=== PATIENT | male | born 1940 | race Caucasian/White ===

== ENCOUNTER → 2020-11-27 09:33 | Outpatient (CLI) | payer MEDICARE, SELFPAY ==
[2020-11-27] MEDS: COVID-19 VACC #1, MRNA(MOD) 100 MCG/0.5 ML VIAL IM (09:43)
== END ==
PROVIDERS: Referring Provider Internal Medicine; Visit Provider Internal Medicine
DX: Z23 Encounter for immunization (principal)
CPT/HCPCS: 0011A; 91301

== ENCOUNTER 2020-12-01 12:07 | Inpatient (IN) | payer OTHER, SELFPAY ==
[2020-12-01] VITALS (13 sets, daily range): BP systolic 108–158; BP diastolic 53–87; PULSE 53–70; RESP 14–21; TEMP 36.3–37.3; O2SAT 96–100; BMI 25.2
--- NOTE | 2020-12-01 | DI.ECHO.S_ITS ---
[place] +---------+ [facility] +---------+ : : [address] : : : [address] : : : : [id number] : : : : Phone: [phone]+ Echocardiogram Report + + :Name: RIKA TREVIÑO Study Date: 12/02/2020 Height: 71 in : :[facility] ReadingLocation: Weight: 181 lb : : Gender: Male BSA: 2.0 m2 : :: 1940 Age: 79 yrs BP: 107/50 mmHg: :Reason For Study: Murmur : :Ordering Physician: : :RABIA DUNN Performed By: Gregor Reeves : :Referring: RABIA DUNN : + + Interpretation Summary The left ventricle is grossly normal size. The ejection fraction is estimated to be 55-60%. The right ventricle is grossly normal size. The right ventricular systolic function is normal. The aortic valve is trileaflet. There is mildly reduced leaflet mobility. The aortic valve mean gradient is 13 mmHg. The peak aortic velocity is 2.59 m/sec. The calculated aortic valve area is 1.5 cm2. There is mild aortic stenosis by limited views. There is mild to moderate tricuspid regurgitation. The right ventricular systolic pressure is estimated to be at least 38 mmHg based on an estimated right atrial pressure of 3 mm Hg. Procedure: A two-dimensional transthoracic echocardiogram with color flow and Doppler was performed. The study quality was technically difficult. There is no prior echocardiogram noted for this patient. The patient was in sinus bradycardia with heart rates between 49-55 bpm during the exam. Left Ventricle: The left ventricle is not well visualized. Left ventricular wall thickness is borderline increased. The left ventricle is grossly normal size. There is no thrombus. The ejection fraction is estimated to be 55-60%. Septal motion is consistent with conduction abnormality. MV E/A: 1.9 Med Peak E' Emerson: 6.6 cm/sec E/E' med: 13.2. Right Ventricle: The right ventricle is grossly normal size. The right ventricle is not well visualized. The right ventricular systolic function is normal. Atria: The left atrium is not well visualized. Right atrium not well visualized. There is no Doppler evidence for an interatrial shunt. The interatrial septum bows toward right atrium consistent with elevated left atrial pressure. Mitral Valve: The mitral valve leaflets appear mildly thickened, but open well. There is mild mitral annular calcification. The mitral valve leaflets are mildly calcified. There is trace mitral regurgitation. Aortic Valve: The aortic valve is not well visualized. The aortic valve is mildly calcified. There is mildly reduced leaflet mobility. The aortic valve is trileaflet. There is mild aortic stenosis by limited views. The aortic valve mean gradient is 13 mmHg. The peak aortic velocity is 2.59 m/sec. The calculated aortic valve area is 1.5 cm2. No aortic regurgitation is present. Tricuspid Valve: The tricuspid valve is not well visualized, but is grossly normal. There is mild to moderate tricuspid regurgitation. The right ventricular systolic pressure is estimated to be at least 38 mmHg based on an estimated right atrial pressure of 3 mm Hg. Pulmonic Valve: The pulmonic valve is not well visualized. There is no pulmonic valvular regurgitation. Great Vessels: The aortic root is normal size. The dimensions of the ascending aorta are normal. The IVC is of normal diameter and collapses greater than 50% with a sniff. This suggests a low right atrial pressure of 3 mm Hg. Pericardium/ Pleura There is no pericardial effusion. There is no pleural effusion. MMode/2D Measurements & Calculations LVIDd: 5.7 cm LVOT diam: 2.3 cm LVIDs: 3.8 cm Ao root diam: 3.1 cm FS: 34.2 % asc Aorta Diam: 3.2 cm IVSd: 1.1 cm LVPWd: 0.98 cm LV laura. diameter/BSA (cm/m^2): 2.8 LV sys. diameter/BSA (cm/m^2): 1.9 RA area: 24.8 cm2 TAPSE: 1.8 cm IVC diam: 2.0 cm Doppler Measurements & Calculations Ao V2 max: 259.1 cm/sec LVOT Max Emerson: 82.1 cm/sec Ao V2 mean: 166.2 cm/sec LV V1 max P.7 mmHg Ao max P.9 mmHg LV V1 VTI: 21.7 cm Ao mean P.8 mmHg TURNER(I,D): 1.5 cm2 Ao V2 VTI: 60.7 cm TURNER(V,D): 1.3 cm2 sev ratio: 0.36 TURNER indexed to BSA (cm^2/m^2): 0.72 MV E max emerson: 87.6 cm/sec TR max emerson: 295.8 cm/sec MV A max emerson: 45.5 cm/sec TR max P.0 mmHg MV E/A: 1.9 PA pr(Accel): 48.2 mmHg Med Peak E' Emerson: 6.6 cm/sec E/E' med: 13.2 Lat Peak E' Emerson: 12.1 cm/sec E/E' lat: 7.2 E/e' average: 10.2 MV dec time: 0.19 sec SV(LVOT): 88.5 ml Reading Physician:11:04 AM
--- NOTE | 2020-12-01 12:13 | DI.RAD.S_ITS ---
PROCEDURE: XR CHEST 1V INDICATIONS: Possible stroke TECHNIQUE: One view of the chest was acquired. COMPARISON: None. FINDINGS: Surgical changes and devices: None. Lungs and pleura: Lungs are clear. No pleural effusions or pneumothorax. Mediastinum: Mediastinal contours appear normal. Heart size is normal. Bones and chest wall: No suspicious bony lesions. Overlying soft tissues appear unremarkable. IMPRESSION: No acute cardiopulmonary process. Dictated by: Luis Thomson M.D. on 12/01/2020 at 12:33 Approved by: Luis Thomson M.D. on 12/01/2020 at 12:33
--- NOTE | 2020-12-01 12:16 | DI.CT.S_ITS ---
PROCEDURE: CT STROKE INDICATIONS: slurred speech and generalized weakness 0300 TECHNIQUE: Noncontrast 4.5 mm thick angled axial sections acquired from the foramen magnum to the vertex, with coronal reformats. For radiation dose reduction, the following was used: automated exposure control, adjustment of mA and/or kV according to patient size. COMPARISON: None. FINDINGS: Image quality: Excellent. CSF spaces: Basal cisterns are patent. No extra-axial fluid collections. Ventricles are normal in size and shape. Brain: No midline shift. No intracranial masses or hemorrhage. Medley-white matter interface is normal. Skull and face: Calvarium and visualized facial bones are intact, without suspicious lesions. Sinuses: Mild bilateral maxillary sinus disease, right greater than left. IMPRESSION: No acute intracranial process. Findings (including all critical results, if any) and recommendations were personally telephoned and discussed with Dr. Dominguez on 12-01-20 12:38 This study fulfills neurological imaging criteria for inclusion or exclusion of acute stroke therapies based on available published neurological imaging guidelines. Dictated by: Flakito Trejo M.D. on 12/01/2020 at 12:37 Approved by: Flakito Trejo M.D. on 12/01/2020 at 12:39
[2020-12-01 12:21] LABS: Add Manual Diff / Slide Review NO; Basophils Absolute Auto 0 /uL (0-100); Basophils Percent Auto 0.4 % (0-2); Eosinophils Absolute Auto 0 /uL (0-450); Eosinophils Percent Auto 0.1 % (2-4); Lymphocytes Absolute Auto 800 /uL (1100-4500); Lymphocytes Percent Auto 11.2 % (25-40); Mean Corpuscular HGB Conc 32.1 % (30-36); Mean Corpuscular Hemoglobin 27.4 PG (26-34); Mean Corpuscular Volume 85.4 fL (80-100); Monocytes Absolute Auto 600 /uL (0-900); Monocytes Percent Auto 8.3 % (3-14); Neutrophils Absolute Auto 5800 /uL (1500-7000); Platelet Count 241 X10^3/uL (150-400); Red Blood Cell Count 1.78 X10^6/uL (4.5-5.9); Red Cell Distribution Width 18.6 % (11.6-14.8); White Blood Cell Count 7.3 X10^3/uL (4.5-11.0)
[2020-12-01 12:26] LABS: Hematocrit 15.2 % (41-53); Hemoglobin 4.9 g/dL (13.5-17.5)
[2020-12-01 12:33] LABS: Prothrombin Time 34.7 SECONDS (10.1-12.7)
[2020-12-01 12:35] LABS: PTT Partial Thromboplastin Tim 38 SECONDS (26.4-36.2)
[2020-12-01 12:37] LABS: Alanine Aminotransferase 24 IU/L (<50); Albumin 3.2 g/dL (3.5-5.0); Albumin Globulin Ratio 1.1 (1.0-2.8); Alkaline Phosphatase 73 U/L (38-126); Aspartate Aminotransferase 29 IU/L (17-59); BUN Creatinine Ratio 39.2 (6-22); Bilirubin Total 0.4 mg/dL (0.2-1.3); Blood Urea Nitrogen 40 mg/dL (9-20); Calcium 8.4 mg/dL (8.4-10.2); Carbon Dioxide 23 mmol/L (22-32); Chloride 109 mmol/L (98-107); Creatine Kinase 100 U/L (55-170); Estimated Glomerular Filt Rate > 60.0 mL/min (>60); Globulin 2.9 g/dL (1.7-4.1); Glucose 125 mg/dL (80-110); HEMOLYSIS 24 (0-50); Potassium 3.2 mmol/L (3.4-5.1); Sodium 141 mmol/L (137-145); Total Protein 6.1 g/dL (6.3-8.2)
--- NOTE | 2020-12-01 12:46 | ED.NEUROSD ---
HPI - Neuro Symptoms/Deficit General Chief Complaint: Neuro Symptoms/Deficit Stated Complaint: weakness Time Seen by Provider: 12/01/20 12:10 Source: EMS Mode of arrival: EMS Limitations: altered mental status History of Present Illness HPI Narrative: 79-year-old male former smoker on some type of on identified blood thinner presents by EMS for altered mental status and generalized weakness with confusion since about 3:00 a.m. this morning. He denies any traumas or falls. He denies any change in medications. He denies any nausea, vomiting or diarrhea. He denies chest pain or shortness of breath. He has had no change in stools and denies any black and tarry stools. He denies any history of GI bleed. He was not Onset (ago): hour(s) On Anticoagulants: Yes Related Data Allergies Allergy/AdvReac Type Severity Reaction Status Date / Time No Known Drug Allergies Allergy Verified 12/01/20 12:12 Review of Systems Hematologic/Lymphatic On Anticoagulants: Yes Exam Narrative Exam Narrative: GENERAL: [79] year old patient appears stated age. Thin, slightly confused, apparently at baseline per family HEAD: Atraumatic. Normocephalic. EYES: Pale conjunctiva Pupils equal round and reactive. Extraocular motions intact. No scleral icterus. No injection or drainage. ENT: Nose without bleeding, purulent drainage. Throat without erythema, tonsillar hypertrophy or exudate. Airway patent. NECK: Trachea midline. Non tender CARDIOVASCULAR: Regular rate and rhythm without murmurs, gallops, or rubs. RESPIRATORY: Clear to auscultation. Breath sounds equal bilaterally. No wheezes, rales, or rhonchi. GASTROINTESTINAL: Abdomen soft, non-tender, nondistended. RECTAL: Melena on exam, no bright red blood, heme-positive. Performed with nursing music executive at bedside and patient permission EXTREMITIES: No edema or joint tenderness. BACK: Nontender without deformity or crepitance. No flank tenderness. NEURO: AOx3. SKIN: No rash or erythema of visible areas Initial Vital Signs Initial Vital Signs: Vital Signs Temperature 97.4 F L 12/01/20 12:08 Pulse Rate 70 12/01/20 12:08 Respiratory Rate 16 12/01/20 12:08 Blood Pressure 158/87 H 12/01/20 12:08 Pulse Oximetry 98 12/01/20 12:08 Course Orders Ordered: ED Orders 12/01/20 12:13 XR chest 1V Stat Urine Drug Screen, Rapid Stat EKG-12 Lead Stat 12/01/20 12:16 CT Stroke Stat 12/01/20 12:17 Complete Blood Count AUTO DIFF Stat Comprehensive Metabolic Panel Stat Haptoglobin Stat Iron Profile (w/ % Saturation) Stat Lactate Dehydrogenase Stat Partial Thromboplastin Time Stat Prothrombin Time INR Stat Reticulocyte Count, Percent Stat Troponin & CK Cardiac Panel Stat 12/01/20 12:20 Packed Cells Stat Type and Screen Stat 12/01/20 12:40 COVID19 - ADMIT (WRIST HEMMER swab/PCR) Stat 12/01/20 12:53 Consult to General Surgery Stat 12/01/20 13:43 Education, smoking cessation ONGOING 12/02/20 Basic Metabolic Panel Routine Complete Blood Count AUTO DIFF Routine Prothrombin Time INR Routine Acetaminophen (Acetaminophen 325 Mg Tablet) 650 mg PO Q6HR PRN PRN Reason: Fever/Mild Pain (1-3) Naloxone HCl (Naloxone 0.4 Mg/Ml Vial) 0.2 mg IV Q2MIN PRN PRN Reason: Opiate Reversal Pantoprazole Sodium (Pantoprazole 40 Mg Vial) 40 mg IV BID FE Discontinued Medications Phytonadione 5 mg/ Dextrose 50.5 mls @ 101 mls/hr IV NOW ONE Stop: 12/01/20 13:46 Last Admin: 12/01/20 14:40 Dose: 101 mls/hr Documented by: LAUREN Pantoprazole Sodium (Pantoprazole 40 Mg Vial) 40 mg IV NOW ONE Stop: 12/01/20 14:46 Last Admin: 12/01/20 14:45 Dose: Not Given Documented by: LAUREN Consultations Consultation #1: I spoke with on-call General surgery (Soham) given his presentation of upper GI bleed, requiring transfusions, while on anticoagulation. She is happy to be involved in consultation Consultation #2: hospitalist happy to accept Vital Signs Vital signs: Vital Signs - 8 hr 12/01/20 12:08 Temperature 97.4 F L Pulse Rate 70 Respiratory Rate 16 Blood Pressure 158/87 H Pulse Oximetry 98 MDM - Neuro Symptoms/Deficit Lab Data Result diagrams: 12/01/20 12:17 12/01/20 12:17 Labs: Lab Results 12/01/20 12/01/20 12/01/20 Range/Units 12:17 12:17 12:17 WBC 7.3 (4.5-11.0) X10^3/uL RBC 1.78 L (4.5-5.9) X10^6/uL Hgb 4.9 L* (13.5-17.5) g/dL Hct 15.2 L* (41-53) % MCV 85.4 (80-100) fL MCH 27.4 (26-34) PG MCHC 32.1 (30-36) % RDW 18.6 H (11.6-14.8) % Plt Count 241 (150-400) X10^3/uL Neut % (Auto) 80.0 H (50-75) % Lymph % (Auto) 11.2 L (25-40) % Barnwell % (Auto) 8.3 (3-14) % Eos % (Auto) 0.1 L (2-4) % Baso % (Auto) 0.4 (0-2) % Neut # (Auto) 5800 (3065-6195) /uL Lymph # (Auto) 800 L (3525-8699) /uL Barnwell # (Auto) 600 (0-900) /uL Eos # (Auto) 0 (0-450) /uL Baso # (Auto) 0 (0-100) /uL Percent Retic (0.87-2.60) % PT 34.7 H (10.1-12.7) SECONDS INR 3.0 H (0.9-1.3) APTT 38 H (26.4-36.2) SECONDS Sodium 141 (137-145) mmol/L Potassium 3.2 L (3.4-5.1) mmol/L Chloride 109 H (98-107) mmol/L Carbon Dioxide 23 (22-32) mmol/L BUN 40 H (9-20) mg/dL Creatinine 1.02 (0.66-1.25) mg/dL Estimated GFR > 60.0 (>60) mL/min BUN/Creatinine Ratio 39.2 H (6-22) Glucose 125 H (80-110) mg/dL Calcium 8.4 (8.4-10.2) mg/dL Iron (49-181) ug/dL TIBC (261-462) ug/dL % Saturation (20-50) % Transferrin (206-381) mg/dL Total Bilirubin 0.4 (0.2-1.3) mg/dL AST 29 (17-59) IU/L ALT 24 (<50) IU/L Alkaline Phosphatase 73 (38-126) U/L Lactate Dehydrogenase (313-618) U/L Total Creatine Kinase 100 (55-170) U/L CK-MB (CK-2) TNP CK-MB (CK-2) Rel Index TNP Troponin I < 0.012 (0.01-0.034) ng/mL Total Protein 6.1 L (6.3-8.2) g/dL Albumin 3.2 L (3.5-5.0) g/dL Globulin 2.9 (1.7-4.1) g/dL Albumin/Globulin Ratio 1.1 (1.0-2.8) SARS-CoV-2 (PCR) (Negative) Blood Type Antibody Screen Crossmatch 12/01/20 12/01/20 12/01/20 Range/Units 12:17 12:17 12:17 WBC (4.5-11.0) X10^3/uL RBC (4.5-5.9) X10^6/uL Hgb (13.5-17.5) g/dL Hct (41-53) % MCV (80-100) fL MCH (26-34) PG MCHC (30-36) % RDW (11.6-14.8) % Plt Count (150-400) X10^3/uL Neut % (Auto) (50-75) % Lymph % (Auto) (25-40) % Barnwell % (Auto) (3-14) % Eos % (Auto) (2-4) % Baso % (Auto) (0-2) % Neut # (Auto) (6884-4700) /uL Lymph # (Auto) (8113-5701) /uL Barnwell # (Auto) (0-900) /uL Eos # (Auto) (0-450) /uL Baso # (Auto) (0-100) /uL Percent Retic 5.9 H (0.87-2.60) % PT (10.1-12.7) SECONDS INR (0.9-1.3) APTT (26.4-36.2) SECONDS Sodium (137-145) mmol/L Potassium (3.4-5.1) mmol/L Chloride (98-107) mmol/L Carbon Dioxide (22-32) mmol/L BUN (9-20) mg/dL Creatinine (0.66-1.25) mg/dL Estimated GFR (>60) mL/min BUN/Creatinine Ratio (6-22) Glucose (80-110) mg/dL Calcium (8.4-10.2) mg/dL Iron 14 L (49-181) ug/dL TIBC 326 (261-462) ug/dL % Saturation 4 L (20-50) % Transferrin 263 (206-381) mg/dL Total Bilirubin (0.2-1.3) mg/dL AST (17-59) IU/L ALT (<50) IU/L Alkaline Phosphatase (38-126) U/L Lactate Dehydrogenase 559 (313-618) U/L Total Creatine Kinase (55-170) U/L CK-MB (CK-2) CK-MB (CK-2) Rel Index Troponin I (0.01-0.034) ng/mL Total Protein (6.3-8.2) g/dL Albumin (3.5-5.0) g/dL Globulin (1.7-4.1) g/dL Albumin/Globulin Ratio (1.0-2.8) SARS-CoV-2 (PCR) (Negative) Blood Type Antibody Screen Crossmatch 12/01/20 12/01/20 Range/Units 12:20 12:40 WBC (4.5-11.0) X10^3/uL RBC (4.5-5.9) X10^6/uL Hgb (13.5-17.5) g/dL Hct (41-53) % MCV (80-100) fL MCH (26-34) PG MCHC (30-36) % RDW (11.6-14.8) % Plt Count (150-400) X10^3/uL Neut % (Auto) (50-75) % Lymph % (Auto) (25-40) % Barnwell % (Auto) (3-14) % Eos % (Auto) (2-4) % Baso % (Auto) (0-2) % Neut # (Auto) (4146-6483) /uL Lymph # (Auto) (0386-9438) /uL Barnwell # (Auto) (0-900) /uL Eos # (Auto) (0-450) /uL Baso # (Auto) (0-100) /uL Percent Retic (0.87-2.60) % PT (10.1-12.7) SECONDS INR (0.9-1.3) APTT (26.4-36.2) SECONDS Sodium (137-145) mmol/L Potassium (3.4-5.1) mmol/L Chloride (98-107) mmol/L Carbon Dioxide (22-32) mmol/L BUN (9-20) mg/dL Creatinine (0.66-1.25) mg/dL Estimated GFR (>60) mL/min BUN/Creatinine Ratio (6-22) Glucose (80-110) mg/dL Calcium (8.4-10.2) mg/dL Iron (49-181) ug/dL TIBC (261-462) ug/dL % Saturation (20-50) % Transferrin (206-381) mg/dL Total Bilirubin (0.2-1.3) mg/dL AST (17-59) IU/L ALT (<50) IU/L Alkaline Phosphatase (38-126) U/L Lactate Dehydrogenase (313-618) U/L Total Creatine Kinase (55-170) U/L CK-MB (CK-2) CK-MB (CK-2) Rel Index Troponin I (0.01-0.034) ng/mL Total Protein (6.3-8.2) g/dL Albumin (3.5-5.0) g/dL Globulin (1.7-4.1) g/dL Albumin/Globulin Ratio (1.0-2.8) SARS-CoV-2 (PCR) Negative (Negative) Blood Type B Positive Antibody Screen Negative Crossmatch See Detail Point of Care Testing Stool Occult Blood Positive MDM Narrative Medical decision making narrative: Patient is a very poor historian and was unable to contribute much more. It sounds like he was in his normal state of health up until last night when he started feeling confused and weak. Though he describes any obvious source of bleeding his rectal exam is consistent with melena, H&H is lower and will require transfusion as well as hospitalization for evaluation and stabilization of his condition Discharge Plan Departure Patient Disposition: Admitted As Inpatient Clinical Impression: Acute upper gastrointestinal bleeding, Anticoagulation adequate Admit Date/Time: 12/01/20 14:17 Admit Provider: Raymond Babcock
[2020-12-01 12:49] LABS: Troponin I < 0.012 ng/mL (0.01-0.034)
[2020-12-01 14:04] LABS: COVID19 - ADMIT (NP swab/PCR) Negative (Negative)
[2020-12-01 14:16] LABS: Reticulocyte Count, Percent 5.9 % (0.87-2.60)
--- NOTE | 2020-12-01 14:23 | PC.NURSE ---
attempted to contact son and , both numbers given to staff no longer in service.
[2020-12-01 14:26] LABS: Lactate Dehydrogenase 559 U/L (313-618)
[2020-12-01 14:27] LABS: HEMOLYSIS < 15 (0-50); Iron 14 ug/dL (49-181)
[2020-12-01 14:37] LABS: Percent Iron Saturation 4 % (20-50); Total Iron Binding Capacity 326 ug/dL (261-462); Transferrin 263 mg/dL (206-381)
[2020-12-01] MEDS: PHYTONADIONE (VIT K1) 5 MG in DEXTROSE 5 % IN WATER 50 ML 101 ML IV (14:40)
--- NOTE | 2020-12-01 15:32 | PC.NURSE ---
Admit Note Pt arrived to room 226 from ER at 1420, transferred to bed via slider board. Very drowsy, readily awakens to voice and is able to answer questions but is a poor historian concerning his home meds and past medical history. Permission given to obtain history from ([employer]). Pt with old dried dark stool to buttocks, small amount dark tarry stool noted. Oriented to room and call/tv/bed controls. Call light within reach. Bed alarm on for safety. No belongings with pt other than one pair of boxers. 1st unit of PRBCs currently infusing.
--- NOTE | 2020-12-01 19:43 | P.HP_ITS ---
History of Present Illness History of Present Illness Date Patient Seen: 12/01/20 Time Patient Seen: 14:43 Chief complaint: weakness Narrative: Mr. Pro is a 79M who comes in with altered mental status. History is difficult to obtain from patient and . He is on a blood thinner, neither is sure which one. He says it is for a cardiac condition. And it appears he is atrial fibrillation here, with an elevated INR of 3.0, but they can not confirm he has afib or is on coumadin. Patient presented with weakness and confusion that started this morning. He denies any falls, nausea, vomting, diarrhea, pain. No shortness of breath. He had no black or tarry stools. No vomiting blood. He did not have weakness, dizziness. He does not remember when last colonoscopy was. In the ER he was noted to have normal vital signs. Labs notable for hemoglobin of 4.9, INR 3.0, potassium 3.2, creatinine 1.02, BUN 40. He was noted to have melenotic appearing, guaiac positive stools. He was ordered for trasnfusion of blood. He was ordered for IV vitamin K, and IV protonix. Surgery was consulted for EGD. He was admitted for further treatment. Patient History Family & Social History Safety & Behavioral: Feels Safe in Current Yes Environment Been Physically Hurt or No Threatened By a Person Meds Home Medications and Allergies Allergies Allergy/AdvReac Type Severity Reaction Status Date / Time No Known Drug Allergies Allergy Verified 12/01/20 12:12 Review of Systems Review of Systems Narrative: 14 systems reviewed and negative aside from what is noted in HPI Exam Vital Signs (past 8 hours): - 12/01/20 12:08 12/01/20 14:20 12/01/20 14:52 Temperature 97.4 F L 98.2 F 98.2 F Pulse Rate 70 62 62 Respiratory Rate 16 17 17 Blood Pressure 158/87 H 118/56 L 118/56 L Pulse Oximetry 98 97 12/01/20 15:15 12/01/20 16:00 12/01/20 17:00 Temperature 98.1 F 98.4 F Pulse Rate 60 55 L Respiratory Rate 14 16 Blood Pressure 119/56 L 108/54 L Pulse Oximetry 98 98 12/01/20 18:38 12/01/20 18:43 12/01/20 19:12 Temperature 98.8 F 98.8 F 98.8 F Pulse Rate 56 L 56 L 59 L Respiratory Rate 17 17 19 Blood Pressure 114/53 L 114/53 L 114/53 L Pulse Oximetry 96 Oxygen Delivery Method Room Air Oxygen Flow Rate 2 Narrative Exam Narrative: GEN: chronically ill appearing, thin, confused HEENT: PERRL, moist mucous membranes, pale conjunctiva NECK: trachea midline, no JVD CV: RRR with 3/6 systolic ejection murmur PULM: clear bilaterally ABD: soft, nontender, nondistended, with no organomegaly EXT: warm and well perfused with no edema SKIN: no rashes noted NEURO: confused, moving all extremities PSYCH: pleasant, cooperative Objective Labs Result Diagrams: 12/01/20 12:17 12/01/20 12:17 Labs: Laboratory Results - last 24 hr 12/01/20 12/01/20 12/01/20 12:17 12:17 12:17 WBC 7.3 RBC 1.78 L Hgb 4.9 L* Hct 15.2 L* MCV 85.4 MCH 27.4 MCHC 32.1 RDW 18.6 H Plt Count 241 Neut % (Auto) 80.0 H Lymph % (Auto) 11.2 L [place] % (Auto) 8.3 Eos % (Auto) 0.1 L Baso % (Auto) 0.4 Neut # (Auto) 5800 Lymph # (Auto) 800 L [place] # (Auto) 600 Eos # (Auto) 0 Baso # (Auto) 0 Percent Retic PT 34.7 H INR 3.0 H APTT 38 H Sodium 141 Potassium 3.2 L Chloride 109 H Carbon Dioxide 23 BUN 40 H Creatinine 1.02 Estimated GFR > 60.0 BUN/Creatinine Ratio 39.2 H Glucose 125 H Calcium 8.4 Iron TIBC % Saturation Transferrin Total Bilirubin 0.4 AST 29 ALT 24 Alkaline Phosphatase 73 Lactate Dehydrogenase Total Creatine Kinase 100 CK-MB (CK-2) TNP CK-MB (CK-2) Rel Index TNP Troponin I < 0.012 Total Protein 6.1 L Albumin 3.2 L Globulin 2.9 Albumin/Globulin Ratio 1.1 SARS-CoV-2 (PCR) Blood Type Antibody Screen Crossmatch 12/01/20 12/01/20 12/01/20 12:17 12:17 12:17 WBC RBC Hgb Hct MCV MCH MCHC RDW Plt Count Neut % (Auto) Lymph % (Auto) [place] % (Auto) Eos % (Auto) Baso % (Auto) Neut # (Auto) Lymph # (Auto) [place] # (Auto) Eos # (Auto) Baso # (Auto) Percent Retic 5.9 H PT INR APTT Sodium Potassium Chloride Carbon Dioxide BUN Creatinine Estimated GFR BUN/Creatinine Ratio Glucose Calcium Iron 14 L TIBC 326 % Saturation 4 L Transferrin 263 Total Bilirubin AST ALT Alkaline Phosphatase Lactate Dehydrogenase 559 Total Creatine Kinase CK-MB (CK-2) CK-MB (CK-2) Rel Index Troponin I Total Protein Albumin Globulin Albumin/Globulin Ratio SARS-CoV-2 (PCR) Blood Type Antibody Screen Crossmatch 12/01/20 12/01/20 12:20 12:40 WBC RBC Hgb Hct MCV MCH MCHC RDW Plt Count Neut % (Auto) Lymph % (Auto) [place]imer % (Auto) Eos % (Auto) Baso % (Auto) Neut # (Auto) Lymph # (Auto) [place] # (Auto) Eos # (Auto) Baso # (Auto) Percent Retic PT INR APTT Sodium Potassium Chloride Carbon Dioxide BUN Creatinine Estimated GFR BUN/Creatinine Ratio Glucose Calcium Iron TIBC % Saturation Transferrin Total Bilirubin AST ALT Alkaline Phosphatase Lactate Dehydrogenase Total Creatine Kinase CK-MB (CK-2) CK-MB (CK-2) Rel Index Troponin I Total Protein Albumin Globulin Albumin/Globulin Ratio SARS-CoV-2 (PCR) Negative Blood Type B Positive Antibody Screen Negative Crossmatch See Detail Assessment & Plan Assessment & Plan narrative: Mr. Pro is a 79M with unknown medical history on a blood thinner, uncertain which, who presents with confusion found to have hemo globin of 4.9. 1. Anemia from GI bleeding, acute -patient currently hemodynamically stable with no tachycardia and normal blood pressure -has melenotic appearing stool, additionall elevated BUN consistent with possible upper GI bleed -will be NPO for possible EGD tomorrow -ordered for IV protonix -ordered for 2U PRBC, then recheck CBC after -check for other etiologies of anemia, check iron panel, b12/folate, retic count, haptoglobin -given vitamin k for elevated INR 2. Elevated INR -patient appears to possibly have atrial fibrillation based on telemetry -possibly on coumadin with elevated INR -will need to confirm medications 3. Systolic ejection murmur -ordered for ECHO to eval possible aortic stenosis Patient was unable to provide full medication list, and unable to provide full medical history. Will see if transfusion helps with patient's confusion CODE: DNR IVF: none Diet: NPO after midnight DVT ppx: SCDs due to bleeding
[2020-12-01 21:30] LABS: Folate 7.3 ng/mL (2.76-20.0); Vitamin B12 303 pg/mL (239-931)
--- NOTE | 2020-12-01 21:35 | PC.NURSE ---
Evening Shift Note This RN unable to contact patients to complete admission assessment. [phone] called, new number obtained by day shift nurse from . No answer, voicemail left with call back number at [phone]. At 2129 number [phone] on patient's admission paged called, no answer and this RN called and left message. This RN noted patient's cell phone in room. Patient more alert and able to unlock phone after several minutes. This RN with consent to search phone for 's number verified that [phone] number correct, patient states never answers phone. This RN also unable to obtain patients DPOA numbers per day shift nurse and names noted on admission. This RN attempted to verify medication with patient and patient unable to recall medications. Asked patient what pharmacy dispenses [facility]. Will pass on to mini shifter nurse and attempt to call patient's if time allows by change of shift.
[2020-12-01] MEDS: PANTOPRAZOLE 40 MG VIAL IV (22:26)
[2020-12-01 23:37] LABS: Mean Corpuscular HGB Conc 33.9 % (30-36); Mean Corpuscular Hemoglobin 29.2 PG (26-34); Platelet Count 170 X10^3/uL (150-400); Red Blood Cell Count 2.07 X10^6/uL (4.5-5.9); Red Cell Distribution Width 16.5 % (11.6-14.8); White Blood Cell Count 6.8 X10^3/uL (4.5-11.0)
[2020-12-01 23:41] LABS: Hematocrit 17.8 % (41-53)
[2020-12-02] VITALS (14 sets, daily range): BP systolic 99–145; BP diastolic 50–68; PULSE 45–54; RESP 11–18; TEMP 36.4–37.5; O2SAT 92–100
[2020-12-02] MEDS: FERROUS SULFATE 325 MG TABLET PO ×2 (00:19→17:16)
[2020-12-02 00:20] LABS: Alanine Aminotransferase 19 IU/L (<50); Albumin 2.3 g/dL (3.5-5.0); Alkaline Phosphatase 56 U/L (38-126); Aspartate Aminotransferase 25 IU/L (17-59); BUN Creatinine Ratio 39.8 (6-22); Bilirubin Total 1.4 mg/dL (0.2-1.3); Blood Urea Nitrogen 37 mg/dL (9-20); Calcium 7.8 mg/dL (8.4-10.2); Carbon Dioxide 28 mmol/L (22-32); Chloride 112 mmol/L (98-107); Estimated Glomerular Filt Rate > 60.0 mL/min (>60); Glucose 83 mg/dL (80-110); Potassium 3.2 mmol/L (3.4-5.1); Sodium 143 mmol/L (137-145); Total Protein 4.3 g/dL (6.3-8.2)
[2020-12-02 00:21] LABS: Albumin Globulin Ratio 1.2 (1.0-2.8); HEMOLYSIS < 15 (0-50)
[2020-12-02] MEDS: SODIUM CHLORIDE 0.9% FLUSH 10 ML IV ×2 (00:48→08:13)
--- NOTE | 2020-12-02 02:23 | PC.NURSE ---
Addendum entered by Stacie Ayers R.N. 12/02/20 05:46: Reviewed labs and vital signs with Luca MELARA, received orders to DC IVF and to give 4th unit of PRBC. Addendum entered by Stacie Ayers R.N. 12/02/20 03:34: 3rd unit of blood transfused and noted BP to have dropped to 99/55 with HR of 45. KELTON Segovia, informed and new orders received. BIBLICAL LANGUAGES PROFESSOR states she did not want transfusion reaction initiated. Verbal order to hold on giving 4th unit at this time. Original Note: patient arouses easily and is able to answer questions; knew his name, birthdate, age and that he is in [place]. Breath sounds CTA with sat of 100% currently on oxygen at 2L/min. HRR w/murmur but bradycardic with rate in 40-50 range. 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 Denies nausea. BT present and abdomen is soft. Has been incontinent of urine. Staff assisting patient to reposition q2h although he does participate in mobility. Has 1+ bilateral LE edema from mid thigh down. Denies pain. Wearing bilateral calf SCD's. Fall risk score is high and bed alarm is activated. h&h rechecked after transfusion complete at end of evening shift and critical lab reported to BIBLICAL LANGUAGES PROFESSOR so new orders received for additional transfusion of 2 units. Currently has 3rd unit infusing.
[2020-12-02] MEDS: LACTATED RINGERS 1,000 ML 84 ML IV (03:39)
[2020-12-02] MEDS: POTASSIUM CHLORIDE 40 MEQ in SODIUM CHLORIDE 0.9% 500 ML 130 ML IV (03:51)
[2020-12-02 04:22] LABS: Basophils Absolute Auto 0 /uL (0-100); Basophils Percent Auto 0.5 % (0-2); Eosinophils Absolute Auto 0 /uL (0-450); Eosinophils Percent Auto 0.4 % (2-4); Lymphocytes Absolute Auto 900 /uL (1100-4500); Lymphocytes Percent Auto 12.6 % (25-40); Mean Corpuscular HGB Conc 33.4 % (30-36); Mean Corpuscular Hemoglobin 28.5 PG (26-34); Mean Corpuscular Volume 85.5 fL (80-100); Monocytes Absolute Auto 800 /uL (0-900); Monocytes Percent Auto 11.5 % (3-14); Neutrophils Absolute Auto 5200 /uL (1500-7000); Platelet Count 154 X10^3/uL (150-400); Red Blood Cell Count 2.27 X10^6/uL (4.5-5.9); Red Cell Distribution Width 16.1 % (11.6-14.8)
[2020-12-02 04:24] LABS: BUN Creatinine Ratio 38.8 (6-22); Blood Urea Nitrogen 33 mg/dL (9-20); Calcium 7.5 mg/dL (8.4-10.2); Carbon Dioxide 27 mmol/L (22-32); Chloride 112 mmol/L (98-107); Estimated Glomerular Filt Rate > 60.0 mL/min (>60); Glucose 93 mg/dL (80-110); HEMOLYSIS < 15 (0-50); Sodium 142 mmol/L (137-145)
[2020-12-02 04:26] LABS: Hemoglobin 6.5 g/dL (13.5-17.5)
[2020-12-02 04:27] LABS: Add Manual Diff / Slide Review SLIDE REVIEW; Hematocrit 19.4 % (41-53)
[2020-12-02 04:32] LABS: INR 1.7 (0.9-1.3); Prothrombin Time 19.2 SECONDS (10.1-12.7)
[2020-12-02 04:37] LABS: Potassium 2.7 mmol/L (3.4-5.1)
[2020-12-02 05:14] LABS: Haptoglobin 159 mg/dL (34-355)
[2020-12-02 07:17] LABS: HEMOLYSIS < 15 (0-50); Iron 172 ug/dL (49-181)
[2020-12-02 07:28] LABS: Percent Iron Saturation 67 % (20-50); Total Iron Binding Capacity 256 ug/dL (261-462); Transferrin 180 mg/dL (206-381)
[2020-12-02 07:33] LABS: Anisocytosis 1+; Poikilocytosis 1+; Polychromasia 1+
[2020-12-02] MEDS: PANTOPRAZOLE 40 MG VIAL IV ×2 (08:13→21:07)
[2020-12-02] MEDS: POTASSIUM CHLORIDE 20 MEQ TAB 40 MEQ PO ×3 (11:02→21:33)
[2020-12-02] MEDS: POTASSIUM CHLORIDE 40 MEQ in SODIUM CHLORIDE 0.9% 500 ML 130 MEQ IV (11:02)
--- NOTE | 2020-12-02 11:17 | P.CONS_ITS ---
History of Present Illness Consult details Date Patient Seen: 12/02/20 Time Patient Seen: 11:17 Chief complaint: weakness Reason for consult: profound anemia Requesting provider: Yo Dominguez Narrative: 79-year-old male, presenting to the emergency department with weakness and confusion. Noted at that time to have profound anemia, and an INR of 3.0. Both patient and are poor historians. They know that he is on a blood thinner but cannot remember which, and that is for cardiac issues possibly atrial fibrillation observed during this hospital stay. Patient admitted to ICU for observation, transfusion, and correction of metabolic abnormalities. Vitamin K has brought his INR to 1.7. We can assume but not confirm that the blood thinner is in fact warfarin. However Plavix and Xeralto have been identified in his meds. . Meds Home Medications and Allergies Home Medications Medication Instructions Recorded Confirmed Type amiodarone 200 mg PO BID 12/02/20 12/02/20 History atorvastatin 40 mg PO DAILY 12/02/20 12/02/20 History clopidogrel 75 mg PO DAILY 12/02/20 12/02/20 History ferrous sulfate 325 mg PO Q OTHER DAY 12/02/20 12/02/20 History magnesium oxide 400 mg PO DAILY 12/02/20 12/02/20 History metoprolol succinate 50 mg PO BID 12/02/20 12/02/20 History omeprazole 40 mg PO DAILY 12/02/20 12/02/20 History rivaroxaban [Xarelto] 20 mg PO DAILY 12/02/20 12/02/20 History sacubitril-valsartan [Entresto] 0.5 tab PO BID 12/02/20 12/02/20 History Allergies Allergy/AdvReac Type Severity Reaction Status Date / Time No Known Drug Allergies Allergy Verified 12/01/20 12:12 Review of Systems Review of Systems ROS: Yes unobtainable due to mental status Exam Vital Signs (past 8 hours): - 12/02/20 03:23 12/02/20 04:19 12/02/20 05:25 Temperature 99 F 98.3 F Pulse Rate 45 L 52 L 54 L Respiratory Rate 15 17 17 Blood Pressure 99/55 L 120/56 L 129/61 Pulse Oximetry 98 12/02/20 05:40 12/02/20 05:48 12/02/20 08:00 Temperature 98.4 F 98.5 F Pulse Rate 49 L 53 L Respiratory Rate 16 18 Blood Pressure 107/50 L 136/63 Pulse Oximetry 97 97 Oxygen Delivery Method Room Air Oxygen Flow Rate 0 Const General: cooperative and comfortable Nutritional Appearance: average body habitus Orientation: alert, oriented to person and oriented to place [facility] Head: normal to inspection, normocephalic and atraumatic Ears: hearing grossly normal bilaterally Nose: external nose normal Face and sinus: normal facial exam Eyes General: appearance normal, both eyes and all related structures Sclera: sclerae normal Neck Neck: trachea midline Chest Chest: normal inspection of the chest Resp Effort & Inspection: normal respiratory effort and able to speak in complete sentences Cardio Rate: tachycardic Rhythm: abnormal rhythm GI Inspection: normal to inspection Palpation: soft Skin General: no rashes or lesions noted Trauma: no lacerations or abrasions Wounds: no wounds Neuro General: patient alert and patient awake Speech: speech normal Extrem General: normal to inspection and full ROM Psych Judgment: fair Objective Labs Result Diagrams: 12/02/20 04:05 12/02/20 04:05 Labs: Laboratory Results - last 24 hr 12/01/20 12/01/20 12/01/20 12:17 12:17 12:17 WBC 7.3 RBC 1.78 L Hgb 4.9 L* Hct 15.2 L* MCV 85.4 MCH 27.4 MCHC 32.1 RDW 18.6 H Plt Count 241 Neut % (Auto) 80.0 H Lymph % (Auto) 11.2 L Mathews % (Auto) 8.3 Eos % (Auto) 0.1 L Baso % (Auto) 0.4 Neut # (Auto) 5800 Lymph # (Auto) 800 L Mathews # (Auto) 600 Eos # (Auto) 0 Baso # (Auto) 0 RBC Morphology Polychromasia Poikilocytosis Anisocytosis Percent Retic Haptoglobin PT 34.7 H INR 3.0 H APTT 38 H Sodium 141 Potassium 3.2 L Chloride 109 H Carbon Dioxide 23 BUN 40 H Creatinine 1.02 Estimated GFR > 60.0 BUN/Creatinine Ratio 39.2 H Glucose 125 H Calcium 8.4 Iron TIBC % Saturation Transferrin Total Bilirubin 0.4 AST 29 ALT 24 Alkaline Phosphatase 73 Lactate Dehydrogenase Total Creatine Kinase 100 CK-MB (CK-2) TNP CK-MB (CK-2) Rel Index TNP Troponin I < 0.012 Total Protein 6.1 L Albumin 3.2 L Globulin 2.9 Albumin/Globulin Ratio 1.1 Vitamin B12 Folate Nasal Screen MRSA (PCR) SARS-CoV-2 (PCR) Blood Type Antibody Screen Crossmatch 12/01/20 12/01/20 12/01/20 12:17 12:17 12:17 WBC RBC Hgb Hct MCV MCH MCHC RDW Plt Count Neut % (Auto) Lymph % (Auto) Mathews % (Auto) Eos % (Auto) Baso % (Auto) Neut # (Auto) Lymph # (Auto) Mathews # (Auto) Eos # (Auto) Baso # (Auto) RBC Morphology Polychromasia Poikilocytosis Anisocytosis Percent Retic Haptoglobin 159 PT INR APTT Sodium Potassium Chloride Carbon Dioxide BUN Creatinine Estimated GFR BUN/Creatinine Ratio Glucose Calcium Iron 14 L TIBC 326 % Saturation 4 L Transferrin 263 Total Bilirubin AST ALT Alkaline Phosphatase Lactate Dehydrogenase 559 Total Creatine Kinase CK-MB (CK-2) CK-MB (CK-2) Rel Index Troponin I Total Protein Albumin Globulin Albumin/Globulin Ratio Vitamin B12 Folate Nasal Screen MRSA (PCR) SARS-CoV-2 (PCR) Blood Type Antibody Screen Crossmatch 12/01/20 12/01/20 12/01/20 12:17 12:17 12:20 WBC RBC Hgb Hct MCV MCH MCHC RDW Plt Count Neut % (Auto) Lymph % (Auto) Mathews % (Auto) Eos % (Auto) Baso % (Auto) Neut # (Auto) Lymph # (Auto) Mathews # (Auto) Eos # (Auto) Baso # (Auto) RBC Morphology Polychromasia Poikilocytosis Anisocytosis Percent Retic 5.9 H Haptoglobin PT INR APTT Sodium Potassium Chloride Carbon Dioxide BUN Creatinine Estimated GFR BUN/Creatinine Ratio Glucose Calcium Iron TIBC % Saturation Transferrin Total Bilirubin AST ALT Alkaline Phosphatase Lactate Dehydrogenase Total Creatine Kinase CK-MB (CK-2) CK-MB (CK-2) Rel Index Troponin I Total Protein Albumin Globulin Albumin/Globulin Ratio Vitamin B12 303 Folate 7.3 Nasal Screen MRSA (PCR) SARS-CoV-2 (PCR) Blood Type B Positive Antibody Screen Negative Crossmatch See Detail 12/01/20 12/01/20 12/01/20 12:40 15:25 23:30 WBC 6.8 RBC 2.07 L Hgb 6.0 L* Hct 17.8 L* MCV 86.0 MCH 29.2 MCHC 33.9 RDW 16.5 H Plt Count 170 Neut % (Auto) Lymph % (Auto) Mathews % (Auto) Eos % (Auto) Baso % (Auto) Neut # (Auto) Lymph # (Auto) Mathews # (Auto) Eos # (Auto) Baso # (Auto) RBC Morphology Polychromasia Poikilocytosis Anisocytosis Percent Retic Haptoglobin PT INR APTT Sodium Potassium Chloride Carbon Dioxide BUN Creatinine Estimated GFR BUN/Creatinine Ratio Glucose Calcium Iron TIBC % Saturation Transferrin Total Bilirubin AST ALT Alkaline Phosphatase Lactate Dehydrogenase Total Creatine Kinase CK-MB (CK-2) CK-MB (CK-2) Rel Index Troponin I Total Protein Albumin Globulin Albumin/Globulin Ratio Vitamin B12 Folate Nasal Screen MRSA (PCR) Negative for mrsa SARS-CoV-2 (PCR) Negative Blood Type Antibody Screen Crossmatch 12/01/20 12/02/20 12/02/20 23:30 04:05 04:05 WBC 7.0 RBC 2.27 L Hgb 6.5 L* Hct 19.4 L* MCV 85.5 MCH 28.5 MCHC 33.4 RDW 16.1 H Plt Count 154 Neut % (Auto) 75.0 Lymph % (Auto) 12.6 L Mathews % (Auto) 11.5 Eos % (Auto) 0.4 L Baso % (Auto) 0.5 Neut # (Auto) 5200 Lymph # (Auto) 900 L Mathews # (Auto) 800 Eos # (Auto) 0 Baso # (Auto) 0 RBC Morphology See below Polychromasia 1+ H Poikilocytosis 1+ H Anisocytosis 1+ H Percent Retic Haptoglobin PT 19.2 H D INR 1.7 H APTT Sodium 143 Potassium 3.2 L Chloride 112 H Carbon Dioxide 28 BUN 37 H Creatinine 0.93 Estimated GFR > 60.0 BUN/Creatinine Ratio 39.8 H Glucose 83 Calcium 7.8 L Iron TIBC % Saturation Transferrin Total Bilirubin 1.4 H AST 25 ALT 19 Alkaline Phosphatase 56 Lactate Dehydrogenase Total Creatine Kinase CK-MB (CK-2) CK-MB (CK-2) Rel Index Troponin I Total Protein 4.3 L Albumin 2.3 L Globulin 2.0 Albumin/Globulin Ratio 1.2 Vitamin B12 Folate Nasal Screen MRSA (PCR) SARS-CoV-2 (PCR) Blood Type Antibody Screen Crossmatch 12/02/20 12/02/20 04:05 04:05 WBC RBC Hgb Hct MCV MCH MCHC RDW Plt Count Neut % (Auto) Lymph % (Auto) Mathews % (Auto) Eos % (Auto) Baso % (Auto) Neut # (Auto) Lymph # (Auto) Mathews # (Auto) Eos # (Auto) Baso # (Auto) RBC Morphology Polychromasia Poikilocytosis Anisocytosis Percent Retic Haptoglobin PT INR APTT Sodium 142 Potassium 2.7 L* Chloride 112 H Carbon Dioxide 27 BUN 33 H Creatinine 0.85 Estimated GFR > 60.0 BUN/Creatinine Ratio 38.8 H Glucose 93 Calcium 7.5 L Iron 172 D TIBC 256 L % Saturation 67 H D Transferrin 180 L Total Bilirubin AST ALT Alkaline Phosphatase Lactate Dehydrogenase Total Creatine Kinase CK-MB (CK-2) CK-MB (CK-2) Rel Index Troponin I Total Protein Albumin Globulin Albumin/Globulin Ratio Vitamin B12 Folate Nasal Screen MRSA (PCR) SARS-CoV-2 (PCR) Blood Type Antibody Screen Crossmatch Assessment & Plan Assessment & Plan narrative: When patient is able to tolerate bowel prep, colonoscopy and EGD with anesthesia is recommended. Is tentatively scheduled for 3pm tomorrow. COVID-19 COVID-19 status: Negative Time Spent With Patient Time with patient: 25 - 35 minutes
[2020-12-02 13:48] LABS: Add Manual Diff / Slide Review NO; Basophils Absolute Auto 0 /uL (0-100); Basophils Percent Auto 0.5 % (0-2); Eosinophils Absolute Auto 0 /uL (0-450); Eosinophils Percent Auto 0.6 % (2-4); Hematocrit 24.6 % (41-53); Hemoglobin 8.2 g/dL (13.5-17.5); Lymphocytes Absolute Auto 800 /uL (1100-4500); Lymphocytes Percent Auto 11.2 % (25-40); Mean Corpuscular HGB Conc 33.4 % (30-36); Mean Corpuscular Hemoglobin 28.6 PG (26-34); Mean Corpuscular Volume 85.5 fL (80-100); Monocytes Absolute Auto 700 /uL (0-900); Monocytes Percent Auto 10.1 % (3-14); Neutrophils Absolute Auto 5700 /uL (1500-7000); Neutrophils Percent Auto 77.6 % (50-75); Platelet Count 160 X10^3/uL (150-400); Red Blood Cell Count 2.88 X10^6/uL (4.5-5.9); Red Cell Distribution Width 16.1 % (11.6-14.8); White Blood Cell Count 7.4 X10^3/uL (4.5-11.0)
[2020-12-02 14:03] LABS: BUN Creatinine Ratio 31.5 (6-22); Blood Urea Nitrogen 28 mg/dL (9-20); Calcium 7.8 mg/dL (8.4-10.2); Carbon Dioxide 26 mmol/L (22-32); Chloride 114 mmol/L (98-107); Estimated Glomerular Filt Rate > 60.0 mL/min (>60); Glucose 96 mg/dL (80-110); HEMOLYSIS < 15 (0-50); Potassium 3.3 mmol/L (3.4-5.1); Sodium 143 mmol/L (137-145)
--- NOTE | 2020-12-02 16:51 | CM.DANOTE ---
Discharge Planning/Care Management CM Discharge Assessment Start: 12/02/20 16:50 Freq: Status: Active Protocol: Document 12/02/20 16:50 ITV (Rec: 12/02/20 16:51 ITV [id number]) Discharge Planning Assessment Advance Directives? No History Provided By Patient,Medical Record Prior Living Arrangements House Household Members spouse Independent with ADL's Yes Is patient alert and oriented? Yes DME Already Rented / Owned FWW / Walker Review Status In Process
--- NOTE | 2020-12-02 17:12 | CM.DANOTE ---
Discharge Planning/Care Management DCP: assessment: case received and discussed in Team Round. Dr. Babcock stated pt has admitted with a GI bleed and [facility] Dr. Rousseau was taking him to surgery for endoscopy and colonoscopy tomorrow. Met now with pt and introduced self and role.] Pt states that he feels much better and is thinking more clearly than when he admitted. He confirms she lives at home with is Breanna. He uses a FWW at baseline and has used [facility] in the recent past. He confirms his PCP as Shivani Morales/Ravindra Fay. Payer: [employer]. Admission status: INPT DCP team will follow as POC unfolds. Pt may well benefit from HH services again CM Discharge Assessment Start: 12/02/20 16:50 Freq: Status: Active Protocol: Document 12/02/20 16:50 ITV (Rec: 12/02/20 16:51 ITV [id number]) Discharge Planning Assessment Advance Directives? No History Provided By Patient,Medical Record Prior Living Arrangements House Household Members spouse Independent with ADL's Yes Is patient alert and oriented? Yes DME Already Rented / Owned FWW / Walker Review Status In Process
[2020-12-02] MEDS: PEG3350/SOD SULF,BICARB,CL/KCL 4,000 ML SOLUTION 4000 ML PO (17:16)
--- NOTE | 2020-12-02 18:19 | PM.PN.1 ---
Subjective Subjective Date Patient Seen: 12/02/20 Time Patient Seen: 08:19 Interval history: Today he feels much improved, he is much less confused after the transfusion. He did get 2U PRBC then had hypotension and hemoglobin still less than 7. So ordered 2U PRBC more. No evidence of overt bleeding. Exam Vital Signs (past 8 hours): - 12/02/20 12:00 12/02/20 15:00 12/02/20 16:00 Temperature 98.6 F 99.5 F Pulse Rate 47 L 53 L Respiratory Rate 18 14 Blood Pressure 145/68 H 120/57 L Pulse Oximetry 97 98 100 Oxygen Delivery Method Room Air Oxygen Flow Rate 0 Narrative Exam Narrative: GEN: chronically ill appearing, thin, confused HEENT: PERRL, moist mucous membranes, pale conjunctiva NECK: trachea midline, no JVD CV: RRR with 3/6 systolic ejection murmur PULM: clear bilaterally ABD: soft, nontender, nondistended, with no organomegaly EXT: warm and well perfused with no edema SKIN: no rashes noted NEURO: confused, moving all extremities PSYCH: pleasant, cooperative Objective Labs Result Diagrams: 12/02/20 13:40 12/02/20 13:40 Labs: Laboratory Results - last 24 hr 12/01/20 12/01/20 12/01/20 12:17 12:17 12:20 WBC RBC Hgb Hct MCV MCH MCHC RDW Plt Count Neut % (Auto) Lymph % (Auto) [place] % (Auto) Eos % (Auto) Baso % (Auto) Neut # (Auto) Lymph # (Auto) [place] # (Auto) Eos # (Auto) Baso # (Auto) RBC Morphology Polychromasia Poikilocytosis Anisocytosis Haptoglobin 159 PT INR Sodium Potassium Chloride Carbon Dioxide BUN Creatinine Estimated GFR BUN/Creatinine Ratio Glucose Calcium Iron TIBC % Saturation Transferrin Total Bilirubin AST ALT Alkaline Phosphatase Total Protein Albumin Globulin Albumin/Globulin Ratio Vitamin B12 303 Folate 7.3 Nasal Screen MRSA (PCR) Blood Type B Positive Antibody Screen Negative Crossmatch See Detail 12/01/20 12/01/20 12/01/20 15:25 23:30 23:30 WBC 6.8 RBC 2.07 L Hgb 6.0 L* Hct 17.8 L* MCV 86.0 MCH 29.2 MCHC 33.9 RDW 16.5 H Plt Count 170 Neut % (Auto) Lymph % (Auto) [place] % (Auto) Eos % (Auto) Baso % (Auto) Neut # (Auto) Lymph # (Auto) [place] # (Auto) Eos # (Auto) Baso # (Auto) RBC Morphology Polychromasia Poikilocytosis Anisocytosis Haptoglobin PT INR Sodium 143 Potassium 3.2 L Chloride 112 H Carbon Dioxide 28 BUN 37 H Creatinine 0.93 Estimated GFR > 60.0 BUN/Creatinine Ratio 39.8 H Glucose 83 Calcium 7.8 L Iron TIBC % Saturation Transferrin Total Bilirubin 1.4 H AST 25 ALT 19 Alkaline Phosphatase 56 Total Protein 4.3 L Albumin 2.3 L Globulin 2.0 Albumin/Globulin Ratio 1.2 Vitamin B12 Folate Nasal Screen MRSA (PCR) Negative for mrsa Blood Type Antibody Screen Crossmatch 12/02/20 12/02/20 12/02/20 04:05 04:05 04:05 WBC 7.0 RBC 2.27 L Hgb 6.5 L* Hct 19.4 L* MCV 85.5 MCH 28.5 MCHC 33.4 RDW 16.1 H Plt Count 154 Neut % (Auto) 75.0 Lymph % (Auto) 12.6 L Montgomery % (Auto) 11.5 Eos % (Auto) 0.4 L Baso % (Auto) 0.5 Neut # (Auto) 5200 Lymph # (Auto) 900 L Montgomery # (Auto) 800 Eos # (Auto) 0 Baso # (Auto) 0 RBC Morphology See below Polychromasia 1+ H Poikilocytosis 1+ H Anisocytosis 1+ H Haptoglobin PT 19.2 H D INR 1.7 H Sodium 142 Potassium 2.7 L* Chloride 112 H Carbon Dioxide 27 BUN 33 H Creatinine 0.85 Estimated GFR > 60.0 BUN/Creatinine Ratio 38.8 H Glucose 93 Calcium 7.5 L Iron TIBC % Saturation Transferrin Total Bilirubin AST ALT Alkaline Phosphatase Total Protein Albumin Globulin Albumin/Globulin Ratio Vitamin B12 Folate Nasal Screen MRSA (PCR) Blood Type Antibody Screen Crossmatch 12/02/20 12/02/20 12/02/20 04:05 13:40 13:40 WBC 7.4 RBC 2.88 L Hgb 8.2 L Hct 24.6 L MCV 85.5 MCH 28.6 MCHC 33.4 RDW 16.1 H Plt Count 160 Neut % (Auto) 77.6 H Lymph % (Auto) 11.2 L Montgomery % (Auto) 10.1 Eos % (Auto) 0.6 L Baso % (Auto) 0.5 Neut # (Auto) 5700 Lymph # (Auto) 800 L Montgomery # (Auto) 700 Eos # (Auto) 0 Baso # (Auto) 0 RBC Morphology Polychromasia Poikilocytosis Anisocytosis Haptoglobin PT INR Sodium 143 Potassium 3.3 L Chloride 114 H Carbon Dioxide 26 BUN 28 H Creatinine 0.89 Estimated GFR > 60.0 BUN/Creatinine Ratio 31.5 H Glucose 96 Calcium 7.8 L Iron 172 D TIBC 256 L % Saturation 67 H D Transferrin 180 L Total Bilirubin AST ALT Alkaline Phosphatase Total Protein Albumin Globulin Albumin/Globulin Ratio Vitamin B12 Folate Nasal Screen MRSA (PCR) Blood Type Antibody Screen Crossmatch [facility] Medical History Atrial fibrillation Atrial flutter Barretts esophagus CHF (congestive heart failure) Chronic cough Degenerative arthritis GERD (gastroesophageal reflux disease) History of cardioversion Iron deficiency anemia Spinal stenosis of lumbar region with neurogenic claudication Surgical History History of coronary angioplasty with insertion of stent Hx of cholecystectomy Hx of tonsillectomy Social History household members: spouse Smoking Status: Never smoker alcohol intake: never Assessment & Plan Assessment & Plan narrative: Mr. Pro is a 79M with unknown medical history on a blood thinner, uncertain which, who presents with confusion found to have hemoglobin of 4.9. 1. Anemia from GI bleeding, acute -patient currently hemodynamically stable with no tachycardia and normal blood pressure -has melenotic appearing stool, additionall elevated BUN consistent with possible upper GI bleed -will be NPO for possible EGD/colonoscopy tomorrow, will get prepped with go lytely -ordered for IV protonix -ordered for 2U PRBC, then recheck CBC after -check for other etiologies of anemia, check iron panel, b12/folate, retic count, haptoglobin -given vitamin k for elevated INR, improved from 3->1.7 2. Elevated INR -patient appears to possibly have atrial fibrillation based on telemetry -possibly on coumadin with elevated INR -will need to confirm medications 3. Systolic ejection murmur -ordered for ECHO to eval possible aortic stenosis 4. Atrial fibrillation, paroxysmal -holding xarelto for now -patient rate controlled currently -plan to restart amiodarone tomorrow 5. CAD -on atorvastatin and plavix -holding plavix given bleed -plan to restart if stable after scope 6. CHF with EF unknown -patient on entresto -ECHO ordered -not in acute CHF currently -try to keep volume euvolemic as has gotten significant blood products patient able to provide full med list now CODE: DNR, spouse Breanna is proxy DIET: NPO after midnight DVT ppx: SCDs
[2020-12-02] MEDS: SENNOSIDES 8.6 MG TABLET 17.2 MG PO (21:07)
--- NOTE | 2020-12-02 23:27 | PC.NURSE ---
Patient was started on go lightly prep for his colonoscopy tomorrow at 17:30 by the RN. I set up the bed side commode and walker next to the side of the bed and removed his SCD's in anticipation of him getting up quickly when the urge came on. I kept checking in on him and refilling his cup after he finished one, but he still did not have the urge to sit on the commode. At around 22:30 I decided to get him up out of bed and walk around the room a bit to get things moving and then have him sit on the commode for awhile. This did not work and I put him back to bed after a brief and complete bed change. I let the RN know of his lack of output up to that point.
[2020-12-03] VITALS (19 sets, daily range): BP systolic 118–161; BP diastolic 59–74; PULSE 54–63; RESP 12–20; TEMP 36.3–37.2; O2SAT 93–99; BMI 25.7
--- NOTE | 2020-12-03 01:11 | PC.NURSE ---
@0241 encouraged pt to have BM on BSC, pt unable to have BM, brief was soiled with urine only. Pt at time denied having urge to have BM. Encouraged pt to continue drinking GoLitely, cup filled at beginning of noc shift.
[2020-12-03 05:56] LABS: Add Manual Diff / Slide Review NO; Basophils Absolute Auto 0 /uL (0-100); Basophils Percent Auto 0.4 % (0-2); Eosinophils Absolute Auto 100 /uL (0-450); Eosinophils Percent Auto 1.7 % (2-4); Hematocrit 21.1 % (41-53); Hemoglobin 7.3 g/dL (13.5-17.5); Lymphocytes Absolute Auto 1000 /uL (1100-4500); Lymphocytes Percent Auto 16.9 % (25-40); Mean Corpuscular HGB Conc 34.7 % (30-36); Mean Corpuscular Hemoglobin 29.6 PG (26-34); Mean Corpuscular Volume 85.3 fL (80-100); Monocytes Absolute Auto 600 /uL (0-900); Monocytes Percent Auto 9.7 % (3-14); Neutrophils Absolute Auto 4100 /uL (1500-7000); Neutrophils Percent Auto 71.3 % (50-75); Platelet Count 153 X10^3/uL (150-400); Red Blood Cell Count 2.47 X10^6/uL (4.5-5.9); Red Cell Distribution Width 16.3 % (11.6-14.8); White Blood Cell Count 5.7 X10^3/uL (4.5-11.0)
[2020-12-03 05:57] LABS: HEMOLYSIS < 15 (0-50); Iron 11 ug/dL (49-181)
[2020-12-03 06:03] LABS: Alanine Aminotransferase 20 IU/L (<50); Albumin 2.2 g/dL (3.5-5.0); Alkaline Phosphatase 68 U/L (38-126); Aspartate Aminotransferase 32 IU/L (17-59); BUN Creatinine Ratio 30.3 (6-22); Bilirubin Total 0.5 mg/dL (0.2-1.3); Blood Urea Nitrogen 23 mg/dL (9-20); Calcium 7.3 mg/dL (8.4-10.2); Carbon Dioxide 27 mmol/L (22-32); Chloride 113 mmol/L (98-107); Estimated Glomerular Filt Rate > 60.0 mL/min (>60); Globulin 2.2 g/dL (1.7-4.1); Glucose 90 mg/dL (80-110); HEMOLYSIS < 15 (0-50); Magnesium 1.7 mg/dL (1.6-2.3); Potassium 2.8 mmol/L (3.4-5.1); Sodium 143 mmol/L (137-145); Total Protein 4.4 g/dL (6.3-8.2)
[2020-12-03 06:07] LABS: Percent Iron Saturation 4 % (20-50); Total Iron Binding Capacity 246 ug/dL (261-462); Transferrin 183 mg/dL (206-381)
--- NOTE | 2020-12-03 06:48 | PC.NURSE ---
[employer] Developer Note-Patient drank approximately 3/4 jug of Golytly by the begging of shift, then few sips afterward, NPO after MN, no BM until am, then had 1200ml loose dark tarry stool on BSC, denies pain, cramping, nausea, or lightheadedness. H/H 7.3/21.1, K+ 2.8 reported to SPEED [employer]NER.
[2020-12-03] MEDS: FERROUS SULFATE 325 MG TABLET PO ×3 (07:04→17:16)
[2020-12-03] MEDS: POTASSIUM CHLORIDE 20 MEQ/15 ML UDC 40 MEQ PO (07:04)
[2020-12-03] MEDS: POTASSIUM CHLORIDE 40 MEQ in SODIUM CHLORIDE 0.9% 500 ML 130 ML IV (07:08)
[2020-12-03] MEDS: PANTOPRAZOLE 40 MG VIAL IV ×2 (10:34→21:05)
[2020-12-03] MEDS: FUROSEMIDE 40 MG/4 ML VIAL IV (13:02)
[2020-12-03 13:52] LABS: Hematocrit 26.4 % (41-53)
[2020-12-03] MEDS: LACTATED RINGERS 1,000 ML 42 ML IV (15:30)
--- NOTE | 2020-12-03 15:48 | PM.PREOP ---
Pre-operative Note COVID-19 COVID-19 status: Negative Interval Note History & Physical reviewed/Exam performed by Physician: Yes Changes to H&P: No ASA Class (for procedural sedation): III
--- NOTE | 2020-12-03 15:54 | PC.NURSE ---
Unit of blood transfused without problems. See [facility] record. No sxs of transfusion reaction.
--- NOTE | 2020-12-03 16:18 | PM.OP.1 ---
Operative Date/Time/Diagnoses Date of procedure: 12/03/20 Time of procedure: 16:15 Pre-op diagnosis: iron diff anemia Post-op diagnosis: same Procedure & Clinicians Procedure: EGD Same procedure as scheduled: Yes Indications: profound anemia Surgeon: Sophie Rousseau Anesthesia Type: General Operative Notes Findings: gastric erosions of stomach. Moderate hiatal hernia Closure Type: not applicable Specimen(s): none sent Estimated Blood Loss (mL): 0 Blood products transfused: none Procedure in detail: Preop diagnosis: Iron-deficiency anemia Postop diagnosis: Same Operative procedure: EGD with general anesthetic and LMA Surgeon: Leighann Rousseau MD Anesthesiologists: Israel Tapia MD Findings: Moderate size hiatal hernia. Gastric erosions in the distal stomach. Duodenum within normal limits. No active bleeding. Procedure: Patient is placed in a lateral position. Scope was inserted into the esophagus advanced into the proximal stomach which represented a moderate size hiatal hernia. I then entered into the intra-abdominal stomach identified the pylorus and intubated into the duodenum. Insufflation and extractions scope including retroflex at the above findings. No active bleeding identified. Impression: Gastric erosions, no ulcers. No masses. Moderate size hiatal hernia Plan: Colonoscopy aborted due to inadequate bowel prep. Will reprep bowel and reschedule for tomorrow. Continue on PPI for gastric erosion. Continue to hold anticoagulation with regards to Plavix and Xarelto. Complications: none Post-operative Condition: stable Disposition: PACU Plan for aftercare: repre colon and colonoscopy with anesthesia tomorrow.
--- NOTE | 2020-12-03 16:57 | P.PN_ITS ---
Subjective Subjective Date Patient Seen: 12/03/20 Time Patient Seen: 07:57 Interval history: Today he feels unchanged from previously. Overnight he did have large amount of melena in stool. He did not feel dizzy, his pressure remained stable. He was ordered for transfusion. Exam Vital Signs (past 8 hours): - 12/03/20 09:09 12/03/20 09:24 12/03/20 09:30 Temperature 98.4 F 98.5 F 98.4 F Pulse Rate 56 L 55 L 61 Respiratory Rate 15 16 16 Blood Pressure 139/67 137/69 137/69 Pulse Oximetry 97 12/03/20 12:00 12/03/20 12:30 12/03/20 12:40 Temperature 97.9 F 97.8 F 97.8 F Pulse Rate 57 L 63 54 L Respiratory Rate 16 17 14 Blood Pressure 147/68 H 155/70 H 139/66 Pulse Oximetry 99 99 12/03/20 14:50 12/03/20 16:39 12/03/20 16:44 Temperature 97.8 F 98.9 F Pulse Rate 57 L 54 L 56 L Respiratory Rate 20 12 14 Blood Pressure 153/68 H 125/59 L 125/60 Pulse Oximetry 97 93 94 12/03/20 16:49 Temperature Pulse Rate 58 L Respiratory Rate 12 Blood Pressure 118/63 Pulse Oximetry 95 Oxygen Delivery Method Room Air Oxygen Flow Rate 0 Narrative Exam Narrative: GEN: chronically ill appearing, thin, confused HEENT: PERRL, moist mucous membranes, pale conjunctiva NECK: trachea midline, no JVD CV: RRR with 3/6 systolic ejection murmur PULM: clear bilaterally ABD: soft, nontender, nondistended, with no organomegaly EXT: warm and well perfused with no edema SKIN: no rashes noted NEURO: confused, moving all extremities PSYCH: pleasant, cooperative Objective Labs Result Diagrams: 12/03/20 13:45 12/03/20 05:30 Labs: Laboratory Results - last 24 hr 12/01/20 12/03/20 12/03/20 12:20 05:30 05:30 WBC 5.7 RBC 2.47 L Hgb 7.3 L Hct 21.1 L MCV 85.3 MCH 29.6 MCHC 34.7 RDW 16.3 H Plt Count 153 Neut % (Auto) 71.3 Lymph % (Auto) 16.9 L Real % (Auto) 9.7 Eos % (Auto) 1.7 L Baso % (Auto) 0.4 Neut # (Auto) 4100 Lymph # (Auto) 1000 L Real # (Auto) 600 Eos # (Auto) 100 Baso # (Auto) 0 Sodium Potassium Chloride Carbon Dioxide BUN Creatinine Estimated GFR BUN/Creatinine Ratio Glucose Calcium Magnesium Iron 11 L TIBC 246 L % Saturation 4 L Transferrin 183 L Total Bilirubin AST ALT Alkaline Phosphatase Total Protein Albumin Globulin Albumin/Globulin Ratio Blood Type B Positive Antibody Screen Negative Crossmatch See Detail 12/03/20 12/03/20 05:30 13:45 WBC RBC Hgb 9.0 L Hct 26.4 L MCV MCH MCHC RDW Plt Count Neut % (Auto) Lymph % (Auto) Real % (Auto) Eos % (Auto) Baso % (Auto) Neut # (Auto) Lymph # (Auto) Real # (Auto) Eos # (Auto) Baso # (Auto) Sodium 143 Potassium 2.8 L Chloride 113 H Carbon Dioxide 27 BUN 23 H Creatinine 0.76 Estimated GFR > 60.0 BUN/Creatinine Ratio 30.3 H Glucose 90 Calcium 7.3 L Magnesium 1.7 Iron TIBC % Saturation Transferrin Total Bilirubin 0.5 AST 32 ALT 20 Alkaline Phosphatase 68 Total Protein 4.4 L Albumin 2.2 L Globulin 2.2 Albumin/Globulin Ratio 1.0 Blood Type Antibody Screen Crossmatch [facility] Medical History Atrial fibrillation Atrial flutter Barretts esophagus CHF (congestive heart failure) Chronic cough Degenerative arthritis GERD (gastroesophageal reflux disease) History of cardioversion Iron deficiency anemia Spinal stenosis of lumbar region with neurogenic claudication Surgical History History of coronary angioplasty with insertion of stent Hx of cholecystectomy Hx of tonsillectomy Social History household members: spouse Smoking Status: Never smoker alcohol intake: never Assessment & Plan Assessment & Plan narrative: Mr. Pro is a 79M with unknown medical history on a blood thinner, uncertain which, who presents with confusion found to have hemoglobin of 4.9. 1. Anemia from GI bleeding, acute -patient currently hemodynamically stable with no tachycardia and normal blood pressure -has melenotic appearing stool, additionally elevated BUN consistent with possible upper GI bleed -will be NPO for possible EGD/colonoscopy today, prepped with go carlostecarlos -ordered for IV protonix BID -hemoglobin initially improved to 8.2, with additional bleeding dropped to 7.3, improved to 9.0 after transfusion -check for other etiologies of anemia, check iron panel, b12/folate, retic count, haptoglobin -given vitamin k for elevated INR, improved from 3->1.7 2. Elevated INR -patient appears to possibly have atrial fibrillation based on telemetry -was not on coumadin but was on rivaroxaban -INR improved after vitamin K 3. Systolic ejection murmur -ordered for ECHO to eval possible aortic stenosis 4. Atrial fibrillation, paroxysmal -holding xarelto for now -patient rate controlled currently -plan to restart amiodarone tomorrow 5. CAD -on atorvastatin and plavix -holding plavix given bleed -plan to restart if stable after scope 6. CHF with EF of 55-60% with preserved ejection fraction -patient on entresto -ECHO ordered showing mild aortic stenosis -not in acute CHF currently -try to keep volume euvolemic as has gotten significant blood products -ordered for a dose of lasix given significant blood transfusion patient able to provide full med list now CODE: DNR, spouse Breanna is proxy DIET: NPO after midnight DVT ppx: SCDs
[2020-12-03] MEDS: PEG3350/SOD SULF,BICARB,CL/KCL 4,000 ML SOLUTION 2000 ML PO (17:16)
--- NOTE | 2020-12-03 17:36 | PC.NURSE ---
Addendum entered by Lori López R.N. 12/03/20 19:43: Patient resting in bed, has mild confusion but has been calm and cooperative. No active bleeding noted at this time. Patient trying to drink golytly Original Note: Patient up from EGD/PACU at 1720. Patient Alert, calm and cooperative. Another dose of golytly ordered and started.
[2020-12-03 20:59] LABS: Hematocrit 28.1 % (41-53); Hemoglobin 9.4 g/dL (13.5-17.5); Mean Corpuscular HGB Conc 33.5 % (30-36); Mean Corpuscular Hemoglobin 28.7 PG (26-34); Mean Corpuscular Volume 85.8 fL (80-100); Platelet Count 174 X10^3/uL (150-400); Red Blood Cell Count 3.28 X10^6/uL (4.5-5.9); Red Cell Distribution Width 16.2 % (11.6-14.8); White Blood Cell Count 6.6 X10^3/uL (4.5-11.0)
[2020-12-03] MEDS: SODIUM CHLORIDE 0.9% FLUSH 10 ML IV (21:05)
[2020-12-03 21:12] LABS: BUN Creatinine Ratio 19.5 (6-22); Blood Urea Nitrogen 17 mg/dL (9-20); Calcium 7.9 mg/dL (8.4-10.2); Carbon Dioxide 31 mmol/L (22-32); Chloride 108 mmol/L (98-107); Estimated Glomerular Filt Rate > 60.0 mL/min (>60); Glucose 80 mg/dL (80-110); HEMOLYSIS < 15 (0-50); Sodium 145 mmol/L (137-145)
[2020-12-04] VITALS (10 sets, daily range): BP systolic 122–151; BP diastolic 60–72; PULSE 54–83; RESP 14–20; TEMP 36.3–36.9; O2SAT 93–100
[2020-12-04 05:47] LABS: Add Manual Diff / Slide Review NO; Basophils Absolute Auto 0 /uL (0-100); Basophils Percent Auto 0.8 % (0-2); Eosinophils Absolute Auto 200 /uL (0-450); Eosinophils Percent Auto 3.6 % (2-4); Hematocrit 27.7 % (41-53); Hemoglobin 9.3 g/dL (13.5-17.5); Lymphocytes Absolute Auto 800 /uL (1100-4500); Lymphocytes Percent Auto 13.5 % (25-40); Mean Corpuscular HGB Conc 33.6 % (30-36); Mean Corpuscular Hemoglobin 29.2 PG (26-34); Mean Corpuscular Volume 86.8 fL (80-100); Monocytes Absolute Auto 600 /uL (0-900); Monocytes Percent Auto 10.5 % (3-14); Neutrophils Absolute Auto 4000 /uL (1500-7000); Neutrophils Percent Auto 71.6 % (50-75); Platelet Count 172 X10^3/uL (150-400); Red Blood Cell Count 3.19 X10^6/uL (4.5-5.9); Red Cell Distribution Width 15.9 % (11.6-14.8); White Blood Cell Count 5.6 X10^3/uL (4.5-11.0)
[2020-12-04 05:51] LABS: HEMOLYSIS < 15 (0-50); Iron 21 ug/dL (49-181)
[2020-12-04 05:54] LABS: Alanine Aminotransferase 24 IU/L (<50); Albumin 2.6 g/dL (3.5-5.0); Alkaline Phosphatase 89 U/L (38-126); Aspartate Aminotransferase 39 IU/L (17-59); BUN Creatinine Ratio 19.8 (6-22); Blood Urea Nitrogen 16 mg/dL (9-20); Calcium 7.7 mg/dL (8.4-10.2); Carbon Dioxide 32 mmol/L (22-32); Chloride 106 mmol/L (98-107); Estimated Glomerular Filt Rate > 60.0 mL/min (>60); Globulin 2.5 g/dL (1.7-4.1); Glucose 80 mg/dL (80-110); HEMOLYSIS < 15 (0-50); Magnesium 1.6 mg/dL (1.6-2.3); Sodium 144 mmol/L (137-145); Total Protein 5.1 g/dL (6.3-8.2)
[2020-12-04 06:01] LABS: Percent Iron Saturation 8 % (20-50); Total Iron Binding Capacity 268 ug/dL (261-462); Transferrin 204 mg/dL (206-381)
[2020-12-04 06:05] LABS: Potassium 2.4 mmol/L (3.4-5.1)
--- NOTE | 2020-12-04 06:10 | PC.NURSE ---
0600- K+ reported to be 2.4 this am. Patient rhythm has not been adversley affected. ALEKSANDR Segovia notified. Will monitor.
[2020-12-04] MEDS: POTASSIUM CHLORIDE IN WATER 10 MEQ/100 ML PIGGYBACK 100 MEQ IV ×4 (07:24→10:52)
[2020-12-04] MEDS: MAGNESIUM SULFATE 4 GM/100 ML PIGGYBACK IV (07:24)
[2020-12-04] MEDS: SODIUM CHLORIDE 0.9% FLUSH 10 ML IV ×2 (08:03→20:07)
[2020-12-04] MEDS: PANTOPRAZOLE 40 MG VIAL IV ×2 (08:03→20:07)
[2020-12-04] MEDS: POTASSIUM CHLORIDE 20 MEQ/15 ML UDC 40 MEQ PO ×3 (08:03→19:19)
--- NOTE | 2020-12-04 11:58 | CM.DPC ---
Addendum entered by Meenakshi Patterson R.N. 12/04/20 15:21: Sara at [facility] called back and confirmed that she received the referral. Addendum entered by Meenakshi Patterson R.N. 12/04/20 12:30: Went ahead and sent over face sheet, and H&P to [facility]. Updated Sara in admissions, and stated, they are familiar with patient, they had just discharged him in October. She indicated, they should not need a new auth for the [employer]. Let her know that case management will update her if patient is discharged today, and will get a face to face signed. Confirmed that electronic fax went through. Original Note: DCP Cont: Patient's , Breanna, had called [employer] phone and left a message. Nat, [employer], indicated that the message indicated that she would like patient to have [facility], for he had it before. At this time, is unclear as to what services that he would need. Would focus on nursing due to his GI bleed. In the message she also wanted to know about [facility] benefits. Can also order [employer] as an additional discipline to discuss with patient and . Attempted to reach . Her phone is listed as [phone], but voice mail is full. Can attempt to reach out again later. Patient is having a procedure today. According to team rounds, he could potentially be medically ready for discharge. Will start working on face to face. P: DCP to continue to follow. Will work on face to face for [facility]. Meenakshi Patterson RN/Economics Teacher
--- NOTE | 2020-12-04 12:28 | PM.PN.1 ---
Exam Vital Signs (past 8 hours): - 12/04/20 05:00 12/04/20 07:15 12/04/20 07:30 Temperature 97.3 F L Pulse Rate 55 L Respiratory Rate 18 Blood Pressure 122/61 Pulse Oximetry 93 100 98 12/04/20 09:00 Temperature 97.9 F Pulse Rate 60 Respiratory Rate 20 Blood Pressure 151/70 H Pulse Oximetry 99 Oxygen Delivery Method Room Air Oxygen Flow Rate 0 Objective Labs Result Diagrams: 12/04/20 05:20 12/04/20 05:20 Labs: Laboratory Results - last 24 hr 12/01/20 12/03/20 12/03/20 12:20 13:45 20:48 WBC 6.6 RBC 3.28 L Hgb 9.0 L 9.4 L Hct 26.4 L 28.1 L MCV 85.8 MCH 28.7 MCHC 33.5 RDW 16.2 H Plt Count 174 Neut % (Auto) Lymph % (Auto) [place] % (Auto) Eos % (Auto) Baso % (Auto) Neut # (Auto) Lymph # (Auto) [place] # (Auto) Eos # (Auto) Baso # (Auto) Sodium Potassium Chloride Carbon Dioxide BUN Creatinine Estimated GFR BUN/Creatinine Ratio Glucose Calcium Magnesium Iron TIBC % Saturation Transferrin Total Bilirubin AST ALT Alkaline Phosphatase Total Protein Albumin Globulin Albumin/Globulin Ratio Blood Type B Positive Antibody Screen Negative Crossmatch See Detail 12/03/20 12/04/20 12/04/20 20:48 05:20 05:20 WBC 5.6 RBC 3.19 L Hgb 9.3 L Hct 27.7 L MCV 86.8 MCH 29.2 MCHC 33.6 RDW 15.9 H Plt Count 172 Neut % (Auto) 71.6 Lymph % (Auto) 13.5 L [place] % (Auto) 10.5 Eos % (Auto) 3.6 Baso % (Auto) 0.8 Neut # (Auto) 4000 Lymph # (Auto) 800 L [place] # (Auto) 600 Eos # (Auto) 200 Baso # (Auto) 0 Sodium 145 144 Potassium 3.0 L 2.4 L* Chloride 108 H 106 Carbon Dioxide 31 32 BUN 17 16 Creatinine 0.87 0.81 Estimated GFR > 60.0 > 60.0 BUN/Creatinine Ratio 19.5 19.8 Glucose 80 80 Calcium 7.9 L 7.7 L Magnesium 1.6 Iron TIBC % Saturation Transferrin Total Bilirubin 1.0 AST 39 ALT 24 Alkaline Phosphatase 89 Total Protein 5.1 L Albumin 2.6 L Globulin 2.5 Albumin/Globulin Ratio 1.0 Blood Type Antibody Screen Crossmatch 12/04/20 05:20 WBC RBC Hgb Hct MCV MCH MCHC RDW Plt Count Neut % (Auto) Lymph % (Auto) [place]ardo % (Auto) Eos % (Auto) Baso % (Auto) Neut # (Auto) Lymph # (Auto) [place] # (Auto) Eos # (Auto) Baso # (Auto) Sodium Potassium Chloride Carbon Dioxide BUN Creatinine Estimated GFR BUN/Creatinine Ratio Glucose Calcium Magnesium Iron 21 L TIBC 268 % Saturation 8 L Transferrin 204 L Total Bilirubin AST ALT Alkaline Phosphatase Total Protein Albumin Globulin Albumin/Globulin Ratio Blood Type Antibody Screen Crossmatch [facility] Medical History Atrial fibrillation Atrial flutter Barretts esophagus CHF (congestive heart failure) Chronic cough Degenerative arthritis GERD (gastroesophageal reflux disease) History of cardioversion Iron deficiency anemia Spinal stenosis of lumbar region with neurogenic claudication Surgical History History of coronary angioplasty with insertion of stent Hx of cholecystectomy Hx of tonsillectomy Social History household members: spouse Smoking Status: Never smoker alcohol intake: never Assessment & Plan Assessment & Plan narrative: bowel content still not clear. Electrolytes to severe for anesthesia. continue clear liquid. No further bowel prep and re evaluate in am.
[2020-12-04 12:29] LABS: HEMOLYSIS < 15 (0-50); Potassium 3.3 mmol/L (3.4-5.1)
[2020-12-04] MEDS: FERROUS SULFATE 325 MG TABLET PO ×2 (13:24→16:46)
--- NOTE | 2020-12-04 14:00 | PC.NURSE ---
Day Shift Note Pt alert and oriented x3. On 2L NC on AM assessment with SpO2 100%. Weaned to RA and SpO2 has remained in the 98-99% range. SB/SR with 1st deg. AVB and BBB on tele, no ectopy noted at this time. Received 40 meq IV KCL and 40 meq PO KCl, K on lab recheck was 3.3 - reported to MD and order received for additional 40 meq KCl PO. Pt's stools are loose and watery but still black/dark brown. This was reported to Dr. Rousseau via [employer] and decision made to postpone colonscopy until tomorrow. Pt on clear liquids and to be NPO at midnight. Call light within reach, using appropriately to make needs known. Bed alarm is on.
--- NOTE | 2020-12-04 16:53 | P.PN_ITS ---
Subjective Subjective Date Patient Seen: 12/04/20 Time Patient Seen: 07:53 Interval history: This morning he feels well. He has had multiple bowel movements overnight. This morning his potassium is low at 2.4, so colonoscopy is cancelled. He is getting potassium repletion. Exam Vital Signs (past 8 hours): - 12/04/20 09:00 12/04/20 12:00 12/04/20 15:00 Temperature 97.9 F 98.1 F Pulse Rate 60 55 L Respiratory Rate 20 19 Blood Pressure 151/70 H 150/72 H Pulse Oximetry 99 99 97 12/04/20 16:00 Temperature 98.5 F Pulse Rate 54 L Respiratory Rate 20 Blood Pressure 129/60 Pulse Oximetry 97 Oxygen Delivery Method Room Air Oxygen Flow Rate 0 Narrative Exam Narrative: EN: chronically ill appearing, thin, confused HEENT: PERRL, moist mucous membranes, pale conjunctiva NECK: trachea midline, no JVD CV: RRR with 3/6 systolic ejection murmur PULM: clear bilaterally ABD: soft, nontender, nondistended, with no organomegaly EXT: warm and well perfused with no edema SKIN: no rashes noted NEURO: confused, moving all extremities PSYCH: pleasant, cooperative Objective Labs Result Diagrams: 12/04/20 05:20 12/04/20 12:10 Labs: Laboratory Results - last 24 hr 12/03/20 12/03/20 12/04/20 20:48 20:48 05:20 WBC 6.6 5.6 RBC 3.28 L 3.19 L Hgb 9.4 L 9.3 L Hct 28.1 L 27.7 L MCV 85.8 86.8 MCH 28.7 29.2 MCHC 33.5 33.6 RDW 16.2 H 15.9 H Plt Count 174 172 Neut % (Auto) 71.6 Lymph % (Auto) 13.5 L [place]row % (Auto) 10.5 Eos % (Auto) 3.6 Baso % (Auto) 0.8 Neut # (Auto) 4000 Lymph # (Auto) 800 L [place] # (Auto) 600 Eos # (Auto) 200 Baso # (Auto) 0 Sodium 145 Potassium 3.0 L Chloride 108 H Carbon Dioxide 31 BUN 17 Creatinine 0.87 Estimated GFR > 60.0 BUN/Creatinine Ratio 19.5 Glucose 80 Calcium 7.9 L Magnesium Iron TIBC % Saturation Transferrin Total Bilirubin AST ALT Alkaline Phosphatase Total Protein Albumin Globulin Albumin/Globulin Ratio 12/04/20 12/04/20 12/04/20 05:20 05:20 12:10 WBC RBC Hgb Hct MCV MCH MCHC RDW Plt Count Neut % (Auto) Lymph % (Auto) [place] % (Auto) Eos % (Auto) Baso % (Auto) Neut # (Auto) Lymph # (Auto) [place] # (Auto) Eos # (Auto) Baso # (Auto) Sodium 144 Potassium 2.4 L* 3.3 L Chloride 106 Carbon Dioxide 32 BUN 16 Creatinine 0.81 Estimated GFR > 60.0 BUN/Creatinine Ratio 19.8 Glucose 80 Calcium 7.7 L Magnesium 1.6 Iron 21 L TIBC 268 % Saturation 8 L Transferrin 204 L Total Bilirubin 1.0 AST 39 ALT 24 Alkaline Phosphatase 89 Total Protein 5.1 L Albumin 2.6 L Globulin 2.5 Albumin/Globulin Ratio 1.0 PFSH Medical History Atrial fibrillation Atrial flutter Barretts esophagus CHF (congestive heart failure) Chronic cough Degenerative arthritis GERD (gastroesophageal reflux disease) History of cardioversion Iron deficiency anemia Spinal stenosis of lumbar region with neurogenic claudication Surgical History History of coronary angioplasty with insertion of stent Hx of cholecystectomy Hx of tonsillectomy Social History household members: spouse Smoking Status: Never smoker alcohol intake: never Assessment & Plan Assessment & Plan narrative: Mr. Pro is a 79M with unknown medical history on a blood thinner, rivaroxaban and plavix, who presents with confusion found to yun ve hemoglobin of 4.9. 1. Anemia from GI bleeding, acute -patient currently hemodynamically stable with no tachycardia and normal blood pressure -has melenotic appearing stool, additionally elevated BUN consistent with possible upper GI bleed -will be NPO for possible colonoscopy tomorrow, prepped with go carlostecarlos, could not go 12/04 due to hypokalemia -ordered for IV protonix BID -hemoglobin initially improved to 8.2, with additional bleeding dropped to 7.3, improved to 9.0 after transfusion -has had 5U total PRBC -iron panel shows low iron, will need to be on medication on DC -given vitamin k for elevated INR, improved from 3->1.7 2. Elevated INR -patient appears to possibly have atrial fibrillation based on telemetry -was not on coumadin but was on rivaroxaban -INR improved after vitamin K 3. Systolic ejection murmur -ordered for ECHO which showed mild aortic stenosis with TURNER 1.5 4. Atrial fibrillation, paroxysmal -holding xarelto for now -patient rate controlled currently -plan to restart amiodarone tomorrow -if patient stable on 12/05 and no further bleeding plan to restart anti coagulation then 5. CAD -on atorvastatin and plavix -holding plavix given bleed -plan to restart if stable after scope 6. CHF with EF of 55-60% with preserved ejection fraction -patient on entresto -ECHO ordered showing mild aortic stenosis -not in acute CHF currently -try to keep volume euvolemic as has gotten significant blood products -ordered for a dose of lasix given significant blood transfusion patient able to provide full med list now CODE: DNR, spouse Breanna is proxy DIET: NPO after midnight DVT ppx: SCDs
[2020-12-04 19:06] LABS: UR Morphine/Opiate cutoff 300 Negative (Negative); Ur Creatinine Normal (Normal); Ur Specific Gravity Normal (Normal); Urine Amphetamines Negative (Negative); Urine Barbiturates Negative (Negative); Urine Benzodiazepines Negative (Negative); Urine Cocaine Negative (Negative); Urine MDMA Negative (Negative); Urine Methadone Negative (Negative); Urine Methamphetamines Negative (Negative); Urine Oxycodone Negative (Negative); Urine Phencyclidine Negative (Negative); Urine Tetrahydrocannabinol Negative (Negative); Urine Tricyclic Antidepressant Negative (Negative); Urine pH Normal (Normal)
[2020-12-04] MEDS: SENNOSIDES 8.6 MG TABLET 17.2 MG PO (20:07)
[2020-12-04 21:28] LABS: Add Manual Diff / Slide Review NO; Basophils Absolute Auto 100 /uL (0-100); Basophils Percent Auto 1.1 % (0-2); Eosinophils Absolute Auto 200 /uL (0-450); Eosinophils Percent Auto 3.2 % (2-4); Hematocrit 26.6 % (41-53); Hemoglobin 8.8 g/dL (13.5-17.5); Lymphocytes Absolute Auto 800 /uL (1100-4500); Mean Corpuscular HGB Conc 33.2 % (30-36); Mean Corpuscular Hemoglobin 28.8 PG (26-34); Mean Corpuscular Volume 86.7 fL (80-100); Monocytes Absolute Auto 600 /uL (0-900); Monocytes Percent Auto 10.6 % (3-14); Neutrophils Absolute Auto 3900 /uL (1500-7000); Neutrophils Percent Auto 70.1 % (50-75); Platelet Count 167 X10^3/uL (150-400); Red Blood Cell Count 3.07 X10^6/uL (4.5-5.9); Red Cell Distribution Width 15.9 % (11.6-14.8); White Blood Cell Count 5.6 X10^3/uL (4.5-11.0)
[2020-12-04 21:44] LABS: Alanine Aminotransferase 23 IU/L (<50); Albumin 2.6 g/dL (3.5-5.0); Albumin Globulin Ratio 1.1 (1.0-2.8); Alkaline Phosphatase 83 U/L (38-126); Aspartate Aminotransferase 34 IU/L (17-59); BUN Creatinine Ratio 20.5 (6-22); Bilirubin Total 0.7 mg/dL (0.2-1.3); Blood Urea Nitrogen 16 mg/dL (9-20); Calcium 7.6 mg/dL (8.4-10.2); Carbon Dioxide 30 mmol/L (22-32); Chloride 106 mmol/L (98-107); Estimated Glomerular Filt Rate > 60.0 mL/min (>60); Globulin 2.3 g/dL (1.7-4.1); Glucose 92 mg/dL (80-110); HEMOLYSIS 17 (0-50); Magnesium 2.2 mg/dL (1.6-2.3); Sodium 138 mmol/L (137-145); Total Protein 4.9 g/dL (6.3-8.2)
[2020-12-05] VITALS (10 sets, daily range): BP systolic 107–157; BP diastolic 55–80; PULSE 47–60; RESP 14–22; TEMP 36.6–36.8; O2SAT 91–99; BMI 23.8
[2020-12-05 05:58] LABS: Add Manual Diff / Slide Review NO; Basophils Absolute Auto 0 /uL (0-100); Basophils Percent Auto 0.5 % (0-2); Eosinophils Absolute Auto 300 /uL (0-450); Eosinophils Percent Auto 6.3 % (2-4); Hematocrit 26.9 % (41-53); Hemoglobin 8.8 g/dL (13.5-17.5); Lymphocytes Absolute Auto 900 /uL (1100-4500); Lymphocytes Percent Auto 17.3 % (25-40); Mean Corpuscular HGB Conc 32.9 % (30-36); Mean Corpuscular Hemoglobin 28.6 PG (26-34); Mean Corpuscular Volume 87.1 fL (80-100); Monocytes Absolute Auto 600 /uL (0-900); Monocytes Percent Auto 11.6 % (3-14); Neutrophils Absolute Auto 3400 /uL (1500-7000); Neutrophils Percent Auto 64.3 % (50-75); Platelet Count 165 X10^3/uL (150-400); Red Blood Cell Count 3.09 X10^6/uL (4.5-5.9); Red Cell Distribution Width 16.2 % (11.6-14.8); White Blood Cell Count 5.2 X10^3/uL (4.5-11.0)
[2020-12-05 06:15] LABS: Alanine Aminotransferase 22 IU/L (<50); Albumin 2.5 g/dL (3.5-5.0); Alkaline Phosphatase 92 U/L (38-126); Aspartate Aminotransferase 31 IU/L (17-59); Bilirubin Total 0.9 mg/dL (0.2-1.3); Blood Urea Nitrogen 13 mg/dL (9-20); Carbon Dioxide 31 mmol/L (22-32); Chloride 105 mmol/L (98-107); Estimated Glomerular Filt Rate > 60.0 mL/min (>60); Globulin 2.4 g/dL (1.7-4.1); Glucose 89 mg/dL (80-110); HEMOLYSIS < 15 (0-50); Potassium 3.2 mmol/L (3.4-5.1); Sodium 137 mmol/L (137-145); Total Protein 4.9 g/dL (6.3-8.2)
[2020-12-05] MEDS: POTASSIUM CHLORIDE IN WATER 10 MEQ/100 ML PIGGYBACK 100 MEQ IV ×4 (06:38→11:03)
--- NOTE | 2020-12-05 10:00 | P.DS_ITS ---
History of Present Illness History of Present Illness Chief complaint: weakness Narrative: Mr. Pro is a 79M who comes in with altered mental status. History is difficult to obtain from patient and . He is on a blood thinner, neither is sure which one. He says it is for a cardiac condition. And it appears he is atrial fibrillation here, with an elevated INR of 3.0, but they can not confirm he has afib or is on coumadin. Patient presented with weakness and confusion that started this morning. He denies any falls, nausea, vomting, diarrhea, pain. No shortness of breath. He had no black or tarry stools. No vomiting blood. He did not have weakness, dizziness. He does not remember when last colonoscopy was. In the ER he was noted to have normal vital signs. Labs notable for hemoglobin of 4.9, INR 3.0, potassium 3.2, creatinine 1.02, BUN 40. He was noted to have melenotic appearing, guaiac positive stools. He was ordered for trasnfusion of blood. He was ordered for IV vitamin K, and IV protonix. Surgery was consulted for EGD. He was admitted for further treatment. Discharge Providers Provider Date of admission: 12/01/20 14:17 Discharge Date: 12/05/20 Consults: 12/01/20 12:53 Consult to General Surgery Stat Comment: Consulting Provider: Sophie Rousseau Reason for consultation: Upper GI Bleed Has provider been notified: Yes 12/05/20 14:12 Consult to Home Health Routine Comment: Reason For Exam: Home Health Upon DC Discharge provider: Raymond Babcock MD Summary Hospital Course Discharge Diagnosis: 1. Anemia from GI bleeding 2. Elevated INR 3. Mild aortic stenosis 4. Atrial fibrillation, paroxysmal 5. CAD 6. CHF with preserved EF of 55-60% 7. Hypokalemia Hospital Course: Mr. Pro was admitted with acute anemia from likely upper GI bleeding. He was noted to have episodes in the hospital with significant blood in his stool. He in total required 5 units PRBC to improve his hemoglobin from 4.9 to 8.8 on discharge. He had iron deficiency noted and was recommended to increase his iron dose. He underwent EGD which showed no active bleed, but did show gastric erosions. He was recommended to stay on his PPI. Initially his afib and plavix were held but all this medications were restarted upon DC. Of note he was found to have a systolic ejection murmur on exam, and his ECHO shows mild aortic stenosis with TURNER of 1.5. He was attempted to have colonoscopy multiple times; however, his prep did not completely clear him out, and as his bleeding had stopped, it was decided he could discharge and follow up with Dr. Rousseau in a month for repeat colonoscopy. He did have severe hypokalemia in response to using golytely as bowel prep. Exam Vital Signs (past 8 hours): Oxygen Delivery Method Room Air Oxygen Flow Rate 0 Narrative Exam Narrative: GEN: chronically ill appearing, thin, confused HEENT: PERRL, moist mucous membranes, pale conjunctiva NECK: trachea midline, no JVD CV: RRR with 3/6 systolic ejection murmur PULM: clear bilaterally ABD: soft, nontender, nondistended, with no organomegaly EXT: warm and well perfused with no edema SKIN: no rashes noted NEURO: confused, moving all extremities PSYCH: pleasant, cooperative Objective Labs Result Diagrams: 12/05/20 05:20 12/05/20 05:20 Labs: Laboratory Results - last 24 hr 12/01/20 12/05/20 12/05/20 12:20 05:20 05:20 WBC 5.2 RBC 3.09 L Hgb 8.8 L Hct 26.9 L MCV 87.1 MCH 28.6 MCHC 32.9 RDW 16.2 H Plt Count 165 Neut % (Auto) 64.3 Lymph % (Auto) 17.3 L Ritchie % (Auto) 11.6 Eos % (Auto) 6.3 H Baso % (Auto) 0.5 Neut # (Auto) 3400 Lymph # (Auto) 900 L Ritchie # (Auto) 600 Eos # (Auto) 300 Baso # (Auto) 0 Sodium 137 Potassium 3.2 L Chloride 105 Carbon Dioxide 31 BUN 13 Creatinine 0.81 Estimated GFR > 60.0 BUN/Creatinine Ratio 16.0 Glucose 89 Calcium 8.0 L Magnesium 2.0 Total Bilirubin 0.9 AST 31 ALT 22 Alkaline Phosphatase 92 Total Protein 4.9 L Albumin 2.5 L Globulin 2.4 Albumin/Globulin Ratio 1.0 Crossmatch See Detail [facility] Medical History Atrial fibrillation Atrial flutter Barretts esophagus CHF (congestive heart failure) Chronic cough Degenerative arthritis GERD (gastroesophageal reflux disease) History of cardioversion Iron deficiency anemia Spinal stenosis of lumbar region with neurogenic claudication Surgical History History of coronary angioplasty with insertion of stent Hx of cholecystectomy Hx of tonsillectomy Social History household members: spouse Smoking Status: Never smoker alcohol intake: never Discharge Plan Discharge Plan Patient Disposition: Home Provider Discharge Comment: Mr. Pro was admitted with low blood counts. He was found to have gastrointestinal bleeding. He needed a total of 5 units of blood transfusion. He initially came in with hemoglobin in the 4s, improved to 8.8 on day of discharge. He still has slight anemia, but his iron counts are low. He should take his iron pill twice a day to help his iron level, which helps increase blood counts. He can restart his eliquis and plavix. He should be on protonix daily because he had irritation of the stomach on his endoscopy, and this medicine helps reduce acid so he can heal. His colonoscopy showed no significant problems. He should follow up with his PCP and Dr. Rousseau in a month for a repeat scope. Discharge orders & Medications Prescriptions: New pantoprazole [Protonix] 40 mg tablet,delayed release (DR/EC) 40 mg PO DAILY Qty: 30 RF: 0 Continued atorvastatin 40 mg Tablet 40 mg PO DAILY RF: 0 amiodarone 200 mg Tablet 200 mg PO BID RF: 0 metoprolol succinate 50 mg Tablet Extended Release 24 Hr 50 mg PO BID RF: 0 clopidogrel 75 mg Tablet 75 mg PO DAILY RF: 0 omeprazole 20 mg Capsule,Delayed Release(Dr/Ec) 40 mg PO DAILY RF: 0 Xarelto 20 mg Tablet 20 mg PO DAILY RF: 0 Entresto 49-51 mg Tablet 0.5 tab PO BID RF: 0 magnesium oxide 400 mg magnesium Tablet 400 mg PO DAILY RF: 0 Changed ferrous sulfate 325 mg (65 mg iron) Tablet 325 mg PO BID Qty: 0 RF: 0 Diet/Activity/Treatments Diet: Diet as Tolerated Visit Report/Discharge Packet Instructions: DI for Blood Transfusion, DI for Colonoscopy, DI for Gastrointestinal Bleeding, EGD Discharge Instructions Quality MIPS - DC The patient has current or prior documentation of left ventricular ejection fraction (LVEF) less than 40%, or moderate or severely depressed left v entricular systolic function.: No
[2020-12-05] MEDS: SODIUM CHLORIDE 0.9% FLUSH 10 ML IV (10:12)
[2020-12-05] MEDS: PANTOPRAZOLE 40 MG VIAL IV (10:12)
--- NOTE | 2020-12-05 11:27 | CM.DPC ---
DCP: case received, EMR for last few days reviewed. Discussed in Team Rounds. Pt is NPO and colonoscopy planned for today after being postponed for last 2 days. P: at this time, plan remains home with spouse and [facility]. DCP team will be following.
--- NOTE | 2020-12-05 11:53 | PC.NURSE ---
pt left at this time for planned colonoscopy- npo status maintained and just prior to [employer] arrival pt had incont episode of both bowel and bladder- which evidenced greenish stool-
[2020-12-05] MEDS: LACTATED RINGERS 1,000 ML 42 ML IV (12:30)
--- NOTE | 2020-12-05 13:13 | PM.PREOP ---
Pre-operative Note COVID-19 COVID-19 status: Negative Interval Note History & Physical reviewed/Exam performed by Physician: Yes Changes to H&P: No ASA Class (for procedural sedation): III
--- NOTE | 2020-12-05 14:17 | CM.DPNOTE ---
Faxed Face to Face, brody albarran faxed order to [facility] on 12/05/20. Fax confirmation received. Minerva Maher CM Asst.
--- NOTE | 2020-12-05 14:22 | CM.DPNOTE ---
DCP Note Patient expected to DC this afternoon if colonoscopy shows no significant findings. Faxed HH order to [facility], JAMIR Palma will fax completed and signed F2F. Still need DC Summary faxed when available. Sara valverde aware of patient's expected DC Plan: DC home w/spouse to assist and [facility] to provide RN/PT/OT/SCHEDULER CONVEYOR JW
--- NOTE | 2020-12-05 15:11 | PC.NURSE ---
pt returned from pacu with no evidence of active bleeding and thus far vitals are stable- discharge pending
--- NOTE | 2020-12-05 16:00 | PC.NURSE ---
Discharge instructions given to patient, new medications explained, current meds discussed including risk of bleeding. Pt acknowledges receipt and understanding. Snack provided prior to pt leaving.
== END 2020-12-05 16:53 | disposition home health service (06) | DRG 378 ==
LOC: ED 14:07 → AC 14:25 → ICU 14:40 → AC 12-10 11:28 → ICU 12-10 11:28
PROVIDERS: Nurse Practitioner Family; Surgery; Admitting Provider Internal Medicine; Emergency Provider Emergency Medicine; Referring Provider Emergency Medicine; Visit Provider Internal Medicine
PROC: 0DJ08ZZ Inspection of Upper Intestinal Tract, Via Natural or Artificial Opening Endoscopic (ICD-10-PCS; CPT 43235; principal; 2020-12-03 16:00)
PROC: 0DJD8ZZ Inspection of Lower Intestinal Tract, Via Natural or Artificial Opening Endoscopic (ICD-10-PCS; CPT 45378; 2020-12-03 16:00)
PROC: 0DJD8ZZ Inspection of Lower Intestinal Tract, Via Natural or Artificial Opening Endoscopic (ICD-10-PCS; CPT 45378; principal; 2020-12-05 12:15)
DX: K25.4 Chronic or unspecified gastric ulcer with hemorrhage (principal); D62 Acute posthemorrhagic anemia; I50.30 Unspecified diastolic (congestive) heart failure; R41.0 Disorientation, unspecified; I48.0 Paroxysmal atrial fibrillation; Z79.01 Long term (current) use of anticoagulants; E87.6 Hypokalemia; Z20.822 Contact with and (suspected) exposure to COVID-19; Z66 Do not resuscitate; I95.9 Hypotension, unspecified; R01.1 Cardiac murmur, unspecified; R79.1 Abnormal coagulation profile
CPT/HCPCS: 36415; 36430; 43235; 70450; 71045; 80048; 80053; 80305; 82272; 82550; 82607; 82746; 83010; 83540; 83550; 83615; 83735; 84132; 84484; 85014; 85018; 85025; 85027; 85045; 85610; 85730; 86850; 86900; 86901; 87635; 87797; 93005; 93010; 93306; 99221; 99283; 99284; C9803; P9016; C9113; J1940; J2250; J2704; J3010; J3430; J3475; J3480

== ENCOUNTER → 2021-01-02 09:10 | Outpatient (CLI) | payer MEDICARE, SELFPAY ==
[2020-12-01 21:56] VITALS: BMI 25.2
[2021-01-02] MEDS: COVID-19 VACC #2, MRNA(MOD) 100 MCG/0.5 ML VIAL IM (09:15)
== END ==
PROVIDERS: PCP Family Medicine; Visit Provider Internal Medicine
DX: Z23 Encounter for immunization (principal)
CPT/HCPCS: 0012A; 91301

== ENCOUNTER 2021-01-06 15:28 | Emergency (ER) | payer OTHER, SELFPAY ==
[2020-12-01 21:56] VITALS: BMI 25.2
[2021-01-06 15:46] VITALS: BP 115/58; PULSE 54; RESP 16; TEMP 37.1; O2SAT 99; BMI 23.0
[2021-01-06 16:20] LABS: Add Manual Diff / Slide Review NO; Basophils Absolute Auto 100 /uL (0-100); Basophils Percent Auto 0.8 % (0-2); Eosinophils Absolute Auto 600 /uL (0-450); Eosinophils Percent Auto 7.6 % (2-4); Hematocrit 36.1 % (41-53); Hemoglobin 11.5 g/dL (13.5-17.5); Lymphocytes Absolute Auto 1200 /uL (1100-4500); Mean Corpuscular HGB Conc 31.9 % (30-36); Mean Corpuscular Hemoglobin 26.9 PG (26-34); Mean Corpuscular Volume 84.2 fL (80-100); Monocytes Absolute Auto 800 /uL (0-900); Monocytes Percent Auto 10.5 % (3-14); Neutrophils Absolute Auto 4900 /uL (1500-7000); Neutrophils Percent Auto 65.1 % (50-75); Platelet Count 199 X10^3/uL (150-400); Red Blood Cell Count 4.29 X10^6/uL (4.5-5.9); Red Cell Distribution Width 16.2 % (11.6-14.8); White Blood Cell Count 7.4 X10^3/uL (4.5-11.0)
[2021-01-06 16:31] LABS: Alanine Aminotransferase 33 IU/L (<50); Albumin 3.3 g/dL (3.5-5.0); Albumin Globulin Ratio 1.1 (1.0-2.8); Alkaline Phosphatase 112 U/L (38-126); Aspartate Aminotransferase 34 IU/L (17-59); BUN Creatinine Ratio 23.3 (6-22); Bilirubin Total 0.5 mg/dL (0.2-1.3); Blood Urea Nitrogen 27 mg/dL (9-20); Calcium 8.6 mg/dL (8.4-10.2); Carbon Dioxide 26 mmol/L (22-32); Chloride 106 mmol/L (98-107); Estimated Glomerular Filt Rate > 60.0 mL/min (>60); Globulin 3.1 g/dL (1.7-4.1); Glucose 76 mg/dL (80-110); HEMOLYSIS < 15 (0-50); Sodium 137 mmol/L (137-145); Total Protein 6.4 g/dL (6.3-8.2)
[2021-01-06 17:07] VITALS: PULSE 48; RESP 15; O2SAT 99
[2021-01-06 17:10] VITALS: BP 127/64; PULSE 47; RESP 18; O2SAT 99
[2021-01-06 17:30] VITALS: BP 132/62; PULSE 46; RESP 19; O2SAT 96
[2021-01-06 18:00] VITALS: BP 147/65; PULSE 47; RESP 17; O2SAT 99
[2021-01-06 18:30] VITALS: BP 143/67; PULSE 46; RESP 17; O2SAT 99
--- NOTE | 2021-01-06 18:32 | ED_ITS ---
HPI - GI Bleed General Chief complaint: GI Bleed Stated complaint: sent by MD for GI bleed Time Seen by Provider: 01/06/21 18:10 Source: patient Mode of arrival: Ambulatory Limitations: no limitations History of Present Illness HPI Narrative: The patient presents for concern for GI bleed. He was admitted at this facility last month, received transfusion of multiple units of PRBCs. He is on Xarelto for AFib. He is in a home health situation. Apparently his blood pressure was 81 systolic at home earlier today, caregivers were concerned about a recurrent GI bleed. The patient says he has no abdominal discomfort. He has not noticed melena or bright red blood. His appetite is normal. He feels fatigued, but notes he just had the 2nd COVID-19 immunization. He denies recent illness. He is normotensive upon arrival, has no chest pain or dyspnea. He does not feel ill. Related Data Home Medications Medication Instructions Recorded Confirmed Entresto 0.5 tab PO BID 12/02/20 12/02/20 Xarelto 20 mg PO DAILY 12/02/20 12/02/20 amiodarone 200 mg PO BID 12/02/20 12/02/20 atorvastatin 40 mg PO DAILY 12/02/20 12/02/20 clopidogrel 75 mg PO DAILY 12/02/20 12/02/20 magnesium oxide 400 mg PO DAILY 12/02/20 12/02/20 metoprolol succinate 50 mg PO BID 12/02/20 12/02/20 omeprazole 40 mg PO DAILY 12/02/20 12/02/20 Previous Rx's Medication Instructions Recorded ferrous sulfate 325 mg PO BID #0 tab 12/05/20 pantoprazole [Protonix] 40 mg PO DAILY #30 tab 12/05/20 Allergies Allergy/AdvReac Type Severity Reaction Status Date / Time No Known Drug Allergies Allergy Verified 12/01/20 12:12 Review of Systems Constitutional Constitutional: Denies body ache(s), Denies chills, Reports fatigue and Denies fever(s) Eyes Eyes: Denies change in vision ENT Ears, Nose, Mouth, and Throat: Denies dizziness and Denies sore throat Cardiovascular Cardiovascular: Denies chest pain, Denies syncope, Denies rapid heart rate, Denies pedal edema, Denies lightheadedness and Denies dyspnea Respiratory Respiratory: Denies cough, Denies dyspnea and Denies wheezing Gastrointestinal Gastrointestinal: Denies abdominal pain, Denies melena, Denies hematochezia, Denies change in bowel habits, Denies diarrhea, Denies nausea and Denies vomiting Genitourinary Comments: No urinary complaints. Musculoskeletal Musculoskeletal: Denies back pain and Denies myalgias Integumentary/Breasts Skin/Breast: Denies pruritus, Denies erythema, Denies rash and Denies wounds Neurologic Neurologic: Denies dizziness and Denies syncope Psychiatric Psychiatric: Denies anxiety Endocrine Endocrine: Reports fatigue Allergic/Immunologic Allergic/Immunologic: Denies wheezing Patient History Medical History Atrial fibrillation Atrial flutter Barretts esophagus CHF (congestive heart failure) Chronic cough Degenerative arthritis GERD (gastroesophageal reflux disease) GI bleed History of cardioversion Iron deficiency anemia Spinal stenosis of lumbar region with neurogenic claudication Surgical History History of coronary angioplasty with insertion of stent Hx of cholecystectomy Hx of tonsillectomy Social History household members: spouse Smoking Status: Never smoker alcohol intake: never Smoking Status: Never smoker Substance Use Type: does not use Exam Initial Vital Signs Initial Vital Signs: Vital Signs Temperature 98.7 F 01/06/21 15:46 Pulse Rate 54 L 01/06/21 15:46 Respiratory Rate 16 01/06/21 15:46 Blood Pressure 115/58 L 01/06/21 15:46 Pulse Oximetry 99 01/06/21 15:46 Const General: cooperative, comfortable, well developed, well groomed and No anxious HENMT Mouth: oral mucosae normal Eyes Conjunctivae: conjunctivae normal Sclera: sclerae normal Neck Other: No JVD Resp Auscultation: clear to auscultation bilaterally Cardio Other: Irregular, regular rhythm. No murmur. GI Palpation: soft and No tender Auscultation: normal bowel sounds Other: The patient has 4+ BPH, no palpable prostate masses. Normal rectal tone. Stool was guaiac negative. Back/Spine/Pelvis Back: normal to inspection and No back tenderness Skin General: no rashes or lesions noted, No jaundice and No petechiae Extrem General: No edema Course Course Course Narrative: The patient is normotensive since arrival. He has no palpitations, chest pain or dyspnea. He has no GI complaints. His H/H is stable, he is guaiac negative. Orders Ordered: ED Orders 01/06/21 15:52 EKG-12 Lead Stat 01/06/21 16:05 Complete Blood Count AUTO DIFF Stat Comprehensive Metabolic Panel Stat Vital Signs Vital signs: Vital Signs - 8 hr 01/06/21 15:46 01/06/21 17:07 01/06/21 17:10 Temperature 98.7 F Pulse Rate 54 L 48 L 47 L Respiratory Rate 16 15 18 Blood Pressure 115/58 L 127/64 Pulse Oximetry 99 99 99 01/06/21 17:30 01/06/21 18:00 01/06/21 18:30 Temperature Pulse Rate 46 L 47 L 46 L Respiratory Rate 19 17 17 Blood Pressure 132/62 147/65 H 143/67 H Pulse Oximetry 96 99 99 MDM - GI Bleed Lab Data Result diagrams: 01/06/21 16:05 01/06/21 16:05 Labs: Lab Results 01/06/21 01/06/21 Range/Units 16:05 16:05 WBC 7.4 (4.5-11.0) X10^3/uL RBC 4.29 L (4.5-5.9) X10^6/uL Hgb 11.5 L (13.5-17.5) g/dL Hct 36.1 L (41-53) % MCV 84.2 (80-100) fL MCH 26.9 (26-34) PG MCHC 31.9 (30-36) % RDW 16.2 H (11.6-14.8) % Plt Count 199 (150-400) X10^3/uL Neut % (Auto) 65.1 (50-75) % Lymph % (Auto) 16.0 L (25-40) % [place] % (Auto) 10.5 (3-14) % Eos % (Auto) 7.6 H (2-4) % Baso % (Auto) 0.8 (0-2) % Neut # (Auto) 4900 (8872-9040) /uL Lymph # (Auto) 1200 (8790-1903) /uL [place] # (Auto) 800 (0-900) /uL Eos # (Auto) 600 H (0-450) /uL Baso # (Auto) 100 (0-100) /uL Sodium 137 (137-145) mmol/L Potassium 4.0 (3.4-5.1) mmol/L Chloride 106 (98-107) mmol/L Carbon Dioxide 26 (22-32) mmol/L BUN 27 H (9-20) mg/dL Creatinine 1.16 (0.66-1.25) mg/dL Estimated GFR > 60.0 (>60) mL/min BUN/Creatinine Ratio 23.3 H (6-22) Glucose 76 L (80-110) mg/dL Calcium 8.6 (8.4-10.2) mg/dL Total Bilirubin 0.5 (0.2-1.3) mg/dL AST 34 (17-59) IU/L ALT 33 (<50) IU/L Alkaline Phosphatase 112 (38-126) U/L Total Protein 6.4 (6.3-8.2) g/dL Albumin 3.3 L (3.5-5.0) g/dL Globulin 3.1 (1.7-4.1) g/dL Albumin/Globulin Ratio 1.1 (1.0-2.8) ECG Data Attestation: I personally reviewed and interpreted this ECG as follows: (Junctional rhythm rate 48 beats per minute. Normal intervals. No ectopy. No acute ST T wave changes.) Discharge Plan Departure Patient Disposition: Home Clinical Impression: Fatigue Qualifiers: Fatigue type: unspecified Qualified Code(s): R53.83 - Other fatigue Instructions: Gastrointestinal Bleeding Activity Restrictions/Additional Instructions: You have no evidence of current GI bleed. Your blood counts are stable. Continue current medications. Plan to follow-up with your doctor in the next week or so to recheck your current clinical concerns. Prescriptions: No Action atorvastatin 40 mg Tablet 40 mg PO DAILY RF: 0 amiodarone 200 mg Tablet 200 mg PO BID RF: 0 metoprolol succinate 50 mg Tablet Extended Release 24 Hr 50 mg PO BID RF: 0 clopidogrel 75 mg Tablet 75 mg PO DAILY RF: 0 omeprazole 20 mg Capsule,Delayed Release(Dr/Ec) 40 mg PO DAILY RF: 0 Xarelto 20 mg Tablet 20 mg PO DAILY RF: 0 Entresto 49-51 mg Tablet 0.5 tab PO BID RF: 0 magnesium oxide 400 mg magnesium Tablet 400 mg PO DAILY RF: 0 ferrous sulfate 325 mg (65 mg iron) Tablet 325 mg PO BID Qty: 0 RF: 0 pantoprazole [Protonix] 40 mg tablet,delayed release (DR/EC) 40 mg PO DAILY Qty: 30 RF: 0 Referrals: Honey Campbell MD [Primary Care Provider] -
== END 2021-01-06 18:54 | disposition home or self-care (01) ==
PROVIDERS: Emergency Medicine; Emergency Provider Emergency Medicine; PCP Family Medicine
DX: R53.83 Other fatigue (principal); K92.2 Gastrointestinal hemorrhage, unspecified
CPT/HCPCS: 36415; 80053; 85025; 93005; 93010; 99283; 99284

== ENCOUNTER 2021-01-27 15:25 | Emergency (ER) | payer OTHER, SELFPAY ==
[2020-12-01 21:56] VITALS: BMI 25.2
[2021-01-27 15:52] VITALS: BP 160/87; PULSE 60; RESP 22; TEMP 36.9; O2SAT 96
--- NOTE | 2021-01-27 15:55 | DI.RAD.S_ITS ---
PROCEDURE: XR CHEST 1V INDICATIONS: chest pain TECHNIQUE: One view of the chest was acquired. COMPARISON: [facility], CR, XR CHEST 1V, 12/01/2020, 12:18. FINDINGS: Surgical changes and devices: None. Lungs and pleura: Lungs are clear. No pleural effusions or pneumothorax. Mediastinum: Mediastinal contours appear normal. Heart size is normal. Bones and chest wall: No suspicious bony lesions. Overlying soft tissues appear unremarkable. IMPRESSION: No acute pulmonary process. Dictated by: Berenice Lawrence M.D. on 01/27/2021 at 16:29 Approved by: Berenice Lawrence M.D. on 01/27/2021 at 16:29
[2021-01-27 16:24] LABS: Add Manual Diff / Slide Review NO; Basophils Absolute Auto 100 /uL (0-100); Basophils Percent Auto 0.9 % (0-2); Eosinophils Absolute Auto 200 /uL (0-450); Eosinophils Percent Auto 2.3 % (2-4); Hematocrit 43.6 % (41-53); Lymphocytes Absolute Auto 900 /uL (1100-4500); Lymphocytes Percent Auto 12.7 % (25-40); Mean Corpuscular HGB Conc 32.2 % (30-36); Mean Corpuscular Hemoglobin 26.7 PG (26-34); Mean Corpuscular Volume 82.8 fL (80-100); Monocytes Absolute Auto 600 /uL (0-900); Monocytes Percent Auto 8.4 % (3-14); Neutrophils Absolute Auto 5400 /uL (1500-7000); Neutrophils Percent Auto 75.7 % (50-75); Platelet Count 321 X10^3/uL (150-400); Red Blood Cell Count 5.26 X10^6/uL (4.5-5.9); Red Cell Distribution Width 15.9 % (11.6-14.8); White Blood Cell Count 7.2 X10^3/uL (4.5-11.0)
[2021-01-27 16:29] LABS: Alanine Aminotransferase 189 IU/L (<50); Albumin 3.8 g/dL (3.5-5.0); Alkaline Phosphatase 160 U/L (38-126); Aspartate Aminotransferase 134 IU/L (17-59); Bilirubin Total 0.8 mg/dL (0.2-1.3); Blood Urea Nitrogen 26 mg/dL (9-20); Calcium 9.2 mg/dL (8.4-10.2); Carbon Dioxide 29 mmol/L (22-32); Chloride 104 mmol/L (98-107); Creatine Kinase 76 U/L (55-170); Estimated Glomerular Filt Rate > 60.0 mL/min (>60); Globulin 3.7 g/dL (1.7-4.1); Glucose 107 mg/dL (80-110); HEMOLYSIS 48 (0-50); Lipase 27 U/L (23-300); Magnesium 1.9 mg/dL (1.6-2.3); Potassium 4.3 mmol/L (3.4-5.1); Sodium 140 mmol/L (137-145); Total Protein 7.5 g/dL (6.3-8.2)
[2021-01-27 16:40] LABS: NT-proBNP (BNP-Adult 18+) 1330 pg/mL (<450); Troponin I < 0.012 ng/mL (0.01-0.034)
[2021-01-27 22:39] VITALS: PULSE 52
[2021-01-27 22:41] VITALS: BP 120/68; PULSE 52; RESP 23; O2SAT 96
[2021-01-27 23:00] VITALS: BP 131/70; PULSE 51; RESP 35; O2SAT 92
[2021-01-27 23:01] LABS: Creatine Kinase 69 U/L (55-170)
--- NOTE | 2021-01-27 23:04 | ED_ITS ---
HPI - General Adult General Chief complaint: Shortness of Breath/Dyspnea Stated complaint: wheezing, thinks pneumonia Time Seen by Provider: 01/27/21 22:30 Source: patient and family Mode of arrival: Ambulatory History of Present Illness HPI narrative: Patient is a 80-year-old male who was brought in for evaluation by private vehicle of wheezing and coughing. He states the symptoms been going on for the past couple days. He has no prior underlying lung issues. States he is being treated for heart failure. He does not wear oxygen at home. His home health nurse stated that she thought that she was wheezing and he has been fatigued for the past couple days so there was concern about pneumonia. He is coughing up some sputum. Denies any chest pain. He denies any shortness of breath. Related Data Home Medications Medication Instructions Recorded Confirmed amiodarone 200 mg tablet 200 mg PO BID 12/02/20 12/02/20 atorvastatin 40 mg tablet 40 mg PO DAILY 12/02/20 12/02/20 clopidogrel 75 mg tablet 75 mg PO DAILY 12/02/20 12/02/20 magnesium oxide 400 mg PO DAILY 12/02/20 12/02/20 metoprolol succinate 50 mg 50 mg PO BID 12/02/20 12/02/20 tablet,extended release 24 hr omeprazole 20 mg capsule,delayed 40 mg PO DAILY 12/02/20 12/02/20 release rivaroxaban 20 mg tablet (Xarelto) 20 mg PO DAILY 12/02/20 12/02/20 sacubitril 49 mg-valsartan 51 mg 0.5 tab PO BID 12/02/20 12/02/20 tablet (Entresto) Previous Rx's Medication Instructions Recorded ferrous sulfate 325 mg (65 mg 325 mg PO BID #0 tab 12/05/20 iron) tablet pantoprazole 40 mg tablet,delayed 40 mg PO DAILY #30 tab 12/05/20 release (Protonix) prednisone 20 mg tablet 40 mg PO DAILY 2 Days #4 tab 01/28/21 Allergies Allergy/AdvReac Type Severity Reaction Status Date / Time No Known Drug Allergies Allergy Verified 12/01/20 12:12 Review of Systems Constitutional Constitutional: Denies fever(s) Eyes Eyes: Reports system reviewed and no additional complaints, except as documented ENT Ears, Nose, Mouth, and Throat: Reports system reviewed and no additional complaints, except as documented Cardiovascular Cardiovascular: Denies chest pain and Denies dyspnea Respiratory Respiratory: Reports cough, Denies dyspnea and Reports wheezing Gastrointestinal Gastrointestinal: Reports system reviewed and no additional complaints, except as documented Genitourinary Genitourinary: Reports system reviewed and no additional complaints, except as documented Integumentary/Breasts Skin/Breast: Reports system reviewed and no additional complaints, except as documented Neurologic Neurologic: Reports system reviewed and no additional complaints, except as documented Psychiatric Psychiatric: Reports system reviewed and no additional complaints, except as documented Endocrine Endocrine: Reports system reviewed and no additional complaints, except as documented Hematologic/Lymphatic On Anticoagulants: Yes Allergic/Immunologic Allergic/Immunologic: Reports wheezing Patient History Medical History Atrial fibrillation Atrial flutter Barretts esophagus CHF (congestive heart failure) Chronic cough Degenerative arthritis GERD (gastroesophageal reflux disease) GI bleed History of cardioversion Iron deficiency anemia Spinal stenosis of lumbar region with neurogenic claudication Surgical History History of coronary angioplasty with insertion of stent Hx of cholecystectomy Hx of tonsillectomy Social History household members: spouse Smoking Status: Never smoker alcohol intake: never Smoking Status: Never smoker Substance Use Type: does not use Exam Initial Vital Signs Initial Vital Signs: Vital Signs Temperature 98.5 F 01/27/21 15:52 Pulse Rate 60 01/27/21 15:52 Respiratory Rate 22 01/27/21 15:52 Blood Pressure 160/87 H 01/27/21 15:52 Pulse Oximetry 96 01/27/21 15:52 [facility] Head: normal to inspection Eyes General: appearance normal, both eyes and all related structures Chest Chest: normal inspection of the chest Resp Effort & Inspection: not labored and tachypneic Auscultation: wheezes Cardio Rate: regular rate GI Inspection: normal to inspection Skin General: no rashes or lesions noted Neuro General: patient alert, patient awake and patient oriented x3 Extrem General: normal to inspection Psych Appearance: grossly normal and well kempt Course Orders Ordered: ED Orders 01/27/21 22:45 Troponin & CK Cardiac Panel Stat 01/27/21 23:15 COVID19 -Nasal swab/Pre-Proc Stat Discontinued Medications Albuterol (Albuterol 2.5 Mg/3 Ml Neb (Adult)) 2.5 mg INH NOW ONE Stop: 01/27/21 23:04 Last Admin: 01/27/21 23:45 Dose: 2.5 mg Documented by: SULEMA Albuterol (Albuterol Hfa Mdi 60 Puff/8 Gm Inhaler) 2 puff INH NOW ONE Stop: 01/28/21 00:09 Last Admin: 01/28/21 00:24 Dose: 2 puff Documented by: SULEMA Prednisone (Prednisone 20 Mg Tablet) 40 mg PO NOW ONE Stop: 01/28/21 00:10 Last Admin: 01/28/21 00:20 Dose: 40 mg Documented by: MARY Vital Signs Vital signs: Vital Signs - 8 hr 01/27/21 22:39 01/27/21 22:41 01/27/21 23:00 Pulse Rate 52 L 52 L 51 L Respiratory Rate 23 35 H Blood Pressure 120/68 131/70 Pulse Oximetry 96 92 01/27/21 23:30 01/27/21 23:45 01/28/21 00:00 Pulse Rate 49 L 47 L 48 L Respiratory Rate 22 15 21 Blood Pressure 117/66 121/69 Pulse Oximetry 93 93 96 01/28/21 00:24 01/28/21 00:30 01/28/21 01:00 Pulse Rate 50 L 52 L 51 L Respiratory Rate 15 Blood Pressure 167/83 H Pulse Oximetry 93 94 93 01/28/21 01:01 01/28/21 01:30 01/28/21 02:00 Pulse Rate 50 L 57 L 49 L Respiratory Rate 22 Blood Pressure 150/76 H Pulse Oximetry 93 88 L 79 L Medical Decision Making Medical Records Medical records reviewed: Yes I reviewed the patient's medical records. Lab Data Lab results reviewed: Yes I reviewed the patient's lab results. Result diagrams: 01/27/21 16:05 01/27/21 16:05 Labs: Lab Results 01/27/21 01/27/21 01/27/21 Range/Units 16:05 16:05 22:45 WBC 7.2 (4.5-11.0) X10^3/uL RBC 5.26 (4.5-5.9) X10^6/uL Hgb 14.0 (13.5-17.5) g/dL Hct 43.6 (41-53) % MCV 82.8 (80-100) fL MCH 26.7 (26-34) PG MCHC 32.2 (30-36) % RDW 15.9 H (11.6-14.8) % Plt Count 321 (150-400) X10^3/uL Neut % (Auto) 75.7 H (50-75) % Lymph % (Auto) 12.7 L (25-40) % [place] % (Auto) 8.4 (3-14) % Eos % (Auto) 2.3 (2-4) % Baso % (Auto) 0.9 (0-2) % Neut # (Auto) 5400 (4353-9753) /uL Lymph # (Auto) 900 L (4077-6501) /uL [place] # (Auto) 600 (0-900) /uL Eos # (Auto) 200 (0-450) /uL Baso # (Auto) 100 (0-100) /uL Sodium 140 (137-145) mmol/L Potassium 4.3 (3.4-5.1) mmol/L Chloride 104 (98-107) mmol/L Carbon Dioxide 29 (22-32) mmol/L BUN 26 H (9-20) mg/dL Creatinine 1.04 (0.66-1.25) mg/dL Estimated GFR > 60.0 (>60) mL/min BUN/Creatinine Ratio 25.0 H (6-22) Glucose 107 (80-110) mg/dL Calcium 9.2 (8.4-10.2) mg/dL Magnesium 1.9 (1.6-2.3) mg/dL Total Bilirubin 0.8 (0.2-1.3) mg/dL AST 134 H (17-59) IU/L ALT 189 H (<50) IU/L Alkaline Phosphatase 160 H (38-126) U/L Total Creatine Kinase 76 69 (55-170) U/L CK-MB (CK-2) TNP TNP CK-MB (CK-2) Rel Index TNP TNP Troponin I < 0.012 < 0.012 (0.01-0.034) ng/mL NT-Pro-B Natriuret Pep 1330 H (<450) pg/mL Total Protein 7.5 (6.3-8.2) g/dL Albumin 3.8 (3.5-5.0) g/dL Globulin 3.7 (1.7-4.1) g/dL Albumin/Globulin Ratio 1.0 (1.0-2.8) Lipase 27 (23-300) U/L SARS-CoV-2 (PCR) (Negative) 01/27/21 Range/Units 23:15 WBC (4.5-11.0) X10^3/uL RBC (4.5-5.9) X10^6/uL Hgb (13.5-17.5) g/dL Hct (41-53) % MCV (80-100) fL MCH (26-34) PG MCHC (30-36) % RDW (11.6-14.8) % Plt Count (150-400) X10^3/uL Neut % (Auto) (50-75) % Lymph % (Auto) (25-40) % [place] % (Auto) (3-14) % Eos % (Auto) (2-4) % Baso % (Auto) (0-2) % Neut # (Auto) (7499-2545) /uL Lymph # (Auto) (1009-0233) /uL [place] # (Auto) (0-900) /uL Eos # (Auto) (0-450) /uL Baso # (Auto) (0-100) /uL Sodium (137-145) mmol/L Potassium (3.4-5.1) mmol/L Chloride (98-107) mmol/L Carbon Dioxide (22-32) mmol/L BUN (9-20) mg/dL Creatinine (0.66-1.25) mg/dL Estimated GFR (>60) mL/min BUN/Creatinine Ratio (6-22) Glucose (80-110) mg/dL Calcium (8.4-10.2) mg/dL Magnesium (1.6-2.3) mg/dL Total Bilirubin (0.2-1.3) mg/dL AST (17-59) IU/L ALT (<50) IU/L Alkaline Phosphatase (38-126) U/L Total Creatine Kinase (55-170) U/L CK-MB (CK-2) CK-MB (CK-2) Rel Index Troponin I (0.01-0.034) ng/mL NT-Pro-B Natriuret Pep (<450) pg/mL Total Protein (6.3-8.2) g/dL Albumin (3.5-5.0) g/dL Globulin (1.7-4.1) g/dL Albumin/Globulin Ratio (1.0-2.8) Lipase (23-300) U/L SARS-CoV-2 (PCR) Negative (Negative) Imaging Data Chest x-ray: Radiologist's Impression: [address] [id number] ReportSigned Patient: Federico Pro JMR#: [id number]: 2Acct:[id number]/Sex: 80 / MDate of Service: 01/27/21Loc: EDAccession Number: [id number] Procedure: XR chest 1V Ordering Provider: Katina Ocasio D.O. PROCEDURE: XR CHEST 1V INDICATIONS: chest pain TECHNIQUE: One view of the chest was acquired. COMPARISON: Located Within [facility], , XR CHEST 1V, 12/01/2020, 12:18. FINDINGS: Surgical changes and devices: None. Lungs and pleura: Lungs are clear. No pleural effusions or pneumothorax. Mediastinum: Mediastinal contours appear normal. Heart size is normal. Bones and chest wall: No suspicious bony lesions. Overlying soft tissues appear unremarkable. IMPRESSION: No acute pulmonary process. Dictated by: Berenice Lawrence M.D. on 01/27/2021 at 16:29 Approved by: Berenice Lawrence M.D. on 01/27/2021 at 16:29 ECG Data Attestation: I personally reviewed and interpreted this ECG as follows: Interpretation: Sinus bradycardia Ventricular rate of 52 Normal axis Normal QRS Normal QTC No ST T wave changes MDM Narrative Medical decision making narrative: Patient's chest x-ray shows no signs of pneumonia. He is not clinically in heart failure. He does have bilateral wheezing. He did receive a nebulizer which potentially helped his symptoms a small amount. He is afebrile. No indication for antibiotics. He was given a dose of steroids. Also send him home with an albuterol inhaler. EKG shows sinus rhythm. He was given strict return precautions and follow-up instructions. He expressed understanding agreement. Discharge Plan Departure Patient Disposition: Home Clinical Impression: Wheezing Instructions: Cough Activity Restrictions/Additional Instructions: Recommend that you start using the albuterol inhaler every 4 hours while your awake for the next 3 days. After that you can use it as needed. Start taking the prednisone as directed. Contact your primary provider for follow-up. Return to the emergency department for any new or worsening symptoms Prescriptions: New prednisone 20 mg tablet 40 mg PO DAILY 2 Days Qty: 4 RF: 0 No Action atorvastatin 40 mg Tablet 40 mg PO DAILY RF: 0 amiodarone 200 mg Tablet 200 mg PO BID RF: 0 metoprolol succinate 50 mg Tablet Extended Release 24 Hr 50 mg PO BID RF: 0 clopidogrel 75 mg Tablet 75 mg PO DAILY RF: 0 omeprazole 20 mg Capsule,Delayed Release(Dr/Ec) 40 mg PO DAILY RF: 0 Xarelto 20 mg Tablet 20 mg PO DAILY RF: 0 Entresto 49-51 mg Tablet 0.5 tab PO BID RF: 0 magnesium oxide 400 mg magnesium Tablet 400 mg PO DAILY RF: 0 ferrous sulfate 325 mg (65 mg iron) Tablet 325 mg PO BID Qty: 0 RF: 0 pantoprazole [Protonix] 40 mg tablet,delayed release (DR/EC) 40 mg PO DAILY Qty: 30 RF: 0 Referrals: Honey Campbell MD [Primary Care Provider] -
[2021-01-27 23:14] LABS: Troponin I < 0.012 ng/mL (0.01-0.034)
[2021-01-27 23:30] VITALS: BP 117/66; PULSE 49; RESP 22; O2SAT 93
[2021-01-27 23:35] LABS: COVID19 -Nasal RAPID Negative (Negative)
[2021-01-27 23:45] VITALS: PULSE 47; RESP 15; O2SAT 93
[2021-01-27] MEDS: ALBUTEROL 2.5 MG/3 ML NEB (ADULT) INH (23:45)
[2021-01-28] VITALS (14 sets, daily range): BP systolic 121–167; BP diastolic 60–83; PULSE 47–57; RESP 15–22; O2SAT 90–96
[2021-01-28] MEDS: predniSONE 20 MG TABLET 40 MG PO (00:20)
[2021-01-28] MEDS: ALBUTEROL HFA MDI 60 PUFF/8 GM INHALER INH (00:24)
--- NOTE | 2021-01-28 02:39 | PC.NURSE ---
His pulse ox was not on fhis finger correctly and when repositioned his 02 saturation on ra was in the 90's.
--- NOTE | 2021-01-28 03:34 | PC.NURSE ---
His o2 sat dropped to 89 and he was placed on 2liters nasal cannula,he was asleep when sat dropped.
== END 2021-01-28 06:25 | disposition home or self-care (01) ==
PROVIDERS: Emergency Medicine; Emergency Provider Emergency Medicine; PCP Family Medicine
DX: R06.2 Wheezing (principal); R07.9 Chest pain, unspecified; R05 Cough; Z20.822 Contact with and (suspected) exposure to COVID-19
CPT/HCPCS: 36415; 71045; 80053; 82550; 82553; 83690; 83735; 83880; 84484; 85025; 87635; 93005; 94640; 99284; 99285; C9803; A9270; J7613

== ENCOUNTER 2021-10-11 01:04 | Inpatient (IN) | payer OTHER, SELFPAY ==
[2020-12-01 21:56] VITALS: BMI 25.2
[2021-10-11] VITALS (46 sets, daily range): BP systolic 101–162; BP diastolic 53–94; PULSE 50–65; RESP 16–36; TEMP 29–37.2; O2SAT 91–100; BMI 29.2
--- NOTE | 2021-10-11 01:07 | DI.RAD.S_ITS ---
PROCEDURE: XR CHEST 1V INDICATIONS: sob low 02 TECHNIQUE: One view of the chest was acquired. COMPARISON: [facility], CR, XR CHEST 1V, 01/27/2021, 16:13. [facility], CR, XR CHEST 1V, 12/01/2020, 12:18. FINDINGS: Surgical changes and devices: None. Lungs and pleura: Lungs are abnormal, in this patient with prior plain film imaging indicating presence of COPD and pulmonary hyperexpansion. Inspiratory volume is reduced. There is a patchy bilateral alveolar airspace disease pattern superimposed.. No pleural effusions or pneumothorax. Mediastinum: Mediastinal contours appear normal. Heart size is normal. Bones and chest wall: No suspicious bony lesions. Overlying soft tissues appear unremarkable. IMPRESSION: COPD, now with reduced inspiratory volume and a generalized patchy alveolar infiltration pattern suspicious for representing atypical/viral pneumonia. Dictated by: Filipe Lozano M.D. on 10/11/2021 at 1:38 Approved by: Filipe Lozano M.D. on 10/11/2021 at 1:39
--- NOTE | 2021-10-11 01:22 | ED_ITS ---
HPI - SOB/Dyspnea General Chief Complaint: Shortness of Breath/Dyspnea Stated Complaint: SOB Time Seen by Provider: 10/11/21 01:08 History of Present Illness HPI Narrative: The patient is a 80-year-old male with history of congestive heart failure, with preserved systolic function, atrial fibrillation on Xarelto previous GI bleeding presenting today with shortness of breath. He overall is a very poor historian. Apparently EMS was called for cough and shortness of breath. They arrived in got an O2 of 60%. He was immediately put on CPAP with a were able to get an O2 of 80%. Patient actually appears in no respiratory distress he is not cyanotic he is awake and alert. Confirmed hypoxia in the emergency department requiring 100% on BiPAP with an O2 of 98-100%. He is overall a poor historian and difficult to get history while on BiPAP. It sounds as though he had no trouble sleeping. He has peripheral swelling or orthopnea. He is immediately placed on BiPAP. He appears to be tolerating it well. He denies fever chills. Related Data Home Medications Medication Instructions Recorded Confirmed amiodarone 200 mg tablet 200 mg PO BID 12/02/20 10/11/21 atorvastatin 40 mg tablet 40 mg PO DAILY 12/02/20 10/11/21 metoprolol succinate 50 mg 50 mg PO BID 12/02/20 10/11/21 tablet,extended release 24 hr rivaroxaban 20 mg tablet (Xarelto) 20 mg PO DAILY 12/02/20 10/11/21 Allergies Allergy/AdvReac Type Severity Reaction Status Date / Time No Known Drug Allergies Allergy Verified 12/01/20 12:12 Review of Systems Review of Systems Narrative: GENERAL: Denies chills, fatigue, malaise, fever, sweats, travel HEENT: Denies sinus pain, ear pain, sore throat, difficulty swallowing, neck pain RESPIRATORY: see HPI CARDIOVASCULAR: Denies chest pain, palpitations, orthopnea, edema GASTROINTESTINAL: Denies nausea, vomiting, abdominal pain, diarrhea, constipation, melena. : Denies dysuria, frequency, incontinence, hematuria, urinary retention, flank pain. MUSCULOSKELETAL: Denies weakness, joint pain, or bony pain SKIN: No rash, no erythema, no pruritus NEUROLOGIC: Denies weakness, dizziness, headache, numbness, change in speech, confusion PSYCHIATRIC: No concerning psychosocial issues. 12 point review of systems is negative except for those stated above and HPI Patient History Medical History Atrial fibrillation Atrial flutter Barretts esophagus CHF (congestive heart failure) Chronic cough Degenerative arthritis GERD (gastroesophageal reflux disease) GI bleed History of cardioversion Iron deficiency anemia Spinal stenosis of lumbar region with neurogenic claudication Surgical History History of coronary angioplasty with insertion of stent Hx of cholecystectomy Hx of tonsillectomy Social History household members: spouse Smoking Status: Never smoker alcohol intake: never Smoking Status: Never smoker Substance Use Type: does not use Exam Initial Vital Signs Initial Vital Signs: Vital Signs Pulse Rate 65 10/11/21 01:11 Pulse Oximetry 94 10/11/21 01:11 GENERAL: Awake alert 80-year-old male on CPAP no tachypnea or respiratory distress HEENT: Head atraumatic,EOMI, pupils reactive, face symmetric, moist mucous membranes CARDIOVASCULAR: Regular rate and rhythm without murmurs, rubs or gallops. RESPIRATORY: Slightly decreased breath sounds bilaterally no rales or rhonchi no tachypnea no cyanosis ABDOMEN: Soft, nontender. Normoactive bowel sounds all 4 quadrants. No guarding or rebound. EXTREMITIES: Normal range of motion, no clubbing or edema. Neurovascularly intact NEUROLOGICAL: Alert and oriented x2 SKIN: Warm, dry, no laceration, no petechiae, no rashes or lesions. Course Orders Ordered: ED Orders 10/11/21 21:57 Respiratory Panel (Film Array) Stat 10/12/21 05:00 Basic Metabolic Panel Routine Complete Blood Count AUTO DIFF Routine Acetaminophen (Acetaminophen 325 Mg Tablet) 650 mg PO Q6HR PRN PRN Reason: pain Albuterol/Ipratropium (Albuterol/Ipratropium 3 Ml Ampul) 3 ml INH [id number] FE Last Admin: 10/12/21 00:30 Dose: Not Given Documented by: [email or web address] Admin: 10/11/21 19:08 Dose: Not Given Documented by: Admin: 10/11/21 15:16 Dose: 3 ml Documented by: Admin: 10/11/21 11:00 Dose: 3 ml Documented by: EMILY Furosemide (Furosemide 40 Mg/4 Ml Vial) 40 mg IV DAILY [facility] Last Admin: 10/11/21 17:11 Dose: 40 mg Documented by: MAXWELL Ceftriaxone Sodium 1,000 mg/ (Sodium Chloride) 100 mls @ 200 mls/hr IV Q24H [facility] Last Admin: 10/11/21 13:53 Dose: 200 mls/hr Documented by: MAXWELL Azithromycin 500 mg/ Dextrose 250 mls @ 250 mls/hr IV Q24H [facility] Last Infusion: 10/11/21 13:57 Dose: 0 mls/hr Documented by: Admin: 10/11/21 12:17 Dose: 250 mls/hr Documented by: MAXWELL Naloxone HCl (Naloxone 0.4 Mg/Ml Vial) 0.2 mg IV Q2MIN PRN PRN Reason: Opiate Reversal Ondansetron HCl (Ondansetron 4 Mg/2 Ml Inj) 4 mg IV Q8HR PRN PRN Reason: Nausea And Vomiting Discontinued Medications Furosemide (Furosemide 40 Mg/4 Ml Vial) 40 mg IV NOW ONE Stop: 10/11/21 01:40 Last Admin: 10/11/21 01:45 Dose: 40 mg Documented by: RAGHAVENDRA Nitroglycerin (Nitroglycerin 0.4 Mg Sl Tab) 0.4 mg SL NOW ONE Stop: 10/11/21 01:40 Last Admin: 10/11/21 01:45 Dose: 0.4 mg Documented by: RAGHAVENDRA Prednisone (Prednisone 20 Mg Tablet) 40 mg PO DAILY [facility] Last Admin: 10/11/21 10:31 Dose: 40 mg Documented by: DAPHNE Vital Signs Vital signs: Vital Signs - 8 hr 10/11/21 01:11 10/11/21 01:12 10/11/21 01:17 Temperature 98.4 F Pulse Rate 65 65 64 Respiratory Rate 18 Blood Pressure 150/92 H 150/92 H Pulse Oximetry 94 92 96 10/11/21 01:30 10/11/21 02:00 10/11/21 02:10 Temperature Pulse Rate 57 L 60 65 Respiratory Rate 21 25 H Blood Pressure 162/86 H 130/76 157/94 H Pulse Oximetry 99 100 94 10/11/21 02:20 10/11/21 02:30 10/11/21 02:40 Temperature Pulse Rate 59 L 58 L 58 L Respiratory Rate 18 16 19 Blood Pressure 117/73 111/71 126/75 Pulse Oximetry 93 98 95 10/11/21 02:50 10/11/21 03:00 10/11/21 03:15 Temperature Pulse Rate 59 L 53 L 53 L Respiratory Rate 17 17 18 Blood Pressure 119/75 120/76 Pulse Oximetry 98 99 10/11/21 03:30 10/11/21 04:00 10/11/21 04:12 Temperature Pulse Rate 58 L 58 L 57 L Respiratory Rate 20 19 24 Blood Pressure 120/79 115/71 Pulse Oximetry 93 93 96 10/11/21 04:20 10/11/21 04:30 10/11/21 04:40 Temperature Pulse Rate 56 L 61 55 L Respiratory Rate 33 H 24 26 H Blood Pressure 122/73 141/77 H Pulse Oximetry 95 95 97 10/11/21 05:10 Temperature Pulse Rate Respiratory Rate Blood Pressure 112/78 Pulse Oximetry MDM - SOB/Dyspnea Lab Data Result diagrams: 10/11/21 01:18 10/11/21 01:18 Labs: Lab Results 10/11/21 10/11/21 10/11/21 Range/Units 01:06 01:18 01:18 WBC 13.4 H (4.5-11.0) X10^3/uL RBC 5.06 (4.5-5.9) X10^6/uL Hgb 12.4 L (13.5-17.5) g/dL Hct 39.8 L (41-53) % MCV 78.6 L (80-100) fL MCH 24.5 L (26-34) PG MCHC 31.2 (30-36) % RDW 19.3 H (11.6-14.8) % Plt Count 415 H (150-400) X10^3/uL Neut % (Auto) Not Reportable Lymph % (Auto) Not Reportable Grand % (Auto) Not Reportable Eos % (Auto) Not Reportable Baso % (Auto) Not Reportable Lymph # (Auto) Not Reportable Grand # (Auto) Not Reportable Baso # (Auto) Not Reportable Total Counted 100 Seg Neutrophils % 54.0 (38-70) % Band Neutrophils % 3.0 (3-7) % Lymphocytes % (Manual) 14.0 L (25-45) % Monocytes % (Manual) 7.0 (2-11) % Eosinophils % (Manual) 20.0 H (2-4) % Basophils % (Manual) 2.0 H (0-1) % Neutrophils # (Manual) 7638 H (9887-6585) /uL RBC Morphology See below Poikilocytosis 1+ H Anisocytosis 1+ H PT 31.7 H (10.1-12.7) SECONDS INR 2.7 H (0.9-1.3) APTT 41 H (26.4-36.2) SECONDS ABG pH (7.35-7.45) ABG pCO2 (35-45) mmHg ABG pO2 (80-100) mmHg ABG HCO3 (22-26) mmol/L ABG Total CO2 (21-31) mmol/L ABG O2 Saturation (95-100) % ABG Base Excess (-2-2) mmol/L FiO2 Sodium (137-145) mmol/L Potassium (3.4-5.1) mmol/L Chloride (98-107) mmol/L Carbon Dioxide (22-32) mmol/L BUN (9-20) mg/dL Creatinine (0.66-1.25) mg/dL Estimated GFR (>60) mL/min BUN/Creatinine Ratio (6-22) Glucose (80-110) mg/dL Lactate (0.7-2.1) mmol/L Calcium (8.4-10.2) mg/dL Magnesium (1.6-2.3) mg/dL Total Bilirubin (0.2-1.3) mg/dL AST (17-59) IU/L ALT (<50) IU/L Alkaline Phosphatase (38-126) U/L Total Creatine Kinase (55-170) U/L CK-MB (CK-2) CK-MB (CK-2) Rel Index Troponin I (0.01-0.034) ng/mL NT-Pro-B Natriuret Pep (<450) pg/mL Total Protein (6.3-8.2) g/dL Albumin (3.5-5.0) g/dL Globulin (1.7-4.1) g/dL Albumin/Globulin Ratio (1.0-2.8) SARS-CoV-2 (PCR) Negative (Negative) 0310/11/21 10/11/21 Range/Units 01:18 01:18 01:53 WBC (4.5-11.0) X10^3/uL RBC (4.5-5.9) X10^6/uL Hgb (13.5-17.5) g/dL Hct (41-53) % MCV (80-100) fL MCH (26-34) PG MCHC (30-36) % RDW (11.6-14.8) % Plt Count (150-400) X10^3/uL Neut % (Auto) Lymph % (Auto) Grand % (Auto) Eos % (Auto) Baso % (Auto) Lymph # (Auto) Grand # (Auto) Baso # (Auto) Total Counted Seg Neutrophils % (38-70) % Band Neutrophils % (3-7) % Lymphocytes % (Manual) (25-45) % Monocytes % (Manual) (2-11) % Eosinophils % (Manual) (2-4) % Basophils % (Manual) (0-1) % Neutrophils # (Manual) (2492-5238) /uL RBC Morphology Poikilocytosis Anisocytosis PT (10.1-12.7) SECONDS INR (0.9-1.3) APTT (26.4-36.2) SECONDS ABG pH 7.48 H (7.35-7.45) ABG pCO2 39.5 (35-45) mmHg ABG pO2 81 (80-100) mmHg ABG HCO3 30 H (22-26) mmol/L ABG Total CO2 31 (21-31) mmol/L ABG O2 Saturation 97 (95-100) % ABG Base Excess 6.0 H (-2-2) mmol/L FiO2 100 Sodium 141 (137-145) mmol/L Potassium 3.2 L (3.4-5.1) mmol/L Chloride 105 (98-107) mmol/L Carbon Dioxide 31 (22-32) mmol/L BUN 24 H (9-20) mg/dL Creatinine 1.56 H (0.66-1.25) mg/dL Estimated GFR 43.1 L (>60) mL/min BUN/Creatinine Ratio 15.4 (6-22) Glucose 103 (80-110) mg/dL Lactate 3.0 H (0.7-2.1) mmol/L Calcium 10.6 H (8.4-10.2) mg/dL Magnesium 1.6 (1.6-2.3) mg/dL Total Bilirubin 0.7 (0.2-1.3) mg/dL AST 34 (17-59) IU/L ALT 17 (<50) IU/L Alkaline Phosphatase 113 (38-126) U/L Total Creatine Kinase 90 (55-170) U/L CK-MB (CK-2) TNP CK-MB (CK-2) Rel Index TNP Troponin I < 0.012 (0.01-0.034) ng/mL NT-Pro-B Natriuret Pep 1410 H (<450) pg/mL Total Protein 8.1 (6.3-8.2) g/dL Albumin 3.1 L (3.5-5.0) g/dL Globulin 5.0 H (1.7-4.1) g/dL Albumin/Globulin Ratio 0.6 L (1.0-2.8) SARS-CoV-2 (PCR) (Negative) 10/11/21 10/11/21 Range/Units 03:29 06:15 WBC (4.5-11.0) X10^3/uL RBC (4.5-5.9) X10^6/uL Hgb (13.5-17.5) g/dL Hct (41-53) % MCV (80-100) fL MCH (26-34) PG MCHC (30-36) % RDW (11.6-14.8) % Plt Count (150-400) X10^3/uL Neut % (Auto) Lymph % (Auto) Grand % (Auto) Eos % (Auto) Baso % (Auto) Lymph # (Auto) Grand # (Auto) Baso # (Auto) Total Counted Seg Neutrophils % (38-70) % Band Neutrophils % (3-7) % Lymphocytes % (Manual) (25-45) % Monocytes % (Manual) (2-11) % Eosinophils % (Manual) (2-4) % Basophils % (Manual) (0-1) % Neutrophils # (Manual) (5212-6313) /uL RBC Morphology Poikilocytosis Anisocytosis PT (10.1-12.7) SECONDS INR (0.9-1.3) APTT (26.4-36.2) SECONDS ABG pH (7.35-7.45) ABG pCO2 (35-45) mmHg ABG pO2 (80-100) mmHg ABG HCO3 (22-26) mmol/L ABG Total CO2 (21-31) mmol/L ABG O2 Saturation (95-100) % ABG Base Excess (-2-2) mmol/L FiO2 Sodium (137-145) mmol/L Potassium (3.4-5.1) mmol/L Chloride (98-107) mmol/L Carbon Dioxide (22-32) mmol/L BUN (9-20) mg/dL Creatinine (0.66-1.25) mg/dL Estimated GFR (>60) mL/min BUN/Creatinine Ratio (6-22) Glucose (80-110) mg/dL Lactate 2.0 (0.7-2.1) mmol/L Calcium (8.4-10.2) mg/dL Magnesium (1.6-2.3) mg/dL Total Bilirubin (0.2-1.3) mg/dL AST (17-59) IU/L ALT (<50) IU/L Alkaline Phosphatase (38-126) U/L Total Creatine Kinase (55-170) U/L CK-MB (CK-2) CK-MB (CK-2) Rel Index Troponin I < 0.012 (0.01-0.034) ng/mL NT-Pro-B Natriuret Pep (<450) pg/mL Total Protein (6.3-8.2) g/dL Albumin (3.5-5.0) g/dL Globulin (1.7-4.1) g/dL Albumin/Globulin Ratio (1.0-2.8) SARS-CoV-2 (PCR) (Negative) Imaging Data Chest x-ray: Radiologist's Impression: PROCEDURE:? XR CHEST 1V ? INDICATIONS:? sob low 02 ? TECHNIQUE:? One view of the chest was acquired.? ? COMPARISON:? [facility], , XR CHEST 1V, 01/27/2021, 16:13.? [facility], , XR CHEST 1V, 12/01/2020, 12:18. ? FINDINGS:? ? Surgical changes and devices:? None.? ? Lungs and pleura:? Lungs are abnormal, in this patient with prior plain film imaging indicating presence of COPD and pulmonary hyperexpansion.? Inspiratory volume is reduced. ?There is a patchy bilateral alveolar airspace disease pattern superimposed..? No pleural effusions or pneumothorax.? ? Mediastinum:? Mediastinal contours appear normal.? Heart size is normal.? ? Bones and chest wall:? No suspicious bony lesions.? Overlying soft tissues appear unremarkable.? ? IMPRESSION:? COPD, now with reduced inspiratory volume and a generalized patchy alveolar infiltration pattern suspicious for representing atypical/viral pneumonia. ? ? Dictated by: Filipe Lozano M.D. on 10/11/2021 at 1:38 ? ? Approved by: Filipe Lozano M.D. on 10/11/2021 at 1:3 CT scan - chest: Radiologist's Impression: Preliminary report and no pulmonary embolism. Ascending thoracic aorta diameter 4 cm. Cardiomegaly. Calcified coronary artery disease. Small pericardial effusion. Mild mediastinal lymphadenopathy. Reticular fibrosis predominantly along with bases. Ground-glass opacities suggesting superimposed alveolitis. Small bilateral pleural effusion. ECG Data Interpretation: Normal sinus rhythm, rate [address] changes similar to previous EKG in January 2020 MDM Narrative Medical decision making narrative: The patient is hypoxic with a good waveform confirmed by ABG. However the patient does not appear in any acute respiratory distress. BNP minimally elevated at 1400. X-ray is read as COPD without prior history of COPD. He is not anemic. He is on Xarelto it would be odd for him to have a PE nonetheless a CT angio was done which was negative for PE. COVID is negative. He has diuresed with nitro and Lasix in the emergency department. BiPAP has been quickly is titrated down from 100% down to 40%. He has never been in significant respiratory distress. [id number] Dr. Gomez at [facility] is requests that we see if there are discharge is here at this hospital especially patient is being titrated off his BiPAP. [id number], Ruth Trejo accepts patient Discharge Plan Departure Patient Disposition: Admitted As Inpatient Clinical Impression: CHF (congestive heart failure) Admit Date/Time: 10/11/21 09:42 Admit Provider: Paula Trejo
[2021-10-11 01:25] LABS: COVID19 -Nasal RAPID Negative (Negative)
[2021-10-11 01:28] LABS: Add Manual Diff / Slide Review YES; Hematocrit 39.8 % (41-53); Hemoglobin 12.4 g/dL (13.5-17.5); Mean Corpuscular HGB Conc 31.2 % (30-36); Mean Corpuscular Hemoglobin 24.5 PG (26-34); Mean Corpuscular Volume 78.6 fL (80-100); Platelet Count 415 X10^3/uL (150-400); Red Blood Cell Count 5.06 X10^6/uL (4.5-5.9); Red Cell Distribution Width 19.3 % (11.6-14.8); White Blood Cell Count 13.4 X10^3/uL (4.5-11.0)
[2021-10-11 01:34] LABS: INR 2.7 (0.9-1.3); Prothrombin Time 31.7 SECONDS (10.1-12.7)
[2021-10-11 01:37] LABS: PTT Partial Thromboplastin Tim 41 SECONDS (26.4-36.2)
[2021-10-11 01:43] LABS: Alanine Aminotransferase 17 IU/L (<50); Albumin 3.1 g/dL (3.5-5.0); Albumin Globulin Ratio 0.6 (1.0-2.8); Alkaline Phosphatase 113 U/L (38-126); Aspartate Aminotransferase 34 IU/L (17-59); BUN Creatinine Ratio 15.4 (6-22); Bilirubin Total 0.7 mg/dL (0.2-1.3); Blood Urea Nitrogen 24 mg/dL (9-20); Calcium 10.6 mg/dL (8.4-10.2); Carbon Dioxide 31 mmol/L (22-32); Chloride 105 mmol/L (98-107); Creatine Kinase 90 U/L (55-170); Estimated Glomerular Filt Rate 43.1 mL/min (>60); Glucose 103 mg/dL (80-110); HEMOLYSIS < 15 (0-50); Magnesium 1.6 mg/dL (1.6-2.3); Potassium 3.2 mmol/L (3.4-5.1); Sodium 141 mmol/L (137-145); Total Protein 8.1 g/dL (6.3-8.2)
[2021-10-11] MEDS: FUROSEMIDE 40 MG/4 ML VIAL IV ×2 (01:45→17:11)
[2021-10-11] MEDS: NITROGLYCERIN 0.4 MG SL TAB SL (01:45)
[2021-10-11 01:53] LABS: NT-proBNP (BNP-Adult 18+) 1410 pg/mL (<450); Troponin I < 0.012 ng/mL (0.01-0.034)
[2021-10-11 02:00] LABS: Neutrophils Absolute Manual 7638 /uL (3000-5900); Total Cells Counted 100
[2021-10-11 02:01] LABS: Anisocytosis 1+; Poikilocytosis 1+
[2021-10-11 02:24] LABS: PCO2 ABG 39.5 mmHg (35-45); PO2 ABG 81 mmHg (80-100); pH ABG 7.48 (7.35-7.45)
[2021-10-11 02:25] LABS: Fractionated Inspired Oxygen 100; HCO3 ABG 30 mmol/L (22-26); Oxygen Saturation ABG 97 % (95-100); TCO2 ABG 31 mmol/L (21-31)
--- NOTE | 2021-10-11 02:47 | DI.CT.S_ITS ---
PROCEDURE: CT ANGIO CHEST PE PROTOCOL INDICATIONS: severe hypoxia TECHNIQUE: After the administration of intravenous contrast, 2 mm thick sections acquired from the pulmonary apices to the posterior costophrenic angles. 3-dimensional maximum intensity projection (MIP) coronal and sagittal reformats were then acquired through the thorax. For radiation dose reduction, the following was used: automated exposure control, adjustment of mA and/or kV according to patient size. COMPARISON: [facility], CR, XR CHEST 1V, 10/11/2021, 1:05. [facility], CR, XR CHEST 1V, 01/27/2021, 16:13. FINDINGS: Image quality: Excellent. Pulmonary arteries: Pulmonary arteries are normal in size, and demonstrate no intraluminal filling defects to suggest central pulmonary embolism. Lungs and pleura: Bilateral dependent poorly defined ground-glass infiltrates are seen, primarily involving the lower lobes. Areas of subpleural fibrosis can be seen. Trace bilateral pleural effusions are seen. No pneumothorax. The central airways are patent. Mediastinum: Heart size is at the upper limits of normal, with a trace pericardial effusion. Moderate to prominent coronary artery calcification can be seen. No mediastinal or hilar adenopathy. Thoracic aorta is normal in caliber and enhancement. The ascending thoracic aorta measures near the upper limits of normal at 3.8 cm transversely, as seen on coronal images. Esophagus is normal in caliber, without hiatal hernia. Bones and chest wall: No suspicious bony lesions. Mild ductus excavatum deformity can be seen. Age-appropriate bony degenerative changes are seen. Ribs and thoracic spine appear intact throughout. Thyroid gland demonstrates no significant abnormality. No axillary or supraclavicular adenopathy. Abdomen: Cholecystectomy clips are seen. Visualized upper abdominal solid organs appear normal in the early arterial phase of enhancement. IMPRESSION: Negative for pulmonary embolism. Bilateral dependent ground-glass of infiltrates are seen. In this patient, infection is suspected. There are trace bilateral pleural effusions. Incidental note is made of: Moderate to prominent coronary artery calcification Heart size at the upper limits of normal Ascending thoracic aorta measures at the upper limits of normal Trace pericardial effusion. Pectus excavatum deformity Cholecystectomy Note: No significant discrepancy from the preliminary report. Dictated by: Andrea Miranda M.D. on 10/11/2021 at 7:15 Approved by: Andrea Miranda M.D. on 10/11/2021 at 7:21
[2021-10-11 03:18] LABS: Reflexed Lactate in 2 Hours Y
[2021-10-11 06:48] LABS: Troponin I < 0.012 ng/mL (0.01-0.034)
[2021-10-11] MEDS: predniSONE 20 MG TABLET 40 MG PO (10:31)
[2021-10-11] MEDS: ALBUTEROL/IPRATROPIUM 3 ML AMPUL INH ×2 (11:00→15:16)
[2021-10-11] MEDS: AZITHROMYCIN 500 MG in DEXTROSE 5% IN WATER 250 ML IV (12:17)
[2021-10-11] MEDS: cefTRIAXone 1,000 MG in SODIUM CHLORIDE 0.9% 100 ML 200 ML IV (13:53)
--- NOTE | 2021-10-11 18:22 | P.HP_ITS ---
History of Present Illness History of Present Illness Date Patient Seen: 10/11/21 Time Patient Seen: 11:00 Chief complaint: SOB Narrative: Mr. Pro is a 80M with PMH CHFpEF, Afib, previous GI bleed who presents with shortness of breath. He notes primarily feeling short of breath with standing up and other exertion. This has been occurring for 2 weeks. He has no chest pain. No fevers/chills. Minimal coughing. He denies leg swelling or weight gain. He is not able to provide much more detailed history. EMS presented to his house and on arrival sats documented in 60s. He was placed on CPAP, and then to BIPAP once in the ED. In the ED workup was done, vitals notable for him being afebrile, heart rate in 60s, slightly elevated blood pressure. He was able to weaned off bipap quickly and placed on nasal cannula. Labs notable for WBC 13.4, hgb 12.4, plts 415, BUN 24, creatinine 1.56. INR 2.7. Lactate 3.0, improved to 2.0 with treatment. BNP 1400. Chest xray with reduced volume and patchy infiltrate. CT shows cardiomegaly, small pericardial effusion, reticular fibrosis along bases, and ground glass opacities with small pleural effusion. He was ordered for lasix and nitro and felt significantly improved. He was admitted for further treatment. Family history: sister with breast cancer Patient History Medical History Atrial fibrillation Atrial flutter Barretts esophagus CHF (congestive heart failure) Chronic cough Degenerative arthritis GERD (gastroesophageal reflux disease) GI bleed History of cardioversion Iron deficiency anemia Spinal stenosis of lumbar region with neurogenic claudication Surgical History History of coronary angioplasty with insertion of stent Hx of cholecystectomy Hx of tonsillectomy Family & Social History Social History: household members spouse Safety & Behavioral: Feels Safe in Current Yes Environment Tobacco & Substance use: Smoking Status Never smoker alcohol intake never Substance Use Type does not use Meds Home Medications and Allergies Home Medications Medication Instructions Recorded Confirmed Type amiodarone 200 mg tablet 200 mg PO BID 12/02/20 10/11/21 History atorvastatin 40 mg tablet 40 mg PO DAILY 12/02/20 10/11/21 History metoprolol succinate 50 mg 50 mg PO BID 12/02/20 10/11/21 History tablet,extended release 24 hr rivaroxaban 20 mg tablet (Xarelto) 20 mg PO DAILY 12/02/20 10/11/21 History Allergies Allergy/AdvReac Type Severity Reaction Status Date / Time No Known Drug Allergies Allergy Verified 12/01/20 12:12 Review of Systems Review of Systems Narrative: 14 systems reviewed and negative aside from what is noted in HPI Exam Vital Signs (past 8 hours): - 10/11/21 10:56 10/11/21 13:29 10/11/21 14:00 Temperature 98.1 F Pulse Rate 50 L 59 L Respiratory Rate 18 18 Blood Pressure 101/53 L Pulse Oximetry 97 94 96 10/11/21 15:21 Temperature Pulse Rate 54 L Respiratory Rate 18 Blood Pressure Pulse Oximetry 97 Fraction of Inspired Oxygen 40 Oxygen Delivery Method Nasal Cannula Oxygen Flow Rate 2 Narrative Exam Narrative: GEN: no acute distress HEENT: moist mucous membranes, PERRL NECK: trachea midline, no JVD CV: regular rate and rhythm, no murmurs PULM: crackles bilaterally, greater at right lung base, no wheezes ABD: soft, nontender, nondistended, no organomegaly, normal bowel sounds EXT: warm and well perfused with no edema NEURO: awake, alert, oriented, no focal deficits Objective Labs Result Diagrams: 10/11/21 01:18 10/11/21 01:18 Labs: Laboratory Results - last 24 hr 10/11/21 10/11/21 10/11/21 01:06 01:18 01:18 WBC 13.4 H RBC 5.06 Hgb 12.4 L Hct 39.8 L MCV 78.6 L MCH 24.5 L MCHC 31.2 RDW 19.3 H Plt Count 415 H Neut % (Auto) Not Reportable Lymph % (Auto) Not Reportable Harper % (Auto) Not Reportable Eos % (Auto) Not Reportable Baso % (Auto) Not Reportable Lymph # (Auto) Not Reportable Harper # (Auto) Not Reportable Baso # (Auto) Not Reportable Total Counted 100 Seg Neutrophils % 54.0 Band Neutrophils % 3.0 Lymphocytes % (Manual) 14.0 L Monocytes % (Manual) 7.0 Eosinophils % (Manual) 20.0 H Basophils % (Manual) 2.0 H Neutrophils # (Manual) 7638 H RBC Morphology See below Poikilocytosis 1+ H Anisocytosis 1+ H PT 31.7 H INR 2.7 H APTT 41 H ABG pH ABG pCO2 ABG pO2 ABG HCO3 ABG Total CO2 ABG O2 Saturation ABG Base Excess FiO2 Sodium Potassium Chloride Carbon Dioxide BUN Creatinine Estimated GFR BUN/Creatinine Ratio Glucose Lactate Calcium Magnesium Total Bilirubin AST ALT Alkaline Phosphatase Total Creatine Kinase CK-MB (CK-2) CK-MB (CK-2) Rel Index Troponin I NT-Pro-B Natriuret Pep Total Protein Albumin Globulin Albumin/Globulin Ratio SARS-CoV-2 (PCR) Negative 10/11/21 10/11/21 10/11/21 01:18 01:18 01:53 WBC RBC Hgb Hct MCV MCH MCHC RDW Plt Count Neut % (Auto) Lymph % (Auto) Harper % (Auto) Eos % (Auto) Baso % (Auto) Lymph # (Auto) Harper # (Auto) Baso # (Auto) Total Counted Seg Neutrophils % Band Neutrophils % Lymphocytes % (Manual) Monocytes % (Manual) Eosinophils % (Manual) Basophils % (Manual) Neutrophils # (Manual) RBC Morphology Poikilocytosis Anisocytosis PT INR APTT ABG pH 7.48 H ABG pCO2 39.5 ABG pO2 81 ABG HCO3 30 H ABG Total CO2 31 ABG O2 Saturation 97 ABG Base Excess 6.0 H FiO2 100 Sodium 141 Potassium 3.2 L Chloride 105 Carbon Dioxide 31 BUN 24 H Creatinine 1.56 H Estimated GFR 43.1 L BUN/Creatinine Ratio 15.4 Glucose 103 Lactate 3.0 H Calcium 10.6 H Magnesium 1.6 Total Bilirubin 0.7 AST 34 ALT 17 Alkaline Phosphatase 113 Total Creatine Kinase 90 CK-MB (CK-2) TNP CK-MB (CK-2) Rel Index TNP Troponin I < 0.012 NT-Pro-B Natriuret Pep 1410 H Total Protein 8.1 Albumin 3.1 L Globulin 5.0 H Albumin/Globulin Ratio 0.6 L SARS-CoV-2 (PCR) 10/11/21 10/11/21 03:29 06:15 WBC RBC Hgb Hct MCV MCH MCHC RDW Plt Count Neut % (Auto) Lymph % (Auto) Harper % (Auto) Eos % (Auto) Baso % (Auto) Lymph # (Auto) Harper # (Auto) Baso # (Auto) Total Counted Seg Neutrophils % Band Neutrophils % Lymphocytes % (Manual) Monocytes % (Manual) Eosinophils % (Manual) Basophils % (Manual) Neutrophils # (Manual) RBC Morphology Poikilocytosis Anisocytosis PT INR APTT ABG pH ABG pCO2 ABG pO2 ABG HCO3 ABG Total CO2 ABG O2 Saturation ABG Base Excess FiO2 Sodium Potassium Chloride Carbon Dioxide BUN Creatinine Estimated GFR BUN/Creatinine Ratio Glucose Lactate 2.0 Calcium Magnesium Total Bilirubin AST ALT Alkaline Phosphatase Total Creatine Kinase CK-MB (CK-2) CK-MB (CK-2) Rel Index Troponin I < 0.012 NT-Pro-B Natriuret Pep Total Protein Albumin Globulin Albumin/Globulin Ratio SARS-CoV-2 (PCR) Assessment & Plan Assessment & Plan narrative: Mr. Pro is a 80M with PMH CHF, atrial fibrillation, hx GI bleed, aortic stenosis, CAD who presents with shortness of breath and acute hypoxemic respiratory failure. 1. Acute hypoxemic respiratory failure with pneumonia and acute CHF exacerbation -has history of CHF, with elevated BNP and pleural effusions are consistent with acute CHF exacerbation -continue diuresis with lasix -ECHO ordered -additionally has leukocytosis, ground glass opacities, and possible fibrosis -etiology is broad but concern for pneumonia, order respiratory panel and sputum cultures -started on IV ceftriaxone and azithromycin -blood cultures pending -will empirically start on prednisone as well 2. Eosinophilia -absolute count of 2600 -continue to trend -unclear if this is related to etiology of presentation -hold steroids for now -high rest CT pulmonary for further eval -may need further infectious workup for causes of eosinophilia 3. ARANZA -continue to trend daily -did diurese well today -avoid nephrotoxins, but did get CTA in ED 4. Aortic stenosis -keep euvolemic as able 5. Atrial fibrillation, paroxysmal -hold amiodarone and metoprolol for now -will restart at lower doses -continue xarelto 6. CAD -continue home medications, with atorvastatin CODE: DNR Proxy: Spouse, Breanna I have utilized all available resources to reconcile the patient's home medications. Time Spent With Patient Critical Care time: I spent a total of [] minutes of critical care time on this patient's care today; this time is exclusive of procedural time. Quality MIPS - Admit I confirm the patient?s Advance Care Plan is present, Code status is documented, Surrogate decision maker is in patient?s record [If Yes, STOP here]: Yes
--- NOTE | 2021-10-11 18:49 | DI.ECHO.S_ITS ---
[facility]---------[facility] +---------+ : : [address] : : : : [id number] : : : : Phone: [phone]---------+ Echocardiogram Report + + :Name: RIKA TREVIÑO Study Date: 10/12/2021 Height: 61 in : :[facility] ReadingLocation: Weight: 154 lb : : Gender: Male BSA: 1.7 m2 : :: 1940 Age: 80 yrs BP: 130/70 mmHg: :Reason For Study: CONGESTIVE HEART FAILURE : :Ordering Physician: SHAUN, : :RABIA Performed By: Maribeth Khoury : :Referring: RABIA DUNN : + + Interpretation Summary Technically difficult study due to pectus excavatum. Mild concentric left ventricular hypertrophy with ejection fraction 55-60%. The right atrium is severely dilated. The aortic valve is mildly calcified. There is mild mitral regurgitation. There is mild to moderate tricuspid regurgitation. The right ventricular systolic pressure is estimated to be at least 35 mmHg based on an estimated right atrial pressure of 3 mm Hg. Comparison is made with the echocardiogram of 12/02/2020, there has been no significant change. Procedure: A two-dimensional transthoracic echocardiogram with color flow and Doppler was performed. The study quality was technically difficult. Comparison is made with the echocardiogram of 12/02/2020. The patient was in sinus rhythm with heart rates between 59-70 bpm during the exam. Left Ventricle: The left ventricle is normal in size. There is mild concentric left ventricular hypertrophy. The ejection fraction is estimated to be 55-60%. There are no focal wall motion abnormalities. Right Ventricle: The right ventricle grossly appears normal in size with probable normal systolic function. Atria: The left atrium is not well visualized. The right atrium is severely dilated. The interatrial septum bows toward right atrium consistent with elevated left atrial pressure. There is no Doppler evidence for an interatrial shunt. Mitral Valve: The mitral valve is normal in structure and function. The mitral valve leaflets are slightly calcified. There is mild mitral regurgitation. Aortic Valve: The aortic valve is mildly calcified. The aortic valve is trileaflet. History of mild aortic stenosis in 2020, unable to obtain similar aortic gradients on today's study. No aortic regurgitation is present. Tricuspid Valve: The tricuspid valve is not well visualized, but is grossly normal. There is mild to moderate tricuspid regurgitation. The right ventricular systolic pressure is estimated to be at least 35 mmHg based on an estimated right atrial pressure of 3 mm Hg. Pulmonic Valve: The pulmonic valve is not well seen, but is grossly normal. There is trace pulmonic regurgitation. Great Vessels: The aortic root is mildly dilated. The ascending aorta is at the upper limits of normal in size. The IVC is of normal diameter and collapses greater than 50% with a sniff. This suggests a low right atrial pressure of 3 mm Hg. Pericardium/ Pleura There is no pericardial effusion. There is no pleural effusion. MMode/2D Measurements & Calculations LVIDd: 4.5 cm LVOT diam: 2.0 cm LVIDs: 3.0 cm Ao root diam: 3.3 cm FS: 34.2 % asc Aorta Diam: 3.7 cm IVSd: 1.2 cm Ao Arch Diam (Prox Trans): 2.6 cm LVPWd: 0.93 cm LV laura. diameter/BSA (cm/m^2): 2.7 LV sys. diameter/BSA (cm/m^2): 1.8 LA A4 area: 23.1 cm2 RA long axis: 6.5 cm LA length (vol): 7.0 cm RA area: 28.1 cm2 RA vol: 104.2 ml RA : 61.7 ml/m2 IVC diam: 1.2 cm RVD1 (basal): 3.9 cm TAPSE: 2.0 cm Doppler Measurements & Calculations Ao V2 max: 159.5 cm/sec LVOT Max Emerson: 53.9 cm/sec Ao V2 mean: 113.8 cm/sec LV V1 max P.2 mmHg Ao max P.2 mmHg LV V1 VTI: 10.4 cm Ao mean P.7 mmHg TURNER(I,D): 1.2 cm2 Ao V2 VTI: 27.7 cm TURNER(V,D): 1.1 cm2 sev ratio: 0.37 TURNER indexed to BSA (cm^2/m^2): 0.71 MV E max emerson: 48.4 cm/sec TR max emerson: 284.5 cm/sec MV A max emerson: 56.3 cm/sec TR max P.4 mmHg MV E/A: 0.86 PA V2 max: 124.5 cm/sec Med Peak E' Emerson: 4.3 cm/sec PA V2 mean: 77.0 cm/sec E/E' med: 11.3 PA mean P.8 mmHg Lat Peak E' Emerson: 6.7 cm/sec MONTRELL pr(Accel): 39.6 mmHg E/E' lat: 7.2 E/e' average: 9.2 MV dec time: 0.27 sec SV(LVOT): 33.3 ml Electronically signed by: Malu Sequeira on Reading Physician:10/12/2021 01:45 PM
--- NOTE | 2021-10-11 18:52 | DI.CT.S_ITS ---
PROCEDURE: CT CHEST HIGH RESOLUTION INDICATIONS: sob, eosinophilia TECHNIQUE: Noncontrast 1.0 and 5.0 mm thick contiguous axial sections from the pulmonary apex to the posterior costophrenic angles, with 7 mm thick coronal and sagittal MIP reformats. 1 mm thick dynamic expiratory images acquired through the upper, mid, and lower lungs. 1.0 mm thick axial sections acquired from the vu to the posterior costophrenic angles in the prone end-inspiration position. For radiation dose reduction, the following was used: automated exposure control, adjustment of mA and/or kV according to patient size. COMPARISON: Merged With [facility], CR, XR CHEST 1V, 10/11/2021, 1:05. Merged With [facility], CT, CT ANGIO CHEST PE PROTOCOL, 10/11/2021, 3:05. FINDINGS: Image quality: Diagnostic. Lungs: There is subpleural reticulation, traction bronchiectasis, and probable honeycombing bilaterally with a basilar predominance. Findings compatible with a UIP pattern of chronic interstitial lung disease. In addition, there are confluent peribronchial ground-glass opacities also demonstrated bilaterally with a basilar predominance. Dynamic images demonstrate no evidence of air trapping. Pleura: There are small bilateral pleural effusions. No pneumothorax. Mediastinum: Heart size is mildly enlarged. No pericardial effusion. There is ectasia of the ascending thoracic aorta which measures up to 3.8 cm. The pulmonary arteries are enlarged, with the main pulmonary artery measuring up to 3.1 cm suggestive of pulmonary arterial hypertension. There are mildly enlarged mediastinal lymph nodes including a precarinal node measuring up to 1.2 cm in short axis. A patient admitting representative AP window node measures up to 1.0 cm in short axis. Esophagus is normal in caliber. There is a small hiatal hernia. Bones and chest wall: No suspicious bony lesions. No vertebral body compression fractures. Thyroid is heterogeneous in appearance with suggestion of indistinct nodules. Abdomen: Visualized upper abdominal solid organs and bowel loops appear normal. IMPRESSION: 1. 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 The presence of bilateral ground-glass opacities also with a basilar predominance as well as small pleural effusions likely represents a superimposed acute inflammatory or infectious process. The differential includes an NSIP pattern chronic interstitial lung disease but this is considered less likely. Recommend short-term follow-up CT to demonstrate resolution of the ground-glass components following appropriate therapy. 2. Mildly enlarged pulmonary arteries suggestive of pulmonary arterial hypertension. Dictated by: Wong Peres M.D. on 10/11/2021 at 20:19 Approved by: Wong Peres M.D. on 10/11/2021 at 20:27
[2021-10-11 22:49] LABS: Adenovirus Not Detected (Not Detect); B. parapertussis Not Detected (Not Detecte); Bordetella pertussis Not Detected (Not Detecte); Chlamydophila pneumoniae Not Detected (Not Detect); Coronavirus 229E Not Detected (Not Detect); Coronavirus HKU1 Not Detected (Not Detect); Coronavirus NL 63 Not Detected (Not Detect); Coronavirus OC43 Not Detected (Not Detect); Human Metapneumovirus Not Detected (Not Detect); Human Rhinovirus/Enterovirus Not Detected (Not Detect); Influenza A Not Detected (Not Detect); Influenza B Not Detected (Not Detect); Mycoplasma pneumoniae Not Detected (Not Detect); Parainfluenza Virus 1 Not Detected (Not Detect); Parainfluenza Virus 2 Not Detected (Not Detect); Parainfluenza Virus 3 Not Detected (Not Detect); Parainfluenza Virus 4 Not Detected (Not Detect); Respiratory Syncytial Virus Not Detected (Not Detect); SARS- CoV-2 Not Detected (Not Detecte)
[2021-10-12] VITALS (14 sets, daily range): BP systolic 110–150; BP diastolic 56–79; PULSE 53–85; RESP 17–21; TEMP 36.1–36.9; O2SAT 92–99
[2021-10-12 05:41] LABS: Add Manual Diff / Slide Review NO; Basophils Absolute Auto 0 /uL (0-100); Basophils Percent Auto 0.1 % (0-2); Eosinophils Absolute Auto 0 /uL (0-450); Eosinophils Percent Auto 0.1 % (2-4); Hematocrit 32.7 % (41-53); Hemoglobin 10.6 g/dL (13.5-17.5); Lymphocytes Absolute Auto 1000 /uL (1100-4500); Lymphocytes Percent Auto 9.5 % (25-40); Mean Corpuscular HGB Conc 32.3 % (30-36); Mean Corpuscular Hemoglobin 24.9 PG (26-34); Mean Corpuscular Volume 77.1 fL (80-100); Monocytes Absolute Auto 700 /uL (0-900); Monocytes Percent Auto 6.5 % (3-14); Neutrophils Absolute Auto 8800 /uL (1500-7000); Neutrophils Percent Auto 83.8 % (50-75); Platelet Count 287 X10^3/uL (150-400); Red Blood Cell Count 4.24 X10^6/uL (4.5-5.9); Red Cell Distribution Width 19.1 % (11.6-14.8); White Blood Cell Count 10.5 X10^3/uL (4.5-11.0)
[2021-10-12 05:56] LABS: BUN Creatinine Ratio 22.3 (6-22); Blood Urea Nitrogen 31 mg/dL (9-20); Calcium 10.4 mg/dL (8.4-10.2); Carbon Dioxide 34 mmol/L (22-32); Chloride 101 mmol/L (98-107); Estimated Glomerular Filt Rate 49.3 mL/min (>60); Glucose 120 mg/dL (80-110); HEMOLYSIS < 15 (0-50); Potassium 3.4 mmol/L (3.4-5.1); Sodium 137 mmol/L (137-145)
[2021-10-12] MEDS: predniSONE 20 MG TABLET 40 MG PO (08:29)
[2021-10-12] MEDS: FUROSEMIDE 40 MG/4 ML VIAL IV (08:30)
--- NOTE | 2021-10-12 08:52 | CM.DANOTE ---
DCP: Case received, EMR reviewed and met with patient. Introduced self and role. Was able to obtain information regarding patient's baseline activity status prior to hospitalization. DCP assessment completed with information currently available. Patient is a 80 year old male who admitted yesterday morning to the care of the hospitalist team. PCP: Dr. Campbell. Payer: confirmed: [employer]age. Patient came to the hospital via private vehicle secondary to having some increased shortness of breath. Patient has history of GI Bleed, as well as atrial fib and atrial flutter. Patient was diagnosed with acute hypoxemic respiratory failure with pneumonia and acute CHF exacerbation. Patient is supposed to have an echo today. Met with patient in his room. He is currently on oxygen, does not use at home. He resides in [facility] with his spouse, Breanna. He is independent, but does have a cane and walker for home use. P: DCP to continue to follow for any needs. Meenakshi Patterson RN/Retail Salesworker Discharge Planning/Care Management Advanced directive, confirm from FAMILY Start: 10/11/21 10:14 Freq: Q24H Status: Active Protocol: Document 10/11/21 10:14 EM (Rec: 10/11/21 10:14 EM [id number]) Advance Directive, confirm on record Time 10:14 Person contacted Breanna Copy received No CM Discharge Assessment Start: 10/12/21 08:42 Freq: Status: Active Protocol: Document 10/12/21 08:42 (Rec: 10/12/21 08:52 [id number]) Discharge Planning Assessment Assigned Tongue Presser Meenakshi Patterson RN/Retail Salesworker Advance Directives? Yes Advance Directives on File No History Provided By Patient,Medical Record Household Members spouse Type of transporation used prior to Drives own vehicle admit Independent with ADL's Yes Is patient alert and oriented? Yes Caregiver for Another No DME Already Rented / Owned FWW / Walker,Cane Barriers to Discharge No Discharge Plan Home Transportation Arrangement Spouse? Referrals Initiated None needed Whiteboard Updated in Patient Room with Yes name and ext. # of Tongue Presser Review Status In Process Next Review Type Continued Stay Review
[2021-10-12] MEDS: POTASSIUM CHLORIDE 20 MEQ TAB 40 MEQ PO (10:32)
--- NOTE | 2021-10-12 12:10 | P.PN_ITS ---
Subjective Subjective Date Patient Seen: 10/12/21 Time Patient Seen: 08:00 Interval history: Today he feels improved. He has not got out of bed, but at rest feels no shortness of breath. When turning off his oxygen he quickly desats to the 80s. Exam Vital Signs (past 8 hours): - 10/12/21 06:55 10/12/21 07:00 10/12/21 08:21 Temperature 97.0 F L Pulse Rate 57 L 56 L Respiratory Rate 19 18 Blood Pressure 122/56 L Pulse Oximetry 93 92 94 10/12/21 11:00 Temperature 97.4 F L Pulse Rate 53 L Respiratory Rate 21 Blood Pressure 127/68 Pulse Oximetry 92 Fraction of Inspired Oxygen 40 Oxygen Delivery Method Nasal Cannula Oxygen Flow Rate 2 Narrative Exam Narrative: GEN: no acute distress HEENT: moist mucous membranes, PERRL NECK: trachea midline, no JVD CV: regular rate and rhythm, no murmurs PULM: crackles bilaterally, greater at right lung base, no wheezes ABD: soft, nontender, nondistended, no organomegaly, normal bowel sounds EXT: warm and well perfused with no edema NEURO: awake, alert, oriented, no focal deficits Objective Labs Result Diagrams: 10/12/21 04:52 10/12/21 04:52 Labs: Laboratory Results - last 24 hr 10/11/21 10/12/21 10/12/21 21:57 04:52 04:52 WBC 10.5 RBC 4.24 L Hgb 10.6 L Hct 32.7 L MCV 77.1 L MCH 24.9 L MCHC 32.3 RDW 19.1 H Plt Count 287 Neut % (Auto) 83.8 H Lymph % (Auto) 9.5 L Harlan % (Auto) 6.5 Eos % (Auto) 0.1 L Baso % (Auto) 0.1 Neut # (Auto) 8800 H Lymph # (Auto) 1000 L Harlan # (Auto) 700 Eos # (Auto) 0 Baso # (Auto) 0 Sodium 137 Potassium 3.4 Chloride 101 Carbon Dioxide 34 H BUN 31 H Creatinine 1.39 H Estimated GFR 49.3 L BUN/Creatinine Ratio 22.3 H Glucose 120 H Calcium 10.4 H Chlamy pneumoniae PCR Not detected Adenovirus (PCR) Not detected B. pertussis DNA (PCR) Not detected B.parapertussis DNA PCR Not detected Coronavirus OC43 (PCR) Not detected Coronavirus HKU1 (PCR) Not detected Coronavirus 229E (PCR) Not detected SARS-CoV-2 (PCR) Not detected Coronavirus NL63 (PCR) Not detected Human Metapneumovir PCR Not detected Influenza Type A (PCR) Not detected Influenza Type B (PCR) Not detected M. pneumoniae (PCR) Not detected Parainfluenza 1 (PCR) Not detected Parainfluenza 2 (PCR) Not detected Parainfluenza 3 (PCR) Not detected Parainfluenza 4 (PCR) Not detected RSV (PCR) Not detected Entero/Rhino (PCR) Not detected PFSH Medical History Atrial fibrillation Atrial flutter Barretts esophagus CHF (congestive heart failure) Chronic cough Degenerative arthritis GERD (gastroesophageal reflux disease) GI bleed History of cardioversion Iron deficiency anemia Spinal stenosis of lumbar region with neurogenic claudication Surgical History History of coronary angioplasty with insertion of stent Hx of cholecystectomy Hx of tonsillectomy Social History household members: spouse Smoking Status: Never smoker alcohol intake: never Assessment & Plan Assessment & Plan narrative: Mr. Pro is a 80M with PMH CHF, atrial fibrillation, hx GI bleed, aortic stenosis, CAD who presents with shortness of breath and acute hypoxemic respiratory failure. 1. Acute hypoxemic respiratory failure with pneumonia and acute CHF exacerbation -has history of CHF, with elevated BNP and pleural effusions are consistent with acute CHF exacerbation -continue diuresis with lasix -ECHO ordered -additionally has leukocytosis, ground glass opacities, and possible fibrosis -ordered respiratory panel and sputum culture -started on IV ceftriaxone and azithromycin -blood cultures pending 2. Possible UIP -follow up high res CT scan shows concern for possible UIP with possible infectious etiology as well -have some concern for possible pulmonary toxicity from amiodarone, will stop this medication for now and start prednisone -may need weight loss consultant as outpatient 3. Eosinophilia, resolved -absolute count of 2600 -continue to trend, fo;llow up completely resolved -unclear if this is related to etiology of presentation -hold steroids for now -high rest CT pulmonary for further eval -may need further infectious workup for causes of eosinophilia 4. ARANZA -on admission creatinine 1.56, improved to 1.39 -continue to trend daily -did diurese well today, continue lasix -avoid nephrotoxins, but did get CTA in ED 5. Aortic stenosis -keep euvolemic as able 6. Atrial fibrillation, paroxysmal -hold amiodarone and metoprolol for now, patient still bradycardic -will restart at lower doses -continue xarelto 6. CAD -continue home medications, with atorvastatin CODE: DNR Proxy: Spouse, Breanna I have utilized all available resources to reconcile the patient's home medications. Time Spent With Patient Critical Care time: I spent a total of [] minutes of critical care time on this patient's care today; this time is exclusive of procedural time.
[2021-10-12] MEDS: AZITHROMYCIN 500 MG in DEXTROSE 5% IN WATER 250 ML IV (12:21)
[2021-10-12] MEDS: cefTRIAXone 1,000 MG in SODIUM CHLORIDE 0.9% 100 ML 200 ML IV (15:29)
[2021-10-13] VITALS (15 sets, daily range): BP systolic 100–146; BP diastolic 60–79; PULSE 58–78; RESP 16–21; TEMP 36.4–36.9; O2SAT 92–98
[2021-10-13 05:22] LABS: Hematocrit 33.4 % (41-53); Hemoglobin 10.7 g/dL (13.5-17.5); Mean Corpuscular HGB Conc 32.1 % (30-36); Mean Corpuscular Hemoglobin 24.8 PG (26-34); Mean Corpuscular Volume 77.4 fL (80-100); Platelet Count 297 X10^3/uL (150-400); Red Blood Cell Count 4.32 X10^6/uL (4.5-5.9); Red Cell Distribution Width 19.4 % (11.6-14.8); White Blood Cell Count 12.7 X10^3/uL (4.5-11.0)
[2021-10-13 05:31] LABS: BUN Creatinine Ratio 27.1 (6-22); Blood Urea Nitrogen 39 mg/dL (9-20); Carbon Dioxide 33 mmol/L (22-32); Chloride 101 mmol/L (98-107); Estimated Glomerular Filt Rate 47.3 mL/min (>60); Glucose 102 mg/dL (80-110); HEMOLYSIS < 15 (0-50); Sodium 137 mmol/L (137-145)
[2021-10-13 05:59] LABS: Neutrophils Absolute Manual 8001 /uL (3000-5900); Total Cells Counted 100
[2021-10-13 06:01] LABS: Anisocytosis 1+
[2021-10-13] MEDS: ATORVASTATIN 20 MG TABLET 40 MG PO (09:09)
[2021-10-13] MEDS: AZITHROMYCIN 500 MG in DEXTROSE 5% IN WATER 250 ML IV (09:09)
[2021-10-13] MEDS: FUROSEMIDE 40 MG/4 ML VIAL IV (09:09)
[2021-10-13] MEDS: RIVAROXABAN 10 MG TABLET 20 MG PO (09:09)
[2021-10-13] MEDS: predniSONE 20 MG TABLET 40 MG PO (09:09)
[2021-10-13] MEDS: cefTRIAXone 1,000 MG in SODIUM CHLORIDE 0.9% 100 ML 200 ML IV (11:14)
--- NOTE | 2021-10-13 12:26 | CM.DPC ---
DCP Cont: Met with patient in his room. He has oxygen in place currently. He 'hopes to get home soon. He continues to need oxygen. He asked if there was a bible available, since watching television is so stressful. Nurse was able to get a bible from patrol conductor. Asked him about his coming to see him, stated, he has been talking to her on the phone. Discussed patient briefly during team rounds, asked if P.T. would be appropriate, and he indicated, he has to see patient first. P: DCP to continue to follow for any needs. Meenakshi Patterson, LAXMI/R[employer]
--- NOTE | 2021-10-13 17:50 | PM.PN.1 ---
Subjective Subjective Date Patient Seen: 10/13/21 Time Patient Seen: 17:51 Interval history: Today he feels improved. He has not got out of bed, but at rest feels no shortness of breath. When turning off his oxygen he quickly desats to the 80s with minimal exertion today. Exam Vital Signs (past 8 hours): - 10/13/21 10:00 10/13/21 10:51 10/13/21 10:52 Temperature 97.9 F Pulse Rate 67 Respiratory Rate 21 Blood Pressure 100/60 Pulse Oximetry 95 97 95 10/13/21 11:06 10/13/21 13:53 10/13/21 15:00 Temperature 98.0 F Pulse Rate 67 78 Respiratory Rate 18 21 Blood Pressure 120/60 Pulse Oximetry 95 94 Fraction of Inspired Oxygen 40 Oxygen Delivery Method Nasal Cannula Oxygen Flow Rate 1 Narrative Exam Narrative: GEN: no acute distress HEENT: moist mucous membranes, PERRL NECK: trachea midline, no JVD CV: regular rate and rhythm, no murmurs PULM: crackles bilaterally, greater at right lung base, no wheezes ABD: soft, nontender, nondistended, no organomegaly, normal bowel sounds EXT: warm and well perfused with no edema NEURO: awake, alert, oriented, no focal deficits Objective Labs Result Diagrams: 10/13/21 04:54 10/13/21 04:54 Labs: Laboratory Results - last 24 hr 10/13/21 10/13/21 04:54 04:54 WBC 12.7 H RBC 4.32 L Hgb 10.7 L Hct 33.4 L MCV 77.4 L MCH 24.8 L MCHC 32.1 RDW 19.4 H Plt Count 297 Total Counted 100 Seg Neutrophils % 58.0 Band Neutrophils % 5.0 Lymphocytes % (Manual) 15.0 L Monocytes % (Manual) 9.0 Eosinophils % (Manual) 13.0 H Neutrophils # (Manual) 8001 H RBC Morphology See below Anisocytosis 1+ H Sodium 137 Potassium 4.0 Chloride 101 Carbon Dioxide 33 H BUN 39 H Creatinine 1.44 H Estimated GFR 47.3 L BUN/Creatinine Ratio 27.1 H Glucose 102 Calcium 10.0 PFSH Medical History Atrial fibrillation Atrial flutter Barretts esophagus CHF (congestive heart failure) Chronic cough Degenerative arthritis GERD (gastroesophageal reflux disease) GI bleed History of cardioversion Iron deficiency anemia Spinal stenosis of lumbar region with neurogenic claudication Surgical History History of coronary angioplasty with insertion of stent Hx of cholecystectomy Hx of tonsillectomy Social History household members: spouse Smoking Status: Never smoker alcohol intake: never Assessment & Plan Assessment & Plan narrative: Mr. Pro is a 80M with PMH CHF, atrial fibrillation, hx GI bleed, aortic stenosis, CAD who presents with shortness of breath and acute hypoxemic respiratory failure. 1. Acute hypoxemic respiratory failure with pneumonia and acute CHF exacerbation -has history of CHF, with elevated BNP and pleural effusions are consistent with acute CHF exacerbation -continue diuresis with lasix -ECHO with normal EF but appeared volume overloaded. -additionally has leukocytosis, ground glass opacities, and possible fibrosis -ordered respiratory panel and sputum culture, negative -started on IV ceftriaxone and azithromycin -blood cultures without growth - may need to discharge home with O2 if no significant improvement. 2. 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 Eosinophilia, resolved -absolute count of 2600 -unclear if this is related to etiology of presentation 4. ARANZA -on admission creatinine 1.56, improved to 1.39 but stable today. -continue to trend daily -did diurese well, continue lasix -avoid nephrotoxins, but did get CTA in ED 5. Aortic stenosis -keep euvolemic as able 6. Atrial fibrillation, paroxysmal -hold amiodarone and metoprolol for now, patient still bradycardic -will restart at lower doses if needed. -continue xarelto 6. CAD -continue home medications, with atorvastatin CODE: DNR Proxy: Spouse, Breanna I have utilized all available resources to reconcile the patient's home medications. Time Spent With Patient Critical Care time: I spent a total of [] minutes of critical care time on this patient's care today; this time is exclusive of procedural time.
[2021-10-13] MEDS: SODIUM CHLORIDE 0.9% FLUSH 10 ML IV (22:06)
[2021-10-14] VITALS (14 sets, daily range): BP systolic 90–140; BP diastolic 52–74; PULSE 50–101; RESP 16–22; TEMP 36.1–36.8; O2SAT 91–98
[2021-10-14 05:27] LABS: Add Manual Diff / Slide Review NO; Basophils Absolute Auto 0 /uL (0-100); Basophils Percent Auto 0.1 % (0-2); Eosinophils Absolute Auto 0 /uL (0-450); Hematocrit 33.4 % (41-53); Hemoglobin 10.9 g/dL (13.5-17.5); Lymphocytes Absolute Auto 1100 /uL (1100-4500); Lymphocytes Percent Auto 10.4 % (25-40); Mean Corpuscular HGB Conc 32.5 % (30-36); Mean Corpuscular Hemoglobin 24.9 PG (26-34); Mean Corpuscular Volume 76.7 fL (80-100); Monocytes Absolute Auto 700 /uL (0-900); Monocytes Percent Auto 6.5 % (3-14); Neutrophils Absolute Auto 8400 /uL (1500-7000); Platelet Count 292 X10^3/uL (150-400); Red Blood Cell Count 4.36 X10^6/uL (4.5-5.9); White Blood Cell Count 10.1 X10^3/uL (4.5-11.0)
[2021-10-14 05:44] LABS: BUN Creatinine Ratio 33.1 (6-22); Blood Urea Nitrogen 46 mg/dL (9-20); Calcium 9.7 mg/dL (8.4-10.2); Carbon Dioxide 35 mmol/L (22-32); Chloride 101 mmol/L (98-107); Estimated Glomerular Filt Rate 49.3 mL/min (>60); Glucose 103 mg/dL (80-110); HEMOLYSIS < 15 (0-50); Magnesium 1.9 mg/dL (1.6-2.3); Sodium 136 mmol/L (137-145)
[2021-10-14] MEDS: FUROSEMIDE 40 MG/4 ML VIAL IV (09:12)
[2021-10-14] MEDS: predniSONE 20 MG TABLET 40 MG PO (09:12)
[2021-10-14] MEDS: ATORVASTATIN 20 MG TABLET 40 MG PO (09:12)
[2021-10-14] MEDS: RIVAROXABAN 10 MG TABLET 20 MG PO (09:12)
[2021-10-14] MEDS: SODIUM CHLORIDE 0.9% FLUSH 10 ML IV ×2 (09:13→21:26)
[2021-10-14] MEDS: AZITHROMYCIN 500 MG in DEXTROSE 5% IN WATER 250 ML IV (10:15)
--- NOTE | 2021-10-14 11:15 | PT.IIE ---
Current Diagnoses Acute respiratory failure with hypoxia (10/11/21) Medical History (Last Reviewed 10/11/21 @ 18:22 by Raymond Babcock MD) Atrial fibrillation Atrial flutter Barretts esophagus CHF (congestive heart failure) Chronic cough Degenerative arthritis GERD (gastroesophageal reflux disease) GI bleed History of cardioversion Iron deficiency anemia Spinal stenosis of lumbar region with neurogenic claudication Physical Therapy Inpatient Evaluation/Re-Eval M1 PT/OT-IP Prior Functional Status Start: 10/14/21 13:10 Freq: NEEDED Status: Active Protocol: Document 10/14/21 11:15 AB (Rec: 10/14/21 13:20 AB [id number]) Medical Review Prior Functional Status Medical History Reviewed Yes Communication able to make needs known Mobility and Gait pt stated that he is modified independent witha ll mobiltiies and ambulation using 4WW Social History Household Members spouse Living Arrangements House Number of Floors (Floors) One Floor Number of Stairs To Enter/Railing? pt has a sunken living room with 3 steps R rail ascending Home Environment Standard Height Toilet,Tub/ Shower Home Equipment Four Wheel Walker,Tub Transfer Bench,Hand Held Shower,Grab Bars Near Toilet,Grab Bars In Shower Additional Social History Comment pt has an adjustable bed M2 PT-IP Current Condition Start: 10/14/21 13:10 Freq: NEEDED Status: Active Protocol: Document 10/14/21 11:15 AB (Rec: 10/14/21 13:20 AB [email or web address]) Physical Therapy Current Condition Current Condition Evaluation Date 10/14/21 Treatment Diagnosis CHF; difficulty in walking Onset Date 10/11/21 M3 PT-IP Subjective Start: 10/14/21 13:10 Freq: NEEDED Status: Active Protocol: Document 10/14/21 11:15 AB (Rec: 10/14/21 13:20 AB [email or web address]) Subjective Physical Therapy Visit Type Type Initial Evaluation Visit Start Time 11:15 Visit Stop Time 11:45 Total Visit Minutes 30 Number of MANAGER DELIVERY Visits 0 Physical Therapy Visit Comments Patient Comments agreeable to do PT Therapy Pain Assessment Pain Present Pain Present Denied Pain M4 PT-IP Mobility and Gait Start: 10/14/21 13:10 Freq: NEEDED Status: Active Protocol: Document 10/14/21 11:15 AB (Rec: 10/14/21 13:20 AB [email or web address]) PT-Transfer Assessment Sit to and From Stand Sit to and from Stand Minimal Assistance,1 Person Assistance,Use of Upper Extremities Equipment Transfer Assistive Device Gait Belt,Front Wheeled Walker Orthotic/Prosthetic Devices or Brace: No Comments Mobility Comments pt sitting on chair and requested to use the urinal. completed sit to stand min A and required min A for standing balance using FWW for support while pt use the urinal. pt sat back down. O2 sat at rest: 92% but decreased to 81% after standing. increased to ~ 90% after 5 min and cued with deep breathing. pt agreed to ambulate. completed sit to stand min A and ambulated ~ 2 ft using FWW initially min A but mod A towards end of ambulation. max A for controlled descend to chair. o2 sat 78%. cued for deep breathing. O2 sat increased to 83% but continues to stay at ~ 84-85% even after >5 min of resting seated on chair. positioned pt on chair. call light and table placed within reach. nurse is aware of O2 sat. pt currently is on 4L/ min O2. Gait Assessment Gait Gait Assistance Required: Minimum Assistance,Moderate Assistance Distance (Feet) 2 Able to Maintain Weight Bearing Status Yes During Gait Assistive Devices Assistive Device Gait Belt,Front Wheeled Walker Orthotic/Prosthetic Devices or Brace: No Gait Deviations General Gait Pattern Decreased Stride Length, Decreased Feet Clearance, Flexed Trunk Factors Limiting Gait Function Factors Limiting Gait Function Decreased Activity Tolerance, Decreased Strength,Difficulty Following Directions,Limited Range of Motion,Pain,Poor Balance,Poor Safety Awareness, Respiratory Distress PT-Balance Assessment Sitting Balance and Reactions Static Sitting Balance Ability Good Dynamic Sitting Balance Ability Good Standing Balance and Reactions Static Standing Balance Ability Fair Dynamic Standing Balance Ability Fair Device Used FWW M5 PT-IP Objective Assessments Start: 10/14/21 13:10 Freq: NEEDED Status: Active Protocol: Document 10/14/21 11:15 AB (Rec: 10/14/21 13:20 AB [email or web address]) Orientation Orientation/Cognition Level of Alertness Alert Orientation Name,Place,Situation Language Function Ability No Deficits Noted Safety Awareness Decreased Safety Awareness Memory Description Short Term Impaired Gross Range of Motion Lower Extremity ROM Assessment Within Functional Limits Strength Lower Extremity Strength Hip 4-/5 Knee 4-/5 Coordination Assessment Gross Coordination Gross Coordination WNL Sensation Assessment Sensation Gross Sensation WNL Muscle Tone Muscle Tone WNL Yes M6 PT-IP Treatment Start: 10/14/21 13:10 Freq: NEEDED Status: Active Protocol: Document 10/14/21 11:15 AB (Rec: 10/14/21 13:20 AB [email or web address]) Physical Therapy Treatment Education Education Provided Safety M7 PT-IP Assessment and Plan Start: 10/14/21 13:10 Freq: NEEDED Status: Active Protocol: Document 10/14/21 11:15 AB (Rec: 10/14/21 13:20 AB [email or web address]) PT Summary Assessment and Plan Potential Rehabilitation Potential Fair Status of Condition at Evaluation Evolving Summary Impairments Pain,ROM,Strength,Balance, Coordination,Sensation,Tone, Cognition,Bed Mobility, Transfers,Gait,Activity Tolerance Assessment Summary pt requiring min A to mod A with mobiltiy using FWW but has decrease activity tolerance with decrease in O2 sat to 78% with ambulation at 4L/min O2. will continue to assess progress but at this time, pt may require SNF rehab to improve overall activity tolerance and strength to improve mobility independence. Goals Bed Mobility Goal Standby Assistance Transfer Goal Standby Assistance,Front Wheeled Walker Gait Goal Standby Assistance,Front Wheel Walker Gait Distance 200 Other Goals up/down 3 steps R rail ascending SBA Days to Meet Goals 10 Frequency of Treatment Frequency Of Treatment Once a Day Treatment Plan Physical Therapy Treatment Plan Bed Mobility Training,Transfer Training,Gait Training, Therapeutic Exercise,Balance Retraining,Post Op Education, Discharge Planning,Hot or Cold Pack,Neuromuscular Re-ed, Coordination Retraining,Manual Therapy Precautions Other Precautions O2 sat Recommendations To Nursing Amount of Assist Needed 1 Person Assist Discharge Recommendations PT Discharge Recommendations SNF Rehab Transportation Needs at Discharge Wheelchair/Cabulance
[2021-10-14] MEDS: cefTRIAXone 1,000 MG in SODIUM CHLORIDE 0.9% 100 ML 200 ML IV (11:29)
--- NOTE | 2021-10-14 16:47 | PM.PN.1 ---
Subjective Subjective Date Patient Seen: 10/14/21 Time Patient Seen: 16:47 Interval history: Today he feels improved and perky. Started with PT today. When turning off his oxygen he quickly desats to the 80s with minimal exertion still. Exam Vital Signs (past 8 hours): - 10/14/21 10:00 10/14/21 11:32 10/14/21 13:30 Pulse Rate 101 H Respiratory Rate 20 Blood Pressure 93/52 L Pulse Oximetry 92 91 10/14/21 14:00 Pulse Rate Respiratory Rate Blood Pressure Pulse Oximetry 94 Fraction of Inspired Oxygen 40 Oxygen Delivery Method Nasal Cannula Oxygen Flow Rate 2 Narrative Exam Narrative: GEN: no acute distress HEENT: moist mucous membranes, PERRL NECK: trachea midline, no JVD CV: regular rate and rhythm, no murmurs PULM: crackles bilaterally, greater at right lung base, no wheezes ABD: soft, nontender, nondistended, no organomegaly, normal bowel sounds EXT: warm and well perfused with no edema NEURO: awake, alert, oriented, no focal deficits Objective Labs Result Diagrams: 10/14/21 04:38 10/14/21 04:38 Labs: Laboratory Results - last 24 hr 10/14/21 10/14/21 04:38 04:38 WBC 10.1 RBC 4.36 L Hgb 10.9 L Hct 33.4 L MCV 76.7 L MCH 24.9 L MCHC 32.5 RDW 19.0 H Plt Count 292 Neut % (Auto) 83.0 H Lymph % (Auto) 10.4 L [place] % (Auto) 6.5 Eos % (Auto) 0.0 L Baso % (Auto) 0.1 Neut # (Auto) 8400 H Lymph # (Auto) 1100 [place] # (Auto) 700 Eos # (Auto) 0 Baso # (Auto) 0 Sodium 136 L Potassium 4.0 Chloride 101 Carbon Dioxide 35 H BUN 46 H Creatinine 1.39 H Estimated GFR 49.3 L BUN/Creatinine Ratio 33.1 H Glucose 103 Calcium 9.7 Magnesium 1.9 PFSH Medical History Atrial fibrillation Atrial flutter Barretts esophagus CHF (congestive heart failure) Chronic cough Degenerative arthritis GERD (gastroesophageal reflux disease) GI bleed History of cardioversion Iron deficiency anemia Spinal stenosis of lumbar region with neurogenic claudication Surgical History History of coronary angioplasty with insertion of stent Hx of cholecystectomy Hx of tonsillectomy Social History household members: spouse Smoking Status: Never smoker alcohol intake: never Assessment & Plan Assessment & Plan narrative: Mr. Pro is a 80M with PMH CHF, atrial fibrillation, hx GI bleed, aortic stenosis, CAD who presents with shortness of breath and acute hypoxemic respiratory failure. 1. Acute hypoxemic respiratory failure with pneumonia and acute CHF exacerbation -has history of CHF, with elevated BNP and pleural effusions are consistent with acute CHF exacerbation. However he has not had much improvement with continued diuresis. -continue diuresis with lasix -ECHO with normal EF but appeared volume overloaded. -additionally has leukocytosis, ground glass opacities, and possible fibrosis. started on prednisone but will increase from 40 to 60 mg for either amiodarone toxicity or possible flare of IPF/UIP. -ordered respiratory panel and sputum culture, negative -started on IV ceftriaxone and azithromycin, continue treatment x5 days. -blood cultures without growth -may need to discharge home with O2 if no significant improvement with antibiotics or increased steroids. 2. 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 -may need medical malpractice paralegal as outpatient 3. Eosinophilia, resolved -absolute count of 2600 -unclear if this is related to etiology of presentation 4. ARANZA -on admission creatinine 1.56, improved to 1.39 but stable today. -continue to trend daily -did diurese well, continue lasix -avoid nephrotoxins, but did get CTA in ED 5. Aortic stenosis -keep euvolemic as able 6. Atrial fibrillation, paroxysmal -hold amiodarone and metoprolol for now. now slightly tachycardic but soft BP. -will restart at lower doses if needed. -continue xarelto 6. CAD -continue home medications, with atorvastatin CODE: DNR Proxy: Spouse, Breanna I have utilized all available resources to reconcile the patient's home medications. Time Spent With Patient Critical Care time: I spent a total of [] minutes of critical care time on this patient's care today; this time is exclusive of procedural time.
[2021-10-15] VITALS (14 sets, daily range): BP systolic 92–153; BP diastolic 55–75; PULSE 50–74; RESP 18–20; TEMP 35.9–36.7; O2SAT 93–98
[2021-10-15 06:17] LABS: Add Manual Diff / Slide Review NO; Basophils Absolute Auto 0 /uL (0-100); Basophils Percent Auto 0.2 % (0-2); Eosinophils Absolute Auto 0 /uL (0-450); Eosinophils Percent Auto 0.1 % (2-4); Hematocrit 32.4 % (41-53); Hemoglobin 10.5 g/dL (13.5-17.5); Lymphocytes Absolute Auto 1100 /uL (1100-4500); Lymphocytes Percent Auto 12.5 % (25-40); Mean Corpuscular HGB Conc 32.4 % (30-36); Mean Corpuscular Hemoglobin 24.8 PG (26-34); Mean Corpuscular Volume 76.8 fL (80-100); Monocytes Absolute Auto 900 /uL (0-900); Monocytes Percent Auto 9.8 % (3-14); Neutrophils Absolute Auto 7100 /uL (1500-7000); Neutrophils Percent Auto 77.4 % (50-75); Platelet Count 267 X10^3/uL (150-400); Red Blood Cell Count 4.22 X10^6/uL (4.5-5.9); Red Cell Distribution Width 19.2 % (11.6-14.8); White Blood Cell Count 9.2 X10^3/uL (4.5-11.0)
[2021-10-15 06:32] LABS: BUN Creatinine Ratio 36.6 (6-22); Blood Urea Nitrogen 49 mg/dL (9-20); Calcium 9.4 mg/dL (8.4-10.2); Carbon Dioxide 33 mmol/L (22-32); Chloride 100 mmol/L (98-107); Estimated Glomerular Filt Rate 51.4 mL/min (>60); Glucose 102 mg/dL (80-110); HEMOLYSIS < 15 (0-50); Magnesium 1.9 mg/dL (1.6-2.3); Potassium 4.2 mmol/L (3.4-5.1); Sodium 136 mmol/L (137-145)
[2021-10-15] MEDS: RIVAROXABAN 10 MG TABLET 20 MG PO (09:23)
[2021-10-15] MEDS: predniSONE 20 MG TABLET 60 MG PO (09:24)
[2021-10-15] MEDS: ATORVASTATIN 20 MG TABLET 40 MG PO (09:24)
[2021-10-15] MEDS: FUROSEMIDE 40 MG/4 ML VIAL IV (09:24)
[2021-10-15] MEDS: AZITHROMYCIN 500 MG in DEXTROSE 5% IN WATER 250 ML IV (09:24)
[2021-10-15] MEDS: SODIUM CHLORIDE 0.9% FLUSH 10 ML IV ×2 (09:29→20:11)
[2021-10-15] MEDS: cefTRIAXone 1,000 MG in SODIUM CHLORIDE 0.9% 100 ML 200 ML IV (11:20)
--- NOTE | 2021-10-15 12:17 | CM.DPC ---
Discharge Plan Continued: Conversation with patient today regarding PT rec to SNF. Patient prefers to discharge home stating he can Scoot around in a wheelchair and that they are adapting the home to be more accessible to him using a wc. Patient reported his main concern is O2 use at home. Patient declining SNF at this time. Patient requests [facility] set up as he has used them before. Patient reported he felt like his arm strength and leg strength were fairly close to baseline. TRANSMISSION SUPERVISOR spoke with Salima at [facility]. Clinicals faxed for her review. She reported they have room to open up with him and can accept his insurance. Patient will need wheelchair. Patient will need RT to set up home O2. Bryon COLE
--- NOTE | 2021-10-15 13:35 | P.PN_ITS ---
Subjective Subjective Date Patient Seen: 10/15/21 Time Patient Seen: 13:36 Interval history: Today he feels well. Still short of breath with minimal exertion. Recommended for SNF but patient would like to go home. Recently changed to Dr. Pineda as his PCP. Exam Vital Signs (past 8 hours): - 10/15/21 06:00 10/15/21 08:10 10/15/21 09:52 Temperature 97.4 F L Pulse Rate 57 L Respiratory Rate 20 Blood Pressure 124/63 Pulse Oximetry 98 96 93 10/15/21 10:00 10/15/21 12:05 Temperature 97.4 F L Pulse Rate 57 L Respiratory Rate 18 Blood Pressure 92/57 L Pulse Oximetry 95 95 Fraction of Inspired Oxygen 40 Oxygen Delivery Method Nasal Cannula Oxygen Flow Rate 1 Narrative Exam Narrative: GEN: no acute distress HEENT: moist mucous membranes, PERRL NECK: trachea midline, no JVD CV: regular rate and rhythm, no murmurs PULM: crackles bilaterally, greater at right lung base, no wheezes ABD: soft, nontender, nondistended, no organomegaly, normal bowel sounds EXT: warm and well perfused with no edema NEURO: awake, alert, oriented, no focal deficits Objective Labs Result Diagrams: 10/15/21 05:54 10/15/21 05:54 Labs: Laboratory Results - last 24 hr 10/15/21 10/15/21 05:54 05:54 WBC 9.2 RBC 4.22 L Hgb 10.5 L Hct 32.4 L MCV 76.8 L MCH 24.8 L MCHC 32.4 RDW 19.2 H Plt Count 267 Neut % (Auto) 77.4 H Lymph % (Auto) 12.5 L [place] % (Auto) 9.8 Eos % (Auto) 0.1 L Baso % (Auto) 0.2 Neut # (Auto) 7100 H Lymph # (Auto) 1100 [place] # (Auto) 900 Eos # (Auto) 0 Baso # (Auto) 0 Sodium 136 L Potassium 4.2 Chloride 100 Carbon Dioxide 33 H BUN 49 H Creatinine 1.34 H Estimated GFR 51.4 L BUN/Creatinine Ratio 36.6 H Glucose 102 Calcium 9.4 Magnesium 1.9 PFSH Medical History Atrial fibrillation Atrial flutter Barretts esophagus CHF (congestive heart failure) Chronic cough Degenerative arthritis GERD (gastroesophageal reflux disease) GI bleed History of cardioversion Iron deficiency anemia Spinal stenosis of lumbar region with neurogenic claudication Surgical History History of coronary angioplasty with insertion of stent Hx of cholecystectomy Hx of tonsillectomy Social History household members: spouse Smoking Status: Never smoker alcohol intake: never Assessment & Plan Assessment & Plan narrative: Mr. Pro is a 80M with PMH CHF, atrial fibrillation, hx GI bleed, aortic stenosis, CAD who presents with shortness of breath and acute hypoxemic respiratory failure. 1. Acute hypoxemic respiratory failure with pneumonia and acute diastolic CHF exacerbation -has history of CHF, with elevated BNP and pleural effusions are consistent with acute CHF exacerbation. However he has not had much improvement with continued diuresis. -will change to oral lasix tomorrow. -ECHO with normal EF but appeared volume overloaded. -additionally has leukocytosis, ground glass opacities, and possible fibrosis. started on prednisone but increased from 40 to 60 mg for either amiodarone toxicity or possible flare of IPF/UIP. -ordered respiratory panel and sputum culture, negative -started on IV ceftriaxone and azithromycin, continued treatment x5 days. -blood cultures without growth -will work to discharge home tomorrow with home oxygen. 2. 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 -may need vp revenue cycle as outpatient 3. Eosinophilia, resolved -absolute count of 2600 -unclear if this is related to etiology of presentation, may fit with amiodarone induced etiology. 4. ARANZA -on admission creatinine 1.56, improved to 1.34. -continue to trend daily -did diurese well, continue lasix -avoid nephrotoxins, but did get CTA in ED 5. Aortic stenosis -keep euvolemic as able 6. Atrial fibrillation, paroxysmal -hold amiodarone and metoprolol for now. rate currently controlled and BP is soft. -will restart at lower doses if needed. -continue xarelto 6. CAD -continue home medications, with atorvastatin CODE: DNR Proxy: Spouse, Breanna I have utilized all available resources to reconcile the patient's home me dications. Time Spent With Patient Critical Care time: I spent a total of [] minutes of critical care time on this patient's care today; this time is exclusive of procedural time.
--- NOTE | 2021-10-15 14:35 | PT.IPTN ---
Current Diagnoses Acute respiratory failure with hypoxia (10/11/21) Physical Therapy Treatment Note M2 PT-IP Current Condition Start: 10/14/21 13:10 Freq: NEEDED Status: Active Protocol: Document 10/14/21 11:15 AB (Rec: 10/14/21 13:20 AB [email or web address]) Physical Therapy Current Condition Current Condition Evaluation Date 10/14/21 Treatment Diagnosis CHF; difficulty in walking Onset Date 10/11/21 M3 PT-IP Subjective Start: 10/14/21 13:10 Freq: NEEDED Status: Active Protocol: Document 10/15/21 14:35 AB (Rec: 10/15/21 16:34 AB [id number]) Subjective Physical Therapy Visit Type Type Treatment Note Visit Start Time 14:35 Visit Stop Time 15:10 Total Visit Minutes 35 Number of PRINCIPAL BIOSTATISTICIAN Visits 0 Physical Therapy Visit Comments Patient Comments pt agreeable to do PT Therapy Pain Assessment Pain Present Pain Present Denied Pain M4 PT-IP Mobility and Gait Start: 10/14/21 13:10 Freq: NEEDED Status: Active Protocol: Document 10/15/21 14:35 AB (Rec: 10/15/21 16:34 AB [email or web address]) PT-Transfer Assessment Sit to and From Stand Sit to and from Stand Minimal Assistance,Moderate Assistance,1 Person Assistance ,Use of Upper Extremities Equipment Transfer Assistive Device Gait Belt,Front Wheeled Walker Transfers Transfer Destination Chair Transfer Technique ambulation Transfer Ability Level of Assist Moderate Assistance,Maximum Assistance,1 Person Assistance Comments Mobility Comments pt sitting on chair and agreed to do PT. O2 sat with 2L/min O2 at 96%. pt completed sit to stand from chair min A and ambulated ~ 12 ft using FWW and has to sit down initially min A but mod A towards end of ambulation with pt increase trunk flexion and B knee flexion. O2 sat decreased to 83%. cued for deep breathing. O2 sat increased to ~ 88-89% in ~ 2-3 min and then ~ 3 more minutes to get to 93%. pt ambulated back towards the chair max A and max cues with increase trunk flexion and knee flexion. pt with very unsteady gait. O2 sat decreased to 84-85% but increased to 93% in ~ 2min and cues for deep breathing. pt agreed to do LE exercises in seated position and completed LAQs, seated marching, ankle DF/PF. positioned pt on chair . call light and table placed within reach. informed nurse regarding O2 sat. Gait Assessment Gait Gait Assistance Required: Moderate Assistance,Maximum Assistance Distance (Feet) 12 Able to Maintain Weight Bearing Status Yes During Gait Assistive Devices Assistive Device Gait Belt,Front Wheeled Walker Orthotic/Prosthetic Devices or Brace: No Gait Deviations General Gait Pattern Decreased Stride Length, Decreased Feet Clearance, Flexed Trunk,Step-to Gait Factors Limiting Gait Function Factors Limiting Gait Function Decreased Activity Tolerance, Decreased Strength,Poor Balance,Poor Safety Awareness, Respiratory Distress M5 PT-IP Objective Assessments Start: 10/14/21 13:10 Freq: NEEDED Status: Active Protocol: Document 10/14/21 11:15 AB (Rec: 10/14/21 13:20 AB [id number]) Orientation Orientation/Cognition Level of Alertness Alert Orientation Name,Place,Situation Language Function Ability No Deficits Noted Safety Awareness Decreased Safety Awareness Memory Description Short Term Impaired Gross Range of Motion Lower Extremity ROM Assessment Within Functional Limits Strength Lower Extremity Strength Hip 4-/5 Knee 4-/5 Coordination Assessment Gross Coordination Gross Coordination WNL Sensation Assessment Sensation Gross Sensation WNL Muscle Tone Muscle Tone WNL Yes M6 PT-IP Treatment Start: 10/14/21 13:10 Freq: NEEDED Status: Active Protocol: Document 10/15/21 14:35 AB (Rec: 10/15/21 16:34 AB [email or web address]) Physical Therapy Treatment Exercises Exercises Ankle Pumps Education Education Provided Safety Other Treatments Other Treatment Performed completed LaQs, seated marching and ankle DF/PF M7 PT-IP Assessment and Plan Start: 10/14/21 13:10 Freq: NEEDED Status: Active Protocol: Document 10/15/21 14:35 AB (Rec: 10/15/21 16:34 AB [email or web address]) PT Summary Assessment and Plan Potential Rehabilitation Potential Fair Summary Impairments Pain,ROM,Strength,Balance, Coordination,Sensation,Tone, Cognition,Bed Mobility, Transfers,Gait,Activity Tolerance Assessment Summary pt continues to have decrease activity tolerance affecting mobility level requiring mod to max A towards end of ambulation. pt stated that he plans to get a w/c for home use and will have HHPT. asked pt if spouse will be able to come for training but stated that spouse does not drive and cannot come for training. will continue to assess progress. Goals Bed Mobility Goal Standby Assistance Transfer Goal Standby Assistance,Front Wheeled Walker Gait Goal Standby Assistance,Front Wheel Walker Gait Distance 200 Other Goals up/down 3 steps R rail ascending SBA Days to Meet Goals 10 Frequency of Treatment Frequency Of Treatment Once a Day Treatment Plan Physical Therapy Treatment Plan Bed Mobility Training,Transfer Training,Gait Training, Therapeutic Exercise,Balance Retraining,Post Op Education, Discharge Planning,Hot or Cold Pack,Neuromuscular Re-ed, Coordination Retraining,Manual Therapy Precautions Other Precautions O2 sat Recommendations To Nursing Amount of Assist Needed 1 Person Assist Discharge Recommendations PT Discharge Recommendations SNF Rehab Transportation Needs at Discharge Wheelchair/Cabulance
[2021-10-16] VITALS (14 sets, daily range): BP systolic 106–140; BP diastolic 59–76; PULSE 61–76; RESP 16–20; TEMP 36.4–36.9; O2SAT 94–99
[2021-10-16 05:57] LABS: Add Manual Diff / Slide Review NO; Basophils Absolute Auto 0 /uL (0-100); Basophils Percent Auto 0.1 % (0-2); Eosinophils Absolute Auto 0 /uL (0-450); Hematocrit 32.2 % (41-53); Hemoglobin 10.2 g/dL (13.5-17.5); Lymphocytes Absolute Auto 1100 /uL (1100-4500); Lymphocytes Percent Auto 9.9 % (25-40); Mean Corpuscular HGB Conc 31.7 % (30-36); Mean Corpuscular Hemoglobin 24.5 PG (26-34); Mean Corpuscular Volume 77.4 fL (80-100); Monocytes Absolute Auto 800 /uL (0-900); Monocytes Percent Auto 7.4 % (3-14); Neutrophils Absolute Auto 9300 /uL (1500-7000); Neutrophils Percent Auto 82.6 % (50-75); Platelet Count 291 X10^3/uL (150-400); Red Blood Cell Count 4.16 X10^6/uL (4.5-5.9); Red Cell Distribution Width 19.3 % (11.6-14.8); White Blood Cell Count 11.2 X10^3/uL (4.5-11.0)
[2021-10-16 06:04] LABS: BUN Creatinine Ratio 40.2 (6-22); Blood Urea Nitrogen 51 mg/dL (9-20); Calcium 9.1 mg/dL (8.4-10.2); Carbon Dioxide 32 mmol/L (22-32); Chloride 102 mmol/L (98-107); Estimated Glomerular Filt Rate 54.7 mL/min (>60); Glucose 100 mg/dL (80-110); HEMOLYSIS < 15 (0-50); Potassium 4.5 mmol/L (3.4-5.1); Sodium 134 mmol/L (137-145)
[2021-10-16] MEDS: ATORVASTATIN 20 MG TABLET 40 MG PO (09:03)
[2021-10-16] MEDS: predniSONE 20 MG TABLET 60 MG PO (09:04)
[2021-10-16] MEDS: RIVAROXABAN 10 MG TABLET 20 MG PO (09:04)
[2021-10-16] MEDS: SODIUM CHLORIDE 0.9% FLUSH 10 ML IV ×2 (09:04→21:28)
[2021-10-16] MEDS: FUROSEMIDE 20 MG TABLET PO (09:04)
--- NOTE | 2021-10-16 12:38 | PC.NURSE ---
Addendum entered by Mary Blanchard R.N. 10/16/21 17:55: Pt sitting in chair. Continues to desat w/any activity. Condition remains essentially unchanged, Call light w/in reach, chair alarm on for pt safety. Continue w/plan of care. Original Note: Pt alert/awake. SpO2 95 on 1-2L O2. However w/ any activity desats to 88-90% Lungs clear, but shallow at bases Denies discomfort. SL in RFA intact/patent. Call light w/in reach, bed alarm on for pt safety.
--- NOTE | 2021-10-16 12:39 | PT-IP ANOTE ---
checked on pt for PT this morning and counseling case manager also about to see pt. leilani talked to pt regarding d/c home. pt does not want to go to SNF. initially stated that his should be coming in anytime and working on getting here by a private vehicle ( does not drive). nurse came in and stated that pt informed that spouse is coming by taxi. pt stated they are working on a private vehicle. counseling case manager asked pt regarding the w/c (as pt's previous conversations that he will be getting a w/c) and pt stated that it is in the works. pt has 2 steps to enter the house and currently is not safe to do stair climbing and counseling case manager stated that he will need at least 2 or more strong people to assist him to get into the house. Pt stated that there might be neighbors that can assist. PT informed pt that pt might be discharging today and since pt refuses to go to SNF, he needs a w/c and assistance on hand right now and has to be certain that these are met for him to safely go home. informed pt and caregiver training also needs to be conducted. asked pt when spouse is coming and stated that spouse is waiting for meals on wheels and is coming in the hospital this afternoon. counseling case manager called pt's spouse and informed PT that they don't have a w/c at this time and might not have additional assistance to get pt into the house since they just moved in to the place and does not know much about their neighbors yet. counseling case manager stated that if pt is going home via BLS, spouse then is not coming in to the hospital. talked to pt regarding doing caregiver training and SNF rehab. pt stated that he can manage at home. informed pt that caregiver training needs to take place to make sure that his will be able to safely assist pt. pt understood. PT tx session hold off for the afternoon for when spouse comes in for training.
--- NOTE | 2021-10-16 13:30 | CM.DPC ---
Addendum entered by Ness Sheridan ALYSSA 10/16/21 14:41: ADD: Per EDGE PLUGGER, completed CG training with spouse bedside this afternoon around 1445 and pt now agreeable to SNF rehab. SW called [facility] and they are still contracted with pt's Mauraa and willing to review but since pt has both COVID vax but no booster would have to quarantine for 5 days and may not have quarantine bed until Mon or Tu but wiling to review. SW called [facility] and they are contracted with pt's CHRISTINE Lorenzoa and have openings. VJ Palma kindly emailed referral to both [facility] and [facility]. Printed copy of pt's vax record. [facility] still needed. Updated MD. BF Original Note: DCP Discharge Cancelled Per MD, pt may be medically stable to d/c today and pt still refusing SNF recommendation and to have RT assess for home oxygen. [facility] referral previously made and they confirm they can accept pt's insurance and F2F completed and will need to fax d/c summary and HH orders at discharge. Per PT/OT, recommending SNF and w/c at d/c and SW met bedside with pt and PT and discussed current discharge orders and pt still adamantly refusing SNF. PT discussed need for w/c in the home at d/c and need for at least 2-3 people to help get pt in w/c up the two stairs into the house at discharge due to his current oxygen de-sat with mobility and have not attempted stairs due to this. Pt states his two sons are currently in [place] and [place] and his Dtr is in [place] and they recently moved to [facility] and have limited support system in [facility] [place] [facility] and therefore spouse is reaching out to the people she knows in [place]. SW called spouse while bedside with pt and she confirms she does not drive and is trying to secure w/c as well as assist with spouse at d/c but these are not yet set up. CRUZ discussed with pt that cabulance would be private pay but pt would need his own w/c already at home and ability to transfer into chair himself and cabulance cannot help pt get into his home, only drop him off at his address. SW discussed BLS transport and pt was agreeable with SW getting quote. CC Minerva kindly called [facility] and $[phone] if they go through insurance to see if any coverage or $876 if pt pays upfront. SW provided this information to pt and he is considering paying up front if spouse cannot secure assist at d/c with local friends. RT completed home O2 assess and pt's oxygen needs went up to at least 6LO2 and therefore pt not medically stable to d/c at this time and MD cancelled discharge. Pt will continue to seek local assist through his [employer] members and spouse with securing a w/c and also getting assist with a ride home and help into his house at d/c. Pt continues to refuse SNF at this time and aware he may have to pay for BLS transport to safely get into his home. Spouse continuing to make calls and PT hopeful to do CG training with spouse if she can get a ride into the hospital by tomorrow. Plan: SW to follow closely for ongoing discussion with pt regarding local assist with w/c and ride vs BLS private pay transport at d/c and ongoing home oxygen needs. ALYSSA Valdes
--- NOTE | 2021-10-16 14:25 | PT.IPTN ---
Current Diagnoses Acute respiratory failure with hypoxia (10/11/21) Physical Therapy Treatment Note M2 PT-IP Current Condition Start: 10/14/21 13:10 Freq: NEEDED Status: Active Protocol: Document 10/14/21 11:15 AB (Rec: 10/14/21 13:20 AB [id number]) Physical Therapy Current Condition Current Condition Evaluation Date 10/14/21 Treatment Diagnosis CHF; difficulty in walking Onset Date 10/11/21 M3 PT-IP Subjective Start: 10/14/21 13:10 Freq: NEEDED Status: Active Protocol: Document 10/16/21 14:07 KS (Rec: 10/16/21 15:07 KS [id number]) Subjective Physical Therapy Visit Type Type Treatment Note Visit Start Time 14:07 Visit Stop Time 14:25 Total Visit Minutes 18 Notes Pts spouse present for caregiver training Physical Therapy Visit Comments Patient Comments pt agreeable to do PT M4 PT-IP Mobility and Gait Start: 10/14/21 13:10 Freq: NEEDED Status: Active Protocol: Document 10/16/21 14:07 KS (Rec: 10/16/21 15:07 KS [id number]) PT-Bed Mobility Assessment Supine to Sit Supine to Sit Contact Guard Assistance,1 Person Assistance,Head of Bed Elevated Scooting Scooting to Edge of Bed Contact Guard Assistance PT-Transfer Assessment Sit to and From Stand Sit to and from Stand Minimal Assistance,1 Person Assistance,Use of Upper Extremities Equipment Transfer Assistive Device Gait Belt,Front Wheeled Walker Transfers Transfer Destination Chair Transfer Technique ambulation Transfer Ability Level of Assist Moderate Assistance,1 Person Assistance,Use of Upper Extremities Comments Mobility Comments Pt in bed upon arrival w/ spouse in room. Spouse offers it is difficult to help pt at home due to her back problems and they do not have all necessary equipment. Pt on 1L O2 97% upon arrival desat to 91% while pt sitting on EOB. O2 increased to 4L for sit<> stand and transfer to chair. Demonstrated how to properly assist pt w/ sit<>stand to pts . Pt sit<>stand Min A w/ FWW and performed stand step pivot to chair Mod A for FWW management and cues for upright posture. Pt has increased flexed posture the longer he is standing. Pt desat to 87% during transfer on 4L but increased to high 90s after 1 min sitting. Gradually decreased pts O2 back to 1L and pt left in room on 1L at 97-98%. Informed pt and spouse he is unsafe to ambulate at this time due to O2 and weakness and will need w/c w/ 3PA to get into house while in w/c and will need assist w/ transfers in and out of bed and to chair and BSC ( which pt currently does not have).Informed pts spouse to acquire all necessary DME. Recommended SNF to improve activity tolerance and functional mobility independence and pt and spouse are agreeable. Pts spouse encouraging of rehab placement . Gait Assessment Comments Gait Comments Stand step pivot from bed to chair w/ FWW mod A on 4L, O2 desat to 87% but recovered ~1 min after sitting. M5 PT-IP Objective Assessments Start: 10/14/21 13:10 Freq: NEEDED Status: Active Protocol: Document 10/14/21 11:15 AB (Rec: 10/14/21 13:20 AB [id number]) Orientation Orientation/Cognition Level of Alertness Alert Orientation Name,Place,Situation Language Function Ability No Deficits Noted Safety Awareness Decreased Safety Awareness Memory Description Short Term Impaired Gross Range of Motion Lower Extremity ROM Assessment Within Functional Limits Strength Lower Extremity Strength Hip 4-/5 Knee 4-/5 Coordination Assessment Gross Coordination Gross Coordination WNL Sensation Assessment Sensation Gross Sensation WNL Muscle Tone Muscle Tone WNL Yes M6 PT-IP Treatment Start: 10/14/21 13:10 Freq: NEEDED Status: Active Protocol: Document 10/16/21 14:07 KS (Rec: 10/16/21 15:07 KS [id number]) Physical Therapy Treatment Education Education Provided Safety Other Treatments Other Treatment Performed Initiated caregiver training and pts spouse aware she can not safely provide assist. Pt and spouse agreeable to SNF. M7 PT-IP Assessment and Plan Start: 10/14/21 13:10 Freq: NEEDED Status: Active Protocol: Document 10/16/21 14:07 KS (Rec: 10/16/21 15:07 KS [id number]) PT Summary Assessment and Plan Potential Rehabilitation Potential Fair Summary Impairments Pain,ROM,Strength,Balance, Coordination,Sensation,Tone, Cognition,Bed Mobility, Transfers,Gait,Activity Tolerance Assessment Summary Pt continues to be limited by decreased activity tolerance and oxygen desaturation. CGA for bed mobility, Min A for sit<>Stand, and Mod A for stand step pivot from bed to chair and still desat to 87% on 4LO2. Pt recovered quickly and tolerating 1L O2 at rest. Initiated caregiver training w / pts spouse who will not be able to assist pt safely and does not have all necessary equipment although has acquired w/c. Made clear to pt he is not safe to return home and not safe to ambulate, but if he chooses to go home he will need BLS transport or 3 strong people to assist him into the house using w/c as he is not able to ambulate or ascend stairs at this time. Pt and ultimately agreeable to SNF which he will require to improve tolerance and functional mobility independence. Goals Bed Mobility Goal Standby Assistance Transfer Goal Standby Assistance,Front Wheeled Walker Gait Goal Standby Assistance,Front Wheel Walker Gait Distance 200 Other Goals up/down 3 steps R rail ascending SBA Days to Meet Goals 10 Frequency of Treatment Frequency Of Treatment Once a Day Treatment Plan Physical Therapy Treatment Plan Bed Mobility Training,Transfer Training,Gait Training, Therapeutic Exercise,Balance Retraining,Post Op Education, Discharge Planning,Hot or Cold Pack,Neuromuscular Re-ed, Coordination Retraining,Manual Therapy Precautions Other Precautions O2 sat Recommendations To Nursing Amount of Assist Needed 1 Person Assist Discharge Recommendations PT Discharge Recommendations SNF Rehab Transportation Needs at Discharge Wheelchair/Cabulance
--- NOTE | 2021-10-16 14:46 | CM.DPNOTE ---
Emailed snf referral per Ness to [facility] and [facility]. Minerva Maher CM Assist.
--- NOTE | 2021-10-16 15:40 | P.PN_ITS ---
Subjective Subjective Date Patient Seen: 10/16/21 Time Patient Seen: 15:41 Interval history: Today he feels well. Still short of breath with minimal exertion, required more than 6 L with activity today, not safe for discharge yet. At rest he is on room air. Recently changed to Dr. Pineda as his PCP. He was agreeable to SNF upon discharge today. Exam Vital Signs (past 8 hours): - 10/16/21 07:50 10/16/21 08:00 10/16/21 10:00 Temperature 97.9 F Pulse Rate 61 Respiratory Rate 18 Blood Pressure 133/72 Pulse Oximetry 97 96 96 10/16/21 11:00 10/16/21 14:00 10/16/21 15:00 Temperature Pulse Rate Respiratory Rate 18 Blood Pressure Pulse Oximetry 95 96 94 Fraction of Inspired Oxygen 40 Oxygen Delivery Method Nasal Cannula Oxygen Flow Rate 1 Narrative Exam Narrative: GEN: no acute distress HEENT: moist mucous membranes, PERRL NECK: trachea midline, no JVD CV: regular rate and rhythm, no murmurs PULM: crackles bilaterally, greater at right lung base, no wheezes ABD: soft, nontender, nondistended, no organomegaly, normal bowel sounds EXT: warm and well perfused with no edema NEURO: awake, alert, oriented, no focal deficits Objective Labs Result Diagrams: 10/16/21 05:23 10/16/21 05:23 Labs: Laboratory Results - last 24 hr 10/16/21 10/16/21 05:23 05:23 WBC 11.2 H RBC 4.16 L Hgb 10.2 L Hct 32.2 L MCV 77.4 L MCH 24.5 L MCHC 31.7 RDW 19.3 H Plt Count 291 Neut % (Auto) 82.6 H Lymph % (Auto) 9.9 L [place] % (Auto) 7.4 Eos % (Auto) 0.0 L Baso % (Auto) 0.1 Neut # (Auto) 9300 H Lymph # (Auto) 1100 [place] # (Auto) 800 Eos # (Auto) 0 Baso # (Auto) 0 Sodium 134 L Potassium 4.5 Chloride 102 Carbon Dioxide 32 BUN 51 H Creatinine 1.27 H Estimated GFR 54.7 L BUN/Creatinine Ratio 40.2 H Glucose 100 Calcium 9.1 Magnesium 2.0 PFSH Medical History Atrial fibrillation Atrial flutter Barretts esophagus CHF (congestive heart failure) Chronic cough Degenerative arthritis GERD (gastroesophageal reflux disease) GI bleed History of cardioversion Iron deficiency anemia Spinal stenosis of lumbar region with neurogenic claudication Surgical History History of coronary angioplasty with insertion of stent Hx of cholecystectomy Hx of tonsillectomy Social History household members: spouse Smoking Status: Never smoker alcohol intake: never Assessment & Plan Assessment & Plan narrative: Mr. Pro is a 80M with PMH CHF, atrial fibrillation, hx GI bleed, aortic stenosis, CAD who presents with shortness of breath and acute hypoxemic respiratory failure. 1. Acute hypoxemic respiratory failure with pneumonia and acute diastolic CHF exacerbation -has history of CHF, with elevated BNP and pleural effusions are consistent with acute CHF exacerbation. However he has not had much improvement with continued diuresis. -Initially diuresed with IV lasix, now on orals. -ECHO with normal EF but appeared volume overloaded. -additionally has leukocytosis, ground glass opacities, and possible fibrosis. started on prednisone but increased from 40 to 60 mg on 10/14 for either amiodarone toxicity or possible flare of IPF/UIP. -ordered respiratory panel and sputum culture which were negative -started on IV ceftriaxone and azithromycin, continued treatment x5 days. Now stopped. -blood cultures without growth -plan for SNF on discharge. 2. 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 -may need industrial safety and health specialist as outpatient 3. Eosinophilia, resolved -absolute count of 2600 -unclear if this is related to etiology of presentation, may fit with amiodarone induced etiology. 4. ARANZA -on admission creatinine 1.56, improved to 1.27. -continue to trend daily -did diurese well, continue lasix as noted above. -avoid nephrotoxins, but did get CTA in ED 5. Aortic stenosis -keep euvolemic as able 6. Atrial fibrillation, paroxysmal -hold amiodarone and metoprolol for now. rate currently controlled and BP is soft. -will restart at lower doses if needed. -continue xarelto 6. CAD -continue home medications, with atorvastatin CODE: had prolonged POLST form discussion, patient would like initial attempts at resuscitation if he can make a nearly full recovery. But would not like to be on prolonged life support. Wishes were update and patient changed to full code based on this discussion. We discussed that this goal may change if his chronic hypoxia continues, and it would be less likely that he would make a nearly full recovery after CPR or a critical illness and that he could revisit this decision in the future. Proxy: Spouse, Breanna I have utilized all available resources to reconcile the patient's home medications. Patient's PCP is Dr. Pineda, which was discovered yesterday. will check to see if [facility] would like to manage him going forward or not. Time Spent With Patient Critical Care time: I spent a total of [] minutes of critical care time on this patient's care today; this time is exclusive of procedural time.
[2021-10-16] MEDS: ALBUTEROL/IPRATROPIUM 3 ML AMPUL INH (20:48)
[2021-10-17] VITALS (16 sets, daily range): BP systolic 109–153; BP diastolic 60–74; PULSE 54–67; RESP 16–20; TEMP 36.1–36.8; O2SAT 95–100
[2021-10-17] MEDS: RIVAROXABAN 10 MG TABLET 15 MG PO (08:11)
[2021-10-17] MEDS: predniSONE 20 MG TABLET 60 MG PO (08:11)
[2021-10-17] MEDS: FUROSEMIDE 20 MG TABLET PO (08:12)
[2021-10-17] MEDS: ATORVASTATIN 20 MG TABLET 40 MG PO (08:12)
[2021-10-17] MEDS: SODIUM CHLORIDE 0.9% FLUSH 10 ML IV ×2 (08:13→21:23)
--- NOTE | 2021-10-17 11:10 | DIET.CONS ---
Dietary Consultation Note Admission Date: 10/11/2021 09:42 Assessment: 80y M screened by RD for LOS day 6. Pt admitted c SOB found to have pneumonia and CHF exacerbation not responding well to diuresis. Despite SOB pt consuming 100% meal trays without difficulty. Ht: 154.94 cm Wt: 70.2 kg BMI: 29.2 UBW: Last BM: 10/15/21 (10/15/21 19:30) MNA: Erick Score: 20 Diet: 10/14/21 Breakfast General (Regular) Diet Diet Modifications: Nutrition Percent Meal Consumed 100% 10/17/21 08:44 Percent Meal Consumed 100% 10/16/21 18:00 Percent Meal Consumed 100% 10/15/21 18:04 Percent Meal Consumed 100% 10/15/21 13:36 Labs: RBC 4.16 X10^6/uL (4.5-5.9) L 10/16/21 05:23 Hgb 10.2 g/dL (13.5-17.5) L 10/16/21 05:23 Hct 32.2 % (41-53) L 10/16/21 05:23 Creatinine 1.27 mg/dL (0.66-1.25) H 10/16/21 05:23 Lactate 2.0 mmol/L (0.7-2.1) 10/11/21 03:29 NT-Pro-B Natriuret Pep 1410 pg/mL (<450) H 10/11/21 01:18 Nutrition Diagnosis: none identified at this time. Electronically Signed by: Dori Cabello 10/17/21 11:10 Clinical Dietitian [address] [id number]
--- NOTE | 2021-10-17 12:00 | CM.DPC ---
DCP Cont: Have discharge orders on patient, but [employer] auth is pending. Spoke to patient and verified, he does want to go to rehab. Monserrat at [facility] [place] had left a message on the care management phone she can accept, but not until Tuesday due to staffing, and pending [employer] auth. Let patient know that [facility] accepted. [facility] is not accepting patient this weekend as well. Updated hospitalist that patient most likely can't go until Tuesday. Monserrat called back and received [employer] auth, and will call back with a time of black pickler on Tuesday. There are no other facilities that can accept this weekend. P: DCP to continue to follow. Monserrat at [facility] already has vaccination info, he has not received booster. Will need to complete PASSR, and patient most likely will need updated COVID swab. Meenakshi Patterson RN/Auriculotherapist
--- NOTE | 2021-10-17 13:51 | PM.PN.1 ---
Subjective Subjective Date Patient Seen: 10/17/21 Time Patient Seen: 08:00 Interval history: Today he has no complaints. He gets short of breath with activity, but at rest he is quite comfortable. Exam Vital Signs (past 8 hours): - 10/17/21 07:00 10/17/21 08:23 10/17/21 09:27 Temperature 98.0 F Pulse Rate 57 L Respiratory Rate 16 Blood Pressure 135/74 Pulse Oximetry 96 98 97 10/17/21 10:00 10/17/21 11:49 10/17/21 12:47 Temperature 98.3 F Pulse Rate 67 Respiratory Rate 16 Blood Pressure 109/60 Pulse Oximetry 95 99 100 Fraction of Inspired Oxygen 40 Oxygen Delivery Method Room Air Oxygen Flow Rate 2 Narrative Exam Narrative: GEN: no acute distress PULM: crackles bilaterally, greater at right lung base, no wheezes ABD: soft, nontender, nondistended, no organomegaly, normal bowel sounds EXT: warm and well perfused with no edema NEURO: awake, alert, oriented, no focal deficits Objective Labs Result Diagrams: 10/16/21 05:23 10/16/21 05:23 [facility] Medical History Atrial fibrillation Atrial flutter Barretts esophagus CHF (congestive heart failure) Chronic cough Degenerative arthritis GERD (gastroesophageal reflux disease) GI bleed History of cardioversion Iron deficiency anemia Spinal stenosis of lumbar region with neurogenic claudication Surgical History History of coronary angioplasty with insertion of stent Hx of cholecystectomy Hx of tonsillectomy Social History household members: spouse Smoking Status: Never smoker alcohol intake: never Assessment & Plan Assessment & Plan narrative: Mr. Pro is a 80M with PMH CHF, atrial fibrillation, hx GI bleed, aortic stenosis, CAD who presents with shortness of breath and acute hypoxemic respiratory failure. 1. Acute hypoxemic respiratory failure with pneumonia and acute diastolic CHF exacerbation -has history of CHF, with elevated BNP and pleural effusions are consistent with acute CHF exacerbation. However he has not had much improvement with continued diuresis. -Initially diuresed with IV lasix, now on orals. -ECHO with normal EF but appeared volume overloaded. -additionally has leukocytosis, ground glass opacities, and possible fibrosis. started on prednisone but increased from 40 to 60 mg on 10/14 for either amiodarone toxicity or possible flare of IPF/UIP. -ordered respiratory panel and sputum culture which were negative -started on IV ceftriaxone and azithromycin, continued treatment x5 days. Now stopped. -blood cultures without growth -plan for SNF on discharge. 2. 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 -may need pulp mill supervisor as outpatient 3. Eosinophilia, resolved -absolute count of 2600 -unclear if this is related to etiology of presentation, may fit with amiodarone induced etiology. 4. ARANZA -on admission creatinine 1.56, improved to 1.27. -continue to trend daily -did diurese well, continue lasix as noted above. -avoid nephrotoxins, but did get CTA in ED 5. Aortic stenosis -keep euvolemic as able 6. Atrial fibrillation, paroxysmal -hold amiodarone and metoprolol for now. rate currently controlled and BP is soft. -will restart at lower doses if needed. -continue xarelto 6. CAD -continue home medications, with atorvastatin Dispo: patient is medically stable for discharge, pending snf placement Time Spent With Patient Critical Care time: I spent a total of [] minutes of critical care time on this patient's care today; this time is exclusive of procedural time.
--- NOTE | 2021-10-17 14:08 | PT.IPTN ---
Current Diagnoses Acute respiratory failure with hypoxia (10/11/21) Physical Therapy Treatment Note M2 PT-IP Current Condition Start: 10/14/21 13:10 Freq: NEEDED Status: Active Protocol: Document 10/14/21 11:15 AB (Rec: 10/14/21 13:20 AB [id number]) Physical Therapy Current Condition Current Condition Evaluation Date 10/14/21 Treatment Diagnosis CHF; difficulty in walking Onset Date 10/11/21 M3 PT-IP Subjective Start: 10/14/21 13:10 Freq: NEEDED Status: Active Protocol: Document 10/17/21 13:52 KS (Rec: 10/17/21 15:12 KS [id number]) Subjective Physical Therapy Visit Type Type Treatment Note Visit Start Time 13:52 Visit Stop Time 14:08 Total Visit Minutes 16 Physical Therapy Visit Comments Patient Comments pt agreeable to do PT M4 PT-IP Mobility and Gait Start: 10/14/21 13:10 Freq: NEEDED Status: Active Protocol: Document 10/17/21 13:52 KS (Rec: 10/17/21 15:12 KS [id number]) PT-Bed Mobility Assessment Supine to Sit Supine to Sit Contact Guard Assistance,1 Person Assistance,Head of Bed Elevated Scooting Scooting to Edge of Bed Contact Guard Assistance PT-Transfer Assessment Sit to and From Stand Sit to and from Stand Minimal Assistance,1 Person Assistance,Use of Upper Extremities Equipment Transfer Assistive Device Gait Belt,Front Wheeled Walker Transfers Transfer Destination Bed Transfer Ability Level of Assist Moderate Assistance,1 Person Assistance,Use of Upper Extremities Comments Mobility Comments Pt in bed and not agreeable to transfer to chair. CGA for sup<>sit and scooting EOB w/ HOB elevated on 2LO2 and O2 > 95%. Pt sit<>Stand Min A and performed [address] w/ difficulty elevating feet from floor. Pts O2 dropped to 86% and instructed pt to sit. O2 increased to 3L and raised to 93% after 4 min seated rest break. Pt sit<>Stand again Min A and performed additonal marching in place but required Mod A and cues fr upright posture. Pts O2 again dropped to mid 80s on 3L and pt requested to lay back down. Pt took ~4 min to recover to mid 90s, O2 decreased to 2L and pt able to maintain 95-97% on 2L. Pt left in bed w/ alarm on and all needs in reach. Gait Assessment Comments Gait Comments Marching in place only - Mod A M5 PT-IP Objective Assessments Start: 10/14/21 13:10 Freq: NEEDED Status: Active Protocol: Document 10/14/21 11:15 AB (Rec: 10/14/21 13:20 AB [email or web address]) Orientation Orientation/Cognition Level of Alertness Alert Orientation Name,Place,Situation Language Function Ability No Deficits Noted Safety Awareness Decreased Safety Awareness Memory Description Short Term Impaired Gross Range of Motion Lower Extremity ROM Assessment Within Functional Limits Strength Lower Extremity Strength Hip 4-/5 Knee 4-/5 Coordination Assessment Gross Coordination Gross Coordination WNL Sensation Assessment Sensation Gross Sensation WNL Muscle Tone Muscle Tone WNL Yes M6 PT-IP Treatment Start: 10/14/21 13:10 Freq: NEEDED Status: Active Protocol: Document 10/17/21 13:52 KS (Rec: 10/17/21 15:12 KS [id number]) Physical Therapy Treatment Education Education Provided Safety M7 PT-IP Assessment and Plan Start: 10/14/21 13:10 Freq: NEEDED Status: Active Protocol: Document 10/17/21 13:52 KS (Rec: 10/17/21 15:12 KS [id number]) PT Summary Assessment and Plan Potential Rehabilitation Potential Fair Summary Impairments Pain,ROM,Strength,Balance, Coordination,Sensation,Tone, Cognition,Bed Mobility, Transfers,Gait,Activity Tolerance Progress Towards Goals Slow Progress due to Medical Issues,Slow Progress due to Activity Tolerance,Slow Progress - Other Assessment Summary Pt remains limited by low tolerance for activity and oxygen desaturation w/ exertion. CGA for bed mobility , Min A for sit<>stand, and Mod A for marching in place. Pt needing 3L for mobility today and still desat to mid 80s requring 3-4 min to recover. Only able to tolerate 15-[address] before becoming too fatigued to participate in further therapy. Pt will require SNF to improve activity tolerance and functional mobility independence. Goals Bed Mobility Goal Standby Assistance Transfer Goal Standby Assistance,Front Wheeled Walker Gait Goal Standby Assistance,Front Wheel Walker Gait Distance 200 Other Goals up/down 3 steps R rail ascending SBA Days to Meet Goals 10 Frequency of Treatment Frequency Of Treatment Once a Day Treatment Plan Physical Therapy Treatment Plan Bed Mobility Training,Transfer Training,Gait Training, Therapeutic Exercise,Balance Retraining,Post Op Education, Discharge Planning,Hot or Cold Pack,Neuromuscular Re-ed, Coordination Retraining,Manual Therapy Precautions Other Precautions O2 sat Recommendations To Nursing Amount of Assist Needed 1 Person Assist Discharge Recommendations PT Discharge Recommendations SNF Rehab Transportation Needs at Discharge Wheelchair/Cabulance
--- NOTE | 2021-10-17 14:52 | PC.NURSE ---
Pt condition relatively unchanged, Continues to desat w/activity. Lungs clear/shallow SpO2 bedrest 97% 2L SL RFA intact/patent. Planning D/C to [facility] tuesday10/19/21 per farm planner. Call light w/in reach, bed alarm on for pt safety. Continue w/plan of care.
[2021-10-18] VITALS (8 sets, daily range): BP systolic 115–145; BP diastolic 65–74; PULSE 49–67; RESP 16–20; TEMP 36.1–36.7; O2SAT 97–100
--- NOTE | 2021-10-18 08:59 | CM.DPC ---
Addendum entered by Meenakshi Patterson R.N. 10/18/21 14:36: Spoke to Monserrat at [facility] and confirmed bean picker time of 1300 tomorrow. Went ahead and faxed over negative COVID results, and PASSR. Original Note: DCP Cont: Patient is to be picked up tomorrow at 1300, Monserrat from [facility] had left a message. She obtained his [employer] auth yesterday, but due to staffing, unable to take until Tuesday. Updated patient, he is aware and appreciative, placed COVID swab orders. so this will be completed before discharge. P: DCP to continue to follow. [facility] will be able to accept tomorrow with bean picker time of 1300. Meenakshi Patterson RN/Smokehouse Worker
[2021-10-18] MEDS: RIVAROXABAN 10 MG TABLET 15 MG PO (09:18)
[2021-10-18] MEDS: FUROSEMIDE 20 MG TABLET PO (09:19)
[2021-10-18] MEDS: ATORVASTATIN 20 MG TABLET 40 MG PO (09:19)
[2021-10-18] MEDS: predniSONE 20 MG TABLET 60 MG PO (09:19)
[2021-10-18] MEDS: SODIUM CHLORIDE 0.9% FLUSH 10 ML IV ×2 (09:20→20:48)
--- NOTE | 2021-10-18 09:26 | PC.NURSE ---
Pt aox3 in bed doing upper body pull ups using neto lift bars. no resp distress on 2l o2nc sats 99% will monitor.
[2021-10-18 12:36] LABS: COVID19 -Nasal RAPID Negative (Negative)
--- NOTE | 2021-10-18 13:34 | P.PN_ITS ---
Subjective Subjective Date Patient Seen: 10/18/21 Time Patient Seen: 08:00 Interval history: He is not short of breath at rest. He has not been out of b ed yet today. Exam Vital Signs (past 8 hours): - 10/18/21 05:42 10/18/21 07:15 10/18/21 09:00 Temperature 98.1 F 97.0 F L Pulse Rate 49 L 55 L Respiratory Rate 16 20 Blood Pressure 135/70 145/74 H Pulse Oximetry 100 100 98 10/18/21 09:29 10/18/21 11:30 Temperature 98.0 F Pulse Rate 59 L Respiratory Rate 18 Blood Pressure 136/65 Pulse Oximetry 97 98 Fraction of Inspired Oxygen 40 Oxygen Delivery Method Nasal Cannula Oxygen Flow Rate 0 Narrative Exam Narrative: GEN: no acute distress PULM: crackles bilaterally, greater at right lung base, no wheezes ABD: soft, nontender, nondistended, no organomegaly, normal bowel sounds EXT: warm and well perfused with no edema NEURO: awake, alert, oriented, no focal deficits Objective Labs Result Diagrams: 10/16/21 05:23 10/16/21 05:23 Labs: Laboratory Results - last 24 hr 10/18/21 12:05 SARS-CoV-2 (PCR) Negative [facility] Medical History Atrial fibrillation Atrial flutter Barretts esophagus CHF (congestive heart failure) Chronic cough Degenerative arthritis GERD (gastroesophageal reflux disease) GI bleed History of cardioversion Iron deficiency anemia Spinal stenosis of lumbar region with neurogenic claudication Surgical History History of coronary angioplasty with insertion of stent Hx of cholecystectomy Hx of tonsillectomy Social History household members: spouse Smoking Status: Never smoker alcohol intake: never Assessment & Plan Assessment & Plan narrative: Mr. Pro is a 80M with PMH CHF, atrial fibrillation, hx GI bleed, aortic stenosis, CAD who presents with shortness of breath and acute hypoxemic res piratory failure. 1. Acute hypoxemic respiratory failure with pneumonia and acute diastolic CHF exacerbation -has history of CHF, with elevated BNP and pleural effusions are consistent with acute CHF exacerbation. However he has not had much improvement with continued diuresis. -Initially diuresed with IV lasix, now on orals. -ECHO with normal EF but appeared volume overloaded. -additionally has leukocytosis, ground glass opacities, and possible fibrosis. started on prednisone but increased from 40 to 60 mg on 10/14 for either amiodarone toxicity or possible flare of IPF/UIP. -ordered respiratory panel and sputum culture which were negative -started on IV ceftriaxone and azithromycin, continued treatment x5 days. Now stopped. -blood cultures without growth -plan for SNF on discharge. 2. 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 -may need straightening press operator helper as outpatient 3. Eosinophilia, resolved -absolute count of 2600 -unclear if this is related to etiology of presentation, may fit with amiodarone induced etiology. 4. ARANZA, improved -on admission creatinine 1.56, improved now -continue to trend daily -did diurese well, continue lasix as noted above. -avoid nephrotoxins, but did get CTA in ED 5. Aortic stenosis -keep euvolemic as able 6. Atrial fibrillation, paroxysmal -hold amiodarone and metoprolol for now. rate currently controlled and BP is soft. -will restart at lower doses if needed. -continue xarelto 6. CAD -continue home medications, with atorvastatin Dispo: patient is medically stable for discharge, pending snf placement Time Spent With Patient Critical Care time: I spent a total of [] minutes of critical care time on this patient's care today; this time is exclusive of procedural time.
--- NOTE | 2021-10-18 14:45 | PT.IPTN ---
Current Diagnoses Acute respiratory failure with hypoxia (10/11/21) Physical Therapy Treatment Note M2 PT-IP Current Condition Start: 10/14/21 13:10 Freq: NEEDED Status: Active Protocol: Document 10/14/21 11:15 AB (Rec: 10/14/21 13:20 AB [email or web address]) Physical Therapy Current Condition Current Condition Evaluation Date 10/14/21 Treatment Diagnosis CHF; difficulty in walking Onset Date 10/11/21 M3 PT-IP Subjective Start: 10/14/21 13:10 Freq: NEEDED Status: Active Protocol: Document 10/18/21 14:45 AW (Rec: 10/18/21 15:00 AW [id number]) Subjective Physical Therapy Visit Type Type Treatment Note Visit Start Time 14:25 Visit Stop Time 14:42 Total Visit Minutes 17 Physical Therapy Visit Comments Patient Comments pt agreeable to do PT M4 PT-IP Mobility and Gait Start: 10/14/21 13:10 Freq: NEEDED Status: Active Protocol: Document 10/18/21 14:45 AW (Rec: 10/18/21 15:00 AW [id number]) PT-Bed Mobility Assessment Supine to Sit Supine to Sit Standby Assistance,Head of Bed Elevated Scooting Scooting to Edge of Bed Standby Assistance PT-Transfer Assessment Sit to and From Stand Sit to and from Stand Minimal Assistance,1 Person Assistance,Use of Upper Extremities Equipment Transfer Assistive Device Gait Belt,Front Wheeled Walker Comments Mobility Comments Pt was in bed as PT arrived. SpO2 on 2 L/min via NC was 98- 99%. SBA for bed mobility with HOB elevated. Pt needed min A to stand EOB and he leaned excessively on the bed in standing. Pt was able to use FWW to step away from the bed and performed standing marches x 30 seconds to fatigue. SpO2 was 86%. Titrated O2 up to 3L and SpO2 recovered to 92% in 3 minutes. Pt refused transfer to the chair, stating preference to remain in bed and use the mechanical lift as a trapeze for UB strengthening. Pt stood again to attempt standing march but required increased assist due to reported fatigue. Pt sat and SpO2 was down to 87% again . SpO2 recovered to mid-90's in 4 minutes and pt was assisted back to supine. Left pt with call light and tray table in reach, bed alarm on. O2 returned to 2 L/min flow rate and pt was stable min/ high 90's before PT departed. M5 PT-IP Objective Assessments Start: 10/14/21 13:10 Freq: NEEDED Status: Active Protocol: Document 10/14/21 11:15 AB (Rec: 10/14/21 13:20 AB [email or web address]) Orientation Orientation/Cognition Level of Alertness Alert Orientation Name,Place,Situation Language Function Ability No Deficits Noted Safety Awareness Decreased Safety Awareness Memory Description Short Term Impaired Gross Range of Motion Lower Extremity ROM Assessment Within Functional Limits Strength Lower Extremity Strength Hip 4-/5 Knee 4-/5 Coordination Assessment Gross Coordination Gross Coordination WNL Sensation Assessment Sensation Gross Sensation WNL Muscle Tone Muscle Tone WNL Yes M6 PT-IP Treatment Start: 10/14/21 13:10 Freq: NEEDED Status: Active Protocol: Document 10/18/21 14:45 AW (Rec: 10/18/21 15:00 AW [id number]) Physical Therapy Treatment Education Education Provided Safety Other Treatments Other Treatment Performed Seated shoulder flexion, abduction, focus on breathing mechanics. M7 PT-IP Assessment and Plan Start: 10/14/21 13:10 Freq: NEEDED Status: Active Protocol: Document 10/18/21 14:45 AW (Rec: 10/18/21 15:00 AW [id number]) PT Summary Assessment and Plan Summary Impairments Pain,ROM,Strength,Balance, Coordination,Sensation,Tone, Cognition,Bed Mobility, Transfers,Gait,Activity Tolerance Progress Towards Goals Slow Progress due to Medical Issues,Slow Progress due to Activity Tolerance,Slow Progress - Other Assessment Summary Pt fatigues quickly and has need for increased oxygen support with standing activities. He can not tolerate much activity and has reduced functional capacity. Pt will require SNF rehab. Goals Bed Mobility Goal Standby Assistance Transfer Goal Standby Assistance,Front Wheeled Walker Gait Goal Standby Assistance,Front Wheel Walker Gait Distance 200 Other Goals up/down 3 steps R rail ascending SBA Days to Meet Goals 10 Frequency of Treatment Frequency Of Treatment Once a Day Treatment Plan Physical Therapy Treatment Plan Bed Mobility Training,Transfer Training,Gait Training, Therapeutic Exercise,Balance Retraining,Post Op Education, Discharge Planning,Hot or Cold Pack,Neuromuscular Re-ed, Coordination Retraining,Manual Therapy Precautions Other Precautions O2 sat Recommendations To Nursing Amount of Assist Needed 1 Person Assist Discharge Recommendations PT Discharge Recommendations SNF Rehab Transportation Needs at Discharge Wheelchair/Cabulance
[2021-10-19 01:08] VITALS: BP 139/77; PULSE 56; RESP 18; TEMP 36.6; O2SAT 98
[2021-10-19 04:37] VITALS: BP 138/75; PULSE 59; RESP 16; TEMP 36.4; O2SAT 98
[2021-10-19 04:44] VITALS: O2SAT 98
--- NOTE | 2021-10-19 06:54 | PC.NURSE ---
Pt on 2L NC, sating in the upper 90's, Lung sounds diminished throughout. Pt does need oxygen increased with any activity due to desating.
--- NOTE | 2021-10-19 08:19 | P.DS_ITS ---
History of Present Illness History of Present Illness Date Patient Seen: 10/19/21 Time Patient Seen: 08:31 Chief complaint: SOB Narrative: Per Dr. Babcock, Mr. Pro is a 80M with PMH CHFpEF, Afib, previous GI bleed who presents with shortness of breath. He notes primarily feeling short of breath with standing up and other exertion. This has been occurring for 2 weeks. He has no chest pain. No fevers/chills. Minimal coughing. He denies leg swelling or weight gain. He is not able to provide much more detailed history. EMS presented to his house and on arrival sats documented in 60s. He was placed on CPAP, and then to BIPAP once in the ED. In the ED workup was done, vitals notable for him being afebrile, heart rate in 60s, slightly elevated blood pressure. He was able to weaned off bipap quickly and placed on nasal cannula. Labs notable for WBC 13.4, hgb 12.4, plts 415, BUN 24, creatinine 1.56. INR 2.7. Lactate 3.0, improved to 2.0 with treatment. BNP 1400. Chest xray with reduced volume and patchy infiltrate. CT shows ca rdiomegaly, small pericardial effusion, reticular fibrosis along bases, and ground glass opacities with small pleural effusion. He was ordered for lasix and nitro and felt significantly improved. He was admitted for further treatment. Family history: sister with breast cancer Discharge Providers Provider Date of admission: 10/11/21 09:42 Discharge Date: 10/19/21 Primary care physician: Honey Campbell MD Consults: 10/11/21 01:09 Consult to Respiratory Therapy Evaluate & Treat Comment: Physician Instructions: Evaluate and treat 10/14/21 08:52 Consult to Physical Therapy Evaluate & Treat Comment: Physician Instructions: Evaluate and Treat Discharge provider: Reynold Ramsay DO Summary Hospital Course Discharge Diagnosis: Please see hospital course by problem list noted below: Hospital Course: Mr. Pro is a 80M with PMH CHF, atrial fibrillation, hx GI bleed, aortic stenosis, CAD who presented with shortness of breath and acute hypoxemic r espiratory failure. 1. Acute hypoxemic respiratory failure with bacterial pneumonia and acute diast olic CHF exacerbation -has history of CHF, with elevated BNP and pleural effusions are consistent with acute CHF exacerbation. However he has not had much continued improvement with continued diuresis and remains primarily hypoxic with exertion. -Initially diuresed with IV lasix, now on oral diuretics. -ECHO with normal EF but appeared volume overloaded. -additionally had leukocytosis, ground glass opacities, and possible fibrosis. started on prednisone but increased from 40 to 60 mg on 10/14 for either amiodarone toxicity or possible flare of IPF/UIP with mild improvement. Would continue prednisone as outpatient and follow up with pulmonology and cardiology is highly recommended. Also completed antibiotic course for possible CAP. -ordered respiratory panel and sputum culture which were negative -blood cultures without growth -Patient much diminished from his baseline after PT/OT evaluations, transferring to SNF for further rehabilitation. 2. 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 -recommend pulmonology as noted above as an outpatient. -treat with 60 mg of prednisone for at least two weeks, further taper or continued dosing depending on symptoms and at the discretion of PCP or specialist as recommended above. 3. Eosinophilia, resolved -absolute count of 2600 -unclear if this is related to etiology of presentation, may fit with amiodarone induced etiology. 4. ARANZA, improved -on admission creatinine 1.56, improved now -did diurese well, continue lasix as noted above. -avoid nephrotoxins, but did get CTA in ED 5. Aortic stenosis -suspect symptoms are more related to the above rather than his . Echo did show normal EF as noted above. 6. Atrial fibrillation, paroxysmal -hold amiodarone and metoprolol for now. rate currently controlled and BP is soft. -will restart at lower doses if needed. -continue xarelto 6. CAD -continue home medications, with atorvastatin Dispo: Transfer to SNF. Time Spent with Patient Time spent: Greater than 30 minutes Exam Vital Signs (past 8 hours): - 10/19/21 01:08 10/19/21 04:37 10/19/21 04:44 Temperature 97.9 F 97.5 F L Pulse Rate 56 L 59 L Respiratory Rate 18 16 Blood Pressure 139/77 138/75 Pulse Oximetry 98 98 98 Fraction of Inspired Oxygen 40 Oxygen Delivery Method Nasal Cannula Oxygen Flow Rate 2 Narrative Exam Narrative: GEN: no acute distress HEENT: moist mucous membranes, PERRL NECK: trachea midline, no JVD CV: regular rate and rhythm, no murmurs PULM: crackles bilaterally, greater at right lung base, no wheezes ABD: soft, nontender, nondistended, no organomegaly, normal bowel sounds EXT: warm and well perfused with no edema NEURO: awake, alert, oriented, no focal deficits Objective Labs Result Diagrams: 10/16/21 05:23 10/16/21 05:23 Labs: Laboratory Results - last 24 hr 10/18/21 12:05 SARS-CoV-2 (PCR) Negative [facility] Medical History Atrial fibrillation Atrial flutter Barretts esophagus CHF (congestive heart failure) Chronic cough Degenerative arthritis GERD (gastroesophageal reflux disease) GI bleed History of cardioversion Iron deficiency anemia Spinal stenosis of lumbar region with neurogenic claudication Surgical History History of coronary angioplasty with insertion of stent Hx of cholecystectomy Hx of tonsillectomy Social History household members: spouse Smoking Status: Never smoker alcohol intake: never Discharge Plan Discharge Plan Patient Disposition: SNF Discharge orders & Medications Prescriptions: New acetaminophen 325 mg Tablet 650 mg PO Q6HR PRN (Reason: pain) 30 Days Qty: 30 0RF prednisone 20 mg Tablet 60 mg PO DAILY 14 Days Qty: 42 0RF furosemide 20 mg Tablet 20 mg PO DAILY 30 Days Qty: 30 0RF Continued atorvastatin 40 mg Tablet 40 mg PO DAILY 0RF Xarelto 20 mg Tablet 20 mg PO DAILY 0RF Discontinued amiodarone 200 mg Tablet 200 mg PO BID 0RF metoprolol succinate 50 mg Tablet Extended Release 24 Hr 50 mg PO BID 0RF Follow up/Referrals: Honey Campbell MD [Primary Care Provider] - Diet/Activity/Treatments Diet: Diet as Tolerated and Low-sodium Liquid consistency: Normal/Thin Food texture: Regular Activity: As tolerated Oxygen: Goal O2 while on oxygen >89%. Primarily needed with activity. [facility] Reason for rehabilitation: Recovery r/t decondition Rehab type: Physical therapy and Occupational therapy Discharge Data Primary Care Provider: Honey Campbell
[2021-10-19 08:46] VITALS: BP 146/79; PULSE 56; RESP 17; TEMP 35.9; O2SAT 98
[2021-10-19] MEDS: ATORVASTATIN 20 MG TABLET 40 MG PO (08:53)
[2021-10-19] MEDS: FUROSEMIDE 20 MG TABLET PO (08:54)
[2021-10-19] MEDS: RIVAROXABAN 10 MG TABLET 15 MG PO (08:54)
[2021-10-19] MEDS: predniSONE 20 MG TABLET 60 MG PO (08:54)
[2021-10-19] MEDS: SODIUM CHLORIDE 0.9% FLUSH 10 ML IV (08:56)
--- NOTE | 2021-10-19 09:12 | CM.DPC ---
DCP Cont: Patient is going to [facility] today, citrus picker time of 1300. Dr. Ramsay completed orders, faxed them DC Summary, PASSR, and COVID results. Facility already has vaccination information. Updated white board at main nurses station, updated nurse, Maria. P: Patient is to go to [facility] today with citrus picker at 1300. Meenakshi Patterson RN/Felix Patterson
[2021-10-19 10:18] VITALS: O2SAT 98
== END 2021-10-19 13:19 | DRG 291 ==
LOC: ED 07:00 → AC 09:44
PROVIDERS: Internal Medicine; Admitting Provider Nurse Practitioner Family; Emergency Provider Emergency Medicine; PCP Family Medicine; Referring Provider Emergency Medicine; Visit Provider Nurse Practitioner Family
DX: I50.33 Acute on chronic diastolic (congestive) heart failure (principal); J96.01 Acute respiratory failure with hypoxia; J15.9 Unspecified bacterial pneumonia; N17.9 Acute kidney failure, unspecified; D72.10 Eosinophilia, unspecified; I48.0 Paroxysmal atrial fibrillation; J84.112 Idiopathic pulmonary fibrosis; T46.2X5A Adverse effect of other antidysrhythmic drugs, initial encounter; I35.0 Nonrheumatic aortic (valve) stenosis; I25.10 Atherosclerotic heart disease of native coronary artery without angina pectoris; Z95.5 Presence of coronary angioplasty implant and graft; Z66 Do not resuscitate; Z79.01 Long term (current) use of anticoagulants; Z20.822 Contact with and (suspected) exposure to COVID-19
CPT/HCPCS: 36415; 36600; 71045; 71250; 71275; 80048; 80053; 82550; 82805; 83605; 83735; 83880; 84484; 85007; 85025; 85610; 85730; 87040; 87633; 87635; 93005; 93306; 94618; 94640; 94660; 94760; 96374; 97116; 97162; 97530; 99285; C9803; J0696; J1940; Q9967

== ENCOUNTER 2021-12-28 14:25 | Inpatient (IN) | payer OTHER, SELFPAY ==
[2021-10-11 05:10] VITALS: PULSE 52; RESP 16; O2SAT 98
[2021-10-11 09:56] VITALS: BMI 29.2
[2021-12-28] VITALS (16 sets, daily range): BP systolic 124–162; BP diastolic 64–74; PULSE 56–76; RESP 13–31; TEMP 36.3–37; O2SAT 92–98; BMI 22.3; BMI 22.4
--- NOTE | 2021-12-28 14:25 | DI.RAD.S_ITS ---
PROCEDURE: XR CHEST 2V INDICATIONS: shortness of breath TECHNIQUE: 2 views of the chest were acquired. COMPARISON: [facility], CT, CT CHEST HIGH RESOLUTION, 10/11/2021, 19:02. [facility], CR, XR CHEST 2 VIEWS, 09/01/2020, 16:53. [facility], CR, XR CHEST 1 VIEW, 09/01/2020, 11:13. [facility], CT, CT ANGIO CHEST PE PROTOCOL, 10/11/2021, 3:05. [facility], CR, XR CHEST 1V, 12/01/2020, 12:18. [facility], CR, XR CHEST 1V, 10/11/2021, 1:05. [facility], CR, XR CHEST 1V, 01/27/2021, 16:13. FINDINGS: Surgical changes and devices: None. Lungs and pleura: Small right pleural effusion and possible trace left pleural effusion. Bibasilar infiltrates and consolidations may be present. There is chronic diffuse interstitial prominence. No pleural effusions or pneumothorax. Mediastinum: Mediastinal contours are normal. Heart size is normal. Bones and chest wall: No suspicious bony abnormalities. Soft tissues appear unremarkable. IMPRESSION: 1. Bibasilar infiltrates and consolidations with small right pleural effusion and possible trace left pleural effusion suspicious for pneumonia. 2. Chronic interstitial prominence consistent with superimposed chronic interstitial lung disease. Dictated by: Olvin Rodriguez M.D. on 12/28/2021 at 16:06 Approved by: Olvin Rodrgiuez M.D. on 12/28/2021 at 16:10
[2021-12-28 14:52] LABS: Hematocrit 25.3 % (41-53); Hemoglobin 8.3 g/dL (13.5-17.5); Mean Corpuscular HGB Conc 32.6 % (30-36); Mean Corpuscular Hemoglobin 26.2 PG (26-34); Mean Corpuscular Volume 80.2 fL (80-100); Platelet Count 69 X10^3/uL (150-400); Red Blood Cell Count 3.16 X10^6/uL (4.5-5.9); Red Cell Distribution Width 20.9 % (11.6-14.8); White Blood Cell Count 11.1 X10^3/uL (4.5-11.0)
[2021-12-28 14:54] LABS: Add Manual Diff / Slide Review YES
[2021-12-28 15:00] LABS: Lactate (Lactic Acid) 2.9 mmol/L (0.7-2.1)
[2021-12-28 15:01] LABS: Alanine Aminotransferase 15 IU/L (<50); Albumin 2.6 g/dL (3.5-5.0); Albumin Globulin Ratio 0.7 (1.0-2.8); Alkaline Phosphatase 153 U/L (38-126); Aspartate Aminotransferase 23 IU/L (17-59); BUN Creatinine Ratio 17.8 (6-22); Bilirubin Total 1.2 mg/dL (0.2-1.3); Blood Urea Nitrogen 21 mg/dL (9-20); Calcium 7.8 mg/dL (8.4-10.2); Carbon Dioxide 28 mmol/L (22-32); Chloride 105 mmol/L (98-107); Estimated Glomerular Filt Rate > 60 mL/min (>60); Globulin 3.8 g/dL (1.7-4.1); Glucose 98 mg/dL (80-110); HEMOLYSIS < 15 (0-50); Sodium 138 mmol/L (137-145); Total Protein 6.4 g/dL (6.3-8.2)
[2021-12-28 15:03] LABS: Potassium 2.5 mmol/L (3.4-5.1)
[2021-12-28 15:12] LABS: Neutrophils Absolute Manual 7104 /uL (3000-5900); Total Cells Counted 100
[2021-12-28 15:13] LABS: Anisocytosis 1+; Schistocytes 2+
[2021-12-28 15:45] LABS: Hematocrit 25.4 % (41-53); Hemoglobin 8.3 g/dL (13.5-17.5)
--- NOTE | 2021-12-28 15:55 | ED_ITS ---
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 Patient states that he has had shortness of breath with exertion. He states when he is resting whether sitting or lying flat he does not have any issues but when he walks he notes that his breathing is heavy. He denies chest pain or pressure. No syncope or lightheadedness. No diaphoresis. No nausea or vomiting. He denies any issues with bowel movements, no black or bloody stools. No issues with urination or swelling. Patient states he has had similar symptoms in the past but it was from lung problems. He states he was admitted in September or October for a lung issue or infection for 8 days. He is anticoagulated on Eliquis, metoprolol, atorvastatin and a vitamin supplement he states these are all his medications. He states he had a prior cardioversion he has had prior cardiac stents, and cholecystectomy. No known drug allergies. No tobacco, alcohol or illicit. His primary care is Dr. Floyd through the [place] as well as locally with Dr. Pineda. Related Data Home Medications Medication Instructions Recorded Confirmed atorvastatin 40 mg tablet 40 mg PO DAILY 12/02/20 10/11/21 rivaroxaban 20 mg tablet (Xarelto) 20 mg PO DAILY 12/02/20 10/11/21 Allergies Allergy/AdvReac Type Severity Reaction Status Date / Time No Known Drug Allergies Allergy Verified 12/28/21 14:54 Review of Systems Review of Systems ROS Unobtainable: All systems reviewed & are unremarkable except as noted in HPI and below Patient History Medical History Atrial fibrillation Atrial flutter Barretts esophagus CHF (congestive heart failure) Chronic cough Degenerative arthritis GERD (gastroesophageal reflux disease) GI bleed History of cardioversion Iron deficiency anemia Spinal stenosis of lumbar region with neurogenic claudication Surgical History History of coronary angioplasty with insertion of stent Hx of cholecystectomy Hx of tonsillectomy Social History household members: spouse Smoking Status: Never smoker alcohol intake: never Smoking Status: Never smoker Substance Use Type: does not use Exam Narrative Exam Narrative: GENERAL: Alert and oriented x three, male in mild distress. HEENT: Head normocephalic, atraumatic, EOMI, pupils reactive, face symmetric, moist mucous membranes NECK: Supple, full range of motion CARDIOVASCULAR: Regular rate and rhythm without murmurs, rubs or gallops. No JVD. No swelling bilateral lower extremities. RESPIRATORY: Breath sounds equal bilaterally, no wheezes rales or rhonchi. ABDOMEN: Soft, nontender. Normoactive bowel sounds all 4 quadrants. No guarding or rebound, rigidity, no mass : No CVA tenderness EXTREMITIES: Normal range of motion, no clubbing or edema. Neurovascularly intact NEUROLOGICAL: Cranial nerves II through XII grossly intact. Moving all extremities SKIN: Warm, dry, no petechiae, no rashes or lesions. Initial Vital Signs Initial Vital Signs: Vital Signs Temperature 98.6 F 12/28/21 14:22 Pulse Rate 67 12/28/21 14:22 Respiratory Rate 18 12/28/21 14:22 Blood Pressure 152/73 H 12/28/21 14:22 Pulse Oximetry 95 12/28/21 14:22 Course Orders Ordered: ED Orders 12/28/21 14:25 XR chest 2V Stat EKG-12 Lead Stat Measure peak expiratory flow ONCE RT Consult Eval and Treat Now 12/28/21 14:35 Complete Blood Count AUTO DIFF Stat Comprehensive Metabolic Panel Stat Lactate (Lactic Acid) Stat 12/28/21 14:45 PTT [Partial Thromboplastin Time] Stat Prothrombin Time INR Stat Type and Screen Stat 12/28/21 15:25 BMP [Basic Metabolic Panel] Stat BNP [NT-proBNP (BNP-Adult 18+)] Stat Hemoglobin and Hematocrit Stat Troponin & CK Cardiac Panel Stat 12/28/21 16:25 COVID19 -Nasal RAPID/Pre-Proc Stat POTASSIUM CHLORIDE IN WATER (Potassium Cl 10 Meq/100 Ml Deja) 10 meq in 100 mls @ 100 mls/hr IV Q1H FE Stop: 12/28/21 22:29 Last Admin: 12/28/21 17:05 Dose: 100 mls/hr Documented by: ALICE Consultations Consultation #1: Dr. Hunt, accepts discussed findings in MDM with Dr. Hunt. Vital Signs Vital signs: Vital Signs - 8 hr 12/28/21 14:22 12/28/21 14:53 12/28/21 15:00 Temperature 98.6 F Pulse Rate 67 60 59 L Respiratory Rate 18 15 21 Blood Pressure 152/73 H 154/70 H Pulse Oximetry 95 95 95 12/28/21 15:30 12/28/21 16:00 12/28/21 16:30 Temperature Pulse Rate 59 L 56 L 57 L Respiratory Rate 27 H 31 H 18 Blood Pressure Pulse Oximetry 98 96 98 12/28/21 17:00 Temperature Pulse Rate 60 Respiratory Rate 16 Blood Pressure Pulse Oximetry MDM - SOB/Dyspnea Lab Data Result diagrams: 12/28/21 15:25 12/28/21 15:25 Labs: Lab Results 12/28/21 12/28/21 12/28/21 Range/Units 14:35 14:35 14:35 WBC 11.1 H (4.5-11.0) X10^3/uL RBC 3.16 L (4.5-5.9) X10^6/uL Hgb 8.3 L (13.5-17.5) g/dL Hct 25.3 L (41-53) % MCV 80.2 (80-100) fL MCH 26.2 (26-34) PG MCHC 32.6 (30-36) % RDW 20.9 H (11.6-14.8) % Plt Count 69 L (150-400) X10^3/uL Neut % (Auto) Not Reportable Lymph % (Auto) Not Reportable [place] % (Auto) Not Reportable Eos % (Auto) Not Reportable Baso % (Auto) Not Reportable Lymph # (Auto) Not Reportable [place] # (Auto) Not Reportable Baso # (Auto) Not Reportable Total Counted 100 Seg Neutrophils % 62.0 (38-70) % Band Neutrophils % 2.0 L (3-7) % Lymphocytes % (Manual) 15.0 L (25-45) % Monocytes % (Manual) 3.0 (2-11) % Eosinophils % (Manual) 17.0 H (2-4) % Metamyelocytes % 1.0 H (-0) % Neutrophils # (Manual) 7104 H (9089-6645) /uL RBC Morphology See below Anisocytosis 1+ H Schistocytes 2+ H PT (10.1-12.7) SECONDS INR (0.9-1.3) APTT (26.4-36.2) SECONDS Sodium 138 (137-145) mmol/L Potassium 2.5 L* (3.4-5.1) mmol/L Chloride 105 (98-107) mmol/L Carbon Dioxide 28 (22-32) mmol/L BUN 21 H (9-20) mg/dL Creatinine 1.18 (0.66-1.25) mg/dL Estimated GFR > 60 (>60) mL/min BUN/Creatinine Ratio 17.8 (6-22) Glucose 98 (80-110) mg/dL Lactate 2.9 H (0.7-2.1) mmol/L Calcium 7.8 L (8.4-10.2) mg/dL Total Bilirubin 1.2 (0.2-1.3) mg/dL AST 23 (17-59) IU/L ALT 15 (<50) IU/L Alkaline Phosphatase 153 H (38-126) U/L Total Creatine Kinase (55-170) U/L CK-MB (CK-2) CK-MB (CK-2) Rel Index Troponin I (0.01-0.034) ng/mL NT-Pro-B Natriuret Pep (<450) pg/mL Total Protein 6.4 (6.3-8.2) g/dL Albumin 2.6 L (3.5-5.0) g/dL Globulin 3.8 (1.7-4.1) g/dL Albumin/Globulin Ratio 0.7 L (1.0-2.8) SARS-CoV-2 (PCR) (Negative) Blood Type Antibody Screen 12/28/21 12/28/21 12/28/21 Range/Units 14:45 14:45 15:25 WBC (4.5-11.0) X10^3/uL RBC (4.5-5.9) X10^6/uL Hgb 8.3 L (13.5-17.5) g/dL Hct 25.4 L (41-53) % MCV (80-100) fL MCH (26-34) PG MCHC (30-36) % RDW (11.6-14.8) % Plt Count (150-400) X10^3/uL Neut % (Auto) Lymph % (Auto) [place] % (Auto) Eos % (Auto) Baso % (Auto) Lymph # (Auto) [place] # (Auto) Baso # (Auto) Total Counted Seg Neutrophils % (38-70) % Band Neutrophils % (3-7) % Lymphocytes % (Manual) (25-45) % Monocytes % (Manual) (2-11) % Eosinophils % (Manual) (2-4) % Metamyelocytes % (-0) % Neutrophils # (Manual) (0739-5104) /uL RBC Morphology Anisocytosis Schistocytes PT 26.9 H (10.1-12.7) SECONDS INR 2.4 H (0.9-1.3) APTT 34 D (26.4-36.2) SECONDS Sodium (137-145) mmol/L Potassium (3.4-5.1) mmol/L Chloride (98-107) mmol/L Carbon Dioxide (22-32) mmol/L BUN (9-20) mg/dL Creatinine (0.66-1.25) mg/dL Estimated GFR (>60) mL/min BUN/Creatinine Ratio (6-22) Glucose (80-110) mg/dL Lactate (0.7-2.1) mmol/L Calcium (8.4-10.2) mg/dL Total Bilirubin (0.2-1.3) mg/dL AST (17-59) IU/L ALT (<50) IU/L Alkaline Phosphatase (38-126) U/L Total Creatine Kinase (55-170) U/L CK-MB (CK-2) CK-MB (CK-2) Rel Index Troponin I (0.01-0.034) ng/mL NT-Pro-B Natriuret Pep (<450) pg/mL Total Protein (6.3-8.2) g/dL Albumin (3.5-5.0) g/dL Globulin (1.7-4.1) g/dL Albumin/Globulin Ratio (1.0-2.8) SARS-CoV-2 (PCR) (Negative) Blood Type B Positive Antibody Screen Negative 0612/28/21 12/28/21 Range/Units 15:25 15:25 16:25 WBC (4.5-11.0) X10^3/uL RBC (4.5-5.9) X10^6/uL Hgb (13.5-17.5) g/dL Hct (41-53) % MCV (80-100) fL MCH (26-34) PG MCHC (30-36) % RDW (11.6-14.8) % Plt Count (150-400) X10^3/uL Neut % (Auto) Lymph % (Auto) [place] % (Auto) Eos % (Auto) Baso % (Auto) Lymph # (Auto) [place] # (Auto) Baso # (Auto) Total Counted Seg Neutrophils % (38-70) % Band Neutrophils % (3-7) % Lymphocytes % (Manual) (25-45) % Monocytes % (Manual) (2-11) % Eosinophils % (Manual) (2-4) % Metamyelocytes % (-0) % Neutrophils # (Manual) (8866-3359) /uL RBC Morphology Anisocytosis Schistocytes PT (10.1-12.7) SECONDS INR (0.9-1.3) APTT (26.4-36.2) SECONDS Sodium 139 (137-145) mmol/L Potassium 2.6 L* (3.4-5.1) mmol/L Chloride 106 (98-107) mmol/L Carbon Dioxide 28 (22-32) mmol/L BUN 22 H (9-20) mg/dL Creatinine 1.23 (0.66-1.25) mg/dL Estimated GFR 59 L (>60) mL/min BUN/Creatinine Ratio 17.9 (6-22) Glucose 87 (80-110) mg/dL Lactate (0.7-2.1) mmol/L Calcium 7.8 L (8.4-10.2) mg/dL Total Bilirubin (0.2-1.3) mg/dL AST (17-59) IU/L ALT (<50) IU/L Alkaline Phosphatase (38-126) U/L Total Creatine Kinase 35 L (55-170) U/L CK-MB (CK-2) TNP CK-MB (CK-2) Rel Index TNP Troponin I 0.014 (0.01-0.034) ng/mL NT-Pro-B Natriuret Pep 1300 H (<450) pg/mL Total Protein (6.3-8.2) g/dL Albumin (3.5-5.0) g/dL Globulin (1.7-4.1) g/dL Albumin/Globulin Ratio (1.0-2.8) SARS-CoV-2 (PCR) Negative (Negative) Blood Type Antibody Screen 12/28/21 Range/Units 17:21 WBC (4.5-11.0) X10^3/uL RBC (4.5-5.9) X10^6/uL Hgb (13.5-17.5) g/dL Hct (41-53) % MCV (80-100) fL MCH (26-34) PG MCHC (30-36) % RDW (11.6-14.8) % Plt Count (150-400) X10^3/uL Neut % (Auto) Lymph % (Auto) [place] % (Auto) Eos % (Auto) Baso % (Auto) Lymph # (Auto) [place] # (Auto) Baso # (Auto) Total Counted Seg Neutrophils % (38-70) % Band Neutrophils % (3-7) % Lymphocytes % (Manual) (25-45) % Monocytes % (Manual) (2-11) % Eosinophils % (Manual) (2-4) % Metamyelocytes % (-0) % Neutrophils # (Manual) (8513-9695) /uL RBC Morphology Anisocytosis Schistocytes PT (10.1-12.7) SECONDS INR (0.9-1.3) APTT (26.4-36.2) SECONDS Sodium (137-145) mmol/L Potassium (3.4-5.1) mmol/L Chloride (98-107) mmol/L Carbon Dioxide (22-32) mmol/L BUN (9-20) mg/dL Creatinine (0.66-1.25) mg/dL Estimated GFR (>60) mL/min BUN/Creatinine Ratio (6-22) Glucose (80-110) mg/dL Lactate 1.3 (0.7-2.1) mmol/L Calcium (8.4-10.2) mg/dL Total Bilirubin (0.2-1.3) mg/dL AST (17-59) IU/L ALT (<50) IU/L Alkaline Phosphatase (38-126) U/L Total Creatine Kinase (55-170) U/L CK-MB (CK-2) CK-MB (CK-2) Rel Index Troponin I (0.01-0.034) ng/mL NT-Pro-B Natriuret Pep (<450) pg/mL Total Protein (6.3-8.2) g/dL Albumin (3.5-5.0) g/dL Globulin (1.7-4.1) g/dL Albumin/Globulin Ratio (1.0-2.8) SARS-CoV-2 (PCR) (Negative) Blood Type Antibody Screen Imaging Data Chest x-ray: Radiologist's Impression: Federico Pro??81??M??1940 ? Allergy/Adv: No Known Drug Allergies Close Chest X-Ray (Signed) Imer Rodriguez - 12/28/[address] (Signed) Wong Peres - 10/11/21 Echocardiogram Ultrasound (Signed) Malu Pagan - 10/11/21 Telemetry Strips 10/11/21 Chest CTA (Signed) Andrea Miranda - 10/11/21 Chest X-Ray (Signed) Filipe Lozano - 10/11/21 Chest X-Ray (Signed) Berenice Lawrence - 01/27/21 Telemetry Strips 12/01/[address] (Signed) Flakito Trejo - 12/01/20 Chest X-Ray (Signed) Luis Thomson - 12/01/20 Echocardiogram Ultrasound (Signed) Baljinder Blakely - 12/01/20 Launch?[address] [address] XRay Report Signed Patient: Federico Pro MR#: [id number] : 1940 Acct:[id number] Age/Sex: 81 / M Date of Service: 12/28/21 Loc: Accession Number: [id number] ?? Procedure: XR chest 2V Ordering Provider: Katina Ocasio D.O. PROCEDURE:? XR CHEST 2V ? INDICATIONS:? shortness of breath ? TECHNIQUE:? 2 views of the chest were acquired.? ? COMPARISON:? [facility], CT, CT CHEST HIGH RESOLUTION, 10/11/2021, 19:02.? [facility], CR, XR CHEST 2 VIEWS, 09/01/2020, 16:53.? [facility], CR, XR CHEST 1 VIEW, 09/01/2020, 11:13.? [facility], CT, CT ANGIO CHEST PE PROTOCOL, 10/11/2021, 3:05.? [facility], CR, XR CHEST 1V, 12/01/2020, 12:18.? [facility], CR, XR CHEST 1V, 10/11/2021, 1:05.? [facility], CR, XR CHEST 1V, 01/27/2021, 16:13. ? FINDINGS:? ? Surgical changes and devices:? None.? ? Lungs and pleura:? Small right pleural effusion and possible trace left pleural effusion. ?Bibasilar infiltrates and consolidations may be present.? There is chronic diffuse interstitial prominence.? No pleural effusions or pneumothorax.? ? Mediastinum:? Mediastinal contours are normal.? Heart size is normal.? ? Bones and chest wall:? No suspicious bony abnormalities.? Soft tissues appear unremarkable.? ? IMPRESSION:? ? 1. Bibasilar infiltrates and consolidations with small right pleural effusion and possible trace left pleural effusion suspicious for pneumonia. 2. Chronic interstitial prominence consistent with superimposed chronic interstitial lung disease.? ? ? Dictated by: Olvin Rodriguez M.D. on 12/28/2021 at 16:06 ? ? Approved by: Olvin Rodriguez M.D. on 12/28/2021 at 16:10?? ECG Data Attestation: I personally reviewed and interpreted this ECG as follows: Prior ECG tracings: available for review Interpretation: Sinus rhythm, EKG read as junctional but he does appear to have P waves with his QRS is although sometimes low amplitude, rate of 64 QRS of 92 and QTC of 437. Nonspecific change. Patient has prior from 10/11/2021 nonspecific change. MDM Narrative Medical decision making narrative: Patient comes with dyspnea.? Is anemia dropped 2 points from his past, possible GI bleeding he is on Eliquis.? Patient has negative troponin, BNP is elevated, chest x-ray shows changes possible pneumonia but patient was recently hospitalized and he has not had any fevers or infectious type symptoms, no cough making my suspicion for acute pneumonia less and had not started antibiotics.? Has hypokalemia he is not reportedly on any medications that should drop his potassium, he states he has been eating and drinking, denies vomiting or diarrhea.? Potassium was replaced here in the department.? BNP is slightly el evated but held Lasix secondary to low potassium.? Troponin is negative.? Patient has not been hypoxic or tachycardic.? COVID swab is negative. Discharge Plan Departure Patient Disposition: Admitted as Observation Clinical Impression: Anemia, Hypokalemia
[2021-12-28 16:02] LABS: Creatine Kinase 35 U/L (55-170)
[2021-12-28 16:03] LABS: BUN Creatinine Ratio 17.9 (6-22); Blood Urea Nitrogen 22 mg/dL (9-20); Calcium 7.8 mg/dL (8.4-10.2); Carbon Dioxide 28 mmol/L (22-32); Chloride 106 mmol/L (98-107); Estimated Glomerular Filt Rate 59 mL/min (>60); Glucose 87 mg/dL (80-110); HEMOLYSIS < 15 (0-50); Sodium 139 mmol/L (137-145)
[2021-12-28 16:15] LABS: NT-proBNP (BNP-Adult 18+) 1300 pg/mL (<450); Troponin I 0.014 ng/mL (0.01-0.034)
[2021-12-28 16:19] LABS: Potassium 2.6 mmol/L (3.4-5.1)
[2021-12-28 16:31] LABS: INR 2.4 (0.9-1.3); Prothrombin Time 26.9 SECONDS (10.1-12.7)
[2021-12-28 16:34] LABS: PTT Partial Thromboplastin Tim 34 SECONDS (26.4-36.2)
[2021-12-28 16:45] LABS: Reflexed Lactate in 2 Hours Y
[2021-12-28 16:49] LABS: COVID19 -Nasal RAPID Negative (Negative)
[2021-12-28] MEDS: POTASSIUM CHLORIDE IN WATER 10 MEQ/100 ML PIGGYBACK 100 MEQ IV ×5 (17:05→23:50)
[2021-12-28 17:39] LABS: Lactate 2HR (Lactic Acid Rflx) 1.3 mmol/L (0.7-2.1)
--- NOTE | 2021-12-28 20:16 | DI.CT.S_ITS ---
PROCEDURE: CT CHEST HIGH RESOLUTION INDICATIONS: abn chest xray history of uie TECHNIQUE: Noncontrast 1.0 and 5.0 mm thick contiguous axial sections from the pulmonary apex to the posterior costophrenic angles, with 7 mm thick coronal and sagittal MIP reformats. 1 mm thick dynamic expiratory images acquired through the upper, mid, and lower lungs. Patient was unable to tolerate prone imaging. For radiation dose reduction, the following was used: automated exposure control, adjustment of mA and/or kV according to patient size. COMPARISON: [facility], CT, CT ANGIO CHEST PE PROTOCOL, 10/11/2021, 3:05. [facility], CT, CT CHEST HIGH RESOLUTION, 10/11/2021, 19:02. FINDINGS: Image quality: There is mild motion artifact. Lungs: Bilateral subpleural reticulation and mild traction bronchiectasis are demonstrated with a basilar predominance. Evaluation for honeycombing is limited due to consolidation in the lung bases. There are bilateral peripheral areas of irregular consolidation with a basilar predominance. There are also mild associated indistinct peripheral ground-glass opacities with a basilar predominance. The trachea and central airways are patent. There is a small amount of dependent mucus within the trachea. Dynamic images demonstrate no definite evidence of air trapping. Pleura: There are small bilateral pleural effusions which appear increased compared to the prior study. No pneumothorax. Mediastinum: Heart size is normal. There is a minimal pericardial effusion. Thoracic aorta and central pulmonary arteries are normal in size. There are mildly enlarged mediastinal lymph nodes including a precarinal node measuring up to 1.3 cm in short axis. The esophagus is mildly distended with intraluminal fluid and air-fluid levels throughout. There is a small hiatal hernia. Bones and chest wall: No suspicious bony lesions. No vertebral body compression fractures. Visualized thyroid demonstrates small indistinct nodules bilaterally. Abdomen: Visualized upper abdomen demonstrates surgical absence of the gallbladder. IMPRESSION: 1. 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 2. Persistent peripheral ground-glass opacities with a basilar predominance may represent a superimposed acute infectious or inflammatory process versus an NSIP pattern. 3. Peripheral irregular regions of consolidation bilaterally with a basilar predominance appear increased compared to the prior study. The findings are also suggestive of a superimposed acute infectious or inflammatory component possibly secondary to aspiration given the presence of esophageal fluid distension. 4. Fluid and gas distention of the esophagus which appears patulous. The findings are nonspecific and may reflect sequelae of reflux or possibly scleroderma. Recommend correlation clinically. Dictated by: Wong Peres M.D. on 12/28/2021 at 22:55 Approved by: Wong Peres M.D. on 12/28/2021 at 23:04
--- NOTE | 2021-12-28 20:22 | P.HP_ITS ---
History of Present Illness History of Present Illness Date Patient Seen: 12/28/21 Time Patient Seen: 20:22 Chief complaint: SOB Narrative: Patient is a 81-year-old male patient of Dr. Pineda with history of congestive heart failure atrial fibrillation and history of prior GI bleeds with mild aortic stenosis and moderate tricuspid stenosis with left atrial enlargement who presents with shortness of breath. Basically is been in his usual state health after a significant admission in September for multiple issues and discharge to retirement. He has been home now for a while and over the last 6 days has been come increasingly short of breath related with dyspnea with exertion only. It is very mild. He has no chest pain or shortness of breath. He is fine when he sitting or lying but otherwise feels somewhat short of breath. His no diaphoresis no nausea no vomiting is had no change in his bowel movements no blood in his stool that he knows of. He has had no urination or swelling problems. Otherwise he when he was admitted in September he was found to have an infection in his lungs and possibly fibrosis but it has not been followed up as far as we now. They thought maybe this was related to his atrial fibrillation treatment. He has had no other significant changes. Denies drugs alcohol or other problems Patient History Medical History Atrial fibrillation Atrial flutter Barretts esophagus CHF (congestive heart failure) Chronic cough Degenerative arthritis GERD (gastroesophageal reflux disease) GI bleed History of cardioversion Iron deficiency anemia Spinal stenosis of lumbar region with neurogenic claudication Surgical History History of coronary angioplasty with insertion of stent Hx of cholecystectomy Hx of tonsillectomy Family & Social History Social History: household members spouse Prior Living Arrangements House Safety & Behavioral: Been Physically Hurt or No Threatened By a Person Tobacco & Substance use: Smoking Status Never smoker alcohol intake never Substance Use Type does not use Meds Home Medications and Allergies Home Medications Medication Instructions Recorded Confirmed Type atorvastatin 40 mg tablet 40 mg PO DAILY 12/02/20 12/28/21 History apixaban 5 mg tablet (Eliquis) 5 mg PO BID 12/28/21 12/28/21 History metoprolol succinate 25 mg 12.5 mg PO BID 12/28/21 12/28/21 History tablet,extended release 24 hr Allergies Allergy/AdvReac Type Severity Reaction Status Date / Time No Known Drug Allergies Allergy Verified 12/28/21 14:54 Review of Systems Review of Systems Narrative: See above all negative except what is mentioned Exam Vital Signs (past 8 hours): - 12/28/21 14:22 12/28/21 14:53 12/28/21 15:00 Temperature 98.6 F Pulse Rate 67 60 59 L Respiratory Rate 18 15 21 Blood Pressure 152/73 H 154/70 H Pulse Oximetry 95 95 95 12/28/21 15:30 12/28/21 16:00 12/28/21 16:30 Temperature Pulse Rate 59 L 56 L 57 L Respiratory Rate 27 H 31 H 18 Blood Pressure Pulse Oximetry 98 96 98 12/28/21 17:00 12/28/21 17:18 12/28/21 17:30 Temperature Pulse Rate 60 60 63 Respiratory Rate 16 20 21 Blood Pressure 148/72 H 159/65 H Pulse Oximetry 96 96 12/28/21 18:00 12/28/21 18:30 12/28/21 19:00 Temperature Pulse Rate 59 L 60 65 Respiratory Rate 17 13 14 Blood Pressure 156/64 H 162/74 H 154/72 H Pulse Oximetry 96 95 96 Oxygen Delivery Method Room Air Narrative Exam Narrative: Alert elderly male sitting in bed no acute distress bulbar conjunctiva mildly pale mucous membranes moist neck supple without adenopathy lungs are clear heart regular rate and rhythm abdomen is soft positive bowel sounds nontender extremities without cyanosis clubbing edema neurologic exam is unremarkable. Objective Labs Result Diagrams: 12/28/21 15:25 12/28/21 15:25 Labs: Laboratory Results - last 24 hr 12/28/21 12/28/21 12/28/21 14:35 14:35 14:35 WBC 11.1 H RBC 3.16 L Hgb 8.3 L Hct 25.3 L MCV 80.2 MCH 26.2 MCHC 32.6 RDW 20.9 H Plt Count 69 L Neut % (Auto) Not Reportable Lymph % (Auto) Not Reportable [facility] % (Auto) Not Reportable Eos % (Auto) Not Reportable Baso % (Auto) Not Reportable Lymph # (Auto) Not Reportable [facility] [facility] # (Auto) Not Reportable Baso # (Auto) Not Reportable Total Counted 100 Seg Neutrophils % 62.0 Band Neutrophils % 2.0 L Lymphocytes % (Manual) 15.0 L Monocytes % (Manual) 3.0 Eosinophils % (Manual) 17.0 H Metamyelocytes % 1.0 H Neutrophils # (Manual) 7104 H RBC Morphology See below Anisocytosis 1+ H Schistocytes 2+ H PT INR APTT Sodium 138 Potassium 2.5 L* Chloride 105 Carbon Dioxide 28 BUN 21 H Creatinine 1.18 Estimated GFR > 60 BUN/Creatinine Ratio 17.8 Glucose 98 Lactate 2.9 H Calcium 7.8 L Total Bilirubin 1.2 AST 23 ALT 15 Alkaline Phosphatase 153 H Total Creatine Kinase CK-MB (CK-2) CK-MB (CK-2) Rel Index Troponin I NT-Pro-B Natriuret Pep Total Protein 6.4 Albumin 2.6 L Globulin 3.8 Albumin/Globulin Ratio 0.7 L SARS-CoV-2 (PCR) Blood Type Antibody Screen 12/28/21 12/28/21 12/28/21 14:45 14:45 15:25 WBC RBC Hgb 8.3 L Hct 25.4 L MCV MCH MCHC RDW Plt Count Neut % (Auto) Lymph % (Auto) [place] % (Auto) Eos % (Auto) Baso % (Auto) Lymph # (Auto) [facility] [facility] # (Auto) Baso # (Auto) Total Counted Seg Neutrophils % Band Neutrophils % Lymphocytes % (Manual) Monocytes % (Manual) Eosinophils % (Manual) Metamyelocytes % Neutrophils # (Manual) RBC Morphology Anisocytosis Schistocytes PT 26.9 H INR 2.4 H APTT 34 D Sodium Potassium Chloride Carbon Dioxide BUN Creatinine Estimated GFR BUN/Creatinine Ratio Glucose Lactate Calcium Total Bilirubin AST ALT Alkaline Phosphatase Total Creatine Kinase CK-MB (CK-2) CK-MB (CK-2) Rel Index Troponin I NT-Pro-B Natriuret Pep Total Protein Albumin Globulin Albumin/Globulin Ratio SARS-CoV-2 (PCR) Blood Type B Positive Antibody Screen Negative 12/28/21 12/28/21 12/28/21 15:25 15:25 16:25 WBC RBC Hgb Hct MCV MCH MCHC RDW Plt Count Neut % (Auto) Lymph % (Auto) [facility] [facility] % (Auto) Eos % (Auto) Baso % (Auto) Lymph # (Auto) [facility] [facility] # (Auto) Baso # (Auto) Total Counted Seg Neutrophils % Band Neutrophils % Lymphocytes % (Manual) Monocytes % (Manual) Eosinophils % (Manual) Metamyelocytes % Neutrophils # (Manual) RBC Morphology Anisocytosis Schistocytes PT INR APTT Sodium 139 Potassium 2.6 L* Chloride 106 Carbon Dioxide 28 BUN 22 H Creatinine 1.23 Estimated GFR 59 L BUN/Creatinine Ratio 17.9 Glucose 87 Lactate Calcium 7.8 L Total Bilirubin AST ALT Alkaline Phosphatase Total Creatine Kinase 35 L CK-MB (CK-2) TNP CK-MB (CK-2) Rel Index TNP Troponin I 0.014 NT-Pro-B Natriuret Pep 1300 H Total Protein Albumin Globulin Albumin/Globulin Ratio SARS-CoV-2 (PCR) Negative Blood Type Antibody Screen 12/28/21 17:21 WBC RBC Hgb Hct MCV MCH MCHC RDW Plt Count Neut % (Auto) Lymph % (Auto) [facility] % (Auto) Eos % (Auto) Baso % (Auto) Lymph # (Auto) [facility] # (Auto) Baso # (Auto) Total Counted Seg Neutrophils % Band Neutrophils % Lymphocytes % (Manual) Monocytes % (Manual) Eosinophils % (Manual) Metamyelocytes % Neutrophils # (Manual) RBC Morphology Anisocytosis Schistocytes PT INR APTT Sodium Potassium Chloride Carbon Dioxide BUN Creatinine Estimated GFR BUN/Creatinine Ratio Glucose Lactate 1.3 Calcium Total Bilirubin AST ALT Alkaline Phosphatase Total Creatine Kinase CK-MB (CK-2) CK-MB (CK-2) Rel Index Troponin I NT-Pro-B Natriuret Pep Total Protein Albumin Globulin Albumin/Globulin Ratio SARS-CoV-2 (PCR) Blood Type Antibody Screen Assessment & Plan Assessment & Plan narrative: Hypokalemia. Patient has had a history of this in the past but had been on diuretics. He is currently not taking those. He has had no other significant change no diarrhea no did bowel problems no vomiting. And is unclear what this is secondary to but currently getting IV replacement will recheck it in a.m. and follow. He will need to be followed closely as outpatient depending on how he responds. Anemia. Patient had a history of GI bleed which workup showed some gastritis. He was supposed to be on a PPI but he certainly not on that now. He did not have the completion of his colonoscopy secondary to other issues. At this point will discontinue his anticoagulation. Will check GI evaluation for guaiac. Will place on pantoprazole. Will check again tomorrow. Depending on what the finding is. May need to consider workup before he leaves the hospital. But will see how things go. Will obtain iron studies B12 folate. Abnormal CT scan in the past with abnormal chest x-ray today. Certainly does not appear to be a infected. Recommendation for follow-up CT scan was made at last admission and it does not appears if he has had 1 at this point will obtain CT scan tomorrow to evaluate for possible infection could this be related to his hypokalemia I guess it is possible but will see. At this point no antibiotics and will follow. Re-evaluate tomorrow. History of acute kidney impact normal now. Will follow. Atrial fibrillation. Will hold his Eliquis for now. So we figure out what is going on with his bleeding but otherwise continue his metoprolol. Hyperlipidemia continue atorvastatin. Greater than 40 minute spent with patient emergency room nurse and orders and dictations Time Spent With Patient Critical Care time: I spent a total of [] minutes of critical care time on this patient's care today; this time is exclusive of procedural time. Quality VTE Deep Vein Thrombosis/Pulmonary Embolism Present on Admission: No
[2021-12-28] MEDS: PANTOPRAZOLE DR 20 MG TABLET PO (21:23)
[2021-12-28] MEDS: METOPROLOL ER 25 MG TABLET 12.5 MG PO (22:06)
[2021-12-29] VITALS (16 sets, daily range): BP systolic 122–181; BP diastolic 65–81; PULSE 60–70; RESP 16–18; TEMP 36.6–37.7; O2SAT 94–97
[2021-12-29] MEDS: POTASSIUM CHLORIDE IN WATER 10 MEQ/100 ML PIGGYBACK 100 MEQ IV ×5 (00:56→13:31)
[2021-12-29 05:52] LABS: Hematocrit 22.7 % (41-53); Hemoglobin 7.5 g/dL (13.5-17.5); Mean Corpuscular HGB Conc 33.1 % (30-36); Mean Corpuscular Hemoglobin 26.2 PG (26-34); Mean Corpuscular Volume 79.2 fL (80-100); Platelet Count 53 X10^3/uL (150-400); Red Blood Cell Count 2.87 X10^6/uL (4.5-5.9); White Blood Cell Count 12.4 X10^3/uL (4.5-11.0)
[2021-12-29 05:53] LABS: HEMOLYSIS < 15 (0-50); Iron 61 ug/dL (49-181)
[2021-12-29 05:54] LABS: BUN Creatinine Ratio 17.3 (6-22); Blood Urea Nitrogen 19 mg/dL (9-20); Calcium 7.7 mg/dL (8.4-10.2); Carbon Dioxide 29 mmol/L (22-32); Chloride 105 mmol/L (98-107); Estimated Glomerular Filt Rate > 60 mL/min (>60); Glucose 92 mg/dL (80-110); HEMOLYSIS < 15 (0-50); Potassium 3.2 mmol/L (3.4-5.1); Sodium 135 mmol/L (137-145)
[2021-12-29 05:57] LABS: Add Manual Diff / Slide Review YES
[2021-12-29 06:01] LABS: Transferrin 118 mg/dL (206-381)
[2021-12-29 06:05] LABS: Percent Iron Saturation 36 % (20-50); Total Iron Binding Capacity 168 ug/dL (261-462)
[2021-12-29 06:59] LABS: Neutrophils Absolute Manual 6944 /uL (3000-5900); Total Cells Counted 100
[2021-12-29 07:01] LABS: Anisocytosis 3+; Schistocytes 2+
[2021-12-29 07:04] LABS: Folate 8.1 ng/mL (2.76-20.0); Platelet Estimate Decreased on smear; Poikilocytosis 2+; Vitamin B12 820 pg/mL (239-931)
[2021-12-29] MEDS: METOPROLOL ER 25 MG TABLET 12.5 MG PO ×2 (08:03→21:35)
[2021-12-29] MEDS: ATORVASTATIN 20 MG TABLET 40 MG PO (08:04)
--- NOTE | 2021-12-29 08:24 | PM.PN.1 ---
Subjective Subjective Date Patient Seen: 12/29/21 Time Patient Seen: 08:24 Interval history: Patient seen in follow-up of multiple issues. Patient has had an uneventful night. No chest pain no shortness of breaths. Did require slight O2 this morning. But no other changes. No cough fevers chills or other change. He has not had a bowel movement yet. Exam Vital Signs (past 8 hours): - 12/29/21 08:03 Blood Pressure 148/76 H Oxygen Delivery Method Room Air Narrative Exam Narrative: Alert smiling male in no acute distress Mucous membranes moist neck supple without adenopathy lungs are clear heart regular rate and rhythm abdomen is soft positive bowel sounds nontender rectal exam shows guaiac negative stool with light brown. No other changes. Extremities normal. Objective Labs Result Diagrams: 12/29/21 05:08 12/29/21 05:08 Labs: Laboratory Results - last 24 hr 12/28/21 12/28/21 12/28/21 14:35 14:35 14:35 WBC 11.1 H RBC 3.16 L Hgb 8.3 L Hct 25.3 L MCV 80.2 MCH 26.2 MCHC 32.6 RDW 20.9 H Plt Count 69 L Neut % (Auto) Not Reportable Lymph % (Auto) Not Reportable [place] % (Auto) Not Reportable Eos % (Auto) Not Reportable Baso % (Auto) Not Reportable Lymph # (Auto) Not Reportable [place] # (Auto) Not Reportable Baso # (Auto) Not Reportable Total Counted 100 Seg Neutrophils % 62.0 Band Neutrophils % 2.0 L Lymphocytes % (Manual) 15.0 L Monocytes % (Manual) 3.0 Eosinophils % (Manual) 17.0 H Metamyelocytes % 1.0 H Neutrophils # (Manual) 7104 H Platelet Estimate RBC Morphology See below Poikilocytosis Anisocytosis 1+ H Schistocytes 2+ H PT INR APTT Sodium 138 Potassium 2.5 L* Chloride 105 Carbon Dioxide 28 BUN 21 H Creatinine 1.18 Estimated GFR > 60 BUN/Creatinine Ratio 17.8 Glucose 98 Lactate 2.9 H Calcium 7.8 L Iron TIBC % Saturation Transferrin Total Bilirubin 1.2 AST 23 ALT 15 Alkaline Phosphatase 153 H Total Creatine Kinase CK-MB (CK-2) CK-MB (CK-2) Rel Index Troponin I NT-Pro-B Natriuret Pep Total Protein 6.4 Albumin 2.6 L Globulin 3.8 Albumin/Globulin Ratio 0.7 L Vitamin B12 Folate SARS-CoV-2 (PCR) Blood Type Antibody Screen Crossmatch 12/28/21 12/28/21 12/28/21 14:45 14:45 15:25 WBC RBC Hgb 8.3 L Hct 25.4 L MCV MCH MCHC RDW Plt Count Neut % (Auto) Lymph % (Auto) [place] % (Auto) Eos % (Auto) Baso % (Auto) Lymph # (Auto) [place] # (Auto) Baso # (Auto) Total Counted Seg Neutrophils % Band Neutrophils % Lymphocytes % (Manual) Monocytes % (Manual) Eosinophils % (Manual) Metamyelocytes % Neutrophils # (Manual) Platelet Estimate RBC Morphology Poikilocytosis Anisocytosis Schistocytes PT 26.9 H INR 2.4 H APTT 34 D Sodium Potassium Chloride Carbon Dioxide BUN Creatinine Estimated GFR BUN/Creatinine Ratio Glucose Lactate Calcium Iron TIBC % Saturation Transferrin Total Bilirubin AST ALT Alkaline Phosphatase Total Creatine Kinase CK-MB (CK-2) CK-MB (CK-2) Rel Index Troponin I NT-Pro-B Natriuret Pep Total Protein Albumin Globulin Albumin/Globulin Ratio Vitamin B12 Folate SARS-CoV-2 (PCR) Blood Type B Positive Antibody Screen Negative Crossmatch See Detail 12/28/21 12/28/21 12/28/21 15:25 15:25 16:25 WBC RBC Hgb Hct MCV MCH MCHC RDW Plt Count Neut % (Auto) Lymph % (Auto) [place] % (Auto) Eos % (Auto) Baso % (Auto) Lymph # (Auto) [place] # (Auto) Baso # (Auto) Total Counted Seg Neutrophils % Band Neutrophils % Lymphocytes % (Manual) Monocytes % (Manual) Eosinophils % (Manual) Metamyelocytes % Neutrophils # (Manual) Platelet Estimate RBC Morphology Poikilocytosis Anisocytosis Schistocytes PT INR APTT Sodium 139 Potassium 2.6 L* Chloride 106 Carbon Dioxide 28 BUN 22 H Creatinine 1.23 Estimated GFR 59 L BUN/Creatinine Ratio 17.9 Glucose 87 Lactate Calcium 7.8 L Iron TIBC % Saturation Transferrin Total Bilirubin AST ALT Alkaline Phosphatase Total Creatine Kinase 35 L CK-MB (CK-2) TNP CK-MB (CK-2) Rel Index TNP Troponin I 0.014 NT-Pro-B Natriuret Pep 1300 H Total Protein Albumin Globulin Albumin/Globulin Ratio Vitamin B12 Folate SARS-CoV-2 (PCR) Negative Blood Type Antibody Screen Crossmatch 12/28/21 12/29/21 12/29/21 17:21 05:08 05:08 WBC 12.4 H RBC 2.87 L Hgb 7.5 L Hct 22.7 L MCV 79.2 L MCH 26.2 MCHC 33.1 RDW 22.0 H Plt Count 53 L Neut % (Auto) Not Reportable Lymph % (Auto) Not Reportable [place] % (Auto) Not Reportable Eos % (Auto) Not Reportable Baso % (Auto) Not Reportable Lymph # (Auto) Not Reportable [place] # (Auto) Not Reportable Baso # (Auto) Not Reportable Total Counted 100 Seg Neutrophils % 53.0 Band Neutrophils % 3.0 Lymphocytes % (Manual) 15.0 L Monocytes % (Manual) 5.0 Eosinophils % (Manual) 24.0 H Metamyelocytes % Neutrophils # (Manual) 6944 H Platelet Estimate Decreased on smear RBC Morphology See below Poikilocytosis 2+ H Anisocytosis 3+ H D Schistocytes 2+ H PT INR APTT Sodium 135 L Potassium 3.2 L Chloride 105 Carbon Dioxide 29 BUN 19 Creatinine 1.10 Estimated GFR > 60 BUN/Creatinine Ratio 17.3 Glucose 92 Lactate 1.3 Calcium 7.7 L Iron TIBC % Saturation Transferrin Total Bilirubin AST ALT Alkaline Phosphatase Total Creatine Kinase CK-MB (CK-2) CK-MB (CK-2) Rel Index Troponin I NT-Pro-B Natriuret Pep Total Protein Albumin Globulin Albumin/Globulin Ratio Vitamin B12 820 Folate 8.1 SARS-CoV-2 (PCR) Blood Type Antibody Screen Crossmatch 12/29/21 05:08 WBC RBC Hgb Hct MCV MCH MCHC RDW Plt Count Neut % (Auto) Lymph % (Auto) [place] % (Auto) Eos % (Auto) Baso % (Auto) Lymph # (Auto) [place] # (Auto) Baso # (Auto) Total Counted Seg Neutrophils % Band Neutrophils % Lymphocytes % (Manual) Monocytes % (Manual) Eosinophils % (Manual) Metamyelocytes % Neutrophils # (Manual) Platelet Estimate RBC Morphology Poikilocytosis Anisocytosis Schistocytes PT INR APTT Sodium Potassium Chloride Carbon Dioxide BUN Creatinine Estimated GFR BUN/Creatinine Ratio Glucose Lactate Calcium Iron 61 D TIBC 168 L % Saturation 36 D Transferrin 118 L Total Bilirubin AST ALT Alkaline Phosphatase Total Creatine Kinase CK-MB (CK-2) CK-MB (CK-2) Rel Index Troponin I NT-Pro-B Natriuret Pep Total Protein Albumin Globulin Albumin/Globulin Ratio Vitamin B12 Folate SARS-CoV-2 (PCR) Blood Type Antibody Screen Crossmatch [facility] Medical History Atrial fibrillation Atrial flutter Barretts esophagus CHF (congestive heart failure) Chronic cough Degenerative arthritis GERD (gastroesophageal reflux disease) GI bleed History of cardioversion Iron deficiency anemia Spinal stenosis of lumbar region with neurogenic claudication Surgical History History of coronary angioplasty with insertion of stent Hx of cholecystectomy Hx of tonsillectomy Social History household members: spouse Smoking Status: Never smoker alcohol intake: never Assessment & Plan Assessment & Plan narrative: Hypokalemia. Still low. Etiology is somewhat unclear at this time. Will give 4 more K riders recheck this afternoon. Re-evaluate at that time. Hopefully can to oral after that. May need to go home on medicine Anemia. Patient with guaiac-negative for me this morning. But significantly lower. Were not giving him fluid. Etiology somewhat unclear at this time. Will see what next guaiac shows. Will hold off on consulting for colonoscopy. His upper evaluation previously was only for no active disease. He is on PPI. Due to the fact that he dropped 2 more points will replace with 2 units. Recheck this afternoon and then the morning. Discussed with patient. He understands. Abnormal CT scan. Continues to look likes fibrosis. There is a number of findings some of which point to infection but he does not act definitively infected. Does have a slight white count but no fever no other respiratory counts. Will need to follow. Certainly some changes would treat which would probably be more of an atypical issue. Patient will need outpatient pulmonology without question. No other changes. Acute kidney from injury in the past. Appears to be stable. Will follow. Atrial fibrillation. Patient is off of his Eliquis. Due to his bleeding. Will not have any other changes. Says overall doing well on metoprolol. Hyperlipidemia. Continue atorvastatin. Code status DNR. GI prophylaxis. On PPI. DVT prophylaxis. SCDs. Patient with active possible bleeding and will not cover with either his Eliquis or Lovenox. Greater than 30 minute spent with patient and reviewing chart evaluation dictation orders Time Spent With Patient Critical Care time: I spent a total of [] minutes of critical care time on this patient's care today; this time is exclusive of procedural time. Quality VTE Deep Vein Thrombosis/Pulmonary Embolism Present on Admission: No
--- NOTE | 2021-12-29 11:00 | CM.DANOTE ---
Patient is an 81 yo male who was admitted on 12/28/21 for SOB. Pt has [facility] for insurance and his PCP is Dr. Willy Pineda. EMR was reviewed. Per , pt with hx of CHF, AFIB and GI Bleeds and admitted for hypokalemia and anemia and likely to have blood transfusion. SW met bedside with pt and explained role. He is currently on oxygen, does not use at home. He resides in [facility] with his spouse, Breanna. He is independent, but does have a cane and walker for home use. Pt states his two sons are currently in [place] and [place] and his Dtr is in [place] and they recently moved to [facility] and have limited support system in [facility] and therefore spouse is reaching out to the people she knows in [place]. Spouse does not drive and pt typically drives and therefore may need taxi or friend transport at d/c. Pt was recently admitted in September 2021 this year and discharged to [facility] for rehab and pt feels his stay at [facility] went well and was very helpful. Pt then discharged home a couple weeks ago with romeo Ramirez referral and pt states he made great progress and [facility] recently discharged him for services. Pt denies any other supportive services currently in place and is hopeful to d/c home at discharge as he feels better than when I was admitted in September. Pt may benefit from PT orders for eval when more medically appropriate after transfusion but pt may be mobile enough with nursing staff at that time. Plan: SW to follow closely for progress towards confirming safe d/c plan of home with spouse (via taxi or friend POV) and possible need for PT eval to determine any further discharge planning needs. ALYSSA Valdes Discharge Planning/Care Management CM Discharge Assessment Start: 12/29/21 10:57 Freq: Status: Active Protocol: Document 12/29/21 10:58 BF (Rec: 12/29/21 11:00 BF [id number]) Discharge Planning Assessment Assigned Belt Lacer ALYSSA Arzola DPOA/Assigned Designee Name spouse Breanna Contact Information [phone] Advance Directives? Yes: Polst Advance Directives on File No History Provided By Patient,Medical Record Has Patient been admitted in last 30 No days? Comment last admit in September 2021 this year and went to [facility] Prior Living Arrangements House Household Members spouse Type of transporation used prior to Drives own vehicle admit Independent with ADL's Yes Is patient alert and oriented? Yes Needs Assistance With Home Chores / Shopping Caregiver for Another No Comment Recently open with [facility] but not currently open Comment Pending PT/OT eval Barriers to Discharge No Discharge Plan Home Transportation Arrangement Spouse does not drive, may need cab or friend Additional Comment Pending PT/OT recommendations Whiteboard Updated in Patient Room with Yes name and ext. # of Belt Lacer Review Status In Process Please Provide Date Initial DC 12/29/21 Assessment Was Performed Next Review Type Continued Stay Review
[2021-12-29 20:17] LABS: Hematocrit 31.8 % (41-53); Hemoglobin 10.5 g/dL (13.5-17.5); Mean Corpuscular Hemoglobin 26.9 PG (26-34); Mean Corpuscular Volume 81.4 fL (80-100); Platelet Count 38 X10^3/uL (150-400); Red Blood Cell Count 3.91 X10^6/uL (4.5-5.9); Red Cell Distribution Width 20.4 % (11.6-14.8); White Blood Cell Count 14.2 X10^3/uL (4.5-11.0)
[2021-12-29 20:19] LABS: Add Manual Diff / Slide Review YES
[2021-12-29 21:10] LABS: Anisocytosis 3+; Neutrophils Absolute Manual 5964 /uL (3000-5900); Total Cells Counted 100
[2021-12-29 21:11] LABS: Poikilocytosis 1+; Polychromasia 1+; Schistocytes 1+; Spherocytes 2+
[2021-12-30] VITALS (16 sets, daily range): BP systolic 133–179; BP diastolic 74–97; PULSE 68–78; RESP 16–18; TEMP 36.8–37.9; O2SAT 92–96
[2021-12-30 05:07] LABS: Basophils Absolute Auto 200 /uL (0-100); Basophils Percent Auto 1.4 % (0-2); Eosinophils Absolute Auto 4100 /uL (0-450); Hematocrit 30.6 % (41-53); Hemoglobin 10.5 g/dL (13.5-17.5); Lymphocytes Absolute Auto 1400 /uL (1100-4500); Lymphocytes Percent Auto 10.2 % (25-40); Mean Corpuscular HGB Conc 34.3 % (30-36); Mean Corpuscular Hemoglobin 27.3 PG (26-34); Mean Corpuscular Volume 79.5 fL (80-100); Monocytes Absolute Auto 1100 /uL (0-900); Neutrophils Absolute Auto 6900 /uL (1500-7000); Neutrophils Percent Auto 50.4 % (50-75); Red Blood Cell Count 3.85 X10^6/uL (4.5-5.9); White Blood Cell Count 13.8 X10^3/uL (4.5-11.0)
[2021-12-30 05:24] LABS: Alanine Aminotransferase 15 IU/L (<50); Albumin 2.3 g/dL (3.5-5.0); Albumin Globulin Ratio 0.6 (1.0-2.8); Alkaline Phosphatase 136 U/L (38-126); Aspartate Aminotransferase 32 IU/L (17-59); BUN Creatinine Ratio 20.2 (6-22); Bilirubin Total 2.1 mg/dL (0.2-1.3); Blood Urea Nitrogen 20 mg/dL (9-20); Calcium 7.4 mg/dL (8.4-10.2); Carbon Dioxide 28 mmol/L (22-32); Chloride 106 mmol/L (98-107); Estimated Glomerular Filt Rate > 60 mL/min (>60); Globulin 3.6 g/dL (1.7-4.1); Glucose 104 mg/dL (80-110); HEMOLYSIS < 15 (0-50); Potassium 3.3 mmol/L (3.4-5.1); Sodium 135 mmol/L (137-145); Total Protein 5.9 g/dL (6.3-8.2)
[2021-12-30 05:58] LABS: Add Manual Diff / Slide Review SLIDE REVIEW; Platelet Count 32 X10^3/uL (150-400)
[2021-12-30 07:50] LABS: Anisocytosis 2+; Poikilocytosis 2+
[2021-12-30] MEDS: METOPROLOL ER 25 MG TABLET 12.5 MG PO ×2 (08:16→19:50)
[2021-12-30] MEDS: ATORVASTATIN 20 MG TABLET 40 MG PO (08:16)
[2021-12-30] MEDS: POTASSIUM CHLORIDE 20 MEQ TAB 40 MEQ PO ×2 (11:17→18:28)
[2021-12-30] MEDS: polyethylene glycoL 3350 17 GM POWD.PACK PO (14:00)
[2021-12-30] MEDS: MAGNESIUM HYDROXIDE 30 ML UDC PO (14:00)
--- NOTE | 2021-12-30 15:19 | CM.DPC ---
DCP Cont: Per Dr. Pineda, pt needing HH. DCP sent referral to [facility] as pt has been under their services in the past. Per MD, pt could discharge home tonight depending on labs. DCP to continue to follow. P: Once medically cleared by MD, pt to discharge home via friend POV. Jennifer James RN/DONNAP
[2021-12-30 15:52] LABS: Hematocrit 31.1 % (41-53); Hemoglobin 10.4 g/dL (13.5-17.5); Mean Corpuscular HGB Conc 33.6 % (30-36); Mean Corpuscular Volume 80.3 fL (80-100); Platelet Count 65 X10^3/uL (150-400); Red Blood Cell Count 3.87 X10^6/uL (4.5-5.9); Red Cell Distribution Width 20.9 % (11.6-14.8); White Blood Cell Count 14.7 X10^3/uL (4.5-11.0)
--- NOTE | 2021-12-30 17:28 | PM.PN.1 ---
Subjective Subjective Date Patient Seen: 12/30/21 Time Patient Seen: 09:00 Interval history: Did Ok overnight hemoglobin remains stable however platelets did drop to 30s so transfusion was ordered still no obvious source of bleeding feeling hungry this morning Exam Vital Signs (past 8 hours): - 12/30/21 09:30 12/30/21 10:00 12/30/21 11:08 Temperature 98.2 F 98.8 F Pulse Rate 74 69 Respiratory Rate 17 18 Blood Pressure 138/74 133/77 Pulse Oximetry 94 93 12/30/21 11:37 12/30/21 14:02 12/30/21 15:25 Temperature 98.4 F 99.0 F Pulse Rate 68 70 Respiratory Rate 18 18 Blood Pressure 154/81 H 155/77 H Pulse Oximetry 93 96 Oxygen Delivery Method Room Air Oxygen Flow Rate 0 Const Other: slender elder devouring breakfast with gusto Eyes General: appearance normal, both eyes and all related structures Neck Neck: normal visual inspection and full ROM Resp Effort & Inspection: normal respiratory effort and able to speak in complete sentences Auscultation: clear to auscultation bilaterally Cardio Other: regular rate S1/S2 GI Other: soft nontender nondistended Skin General: no rashes or lesions noted Neuro General: patient alert, patient awake, patient oriented x3 and CN's II-XI intact bilaterally Extrem General: normal to inspection and no pedal edema Psych Appearance: grossly normal and well kempt Mental Status: mental status grossly normal Objective Labs Result Diagrams: 12/30/21 15:43 12/30/21 04:35 Labs: Laboratory Results - last 24 hr 12/28/21 12/29/21 12/30/21 14:45 19:46 04:35 WBC 14.2 H 13.8 H RBC 3.91 L 3.85 L Hgb 10.5 L 10.5 L Hct 31.8 L 30.6 L MCV 81.4 79.5 L MCH 26.9 27.3 MCHC 33.0 34.3 RDW 20.4 H 20.0 H Plt Count 38 L 32 L* Neut % (Auto) Not Reportable 50.4 Lymph % (Auto) Not Reportable 10.2 L [place] % (Auto) Not Reportable 8.0 Eos % (Auto) Not Reportable 30.0 H Baso % (Auto) Not Reportable 1.4 Neut # (Auto) 6900 Lymph # (Auto) Not Reportable 1400 [place] # (Auto) Not Reportable 1100 H Eos # (Auto) 4100 H Baso # (Auto) Not Reportable 200 H Total Counted 100 Seg Neutrophils % 40.0 Band Neutrophils % 2.0 L Lymphocytes % (Manual) 9.0 L Atypical Lymphs % 2.0 H Monocytes % (Manual) 4.0 Eosinophils % (Manual) 39.0 H Metamyelocytes % 1.0 H Myelocytes % 3.0 H Neutrophils # (Manual) 5964 H RBC Morphology See below Not Reportable Polychromasia 1+ H Poikilocytosis 1+ H 2+ H Anisocytosis 3+ H 2+ H Spherocytes 2+ H Schistocytes 1+ H Sodium Potassium Chloride Carbon Dioxide BUN Creatinine Estimated GFR BUN/Creatinine Ratio Glucose Calcium Total Bilirubin AST ALT Alkaline Phosphatase Total Protein Albumin Globulin Albumin/Globulin Ratio Blood Type B Positive Antibody Screen Negative Crossmatch See Detail 12/30/21 12/30/21 04:35 15:43 WBC 14.7 H RBC 3.87 L Hgb 10.4 L Hct 31.1 L MCV 80.3 MCH 27.0 MCHC 33.6 RDW 20.9 H Plt Count 65 L Neut % (Auto) Lymph % (Auto) [place] % (Auto) Eos % (Auto) Baso % (Auto) Neut # (Auto) Lymph # (Auto) [place] # (Auto) Eos # (Auto) Baso # (Auto) Total Counted Seg Neutrophils % Band Neutrophils % Lymphocytes % (Manual) Atypical Lymphs % Monocytes % (Manual) Eosinophils % (Manual) Metamyelocytes % Myelocytes % Neutrophils # (Manual) RBC Morphology Polychromasia Poikilocytosis Anisocytosis Spherocytes Schistocytes Sodium 135 L Potassium 3.3 L Chloride 106 Carbon Dioxide 28 BUN 20 Creatinine 0.99 Estimated GFR > 60 BUN/Creatinine Ratio 20.2 Glucose 104 Calcium 7.4 L Total Bilirubin 2.1 H AST 32 ALT 15 Alkaline Phosphatase 136 H Total Protein 5.9 L Albumin 2.3 L Globulin 3.6 Albumin/Globulin Ratio 0.6 L Blood Type Antibody Screen Crossmatch [facility] Medical History Atrial fibrillation Atrial flutter Barretts esophagus CHF (congestive heart failure) Chronic cough Degenerative arthritis GERD (gastroesophageal reflux disease) GI bleed History of cardioversion Iron deficiency anemia Spinal stenosis of lumbar region with neurogenic claudication Surgical History History of coronary angioplasty with insertion of stent Hx of cholecystectomy Hx of tonsillectomy Social History household members: spouse Smoking Status: Never smoker alcohol intake: never Assessment & Plan Assessment & Plan narrative: #thrombocytopenia down to 30s this morning, now s/p xfusion of platelets, seems ok monitor adn recheck in am #Hypokalemia Improving s/p multiple K riders doing better switch to orals and monitor #Anemia.? Patient guaiac-negative reports no further BMs, Hgb stable s/p xfusions. holding all anticoagulants no sign of bleeding, monitor #Abnormal CT scan suggestive of pulmonary fibrosis There is a number of findings some of which point to infection but he does not act definitively infected.? Does have a slight white count but no fever no other respiratory counts.? Will need to follow.? Certainly some changes would treat which would probably be more of an atypical issue.? Patient will need outpatient pulmonology without question.? No other changes.? #Acute kidney injury improved monitor #Atrial fibrillation Patient is off of his Eliquis.? Due to his bleeding.? Will not have any other changes.? Says overall doing well on metoprolol for rate control feels ok.? #Hyperlipidemia Continue home atorvastatin.? Dispo: pending PT radha byrdyves, likely home if hgb and platelets stable Code status DNR.? GI prophylaxis.? On PPI.? DVT prophylaxis.? SCDs.?hold all anticoagulation given possible bleed Time Spent With Patient Critical Care time: I spent a total of [] minutes of critical care time on this patient's care today; this time is exclusive of procedural time. Quality VTE Deep Vein Thrombosis/Pulmonary Embolism Present on Admission: No
[2021-12-30] MEDS: BISACODYL 10 MG SUPP PR (18:28)
[2021-12-30] MEDS: SODIUM CHLORIDE 0.9% FLUSH 10 ML IV (20:43)
[2021-12-31] VITALS (10 sets, daily range): BP systolic 103–130; BP diastolic 63–77; PULSE 69–78; RESP 16–18; TEMP 36.7–37.2; O2SAT 92–94
[2021-12-31 05:42] LABS: Mean Corpuscular HGB Conc 33.4 % (30-36); Mean Corpuscular Hemoglobin 26.8 PG (26-34); Platelet Count 43 X10^3/uL (150-400); Red Blood Cell Count 4.12 X10^6/uL (4.5-5.9); Red Cell Distribution Width 20.8 % (11.6-14.8); White Blood Cell Count 14.6 X10^3/uL (4.5-11.0)
[2021-12-31 06:01] LABS: Alanine Aminotransferase 17 IU/L (<50); Albumin 2.4 g/dL (3.5-5.0); Albumin Globulin Ratio 0.6 (1.0-2.8); Alkaline Phosphatase 163 U/L (38-126); Aspartate Aminotransferase 35 IU/L (17-59); BUN Creatinine Ratio 19.8 (6-22); Bilirubin Total 2.1 mg/dL (0.2-1.3); Blood Urea Nitrogen 19 mg/dL (9-20); Calcium 7.9 mg/dL (8.4-10.2); Carbon Dioxide 29 mmol/L (22-32); Chloride 105 mmol/L (98-107); Estimated Glomerular Filt Rate > 60 mL/min (>60); Glucose 91 mg/dL (80-110); HEMOLYSIS < 15 (0-50); Potassium 4.6 mmol/L (3.4-5.1); Sodium 136 mmol/L (137-145); Total Protein 6.4 g/dL (6.3-8.2)
[2021-12-31] MEDS: PANTOPRAZOLE DR 40 MG TABLET PO ×2 (07:03→21:38)
[2021-12-31 07:25] LABS: Add Manual Diff / Slide Review YES
[2021-12-31 08:12] LABS: Neutrophils Absolute Manual 8614 /uL (3000-5900); Total Cells Counted 100
[2021-12-31 08:14] LABS: Anisocytosis 2+; Schistocytes 2+
[2021-12-31] MEDS: ATORVASTATIN 20 MG TABLET 40 MG PO (09:00)
[2021-12-31] MEDS: METOPROLOL ER 25 MG TABLET 12.5 MG PO ×2 (09:00→21:38)
[2021-12-31] MEDS: SODIUM CHLORIDE 0.9% FLUSH 10 ML IV ×2 (09:02→21:39)
[2021-12-31] MEDS: FUROSEMIDE 40 MG/4 ML VIAL 20 MG IV (09:45)
[2021-12-31] MEDS: cefTRIAXone 1,000 MG in SODIUM CHLORIDE 0.9% 100 ML 200 MG IV (09:46)
--- NOTE | 2021-12-31 11:25 | PT.IIE ---
Current Diagnoses Hypokalemia (12/28/21) Surgical History (Last Reviewed 12/28/21 @ 20:27 by Federico Hunt MD) History of coronary angioplasty with insertion of stent Hx of cholecystectomy Hx of tonsillectomy Medical History (Last Reviewed 12/28/21 @ 20:27 by Federico Hunt MD) Atrial fibrillation Atrial flutter Barretts esophagus CHF (congestive heart failure) Chronic cough Degenerative arthritis GERD (gastroesophageal reflux disease) GI bleed History of cardioversion Iron deficiency anemia Spinal stenosis of lumbar region with neurogenic claudication Physical Therapy Inpatient Evaluation/Re-Eval M1 PT/OT-IP Prior Functional Status Start: 12/31/21 13:34 Freq: NEEDED Status: Active Protocol: Document 12/31/21 11:25 AB (Rec: 12/31/21 13:44 AB [id number]) Medical Review Prior Functional Status Medical History Reviewed Yes Communication able to make needs known Mobility and Gait pt staetd that he is modified independent with all mobilities and ambulation using 4WW Social History Household Members spouse Living Arrangements House Number of Floors (Floors) One Floor Number of Stairs To Enter/Railing? has 3 steps with L rail descending down to living room Home Environment High Toilet Home Equipment Four Wheel Walker,Tub Transfer Bench,Hand Held Shower,Grab Bars Near Toilet,Grab Bars In Shower Additional Social History Comment has an adjustable bed M2 PT-IP Current Condition Start: 12/31/21 13:34 Freq: NEEDED Status: Active Protocol: Document 12/31/21 11:25 AB (Rec: 12/31/21 13:44 AB [id number]) Physical Therapy Current Condition Current Condition Evaluation Date 12/31/21 Treatment Diagnosis anemia; difficulty in walking Onset Date 12/28/21 M3 PT-IP Subjective Start: 12/31/21 13:34 Freq: NEEDED Status: Active Protocol: Document 12/31/21 11:25 AB (Rec: 12/31/21 13:44 AB [email or web address]) Subjective Physical Therapy Visit Type Type Initial Evaluation Visit Start Time 11:25 Visit Stop Time 12:00 Total Visit Minutes 35 Number of PERSONAL COMPANION Visits 0 Physical Therapy Visit Comments Patient Comments agreeable to do PT; requested to use the toilet Therapy Pain Assessment Pain Present Pain Present Denied Pain M4 PT-IP Mobility and Gait Start: 12/31/21 13:34 Freq: NEEDED Status: Active Protocol: Document 12/31/21 11:25 AB (Rec: 12/31/21 13:44 AB [id number]) PT-Bed Mobility Assessment Supine to Sit Supine to Sit Minimal Assistance PT-Transfer Assessment Sit to and From Stand Sit to and from Stand Maximum Assistance,1 Person Assistance,Use of Upper Extremities Equipment Transfer Assistive Device Gait Belt,Front Wheeled Walker Orthotic/Prosthetic Devices or Brace: No Transfers Transfer Destination Toilet Transfer Technique ambulated Transfer Ability Level of Assist Maximum Assistance,1 Person Assistance,Use of Upper Extremities Comments Mobility Comments completed supine to sit min A and cues. requested to use the toilet. completed sit to stand max A and cues and ambulated to the toilet max A using FWW. presents with unsteady gait with increase stooped posture. pt assisted with brief management. max A for controlled descent to the toilet. NAC informed that pt needs assistance for hygiene care. pt completed sit <> stand x 4 for hygiene care max A for standing balance using FWW for support. pt with decrease activity tolerance needing seated rest breaks in between tasks. completed step transfer from the toilet to the chair using FWW max A and max cues. positioned pt on the chair. call light and table placed within reach. Gait Assessment Gait Gait Assistance Required: Maximum Assistance Distance (Feet) 12 Able to Maintain Weight Bearing Status Yes During Gait Assistive Devices Assistive Device Gait Belt,Front Wheeled Walker Orthotic/Prosthetic Devices or Brace: No Gait Deviations General Gait Pattern Decreased Stride Length, Decreased Feet Clearance, Flexed Trunk,Step-to Gait Factors Limiting Gait Function Factors Limiting Gait Function Decreased Activity Tolerance, Decreased Strength,Difficulty Following Directions,Poor Balance,Poor Safety Awareness PT-Balance Assessment Sitting Balance and Reactions Static Sitting Balance Ability Good Dynamic Sitting Balance Ability Fair Standing Balance and Reactions Static Standing Balance Ability Poor Dynamic Standing Balance Ability Poor Device Used FWW M5 PT-IP Objective Assessments Start: 12/31/21 13:34 Freq: NEEDED Status: Active Protocol: Document 12/31/21 11:25 AB (Rec: 12/31/21 13:44 AB [id number]) Orientation Orientation/Cognition Level of Alertness Alert Orientation Name,Place,Situation Language Function Ability No Deficits Noted Safety Awareness Decreased Safety Awareness Memory Description No Deficits Noted Gross Range of Motion Lower Extremity ROM Assessment Within Functional Limits Strength Lower Extremity Strength Assessment Bilaterally Impaired Hip 4-/5 Knee 3+/5 Muscle Tone Muscle Tone WNL Yes M6 PT-IP Treatment Start: 12/31/21 13:34 Freq: NEEDED Status: Active Protocol: Document 12/31/21 11:25 AB (Rec: 12/31/21 13:44 AB [id number]) Physical Therapy Treatment Education Education Provided Safety M7 PT-IP Assessment and Plan Start: 12/31/21 13:34 Freq: NEEDED Status: Active Protocol: Document 12/31/21 11:25 AB (Rec: 12/31/21 13:44 AB [id number]) PT Summary Assessment and Plan Potential Rehabilitation Potential Fair Status of Condition at Evaluation Evolving Summary Impairments Pain,ROM,Strength,Balance, Coordination,Sensation,Tone, Cognition,Bed Mobility, Transfers,Gait,Activity Tolerance Assessment Summary pt requiring max A with mobility using FWW and unable to tolerate much activity requiring frequent seated breaks in between tasks. pt will require SNF rehab at this time. will continue to assess progress and when appropriate, conduct caregiver training and stair cllimbing training. Goals Bed Mobility Goal Independent Transfer Goal Standby Assistance,Front Wheeled Walker,Four Wheeled Walker Gait Goal Standby Assistance,Front Wheel Walker Gait Distance 100 Other Goals improve ambulation using 4WW ~ 200 ft SBA up/down 3 steps R rail ascending SBA Days to Meet Goals 10 Frequency of Treatment Frequency Of Treatment Once a Day Treatment Plan Physical Therapy Treatment Plan Bed Mobility Training,Transfer Training,Gait Training, Therapeutic Exercise,Balance Retraining,Discharge Planning, Hot or Cold Pack,Neuromuscular Re-ed,Coordination Retraining Recommendations To Nursing Amount of Assist Needed 1 Person Assist Discharge Recommendations PT Discharge Recommendations Home with 14/02 Assist Available,Home Health,SNF Rehab,Home vs SNF Equipment Needed for Home Before FWW if not safe with 4WW Discharge Transportation Needs at Discharge Private Vehicle,Wheelchair/ Cabulance
--- NOTE | 2021-12-31 14:52 | OT.IP.EVAL ---
Current Diagnoses Hypokalemia (12/28/21) Past Medical History (Last Reviewed 12/28/21 @ 20:27 by Federico Hunt MD) Atrial fibrillation Atrial flutter Barretts esophagus CHF (congestive heart failure) Chronic cough Degenerative arthritis GERD (gastroesophageal reflux disease) GI bleed History of cardioversion Iron deficiency anemia Spinal stenosis of lumbar region with neurogenic claudication Surgical History (Last Reviewed 12/28/21 @ 20:27 by Federico Hunt MD) History of coronary angioplasty with insertion of stent Hx of cholecystectomy Hx of tonsillectomy Occupational Therapy Inpatient Evaluation/Re-Eval M1 PT/OT-IP Prior Functional Status Start: 12/31/21 13:34 Freq: NEEDED Status: Active Protocol: Document 12/31/21 14:56 [facility] (Rec: 12/31/21 15:13 [facility] [id number]) Medical Review Prior Functional Status Medical History Reviewed Yes Communication able to make needs known Mobility and Gait pt stated that he is modified independent with all mobilities and ambulation using 4WW Activities of Daily Living and IADL's Pt states use of LB dressing equipment to assist to get dressed at home but able to do on his own. Social History Household Members spouse Living Arrangements House Number of Floors (Floors) One Floor Number of Stairs To Enter/Railing? has 3 steps with L rail descending down to living room Home Environment High Toilet Home Equipment Four Wheel Walker,Tub Transfer Bench,Hand Held Shower,Grab Bars Near Toilet,Grab Bars In Shower Additional Social History Comment has an adjustable bed M2 OT-IP Current Condition Start: 12/31/21 14:56 Freq: Status: Active Protocol: Document 12/31/21 14:56 [facility] (Rec: 12/31/21 15:13 [facility] [id number]) Occupational Therapy Current Condition Current Condition Evaluation Date 12/31/21 Treatment Diagnosis Hypokalemia, Anemia, decreased mobility M3 OT- IP Subjective and Pain Start: 12/31/21 14:56 Freq: Status: Active Protocol: Document 12/31/21 14:56 [facility] (Rec: 12/31/21 15:13 [facility] [id number]) OT- Subjective Occupational Therapy Visit Type Type Initial Evaluation Visit Start Time 14:27 Visit Stop Time 14:52 Total Visit Minutes 25 Occupational Therapy Visit Comments Patient Comments Pt needing encouragement and then agreed to get up out of bed. Patient/Caregiver Goals To go home. OT Pain Assessment Pain When Pain Assessed At Rest Pain Present Pain Present Denied Pain M4 OT- IP ADL's Start: 12/31/21 14:56 Freq: Status: Active Protocol: Document 12/31/21 14:56 [facility] (Rec: 12/31/21 15:13 [facility] [id number]) OT THI-Yndi-Ueschig Comments OT Self-Feeding Comments NOt at meal time. OT ADL-Grooming General Evaluation Grooming Ability Standby Assistance Areas Needing Assistance Retrieving/Set-up of Grooming Items Comments OT Grooming Comments Able to do while seated at the edge of the bed after set-up. OT ADL-Oral Care General Eval Oral Care Ability Independent Comments Oral Care Comments Able to do while seated at the edge of the bed. Trying to have pt stand at the sink with FWW and too tired to stand. OT ADL-Dressing General Eval Lower Body Dressing Ability Maximum Assistance Areas Needing Assistance Socks Comments OT Dressing Comments Pt states uses LB dressing equipment at home to assist. OT ADL-Toileting General Evaluation Toileting Ability Minimal Assistance Areas Needing Assistance Empty Catheter or Colostomy Comments OT Toileting Comments Assist to help get urinal in place while pt standing . CGA to stand with FWW. OT ADL-Bathing Comments OT Bathing Comments Pt too tired to complete at this time. M5 OT- IP IADL's Start: 12/31/21 14:56 Freq: Status: Active Protocol: Document 12/31/21 14:56 [facility] (Rec: 12/31/21 15:13 [facility] [id number]) OT-Instrumental Activities of Daily Living Home Safety Awareness Home Safety Comments Due to decreased activity tolerance, balance, and overall strength, pt would need assist for all needs at this time as pt tires quickly. Medication Management Medication Management Comments Pt states does his own medications and bills. Meal Preparation Meal Preparation Caregiver Provides Assist Dsp Engineer Dsp Engineer Caregiver Provides Assist M6 OT- IP Functional Cognition Start: 12/31/21 14:56 Freq: Status: Active Protocol: Document 12/31/21 14:56 [facility] (Rec: 12/31/21 15:13 [facility] [id number]) Cognitive Factors Limiting Selfcare Function Cognitive Ability Level of Alertness Alert Patient Orientation Name,Place,Situation Attention Span Ability Capable of Focused Attention, Capable of Sustained Attention Ability to Follow Commands Able to Follow One Step Commands Cognitive Comments Cognitive Assessment Comments Pt able to follow commands for ADl and mobility needs however a little hard of hearing. Continues to assess for cognitive needs. OT- Vision and Hearing OT- Vision Assessment Visual Acuity Glasses All The Time Vision Assessment Comments Pt a little hard of hearing. M7 OT- IP Mobility and Balance Start: 12/31/21 14:56 Freq: Status: Active Protocol: Document 12/31/21 14:56 [facility] (Rec: 12/31/21 15:13 [facility] [id number]) OT- Bed Mobility Assessment Supine to Sit Supine to Sit Assist Minimal Assistance Sit to Supine Sit to Supine Assist Standby Assistance OT-Transfer Assessment Sit to and From Stand Sit to and from Stand Contact Guard Assistance Transfers Transfer Ability Contact Guard Assistance, Minimal Assistance Technique Transfer Destination Bed Transfer Technique Stand Step Pivot Devices Transfer Assistive Devices Gait Belt,Front Wheeled Walker Comments Mobility Comments Pt use of lots of momentum to try to get into long sitting in order to get out of bed, however pt was in the flat position versus pt states usually gets out with the HOB up as he has an adjustable bed at home. Pt CGA to stand from the bed to FWW and able to walk to the sink with CGA and then tiring quickly and needing MARYANN with FWW to get back to bed. O2 on RA from 91% to 94%. Pt's trunk very flexed when up on his feet and needing cues to try to stand upright. OT- Balance Assessment Sitting Balance and Reactions Static Sitting Balance Ability Good Standing Balance and Reactions Static Standing Balance Ability Fair M8 OT- IP Objective Assessments Start: 12/31/21 14:56 Freq: Status: Active Protocol: Document 12/31/21 14:56 [facility] (Rec: 12/31/21 15:13 [facility] [id number]) OT Gross Range of Motion Upper Extremity Range of Motion ROM Impairments grossly WFL OT Strength Comments Strength Comments WFL for web application tester OT- Coordination Assessment Comments Coordination Comments Pt needing assist to help open package for toothbrush and brush. OT-Muscle Tone Assessment Muscle Tone WNL Yes M9 OT- IP Assessment and Plan Start: 12/31/21 14:56 Freq: Status: Active Protocol: Document 12/31/21 14:56 [facility] (Rec: 12/31/21 15:13 [facility] [id number]) OT Summary Assessment and Plan Potential Rehabilitation Potential Good Analytic Complexity at Evaluation Moderate Summary OT Impairments Balance,Functional Mobility, Grooming,Dressing,Toileting, Bathing,Toilet Transfers, Shower Transfers,Activity Tolerance Progress Towards Goals Slow Progress due to Medical Issues,Slow Progress due to Activity Tolerance Assessment Summary Pt MOd complexity and main barriers are steps, decreased activity tolerance, and now needing one person assist for mobility and ADl needs. Pt just able to get to the sink with the FWW before having to sit down as he tires quickly. Pending medical progress and assist at home. Pt may benefit from a short rehab stay versus 24/7 assist and home health. Pt prefers to go home . Goals Grooming Goal Independent Dressing Goal Independent Toileting Goal Independent Bathing Goal Independent Toilet Transfer Goal Independent Shower Transfer Goal Independent Patient/Caregiver Education Goal Demonstrate Energy Conservation and Pacing Days to Meet Goals 10 Frequency of Treatment Frequency Of Treatment Once a Day Treatment Plan OT Treatment Plan ADL Training,Functional Mobility,Patient/Family Education,Discharge Planning Other Treatment Recommendations and Next shower Treatment Focus Discharge Recommendations OT Discharge Recommendations Home with 24/7 Assist Available,Home Health,SNF Rehab,Home vs SNF Transportation Needs at Discharge Private Vehicle,Wheelchair/ Cabulance
--- NOTE | 2021-12-31 21:00 | P.PN_ITS ---
Subjective Subjective Date Patient Seen: 12/31/21 Time Patient Seen: 08:50 Interval history: Doing ok overnight did have bowel movement yesterday feeling ok after platelet transfusion breathing is worse than usual he notes and he feels weak with getting around maricruz l work with PT Exam Vital Signs (past 8 hours): - 12/31/21 17:47 12/31/21 19:38 Temperature 98.5 F Pulse Rate 78 Respiratory Rate 17 Blood Pressure 125/76 Pulse Oximetry 94 92 Oxygen Delivery Method Room Air Oxygen Flow Rate 0 Oxygen Delivery Method Room Air Oxygen Flow Rate 0 Const General: frail appearing HENMT Head: normal to inspection and normocephalic Eyes General: appearance normal, both eyes and all related structures Neck Neck: normal visual inspection and full ROM Resp Other: moving air well breathing fast with bilateral basilar crackles on auscultation Cardio Rate: regular rate Rhythm: abnormal rhythm Heart Sounds: S1 normal and S2 normal GI Other: soft nontender nondistended normal bowel sounds Skin General: no rashes or lesions noted Neuro General: patient alert, patient awake, patient oriented x3, moves all extremities and CN's II-XI intact bilaterally Extrem General: full ROM and no pedal edema Psych Appearance: grossly normal and well kempt Mental Status: mental status grossly normal Speech and Movement: speech and movement normal Objective Labs Result Diagrams: 12/31/21 04:50 12/31/21 04:50 Labs: Laboratory Results - last 24 hr 12/31/21 12/31/21 04:50 04:50 WBC 14.6 H RBC 4.12 L Hgb 11.0 L Hct 33.0 L MCV 80.0 MCH 26.8 MCHC 33.4 RDW 20.8 H Plt Count 43 L Neut % (Auto) Not Reportable Lymph % (Auto) Not Reportable Barren % (Auto) Not Reportable Eos % (Auto) Not Reportable Baso % (Auto) Not Reportable Lymph # (Auto) Not Reportable Barren # (Auto) Not Reportable Baso # (Auto) Not Reportable Total Counted 100 Seg Neutrophils % 56.0 Band Neutrophils % 3.0 Lymphocytes % (Manual) 7.0 L Monocytes % (Manual) 4.0 Eosinophils % (Manual) 29.0 H Metamyelocytes % 1.0 H Neutrophils # (Manual) 8614 H RBC Morphology See below Anisocytosis 2+ H Schistocytes 2+ H Sodium 136 L Potassium 4.6 D Chloride 105 Carbon Dioxide 29 BUN 19 Creatinine 0.96 Estimated GFR > 60 BUN/Creatinine Ratio 19.8 Glucose 91 Calcium 7.9 L Total Bilirubin 2.1 H AST 35 ALT 17 Alkaline Phosphatase 163 H Total Protein 6.4 Albumin 2.4 L Globulin 4.0 Albumin/Globulin Ratio 0.6 L PFSH Medical History Atrial fibrillation Atrial flutter Barretts esophagus CHF (congestive heart failure) Chronic cough Degenerative arthritis GERD (gastroesophageal reflux disease) GI bleed History of cardioversion Iron deficiency anemia Spinal stenosis of lumbar region with neurogenic claudication Surgical History History of coronary angioplasty with insertion of stent Hx of cholecystectomy Hx of tonsillectomy Social History household members: spouse Smoking Status: Never smoker alcohol intake: never Assessment & Plan Assessment & Plan narrative: #thrombocytopenia #acute anemia improved and holding steady after transfusions continue to monitor PT/OT eval and tx today see how his strength is he is fall risk #Hypokalemia s/p repletion continue oral supplements and monitor #Abnormal CT scan suggestive of pulmonary fibrosis possible fluid overload There is a number of findings some of which point to infection but he does not act definitively infected I am concerned at the leukocytosis; some clinical overload evident from crackles; will treat empirically with some lasix and rocephin for now agree patient will need outpatient pulmonology without question.? #Atrial fibrillation ?Patient is off of his Eliquis.? Due to his bleeding.? Will not have any other changes.? Says overall doing well on metoprolol for rate control feels ok.? #Hyperlipidemia Continue home atorvastatin.? Dispo: likely home with franci PT recs Code status DNR.? GI prophylaxis.? On PPI.? DVT prophylaxis.? SCDs.?hold all anticoagulation given possible bleed Time Spent With Patient Critical Care time: I spent a total of [] minutes of critical care time on this patient's care today; this time is exclusive of procedural time. Quality VTE Deep Vein Thrombosis/Pulmonary Embolism Present on Admission: No
[2022-01-01] VITALS (8 sets, daily range): BP systolic 101–136; BP diastolic 51–76; PULSE 62–81; RESP 16–18; TEMP 36.9–37.2; O2SAT 91–98
[2022-01-01] MEDS: PANTOPRAZOLE DR 40 MG TABLET PO ×2 (06:25→20:26)
--- NOTE | 2022-01-01 09:35 | PT.IPTN ---
Current Diagnoses Hypokalemia (12/28/21) Physical Therapy Treatment Note M2 PT-IP Current Condition Start: 12/31/21 13:34 Freq: NEEDED Status: Active Protocol: Document 12/31/21 11:25 [facility] (Rec: 12/31/21 13:44 [facility] [id number]) Physical Therapy Current Condition Current Condition Evaluation Date 12/31/21 Treatment Diagnosis anemia; difficulty in walking Onset Date 12/28/21 M3 PT-IP Subjective Start: 12/31/21 13:34 Freq: NEEDED Status: Active Protocol: Document 01/01/22 09:20 [place] (Rec: 01/01/22 11:10 [place] [id number]) Subjective Physical Therapy Visit Type Type Treatment Note Visit Start Time 09:20 Visit Stop Time 09:35 Total Visit Minutes 15 Notes partial co-treat w/ OT Number of SIDE SHOW ENTERTAINER Visits 1 M4 PT-IP Mobility and Gait Start: 12/31/21 13:34 Freq: NEEDED Status: Active Protocol: Document 01/01/22 09:20 [place] (Rec: 01/01/22 11:10 [place] [id number]) PT-Bed Mobility Assessment Sit to Supine Sit to Supine Moderate Assistance,1 Person Assistance,2 Person Assistance PT-Transfer Assessment Sit to and From Stand Sit to and from Stand Moderate Assistance,2 Person Assistance,Use of Upper Extremities Equipment Transfer Assistive Device Gait Belt,Front Wheeled Walker Orthotic/Prosthetic Devices or Brace: No Transfers Transfer Destination Bed,Chair Transfer Technique ambulated Transfer Ability Level of Assist Moderate Assistance,2 Person Assistance,Use of Upper Extremities Comments Mobility Comments Pt on BSC in shower w/ OT upon arrival and needing assistanc back to bed. Pt reported feeling weak and BP low. Pt Mod A x2 for sit<>stand w/ FWW . He then ambulaed ~10 ft to chair w/ FWW and Mod A x2 w/ extremely flexed posture and was unable to ambulate remaining 3 ft to bed. After sitting, pts BP was 71/44. After ~3 min rest, pt sit<> stand Mod A x2 and performed stand step pivot from chair to bed w/ FWW and max cues. Mod A for sit<>sup for LE elevation into bed. BP supine 84/53. Pt left in bed w/ OT in room and ICE CREAM TRUCK DRIVER aware pt needing to use bed berumen to complete bowel movement. Gait Assessment Gait Gait Assistance Required: Moderate Assistance,2 Person Assist Distance (Feet) 10 Assistive Devices Assistive Device Gait Belt,Front Wheeled Walker Orthotic/Prosthetic Devices or Brace: No Gait Deviations General Gait Pattern Decreased Stride Length, Decreased Feet Clearance, Flexed Trunk,Step-to Gait Factors Limiting Gait Function Factors Limiting Gait Function Decreased Activity Tolerance, Decreased Strength,Difficulty Following Directions,Poor Balance,Poor Safety Awareness Comments Gait Comments Very flexed posture, unable to stand upright. Decreased stride and foot clearance due to weakness. Cues for FWW use. PT-Balance Assessment Sitting Balance and Reactions Static Sitting Balance Ability Good Dynamic Sitting Balance Ability Fair Standing Balance and Reactions Static Standing Balance Ability Poor Dynamic Standing Balance Ability Poor Device Used FWW M5 PT-IP Objective Assessments Start: 12/31/21 13:34 Freq: NEEDED Status: Active Protocol: Document 12/31/21 11:25 [facility] (Rec: 12/31/21 13:44 [facility] [id number]) Orientation Orientation/Cognition Level of Alertness Alert Orientation Name,Place,Situation Language Function Ability No Deficits Noted Safety Awareness Decreased Safety Awareness Memory Description No Deficits Noted Gross Range of Motion Lower Extremity ROM Assessment Within Functional Limits Strength Lower Extremity Strength Assessment Bilaterally Impaired Hip 4-/5 Knee 3+/5 Muscle Tone Muscle Tone WNL Yes M6 PT-IP Treatment Start: 12/31/21 13:34 Freq: NEEDED Status: Active Protocol: Document 01/01/22 09:20 [place] (Rec: 01/01/22 11:10 [place] [id number]) Physical Therapy Treatment Education Education Provided Safety Other Treatments Other Treatment Performed Discussed need for SNF. M7 PT-IP Assessment and Plan Start: 12/31/21 13:34 Freq: NEEDED Status: Active Protocol: Document 01/01/22 09:20 [facility] (Rec: 01/01/22 11:10 [facility] [id number]) PT Summary Assessment and Plan Potential Rehabilitation Potential Fair Status of Condition at Evaluation Evolving Summary Impairments Pain,ROM,Strength,Balance, Coordination,Sensation,Tone, Cognition,Bed Mobility, Transfers,Gait,Activity Tolerance Assessment Summary Pt remains limited by weakness and today very low BP (71/44) . He required Mod A x2 for sit <>stand and could only tolerate ~8-10 ft ambulation w / FWW. He is high fall risk due to weakness, poor balance, and low activity tolerance and is unsafe to return home at this time. Will continue to progress, however at this time he will require SNF to improve strength and functional mobility. Goals Bed Mobility Goal Independent Transfer Goal Standby Assistance,Front Wheeled Walker,Four Wheeled Walker Gait Goal Standby Assistance,Front Wheel Walker Gait Distance 100 Other Goals improve ambulation using 4WW ~ 200 ft SBA up/down 3 steps R rail ascending SBA Days to Meet Goals 10 Frequency of Treatment Frequency Of Treatment Once a Day Treatment Plan Physical Therapy Treatment Plan Bed Mobility Training,Transfer Training,Gait Training, Therapeutic Exercise,Balance Retraining,Discharge Planning, Hot or Cold Pack,Neuromuscular Re-ed,Coordination Retraining Recommendations To Nursing Amount of Assist Needed 1 Person Assist Discharge Recommendations PT Discharge Recommendations Home with 14/02 Assist Available,Home Health,SNF Rehab Transportation Needs at Discharge Private Vehicle,Wheelchair/ Cabulance
--- NOTE | 2022-01-01 09:38 | PM.PN.1 ---
Subjective Subjective Date Patient Seen: 01/01/22 Time Patient Seen: 09:00 Interval history: CC: weakness/SOB Feeling better this morning breathing improved s/p lasix and rocephin however still doesn't feel like he's back to usual with his breathing BP running quite low will reduce metoprolol dose to 6.25 bid today rate is controlled stable off all anticoagulation Exam Vital Signs (past 8 hours): - 01/01/22 04:13 01/01/22 08:45 Temperature 99.0 F 98.4 F Pulse Rate 78 81 Respiratory Rate 16 18 Blood Pressure 136/75 106/58 L Pulse Oximetry 92 91 Oxygen Flow Rate 0 0 Oxygen Delivery Method Room Air Oxygen Flow Rate 0 Const General: cooperative, comfortable, well developed and frail appearing HENMT Head: normal to inspection, normocephalic and atraumatic Eyes General: appearance normal, both eyes and all related structures Resp Other: moving air well speaking full sentences on room air still minimal bibasilar crackles improved from yesterday Cardio Other: regular rate S1/S2 GI Other: soft nontender nondistended Skin General: no rashes or lesions noted Neuro General: patient alert, patient awake, patient oriented x3, moves all extremities and CN's II-XI intact bilaterally Extrem General: normal to inspection, full ROM and no pedal edema Psych Appearance: grossly normal Mental Status: mental status grossly normal Objective Labs Result Diagrams: 01/01/22 09:50 01/01/22 09:50 [facility] Medical History Atrial fibrillation Atrial flutter Barretts esophagus CHF (congestive heart failure) Chronic cough Degenerative arthritis GERD (gastroesophageal reflux disease) GI bleed History of cardioversion Iron deficiency anemia Spinal stenosis of lumbar region with neurogenic claudication Surgical History History of coronary angioplasty with insertion of stent Hx of cholecystectomy Hx of tonsillectomy Social History household members: spouse Smoking Status: Never smoker alcohol intake: never Assessment & Plan Assessment & Plan narrative: #thrombocytopenia #acute anemia improved and holding steady after transfusions and holding anticoagulation still fall risk weak working wtih PT/OT will plan rehab discharge to get strength back #Hypokalemia s/p repletion continue oral supplements and monitor #Abnormal CT scan suggestive of pulmonary fibrosis - possible fluid overload #leukocytosis There is a number of findings some of which point to infection but he does not act definitively infected I am concerned at the leukocytosis; some clinical overload evident from crackles improved with adose of lasix yesterday; continuing rocephin for 3 doses 1 g IV empiric treatment will complete tomorrow morning agree patient will need outpatient pulmonology without question.? #Atrial fibrillation ?Patient is off of his Eliquis due to putative bleeding.?? Metoprolol dose reduced to 6.25 d/t soft BPs, rate controlled #Hyperlipidemia Continue home atorvastatin.? Dispo:dc to [facility] tomorrow planned and set up with CM Code status DNR.? GI prophylaxis.? On PPI.? DVT prophylaxis.? SCDs.?hold all anticoagulation given possible bleed Time Spent With Patient Critical Care time: I spent a total of [] minutes of critical care time on this patient's care today; this time is exclusive of procedural time. Quality VTE Deep Vein Thrombosis/Pulmonary Embolism Present on Admission: No
--- NOTE | 2022-01-01 09:48 | OT.IP.TRT ---
Current Diagnoses Hypokalemia (12/28/21) Occupational Therapy Treatment Note M2 OT-IP Current Condition Start: 12/31/21 14:56 Freq: Status: Active Protocol: Document 12/31/21 14:56 [facility] (Rec: 12/31/21 15:13 [facility] [id number]) Occupational Therapy Current Condition Current Condition Evaluation Date 12/31/21 Treatment Diagnosis Hypokalemia, Anemia, decreased mobility M3 OT- IP Subjective and Pain Start: 12/31/21 14:56 Freq: Status: Active Protocol: Document 01/01/22 09:56 [facility] (Rec: 01/01/22 10:06 [facility] [id number]) OT- Subjective Occupational Therapy Visit Type Type Treatment Note Visit Start Time 08:55 Visit Stop Time 09:48 Total Visit Minutes 53 Occupational Therapy Visit Comments Patient Comments Pt agreed to try to shower today. Patient/Caregiver Goals TO go home but realizes may have to go to skilled rehab. Doctor in the room when pt having low BP 83/50, 89/50 initially and states okay to proceed as long as pt not symptomatic OT Pain Assessment Pain When Pain Assessed At Rest Pain Present Pain Present Denied Pain M4 OT- IP ADL's Start: 12/31/21 14:56 Freq: Status: Active Protocol: Document 01/01/22 09:56 [facility] (Rec: 01/01/22 10:06 [facility] [id number]) OT DBO-Wxpo-Fwhlzip Comments OT Self-Feeding Comments NOt at meal time. OT ADL-Grooming Comments OT Grooming Comments Not performed. OT ADL-Oral Care Comments Oral Care Comments Not performed. OT ADL-Toileting General Evaluation Toileting Ability Total Assistance Areas Needing Assistance Manage Clothing,Perform Perineal Hygiene Comments OT Toileting Comments Pt needing to be cleaned up as not able to use the BSC due to low BP. OT ADL-Bathing Comments OT Bathing Comments Sponge bath more appropriate due to low BP. M5 OT- IP IADL's Start: 12/31/21 14:56 Freq: Status: Active Protocol: Document 12/31/21 14:56 [facility] (Rec: 12/31/21 15:13 [facility] [id number]) OT-Instrumental Activities of Daily Living Home Safety Awareness Home Safety Comments Due to decreased activity tolerance, balance, and overall strength, pt would need assist for all needs at this time as pt tires quickly. Medication Management Medication Management Comments Pt states does his own medications and bills. Meal Preparation Meal Preparation Caregiver Provides Assist Web Press Operator Web Press Operator Caregiver Provides Assist M6 OT- IP Functional Cognition Start: 12/31/21 14:56 Freq: Status: Active Protocol: Document 01/01/22 09:56 [facility] (Rec: 01/01/22 10:06 [facility] [id number]) Cognitive Factors Limiting Selfcare Function Cognitive Comments Cognitive Assessment Comments Pt able to joke around more and appears in better spirits earlier in the session. M7 OT- IP Mobility and Balance Start: 12/31/21 14:56 Freq: Status: Active Protocol: Document 01/01/22 09:56 [facility] (Rec: 01/01/22 10:06 [facility] [id number]) OT- Bed Mobility Assessment Supine to Sit Supine to Sit Assist Standby Assistance,Head of Bed Elevated OT-Transfer Assessment Sit to and From Stand Sit to and from Stand Contact Guard Assistance, Moderate Assistance,2 Person Assistance Transfers Transfer Ability Contact Guard Assistance, Minimal Assistance,Moderate Assistance,2 Person Assistance Technique Transfer Destination Bed,Chair,Shower Stall Transfer Technique Stand Step Pivot Devices Transfer Assistive Devices Gait Belt,Front Wheeled Walker Comments Mobility Comments Pt able to get out of bed easier with HOB up today CGA to stand and not able to straighten his back and legs all the way while standing to FWW. Initially cga-MARYANN with FWW and as BP dropped needing MODA X2 to walk back to the bed. BP with HOB up 83/50, 89/50, sitting on the edge of th edge of the bed 95/62, standing 97 /61, after getting to the shower 79/51 and states feeling very weak and again while sitting on the BSC in the shower 71/44. BP while in bed 95/59. OT- Balance Assessment Sitting Balance and Reactions Static Sitting Balance Ability Good Standing Balance and Reactions Static Standing Balance Ability Poor M8 OT- IP Objective Assessments Start: 12/31/21 14:56 Freq: Status: Active Protocol: Document 12/31/21 14:56 [facility] (Rec: 12/31/21 15:13 [facility] [id number]) OT Gross Range of Motion Upper Extremity Range of Motion ROM Impairments grossly WFL OT Strength Comments Strength Comments WFL for ecommerce marketing specialist OT- Coordination Assessment Comments Coordination Comments Pt needing assist to help open package for toothbrush and brush. OT-Muscle Tone Assessment Muscle Tone WNL Yes M9 OT- IP Assessment and Plan Start: 12/31/21 14:56 Freq: Status: Active Protocol: Document 01/01/22 09:56 [facility] (Rec: 01/01/22 10:06 [facility] [id number]) OT Summary Assessment and Plan Potential Rehabilitation Potential Good Analytic Complexity at Evaluation Moderate Summary OT Impairments Balance,Functional Mobility, Grooming,Dressing,Toileting, Bathing,Toilet Transfers, Shower Transfers,Activity Tolerance Progress Towards Goals Slow Progress due to Medical Issues,Slow Progress due to Activity Tolerance Assessment Summary Pt wanting to try to shower today but BP dropped to 71/44 after walking to the bathroom with CGA. Pt not feeling well and feeling weak and was decided to get pt back to the bed. MARKET SPECIALIST came to assist and pt was needing MODA X2 with FWW to get back to the bed. Nursing came in to take over to assist to clean pt up. Goals Grooming Goal Independent Dressing Goal Independent Toileting Goal Independent Bathing Goal Independent Toilet Transfer Goal Independent Shower Transfer Goal Independent Patient/Caregiver Education Goal Demonstrate Energy Conservation and Pacing Days to Meet Goals 20 Frequency of Treatment Frequency Of Treatment Once a Day Treatment Plan OT Treatment Plan ADL Training,Functional Mobility,Patient/Family Education,Discharge Planning Discharge Recommendations OT Discharge Recommendations SNF Rehab Transportation Needs at Discharge Private Vehicle
[2022-01-01] MEDS: SODIUM CHLORIDE 0.9% FLUSH 10 ML IV ×2 (10:36→20:27)
[2022-01-01] MEDS: ATORVASTATIN 20 MG TABLET 40 MG PO (10:36)
[2022-01-01] MEDS: cefTRIAXone 1,000 MG in SODIUM CHLORIDE 0.9% 100 ML 200 MG IV (10:36)
[2022-01-01 11:30] LABS: Alanine Aminotransferase 16 IU/L (<50); Albumin 2.5 g/dL (3.5-5.0); Albumin Globulin Ratio 0.6 (1.0-2.8); Alkaline Phosphatase 162 U/L (38-126); Aspartate Aminotransferase 27 IU/L (17-59); BUN Creatinine Ratio 18.9 (6-22); Bilirubin Total 1.6 mg/dL (0.2-1.3); Blood Urea Nitrogen 25 mg/dL (9-20); Calcium 8.1 mg/dL (8.4-10.2); Carbon Dioxide 27 mmol/L (22-32); Chloride 103 mmol/L (98-107); Estimated Glomerular Filt Rate 55 mL/min (>60); Globulin 4.2 g/dL (1.7-4.1); Glucose 128 mg/dL (80-110); HEMOLYSIS < 15 (0-50); Hematocrit 32.6 % (41-53); Hemoglobin 10.6 g/dL (13.5-17.5); Mean Corpuscular HGB Conc 32.5 % (30-36); Mean Corpuscular Hemoglobin 26.8 PG (26-34); Mean Corpuscular Volume 82.4 fL (80-100); Platelet Count 41 X10^3/uL (150-400); Potassium 3.9 mmol/L (3.4-5.1); Red Blood Cell Count 3.95 X10^6/uL (4.5-5.9); Sodium 132 mmol/L (137-145); Total Protein 6.7 g/dL (6.3-8.2); White Blood Cell Count 13.8 X10^3/uL (4.5-11.0)
[2022-01-01 11:32] LABS: Add Manual Diff / Slide Review YES
--- NOTE | 2022-01-01 11:33 | PC.NURSE ---
Addendum entered by Kisha France R.N. 01/01/22 14:12: Patient is resting and denies pain. He tolerated his iv antibiotic well. Eating some at meals. Addendum entered by Kisha France R.N. 01/01/22 11:51: Blood pressure now 90s/50s and patient is asymptomatic. Original Note: Patient up to the bathroom with occupational therapy, his systolic blood pressure was in the 80s and aware. It then went down into the 70s and called. He changed patients metoprolol to 6.25mg bid, and ordered lasix which we will give later if his blood pressure has improved. He had a small bowel movement and was unable to get in the shower from his blood pressure. Patient is lying supine now and iv antibiotic has finished. He denies any pain and is comfortable.
[2022-01-01 11:53] LABS: Neutrophils Absolute Manual 7452 /uL (3000-5900); Total Cells Counted 100
[2022-01-01 11:54] LABS: Schistocytes 2+
[2022-01-01 11:55] LABS: Anisocytosis 2+
[2022-01-01 11:57] LABS: RBC Morphology See
--- NOTE | 2022-01-01 13:53 | CM.DPC ---
Addendum entered by Jennifer James R.N. 01/01/22 15:06: DCP spoke with Monserrat at [facility] and she confirmed that she can accept this pt. MV to start ins. auth. Monserrat states earliest she could accept pending ins. auth would be tuesday. P: Once medically stable, pt to discharge to [facility] SNF. Jennifer James RN/YASMIN Addendum entered by Jennifer James R.N. 01/01/22 14:32: DCP sent referral to [facility] this afternoon for potential placement. Pt states he was there in October and did not know if he had exhausted insurance coverage there or not. DCP called Monserrat at and she will look into pt case. Jennifer James RN/DONNAP Original Note: DCP Cont: DCP spoke with Dr. Pineda this morning regarding patient status. Per PT and OT, pt evaluations were recommending home with HH vs SNF placement. DCP went to speak with pt in bedroom and OT and PT were in there and BP's were 70s/40's. Pt sitting in the chair and weak. DCP spoke with pt about SNF and pt nodded his head that he was in agreement with the plan. DCP sent referral to [facility] this morning for SNF placement. DCP awaiting response. P: Once medically stable, plan is to discharge to SNF. Jennifer James RN/DONNAP
[2022-01-01] MEDS: METOPROLOL ER 25 MG TABLET 6.25 MG PO (20:27)
[2022-01-02] VITALS (14 sets, daily range): BP systolic 103–129; BP diastolic 57–66; PULSE 71–87; RESP 16–18; TEMP 36.5–37.3; O2SAT 90–97
[2022-01-02] MEDS: PANTOPRAZOLE DR 40 MG TABLET PO ×2 (06:14→20:28)
--- NOTE | 2022-01-02 07:28 | PM.DS.1 ---
History of Present Illness History of Present Illness Date Patient Seen: 01/02/22 Time Patient Seen: 07:28 Chief complaint: SOB Narrative: Patient is a 81-year-old male patient of Dr. Pineda with history of congestive heart failure atrial fibrillation and history of prior GI bleeds with mild aortic stenosis and moderate tricuspid stenosis with left atrial enlargement who presents with shortness of breath.? Basically is been in his usual state health after a significant admission in September for multiple issues and discharge to [facility].? He has been home now for a while and over the last 6 days has been come increasingly short of breath related with dyspnea with exertion only.? It is very mild.? He has no chest pain or shortness of breath.? He is fine when he sitting or lying but otherwise feels somewhat short of breath.? His no diaphoresis no nausea no vomiting is had no change in his bowel movements no blood in his stool that he knows of.? He has had no urination or swelling problems.? Otherwise he when he was admitted in September he was found to have an infection in his lungs and possibly fibrosis but it has not been followed up as far as we now.? They thought maybe this was related to his atrial fibrillation treatment.? He has had no other significant changes.? Denies drugs alcohol or other problems Discharge Providers Provider Date of admission: 12/28/21 19:01 Discharge Date: 01/02/22 Primary care physician: Willy Pineda MD Consults: 12/30/21 14:45 Consult to Home Health Routine Comment: Reason For Exam: Evaluate and Treat- RN, PT,OT,Bath Aide 12/30/21 16:02 Consult to Occupational Therapy Evaluate & Treat Comment: Physician Instructions: Evaluate and treat Consult to Physical Therapy Evaluate & Treat Comment: Physician Instructions: Evaluate and Treat Discharge provider: Yamilka Mcneil MD Summary Hospital Course Discharge Diagnosis: 1. 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 Hemoglobin upon discharge was 8.8. EGD showed gastric ulcers. Was unable to complete colonoscopy secondary to extreme hypokalemia from prep. Was discharged on Protonix and repeat colonoscopy was scheduled but never completed. At time of GI bleed, patient was on dual anti-platelet therapy including Plavix and Xarelto secondary to angioplasty to LAD in August of 2020. Patient also had iron deficiency anemia at that time and was started on ferrous sulfate. Due to macroscopic hematuria, cardiology discontinued plavix after 10 months of therapy on 06/25/21. During this inpatient hospitalization, patient has had a symptomatic, normocytic/normochromic anemia, iron studies, Vitamin B12 and folate consistent with anemia of chronic disease but peripheral smear is abnormal and points to something more such as cancer due to presence of myelocytes, metamyelocytes, atypical lymphocytes on peripheral smear. Eosinophils were also elevated at 39%, absolute count 4100. Patient does have eosinophilic esophagitis. Has had profound weakness and shortness of breath, no energy to even walk. Back itchy but no rash. Hemoglobin/hematocrit upon admission was 8.3/25.3. On the following day, H/H was 7.5/22.7, treated with PRBC x2 units. Status post transfusion, H/H was 10.5/31.8. Today it is 10.6/32.6. Guaiac notably negative during stay. Colonoscopy was not pursued secondary to age and hypokalemia upon admission. Hypokalemia likely due to torsemide. Patient was taken off of anticoagulation upon admission and started on Protonix. Tagged red blood cell scan ordered but not completed. 2. Thrombocyteopenia New problem. Platelets on 05/28/2020 were 267; on 09/26/2019, 191. Platelets on admission were 53, then fell to 32, due to concern for active bleeding and sympomatic anemia, he was repleted with 2 units with follow-up values of 65, 53, 41, and 32 again this morning. He is currently being transfused 2 units of platelets. He has no petechiae or purpura. He is afebrile. He does have anemia as stated above and leukocytosis that is climbing despite antibiotic therapy. Peripheral smear prior to PRBC transfusion revealed 1+ poikilocytosis, 2+ anisocytosis, and 2+ schistocytosis. Pathology review is pending, stat consult has been requested. Concern for DIC as platelets have continued to fall despite replacement; INR/PT (1.2/13.8), fibrinogen (435), and d-dimer (605) are elevated. 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 Also on the differential but unlikely due to normal kidney function is hemolytic uremic syndrome. TTP could also cause thrombocytopenia but the patient does not have any petechiae or purpura. 3. Eosinophila Occurred during last admission 3 months ago, now present again, absolute count 4100. Concern for malignancy. 4. Hypokalemia, likely secondary to home torsemide without potassium supplementation Low potassium of 2.5 was repleted and normalized to 4.1. Potassium 20 meq PO daily prescribed at discharge. 5. Abnormal CT scan consistent with chronic interstitial lung disease and superimposed aspiration pneumonia Chest x-ray on admission showed bibasilar infiltrates, consolidation, and small bilateral pleural effusions concerning for pneumonia. Follow-up CT scan showed an UIP pattern consistent with chronic, interstitial lung disease as well as a basilar predominance consolidation, increased from prior study suggestive of a possible aspiration pneumonia given the presence of esophageal fluid distension and a patulous appearing esophagus. Patient was not treated with antibiotics initially since he was afebrile. However, he did have a white count throughout his stay as noted above and on hospital day 4, Rocephin was started. He had his 3rd dose today. 6. Leukocytosis with eosinophila, differential diagnosis includes infection such as aspiration pneumonia vs. leukemia Eosinophilia occured during last admission 3 months ago, now present again, absolute count 4100. Concern for malignancy. 7. Persistent atrial fibrillation, rate controlled, chronic Echo was not updated during this hospital stay. He did have a recent echo on 10/11/2021 that showed improvement of his ejection fraction to 55-60%. Right atrium noted again to be severely dilated. Although BNP was not run during this hospital stay, he was given Lasix when antibiotics were initiated on hospital day 4. He normally takes torsemide at home. Home metoprolol dose was decreased during stay to 6.25 mg p.o. b.i.d. due to hypotension (101-113/51-59). Xarelto was discontinued secondary to concern over bleeding, please see #1. 8. Heart Failure with preserved ejection fraction. Please see #7. 9. Acute kidney injury, new Admission creatinine 1.0, creatinine 1 day prior to discharge 1.32, today, 1.33. Increase started after initiation of Lasix. 10. Hyperlipidemia, chronic Treated with home atorvastatin throughout. 11. Weakness, profound, secondary to chronic and acute conditions PT/OT were consulted, recommended continued therapy in SNF when medically stable. Hospital Course: As above. Consulted with Dr. Ngo, hematology/oncology at [facility], he agreed with need for bone marrow biopsy and higher level of care. Dr. Wilkins, [facility] Hospitalist, also, consulted, . Patient will be transported via BLS ambulance. Time Inpt Critical Care Tx > 24 months 30-74 min = 47288 each additional 30 min = 19915 Greater than 175 minutes on day of service, from 18:30 to 21:30, was spent akia-[id number] with greater than 50% of the time directed towards stabilizing patient during critical care transport. This included reevaluating the status of the patient, giving orders and direction to the team attending the patient for additional lab studies to evaluate for DIC and possible malignancy and talking with the transport team including the party plan sales consultant/oncologist and hospitalist. I was unable to leave and left my time unencumbered to care for the patient. Status at Discharge Cognitive/behavioral status at discharge: at baseline, oriented Functional status at discharge: uses cane/walker Overall status at discharge: patient is progressing back to baseline Exam Vital Signs (past 8 hours): - 01/02/22 04:00 Temperature 99.1 F Pulse Rate 77 Respiratory Rate 16 Blood Pressure 105/59 L Pulse Oximetry 97 Oxygen Flow Rate 0 Oxygen Delivery Method Room Air Oxygen Flow Rate 0 Narrative Exam Narrative: GENERAL: Alert and oriented, appearing stated age, frail HEENT: Head normocephalic/atraumatic. Extraocular movements intact. LUNGS: Diminished inspiratory effort, bibasilar crackles. No wheezing. CV: Normal S1 and S2 with regular rate and rhythm, no audible murmurs, rubs or gallops. ABDOMEN: Soft, non-tender, non-distended, no organomegaly. Positive bowel sounds. EXTREMITIES: No clubbing, cyanosis, or edema. NEURO: Cranial nerves II through XII grossly intact, no focal deficits. PSYCH: Alert and oriented x 3. SKIN: No concerning lesions. Objective Labs Result Diagrams: 01/02/22 08:44 01/02/22 08:44 Labs: Laboratory Results - last 24 hr 01/01/22 01/01/22 09:50 09:50 WBC 13.8 H RBC 3.95 L Hgb 10.6 L Hct 32.6 L MCV 82.4 MCH 26.8 MCHC 32.5 RDW 21.0 H Plt Count 41 L Neut % (Auto) Not Reportable Lymph % (Auto) Not Reportable Dickinson % (Auto) Not Reportable Eos % (Auto) Not Reportable Baso % (Auto) Not Reportable Lymph # (Auto) Not Reportable Dickinson # (Auto) Not Reportable Baso # (Auto) Not Reportable Total Counted 100 Seg Neutrophils % 53.0 Band Neutrophils % 1.0 L Lymphocytes % (Manual) 17.0 L Monocytes % (Manual) 3.0 Eosinophils % (Manual) 26.0 H Neutrophils # (Manual) 7452 H RBC Morphology See Anisocytosis 2+ H Schistocytes 2+ H Sodium 132 L Potassium 3.9 Chloride 103 Carbon Dioxide 27 BUN 25 H Creatinine 1.32 H Estimated GFR 55 L BUN/Creatinine Ratio 18.9 Glucose 128 H Calcium 8.1 L Total Bilirubin 1.6 H AST 27 ALT 16 Alkaline Phosphatase 162 H Total Protein 6.7 Albumin 2.5 L Globulin 4.2 H Albumin/Globulin Ratio 0.6 L PFSH Medical History Atrial fibrillation Atrial flutter Barretts esophagus CHF (congestive heart failure) Chronic cough Degenerative arthritis GERD (gastroesophageal reflux disease) GI bleed History of cardioversion Iron deficiency anemia Spinal stenosis of lumbar region with neurogenic claudication Surgical History History of coronary angioplasty with insertion of stent Hx of cholecystectomy Hx of tonsillectomy Social History household members: spouse Smoking Status: Never smoker alcohol intake: never Discharge Plan Discharge Plan Patient Disposition: [facility] Other facility: [facility] Under care of provider: Dr. Lima Wilkins Provider Discharge Comment: Consulting Heme/Onc, Dr. Ngo Discharge Health Status Precautions: [place] Diet/Activity/Treatments Diet: Diet as Tolerated Activity: 4 WW with 1 person assist Discharge Data Primary Care Provider: Willy Pineda VTE Deep Vein Thrombosis/Pulmonary Embolism Present on Admission: No
--- NOTE | 2022-01-02 07:39 | PC.NURSE ---
Addendum entered by Kisha France R.N. 01/02/22 18:56: Patient has tolerated both of his platelet units. Second one just about done infusing. Patient is resting and eating a snack. Addendum entered by Kisha France R.N. 01/02/22 10:24: Patients platelet levels 32,000. Notified and she has ordered 2u of Platelets. These will be infused later as they come from the [facility]. Patient is stable but tired. Sat up in chair for breakfast, ate well. Original Note: Assess- Patient is alert and oriented x3, he is weak. We are planning on getting him up for breakfast after he gets cleaned up. Patient is incontinent of bowel and bladder. He denies pain. BS cta, and patient is on RA. Heart rate regular and no edema noted to lower bilateral extremities.
[2022-01-02] MEDS: ATORVASTATIN 20 MG TABLET 40 MG PO (07:58)
[2022-01-02] MEDS: cefTRIAXone 1,000 MG in SODIUM CHLORIDE 0.9% 100 ML 200 MG IV (07:58)
[2022-01-02] MEDS: METOPROLOL ER 25 MG TABLET 6.25 MG PO ×2 (08:00→20:24)
[2022-01-02 08:56] LABS: Hematocrit 31.7 % (41-53); Hemoglobin 10.4 g/dL (13.5-17.5); Mean Corpuscular Hemoglobin 27.1 PG (26-34); Mean Corpuscular Volume 82.2 fL (80-100); Red Blood Cell Count 3.85 X10^6/uL (4.5-5.9); Red Cell Distribution Width 20.8 % (11.6-14.8); White Blood Cell Count 15.7 X10^3/uL (4.5-11.0)
[2022-01-02 08:58] LABS: Add Manual Diff / Slide Review YES; Platelet Count 32 X10^3/uL (150-400)
[2022-01-02 09:02] LABS: BUN Creatinine Ratio 21.1 (6-22); Blood Urea Nitrogen 28 mg/dL (9-20); Carbon Dioxide 26 mmol/L (22-32); Chloride 104 mmol/L (98-107); Estimated Glomerular Filt Rate 54 mL/min (>60); Glucose 105 mg/dL (80-110); HEMOLYSIS < 15 (0-50); Potassium 4.1 mmol/L (3.4-5.1); Sodium 134 mmol/L (137-145)
[2022-01-02 09:14] LABS: Anisocytosis 2+; Neutrophils Absolute Manual 6908 /uL (3000-5900); Poikilocytosis 1+; Total Cells Counted 100
--- NOTE | 2022-01-02 09:42 | OT.IP.TRT ---
Current Diagnoses Hypokalemia (12/28/21) Occupational Therapy Treatment Note M2 OT-IP Current Condition Start: 12/31/21 14:56 Freq: Status: Active Protocol: Document 12/31/21 14:56 [facility] (Rec: 12/31/21 15:13 [facility] [id number]) Occupational Therapy Current Condition Current Condition Evaluation Date 12/31/21 Treatment Diagnosis Hypokalemia, Anemia, decreased mobility M3 OT- IP Subjective and Pain Start: 12/31/21 14:56 Freq: Status: Active Protocol: Document 01/02/22 10:42 [facility] (Rec: 01/02/22 10:54 [facility] [id number]) OT- Subjective Occupational Therapy Visit Type Type Treatment Note Visit Start Time 09:26 Visit Stop Time 09:42 Total Visit Minutes 16 Occupational Therapy Visit Comments Patient Comments Pt in the recliner and too tired to attempt to shower at this time. Noted site where pt got blood draw, gauge under bandage saturated and notified nursing. Patient/Caregiver Goals To get stronger. OT Pain Assessment Pain When Pain Assessed At Rest Pain Present Pain Present Denied Pain M6 OT- IP Functional Cognition Start: 12/31/21 14:56 Freq: Status: Active Protocol: Document 01/02/22 10:42 [facility] (Rec: 01/02/22 10:54 [facility] [id number]) Cognitive Factors Limiting Selfcare Function Cognitive Comments Cognitive Assessment Comments Pt more tired today , however pleasant and cooperative. M7 OT- IP Mobility and Balance Start: 12/31/21 14:56 Freq: Status: Active Protocol: Document 01/02/22 10:42 [facility] (Rec: 01/02/22 10:54 [facility] [id number]) OT- Bed Mobility Assessment Sit to Supine Sit to Supine Assist Standby Assistance OT-Transfer Assessment Sit to and From Stand Sit to and from Stand Contact Guard Assistance Transfers Transfer Ability Minimal Assistance Technique Transfer Destination Bed,Chair Transfer Technique Stand Step Pivot Devices Transfer Assistive Devices Gait Belt,Front Wheeled Walker Comments Mobility Comments CGA to stand and reminders to use th armrest fo the recliner to help stand up and then MARYANN with FWW to the bed. BP 105/56. OT- Balance Assessment Sitting Balance and Reactions Static Sitting Balance Ability Good Standing Balance and Reactions Static Standing Balance Ability Fair M9 OT- IP Assessment and Plan Start: 12/31/21 14:56 Freq: Status: Active Protocol: Document 01/02/22 10:42 [facility] (Rec: 01/02/22 10:54 [facility] [id number]) OT Summary Assessment and Plan Potential Rehabilitation Potential Good Analytic Complexity at Evaluation Moderate Summary OT Impairments Balance,Functional Mobility, Grooming,Dressing,Toileting, Bathing,Toilet Transfers, Shower Transfers,Activity Tolerance Progress Towards Goals Slow Progress due to Medical Issues,Slow Progress due to Activity Tolerance Assessment Summary Pt looking to go to skilled rehab when medically ready. Pt more tired today. Goals Grooming Goal Independent Dressing Goal Independent Toileting Goal Independent Bathing Goal Independent Toilet Transfer Goal Independent Shower Transfer Goal Independent Patient/Caregiver Education Goal Demonstrate Energy Conservation and Pacing Days to Meet Goals 20 Frequency of Treatment Frequency Of Treatment Once a Day Treatment Plan OT Treatment Plan ADL Training,Functional Mobility,Patient/Family Education,Discharge Planning Discharge Recommendations OT Discharge Recommendations SNF Rehab Transportation Needs at Discharge Private Vehicle
[2022-01-02 09:43] LABS: Ferritin 382 ng/mL (18-464)
--- NOTE | 2022-01-02 10:18 | CM.DPC ---
Addendum entered by Meenakshi Patterson R.N. 01/02/22 13:27: Spoke to Dr. Mcneil about patient. She indicated and confirmed, patient is not medically ready, and concerned about dropping platelets. She indicated, she feels that patient may need higher level hospital, but will see how he does after getting platelets. She confirmed, patient will not be ready to go this weekend, and again, will depend upon how he does after getting platelets, and wants to ensure that he will be stable if skilled is the plan, versus higher level transfer. 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 Monserrat left a recent message and indicated, she did receive the referral, but the bed that the patient was supposed to have, the patient did not yet DC, and he has to be in semi isolation due to his vaccination status. In the message she indicated that she may not be able to take patient until Tuesday. Called [facility] to see if they have beds, in case patient is ready for DC tomorrow, and they have no staffing for weekend admits. Called Monserrat back at [facility] to ask her if there is any possibility of accepting patient tomorrow, and to clarify the vaccination status of patient. Did speak to Monserrat, she called back and stated that if patient was able to get his booster here at the hospital, they would have had a room for him today. She indicated that on Sundays, they do not have current transportation, they are working on getting a contract with [employer]. Monserrat also indicated, they would want to wait at least 24 hours after patient receives platelets to ensure that he is stable. P: DCP to continue to follow. At this time, plan is [facility], but may not be able to accept until Tuesday. Will complete PASSR. They have received [employer] auth, and patient is to be getting platelets today. Meenakshi Patterson RN/Animal Cytologist
--- NOTE | 2022-01-02 10:53 | PT.IPTN ---
Current Diagnoses Hypokalemia (12/28/21) Physical Therapy Treatment Note M2 PT-IP Current Condition Start: 12/31/21 13:34 Freq: NEEDED Status: Active Protocol: Document 12/31/21 11:25 [facility] (Rec: 12/31/21 13:44 [facility] [id number]) Physical Therapy Current Condition Current Condition Evaluation Date 12/31/21 Treatment Diagnosis anemia; difficulty in walking Onset Date 12/28/21 M3 PT-IP Subjective Start: 12/31/21 13:34 Freq: NEEDED Status: Active Protocol: Document 01/02/22 10:45 [facility] (Rec: 01/02/22 11:06 [facility] [id number]) Subjective Physical Therapy Visit Type Type Treatment Note Visit Start Time 10:45 Visit Stop Time 10:53 Total Visit Minutes 8 Number of COMBAT ENGINEER Visits 2 Physical Therapy Visit Comments Patient Comments Pt agreeable to exercises in bed M4 PT-IP Mobility and Gait Start: 12/31/21 13:34 Freq: NEEDED Status: Active Protocol: Document 01/02/22 10:45 [facility] (Rec: 01/02/22 11:06 [facility] [id number]) PT-Transfer Assessment Comments Mobility Comments Pt in bed and reporting high level of fatigue today but agreeable to exercises in bed. PT able to tolerate 1x10 bilateral ankle pumps, quad sets, glute sets, heel slides, and SLR. Pt agreeable to complete exercises as tolerate throughout the day to promote blood flow and strengthening. Pt left in bed w/ all needs in reach. Gait Assessment Comments Gait Comments Pt too fatigued and platelets low this AM, did not ambulate. M5 PT-IP Objective Assessments Start: 12/31/21 13:34 Freq: NEEDED Status: Active Protocol: Document 12/31/21 11:25 [facility] (Rec: 12/31/21 13:44 [facility] [id number]) Orientation Orientation/Cognition Level of Alertness Alert Orientation Name,Place,Situation Language Function Ability No Deficits Noted Safety Awareness Decreased Safety Awareness Memory Description No Deficits Noted Gross Range of Motion Lower Extremity ROM Assessment Within Functional Limits Strength Lower Extremity Strength Assessment Bilaterally Impaired Hip 4-/5 Knee 3+/5 Muscle Tone Muscle Tone WNL Yes M6 PT-IP Treatment Start: 12/31/21 13:34 Freq: NEEDED Status: Active Protocol: Document 01/02/22 10:45 [facility] (Rec: 01/02/22 11:06 [facility] [id number]) Physical Therapy Treatment Exercises Exercises Ankle Pumps,Gluteal Sets,Quad Sets,Heel Slides,Straight Leg Raises Education Education Provided Safety Other Treatments Other Treatment Performed Discussed need for SNF. Pt agreeable. M7 PT-IP Assessment and Plan Start: 12/31/21 13:34 Freq: NEEDED Status: Active Protocol: Document 01/02/22 10:45 [facility] (Rec: 01/02/22 11:06 [facility] [id number]) PT Summary Assessment and Plan Potential Rehabilitation Potential Fair Status of Condition at Evaluation Evolving Summary Impairments Pain,ROM,Strength,Balance, Coordination,Sensation,Tone, Cognition,Bed Mobility, Transfers,Gait,Activity Tolerance Assessment Summary Pt limited by low tolerance for activity, weakness, and fatigue but able to complete LE exercises while in bed to prevent muscle wasting and promote blood flow. He will require SNF to improve strength and functional mobility independence. Goals Bed Mobility Goal Independent Transfer Goal Standby Assistance,Front Wheeled Walker,Four Wheeled Walker Gait Goal Standby Assistance,Front Wheel Walker Gait Distance 100 Other Goals improve ambulation using 4WW ~ 200 ft SBA up/down 3 steps R rail ascending SBA Days to Meet Goals 10 Frequency of Treatment Frequency Of Treatment Once a Day Treatment Plan Physical Therapy Treatment Plan Bed Mobility Training,Transfer Training,Gait Training, Therapeutic Exercise,Balance Retraining,Discharge Planning, Hot or Cold Pack,Neuromuscular Re-ed,Coordination Retraining Recommendations To Nursing Amount of Assist Needed 1 Person Assist Discharge Recommendations PT Discharge Recommendations SNF Rehab Transportation Needs at Discharge Private Vehicle,Wheelchair/ Cabulance
[2022-01-02 19:10] LABS: INR 1.2 (0.9-1.3); Prothrombin Time 13.8 SECONDS (10.1-12.7)
[2022-01-02 19:13] LABS: PTT Partial Thromboplastin Tim 32 SECONDS (26.4-36.2)
[2022-01-02 19:21] LABS: Fibrinogen 435 mg/dL (211-428)
[2022-01-02 19:30] LABS: D Dimer 605 ng/mL (<230)
[2022-01-02] MEDS: SODIUM CHLORIDE 0.9% FLUSH 10 ML IV (20:29)
--- NOTE | 2022-01-02 22:24 | P.PN_ITS ---
Subjective Subjective Date Patient Seen: 01/02/22 Time Patient Seen: 11:30 Interval history: Patient is feeling weak this morning, no energy to even walk. Slight shortness of breath. Denies pain. Back is itching but no rash. Appetite is poor but he is eating with no nausea or vomiting. Denies any bleeding. Nursing reports uneventful night. Exam Vital Signs (past 8 hours): - 01/02/22 14:25 01/02/22 15:06 01/02/22 15:21 Temperature 98.4 F 98.4 F 98.7 F Pulse Rate 73 73 71 Respiratory Rate 18 18 18 Blood Pressure 103/59 L 103/59 L 108/57 L Pulse Oximetry 94 Oxygen Delivery Method Oxygen Flow Rate 0 01/02/22 17:16 01/02/22 17:50 01/02/22 15:35 Temperature 98.6 F 98.6 F 98.7 F Pulse Rate 72 72 71 Respiratory Rate 18 18 18 Blood Pressure 128/64 128/64 108/57 L Pulse Oximetry 96 Oxygen Delivery Method Oxygen Flow Rate 0 01/02/22 18:05 01/02/22 19:51 01/02/22 18:07 Temperature 97.7 F 99.1 F 99.1 F Pulse Rate 77 75 75 Respiratory Rate 18 18 18 Blood Pressure 113/59 L 129/66 129/66 Pulse Oximetry 93 Oxygen Delivery Method Oxygen Flow Rate 01/02/22 20:24 01/02/22 19:00 Temperature Pulse Rate 75 Respiratory Rate Blood Pressure 126/66 Pulse Oximetry 93 Oxygen Delivery Method Room Air Oxygen Flow Rate Oxygen Delivery Method Room Air Oxygen Flow Rate 0 Narrative Exam Narrative: GENERAL: Alert and oriented, appearing stated age, frail HEENT: Head normocephalic/atraumatic. Extraocular movements intact. LUNGS: Diminished inspiratory effort, bibasilar crackles. No wheezing. CV: Normal S1 and S2 with regular rate and rhythm, no audible murmurs, rubs or gallops. ABDOMEN: Soft, non-tender, non-distended, no organomegaly. Positive bowel sounds. EXTREMITIES: No clubbing, cyanosis, or edema. NEURO: Cranial nerves II through XII grossly intact, no focal deficits. PSYCH: Alert and oriented x 3. SKIN: No concerning lesions. Objective Labs Result Diagrams: 01/02/22 08:44 01/02/22 08:44 Labs: Laboratory Results - last 24 hr 01/02/22 01/02/22 01/02/22 08:44 08:44 08:44 WBC 15.7 H RBC 3.85 L Hgb 10.4 L Hct 31.7 L MCV 82.2 MCH 27.1 MCHC 33.0 RDW 20.8 H Plt Count 32 L* Neut % (Auto) Not Reportable Lymph % (Auto) Not Reportable [place] % (Auto) Not Reportable Eos % (Auto) Not Reportable Baso % (Auto) Not Reportable Lymph # (Auto) Not Reportable [place] # (Auto) Not Reportable Baso # (Auto) Not Reportable Total Counted 100 Seg Neutrophils % 43.0 Band Neutrophils % 1.0 L Lymphocytes % (Manual) 11.0 L Atypical Lymphs % 2.0 H Monocytes % (Manual) 4.0 Eosinophils % (Manual) 39.0 H Neutrophils # (Manual) 6908 H RBC Morphology Not Reportable Poikilocytosis 1+ H Anisocytosis 2+ H PT INR APTT Fibrinogen D-Dimer Sodium 134 L Potassium 4.1 Chloride 104 Carbon Dioxide 26 BUN 28 H Creatinine 1.33 H Estimated GFR 54 L BUN/Creatinine Ratio 21.1 Glucose 105 Calcium 8.0 L Ferritin 382 Blood Type 01/02/22 01/02/22 01/02/22 13:16 18:50 18:50 WBC RBC Hgb Hct MCV MCH MCHC RDW Plt Count Neut % (Auto) Lymph % (Auto) [place] % (Auto) Eos % (Auto) Baso % (Auto) Lymph # (Auto) [place] # (Auto) Baso # (Auto) Total Counted Seg Neutrophils % Band Neutrophils % Lymphocytes % (Manual) Atypical Lymphs % Monocytes % (Manual) Eosinophils % (Manual) Neutrophils # (Manual) RBC Morphology Poikilocytosis Anisocytosis PT 13.8 H D INR 1.2 APTT 32 Fibrinogen 435 H D-Dimer 605 H Sodium Potassium Chloride Carbon Dioxide BUN Creatinine Estimated GFR BUN/Creatinine Ratio Glucose Calcium Ferritin Blood Type B Positive ON LICENSE OF [facility] Medical History Atrial fibrillation Atrial flutter Barretts esophagus CHF (congestive heart failure) Chronic cough Degenerative arthritis GERD (gastroesophageal reflux disease) GI bleed History of cardioversion Iron deficiency anemia Spinal stenosis of lumbar region with neurogenic claudication Surgical History History of coronary angioplasty with insertion of stent Hx of cholecystectomy Hx of tonsillectomy Social History household members: spouse Smoking Status: Never smoker alcohol intake: never Assessment & Plan Assessment & Plan narrative: 1. 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 Hemoglobin upon discharge was 8.8. EGD showed gastric ulcers. Was unable to complete colonoscopy secondary to extreme hypokalemia from prep. Was discharged on Protonix and repeat colonoscopy was scheduled but never completed. At time of GI bleed, patient was on dual anti- platelet therapy including Plavix and Xarelto secondary to angioplasty to LAD in August of 2020. Patient also had iron deficiency anemia at that time and was started on ferrous sulfate. Due to macroscopic hematuria, cardiology discontinued plavix after 10 months of therapy on 06/25/21. During this inpatient hospitalization, patient has had a symptomatic, n ormocytic/normochromic anemia, iron studies, Vitamin B12 and folate consistent with anemia of chronic disease but peripheral smear is abnormal and points to something more such as cancer due to presence of myelocytes, metamyelocytes, atypical lymphocytes on peripheral smear. Eosinophils were also elevated at 39%, absolute count 4100. Patient does have eosinophilic esophagitis. Has had profound weakness and shortness of breath, no energy to even walk. Back itchy but no rash. Hemoglobin/hematocrit upon admission was 8.3/25.3. On the following day, H/H was 7.5/22.7, treated with PRBC x2 units. Status post transfusion, H/H was 10.5/31.8. Today it is 10.6/32.6. Guaiac notably negative during stay. Colonoscopy was not pursued secondary to age and hypokalemia upon admission. Hypokalemia likely due to torsemide. Patient was taken off of anticoagulation upon admission and started on Protonix. Plan: Attempting to transfer patient for higher level of care and bone marrow biopsy. Tagged red blood cell scan, time permitting. Trending labs. 2. Thrombocyteopenia, acute New problem. Platelets on 05/28/2020 were 267; on 09/26/2019, 191. Platelets on admission were 53, then fell to 32, due to concern for active bleeding and sympomatic anemia, he was repleted with 2 units with follow-up values of 65, 53, 41, and 32 again this morning. He is currently being transfused 2 units of platelets. He has no petechiae or purpura. He is afebrile. He does have anemia as stated above and leukocytosis that is climbing despite antibiotic therapy. Peripheral smear prior to PRBC transfusion revealed 1+ poikilocytosis, 2+ anisocytosis, and 2+ schistocytosis. Pathology review is pending, stat consult has been requested. Concern for DIC as platelets have continued to fall despite replacement; INR/PT (1.2/13.8), fibrinogen (435), and d-dimer (605) are elevated. 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 Also on the differential but unlikely due to normal kidney function is hemolytic uremic syndrome. TTP could also cause thrombocytopenia but the patient does not have any petechiae or purpura. Plan: Continue platelet transfusion, will trend labs. Attempting to transfer for higher level of care and bone marrow biopsy. 3. Eosinophila Occurred during last admission 3 months ago, now present again, absolute count 4100. Concern for malignancy. Plan: As above. 4. Hypokalemia, likely secondary to home torsemide without potassium supplementation Low potassium of 2.5 was repleted and normalized to 4.1. Plan: Trending labs. 5. Abnormal CT scan consistent with chronic interstitial lung disease and superimposed aspiration pneumonia Chest x-ray on admission showed bibasilar infiltrates, consolidation, and small bilateral pleural effusions concerning for pneumonia. Follow-up CT scan showed an UIP pattern consistent with chronic, interstitial lung disease as well as a basilar predominance consolidation, increased from prior study suggestive of a possible aspiration pneumonia given the presence of esophageal fluid distension and a patulous appearing esophagus. Patient was not treated with antibiotics initially since he was afebrile. However, he did have a white count throughout his stay as noted above and on hospital day 4, Rocephin was started. He had his 3rd dose today. Plan: Continue rocephin. 6. Leukocytosis with eosinophila, differential diagnosis includes infection such as aspiration pneumonia vs. leukemia Eosinophilia occured during last admission 3 months ago, now present again, absolute count 4100. Concern for malignancy. Plan: Trending labs, please see above. 7. Persistent atrial fibrillation, rate controlled, chronic Echo was not updated during this hospital stay. He did have a recent echo on 10/11/2021 that showed improvement of his ejection fraction to 55-60%. Right atrium noted again to be severely dilated. Although BNP was not run during this hospital stay, he was given Lasix when antibiotics were initiated on hospital day 4. He normally takes torsemide at home. Home metoprolol dose was decreased during stay to 6.25 mg p.o. b.i.d. due to hypotension (101-113/51-59). Xarelto was discontinued secondary to concern over bleeding. Plan: Continue metoprolol, watching blood pressure and heart rate closely. 8. Heart Failure with preserved ejection fraction. Plan: Please see #7. 9. Acute kidney injury, new Admission creatinine 1.0, creatinine 1 day prior to discharge 1.32, today, 1.33. Increase started after initiation of Lasix. Plan: Will trend labs. 10. Hyperlipidemia, chronic Plan: Continue home atorvastatin. 11. Weakness, profound, secondary to chronic and acute conditions Plan: Continue PT/OT. Dispo: Attempting to transfer to regional facilty. Code status: DNR.? GI prophylaxis.? PPI.? DVT prophylaxis.? SCDs.? Covid: negative Time Spent With Patient Critical Care time: Greater than 180 minutes total time from 18:30 to 21:44 was spent on day of service, evaluating the patient on the floor, including examining the patient, discussing clinical course with clinical and nursing staff, reviewing clinical course in the computer, preparing documentation and writing orders for continued management of care, discussing status with family as appropriate, reviewing plans for the next 24 hours with both patient/family and nursing staff as appropriate and trying to transfer patient. Quality VTE Deep Vein Thrombosis/Pulmonary Embolism Present on Admission: No
[2022-01-03] VITALS (9 sets, daily range): BP systolic 115–138; BP diastolic 60–73; PULSE 69–76; RESP 14–16; TEMP 36.2–37.7; O2SAT 92–93
[2022-01-03 05:41] LABS: Hematocrit 26.8 % (41-53); Mean Corpuscular HGB Conc 33.7 % (30-36); Mean Corpuscular Hemoglobin 27.9 PG (26-34); Mean Corpuscular Volume 82.8 fL (80-100); Platelet Count 88 X10^3/uL (150-400); Red Blood Cell Count 3.23 X10^6/uL (4.5-5.9); Red Cell Distribution Width 21.2 % (11.6-14.8); White Blood Cell Count 13.1 X10^3/uL (4.5-11.0)
[2022-01-03 05:43] LABS: Add Manual Diff / Slide Review YES; Fibrinogen 423 mg/dL (211-428); INR 1.2 (0.9-1.3); Prothrombin Time 13.4 SECONDS (10.1-12.7)
[2022-01-03 05:46] LABS: D Dimer 723 ng/mL (<230); Lactate Dehydrogenase 781 U/L (313-618); PTT Partial Thromboplastin Tim 30 SECONDS (26.4-36.2)
[2022-01-03 05:48] LABS: Alanine Aminotransferase 18 IU/L (<50); Albumin 2.4 g/dL (3.5-5.0); Albumin Globulin Ratio 0.6 (1.0-2.8); Alkaline Phosphatase 166 U/L (38-126); Aspartate Aminotransferase 28 IU/L (17-59); BUN Creatinine Ratio 22.3 (6-22); Bilirubin Total 0.8 mg/dL (0.2-1.3); Blood Urea Nitrogen 29 mg/dL (9-20); Calcium 7.9 mg/dL (8.4-10.2); Carbon Dioxide 28 mmol/L (22-32); Chloride 106 mmol/L (98-107); Estimated Glomerular Filt Rate 56 mL/min (>60); Glucose 98 mg/dL (80-110); HEMOLYSIS < 15 (0-50); Potassium 3.9 mmol/L (3.4-5.1); Sodium 134 mmol/L (137-145); Total Protein 6.4 g/dL (6.3-8.2)
[2022-01-03] MEDS: PANTOPRAZOLE DR 40 MG TABLET PO ×2 (06:27→20:14)
[2022-01-03 06:40] LABS: Neutrophils Absolute Manual 6157 /uL (3000-5900); Total Cells Counted 100
[2022-01-03 06:51] LABS: Anisocytosis 2+
[2022-01-03 06:52] LABS: Schistocytes 2+
[2022-01-03] MEDS: ATORVASTATIN 20 MG TABLET 40 MG PO (08:56)
[2022-01-03] MEDS: METOPROLOL ER 25 MG TABLET 6.25 MG PO ×2 (08:56→20:14)
[2022-01-03] MEDS: SODIUM CHLORIDE 0.9% FLUSH 10 ML IV ×2 (08:57→20:15)
--- NOTE | 2022-01-03 11:26 | P.PN_ITS ---
Subjective Subjective Date Patient Seen: 01/03/22 Time Patient Seen: 11:26 Interval history: Patient is feeling okay this morning, still very weak, no energy to do anything. Denies any pain. Appetite is okay, no n/v. Woudl like to take a shower, but no enegy to stand for that long. Denies any bleeding. Platelets transfused yesterday uneventfully. Exam Vital Signs (past 8 hours): - 01/03/22 04:00 01/03/22 08:41 01/03/22 08:56 Temperature 99 F 97.2 F L Pulse Rate 76 69 69 Respiratory Rate 14 16 Blood Pressure 115/60 122/69 122/69 Pulse Oximetry 93 92 Oxygen Delivery Method Oxygen Flow Rate 0 0 01/03/22 10:52 Temperature Pulse Rate Respiratory Rate Blood Pressure Pulse Oximetry 92 Oxygen Delivery Method Room Air Oxygen Flow Rate 0 Oxygen Delivery Method Room Air Oxygen Flow Rate 0 Narrative Exam Narrative: GENERAL: Alert and oriented, appearing stated age, weak and fraril. HEENT: Head normocephalic/atraumatic. Extraocular movements intact. LUNGS: Clear to ausculation bilaterally, no wheezes, rhonchi or rales. CV: Irregularly irregular with 3/5 systolic murmur. ABDOMEN: Soft, non-tender, non-distended, no organomegaly. Positive bowel sounds. EXTREMITIES: No clubbing, cyanosis, or edema. NEURO: Cranial nerves II through XII grossly intact, no focal deficits. PSYCH: Alert and oriented x 3. SKIN: New purple contusions at IV sites, no petechiae Objective Labs Result Diagrams: 01/03/22 05:25 01/03/22 05:25 Labs: Laboratory Results - last 24 hr 01/02/22 01/02/22 01/02/22 13:16 18:50 18:50 WBC RBC Hgb Hct MCV MCH MCHC RDW Plt Count Neut % (Auto) Lymph % (Auto) Whitman % (Auto) Eos % (Auto) Baso % (Auto) Lymph # (Auto) Whitman # (Auto) Baso # (Auto) Total Counted Seg Neutrophils % Band Neutrophils % Lymphocytes % (Manual) Atypical Lymphs % Monocytes % (Manual) Eosinophils % (Manual) Neutrophils # (Manual) RBC Morphology Anisocytosis Schistocytes PT 13.8 H D INR 1.2 APTT 32 Fibrinogen 435 H D-Dimer 605 H Sodium Potassium Chloride Carbon Dioxide BUN Creatinine Estimated GFR BUN/Creatinine Ratio Glucose Calcium Total Bilirubin AST ALT Alkaline Phosphatase Lactate Dehydrogenase Total Protein Albumin Globulin Albumin/Globulin Ratio Blood Type B Positive 01/03/22 01/03/22 01/03/22 05:25 05:25 05:25 WBC 13.1 H RBC 3.23 L Hgb 9.0 L Hct 26.8 L MCV 82.8 MCH 27.9 MCHC 33.7 RDW 21.2 H Plt Count 88 L Neut % (Auto) Not Reportable Lymph % (Auto) Not Reportable Whitman % (Auto) Not Reportable Eos % (Auto) Not Reportable Baso % (Auto) Not Reportable Lymph # (Auto) Not Reportable Whitman # (Auto) Not Reportable Baso # (Auto) Not Reportable Total Counted 100 Seg Neutrophils % 46.0 Band Neutrophils % 1.0 L Lymphocytes % (Manual) 11.0 L Atypical Lymphs % 1.0 H Monocytes % (Manual) 6.0 Eosinophils % (Manual) 35.0 H Neutrophils # (Manual) 6157 H RBC Morphology See below Anisocytosis 2+ H Schistocytes 2+ H PT 13.4 H INR 1.2 APTT 30 Fibrinogen 423 D-Dimer 723 H Sodium Potassium Chloride Carbon Dioxide BUN Creatinine Estimated GFR BUN/Creatinine Ratio Glucose Calcium Total Bilirubin AST ALT Alkaline Phosphatase Lactate Dehydrogenase 781 H Total Protein Albumin Globulin Albumin/Globulin Ratio Blood Type 01/03/22 05:25 WBC RBC Hgb Hct MCV MCH MCHC RDW Plt Count Neut % (Auto) Lymph % (Auto) Whitman % (Auto) Eos % (Auto) Baso % (Auto) Lymph # (Auto) Whitman # (Auto) Baso # (Auto) Total Counted Seg Neutrophils % Band Neutrophils % Lymphocytes % (Manual) Atypical Lymphs % Monocytes % (Manual) Eosinophils % (Manual) Neutrophils # (Manual) RBC Morphology Anisocytosis Schistocytes PT INR APTT Fibrinogen D-Dimer Sodium 134 L Potassium 3.9 Chloride 106 Carbon Dioxide 28 BUN 29 H Creatinine 1.30 H Estimated GFR 56 L BUN/Creatinine Ratio 22.3 H Glucose 98 Calcium 7.9 L Total Bilirubin 0.8 AST 28 ALT 18 Alkaline Phosphatase 166 H Lactate Dehydrogenase Total Protein 6.4 Albumin 2.4 L Globulin 4.0 Albumin/Globulin Ratio 0.6 L Blood Type [facility] Medical History Atrial fibrillation Atrial flutter Barretts esophagus CHF (congestive heart failure) Chronic cough Degenerative arthritis GERD (gastroesophageal reflux disease) GI bleed History of cardioversion Iron deficiency anemia Spinal stenosis of lumbar region with neurogenic claudication Surgical History History of coronary angioplasty with insertion of stent Hx of cholecystectomy Hx of tonsillectomy Social History household members: spouse Smoking Status: Never smoker alcohol intake: never Assessment & Plan Assessment & Plan narrative: 1.? 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 Hemoglobin upon discharge was 8.8.? EGD showed gastric ulcers.? Was unable to complete colonoscopy secondary to extreme hypokalemia from prep.? Was discharged on Protonix and repeat colonoscopy was scheduled but never completed.? At time of GI bleed, patient was on dual anti- platelet therapy including Plavix and Xarelto secondary to angioplasty to LAD in August of 2020.? Patient also had iron deficiency anemia at that time and was started on ferrous sulfate.? Due to macroscopic hematuria, cardiology disconti nued plavix after 10 months of therapy on 06/25/21. During this inpatient hospitalization, patient has had a symptomatic, normocytic/normochromic anemia, iron studies, Vitamin B12 and folate consistent with anemia of chronic disease but peripheral smear is abnormal and points to something more such as cancer due to presence of myelocytes, metamyelocytes, atypical lymphocytes on peripheral smear.? Eosinophils were also elevated at 39%, absolute count 4100.? Patient does have eosinophilic esophagitis.? Has had profound weakness and shortness of breath, no energy to even walk.? Back itchy but no rash.? Hemoglobin/hematocrit upon admission was 8.3/25.3.? On the following day, H/H was 7.5/22.7, treated with PRBC x2 units.? Status post transfusion, H/H was 10.5/31.8.? Yesterday H/H was 10.6/32.6, today it is 9.0/26.8.? Guaiac notably negative during stay.? Colonoscopy was not pursued secondary to age and hypokalemia upon admission.? Hypokalemia likely due to torsemide.? Patient was taken off of anticoagulation upon admission and started on Protonix.? Plan:? Unable to transfer patient yesterday, hematology/oncology will be back on the floor tomorrow and are able to do a bone marrow biopsy at the bedside. Dr. Aguilar is aware of this patient but will need to be formally consulted in the [facility]. Tagged red blood cell scan pending. Trending labs. 2.? Thrombocyteopenia, acute New problem.? Platelets on 05/28/2020 were 267; on 09/26/2019, 191.? Platelets on admission were 53, then fell to 32, due to concern for active bleeding and sympomatic anemia, he was repleted with 2 units with follow-up values of 65, 53, 41, and 32 again yesterday.? He was transfused another 2 units of platelets, labs this morning showed 88.? He has no petechiae or purpura.? He is afebrile.? He does have anemia as stated above and leukocytosis that is climbing despite antibiotic therapy.? Peripheral smear prior to PRBC transfusion revealed 1+ poikilocytosis, 2+ anisocytosis, and 2+ schistocytosis.? Pathology review is pending, stat consult has been requested.? Concern for DIC as platelets have continued to fall despite replacement; INR/PT (1.2/13.8), fibrinogen (435-->423), and d-dimer (605 --> 723) are elevated.? 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 Also on the differential but unlikely due to normal kidney function is hemolytic uremic syndrome.? TTP could also cause thrombocytopenia but the patient does not have any petechiae or purpura.? Plan:? Hematology/oncology consult and bone marrow biopsy tomorrow. 3.? Eosinophila Occurred during last admission 3 months ago, now present again, absolute count 4100.? Concern for malignancy. Plan:? As above. 4. Hypokalemia, likely secondary to home torsemide without potassium supplementation Low potassium of 2.5 was repleted and normalized to 3.9.? Plan:? Trending labs. 5. Abnormal CT scan consistent with chronic interstitial lung disease and superimposed aspiration pneumonia Chest x-ray on admission showed bibasilar infiltrates, consolidation, and small bilateral pleural effusions concerning for pneumonia.? Follow-up CT scan showed an UIP pattern consistent with chronic, interstitial lung disease as well as a basilar predominance consolidation, increased from prior study suggestive of a possible aspiration pneumonia given the presence of esophageal fluid distension and a patulous appearing esophagus.? Patient was not treated with antibiotics initially since he was afebrile.? However, he did have a white count throughout his stay as noted above and on hospital day 4, Rocephin was started.? He had his 3rd dose today. Plan:? Continue rocephin. 6.? Leukocytosis with eosinophila, differential diagnosis includes infection such as aspiration pneumonia vs. leukemia Eosinophilia occured during last admission 3 months ago, now present again, absolute count 4100.? Concern for malignancy. Plan:? Trending labs, please see above. 7.? Persistent atrial fibrillation, rate controlled, chronic Echo was not updated during this hospital stay.? He did have a recent echo on 10/11/2021 that showed improvement of his ejection fraction to 55-60%.? Right atrium noted again to be severely dilated.? Although BNP was not run during this hospital stay, he was given Lasix when antibiotics were initiated on hospital day 4.? He normally takes torsemide at home.? Home metoprolol dose was decreased during stay to 6.25 mg p.o. b.i.d. due to hypotension (101-113/51-59).? Xarelto was discontinued secondary to concern over bleeding. Plan:? Continue metoprolol, watching blood pressure and heart rate closely. 8.? Heart Failure with preserved ejection fraction. Plan:? Please see #7. 9.? Acute kidney injury, new Admission creatinine 1.0, creatinine yesterday 1.33, today, 1.30.? Increase started after initiation of Lasix. Plan:? Will trend labs. 10. Hyperlipidemia, chronic Plan:? Continue home atorvastatin. 11. Weakness, profound, secondary to chronic and acute conditions Plan:? Continue PT/OT. Dispo: Abandoning transfer to regional facility as no beds were available. Will wait for heme/onc to return tomorrow and proceed with bone marrow biopsy here with ongoing care here if appropriate and depending on results. Code status:? DNR.? GI prophylaxis.? PPI.? DVT prophylaxis.? SCDs.? Covid:? negative Time Spent With Patient Critical Care time: Greater than 35 minutes total time was spent on day of service, evaluating the patient on the floor, including examining the patient, discussing clinical course with clinical and nursing staff, reviewing clinical course in the computer, preparing documentation and writing orders for continued management of care, discussing status with family as appropriate, reviewing plans for the next 24 hours with both patient/family and nursing staff as appropriate. Quality VTE Deep Vein Thrombosis/Pulmonary Embolism Present on Admission: No
[2022-01-03] MEDS: SODIUM CHLORIDE 0.9% 250 ML 21 ML IV (12:27)
[2022-01-03] MEDS: cefTRIAXone 1,000 MG in SODIUM CHLORIDE 0.9% 100 ML 200 MG IV (12:32)
--- NOTE | 2022-01-03 12:33 | CM.DPC ---
DCP Hospital transfer vs Onc assist here Per MD, pt seems slightly stable today with platelets provided but strongly recommends bone biopsy for diagnostic purposes to better determine POC and Goals of Care as pt likely may have underlying leukemia/cancer dx. Pt has been having critical platelet counts. MD and lime supervisor discussed possible option of having Oncologist perform bone biopsy here at [facility] vs transfer to higher level of care hospital but currently lack of bed availability at [facility]. lime supervisor and Dr. Mcneil (information systems security specialist MD) working to determine options. Per MD, pt's biopsy would then help determine POC and treatment options vs Goals of Care discussion and potential for more Palliative/Comfort approach pending dx. [facility] has accepted pt for SNF rehab and obtained [employer] MCR auth and has an opening tomorrow but likely will not be stable for d/c yet tomorrow. Plan: SW to follow closely for determination of bone biopsy here vs hospital transfer for higher level of care. SW to keep [facility] [place] updated and pending timeline of d/c may need updated [employer] auth if pt's plan remains SNF. ALYSSA Valdes
--- NOTE | 2022-01-03 13:51 | PT-IP ANOTE ---
Pt's platelets improved from 32 to 88 today. PT contacted pt late AM for treatment but pt refused all mobility. I don't plan to get up at all today. Educated pt on reasons for PT and risks of immobility. Pt agreed for PT to check again PM. At second attempt, pt continued to refuse, citing fatigue. Pt agreed to continue doing exercises in bed.
[2022-01-04 05:00] VITALS: BP 126/69; PULSE 68; RESP 16; TEMP 37.3; O2SAT 91
[2022-01-04] MEDS: PANTOPRAZOLE DR 40 MG TABLET PO ×2 (06:19→21:08)
[2022-01-04 06:27] LABS: Haptoglobin 41 mg/dL (34-355)
[2022-01-04 07:18] LABS: Hematocrit 29.7 % (41-53); Hemoglobin 9.9 g/dL (13.5-17.5); Mean Corpuscular HGB Conc 33.2 % (30-36); Mean Corpuscular Hemoglobin 27.5 PG (26-34); Mean Corpuscular Volume 82.7 fL (80-100); Platelet Count 72 X10^3/uL (150-400); Red Blood Cell Count 3.59 X10^6/uL (4.5-5.9); Red Cell Distribution Width 20.8 % (11.6-14.8); White Blood Cell Count 14.6 X10^3/uL (4.5-11.0)
[2022-01-04 07:20] LABS: Add Manual Diff / Slide Review YES
[2022-01-04 07:23] LABS: INR 1.3 (0.9-1.3); Prothrombin Time 14.3 SECONDS (10.1-12.7)
[2022-01-04 07:24] LABS: PTT Partial Thromboplastin Tim 31 SECONDS (26.4-36.2)
[2022-01-04 07:25] LABS: Fibrinogen 423 mg/dL (211-428)
[2022-01-04 07:32] LABS: Alanine Aminotransferase 19 IU/L (<50); Albumin 2.2 g/dL (3.5-5.0); Albumin Globulin Ratio 0.5 (1.0-2.8); Alkaline Phosphatase 178 U/L (38-126); Aspartate Aminotransferase 29 IU/L (17-59); BUN Creatinine Ratio 23.9 (6-22); Bilirubin Total 1.3 mg/dL (0.2-1.3); Blood Urea Nitrogen 27 mg/dL (9-20); Calcium 8.3 mg/dL (8.4-10.2); Carbon Dioxide 27 mmol/L (22-32); Chloride 105 mmol/L (98-107); Estimated Glomerular Filt Rate > 60 mL/min (>60); Globulin 4.1 g/dL (1.7-4.1); Glucose 80 mg/dL (80-110); HEMOLYSIS < 15 (0-50); Potassium 3.8 mmol/L (3.4-5.1); Sodium 134 mmol/L (137-145); Total Protein 6.3 g/dL (6.3-8.2)
[2022-01-04 07:34] LABS: D Dimer 1485 ng/mL (<230)
[2022-01-04 07:49] LABS: Anisocytosis 1+; Neutrophils Absolute Manual 5402 /uL (3000-5900); Poikilocytosis 1+; Total Cells Counted 100
[2022-01-04 08:00] VITALS: BP 130/68; PULSE 73; RESP 16; TEMP 37.1; O2SAT 91
[2022-01-04] MEDS: SODIUM CHLORIDE 0.9% FLUSH 10 ML IV ×2 (09:24→21:08)
[2022-01-04] MEDS: ATORVASTATIN 20 MG TABLET 40 MG PO (09:24)
[2022-01-04] MEDS: METOPROLOL ER 25 MG TABLET 6.25 MG PO ×2 (09:24→21:08)
--- NOTE | 2022-01-04 10:00 | PC.NURSE ---
Addendum entered by Kisha France R.N. 01/04/22 15:13: Patient had his bone marrow biopsy around 1230. performed the procedure. He tolerated well. He has a pressure dressing to [facility] area, and initally layed supine on a towel for about 15 minutes. He is now up in the chair after working with physical therapy. He denies any discomfort. Addendum entered by Kisha France R.N. 01/04/22 11:22: Patient will have a bone marrow biopsy at lunch time today. Addendum entered by Kisha France R.N. 01/04/22 10:58: Patient guiaced negative for blood in his stool. Called [facility] and told them order for red tagged blood cell scan has been cancelled at this time. Original Note: Patient is alert and oriented, he denies pain. Patient will get up for lunch, He has been incontinent of urine and bowel. into see patient and is going to talk to Oncology about doing a bone marrow biopsy. We will also guiac patient and if he is positive for blood then he will have a red blood tagged scan. Getting a bed bath now.
--- NOTE | 2022-01-04 10:25 | P.PN_ITS ---
Subjective Subjective Date Patient Seen: 01/04/22 Time Patient Seen: 08:30 Interval history: CC: weakness appetite good no pain today appetite intact however still feels too weak to get out of bed. given schistocytosis and three cell lines affected we are consulting oncology Dr. Pillo Aguilar has kindly agreed to try for a bone marrow biopsy on the floor today discussed tagged RBC study with radiology in absence of apparent active bleed they recommend holding off (guiac negative today as it has been) Exam Vital Signs (past 8 hours): - 01/04/22 05:00 01/04/22 08:00 01/04/22 09:53 Temperature 99.2 F 98.8 F Pulse Rate 68 73 Respiratory Rate 16 16 Blood Pressure 126/69 130/68 Pulse Oximetry 91 91 Oxygen Delivery Method Room Air Oxygen Flow Rate 0 0 Oxygen Delivery Method Room Air Oxygen Flow Rate 0 Narrative Exam Narrative: laying in bed after eating breakfast Const General: cooperative, comfortable, well developed and frail appearing Resp Effort & Inspection: normal respiratory effort and able to speak in complete sentences Auscultation: clear to auscultation bilaterally Cardio Rate: regular rate (irregular rhythm moderate systolic murmur good perfusion good capillary ref) GI Palpation: soft and No tender Auscultation: normal bowel sounds Skin General: no rashes or lesions noted Neuro General: patient alert, patient awake, patient oriented x3, moves all extremities and CN's II-XI intact bilaterally Extrem General: full ROM and no pedal edema Psych Appearance: grossly normal Mental Status: mental status grossly normal Speech and Movement: speech and movement normal Objective Labs Result Diagrams: 01/04/22 06:00 01/04/22 06:00 Labs: Laboratory Results - last 24 hr 01/03/22 01/04/22 01/04/22 05:25 06:00 06:00 WBC 14.6 H RBC 3.59 L Hgb 9.9 L Hct 29.7 L MCV 82.7 MCH 27.5 MCHC 33.2 RDW 20.8 H Plt Count 72 L Neut % (Auto) Not Reportable Lymph % (Auto) Not Reportable Mcdonough % (Auto) Not Reportable Eos % (Auto) Not Reportable Baso % (Auto) Not Reportable Lymph # (Auto) Not Reportable Mcdonough # (Auto) Not Reportable Baso # (Auto) Not Reportable Total Counted 100 Seg Neutrophils % 35.0 L Band Neutrophils % 2.0 L Lymphocytes % (Manual) 11.0 L Monocytes % (Manual) 7.0 Eosinophils % (Manual) 45.0 H Neutrophils # (Manual) 5402 RBC Morphology Not Reportable Poikilocytosis 1+ H Anisocytosis 1+ H Haptoglobin 41 PT 14.3 H INR 1.3 APTT 31 Fibrinogen 423 D-Dimer 1485 H Sodium Potassium Chloride Carbon Dioxide BUN Creatinine Estimated GFR BUN/Creatinine Ratio Glucose Calcium Total Bilirubin AST ALT Alkaline Phosphatase Total Protein Albumin Globulin Albumin/Globulin Ratio 01/04/22 06:00 WBC RBC Hgb Hct MCV MCH MCHC RDW Plt Count Neut % (Auto) Lymph % (Auto) Mcdonough % (Auto) Eos % (Auto) Baso % (Auto) Lymph # (Auto) Mcdonough # (Auto) Baso # (Auto) Total Counted Seg Neutrophils % Band Neutrophils % Lymphocytes % (Manual) Monocytes % (Manual) Eosinophils % (Manual) Neutrophils # (Manual) RBC Morphology Poikilocytosis Anisocytosis Haptoglobin PT INR APTT Fibrinogen D-Dimer Sodium 134 L Potassium 3.8 Chloride 105 Carbon Dioxide 27 BUN 27 H Creatinine 1.13 Estimated GFR > 60 BUN/Creatinine Ratio 23.9 H Glucose 80 Calcium 8.3 L Total Bilirubin 1.3 AST 29 ALT 19 Alkaline Phosphatase 178 H Total Protein 6.3 Albumin 2.2 L Globulin 4.1 Albumin/Globulin Ratio 0.5 L PFSH Medical History Atrial fibrillation Atrial flutter Barretts esophagus CHF (congestive heart failure) Chronic cough Degenerative arthritis GERD (gastroesophageal reflux disease) GI bleed History of cardioversion Iron deficiency anemia Spinal stenosis of lumbar region with neurogenic claudication Surgical History History of coronary angioplasty with insertion of stent Hx of cholecystectomy Hx of tonsillectomy Social History household members: spouse Smoking Status: Never smoker alcohol intake: never Assessment & Plan Assessment & Plan narrative: #normocytic anemia, acute, s/p multiple transfusion over last year #thrombocytopenia, acute, s/p multiple transfusion this admission #eosinophilic leukocytosis, persistent s/p iv abx, hx of eosinophilic esophagitis #schistocytosis, 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 Aguilar in his clinic and he will arrange to perform bone marrow biopsy today on the floor to guide further planning. Guiac still negative today as it has been this whole admission; continuing to hold anticoagulation. Still extremely weak. Spoke with over phone today explained situation. His vital signs are generally stable but BP is tenuous, will continue reduced dose of metoprolol #hypokalemia stable s/p repletion holding home loop diuretic continue to monitor #chronic interstitial lung disease and superimposed aspiration pneumonia per imaging. s/p 3 doses of iv rocephin without dramatic improvement in white count or fatigue. satting well on RA today, will need pulm f/u as outpatient. #Persistent atrial fibrillation, rate controlled, chronic Rate controlled on reduced dose of metoprolol 6.25 bid, BP holding ok. Anticoagulation held due to concern for possible active bleed on admission, extended coagulation studies pending, PT elevated, will reevaluate based on findings #Heart Failure with preserved ejection fraction. September 2021 echo showed EF 55-60% with dilated R atrium. Some pulmonary crackles treated clinically with some iv lasix seem to have improved, no pedal edema. I do not think this is cause of his weakness. #Acute kidney injury, new Cr bumped 1.0 to 1.3 with lasix dose, back down to 1.1 with repletion, will hold loop diuretics for now and encourage oral hydration #Hyperlipidemia, chronic continue home statin #Weakness, profound, secondary to chronic and acute conditions continue to work with PT/OT as able Dispo: pending heme-onc workup, very appreciative of Dr. Aguilar's kind attention to this patient today. Code status:? DNR MDM: Tory [phone] GI prophylaxis.? PPI.? DVT prophylaxis.? SCDs.? Covid:? negative Time Spent With Patient Critical Care time: I spent a total of [] minutes of critical care time on this patient's care today; this time is exclusive of procedural time. Quality VTE Deep Vein Thrombosis/Pulmonary Embolism Present on Admission: No
--- NOTE | 2022-01-04 11:59 | PT-IP ANOTE ---
Visited pt at 0930 today. He refused PT, citing fatigue. He agreed to get up for lunch and PT could return at that time. At noon, RN reported pt was to have a bedside bone biopsy soon and should remain in bed. Will plan to follow up later today.
--- NOTE | 2022-01-04 12:00 | OT.IPNOTE ---
Pt preparing for bone biopsy. No Ot services provided at this time. Will continue to follow.
--- NOTE | 2022-01-04 13:27 | ONC.CONS ---
History of Present Illness - Data of Consult Patient: new to practice Consult date: 01/04/22 Requesting Physician: Willy Pineda MD Primary Care Provider: Willy Pineda MD - Consult Narrative Reason for consult: Eosinophilia, thrombocytopenia and anemia of unknown etiology Narrative: Federico Pro is a 81 year old male with medical history most notable for CHF, AFib on Xarelto, iron deficiency anemia, and aortic stenosis who was admitted on 12/28/2021 due to shortness of breath particularly on exertion. 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 . On admission on 12/28/2021, COVID swab was negative. His labs showed WBC 11.1, HGB 8.3, HCT 25.3, MCV 80.2, PLT 69, and eosinophil 17%. On reviewing his labs in the [facility], the patient developed progressive and mild leukocytosis from 09/2021 ranging from 11.2 to current 14.6. Available data showed he had chronic anemia all the time with mild microcytosis. RDW has been getting wider progressively. And he also had progressive eosinophilia ranging from 13% to 45%. But he did not have thrombocytopenia until current admission. His platelet counts dropped to bereket of of 32K. Schistocytes were present 2+ most of the time. The patient was given platelet transfusion with good post-transfusion increase of platelet counts. However, platelet counts dropped again to 32K on 01/02/2022 and required more platelets transfusion. Today, His platelet counts wer 72K. He also received pRBC transfusion after admission. In addition, he had mildly elevated total bilirubinemia, and high LDH (781). His haptoglobin was at lower end of normal (41). He also was found to have acute rise of serum creatinine from 0.96 of on 12/31/2021 to 1.32 on 01/01/2022 . During the next 2-3 days, it stayed at 1.30-1.32, and today it decreased to 1.13. CT scan on admission was suspicious for chronic interstitial lung disease. The patient has been treated with iv ceftriaxone. CC: Federico Hunt MD Patient reports pain?: No Home Medications and Allergies Home Medications Medication Instructions Recorded Confirmed Type atorvastatin 40 mg tablet 40 mg PO DAILY 12/02/20 12/28/21 History apixaban 5 mg tablet (Eliquis) 5 mg PO BID 12/28/21 12/28/21 History metoprolol succinate 25 mg 12.5 mg PO BID 12/28/21 12/28/21 History tablet,extended release 24 hr amoxicillin 875 mg-potassium 1 tab PO BID #4 tabs 01/02/22 Rx clavulanate 125 mg tablet pantoprazole 40 mg tablet,delayed 40 mg PO 0700,2100 #180 tabs 01/02/22 Rx release potassium chloride 20 mEq oral 20 meq PO DAILY #30 ea 01/02/22 Rx packet torsemide 20 mg tablet 20 mg PO DAILY #30 tabs 01/02/22 Rx Allergies Allergy/AdvReac Type Severity Reaction Status Date / Time No Known Drug Allergies Allergy Verified 12/28/21 14:54 Medical History - Medical, Surgical, Family History Medical History: Medical History (Last Reviewed 12/31/21 @ 21:07 by Willy Pineda MD) Atrial fibrillation Atrial flutter Barretts esophagus CHF (congestive heart failure) Chronic cough Degenerative arthritis GERD (gastroesophageal reflux disease) GI bleed History of cardioversion Iron deficiency anemia Spinal stenosis of lumbar region with neurogenic claudication Surgical History: Surgical History (Last Reviewed 12/31/21 @ 21:07 by Willy Pineda MD) History of coronary angioplasty with insertion of stent Hx of cholecystectomy Hx of tonsillectomy - Social History Smoking Status: Never smoker Exam Vital signs: Vital Signs Temp Pulse Resp BP Pulse Ox O2 Del Method O2 Flow Rate 01/04/22 09:53 Room Air 01/04/22 08:00 98.8 F 73 16 130/68 91 0 01/04/22 05:00 99.2 F 68 16 126/69 91 0 01/03/22 19:40 92 Room Air 01/03/22 20:50 70 138/73 01/03/22 19:00 92 Room Air 0 01/03/22 20:14 74 134/66 01/03/22 19:45 99.9 F H 74 16 134/66 92 0 Intake and Output 01/03/22 01/04/22 01/04/22 23:59 07:59 15:59 Intake Total 150 / 350 150 / 390 240 / 390 Output Total 700 / 1150 300 / 600 300 / 600 Balance -550 / -800 -150 / -210 -60 / -210 Intake: Oral 150 / 250 150 / 390 240 / 390 Output: Urine 700 / 1150 300 / 300 Urine Amount (Catheter) 300 / 300 Other: Percent Meal Consumed 100% # Incontinent Voids 1 Weight 72 kg - Constitutional positive mild distress, positive thin, positive chronically ill appearing, positive cooperative - Routine HEENT Exam Head: Present: normocephalic, atraumatic Eye: Present: EOMI, PERRL. Absent: conjunctival icterus - Routine Neck Exam Present: supple. Absent: lymphadenopathy, thyromegaly - Routine Chest/Breast/Axilla Exam Axillae: Absent: lymphadenopathy - Routine Respiratory Exam Present: decreased breath sounds, diminished air movement. Absent: wheezes, crackles - Routine Cardiovascular Exam Present: murmur (systolic), irregularly irregular - Routine Abdominal Exam Present: soft. Absent: organomegaly - Routine Extremities Exam Absent: edema - Routine Skin Exam Present: ecchymosis. Absent: petechiae, jaundice, normal turgor - Routine Neurological Exam Present: alert, oriented X3, CN II-XII intact, normal speech - Routine Psychiatric Exam Present: normal thought process Results - Labs Laboratory Last Values WBC 14.6 X10^3/uL (4.5-11.0) H 01/04/22 06:00 RBC 3.59 X10^6/uL (4.5-5.9) L 01/04/22 06:00 Hgb 9.9 g/dL (13.5-17.5) L 01/04/22 06:00 Hct 29.7 % (41-53) L 01/04/22 06:00 MCV 82.7 fL (80-100) 01/04/22 06:00 MCH 27.5 PG (26-34) 01/04/22 06:00 MCHC 33.2 % (30-36) 01/04/22 06:00 RDW 20.8 % (11.6-14.8) H 01/04/22 06:00 Plt Count 72 X10^3/uL (150-400) L 01/04/22 06:00 Neut % (Auto) Not Reportable 01/04/22 06:00 Lymph % (Auto) Not Reportable 01/04/22 06:00 [place] % (Auto) Not Reportable 01/04/22 06:00 Eos % (Auto) Not Reportable 01/04/22 06:00 Baso % (Auto) Not Reportable 01/04/22 06:00 Neut # (Auto) 6900 /uL (7672-1293) 12/30/21 04:35 Lymph # (Auto) Not Reportable 01/04/22 06:00 [place] # (Auto) Not Reportable 01/04/22 06:00 Eos # (Auto) 4100 /uL (0-450) H 12/30/21 04:35 Baso # (Auto) Not Reportable 01/04/22 06:00 Total Counted 100 01/04/22 06:00 Seg Neutrophils % 35.0 % (38-70) L 01/04/22 06:00 Band Neutrophils % 2.0 % (3-7) L 01/04/22 06:00 Lymphocytes % (Manual) 11.0 % (25-45) L 01/04/22 06:00 Atypical Lymphs % 1.0 % (-0) H 01/03/22 05:25 Monocytes % (Manual) 7.0 % (2-11) 01/04/22 06:00 Eosinophils % (Manual) 45.0 % (2-4) H 01/04/22 06:00 Metamyelocytes % 1.0 % (-0) H 12/31/21 04:50 Myelocytes % 3.0 % (-0) H 12/29/21 19:46 Neutrophils # (Manual) 5402 /uL (1739-7968) 01/04/22 06:00 Platelet Estimate Decreased on smear 12/29/21 05:08 RBC Morphology Not Reportable 01/04/22 06:00 Polychromasia 1+ H 12/29/21 19:46 Poikilocytosis 1+ H 01/04/22 06:00 Anisocytosis 1+ H 01/04/22 06:00 Spherocytes 2+ H 12/29/21 19:46 Schistocytes 2+ H 01/03/22 05:25 Haptoglobin 41 mg/dL (34-355) 01/03/22 05:25 PT 14.3 SECONDS (10.1-12.7) H 01/04/22 06:00 INR 1.3 (0.9-1.3) 01/04/22 06:00 APTT 31 SECONDS (26.4-36.2) 01/04/22 06:00 Fibrinogen 423 mg/dL (211-428) 01/04/22 06:00 D-Dimer 1485 ng/mL (<230) H 01/04/22 06:00 Sodium 134 mmol/L (137-145) L 01/04/22 06:00 Potassium 3.8 mmol/L (3.4-5.1) 01/04/22 06:00 Chloride 105 mmol/L (98-107) 01/04/22 06:00 Carbon Dioxide 27 mmol/L (22-32) 01/04/22 06:00 BUN 27 mg/dL (9-20) H 01/04/22 06:00 Creatinine 1.13 mg/dL (0.66-1.25) 01/04/22 06:00 Estimated GFR > 60 mL/min (>60) 01/04/22 06:00 BUN/Creatinine Ratio 23.9 (6-22) H 01/04/22 06:00 Glucose 80 mg/dL (80-110) 01/04/22 06:00 Lactate 1.3 mmol/L (0.7-2.1) 12/28/21 17:21 Calcium 8.3 mg/dL (8.4-10.2) L 01/04/22 06:00 Iron 61 ug/dL (49-181) D 12/29/21 05:08 TIBC 168 ug/dL (261-462) L 12/29/21 05:08 % Saturation 36 % (20-50) D 12/29/21 05:08 Transferrin 118 mg/dL (206-381) L 12/29/21 05:08 Ferritin 382 ng/mL (18-464) 01/02/22 08:44 Total Bilirubin 1.3 mg/dL (0.2-1.3) 01/04/22 06:00 AST 29 IU/L (17-59) 01/04/22 06:00 ALT 19 IU/L (<50) 01/04/22 06:00 Alkaline Phosphatase 178 U/L (38-126) H 01/04/22 06:00 Lactate Dehydrogenase 781 U/L (313-618) H 01/03/22 05:25 Total Creatine Kinase 35 U/L (55-170) L 12/28/21 15:25 CK-MB (CK-2) TNP 12/28/21 15:25 CK-MB (CK-2) Rel Index TNP 12/28/21 15:25 Troponin I 0.014 ng/mL (0.01-0.034) 12/28/21 15:25 NT-Pro-B Natriuret Pep 1300 pg/mL (<450) H 12/28/21 15:25 Total Protein 6.3 g/dL (6.3-8.2) 01/04/22 06:00 Albumin 2.2 g/dL (3.5-5.0) L 01/04/22 06:00 Globulin 4.1 g/dL (1.7-4.1) 01/04/22 06:00 Albumin/Globulin Ratio 0.5 (1.0-2.8) L 01/04/22 06:00 Vitamin B12 820 pg/mL (239-931) 12/29/21 05:08 Folate 8.1 ng/mL (2.76-20.0) 12/29/21 05:08 SARS-CoV-2 (PCR) Negative (Negative) 12/28/21 16:25 Blood Type B Positive 01/02/22 13:16 Antibody Screen Negative 12/28/21 14:45 Crossmatch See Detail 12/28/21 14:45 - Imaging Additional studies: Procedures Assistance with Respiratory Ventilation, Less than 24 Consecutive Hours, Continuous Positive Airway Pressure (10/11/21) Inspection of Upper Intestinal Tract, Via Natural or Artificial Opening Endoscopic (12/01/20) Transfusion of Nonautologous Red Blood Cells into Peripheral Vein, Percutaneous Approach (12/01/20) Assessment and Plan (1) Eosinophilia Federico is a 81-year-old gentleman who was admitted to the hospital because of shortness of breath on exertion. I was consulted on the findings of significant eosinophilia, thrombocytopenia and anemia. His eosinophilia was first noted in September 2021 and has been slowly increasing. It could be earlier than noted. Now AEC was about 6.57 K (14.6x45%). His anemia history is much longer likely due to chronic disease, GI bleeding etc. But thrombocytopenia was noted only during current admission with bereket of 32K. His past medical history is significant for congestive heart failure, atrial fibrillation on Xarelto, iron deficiency anemia, GI bleeding and aortic stenosis and suspicious chronic interstitial lung disease. 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 Potential differential diagnosis includes possibly aortic stenosis, TTP, infection, etc.. I would recommend that we send off blood sample for [id number] activity test. Meanwhile I would recommend monitoring CBC daily. If there shows worsening thrombocytopenia and anemia, I recommend high-dose steroids. Please try not to give platelet transfusion unless bleeding. If possible, consider transferring the patient to higher level of care regarding plasma exchange. As for the exact etiology of eosinophilia, in my opinion, it most likely is secondary to other factors, for example, medication (antibiotics), infection (pneumonia), allergies etc. However, underlying bone marrow disorder needs to be excluded. I will proceed with bone marrow aspiration and biopsy (see separate procedure note). Plan: Please check serum [id number] activity Follow-up on hematopathology peripheral blood smear review I will proceed with bone marrow aspiration and biopsy today No platelet transfusion unless active bleeding Continue anticoagulation with lovenox or Xarelto (2) Thrombocytopenia See above eosinophilia. (3) Anemia See above eosinophilia
--- NOTE | 2022-01-04 13:27 | ONC.PROCEDUR ---
Date of procedure: 01/04/22 Diagnosis: Anemia, thrombocytopenia and eosinophilia of unknown etiology Onc Bone Marrow: bone marrow biopsy and aspiration Procedure: Patient was instructed to lie on the left side. Right posterior iliac crest was identified, sterilized, and draped per standard protocol. Local anesthesia was obtained with injection of 2% lidocaine. Bone marrow aspiration needle was inserted without difficulty. I initially aspirated forcefully about 0.5 cc of bone marrow sample and handed out for slide preparation. Then I aspirated 20 cc of bone marrow for sample preparation. Then I removed the aspiration needle, and inserted the [employer] core needle biopsy. I obtained successfully a 3 cm long core sample. Patient tolerated the procedure well. No immediate complications. Patient was instructed to lie on his back for about 10-15 minutes.
[2022-01-04] MEDS: cefTRIAXone 1,000 MG in SODIUM CHLORIDE 0.9% 100 ML 200 MG IV (14:01)
--- NOTE | 2022-01-04 14:57 | PT.IPTN ---
Current Diagnoses Anemia, unspecified (12/28/21) Hypokalemia (12/28/21) Physical Therapy Treatment Note M2 PT-IP Current Condition Start: 12/31/21 13:34 Freq: NEEDED Status: Active Protocol: Document 12/31/21 11:25 AB (Rec: 12/31/21 13:44 AB [id number]) Physical Therapy Current Condition Current Condition Evaluation Date 12/31/21 Treatment Diagnosis anemia; difficulty in walking Onset Date 12/28/21 M3 PT-IP Subjective Start: 12/31/21 13:34 Freq: NEEDED Status: Active Protocol: Document 01/04/22 14:57 AW (Rec: 01/04/22 17:06 AW [id number]) Subjective Physical Therapy Visit Type Type Treatment Note Visit Start Time 14:42 Visit Stop Time 14:57 Total Visit Minutes 15 Notes Pt underwent bedside bone marrow biopsy earlier this afternoon. Number of MATHEMATICAL ENGINEERING TECHNICIAN Visits 0 Physical Therapy Visit Comments Patient Comments Pt would like to get up to the chair. Therapy Pain Assessment Pain When Pain Assessed During Mobility Pain Present Pain Present Denied Pain M4 PT-IP Mobility and Gait Start: 12/31/21 13:34 Freq: NEEDED Status: Active Protocol: Document 01/04/22 14:57 AW (Rec: 01/04/22 17:06 AW [id number]) PT-Bed Mobility Assessment Supine to Sit Supine to Sit Minimal Assistance,1 Person Assistance PT-Transfer Assessment Sit to and From Stand Sit to and from Stand Moderate Assistance,1 Person Assistance,Use of Upper Extremities Equipment Transfer Assistive Device Gait Belt,Front Wheeled Walker Orthotic/Prosthetic Devices or Brace: No Transfers Transfer Destination Chair Transfer Technique ambulated with FWW Transfer Ability Level of Assist Moderate Assistance,1 Person Assistance,Use of Upper Extremities Comments Mobility Comments Pt was lying in bed as PT arrived. BP 128/75 HR 80. Pt sat up on the left side of the bed min A, needing some support to right his trunk. He stood at EOB mod A and used FWW to walk 5 feet to the chair before sitting down mod A x 1. Gait Assessment Gait Gait Assistance Required: Moderate Assistance,1 Person Assist Distance (Feet) 5 Assistive Devices Assistive Device Gait Belt,Front Wheeled Walker Orthotic/Prosthetic Devices or Brace: No Gait Deviations General Gait Pattern Decreased Stride Length, Decreased Feet Clearance, Flexed Trunk,Step-to Gait Factors Limiting Gait Function Factors Limiting Gait Function Decreased Activity Tolerance, Decreased Strength,Difficulty Following Directions,Poor Balance,Poor Safety Awareness Comments Gait Comments During transfer, pt was excessively flexed at the trunk and both knees but was able to support himself with mod A and FWW. PT-Balance Assessment Sitting Balance and Reactions Static Sitting Balance Ability Good Dynamic Sitting Balance Ability Fair Standing Balance and Reactions Static Standing Balance Ability Fair Dynamic Standing Balance Ability Poor Device Used FWW M5 PT-IP Objective Assessments Start: 12/31/21 13:34 Freq: NEEDED Status: Active Protocol: Document 12/31/21 11:25 AB (Rec: 12/31/21 13:44 AB [id number]) Orientation Orientation/Cognition Level of Alertness Alert Orientation Name,Place,Situation Language Function Ability No Deficits Noted Safety Awareness Decreased Safety Awareness Memory Description No Deficits Noted Gross Range of Motion Lower Extremity ROM Assessment Within Functional Limits Strength Lower Extremity Strength Assessment Bilaterally Impaired Hip 4-/5 Knee 3+/5 Muscle Tone Muscle Tone WNL Yes M6 PT-IP Treatment Start: 12/31/21 13:34 Freq: NEEDED Status: Active Protocol: Document 01/04/22 14:57 AW (Rec: 01/04/22 17:06 AW [id number]) Physical Therapy Treatment Exercises Exercises Quad Sets,Heel Slides Education Education Provided Safety Other Treatments Other Treatment Performed Exercises done pre-mobility. M7 PT-IP Assessment and Plan Start: 12/31/21 13:34 Freq: NEEDED Status: Active Protocol: Document 01/04/22 14:57 AW (Rec: 01/04/22 17:06 AW [id number]) PT Summary Assessment and Plan Potential Rehabilitation Potential Fair Status of Condition at Evaluation Evolving Summary Impairments Pain,ROM,Strength,Balance, Coordination,Sensation,Tone, Cognition,Bed Mobility, Transfers,Gait,Activity Tolerance Progress Towards Goals Slow Progress due to Medical Issues,Slow Progress due to Activity Tolerance Assessment Summary Pt was willing to mobilize today after bedside bone marrow biopsy. Activity tolerance remains limited but pt was able to transfer with FWW and one-person assist ( improved from previous 2- person assist transfers). Pt will require SNF rehab to improve strength and functional mobility independence. Goals Bed Mobility Goal Independent Transfer Goal Standby Assistance,Front Wheeled Walker,Four Wheeled Walker Gait Goal Standby Assistance,Front Wheel Walker Gait Distance 100 Other Goals improve ambulation using 4WW ~ 200 ft SBA up/down 3 steps R rail ascending SBA Days to Meet Goals 10 Frequency of Treatment Frequency Of Treatment Once a Day Treatment Plan Physical Therapy Treatment Plan Bed Mobility Training,Transfer Training,Gait Training, Therapeutic Exercise,Balance Retraining,Discharge Planning, Hot or Cold Pack,Neuromuscular Re-ed,Coordination Retraining Recommendations To Nursing Amount of Assist Needed 1 Person Assist Discharge Recommendations PT Discharge Recommendations SNF Rehab Transportation Needs at Discharge Private Vehicle,Wheelchair/ Cabulance
[2022-01-04 16:00] VITALS: BP 119/75; PULSE 80; RESP 16; TEMP 36.3; O2SAT 93
[2022-01-04 19:00] VITALS: O2SAT 92
[2022-01-04 19:35] VITALS: O2SAT 92
[2022-01-04 19:47] VITALS: BP 124/66; PULSE 84; RESP 18; TEMP 37.1; O2SAT 92
[2022-01-05] VITALS (8 sets, daily range): BP systolic 137–172; BP diastolic 66–95; PULSE 75–90; RESP 16–18; TEMP 36.2–37.3; O2SAT 91–94
[2022-01-05 06:05] LABS: Alanine Aminotransferase 21 IU/L (<50); Albumin 2.5 g/dL (3.5-5.0); Albumin Globulin Ratio 0.6 (1.0-2.8); Alkaline Phosphatase 187 U/L (38-126); Aspartate Aminotransferase 34 IU/L (17-59); BUN Creatinine Ratio 23.1 (6-22); Bilirubin Total 1.4 mg/dL (0.2-1.3); Blood Urea Nitrogen 28 mg/dL (9-20); Calcium 8.3 mg/dL (8.4-10.2); Carbon Dioxide 29 mmol/L (22-32); Chloride 104 mmol/L (98-107); Estimated Glomerular Filt Rate > 60 mL/min (>60); Globulin 4.4 g/dL (1.7-4.1); Glucose 92 mg/dL (80-110); HEMOLYSIS < 15 (0-50); Sodium 134 mmol/L (137-145); Total Protein 6.9 g/dL (6.3-8.2)
[2022-01-05] MEDS: PANTOPRAZOLE DR 40 MG TABLET PO ×2 (06:21→21:48)
[2022-01-05 06:34] LABS: Basophils Absolute Auto 100 /uL (0-100); Eosinophils Absolute Auto 5300 /uL (0-450); Eosinophils Percent Auto 35.4 % (2-4); Hematocrit 29.4 % (41-53); Hemoglobin 9.8 g/dL (13.5-17.5); Lymphocytes Absolute Auto 1500 /uL (1100-4500); Lymphocytes Percent Auto 9.8 % (25-40); Mean Corpuscular HGB Conc 33.3 % (30-36); Mean Corpuscular Hemoglobin 27.7 PG (26-34); Mean Corpuscular Volume 83.2 fL (80-100); Monocytes Absolute Auto 1200 /uL (0-900); Monocytes Percent Auto 7.8 % (3-14); Neutrophils Absolute Auto 6900 /uL (1500-7000); Platelet Count 48 X10^3/uL (150-400); Red Blood Cell Count 3.53 X10^6/uL (4.5-5.9); Red Cell Distribution Width 21.6 % (11.6-14.8)
--- NOTE | 2022-01-05 07:03 | P.PN_ITS ---
Subjective Subjective Date Patient Seen: 01/05/22 Time Patient Seen: 07:03 Interval history: Patient is about the same this morning. Status post bone marrow biopsy yesterday, denies pain this morning. Eating breakfast without any nausea or vomiting. Still no energy to move out of the bed. Denies any active bleeding. Exam Vital Signs (past 8 hours): - 01/05/22 05:09 01/05/22 03:40 Temperature 98.2 F Pulse Rate 80 80 Respiratory Rate 16 Blood Pressure 137/66 137/66 Pulse Oximetry 92 Oxygen Delivery Method Room Air Oxygen Flow Rate 0 Narrative Exam Narrative: GENERAL:? Alert and oriented, appearing stated age, weak and fraril. HEENT:? Head normocephalic/atraumatic.? Extraocular movements intact. LUNGS:? Clear to ausculation bilaterally, no wheezes, rhonchi or rales. CV:? Irregularly irregular with 3/5 systolic murmur. ABDOMEN:? Soft, non-tender, non-distended, no organomegaly.? Positive bowel sounds. EXTREMITIES:? No clubbing, cyanosis, or edema. NEURO:? Cranial nerves II through XII grossly intact, no focal deficits. PSYCH:? Alert and oriented x 3. SKIN:? New purple contusions at IV sites, no petechiae Objective Labs Result Diagrams: 01/05/22 05:29 01/05/22 05:29 Labs: Laboratory Results - last 24 hr 01/04/22 01/04/22 01/04/22 06:00 06:00 06:00 WBC 14.6 H RBC 3.59 L Hgb 9.9 L Hct 29.7 L MCV 82.7 MCH 27.5 MCHC 33.2 RDW 20.8 H Plt Count 72 L Neut % (Auto) Not Reportable Lymph % (Auto) Not Reportable [place] % (Auto) Not Reportable Eos % (Auto) Not Reportable Baso % (Auto) Not Reportable Neut # (Auto) Lymph # (Auto) Not Reportable [place] # (Auto) Not Reportable Eos # (Auto) Baso # (Auto) Not Reportable Total Counted 100 Seg Neutrophils % 35.0 L Band Neutrophils % 2.0 L Lymphocytes % (Manual) 11.0 L Monocytes % (Manual) 7.0 Eosinophils % (Manual) 45.0 H Neutrophils # (Manual) 5402 RBC Morphology Not Reportable Poikilocytosis 1+ H Anisocytosis 1+ H PT 14.3 H INR 1.3 APTT 31 Fibrinogen 423 D-Dimer 1485 H Sodium 134 L Potassium 3.8 Chloride 105 Carbon Dioxide 27 BUN 27 H Creatinine 1.13 Estimated GFR > 60 BUN/Creatinine Ratio 23.9 H Glucose 80 Calcium 8.3 L Total Bilirubin 1.3 AST 29 ALT 19 Alkaline Phosphatase 178 H Total Protein 6.3 Albumin 2.2 L Globulin 4.1 Albumin/Globulin Ratio 0.5 L 01/05/22 01/05/22 05:29 05:29 WBC 15.0 H RBC 3.53 L Hgb 9.8 L Hct 29.4 L MCV 83.2 MCH 27.7 MCHC 33.3 RDW 21.6 H Plt Count 48 L Neut % (Auto) 46.0 L Lymph % (Auto) 9.8 L [place] % (Auto) 7.8 Eos % (Auto) 35.4 H Baso % (Auto) 1.0 Neut # (Auto) 6900 Lymph # (Auto) 1500 [place] # (Auto) 1200 H Eos # (Auto) 5300 H Baso # (Auto) 100 Total Counted Seg Neutrophils % Band Neutrophils % Lymphocytes % (Manual) Monocytes % (Manual) Eosinophils % (Manual) Neutrophils # (Manual) RBC Morphology Poikilocytosis Anisocytosis PT INR APTT Fibrinogen D-Dimer Sodium 134 L Potassium 4.0 Chloride 104 Carbon Dioxide 29 BUN 28 H Creatinine 1.21 Estimated GFR > 60 BUN/Creatinine Ratio 23.1 H Glucose 92 Calcium 8.3 L Total Bilirubin 1.4 H AST 34 ALT 21 Alkaline Phosphatase 187 H Total Protein 6.9 Albumin 2.5 L Globulin 4.4 H Albumin/Globulin Ratio 0.6 L [facility] Medical History Atrial fibrillation Atrial flutter Barretts esophagus CHF (congestive heart failure) Chronic cough Degenerative arthritis GERD (gastroesophageal reflux disease) GI bleed History of cardioversion Iron deficiency anemia Spinal stenosis of lumbar region with neurogenic claudication Surgical History History of coronary angioplasty with insertion of stent Hx of cholecystectomy Hx of tonsillectomy Social History household members: spouse Smoking Status: Never smoker alcohol intake: never Assessment & Plan Assessment & Plan narrative: 1.? 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 Hemoglobin upon discharge was 8.8.? EGD showed gastric ulcers.? Was unable to complete colonoscopy secondary to extreme hypokalemia from prep.? Was discharged on Protonix and repeat colonoscopy was scheduled but never completed.? At time of GI bleed, patient was on dual anti- platelet therapy including Plavix and Xarelto secondary to angioplasty to LAD in August of 2020.? Patient also had iron deficiency anemia at that time and was started on ferrous sulfate.? Due to macroscopic hematuria, cardiology discontinued plavix after 10 months of therapy on 06/25/21. During this inpatient hospitalization, patient has had a symptomatic, normocytic/normochromic anemia, iron studies, Vitamin B12 and folate consistent with anemia of chronic disease but peripheral smear is abnormal and points to something more such as cancer due to presence of myelocytes, metamyelocytes, atypical lymphocytes on peripheral smear.? Eosinophils were also elevated at 39%, absolute count 4100.? Patient does have eosinophilic esophagitis.? Has had profound weakness and shortness of breath, no energy to even walk.? Back itchy but no rash.? Hemoglobin/hematocrit upon admission was 8.3/25.3.? On the following day, H/H was 7.5/22.7, treated with PRBC x2 units.? Status post transfusion, H/H was 10.5/31.8.? Today it is 9.8/29.4.? Guaiac notably negative x2 during stay.? Colonoscopy was not pursued secondary to age and hypokalemia upon admission.? Hypokalemia likely due to torsemide.? Patient was taken off of anticoagulation upon admission and started on Protonix.? Bone marrow biopsy completed yesterday by Dr. Aguilar. Plan:? Brandyn continue to work on transfer today while awaiting bone marrow biopsy results. H/H stable for now. Will continue to trend labs. 2.? Thrombocyteopenia, acute New problem.? Platelets on 05/28/2020 were 267; on 09/26/2019, 191.? Platelets on admission were 53, then fell to 32, due to concern for active bleeding and sympomatic anemia, he was repleted with 2 units with follow-up values of 65, 53, 41, and 32 again on 01/02/22.? He was transfused another 2 units of platelets, labs the following morning showed 88, he is 48 today.? He has no petechiae or purpura.? He is afebrile.? He does have anemia as stated above and leukocytosis that is climbing despite antibiotic therapy.? Peripheral smear prior to PRBC transfusion revealed 1+ poikilocytosis, 2+ anisocytosis, and 2+ schistocytosis.? Pathology review is pending, stat consult requested 3 days ago, still have not received official read.? Concern for DIC as platelets have continued to fall despite replacement; INR/PT (1.2/13.8), fibrinogen (435-->423 --> 423), and d-dimer (605 --> 723 --> 1485) are elevated or high normal.? 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 Also on the differential but unlikely due to normal kidney function is hem olytic uremic syndrome.? TTP could also cause thrombocytopenia but the patient does not have any petechiae or purpura.? Plan:? Dr. Aguilar consulting, awaiting bone marrow biopsy results. Watching H/H c losely, will hold off on platelet transfusion unless actively bleeding. Will continue to attempt transfer. 3.? Eosinophila Occurred during last admission 3 months ago, now present again, absolute count 4100.? Concern for malignancy. Plan:? As above. 4. Hypokalemia, likely secondary to home torsemide without potassium supplementation Low potassium of 2.5 was repleted, now normalized and stable.? Plan:? Off torsemide, trending labs. 5. Abnormal CT scan consistent with chronic interstitial lung disease and superimposed aspiration pneumonia Chest x-ray on admission showed bibasilar infiltrates, consolidation, and small bilateral pleural effusions concerning for pneumonia.? Follow-up CT scan showed an UIP pattern consistent with chronic, interstitial lung disease as well as a basilar predominance consolidation, increased from prior study suggestive of a possible aspiration pneumonia given the presence of esophageal fluid distension and a patulous appearing esophagus.? Patient did receive amiodorone for his atri al fibrillation 3 months ago, possibly contributing to the interstitial findings. Patient was not treated with antibiotics during this hospital stay initially since he was afebrile.? However, he has had a white count throughout his stay as noted above and on hospital day 4, Rocephin was started, now on day 5 of antibiotics. Plan:? Continue rocephin. 6.? Leukocytosis with eosinophila, differential diagnosis includes infection such as aspiration pneumonia vs. leukemia -Eosinophilia occured during last admission 3 months ago, now present again, absolute count 4100.? Concern for malignancy. Plan:? Trending labs, please see above. 7.? Persistent atrial fibrillation, rate controlled, chronic Echo was not updated during this hospital stay.? He did have a recent echo on 10/11/2021 that showed improvement of his ejection fraction to 55-60%.? Right atrium noted again to be severely dilated.? Although BNP was not run during this hospital stay, he was given Lasix when antibiotics were initiated on hospital day 4.? He normally takes torsemide at home.? Home metoprolol dose was decreased during stay to 6.25 mg p.o. b.i.d. due to hypotension (101-113/51-59).? Xarelto was discontinued secondary to concern over bleeding. Plan:? Continue metoprolol, watching blood pressure and heart rate closely. Dr. Aguilar advises restarting lovenox or xarelto as H/H have been stable, will restart xarelto today. 8.? Heart Failure with preserved ejection fraction. Plan:? Please see #7. 9.? Acute kidney injury, new, resolved Plan: Will trend labs. 10. Hyperlipidemia, chronic Plan:? Continue home atorvastatin. 11. Weakness, profound, secondary to chronic and acute conditions Plan:? Continue PT/OT. Dispo: Will again work on transfer to regional facility. Code status:? DNR.? GI prophylaxis.? PPI.? DVT prophylaxis.? SCDs, xarelto Covid:? negative Time Spent With Patient Critical Care time: Greater than 35 minutes total time was spent on day of service, evaluating the patient on the floor, including examining the patient, discussing clinical course with clinical and nursing staff, reviewing clinical course in the computer, preparing documentation and writing orders for continued management of care, discussing status with family as appropriate, reviewing plans for the next 24 hours with both patient/family and nursing staff as appropriate. Quality VTE Deep Vein Thrombosis/Pulmonary Embolism Present on Admission: No
[2022-01-05 07:13] LABS: Add Manual Diff / Slide Review NO; Platelet Estimate Decreased on smear
[2022-01-05 07:14] LABS: Anisocytosis 1+
--- NOTE | 2022-01-05 08:03 | PC.NURSE ---
Addendum entered by Kisha France R.N. 01/05/22 12:11: states that patient may go to surgery on , she has been given 2 oxycodone and a bed bath. Patient is resting comfortably now. Addendum entered by Kisha France R.N. 01/05/22 09:44: ordered for patient to start on xarelto, phoned her and she states to call Oncology and see what suggests, per his notes he suggests that patient start back up on xarelto. He is not in the office today, called [facility] for oncology and she read his notes. Will start patient back on his medication. Addendum entered by Kisha France R.N. 01/05/22 09:33: New iv started to R.forearm, 18g. IV to l.forarm and l.ac d/cd. Patient tolerated well. Original Note: Patients platelet count at 48. He is alert and oriented x3. Dressing r.right hip bone is cdi and patient states that he is not having any pain from having a bone marrow biopsy yesterday. would like the patient to be transferred to another hospital when a bed is available. He has some bruises to his torso and arms that are healing. Federico wants to get up for lunch, and is a one person assist to the chair with his walker. He is eating his breakfast with hob up.
[2022-01-05] MEDS: METOPROLOL ER 25 MG TABLET 6.25 MG PO ×2 (09:25→21:48)
[2022-01-05] MEDS: ATORVASTATIN 20 MG TABLET 40 MG PO (09:25)
[2022-01-05] MEDS: SODIUM CHLORIDE 0.9% FLUSH 10 ML IV ×2 (09:26→21:48)
[2022-01-05] MEDS: RIVAROXABAN 10 MG TABLET 20 MG PO (09:57)
--- NOTE | 2022-01-05 10:37 | PT.IPTN ---
Current Diagnoses Anemia, unspecified (12/28/21) Hypokalemia (12/28/21) Physical Therapy Treatment Note M2 PT-IP Current Condition Start: 12/31/21 13:34 Freq: NEEDED Status: Active Protocol: Document 12/31/21 11:25 AB (Rec: 12/31/21 13:44 AB [id number]) Physical Therapy Current Condition Current Condition Evaluation Date 12/31/21 Treatment Diagnosis anemia; difficulty in walking Onset Date 12/28/21 M3 PT-IP Subjective Start: 12/31/21 13:34 Freq: NEEDED Status: Active Protocol: Document 01/05/22 10:21 KS (Rec: 01/05/22 12:20 KS [id number]) Subjective Physical Therapy Visit Type Type Treatment Note Visit Start Time 10:21 Visit Stop Time 10:37 Total Visit Minutes 16 Number of INSTRUCTIONAL TECHNOLOGY INSTRUCTOR Visits 1 Physical Therapy Visit Comments Patient Comments Pt agreeable to exercises in bed only. M4 PT-IP Mobility and Gait Start: 12/31/21 13:34 Freq: NEEDED Status: Active Protocol: Document 01/05/22 10:21 KS (Rec: 01/05/22 12:20 KS [id number]) PT-Transfer Assessment Comments Mobility Comments Pt in bed and in room upon arrival. Pt refused out of bed mobility, but agreed to exercises in bed. Pt completed 2x10 bilateral ankle pumps, quad sets, glute sets, heel slides, and SLR and reported fatigue. Pt left in bed w/ all needs in reach. M5 PT-IP Objective Assessments Start: 12/31/21 13:34 Freq: NEEDED Status: Active Protocol: Document 12/31/21 11:25 AB (Rec: 12/31/21 13:44 AB [id number]) Orientation Orientation/Cognition Level of Alertness Alert Orientation Name,Place,Situation Language Function Ability No Deficits Noted Safety Awareness Decreased Safety Awareness Memory Description No Deficits Noted Gross Range of Motion Lower Extremity ROM Assessment Within Functional Limits Strength Lower Extremity Strength Assessment Bilaterally Impaired Hip 4-/5 Knee 3+/5 Muscle Tone Muscle Tone WNL Yes M6 PT-IP Treatment Start: 12/31/21 13:34 Freq: NEEDED Status: Active Protocol: Document 01/05/22 10:21 KS (Rec: 01/05/22 12:20 KS [id number]) Physical Therapy Treatment Exercises Exercises Ankle Pumps,Gluteal Sets,Quad Sets,Heel Slides,Straight Leg Raises Education Education Provided Safety M7 PT-IP Assessment and Plan Start: 12/31/21 13:34 Freq: NEEDED Status: Active Protocol: Document 01/05/22 10:21 KS (Rec: 01/05/22 12:20 KS [id number]) PT Summary Assessment and Plan Potential Rehabilitation Potential Fair Status of Condition at Evaluation Evolving Summary Impairments Pain,ROM,Strength,Balance, Coordination,Sensation,Tone, Cognition,Bed Mobility, Transfers,Gait,Activity Tolerance Progress Towards Goals Slow Progress due to Medical Issues,Slow Progress due to Activity Tolerance Assessment Summary Pt limited by weakness and low activity tolerance. Able to tolerate leg exercises in bed to promote blood flow and strengthening but refused further mobility. Pt will require SNF to improve strength and functional mobility independence. Goals Bed Mobility Goal Independent Transfer Goal Standby Assistance,Front Wheeled Walker,Four Wheeled Walker Gait Goal Standby Assistance,Front Wheel Walker Gait Distance 100 Other Goals improve ambulation using 4WW ~ 200 ft SBA up/down 3 steps R rail ascending SBA Days to Meet Goals 10 Frequency of Treatment Frequency Of Treatment Once a Day Treatment Plan Physical Therapy Treatment Plan Bed Mobility Training,Transfer Training,Gait Training, Therapeutic Exercise,Balance Retraining,Discharge Planning, Hot or Cold Pack,Neuromuscular Re-ed,Coordination Retraining Recommendations To Nursing Amount of Assist Needed 1 Person Assist Discharge Recommendations PT Discharge Recommendations SNF Rehab Transportation Needs at Discharge Private Vehicle,Wheelchair/ Cabulance
[2022-01-05] MEDS: cefTRIAXone 1,000 MG in SODIUM CHLORIDE 0.9% 100 ML 200 MG IV (11:41)
--- NOTE | 2022-01-05 12:22 | OT.IPNOTE ---
Attempted to see pt for OT services. Pt states he is just too fatigued to participate in therapy at this time. Will hold and continue to follow.
--- NOTE | 2022-01-05 13:27 | CM.DPC ---
DCP Cont: Per MD, pt is needing higher level of care and is awaiting bed placement at another hospital facility. Pt had a bone biopsy done yesterday by Dr. Aguilar. Results still pending. Currently no needs from DCP but will continue to follow. P: Pt awaiting placement at another hospital facility once beds are available. Jennifer James RN/DCP
[2022-01-05 21:48] LABS: Factor VIII Activity, Clotting 84 % (56-140)
[2022-01-06] VITALS (8 sets, daily range): BP systolic 110–164; BP diastolic 71–86; PULSE 77–94; RESP 17–18; TEMP 36.3–37; O2SAT 92–94
[2022-01-06 06:16] LABS: Alanine Aminotransferase 19 IU/L (<50); Albumin 2.4 g/dL (3.5-5.0); Albumin Globulin Ratio 0.6 (1.0-2.8); Alkaline Phosphatase 174 U/L (38-126); Aspartate Aminotransferase 32 IU/L (17-59); BUN Creatinine Ratio 21.8 (6-22); Bilirubin Total 1.3 mg/dL (0.2-1.3); Blood Urea Nitrogen 26 mg/dL (9-20); Calcium 8.3 mg/dL (8.4-10.2); Carbon Dioxide 27 mmol/L (22-32); Chloride 105 mmol/L (98-107); Estimated Glomerular Filt Rate > 60 mL/min (>60); Globulin 4.2 g/dL (1.7-4.1); Glucose 93 mg/dL (80-110); HEMOLYSIS < 15 (0-50); Potassium 3.8 mmol/L (3.4-5.1); Sodium 134 mmol/L (137-145); Total Protein 6.6 g/dL (6.3-8.2)
[2022-01-06 06:17] LABS: Add Manual Diff / Slide Review YES; Hematocrit 27.9 % (41-53); Hemoglobin 9.3 g/dL (13.5-17.5); Mean Corpuscular HGB Conc 33.4 % (30-36); Mean Corpuscular Hemoglobin 27.7 PG (26-34); Mean Corpuscular Volume 82.9 fL (80-100); Red Blood Cell Count 3.36 X10^6/uL (4.5-5.9); Red Cell Distribution Width 21.7 % (11.6-14.8)
[2022-01-06 06:32] LABS: INR 2.3 (0.9-1.3); Prothrombin Time 25.9 SECONDS (10.1-12.7)
[2022-01-06 06:33] LABS: Fibrinogen 417 mg/dL (211-428)
[2022-01-06 06:35] LABS: PTT Partial Thromboplastin Tim 37 SECONDS (26.4-36.2)
[2022-01-06 06:42] LABS: D Dimer 1985 ng/mL (<230)
[2022-01-06] MEDS: PANTOPRAZOLE DR 40 MG TABLET PO ×2 (06:53→20:46)
[2022-01-06 07:35] LABS: Neutrophils Absolute Manual 6860 /uL (3000-5900); Total Cells Counted 100
[2022-01-06 07:38] LABS: Anisocytosis 2+
[2022-01-06 07:39] LABS: Schistocytes 2+
[2022-01-06 07:40] LABS: Polychromasia 1+
[2022-01-06 07:43] LABS: Platelet Count 34 X10^3/uL (150-400)
[2022-01-06] MEDS: ATORVASTATIN 20 MG TABLET 40 MG PO (08:47)
[2022-01-06] MEDS: METOPROLOL ER 25 MG TABLET 6.25 MG PO ×2 (08:48→20:45)
[2022-01-06] MEDS: SODIUM CHLORIDE 0.9% FLUSH 10 ML IV ×2 (08:48→20:47)
[2022-01-06] MEDS: RIVAROXABAN 10 MG TABLET 20 MG PO (09:06)
--- NOTE | 2022-01-06 10:01 | PC.NURSE ---
Day shift: Incontinent of bowel and bladder this AM. Skin area at coccyx and buttox w/ no signs of skin breakdown.
--- NOTE | 2022-01-06 10:09 | PM.PN.1 ---
Subjective Subjective Date Patient Seen: 01/06/22 Time Patient Seen: 08:50 Interval history: CC: weakness Reports feeling ok this morning no pain just weak feels like he can't get out of bed. middling appetite. Appreciate Dr. Aguilar's input; continue anticoagulation, hold platelet xfusions unless actively bleeding Exam Vital Signs (past 8 hours): - 01/06/22 06:26 01/06/22 08:35 01/06/22 09:26 Temperature 97.3 F L 98.2 F Pulse Rate 77 91 H 94 H Respiratory Rate 18 17 Blood Pressure 131/78 110/71 Pulse Oximetry 92 94 Oxygen Delivery Method Oxygen Flow Rate 0 0 01/06/22 08:30 Temperature Pulse Rate Respiratory Rate Blood Pressure Pulse Oximetry 94 Oxygen Delivery Method Room Air Oxygen Flow Rate Oxygen Delivery Method Room Air Oxygen Flow Rate 0 Narrative Exam Narrative: laying comfortably in bed Const General: cooperative, comfortable, well groomed and frail appearing Resp Other: moving air well some bibasilar crackles noted Cardio Other: regular rate s1/s2 GI Other: soft nontender normal bowel sounds Skin Other: ecchymosis at IV site no petechiae Neuro General: patient alert, patient awake, patient oriented x3, moves all extremities and CN's II-XI intact bilaterally Extrem General: full ROM and no pedal edema Psych Appearance: grossly normal and well kempt Mental Status: mental status grossly normal Speech and Movement: speech and movement normal Objective Labs Result Diagrams: 01/06/22 05:46 01/06/22 05:46 Labs: Laboratory Results - last 24 hr 01/02/22 01/06/22 01/06/22 18:50 05:46 05:46 WBC RBC Hgb Hct MCV MCH MCHC RDW Plt Count Neut % (Auto) Lymph % (Auto) Moore % (Auto) Eos % (Auto) Baso % (Auto) Lymph # (Auto) Moore # (Auto) Baso # (Auto) Total Counted Seg Neutrophils % Band Neutrophils % Lymphocytes % (Manual) Monocytes % (Manual) Eosinophils % (Manual) Neutrophils # (Manual) RBC Morphology Polychromasia Anisocytosis Schistocytes PT INR APTT Fibrinogen 417 D-Dimer Factor VIII Activity 84 Sodium 134 L Potassium 3.8 Chloride 105 Carbon Dioxide 27 BUN 26 H Creatinine 1.19 Estimated GFR > 60 BUN/Creatinine Ratio 21.8 Glucose 93 Calcium 8.3 L Total Bilirubin 1.3 AST 32 ALT 19 Alkaline Phosphatase 174 H Total Protein 6.6 Albumin 2.4 L Globulin 4.2 H Albumin/Globulin Ratio 0.6 L 01/06/22 01/06/22 05:46 05:46 WBC 14.0 H RBC 3.36 L Hgb 9.3 L Hct 27.9 L MCV 82.9 MCH 27.7 MCHC 33.4 RDW 21.7 H Plt Count 34 L* Neut % (Auto) Not Reportable Lymph % (Auto) Not Reportable Moore % (Auto) Not Reportable Eos % (Auto) Not Reportable Baso % (Auto) Not Reportable Lymph # (Auto) Not Reportable Moore # (Auto) Not Reportable Baso # (Auto) Not Reportable Total Counted 100 Seg Neutrophils % 48.0 Band Neutrophils % 1.0 L Lymphocytes % (Manual) 8.0 L Monocytes % (Manual) 9.0 Eosinophils % (Manual) 34.0 H Neutrophils # (Manual) 6860 H RBC Morphology See below Polychromasia 1+ H Anisocytosis 2+ H Schistocytes 2+ H PT 25.9 H D INR 2.3 H APTT 37 H D Fibrinogen D-Dimer 1985 H Factor VIII Activity Sodium Potassium Chloride Carbon Dioxide BUN Creatinine Estimated GFR BUN/Creatinine Ratio Glucose Calcium Total Bilirubin AST ALT Alkaline Phosphatase Total Protein Albumin Globulin Albumin/Globulin Ratio [facility] Medical History Atrial fibrillation Atrial flutter Barretts esophagus CHF (congestive heart failure) Chronic cough Degenerative arthritis GERD (gastroesophageal reflux disease) GI bleed History of cardioversion Iron deficiency anemia Spinal stenosis of lumbar region with neurogenic claudication Surgical History History of coronary angioplasty with insertion of stent Hx of cholecystectomy Hx of tonsillectomy Social History household members: spouse Smoking Status: Never smoker alcohol intake: never Assessment & Plan Assessment & Plan narrative: #Anemia, normocytic/normochromic, 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 Hemoglobin upon discharge was 8.8. EGD showed gastric ulcers. Was unable to complete colonoscopy secondary to extreme hypokalemia from prep. Was discharged on Protonix and repeat colonoscopy was scheduled but never completed. At time of GI bleed, patient was on dual anti-platelet therapy including Plavix and Xarelto secondary to angioplasty to LAD in August of 2020. Patient also had iron deficiency anemia at that time and was started on ferrous sulfate. Due to macroscopic hematuria, cardiology discontinued plavix after 10 months of therapy on 06/25/21. During this inpatient hospitalization, patient has had a symptomatic, normocytic/normochromic anemia, iron studies, Vitamin B12 and folate consistent with anemia of chronic disease but peripheral smear is abnormal and points to something more such as cancer due to presence of myelocytes, metamyelocytes, atypical lymphocytes on peripheral smear. Eosinophils were also elevated at 39%, absolute count 4100. Patient does have eosinophilic esophagitis. Has had profound weakness and shortness of breath, no energy to even walk. Back itchy but no rash. Hemoglobin/hematocrit upon admission was 8.3/25.3. On the following day, H/H was 7.5/22.7, treated with PRBC x2 units. Status post transfusion, H/H was 10.5/31.8. Today it is 9.8/29.4. Guaiac notably negative x2 during stay. Colonoscopy was not pursued secondary to age and hypokalemia upon admission. Hypokalemia likely due to torsemide. Patient was taken off of anticoagulation upon admission and started on Protonix. Bone marrow biopsy completed yesterday by Dr. Aguilar. Pending biopsy results. H/H stable for now. Will continue to trend labs. #Thrombocytopenia, acute New problem. Platelets on 05/28/2020 were 267; on 09/26/2019, 191. Platelets on admission were 53, then fell to 32, due to concern for active bleeding and sympomatic anemia, he was repleted with 2 units with follow-up values of 65, 53, 41, and 32 again on 01/02/22. He was transfused another 2 units of platelets, labs the following morning showed 88, then 48 and back in the 30s today. He has no petechiae or purpura. He is afebrile. He does have anemia as stated above and leukocytosis that is climbing despite antibiotic therapy. Peripheral smear prior to PRBC transfusion revealed 1+ poikilocytosis, 2+ anisocytosis, and 2+ schistocytosis. Concern for DIC as platelets have continued to fall despite replacement; INR/PT (1.2/13.8), fibrinogen (435-->423 --> 423), and d-dimer (605 --> 723 --> 1485) are elevated or high normal. 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 Also on the differential but unlikely due to normal kidney function is hemolytic uremic syndrome. TTP could also cause thrombocytopenia but the patient does not have any petechiae or purpura. Dr. Aguilar consulting, awaiting bone marrow biopsy results. Watching H/H closely, will hold off on platelet transfusion unless actively bleeding. #Eosinophila Occurred during last admission 3 months ago, now present again, absolute count 4100. Concern for malignancy. See above. #Leukocytosis with eosinophila, differential diagnosis includes infection such as aspiration pneumonia vs. leukemia Eosinophilia occured during last admission 3 months ago, now present again, absolute count 4100. Concern for malignancy. Trending labs, please see above. #Hypokalemia, likely secondary to loop diuretics Low potassium of 2.5 was repleted, now normalized and stable. Trend and replete as needed #Abnormal chest CT scan consistent with chronic interstitial lung disease and superimposed aspiration pneumonia Chest x-ray on admission showed bibasilar infiltrates, consolidation, and small bilateral pleural effusions concerning for pneumonia. Follow-up CT scan showed an UIP pattern consistent with chronic, interstitial lung disease as well as a basilar predominance consolidation, increased from prior study suggestive of a possible aspiration pneumonia given the presence of esophageal fluid distension and a patulous appearing esophagus. Patient did receive amiodorone for his atrial fibrillation 3 months ago, possibly contributing to the interstitial findings. Patient was not treated with antibiotics during this hospital stay initially since he was afebrile. However, he has had a white count throughout his stay as noted above and on hospital day 4, Rocephin was started, now on day 5 of antibiotics, will complete course. #Persistent atrial fibrillation, rate controlled, chronic Recent echo on 10/11/2021 showed improvement of his ejection fraction to 55-60%. Right atrium noted again to be severely dilated. Although BNP was not run during this hospital stay, he was given Lasix when antibiotics were initiated on hospital day 4. He normally takes torsemide at home. Home metoprolol dose was decreased during stay to 6.25 mg p.o. b.i.d. due to hypotension (101-113/51-59). Xarelto was discontinued secondary to concern over bleeding and reinitiated yesterday at Dr. Aguilar's clearance. Continue metoprolol at reduced dose, watching blood pressure and heart rate closely. Continue xarelto can d/c SCDs #Heart Failure with preserved ejection fraction. as above #Acute kidney injury, new resolved, trend labs. #Hyperlipidemia, chronic Continue home atorvastatin. #Weakness, profound, secondary to chronic and acute conditions Continue PT/OT. Dispo: pending biopsy results, trending labs, may readdress transfer vs dc to care facility for outpt f/u as he is still too weak to get up. Code status: DNR. GI prophylaxis: PPI. DVT prophylaxis: xarelto Covid: negative Time Spent With Patient Critical Care time: I spent a total of [] minutes of critical care time on this patient's care today; this time is exclusive of procedural time. Quality VTE Deep Vein Thrombosis/Pulmonary Embolism Present on Admission: No
--- NOTE | 2022-01-06 10:28 | CM.DPNOTE ---
Emailed updated clinicals to Birgit Elam. Minerva Maher CM Assist.
--- NOTE | 2022-01-06 10:46 | PT.IPTN ---
Current Diagnoses Anemia, unspecified (12/28/21) Hypokalemia (12/28/21) Physical Therapy Treatment Note M2 PT-IP Current Condition Start: 12/31/21 13:34 Freq: NEEDED Status: Active Protocol: Document 12/31/21 11:25 AB (Rec: 12/31/21 13:44 AB [id number]) Physical Therapy Current Condition Current Condition Evaluation Date 12/31/21 Treatment Diagnosis anemia; difficulty in walking Onset Date 12/28/21 M3 PT-IP Subjective Start: 12/31/21 13:34 Freq: NEEDED Status: Active Protocol: Document 01/06/22 10:34 KS (Rec: 01/06/22 11:14 KS [id number]) Subjective Physical Therapy Visit Type Type Treatment Note Visit Start Time 10:34 Visit Stop Time 10:46 Total Visit Minutes 12 Number of DIRECTOR BIOLOGICS Visits 2 Physical Therapy Visit Comments Patient Comments Per RN, pt okay to do exercises in bed. Low platelets. M4 PT-IP Mobility and Gait Start: 12/31/21 13:34 Freq: NEEDED Status: Active Protocol: Document 01/06/22 10:34 KS (Rec: 01/06/22 11:14 KS [id number]) PT-Transfer Assessment Comments Mobility Comments Pt continues to report high level of fatigue and weakness, but agreeable to exercises in bed. Pt presents w/ decreased ability to extend knees, L>R and unable to reach full extension today. Placed rolled towels under pts ankles to faciliate passive hamstring stretch/knee extension following exercises. Pt performed 2x10 bilateral ankle pumps, quad sets, SLR, and glute sets. Left in bed w/ all needs in reach. M5 PT-IP Objective Assessments Start: 12/31/21 13:34 Freq: NEEDED Status: Active Protocol: Document 12/31/21 11:25 AB (Rec: 12/31/21 13:44 AB [id number]) Orientation Orientation/Cognition Level of Alertness Alert Orientation Name,Place,Situation Language Function Ability No Deficits Noted Safety Awareness Decreased Safety Awareness Memory Description No Deficits Noted Gross Range of Motion Lower Extremity ROM Assessment Within Functional Limits Strength Lower Extremity Strength Assessment Bilaterally Impaired Hip 4-/5 Knee 3+/5 Muscle Tone Muscle Tone WNL Yes M6 PT-IP Treatment Start: 12/31/21 13:34 Freq: NEEDED Status: Active Protocol: Document 01/06/22 10:34 KS (Rec: 01/06/22 11:14 KS [id number]) Physical Therapy Treatment Exercises Exercises Ankle Pumps,Gluteal Sets,Quad Sets,Straight Leg Raises Education Education Provided Safety Other Treatments Other Treatment Performed Rolled towels placed under ankles for passive hamstring stretch to faciliate knee extension. M7 PT-IP Assessment and Plan Start: 12/31/21 13:34 Freq: NEEDED Status: Active Protocol: Document 01/06/22 10:34 KS (Rec: 01/06/22 11:14 KS [id number]) PT Summary Assessment and Plan Potential Rehabilitation Potential Fair Status of Condition at Evaluation Evolving Summary Impairments Pain,ROM,Strength,Balance, Coordination,Sensation,Tone, Cognition,Bed Mobility, Transfers,Gait,Activity Tolerance Progress Towards Goals Slow Progress due to Medical Issues,Slow Progress due to Activity Tolerance Assessment Summary Pt able to complete exercises in bed today. Unable to perform full knee extension, hamstring tightness L>R. Encouraged pt to perform additional quad sets throughout the day and placed rilled towels under ankles for passive hamstring stretch. At this time, pt too weak to return home and will require SNF to improve strength and functional mobility. Goals Bed Mobility Goal Independent Transfer Goal Standby Assistance,Front Wheeled Walker,Four Wheeled Walker Gait Goal Standby Assistance,Front Wheel Walker Gait Distance 100 Other Goals improve ambulation using 4WW ~ 200 ft SBA up/down 3 steps R rail ascending SBA Days to Meet Goals 10 Frequency of Treatment Frequency Of Treatment Once a Day Treatment Plan Physical Therapy Treatment Plan Bed Mobility Training,Transfer Training,Gait Training, Therapeutic Exercise,Balance Retraining,Discharge Planning, Hot or Cold Pack,Neuromuscular Re-ed,Coordination Retraining Recommendations To Nursing Amount of Assist Needed 1 Person Assist Discharge Recommendations PT Discharge Recommendations SNF Rehab Transportation Needs at Discharge Private Vehicle,Wheelchair/ Cabulance
[2022-01-06] MEDS: cefTRIAXone 1,000 MG in SODIUM CHLORIDE 0.9% 100 ML 150 MG IV (11:11)
--- NOTE | 2022-01-06 13:08 | CM.DPC ---
DCP Cont. Per Dr. Miriam MD wants to wait until bone marrow biopsy results come back before any transfer happens. Dr. Pineda wants us to continue working on SNF placement. DCP called Monserrat @ [facility] and requested to have auth re-done. Monserrat will contact [facility] to inform us if pt is able to come back to [facility]. DCP to continue to follow. Jennifer James RN/YASMIN
--- NOTE | 2022-01-06 13:23 | DIET.CONS2 ---
Dietary Inpatient Consultation Note Admission Date: 12/28/2021 19:01 Pt with excellent POs 75 to 100% while waiting for transfer to higher level care. Diet: 12/29/21 Dinner General (Regular) Diet Diet Modifications: Nutrition Percent Meal Consumed 90% 01/06/22 08:45 Percent Meal Consumed 75% 01/05/22 08:49 Percent Meal Consumed 100% 01/04/22 18:00 Percent Meal Consumed 75% 01/04/22 14:18 Electronically Signed by: Dori Cabello 01/06/22 13:23 Clinical Dietitian [address] [id number]
--- NOTE | 2022-01-06 13:57 | OT.IPNOTE ---
Attempted to see x2. Pt eating lunch but agreeable to ADLs in bed later. Assisted pt for repositioning in bed. Returned later and pt sleeping soundly. Pt with platlet count of 34L on this day. No out of bed activity and obvious fatigue. Will hold and allow pt to rest.
--- NOTE | 2022-01-06 22:26 | PC.NURSE ---
Patient is alert and oriented; soft spoken. Breath sounds with crackles auscultated in bilateral mid and lower lobes; RA sat 94%. HRR but BP elevated at 164/72 although has been trending high. Denies nausea. BT present and abdomen is soft; reports he was incontinent of stool on previous shift. Is voiding per urinal; has frequency but denies dysuria. Is weak but demonstrated ability to reposition himself in bed; instructed to call for assistance prn. Gait not assessed as too weak to get out of bed. Denied pain. SCD's no longer ordered. Fall risk score is high and bed alarm is activated.
[2022-01-07] VITALS (11 sets, daily range): BP systolic 96–131; BP diastolic 58–77; PULSE 81–85; RESP 16–17; TEMP 36.6–37.1; O2SAT 91–95
[2022-01-07] MEDS: PANTOPRAZOLE DR 40 MG TABLET PO ×2 (06:26→21:46)
[2022-01-07 06:51] LABS: Alanine Aminotransferase 19 IU/L (<50); Albumin 2.4 g/dL (3.5-5.0); Albumin Globulin Ratio 0.5 (1.0-2.8); Alkaline Phosphatase 181 U/L (38-126); Aspartate Aminotransferase 34 IU/L (17-59); BUN Creatinine Ratio 21.8 (6-22); Bilirubin Total 1.6 mg/dL (0.2-1.3); Blood Urea Nitrogen 26 mg/dL (9-20); Calcium 8.4 mg/dL (8.4-10.2); Carbon Dioxide 28 mmol/L (22-32); Chloride 106 mmol/L (98-107); Estimated Glomerular Filt Rate > 60 mL/min (>60); Globulin 4.4 g/dL (1.7-4.1); Glucose 90 mg/dL (80-110); HEMOLYSIS < 15 (0-50); Potassium 3.9 mmol/L (3.4-5.1); Sodium 134 mmol/L (137-145); Total Protein 6.8 g/dL (6.3-8.2)
[2022-01-07] MEDS: METOPROLOL ER 25 MG TABLET 6.25 MG PO ×2 (09:02→21:47)
[2022-01-07] MEDS: RIVAROXABAN 10 MG TABLET 20 MG PO (09:02)
--- NOTE | 2022-01-07 09:02 | P.PN_ITS ---
Subjective Subjective Date Patient Seen: 01/07/22 Time Patient Seen: 09:02 Interval history: CC: weakness Not much to report still too weak to get out of bed I note some new purpuric lesions on extremities c/w drop in platelets will start steroids Exam Vital Signs (past 8 hours): - 01/07/22 04:00 01/07/22 07:50 Temperature 98.3 F 97.9 F Pulse Rate 85 83 Respiratory Rate 17 16 Blood Pressure 116/74 131/77 Pulse Oximetry 94 94 Oxygen Flow Rate 0 0 Oxygen Delivery Method Room Air Oxygen Flow Rate 0 Narrative Exam Narrative: laying in bed resting comfortably Const General: cooperative, comfortable and frail appearing Resp Other: regular rate GI Other: soft nontender nondistended normal bowel sounds Skin General: ecchymosis (R thigh L posterior bicep) Neuro General: patient alert, patient awake, patient oriented x3, moves all extremities, CN's II-XI intact bilaterally and deep tendon reflexes 2+ bilaterally Extrem General: full ROM and no pedal edema Psych Appearance: grossly normal and well kempt Mental Status: mental status grossly normal Objective Labs Result Diagrams: 01/07/22 09:20 01/07/22 06:17 Labs: Laboratory Results - last 24 hr 01/01/22 01/07/22 09:50 06:17 Smear Path Review Sodium 134 L Potassium 3.9 Chloride 106 Carbon Dioxide 28 BUN 26 H Creatinine 1.19 Estimated GFR > 60 BUN/Creatinine Ratio 21.8 Glucose 90 Calcium 8.4 Total Bilirubin 1.6 H AST 34 ALT 19 Alkaline Phosphatase 181 H Total Protein 6.8 Albumin 2.4 L Globulin 4.4 H Albumin/Globulin Ratio 0.5 L [facility] Medical History Atrial fibrillation Atrial flutter Barretts esophagus CHF (congestive heart failure) Chronic cough Degenerative arthritis GERD (gastroesophageal reflux disease) GI bleed History of cardioversion Iron deficiency anemia Spinal stenosis of lumbar region with neurogenic claudication Surgical History History of coronary angioplasty with insertion of stent Hx of cholecystectomy Hx of tonsillectomy Social History household members: spouse Smoking Status: Never smoker alcohol intake: never Assessment & Plan Assessment & Plan narrative: #Anemia, normocytic/normochromic, 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 Hemoglobin upon discharge was 8.8.? EGD showed gastric ulcers.? Was unable to complete colonoscopy secondary to extreme hypokalemia from prep.? Was discharged on Protonix and repeat colonoscopy was scheduled but never completed.? At time of GI bleed, patient was on dual anti- platelet therapy including Plavix and Xarelto secondary to angioplasty to LAD in August of 2020.? Patient also had iron deficiency anemia at that time and was started on ferrous sulfate.? Due to macroscopic hematuria, cardiology discontinued plavix after 10 months of therapy on 06/25/21. During this inpatient hospitalization, patient has had a symptomatic, normocytic/normochromic anemia, iron studies, Vitamin B12 and folate consistent with anemia of chronic disease but peripheral smear is abnormal and points to something more such as cancer due to presence of myelocytes, metamyelocytes, at ypical lymphocytes on peripheral smear.? Eosinophils were also elevated at 39%, absolute count 4100.? Patient does have hx of eosinophilic esophagitis.? Has had profound weakness and shortness of breath, no energy to even walk.? Hemoglobin/hematocrit upon admission was 8.3/25.3.? On the following day, H/H was 7.5/22.7, treated with PRBC x2 units.? Status post transfusion, H/H has been stable around 10.? Guaiac notably negative multiple times during stay.? Colonoscopy was not pursued secondary to age and hypokalemia upon admission.? Hypokalemia likely due to torsemide.? Patient was taken off of anticoagulation upon admission and started on Protonix.? Bone marrow biopsy completed yesterday by Dr. Aguilar. Pending biopsy results. H/H stable continue to trend labs. #Thrombocytopenia, acute New problem.? Platelets on 05/28/2020 were 267; on 09/26/2019, 191.? Platelets on admission were 53, then fell to 32, due to concern for active bleeding and sympomatic anemia, he was repleted with 2 units with follow-up values of 65, 53, 41, and 32 again on 01/02/22.? He was transfused another 2 units of platelets, labs the following morning showed 88, then 48? and back in the 30s today.? He has no petechiae or purpura.? He is afebrile.? He does have anemia as stated above and leukocytosis that is climbing despite antibiotic therapy.? Peripheral smear prior to PRBC transfusion revealed 1+ poikilocytosis, 2+ anisocytosis, and 2+ schistocytosis. Concern for DIC as platelets have continued to fall despite replacement; INR/PT (1.2/13.8), fibrinogen (435-->423 --> 423), and d-dimer (605 --> 723 --> 1485) are elevated or high normal.? 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 Dr. Aguilar consulting, awaiting bone marrow biopsy results.? Watching H/H closely, will hold off on platelet transfusion unless actively bleeding.? Continued platelet drop with some purpura raises suspicion for TTP starting prednisone 1mg/kg sending [id number] per Dr. Aguilar's curbside today. #Eosinophila Occurred during last admission 3 months ago, now present again, absolute count 4100.? Concern for malignancy vs lung issue. See above. ?#Leukocytosis with eosinophila, differential diagnosis includes infection such as aspiration pneumonia vs. leukemia Eosinophilia occured during last admission 3 months ago, now present again, absolute count 4100.? Trending labs, please see above. #Hypokalemia, likely secondary to loop diuretics Low potassium of 2.5 was repleted, now normalized and stable. Trend and replete as needed #Abnormal chest CT scan consistent with chronic interstitial lung disease and superimposed aspiration pneumonia Chest x-ray on admission showed bibasilar infiltrates, consolidation, and small bilateral pleural effusions concerning for pneumonia.? Follow-up CT scan showed an UIP pattern consistent with chronic, interstitial lung disease as well as a basilar predominance consolidation, increased from prior study suggestive of a possible aspiration pneumonia given the presence of esophageal fluid distension and a patulous appearing esophagus.? Patient did receive amiodorone for his atrial fibrillation 3 months ago, possibly contributing to the interstitial findings.? Patient was not treated with antibiotics during this hospital stay initially since he was afebrile.? However, he has had a white count throughout his stay as noted above and received 5 days of rocephin IV. No abx at present. #Persistent atrial fibrillation, rate controlled, chronic Recent echo on 10/11/2021 showed improvement of his ejection fraction to 55- 60%.? Right atrium noted again to be severely dilated.? Although BNP was not run during this hospital stay, he was given Lasix when antibiotics were initiated on hospital day 4.? He normally takes torsemide at home.? Home metoprolol dose was decreased during stay to 6.25 mg p.o. b.i.d. due to hypotension (101-113/51-59).? Xarelto was discontinued secondary to concern over bleeding and reinitiated at Dr. Aguilar's clearance. Continue metoprolol at reduced dose, watching blood pressure and heart rate closely.? Continue xarelto can d/c SCDs #Heart Failure with preserved ejection fraction. as above #Acute kidney injury, new resolved, trend labs. #Hyperlipidemia, chronic Continue home atorvastatin. #Weakness, profound, secondary to chronic and acute conditions Continue PT/OT try so see about mobilizing to chair at least today. Dispo: pending biopsy results, trending labs, may readdress transfer as he may require total plasma exchange at this rate. Code status:? DNR. GI prophylaxis:? PPI. DVT prophylaxis:? xarelto Covid:? negative Time Spent With Patient Critical Care time: I spent a total of [] minutes of critical care time on this patient's care today; this time is exclusive of procedural time. Quality VTE Deep Vein Thrombosis/Pulmonary Embolism Present on Admission: No
[2022-01-07] MEDS: ATORVASTATIN 20 MG TABLET 40 MG PO (09:03)
[2022-01-07 09:48] LABS: Hematocrit 26.7 % (41-53); Mean Corpuscular HGB Conc 33.7 % (30-36); Mean Corpuscular Hemoglobin 28.1 PG (26-34); Mean Corpuscular Volume 83.3 fL (80-100); Red Blood Cell Count 3.21 X10^6/uL (4.5-5.9); Red Cell Distribution Width 21.3 % (11.6-14.8); White Blood Cell Count 14.2 X10^3/uL (4.5-11.0)
[2022-01-07 10:14] LABS: Add Manual Diff / Slide Review YES; Platelet Count 22 X10^3/uL (150-400)
[2022-01-07 10:21] LABS: Neutrophils Absolute Manual 7526 /uL (3000-5900); Total Cells Counted 100
[2022-01-07 10:31] LABS: Anisocytosis 2+; Schistocytes 2+
[2022-01-07 10:32] LABS: Polychromasia 1+
[2022-01-07] MEDS: cefTRIAXone 1,000 MG in SODIUM CHLORIDE 0.9% 100 ML 200 MG IV (10:47)
--- NOTE | 2022-01-07 10:52 | PT.IPTN ---
Current Diagnoses Anemia, unspecified (12/28/21) Hypokalemia (12/28/21) Physical Therapy Treatment Note M2 PT-IP Current Condition Start: 12/31/21 13:34 Freq: NEEDED Status: Active Protocol: Document 12/31/21 11:25 AB (Rec: 12/31/21 13:44 AB [id number]) Physical Therapy Current Condition Current Condition Evaluation Date 12/31/21 Treatment Diagnosis anemia; difficulty in walking Onset Date 12/28/21 M3 PT-IP Subjective Start: 12/31/21 13:34 Freq: NEEDED Status: Active Protocol: Document 01/07/22 10:35 KS (Rec: 01/07/22 12:22 KS [id number]) Subjective Physical Therapy Visit Type Type Treatment Note Visit Start Time 10:35 Visit Stop Time 10:52 Total Visit Minutes 17 Notes BP 96/52 sitting, 80/50 following transfer, and 115/68 reclined in chair. Number of DRY CLEANING TEACHER Visits 3 Physical Therapy Visit Comments Patient Comments Pt wanting to get into chair. M4 PT-IP Mobility and Gait Start: 12/31/21 13:34 Freq: NEEDED Status: Active Protocol: Document 01/07/22 10:35 KS (Rec: 01/07/22 12:22 KS [id number]) PT-Bed Mobility Assessment Supine to Sit Supine to Sit Minimal Assistance,1 Person Assistance,Head of Bed Elevated,Bedrails Scooting Scooting to Edge of Bed Minimal Assistance PT-Transfer Assessment Sit to and From Stand Sit to and from Stand Moderate Assistance,1 Person Assistance,Use of Upper Extremities Equipment Transfer Assistive Device Gait Belt,Front Wheeled Walker Orthotic/Prosthetic Devices or Brace: No Transfers Transfer Destination Chair Transfer Technique Stand Step Pivot Transfer Ability Level of Assist Moderate Assistance,1 Person Assistance,2 Person Assistance ,Use of Upper Extremities Comments Mobility Comments Pt in bed upon arrival and agreeable to transfer to chair today. Min A w/ HOB inclined for sup<>Sit and scooting EOB. METAL MOULDER'S ASSISTANT arrived for assistance if needed. Pt Mod A for sit<> stand w/ FWW and Mod A x1-2 w/ max cues for stand step pivot from chair to bed w/ FWW. Pt w/ high level of fatigue following transfer and unable to complete further PT. Pt left in chair w/ all needs in reach. BP 96/52 sitting, 80/50 following transfer, and 115/ 68 reclined in chair. Gait Assessment Gait Gait Assistance Required: Moderate Assistance,1 Person Assist,2 Person Assist Distance (Feet) 3 Assistive Devices Assistive Device Gait Belt,Front Wheeled Walker Orthotic/Prosthetic Devices or Brace: No Gait Deviations General Gait Pattern Decreased Stride Length, Decreased Feet Clearance, Flexed Trunk,Step-to Gait Factors Limiting Gait Function Factors Limiting Gait Function Decreased Activity Tolerance, Decreased Strength,Difficulty Following Directions,Poor Balance,Poor Safety Awareness Comments Gait Comments Pt increased trunk flexion and bilateral knee flexion, L>R. Mod A x1-2, max cues. PT-Balance Assessment Sitting Balance and Reactions Static Sitting Balance Ability Good Dynamic Sitting Balance Ability Fair Standing Balance and Reactions Static Standing Balance Ability Fair Dynamic Standing Balance Ability Poor Device Used FWW M5 PT-IP Objective Assessments Start: 12/31/21 13:34 Freq: NEEDED Status: Active Protocol: Document 12/31/21 11:25 AB (Rec: 12/31/21 13:44 AB [id number]) Orientation Orientation/Cognition Level of Alertness Alert Orientation Name,Place,Situation Language Function Ability No Deficits Noted Safety Awareness Decreased Safety Awareness Memory Description No Deficits Noted Gross Range of Motion Lower Extremity ROM Assessment Within Functional Limits Strength Lower Extremity Strength Assessment Bilaterally Impaired Hip 4-/5 Knee 3+/5 Muscle Tone Muscle Tone WNL Yes M6 PT-IP Treatment Start: 12/31/21 13:34 Freq: NEEDED Status: Active Protocol: Document 01/07/22 10:35 KS (Rec: 01/07/22 12:22 KS [id number]) Physical Therapy Treatment Education Education Provided Safety M7 PT-IP Assessment and Plan Start: 12/31/21 13:34 Freq: NEEDED Status: Active Protocol: Document 01/07/22 10:35 KS (Rec: 01/07/22 12:22 KS [id number]) PT Summary Assessment and Plan Potential Rehabilitation Potential Fair Status of Condition at Evaluation Evolving Summary Impairments Pain,ROM,Strength,Balance, Coordination,Sensation,Tone, Cognition,Bed Mobility, Transfers,Gait,Activity Tolerance Progress Towards Goals Slow Progress due to Medical Issues,Slow Progress due to Activity Tolerance Assessment Summary Pt able to complete transfer todat from bed to chair w/ Mod A x1-2 w/ FWW. Pt very limited by weakness and high level of fatigue and has low BP w/ positional changes. BP 96/52 sitting, 80/50 following transfer, and 115/68 reclined in chair. At this time, pt too weak to return home and will require SNF to improve strength and functional mobility. Goals Bed Mobility Goal Independent Transfer Goal Standby Assistance,Front Wheeled Walker,Four Wheeled Walker Gait Goal Standby Assistance,Front Wheel Walker Gait Distance 100 Other Goals improve ambulation using 4WW ~ 200 ft SBA up/down 3 steps R rail ascending SBA Days to Meet Goals 10 Frequency of Treatment Frequency Of Treatment Once a Day Treatment Plan Physical Therapy Treatment Plan Bed Mobility Training,Transfer Training,Gait Training, Therapeutic Exercise,Balance Retraining,Discharge Planning, Hot or Cold Pack,Neuromuscular Re-ed,Coordination Retraining Recommendations To Nursing Amount of Assist Needed 1 Person Assist Discharge Recommendations PT Discharge Recommendations SNF Rehab Transportation Needs at Discharge Private Vehicle,Wheelchair/ Cabulance
--- NOTE | 2022-01-07 12:38 | OT.IPNOTE ---
Attempted to see pt for OT services. Pt just got to chair with P.T. and states too fatigued to do anything else. Will hold and continue to follow.
[2022-01-07 14:31] LABS: Factor VIII Antigen 139 % (.)
--- NOTE | 2022-01-07 15:54 | CM.DPC ---
DCP Cont: Monserrat at [facility] called back and stated, she can accept patient, but will need another P.T. note for Mauraa to auth. She is concerned about getting an auth on patient if he is limited on his P.T. ability. P.T. did work with patient, and sent over to [facility]. Dr. Pineda stopped by and let this community case manager know that he may consider transferring this patient out after all, platelets are now down to 22. He stated that the bone marrow results take a few weeks, per Dr. Aguilar in oncology. At this time, will keep referral at [facility], and will see if any beds become available as well. P: DCP to continue to follow. Plan is either [facility], or transfer out. Dr. Pineda indicated that patient most likely will not be medically ready for DC tomorrow, should he not be transferred to higher level hospital. Meenakshi Patterson RN/Garland Machine Operator
[2022-01-07 19:45] LABS: Lactate Dehydrogenase 1206 U/L (313-618)
[2022-01-07] MEDS: SODIUM CHLORIDE 0.9% FLUSH 10 ML IV (21:49)
[2022-01-08] VITALS (10 sets, daily range): BP systolic 98–135; BP diastolic 57–74; PULSE 72–91; RESP 12–17; TEMP 36.1–37.2; O2SAT 91–93
[2022-01-08 05:50] LABS: Hematocrit 26.1 % (41-53); Hemoglobin 8.7 g/dL (13.5-17.5); Mean Corpuscular HGB Conc 33.4 % (30-36); Mean Corpuscular Hemoglobin 27.9 PG (26-34); Mean Corpuscular Volume 83.4 fL (80-100); Red Blood Cell Count 3.13 X10^6/uL (4.5-5.9); Red Cell Distribution Width 21.2 % (11.6-14.8); White Blood Cell Count 14.1 X10^3/uL (4.5-11.0)
[2022-01-08 05:59] LABS: Add Manual Diff / Slide Review YES; Platelet Count 22 X10^3/uL (150-400)
[2022-01-08 06:37] LABS: Carbon Dioxide 26 mmol/L (22-32); Chloride 105 mmol/L (98-107); Potassium 3.9 mmol/L (3.4-5.1); Sodium 134 mmol/L (137-145)
[2022-01-08 06:38] LABS: Alanine Aminotransferase 19 IU/L (<50); Alkaline Phosphatase 171 U/L (38-126); Aspartate Aminotransferase 31 IU/L (17-59); BUN Creatinine Ratio 23.2 (6-22); Bilirubin Total 1.5 mg/dL (0.2-1.3); Blood Urea Nitrogen 32 mg/dL (9-20); Calcium 8.5 mg/dL (8.4-10.2); Estimated Glomerular Filt Rate 52 mL/min (>60); Glucose 89 mg/dL (80-110)
[2022-01-08 06:39] LABS: Albumin 2.4 g/dL (3.5-5.0); Albumin Globulin Ratio 0.5 (1.0-2.8); Globulin 4.6 g/dL (1.7-4.1); HEMOLYSIS < 15 (0-50)
[2022-01-08] MEDS: PANTOPRAZOLE DR 40 MG TABLET PO ×2 (06:52→21:55)
[2022-01-08 07:14] LABS: Neutrophils Absolute Manual 7473 /uL (3000-5900); Total Cells Counted 100
[2022-01-08 07:15] LABS: Anisocytosis 3+
[2022-01-08 07:16] LABS: Poikilocytosis 1+; Polychromasia 2+
[2022-01-08] MEDS: METOPROLOL ER 25 MG TABLET 6.25 MG PO ×2 (08:32→21:55)
[2022-01-08] MEDS: RIVAROXABAN 10 MG TABLET 20 MG PO (08:33)
[2022-01-08] MEDS: ATORVASTATIN 20 MG TABLET 40 MG PO (08:33)
[2022-01-08] MEDS: SODIUM CHLORIDE 0.9% FLUSH 10 ML IV ×2 (08:35→22:02)
--- NOTE | 2022-01-08 08:59 | CM.DPC ---
Addendum entered by Meenakshi Patterson R.N. 01/08/22 12:40: Dr. Pineda indicated that [facility] has declined patient. He indicated, patent has declined, platelets are the same at 22, but decrease in renal function. He is working on an alternate facility for patient. Had left a message with Monserrat at [facility] about patient being transferred. Original Note: DCP Cont: Spoke to Dr. Pineda. He stated, he has found a hospital that can accept patient, [facility], and he is working on transfer. Will update Monserrat at [facility]. P: DCP to continue to follow. Plan is for patient to be transferred, he has accepting physician, but need a bed. Meenakshi Patterson RN/Agricultural Adviser
--- NOTE | 2022-01-08 10:01 | P.DS_ITS ---
History of Present Illness History of Present Illness Date Patient Seen: 01/08/22 Time Patient Seen: 10:01 Chief complaint: SOB Narrative: Pt presented to ED with acute shortness of breath and dyspnea found to be hypokalemic and anemic admitted for repletion and further management. He has hx of gastric bleeds, PPI-responsive eosinophilic esophagitis, Mattehws's esophagus, lumbar spinal stenosis, and afib controlled with metoprolol and eliquis. at baseline he ambulates with cane and lives independently with . Today he feels ok but still profoundly weak. appetite is middling. moving bowels and urinating ok. able to sit in chair yesterday but that's about it. We discussed implications of negative bone marrow biopsy and positive [id number]. Glad to hear not bone cancer. No new purpura. Discharge Providers Provider Date of admission: 12/28/21 19:01 Discharge Date: 01/12/22 Primary care physician: Willy Pineda MD Consults: 12/30/21 14:45 Consult to Home Health Routine Comment: Reason For Exam: Evaluate and Treat- RN, PT,OT,Bath Aide 12/30/21 16:02 Consult to Occupational Therapy Evaluate & Treat Comment: Physician Instructions: Evaluate and treat Consult to Physical Therapy Evaluate & Treat Comment: Physician Instructions: Evaluate and Treat 01/04/22 10:22 Consult to Oncology Routine Comment: Consulting Provider: Pillo Aguilar Reason for consultation: suspected DIC, schistocytosis with anemia and thrombocytopenia leukocytosis Has provider been notified: Yes Discharge provider: Willy Pineda MD Summary Hospital Course Discharge Diagnosis: acute thrombocytopenia 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 However, subsequently pt was found to be acutely anemic with severe thrombocytopenia as well as eosinophilic leukocytosis and schistocytes on blood smear. He received transfusions of PRBCs and platelets and anticoagulation was held but no source of bleeding was apparent. After transfusion, both Hgb and platelets improved but continued to slowly decline subsequently. His metoprolol dose was reduced due to some hypotension but BP remained stable through the rest of the admission. The leukocytosis remained persistent despite treatment with IV abx. Given three affected cell lines, we consulted our local receiving room clerk-oncologist Dr. Aguilar who performed bone marrow biopsy and advised restarting anticoagulation and treating the thrombocytopenia with high dose steroids which we did. Concern for TTP with elevated LDH low haptoglobin and some decline in kidney function led to exploration of transfer to higher level of care in case factor or total plasma exchange became necessary, neither of which are available at our facility. This concern was only elevated by persistently low platelets in the 20s despite high dose steroids, as well as a generally normal bone marrow biopsy and grossly positive [id number] test. Today his Hgb was back down to 7.1 so 1 more units of PRBCs was transfused. He remains too weak to get out of bed and PT has refused to evaluate him given his thrombocytopenia. Status at Discharge Cognitive/behavioral status at discharge: oriented and at baseline, oriented Functional status at discharge: wheelchair bound Overall status at discharge: patient is not back to baseline Exam Vital Signs (past 8 hours): - 01/08/22 05:45 01/08/22 07:30 01/08/22 08:10 Temperature 98.9 F 98.7 F Pulse Rate 91 H 81 Respiratory Rate 12 14 Blood Pressure 110/65 98/57 L Pulse Oximetry 91 92 Oxygen Delivery Method Nasal Cannula Oxygen Flow Rate 0 2 01/08/22 08:10 01/08/22 08:32 01/08/22 09:54 Temperature Pulse Rate 91 H 85 Respiratory Rate Blood Pressure Pulse Oximetry 92 Oxygen Delivery Method Nasal Cannula Oxygen Flow Rate 2 Oxygen Delivery Method Nasal Cannula Oxygen Flow Rate 2 Narrative Exam Narrative: alert sitting in bed talking to on phone Const General: cooperative, comfortable, frail appearing and ill appearing [facility] Head: normal to inspection and normocephalic Eyes General: appearance normal, both eyes and all related structures Resp Auscultation: clear to auscultation bilaterally Cardio Other: regular rate irregular rhythm GI Other: soft nontender nondistended normal bowel sounds Neuro General: patient alert, patient awake, patient oriented x3, moves all extremiti es, CN's II-XI intact bilaterally and deep tendon reflexes 2+ bilaterally Extrem General: full ROM Other: ecchymoses at phlebotomy sites in LUE stable, no new bruising, no petechiae noted Psych Appearance: grossly normal Mental Status: mental status grossly normal Objective Labs Result Diagrams: 01/12/22 06:20 01/12/22 06:20 Labs: Laboratory Results - last 24 hr 01/02/22 01/02/22 01/07/22 18:50 18:50 09:20 WBC 14.2 H RBC 3.21 L Hgb 9.0 L Hct 26.7 L MCV 83.3 MCH 28.1 MCHC 33.7 RDW 21.3 H Plt Count 22 L* Neut % (Auto) Not Reportable Lymph % (Auto) Not Reportable [place] % (Auto) Not Reportable Eos % (Auto) Not Reportable Baso % (Auto) Not Reportable Lymph # (Auto) Not Reportable [place] # (Auto) Not Reportable Baso # (Auto) Not Reportable Total Counted 100 Seg Neutrophils % 48.0 Band Neutrophils % 5.0 Lymphocytes % (Manual) 6.0 L Monocytes % (Manual) 4.0 Eosinophils % (Manual) 34.0 H Basophils % (Manual) Metamyelocytes % 1.0 H Myelocytes % 2.0 H Neutrophils # (Manual) 7526 H RBC Morphology See below Polychromasia 1+ H Poikilocytosis Anisocytosis 2+ H Schistocytes 2+ H Factor V Leiden Interp Comment Factor VIII Antigen 139 Sodium Potassium Chloride Carbon Dioxide BUN Creatinine Estimated GFR BUN/Creatinine Ratio Glucose Calcium Total Bilirubin AST ALT Alkaline Phosphatase Lactate Dehydrogenase Total Protein Albumin Globulin Albumin/Globulin Ratio 01/07/22 01/08/22 01/08/22 19:24 05:10 05:10 WBC 14.1 H RBC 3.13 L Hgb 8.7 L Hct 26.1 L MCV 83.4 MCH 27.9 MCHC 33.4 RDW 21.2 H Plt Count 22 L* Neut % (Auto) Not Reportable Lymph % (Auto) Not Reportable Troup % (Auto) Not Reportable Eos % (Auto) Not Reportable Baso % (Auto) Not Reportable Lymph # (Auto) Not Reportable Troup # (Auto) Not Reportable Baso # (Auto) Not Reportable Total Counted 100 Seg Neutrophils % 52.0 Band Neutrophils % 1.0 L Lymphocytes % (Manual) 11.0 L Monocytes % (Manual) 1.0 L Eosinophils % (Manual) 32.0 H Basophils % (Manual) 2.0 H Metamyelocytes % 1.0 H Myelocytes % Neutrophils # (Manual) 7473 H RBC Morphology See below Polychromasia 2+ H Poikilocytosis 1+ H Anisocytosis 3+ H Schistocytes Factor V Leiden Interp Factor VIII Antigen Sodium 134 L Potassium 3.9 Chloride 105 Carbon Dioxide 26 BUN 32 H Creatinine 1.38 H Estimated GFR 52 L BUN/Creatinine Ratio 23.2 H Glucose 89 Calcium 8.5 Total Bilirubin 1.5 H AST 31 ALT 19 Alkaline Phosphatase 171 H Lactate Dehydrogenase 1206 H D Total Protein 7.0 Albumin 2.4 L Globulin 4.6 H Albumin/Globulin Ratio 0.5 L PFSH Medical History Atrial fibrillation Atrial flutter Barretts esophagus CHF (congestive heart failure) Chronic cough Degenerative arthritis GERD (gastroesophageal reflux disease) GI bleed History of cardioversion Iron deficiency anemia Spinal stenosis of lumbar region with neurogenic claudication Surgical History History of coronary angioplasty with insertion of stent Hx of cholecystectomy Hx of tonsillectomy Social History household members: spouse Smoking Status: Never smoker alcohol intake: never Discharge Assessment & Plan Assessment and Plan Assessment: #Anemia, normocytic/normochromic, 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 Hemoglobin upon discharge was 8.8.? EGD showed gastric ulcers.? Was unable to complete colonoscopy secondary to extreme hypokalemia from prep.? Was discharged on Protonix and repeat colonoscopy was scheduled but never completed.? At time of GI bleed, patient was on dual anti-platelet therapy including Plavix and Xarelto secondary to angioplasty to LAD in August of 2020.? Patient also had iron deficiency anemia at that time and was started on ferrous sulfate.? Due to macroscopic hematuria, cardiology discontinued plavix after 10 months of therapy on 06/25/21 he has continued on eliquis alone since then. During THIS INPATIENT HOSPITALIZATION, patient has had a symptomatic, normocy tic/normochromic anemia, iron studies, Vitamin B12 and folate consistent with anemia of chronic disease but peripheral smear is abnormal and points to something more such as cancer due to presence of myelocytes, metamyelocytes, atypical lymphocytes on peripheral smear.? Eosinophils were also elevated at 39%, absolute count 4100.? Patient does have hx of eosinophilic esophagitis.? Has had profound weakness and shortness of breath, no energy to even walk.? Hemoglobin/hematocrit upon admission was 8.3/25.3.? On the following day, H/H was 7.5/22.7, treated with PRBC x2 units.? Status post transfusion, H/H was initially stable around 10.? Guaiac notably negative multiple times during stay.? Colonoscopy was not pursued secondary to age and hypokalemia upon admission which resolved. Patient was taken off of anticoagulation upon admission due to concern for possible active bleed and started on Protonix.? Bone marrow biopsy completed 01/03/[address] Aguilar with eventually mostly normal findings showing adequate hematopoeisis. Anticoagulation resumed on that date however a slow decline in Hgb eventuated culminating in a bereket of 7.1 Hgb today which we will replete with 1U prior to transfer. #Thrombocytopenia, acute #TTP New problem.? Platelets on 05/28/2020 were 267; on 09/26/2019, 191.? Platelets on admission December 28 were 53, then fell to 32, due to concern for active bleeding and symptomatic anemia, he was repleted with 2 units with follow-up values of 65, 53, 41, and 32 again on 01/02/22.? He was transfused another 2 units of platelets, labs the following morning showed 88, then 48?then back to the 20s, when high dose steroids (prednisone 1mg/kg) was started - and in the 20s they remain until today. He has no petechiae but there are some concerning ecchymoses.? He is afebrile.? He does have anemia as stated above and leukocytosis unresponsive to antibiotic therapy.? Peripheral smear prior to PRBC transfusion revealed 1+ poikilocytosis, 2+ anisocytosis, and 2+ schistocytosis. The schistocytosis has been persistent throughout the admission. Clinical suspicion for DIC or TTP has mounted as platelets have continued to fall despite replacement; INR/PT, fibrinogen, and He is neurologically intact however his kidney function is showing signs of issues. Bone marrow biopsy result is reassuring with all three cell lines in full production, however [id number] activity is quite low with high antibody levels strongly suggesting TTP.? He has been on high dose steroids for almost a week no with zero platelet improvement, suspect he may require total plasma exchange which is not available here. #Leukocytosis with eosinophila, differential diagnosis includes infection such as aspiration pneumonia vs. leukemia Eosinophilia occured during last admission 3 months ago, now present again s/p 5 days of IV rocephin without any change, discontinued Trending labs, please see above. New neutrophilic predominance noted but does not appear to be infected suspect response to TTP. #Hypokalemia Low potassium of 2.5 was repleted, now normalized and stable. Trend and replete monitor avoid loop diuretics #Abnormal chest CT scan consistent with chronic interstitial lung disease and superimposed aspiration pneumonia Chest x-ray on admission showed bibasilar infiltrates, consolidation, and small bilateral pleural effusions concerning for pneumonia.? Follow-up CT scan showed an UIP pattern consistent with chronic, interstitial lung disease as well as a basilar predominance consolidation, increased from prior study suggestive of a possible aspiration pneumonia given the presence of esophageal fluid distension and a patulous appearing esophagus.? Patient did receive amiodorone for his atrial fibrillation 3 months ago, possibly contributing to the interstitial findings.? Patient was not treated with antibiotics during this hospital stay initially since he was afebrile.? However, he has had a white count throughout his stay as noted above and received 5 days of rocephin IV. No abx at present, O2 stable on RA. monitor. #Persistent atrial fibrillation, rate controlled, chronic Recent echo on 10/11/2021 showed improvement of his ejection fraction to 55- 60%.? Right atrium noted again to be severely dilated.? Home metoprolol dose was decreased during stay to 6.25 mg p.o. b.i.d. due to hypotension (101-113/51-59).? Xarelto was discontinued secondary to initial concern over active bleeding and reinitiated when there did not appear to be any. Continue metoprolol at reduced dose, watching blood pressure and heart rate closely.? Continue xarelto can d/c SCDs #Heart Failure with improved ejection fraction. as above #Acute kidney injury, new Cr has fluctuated throughout stay with some transient increases I suspect are connected to ongoing TTP process trend and f/u xferring to higher level of care #Hyperlipidemia, chronic #hx of CAD s/p stent Continue home atorvastatin. #Weakness, profound, secondary to chronic and acute conditions able to mobilize to sit in chair with max assist continue to work on leg strengthening Dispo:Transfer to [facility] accepting physician Dr. Juanito Vale Code status:? DNR MDM: Tory [phone] Son Lewis [phone] GI prophylaxis:? PPI. DVT prophylaxis:? xarelto Covid:? negative time spent on this discharge: 45 min Discharge Plan Discharge Plan Patient Disposition: [facility] Other facility: [facility] Under care of provider: juanito vale Provider Discharge Comment: Consulting Heme/Onc, Dr. Aguilar Discharge Health Status Precautions: [place] Diet/Activity/Treatments Diet: Diet as Tolerated Activity: 4 WW with 1 person assist Discharge Data Primary Care Provider: Willy Pineda VTE Deep Vein Thrombosis/Pulmonary Embolism Present on Admission: No
--- NOTE | 2022-01-08 12:39 | PT-IP ANOTE ---
Pt preferring to rest today due to increased fatigue and pending transfer. Encourage pt to perform exercises in bed that are written on his white board if feeling up to it.
--- NOTE | 2022-01-08 13:23 | OT.IPNOTE ---
Pt states very tired today. Therefore assisted pt positioning in bed with a pillow for his head and right arm and able to clean off his glasses and magnifying glass. NO charge.
[2022-01-08] MEDS: predniSONE 20 MG TABLET 70 MG PO (15:36)
--- NOTE | 2022-01-08 17:10 | P.PN_ITS ---
Subjective Subjective Date Patient Seen: 01/08/22 Time Patient Seen: 08:30 Interval history: Pt presented to ED with acute shortness of breath and dyspnea found to be hypokalemic and anemic admitted for repletion and further management. He has hx of gastric bleeds, PPI-responsive eosinophilic esophagitis, Matthews's esophagus, lumbar spinal stenosis, and afib controlled with eliquis and mild systolic CHF. at baseline he ambulates with cane and lives independently with . Today he feels ok but still profoundly weak. appetite is middling.? moving bowels and urinating ok. able to get to chair yesterday. I spoke with and son and explained transfer plan. Exam Vital Signs (past 8 hours): - 01/08/22 09:54 01/08/22 13:00 01/08/22 15:49 Temperature 97.1 F L 97.3 F L Pulse Rate 85 80 78 Respiratory Rate 16 16 Blood Pressure 106/61 119/67 Pulse Oximetry 92 92 Oxygen Flow Rate 0 0 Oxygen Delivery Method Nasal Cannula Oxygen Flow Rate 0 Narrative Exam Narrative: Narrative Exam Narrative: alert sitting in bed talking to on phone Const General: cooperative, comfortable, frail appearing and ill appearing [facility] Head: normal to inspection and normocephalic Eyes General: appearance normal, both eyes and all related structures Resp Auscultation: clear to auscultation bilaterally Cardio Other: regular rate irregular rhythm GI Other: soft nontender nondistended normal bowel sounds Neuro General: patient alert, patient awake, patient oriented x3, moves all extremities, CN's II-XI intact bilaterally and deep tendon reflexes 2+ bilaterally Extrem General: full ROM Other: ecchymoses on R thigh and L forearm at IV site stable approx 5cm each no petec hiae noted Psych Appearance: grossly normal Mental Status: mental status grossly normal Objective Labs Result Diagrams: 01/08/22 05:10 01/08/22 05:10 Labs: Laboratory Results - last 24 hr 01/07/22 01/08/22 01/08/22 19:24 05:10 05:10 WBC 14.1 H RBC 3.13 L Hgb 8.7 L Hct 26.1 L MCV 83.4 MCH 27.9 MCHC 33.4 RDW 21.2 H Plt Count 22 L* Neut % (Auto) Not Reportable Lymph % (Auto) Not Reportable [place] % (Auto) Not Reportable Eos % (Auto) Not Reportable Baso % (Auto) Not Reportable Lymph # (Auto) Not Reportable [place] # (Auto) Not Reportable Baso # (Auto) Not Reportable Total Counted 100 Seg Neutrophils % 52.0 Band Neutrophils % 1.0 L Lymphocytes % (Manual) 11.0 L Monocytes % (Manual) 1.0 L Eosinophils % (Manual) 32.0 H Basophils % (Manual) 2.0 H Metamyelocytes % 1.0 H Neutrophils # (Manual) 7473 H RBC Morphology See below Polychromasia 2+ H Poikilocytosis 1+ H Anisocytosis 3+ H Sodium 134 L Potassium 3.9 Chloride 105 Carbon Dioxide 26 BUN 32 H Creatinine 1.38 H Estimated GFR 52 L BUN/Creatinine Ratio 23.2 H Glucose 89 Calcium 8.5 Total Bilirubin 1.5 H AST 31 ALT 19 Alkaline Phosphatase 171 H Lactate Dehydrogenase 1206 H D Total Protein 7.0 Albumin 2.4 L Globulin 4.6 H Albumin/Globulin Ratio 0.5 L PFSH Medical History Atrial fibrillation Atrial flutter Barretts esophagus CHF (congestive heart failure) Chronic cough Degenerative arthritis GERD (gastroesophageal reflux disease) GI bleed History of cardioversion Iron deficiency anemia Spinal stenosis of lumbar region with neurogenic claudication Surgical History History of coronary angioplasty with insertion of stent Hx of cholecystectomy Hx of tonsillectomy Social History household members: spouse Smoking Status: Never smoker alcohol intake: never Assessment & Plan Assessment & Plan narrative: #Anemia, normocytic/normochromic, 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 Hemoglobin upon discharge was 8.8.? EGD showed gastric ulcers.? Was unable to complete colonoscopy secondary to extreme hypokalemia from prep.? Was discharged on Protonix and repeat colonoscopy was scheduled but never completed.? At time of GI bleed, patient was on dual anti- platelet therapy including Plavix and Xarelto secondary to angioplasty to LAD in August of 2020.? Patient also had iron deficiency anemia at that time and was started on ferrous sulfate.? Due to macroscopic hematuria, cardiology d iscontinued plavix after 10 months of therapy on 06/25/21 he has continued on eliquis alone since then. During this inpatient hospitalization, patient has had a symptomatic, normocytic/normochromic anemia, iron studies, Vitamin B12 and folate consistent with anemia of chronic disease but peripheral smear is abnormal and points to something more such as cancer due to presence of myelocytes, metamyelocytes, atypical lymphocytes on peripheral smear.? Eosinophils were also elevated at 39%, absolute count 4100.? Patient does have hx of eosinophilic esophagitis.? Has had profound weakness and shortness of breath, no energy to even walk even after PRBCs.? Hemoglobin/hematocrit upon admission was 8.3/25.3.? On the following day, H/H was 7.5/22.7, treated with PRBC x2 units.? Status post transfusion, H/H has been stable around 10.? Guaiac notably negative multiple times during stay.? Colonoscopy was not pursued secondary to age and hypokalemia upon admission which has resolved. Patient was taken off of anticoagulation upon admission and started on Protonix.? Bone marrow biopsy completed 01/03/[address] Aguilar results pending. Anticoagulation resumed on that date with continued stable hemoglobin. Pending biopsy results. H/H stable continue to trend labs. #Thrombocytopenia, acute New problem.? Platelets on 05/28/2020 were 267; on 09/26/2019, 191.? Platelets on admission were 53, then fell to 32, due to concern for active bleeding and symptomatic anemia, he was repleted with 2 units with follow-up values of 65, 53, 41, and 32 again on 01/02/22.? He was transfused another 2 units of p latelets, labs the following morning showed 88, then 48?then22 yesterday. He has no petechiae but there are some spreading ecchymoses.? He is afebrile.? He does have anemia as stated above and leukocytosis unresponsive to antibiotic therapy.? Peripheral smear prior to PRBC transfusion revealed 1+ poikilocytosis, 2+ anisocytosis, and 2+ schistocytosis. Concern for DIC or TTP as platelets have continued to fall despite replacement; INR/PT, fibrinogen, and d-dimer are elevated or high normal.? 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 We initiated high dose oral prednisone 1mg/kg yesterday and his platelets remain at 22 this morning. He is neurologically intact however his kidney function is beginning to show signs of new decline. Dr. Aguilar consulting, awaiting bone marrow biopsy results and [id number] activity.? Hold off on platelet transfusion unless actively bleeding, on high dose steroids 1mg/kg.? #Leukocytosis with eosinophila, differential diagnosis includes infection such as aspiration pneumonia vs. leukemia Eosinophilia occured during last admission 3 months ago, now present again, absolute count 4100.? s/p 5 days of IV rocephin without any change, discontinued Trending labs, please see above. #Hypokalemia Low potassium of 2.5 was repleted, now normalized and stable. Trend and replete monitor avoid loop diuretics #Abnormal chest CT scan consistent with chronic interstitial lung disease and superimposed aspiration pneumonia Chest x-ray on admission showed bibasilar infiltrates, consolidation, and small bilateral pleural effusions concerning for pneumonia.? Follow-up CT scan showed an UIP pattern consistent with chronic, interstitial lung disease as well as a basilar predominance consolidation, increased from prior study suggestive of a possible aspiration pneumonia given the presence of esophageal fluid distension and a patulous appearing esophagus.? Patient did receive amiodorone for his atrial fibrillation 3 months ago, possibly contributing to the interstitial findings.? Patient was not treated with antibiotics during this hospital stay initially since he was afebrile.? However, he has had a white count throughout his stay as noted above and received 5 days of rocephin IV. No abx at present. monitor. #Persistent atrial fibrillation, rate controlled, chronic Recent echo on 10/11/2021 showed improvement of his ejection fraction to 55- 60%.? Right atrium noted again to be severely dilated.? Home metoprolol dose was decreased during stay to 6.25 mg p.o. b.i.d. due to hypotension (101-113/51-59).? Xarelto was discontinued secondary to initial concern over active bleeding and reinitiated when there did not appear to be any. Continue metoprolol at reduced dose, watching blood pressure and heart rate closely.? Continue xarelto can d/c SCDs #Heart Failure with improved ejection fraction. as above #Acute kidney injury, new initially resolved however I note creatinine bump this morning which may represent TTP trend and f/u try to transfer #Hyperlipidemia, chronic #hx of CAD s/p stent Continue home atorvastatin. #Weakness, profound, secondary to chronic and acute conditions Continue PT/OT able to mobilize to sit in chair with max assist Dispo: thrombocytopenia extremely concerning for TTP, exploring transfer to higher level of care options Code status:? DNR MDM: Tory [phone]? Son Lewis [phone] GI prophylaxis:? PPI. DVT prophylaxis:? xarelto Covid:? negative Time Spent With Patient Critical Care time: I spent a total of [] minutes of critical care time on this patient's care today; this time is exclusive of procedural time. Quality VTE Deep Vein Thrombosis/Pulmonary Embolism Present on Admission: No
[2022-01-09] VITALS (9 sets, daily range): BP systolic 104–123; BP diastolic 52–67; PULSE 64–70; RESP 14–16; TEMP 36.3–36.7; O2SAT 92–97
[2022-01-09 06:06] LABS: Basophils Absolute Auto 100 /uL (0-100); Basophils Percent Auto 0.7 % (0-2); Eosinophils Absolute Auto 100 /uL (0-450); Hemoglobin 8.5 g/dL (13.5-17.5); Lymphocytes Absolute Auto 1300 /uL (1100-4500); Lymphocytes Percent Auto 16.6 % (25-40); Mean Corpuscular Hemoglobin 28.6 PG (26-34); Mean Corpuscular Volume 84.1 fL (80-100); Monocytes Absolute Auto 300 /uL (0-900); Monocytes Percent Auto 3.6 % (3-14); Neutrophils Absolute Auto 6300 /uL (1500-7000); Neutrophils Percent Auto 78.1 % (50-75); Red Blood Cell Count 2.98 X10^6/uL (4.5-5.9); Red Cell Distribution Width 21.6 % (11.6-14.8)
[2022-01-09 06:09] LABS: Add Manual Diff / Slide Review SLIDE REVIEW; Platelet Count 24 X10^3/uL (150-400)
[2022-01-09 06:11] LABS: Alanine Aminotransferase 20 IU/L (<50); Albumin 2.6 g/dL (3.5-5.0); Albumin Globulin Ratio 0.6 (1.0-2.8); Alkaline Phosphatase 177 U/L (38-126); Aspartate Aminotransferase 31 IU/L (17-59); BUN Creatinine Ratio 29.5 (6-22); Bilirubin Total 1.3 mg/dL (0.2-1.3); Blood Urea Nitrogen 44 mg/dL (9-20); Calcium 8.7 mg/dL (8.4-10.2); Carbon Dioxide 24 mmol/L (22-32); Chloride 106 mmol/L (98-107); Estimated Glomerular Filt Rate 47 mL/min (>60); Globulin 4.7 g/dL (1.7-4.1); Glucose 142 mg/dL (80-110); HEMOLYSIS < 15 (0-50); Potassium 4.4 mmol/L (3.4-5.1); Sodium 135 mmol/L (137-145); Total Protein 7.3 g/dL (6.3-8.2)
[2022-01-09] MEDS: PANTOPRAZOLE DR 40 MG TABLET PO ×2 (06:41→21:11)
[2022-01-09 07:33] LABS: Anisocytosis 2+; Platelet Estimate Decreased on smear; Poikilocytosis 1+
--- NOTE | 2022-01-09 09:37 | PT.IPTN ---
Current Diagnoses Anemia, unspecified (12/28/21) Thrombocytopenia, unspecified (12/28/21) Physical Therapy Treatment Note M2 PT-IP Current Condition Start: 12/31/21 13:34 Freq: NEEDED Status: Active Protocol: Document 12/31/21 11:25 AB (Rec: 12/31/21 13:44 AB [id number]) Physical Therapy Current Condition Current Condition Evaluation Date 12/31/21 Treatment Diagnosis anemia; difficulty in walking Onset Date 12/28/21 M3 PT-IP Subjective Start: 12/31/21 13:34 Freq: NEEDED Status: Active Protocol: Document 01/09/22 09:25 KS (Rec: 01/09/22 09:41 KS [id number]) Subjective Physical Therapy Visit Type Type Treatment Note Visit Start Time 09:25 Visit Stop Time 09:37 Total Visit Minutes 12 Number of KILN HAND Visits 4 Physical Therapy Visit Comments Patient Comments Pt agreeable to exercises in bed. M4 PT-IP Mobility and Gait Start: 12/31/21 13:34 Freq: NEEDED Status: Active Protocol: Document 01/09/22 09:25 KS (Rec: 01/09/22 09:41 KS [id number]) PT-Transfer Assessment Comments Mobility Comments Pt able to complete BLE exercises in bed w/ improved tolerance today. Completed 2x10 bilateral ankle pumps, quad sets, gute sets, heel slides, and SLR. Pt w/ improved ability to perform knee extension also. Pt left in bed w/ all needs in reach. M5 PT-IP Objective Assessments Start: 12/31/21 13:34 Freq: NEEDED Status: Active Protocol: Document 12/31/21 11:25 AB (Rec: 12/31/21 13:44 AB [id number]) Orientation Orientation/Cognition Level of Alertness Alert Orientation Name,Place,Situation Language Function Ability No Deficits Noted Safety Awareness Decreased Safety Awareness Memory Description No Deficits Noted Gross Range of Motion Lower Extremity ROM Assessment Within Functional Limits Strength Lower Extremity Strength Assessment Bilaterally Impaired Hip 4-/5 Knee 3+/5 Muscle Tone Muscle Tone WNL Yes M6 PT-IP Treatment Start: 12/31/21 13:34 Freq: NEEDED Status: Active Protocol: Document 01/09/22 09:25 KS (Rec: 01/09/22 09:41 KS [id number]) Physical Therapy Treatment Exercises Exercises Ankle Pumps,Gluteal Sets,Quad Sets,Heel Slides,Straight Leg Raises Education Education Provided Safety M7 PT-IP Assessment and Plan Start: 12/31/21 13:34 Freq: NEEDED Status: Active Protocol: Document 01/09/22 09:25 KS (Rec: 01/09/22 09:41 KS [id number]) PT Summary Assessment and Plan Potential Rehabilitation Potential Fair Status of Condition at Evaluation Evolving Summary Impairments Pain,ROM,Strength,Balance, Coordination,Sensation,Tone, Cognition,Bed Mobility, Transfers,Gait,Activity Tolerance Progress Towards Goals Slow Progress due to Medical Issues,Slow Progress due to Activity Tolerance Assessment Summary Pt limited by medical issues and weakness, but able to perform BLE exercises to promote blood flow and strengthening w/ increased tolerance today. Pt too weak to return home and will need SNF to improve functional mobility, strength, and activity tolerance. Goals Bed Mobility Goal Independent Transfer Goal Standby Assistance,Front Wheeled Walker,Four Wheeled Walker Gait Goal Standby Assistance,Front Wheel Walker Gait Distance 100 Other Goals improve ambulation using 4WW ~ 200 ft SBA up/down 3 steps R rail ascending SBA Days to Meet Goals 10 Frequency of Treatment Frequency Of Treatment Once a Day Treatment Plan Physical Therapy Treatment Plan Bed Mobility Training,Transfer Training,Gait Training, Therapeutic Exercise,Balance Retraining,Discharge Planning, Hot or Cold Pack,Neuromuscular Re-ed,Coordination Retraining Recommendations To Nursing Amount of Assist Needed 1 Person Assist Discharge Recommendations PT Discharge Recommendations SNF Rehab Transportation Needs at Discharge Private Vehicle,Wheelchair/ Cabulance
[2022-01-09] MEDS: predniSONE 20 MG TABLET 70 MG PO (09:52)
[2022-01-09] MEDS: METOPROLOL ER 25 MG TABLET 6.25 MG PO ×2 (09:53→21:11)
[2022-01-09] MEDS: RIVAROXABAN 10 MG TABLET 15 MG PO (09:57)
[2022-01-09] MEDS: ATORVASTATIN 20 MG TABLET 40 MG PO (09:58)
[2022-01-09] MEDS: SODIUM CHLORIDE 0.9% FLUSH 10 ML IV ×2 (09:58→21:11)
--- NOTE | 2022-01-09 11:25 | P.PN_ITS ---
Subjective Subjective Date Patient Seen: 01/09/22 Time Patient Seen: 09:50 Interval history: The pt denies any specific complaints this morning. He continues to feel slightly weak. His appetite is stable, but still minimal. He denies any recent chest pain, SOB, LE edema, abdominal pain. Exam Vital Signs (past 8 hours): - 01/09/22 09:28 01/09/22 07:00 01/09/22 09:53 Temperature 97.5 F L Pulse Rate 66 66 Respiratory Rate 14 Blood Pressure 115/67 115/67 Pulse Oximetry 92 96 Oxygen Delivery Method Room Air Oxygen Flow Rate 0 01/09/22 09:53 01/09/22 09:53 Temperature Pulse Rate Respiratory Rate Blood Pressure Pulse Oximetry 92 Oxygen Delivery Method Room Air Room Air Oxygen Flow Rate Oxygen Delivery Method Room Air Oxygen Flow Rate 0 Narrative Exam Narrative: Gen: NAD, sitting comfortably in bed, appears stated age CV: RRR, grade 3/6 systolic murmur Resp: clear to auscultation bilaterallyb Abd: soft, nontender, nondistended Ext: no edema Objective Labs Result Diagrams: 01/09/22 05:50 01/09/22 05:50 Labs: Laboratory Results - last 24 hr 01/09/22 01/09/22 05:50 05:50 WBC 8.0 RBC 2.98 L Hgb 8.5 L Hct 25.0 L MCV 84.1 MCH 28.6 MCHC 34.0 RDW 21.6 H Plt Count 24 L* Neut % (Auto) 78.1 H Lymph % (Auto) 16.6 L [place] % (Auto) 3.6 Eos % (Auto) 1.0 L Baso % (Auto) 0.7 Neut # (Auto) 6300 Lymph # (Auto) 1300 [place] # (Auto) 300 Eos # (Auto) 100 Baso # (Auto) 100 Platelet Estimate Decreased on smear RBC Morphology Not Reportable Poikilocytosis 1+ H Anisocytosis 2+ H Sodium 135 L Potassium 4.4 Chloride 106 Carbon Dioxide 24 BUN 44 H Creatinine 1.49 H Estimated GFR 47 L BUN/Creatinine Ratio 29.5 H Glucose 142 H Calcium 8.7 Total Bilirubin 1.3 AST 31 ALT 20 Alkaline Phosphatase 177 H Total Protein 7.3 Albumin 2.6 L Globulin 4.7 H Albumin/Globulin Ratio 0.6 L [facility] Medical History Atrial fibrillation Atrial flutter Barretts esophagus CHF (congestive heart failure) Chronic cough Degenerative arthritis GERD (gastroesophageal reflux disease) GI bleed History of cardioversion Iron deficiency anemia Spinal stenosis of lumbar region with neurogenic claudication Surgical History History of coronary angioplasty with insertion of stent Hx of cholecystectomy Hx of tonsillectomy Social History household members: spouse Smoking Status: Never smoker alcohol intake: never Assessment & Plan Assessment & Plan narrative: 1) Anemia, normocytic/normochromic, 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 Iron studies, Vitamin B12 and folate consistent with anemia of chronic disease but peripheral smear is abnormal with myelocytes, metamyelocytes, atypical lymphocytes on peripheral smear.? Eosinophils were also elevated at 39%, absolute count 4100.? Concerning for more malignant etiology. Patient does have hx of eosinophilic esophagitis.? s/p 2 units PRBCs. H/H very gradually drifting down since. Guaiac notably negative multiple times during stay.? Colonoscopy was not pursued secondary to age and hypokalemia upon admission which has resolved. Patient was taken off of anticoagulation upon admission and started on Protonix.? Bone marrow biopsy completed 01/03/[address] Aguilar results pending. Anticoagulation resumed on that date with continued stable hemoglobin. - F/U biopsy results - Continue to trend H/H 2) Thrombocytopenia, acute: New problem.? Platelets on 05/28/2020 were 267; on 09/26/2019, 191.? Platelets on admission were 53, then fell to 32, due to concern for active bleeding and symptomatic anemia, he was repleted with 2 units with follow-up values of 65, 53, 41, and 32 again on 01/02/22.? He was esteves sfused another 2 units of platelets, labs the following morning showed 88, then 48, 22 yesterday, 24 today. He has no petechiae and ecchymosis stable.? He is afebrile.? He does have anemia as stated above and leukocytosis unresponsive to antibiotic therapy.? Peripheral smear prior to PRBC transfusion revealed 1+ poikilocytosis, 2+ anisocytosis, and 2+ schistocytosis. Concern for DIC or TTP as platelets continued to fall despite replacement; INR/PT, fibrinogen, and d-dimer were elevated or high normal.? 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 We initiated high dose oral prednisone 1mg/kg 01/07 and his platelets remain are stable at 24 this morning. He is neurologically intact however his kidney function is beginning to show signs of new decline, with Creatinine of 1.49 up from 1.38 yesterday. - Dr. Aguilar consulting, awaiting bone marrow biopsy results and [id number] activity. - Hold off on platelet transfusion unless actively bleeding - Continue high dose steroids 1mg/kg daily - Transfer to higher acuity hospital as soon as bed available - multiple calls have been placed 3) Leukocytosis with eosinophilia: Differential diagnosis includes infection such as aspiration pneumonia vs. leukemia. Eosinophilia occured during last admission 3 months ago, now present again, absolute count 4100. s/p 5 days of IV rocephin without any change, discontinued - Trending labs, please see above. 4) Hypokalemia: Low potassium of 2.5 was repleted, now normalized and stable. - Trend and replete - Avoid loop diuretics 5) Abnormal chest CT scan consistent with chronic interstitial lung disease and superimposed aspiration pneumonia: Patient did receive amiodorone for his atrial fibrillation 3 months ago, possibly contributing to the interstitial fi ndings.? Received 5 days of rocephin IV. No abx at present. - Will continue to monitor 6) Persistent atrial fibrillation, rate controlled, chronic: - Continue home Xarelto - Continue Metoprolol 6.25mg BID 7) Heart Failure with improved ejection fraction: Stable 8) Acute kidney injury, new: Creatinine continues to rise, possibly due to TTP as above - Continue to trend - Attempting to transfer 9) Hx of CAD, s/p stenting: - Continue home atorvastatin. 10) Weakness, profound, secondary to chronic and acute conditions - Continue PT/OT able to mobilize to sit in chair with max assist GI ppx: PPI Code: DNR DVT ppx: Xarelto Diet: Cardiac Dispo: Strongly recommend transfer of patient, however currently no beds available. Will continue to search. MDM: Tory [phone]? Son Lewis [phone] Covid:? negative Time Spent With Patient Critical Care time: I spent a total of [] minutes of critical care time on this patient's care today; this time is exclusive of procedural time. Quality VTE Deep Vein Thrombosis/Pulmonary Embolism Present on Admission: No
--- NOTE | 2022-01-09 11:59 | OT.IPNOTE ---
Attempted to see pt for OT services. Pt is sleeping soundly now with PLT count of 24. Will hold and continue to follow.
[2022-01-10] VITALS (9 sets, daily range): BP systolic 124–145; BP diastolic 52–67; PULSE 59–65; RESP 14–16; TEMP 36.3–36.6; O2SAT 94–98
[2022-01-10 05:34] LABS: Basophils Absolute Auto 0 /uL (0-100); Basophils Percent Auto 0.3 % (0-2); Eosinophils Absolute Auto 0 /uL (0-450); Hematocrit 22.6 % (41-53); Hemoglobin 7.6 g/dL (13.5-17.5); Lymphocytes Absolute Auto 1500 /uL (1100-4500); Lymphocytes Percent Auto 9.5 % (25-40); Mean Corpuscular HGB Conc 33.6 % (30-36); Mean Corpuscular Hemoglobin 28.2 PG (26-34); Mean Corpuscular Volume 83.9 fL (80-100); Monocytes Absolute Auto 800 /uL (0-900); Monocytes Percent Auto 5.4 % (3-14); Neutrophils Absolute Auto 13200 /uL (1500-7000); Neutrophils Percent Auto 84.8 % (50-75); Red Blood Cell Count 2.69 X10^6/uL (4.5-5.9); Red Cell Distribution Width 21.6 % (11.6-14.8); White Blood Cell Count 15.6 X10^3/uL (4.5-11.0)
[2022-01-10 05:38] LABS: Alanine Aminotransferase 31 IU/L (<50); Albumin 2.4 g/dL (3.5-5.0); Albumin Globulin Ratio 0.6 (1.0-2.8); Alkaline Phosphatase 140 U/L (38-126); Aspartate Aminotransferase 45 IU/L (17-59); BUN Creatinine Ratio 35.4 (6-22); Bilirubin Total 1.1 mg/dL (0.2-1.3); Blood Urea Nitrogen 56 mg/dL (9-20); Carbon Dioxide 24 mmol/L (22-32); Chloride 109 mmol/L (98-107); Estimated Glomerular Filt Rate 44 mL/min (>60); Globulin 4.2 g/dL (1.7-4.1); Glucose 129 mg/dL (80-110); HEMOLYSIS < 15 (0-50); Potassium 4.1 mmol/L (3.4-5.1); Sodium 137 mmol/L (137-145); Total Protein 6.6 g/dL (6.3-8.2)
[2022-01-10 05:39] LABS: Add Manual Diff / Slide Review SLIDE REVIEW; Platelet Count 25 X10^3/uL (150-400)
[2022-01-10] MEDS: PANTOPRAZOLE DR 40 MG TABLET PO ×2 (07:01→21:40)
[2022-01-10 07:02] LABS: Platelet Estimate Decreased on smear
[2022-01-10 07:03] LABS: Anisocytosis 1+; Burr Cells 1+; Helmet Cells 1; Poikilocytosis 1+
[2022-01-10] MEDS: RIVAROXABAN 10 MG TABLET 15 MG PO (08:18)
[2022-01-10] MEDS: METOPROLOL ER 25 MG TABLET 6.25 MG PO ×2 (08:18→21:40)
[2022-01-10] MEDS: ATORVASTATIN 20 MG TABLET 40 MG PO (08:18)
[2022-01-10] MEDS: SODIUM CHLORIDE 0.9% FLUSH 10 ML IV ×2 (08:19→21:42)
[2022-01-10] MEDS: predniSONE 20 MG TABLET 70 MG PO (08:19)
--- NOTE | 2022-01-10 11:45 | P.PN_ITS ---
Subjective Subjective Date Patient Seen: 01/10/22 Time Patient Seen: 10:15 Interval history: The pt denies any specific concerns today. He is frustrated about the delays in transferring hospitals. He denies any recent chest pain, SOB, abdominal pain. He does not report any new bruising. He has been doing his bed exercises from PT regularly. Exam Vital Signs (past 8 hours): - 01/10/22 05:00 01/10/22 08:18 01/10/22 08:59 Temperature 97.5 F L Pulse Rate 62 62 Respiratory Rate 14 Blood Pressure 126/63 126/63 Pulse Oximetry 96 95 Oxygen Delivery Method Room Air Oxygen Flow Rate 0 01/10/22 09:20 01/10/22 07:00 01/10/22 07:00 Temperature Pulse Rate 60 Respiratory Rate Blood Pressure 124/57 L Pulse Oximetry Oxygen Delivery Method Room Air Room Air Oxygen Flow Rate Oxygen Delivery Method Room Air Oxygen Flow Rate 0 Narrative Exam Narrative: Gen:? NAD, sitting comfortably in bed, appears stated age CV:? RRR, grade 3/6 systolic murmur Resp:? clear to auscultation bilaterally Abd:? soft, nontender, nondistended Ext:? no edema Objective Labs Result Diagrams: 01/10/22 05:10 01/10/22 05:10 Labs: Laboratory Results - last 24 hr 01/10/22 01/10/22 05:10 05:10 WBC 15.6 H D RBC 2.69 L Hgb 7.6 L Hct 22.6 L MCV 83.9 MCH 28.2 MCHC 33.6 RDW 21.6 H Plt Count 25 L* Neut % (Auto) 84.8 H Lymph % (Auto) 9.5 L [place] % (Auto) 5.4 Eos % (Auto) 0.0 L Baso % (Auto) 0.3 Neut # (Auto) 00156 H Lymph # (Auto) 1500 [place] # (Auto) 800 Eos # (Auto) 0 Baso # (Auto) 0 Platelet Estimate Decreased on smear RBC Morphology Not Reportable Poikilocytosis 1+ H Anisocytosis 1+ H Helmet Cells 1 Connor Cells 1+ H Sodium 137 Potassium 4.1 Chloride 109 H Carbon Dioxide 24 BUN 56 H Creatinine 1.58 H Estimated GFR 44 L BUN/Creatinine Ratio 35.4 H Glucose 129 H Calcium 9.0 Total Bilirubin 1.1 AST 45 ALT 31 Alkaline Phosphatase 140 H Total Protein 6.6 Albumin 2.4 L Globulin 4.2 H Albumin/Globulin Ratio 0.6 L [facility] Medical History Atrial fibrillation Atrial flutter Barretts esophagus CHF (congestive heart failure) Chronic cough Degenerative arthritis GERD (gastroesophageal reflux disease) GI bleed History of cardioversion Iron deficiency anemia Spinal stenosis of lumbar region with neurogenic claudication Surgical History History of coronary angioplasty with insertion of stent Hx of cholecystectomy Hx of tonsillectomy Social History household members: spouse Smoking Status: Never smoker alcohol intake: never Assessment & Plan Assessment & Plan narrative: 1)? 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 symptomatic, normocytic/normochromic anemia.? Iron studies, Vitamin B12 and folate consistent with anemia of chronic disease but peripheral smear is abnormal with myelocytes, metamyelocytes, atypical lymphocytes on peripheral smear.? Eosinophils were also elevated at 39%, absolute count 4100.? Concerning for more malignant etiology.? Patient does have hx of eosinophilic esophagitis.? s/p 2 units PRBCs.? H/H very gradually drifting down since, continues to do so this morning.? Guaiac notably negative multiple times during stay.? Colonoscopy was not pursued secondary to age and hypokalemia upon admission which has resolved. Patient was taken off of anticoagulation upon admission and started on Protonix.? Bone marrow biopsy completed 01/03/[address] Aguilar results pending. Anticoagulation resumed on that date with continued stable hemoglobin. - F/U biopsy results - Continue to trend H/H, may need repeat transfusion tomorrow 2)? Thrombocytopenia, acute:? New problem.? Platelets on 05/28/2020 were 267; on 09/26/2019, 191.? Platelets on admission were 53, then fell to 32, due to concern for active bleeding and symptomatic anemia, he was repleted with 2 units with follow-up values of 65, 53, 41, and 32 again on 01/02/22.? He was transf used another 2 units of platelets, labs the following morning showed 88, then 48, 22, 24, now 25 today. He has no petechiae and ecchymosis stable.? He is afebrile.? He does have anemia as stated above and leukocytosis unresponsive to antibiotic therapy.? Peripheral smear prior to PRBC transfusion revealed 1+ poikilocytosis, 2+ anisocytosis, and 2+ schistocytosis. Concern for DIC or TTP as platelets continued to fall despite replacement; INR/PT, fibrinogen, and d-dimer were elevated or high normal.? 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 We initiated high dose oral prednisone 1mg/kg 01/07 and his platelets remain are stable at 25 this morning. He is neurologically intact however his kidney function is beginning to show signs of new decline, with Creatinine of 1.58 and rising. - Dr. Aguilar consulting, awaiting bone marrow biopsy results and [id number] activity. - Hold off on platelet transfusion unless actively bleeding - Continue high dose steroids 1mg/kg daily - Transfer to higher acuity hospital as soon as bed available - multiple calls have been placed 3)? Leukocytosis with eosinophilia:? Differential diagnosis includes infection such as aspiration pneumonia vs. leukemia.? Eosinophilia occured during last admission 3 months ago, now present again, absolute count 4100.? s/p 5 days of IV rocephin without any change, discontinued - Trending labs, please see above. 4)? Hypokalemia:? Low potassium of 2.5 was repleted, now normalized and stable. - Trend and replete - Avoid loop diuretics 5)? Abnormal chest CT scan consistent with chronic interstitial lung disease and superimposed aspiration pneumonia:? Patient did receive amiodorone for his atr ial fibrillation 3 months ago, possibly contributing to the interstitial findings.? Received 5 days of rocephin IV. No abx at present. - Will continue to monitor 6)? Persistent atrial fibrillation, rate controlled, chronic:? - Continue home Xarelto - Continue Metoprolol 6.25mg BID 7)? Heart Failure with improved ejection fraction:? Stable 8)? Acute kidney injury, new:? Creatinine continues to rise, possibly due to TTP as above. Question mild dehydration as well with pt having limited PO intake. - Push PO fluids today, if unable to increase fluids consider gentle IVF - Continue to trend - Attempting to transfer 9)? Hx of CAD, s/p stenting: - Continue home atorvastatin. 10)? Weakness, profound, secondary to chronic and acute conditions - Continue PT/OT able to mobilize to sit in chair with max assist GI ppx:? PPI Code:? DNR DVT ppx:? Xarelto Diet:? Cardiac Dispo:? Strongly recommend transfer of patient, however currently no beds available.? Unfortunately all hospitals in region currently on divert, with many boarding in the ED. Will continue to search. MDM: Tory [phone]? Son Lewis [phone] Covid:? negative Time Spent With Patient Critical Care time: I spent a total of [] minutes of critical care time on this patient's care today; this time is exclusive of procedural time. Quality VTE Deep Vein Thrombosis/Pulmonary Embolism Present on Admission: No
--- NOTE | 2022-01-10 18:51 | PC.NURSE ---
Pt is AxOx4, calm and pleasant. VSS, pt denies pain. Pt uses his urinal and small amt wili color urine output throughout the day. Pt was encouraged to drink more fluid. Pt is eating well and drinking well. HH-7.6/22.6 but asymptomatic and MD is aware of it. PLT-25 which better than yesterday. Otherwise, no changes. Continue monitor.
[2022-01-11 01:00] VITALS: BP 135/56; PULSE 53; RESP 14; TEMP 36.7; O2SAT 96
[2022-01-11 05:40] LABS: Hemoglobin 7.5 g/dL (13.5-17.5)
[2022-01-11 05:42] LABS: BUN Creatinine Ratio 41.5 (6-22); Blood Urea Nitrogen 59 mg/dL (9-20); Calcium 8.7 mg/dL (8.4-10.2); Carbon Dioxide 24 mmol/L (22-32); Chloride 108 mmol/L (98-107); Estimated Glomerular Filt Rate 50 mL/min (>60); Glucose 113 mg/dL (80-110); HEMOLYSIS < 15 (0-50); Potassium 4.1 mmol/L (3.4-5.1); Sodium 137 mmol/L (137-145)
[2022-01-11 06:46] LABS: Red Blood Cell Count 2.68 X10^6/uL (4.5-5.9); White Blood Cell Count 15.9 X10^3/uL (4.5-11.0)
[2022-01-11 06:47] LABS: Add Manual Diff / Slide Review YES; Mean Corpuscular HGB Conc 32.7 % (30-36); Mean Corpuscular Volume 85.6 fL (80-100); Red Cell Distribution Width 21.8 % (11.6-14.8)
[2022-01-11 06:49] LABS: Platelet Count 21 X10^3/uL (150-400)
[2022-01-11 07:36] LABS: Neutrophils Absolute Manual 12879 /uL (3000-5900); Total Cells Counted 100
[2022-01-11 07:37] LABS: Toxic Granulation Present
[2022-01-11 07:38] LABS: Anisocytosis 2+; Schistocytes 2+
[2022-01-11 07:39] LABS: Platelet Estimate Decreased on smear; Polychromasia 1+
--- NOTE | 2022-01-11 08:36 | P.PN_ITS ---
Subjective Subjective Date Patient Seen: 01/11/22 Time Patient Seen: 08:36 Interval history: Patient seen in follow-up of multiple issues. Overall patient feeling well. Has no real complaints other than he continues to feel weak. Said no bleeding from his gums anus or other changes. Otherwise feeling pretty well. Little frustrated that he has not came up with any significant issues. And no definitive treatment course with transfer to other institution Exam Vital Signs (past 8 hours): - 01/11/22 01:00 Temperature 98.1 F Pulse Rate 53 L Respiratory Rate 14 Blood Pressure 135/56 L Pulse Oximetry 96 Oxygen Flow Rate 0 Oxygen Delivery Method Room Air Oxygen Flow Rate 0 Narrative Exam Narrative: Alert smiling elderly male in no acute distress mucous membranes appear moist neck supple without adenopathy lungs are clear. Heart regular rate and rhythm without murmurs clicks rubs or gallops. Abdomen is soft positive bowel sounds nontender extremities without edema Objective Labs Result Diagrams: 01/11/22 05:00 01/11/22 05:00 Labs: Laboratory Results - last 24 hr 01/11/22 01/11/22 05:00 05:00 WBC 15.9 H RBC 2.68 L Hgb 7.5 L Hct 23.0 L MCV 85.6 MCH 28.0 MCHC 32.7 RDW 21.8 H Plt Count 21 L* Neut % (Auto) Not Reportable Lymph % (Auto) Not Reportable [place] % (Auto) Not Reportable Eos % (Auto) Not Reportable Baso % (Auto) Not Reportable Lymph # (Auto) Not Reportable [place] # (Auto) Not Reportable Baso # (Auto) Not Reportable Total Counted 100 Seg Neutrophils % 78.0 H Band Neutrophils % 3.0 Lymphocytes % (Manual) 9.0 L Atypical Lymphs % 1.0 H Monocytes % (Manual) 7.0 Myelocytes % 2.0 H Neutrophils # (Manual) 63997 H Toxic Granulation Present H Platelet Estimate Decreased on smear RBC Morphology See below Polychromasia 1+ H Anisocytosis 2+ H Schistocytes 2+ H Sodium 137 Potassium 4.1 Chloride 108 H Carbon Dioxide 24 BUN 59 H Creatinine 1.42 H Estimated GFR 50 L BUN/Creatinine Ratio 41.5 H Glucose 113 H Calcium 8.7 PFSH Medical History Atrial fibrillation Atrial flutter Barretts esophagus CHF (congestive heart failure) Chronic cough Degenerative arthritis GERD (gastroesophageal reflux disease) GI bleed History of cardioversion Iron deficiency anemia Spinal stenosis of lumbar region with neurogenic claudication Surgical History History of coronary angioplasty with insertion of stent Hx of cholecystectomy Hx of tonsillectomy Social History household members: spouse Smoking Status: Never smoker alcohol intake: never Assessment & Plan Assessment & Plan narrative: Acute renal failure. Elevated BUN. Question pre renal. No other evidence of significant changes. Doubt secondary to other blood work issues. Will add gentle hydration see what happens over the next 24 hours. Recheck tomorrow. Anemia. Normocytic/normochromic concern for hemolytic anemia. Iron studies vitamin B12 folate consistent with anemia of chronic disease peripheral snare with definite changes. Awaiting bone marrow biopsy results. We discussed this. Will discuss with activity leader. See how things go. Still looking for transfer to the [facility] who at this time does not have beds. Hematocrit stable. Will recheck the next 24 hours. Will not give replacement at this time. But if it drops any further will need to. Thrombocytopenia. Acute new problem. Issue with worsening. On high-dose steroids. Patient essentially went up a little bit now came down. And question is whether this is all TTP. Patient is on high-dose steroids will continue those. Will discuss with Dr. Aguilar and follow from there. At this point it is watching and waiting and hoping E there bone marrow biopsy or transfer to the [facility]. Leukocytosis. Probably secondary to steroids to some extent although he is sin Sherine is a big part of this. Question whether this is secondary to bone marrow issues waiting for that. Does not appear to be infected Rocephin was this case did yesterday will follow closely. Hypokalemia. Stable today. Will follow with repeat tomorrow. Abnormal chest x-ray consistent with chronic interstitial lung disease possible aspiration pneumonia. Patient has been on treatment and seems to be doing well. No further antibiotics at this time. Will need city editor as outpatient. Persistent atrial fibrillation with rate control. Continue usual medicine. Heart failure. Patient overall appears to be stable will follow. History of CAD stable. No evidence of active disease. Will follow. History of weakness. Really the biggest issue. Combination of multiple issues will continue PT OT and follow GI prophylaxis on PPI Code status DNR DVT prophylaxis on Xarelto. Patient is in the process of attempt to transferred but [facility]'s are all on divert. Will discuss with Dr. Aguilar today and see if there is anything more we can add here. Will follow. Greater than 30 minute spent with patient and discussion with nurse and dictating and orders Time Spent With Patient Critical Care time: I spent a total of [] minutes of critical care time on this patient's care today; this time is exclusive of procedural time. Quality VTE Deep Vein Thrombosis/Pulmonary Embolism Present on Admission: No
[2022-01-11] MEDS: RIVAROXABAN 10 MG TABLET 15 MG PO (09:33)
[2022-01-11] MEDS: METOPROLOL ER 25 MG TABLET 6.25 MG PO ×2 (09:34→20:54)
[2022-01-11] MEDS: PANTOPRAZOLE DR 40 MG TABLET PO ×2 (09:34→20:56)
[2022-01-11] MEDS: ATORVASTATIN 20 MG TABLET 40 MG PO (09:35)
[2022-01-11] MEDS: predniSONE 20 MG TABLET 70 MG PO (09:35)
[2022-01-11] MEDS: SODIUM CHLORIDE 0.9% 1,000 ML 100 ML IV (09:36)
--- NOTE | 2022-01-11 10:06 | PC.NURSE ---
Addendum entered by Kisha France R.N. 01/11/22 17:48: Patient eating dinner, he denies pain at this time. Pleasant with all care today. Addendum entered by Kisha France R.N. 01/11/22 13:52: Patient brushed his teeth and did some oral care, he is now up in the chair and he worked with physical therapy. Appetite is good and he voices no needs at this time. Original Note: Assess- Patient is frustrated and he doesnt feel that he knows what is going on. Patient may transfer to Counts include 234 beds at the [facility], but bed unavailable at this time. Patient given his medication without any difficulty. Platelets and Hemoglobin down. He is asymptomatic and denies syncopal feelings or episodes. Started on IVF of NS at 100cc/hr. Tolerating well.
--- NOTE | 2022-01-11 10:55 | CM.DPNOTE ---
Faxed referral to [facility] per Angelique. Minerva Maher, LINNETTE Assist.
--- NOTE | 2022-01-11 12:05 | PT.IPTN ---
Current Diagnoses Anemia, unspecified (12/28/21) Thrombocytopenia, unspecified (12/28/21) Physical Therapy Treatment Note M2 PT-IP Current Condition Start: 12/31/21 13:34 Freq: NEEDED Status: Active Protocol: Document 01/11/22 11:44 SP (Rec: 01/11/22 12:55 SP [id number]) Physical Therapy Current Condition Current Condition Evaluation Date 12/31/21 Treatment Diagnosis anemia; difficulty in walking Onset Date 12/28/21 M3 PT-IP Subjective Start: 12/31/21 13:34 Freq: NEEDED Status: Active Protocol: Document 01/11/22 11:44 SP (Rec: 01/11/22 12:55 SP [id number]) Subjective Physical Therapy Visit Type Type Treatment Note Visit Start Time 11:42 Visit Stop Time 12:05 Total Visit Minutes 23 Notes Vitals taken during tx: elevated supine: BP 115/58 HR 54bpm, SaO2 99% seated: 121/67 post mobility: 119/54 HR 57 nonsymptomatic throughout tx. Number of ANESTHETIST Visits 5 Physical Therapy Visit Comments Patient Comments Pt agreeable to getting up in chair. Patient Goals Go to rehab facility to get stronger to before returning home. Therapy Pain Assessment Pain When Pain Assessed During Mobility Pain Present Pain Present Denied Pain M4 PT-IP Mobility and Gait Start: 12/31/21 13:34 Freq: NEEDED Status: Active Protocol: Document 01/11/22 11:44 SP (Rec: 01/11/22 12:55 SP [id number]) PT-Bed Mobility Assessment Supine to Sit Supine to Sit Minimal Assistance,1 Person Assistance,Head of Bed Elevated,Bedrails Scooting Scooting to Edge of Bed Contact Guard Assistance, Minimal Assistance PT-Transfer Assessment Sit to and From Stand Sit to and from Stand Contact Guard Assistance, Moderate Assistance,Maximum Assistance,2 Person Assistance ,Use of Upper Extremities Equipment Transfer Assistive Device Gait Belt,Front Wheeled Walker Orthotic/Prosthetic Devices or Brace: No Transfers Transfer Destination Chair Transfer Technique Stand Step Pivot Transfer Ability Level of Assist Moderate Assistance,Maximum Assistance,2 Person Assistance ,Use of Upper Extremities Comments Mobility Comments Pt completed LE exercises warm up prior to mobililty 2x10 each: AP, quad and glut set, HS. Completed elevated supine> sit, scoot to EOB heavy BUE and use bed rail, CG- 5%A for trunk support as needed. Sit> stand Max A x1, Min A x RESTORATION OFFICER with using UE support on bed to FWW. SPT bed>chair w/ BUE heavy on FWW Mod- Max A x2, mod cues upright posture and quad facilitation with body close to FWW, requires increased support due to unable to extend B knees fully (approx 60 deg extension) and unstable during wB into each LE. Mod-Max A x2 descent to chair. He was ableto scoot back in chair himself. ANESTHETIST elevated BLE in chair with education on importance of trying to keep knees extended with quad set HEP support for transfers. REcommended use of wafffle cushion for maintaining skin integrity seated and supine, use of chair alarm for safety, RESTORATION OFFICER stated will provide before she left room. Pt had call light and all needs in reach before left room. Will continue to assess progress. Gait Assessment Gait Gait Assistance Required: Moderate Assistance,Maximum Assistance,2 Person Assist Distance (Feet) 3 Able to Maintain Weight Bearing Status Yes During Gait Assistive Devices Assistive Device Gait Belt,Front Wheeled Walker Orthotic/Prosthetic Devices or Brace: No Gait Deviations General Gait Pattern Decreased Stride Length, Decreased Feet Clearance, Flexed Trunk,Step-to Gait Factors Limiting Gait Function Factors Limiting Gait Function Decreased Activity Tolerance, Decreased Strength,Difficulty Following Directions,Limited Range of Motion,Poor Balance, Poor Safety Awareness Comments Gait Comments Pt increased trunk flexion and bilateral knee flexion, L>R. Mod A x2, max cues. Stair Climbing Assessment Comments Stair Climbing Comments Has 3 stairs w/ L HR at home will need to assess when able for safe DC home. PT-Balance Assessment Sitting Balance and Reactions Static Sitting Balance Ability Good Dynamic Sitting Balance Ability Fair Standing Balance and Reactions Static Standing Balance Ability Poor Dynamic Standing Balance Ability Poor Device Used FWW M5 PT-IP Objective Assessments Start: 12/31/21 13:34 Freq: NEEDED Status: Active Protocol: Document 12/31/21 11:25 AB (Rec: 12/31/21 13:44 AB [id number]) Orientation Orientation/Cognition Level of Alertness Alert Orientation Name,Place,Situation Language Function Ability No Deficits Noted Safety Awareness Decreased Safety Awareness Memory Description No Deficits Noted Gross Range of Motion Lower Extremity ROM Assessment Within Functional Limits Strength Lower Extremity Strength Assessment Bilaterally Impaired Hip 4-/5 Knee 3+/5 Muscle Tone Muscle Tone WNL Yes M6 PT-IP Treatment Start: 12/31/21 13:34 Freq: NEEDED Status: Active Protocol: Document 01/11/22 11:44 SP (Rec: 01/11/22 12:55 SP [id number]) Physical Therapy Treatment Exercises Exercises Ankle Pumps,Gluteal Sets,Quad Sets,Heel Slides,Seated Knee Flexion/Extension Knee ROM Measurement 60 deg extension during gait Education Education Provided Safety M7 PT-IP Assessment and Plan Start: 12/31/21 13:34 Freq: NEEDED Status: Active Protocol: Document 01/11/22 11:44 SP (Rec: 01/11/22 12:55 SP [id number]) PT Summary Assessment and Plan Potential Rehabilitation Potential Fair Status of Condition at Evaluation Evolving Summary Impairments Pain,ROM,Strength,Balance, Coordination,Sensation,Tone, Cognition,Bed Mobility, Transfers,Gait,Activity Tolerance Progress Towards Goals Slow Progress due to Medical Issues,Slow Progress due to Activity Tolerance Assessment Summary Pt pleasant and motiviated to mobilitize, denies pain just really weak and fatigues quickly. CG-5%A during elevated bed mob, Mod- Max x2 w/ FWW for STS and SPT bed> chair w/ FWW, Limited knee ROM and unsteady stability into extension, flexed posture and weakness limits his mobiltiy requiring increase support today unsteady BLE using FWW. Pt will require SNF for improve strength/ ROM and functional independance in mobility. Goals Bed Mobility Goal Independent Transfer Goal Standby Assistance,Front Wheeled Walker,Four Wheeled Walker Gait Goal Standby Assistance,Front Wheel Walker Gait Distance 100 Other Goals improve ambulation using 4WW ~ 200 ft SBA up/down 3 steps R rail ascending SBA Days to Meet Goals 10 Frequency of Treatment Frequency Of Treatment Once a Day Treatment Plan Physical Therapy Treatment Plan Bed Mobility Training,Transfer Training,Gait Training, Therapeutic Exercise,Balance Retraining,Discharge Planning, Hot or Cold Pack,Neuromuscular Re-ed,Coordination Retraining Other Recommendations and Next Treatment Bed mob, standing tolerance, Focus transfers, gait if tolerated using FWW, chair follow. Recommendations To Nursing Amount of Assist Needed 2 Person Assist Discharge Recommendations PT Discharge Recommendations SNF Rehab Transportation Needs at Discharge Private Vehicle,Wheelchair/ Cabulance
--- NOTE | 2022-01-11 12:25 | OT.IPNOTE ---
Discussed case with Nataliia and was discussed at rounds. Pt has not been participating with OT services and pt's PLT count today is 21 with dropping H&H as well. Will discharge OT services at this time. Please reorder if pt becomes able to participate regularly with therapy.
--- NOTE | 2022-01-11 12:44 | CM.DPC ---
DCP Cont: Discussed case during team rounds. Sent referral over to [facility], as bed is still not secured for higher level. Did hear back from Gabrielle at [facility]. She is asking if patient has spend 3 days in ICU, for this needs to be criteria for acceptance. Let her know that this case fitter will research, and send over notes if patient was ICU status at any time. Updated her on patient's case, and low platelets, and not being able to secure bed. P: DCP to continue to follow, and will follow up to see if patient was in ICU at any time. Meenakshi Patterson RN/Wool Batting Worker
[2022-01-11 15:00] VITALS: PULSE 61; RESP 18; O2SAT 96
[2022-01-11 19:00] VITALS: O2SAT 96
[2022-01-11 19:40] VITALS: O2SAT 96
[2022-01-11 19:45] VITALS: BP 125/64; PULSE 63; RESP 18; TEMP 36.4; O2SAT 96
[2022-01-11 20:54] VITALS: BP 125/64; PULSE 63
[2022-01-12] VITALS (9 sets, daily range): BP systolic 118–140; BP diastolic 59–81; PULSE 56–65; RESP 15–18; TEMP 36.2–36.8; O2SAT 94–98
[2022-01-12] MEDS: SODIUM CHLORIDE 0.9% 1,000 ML 100 ML IV (06:11)
[2022-01-12] MEDS: PANTOPRAZOLE DR 40 MG TABLET PO ×2 (06:11→20:35)
[2022-01-12 06:47] LABS: Hematocrit 21.5 % (41-53); Hemoglobin 7.1 g/dL (13.5-17.5); Mean Corpuscular HGB Conc 33.1 % (30-36); Mean Corpuscular Hemoglobin 28.9 PG (26-34); Mean Corpuscular Volume 87.4 fL (80-100); Red Blood Cell Count 2.46 X10^6/uL (4.5-5.9); Red Cell Distribution Width 22.3 % (11.6-14.8); White Blood Cell Count 15.4 X10^3/uL (4.5-11.0)
[2022-01-12 06:59] LABS: Add Manual Diff / Slide Review YES; Platelet Count 26 X10^3/uL (150-400)
[2022-01-12 07:26] LABS: Anisocytosis 3+; Neutrophils Absolute Manual 10472 /uL (3000-5900); Nucleated Red Blood Cells 2 #/Diff; Platelet Estimate Decreased on smear; Total Cells Counted 100
[2022-01-12 07:27] LABS: Schistocytes 2+
[2022-01-12 07:28] LABS: Polychromasia 2+
--- NOTE | 2022-01-12 07:34 | PC.NURSE ---
Call from Lab at [phone], critical value of platlets at 26. Called Dr Back, left message with glue bone drier service. Informed Day shift of value.
[2022-01-12 07:38] LABS: Alanine Aminotransferase 100 IU/L (<50); Albumin 2.2 g/dL (3.5-5.0); Albumin Globulin Ratio 0.6 (1.0-2.8); Alkaline Phosphatase 117 U/L (38-126); Aspartate Aminotransferase 85 IU/L (17-59); BUN Creatinine Ratio 44.3 (6-22); Bilirubin Total 1.2 mg/dL (0.2-1.3); Blood Urea Nitrogen 54 mg/dL (9-20); Calcium 8.3 mg/dL (8.4-10.2); Carbon Dioxide 25 mmol/L (22-32); Chloride 113 mmol/L (98-107); Estimated Glomerular Filt Rate 60 mL/min (>60); Globulin 3.7 g/dL (1.7-4.1); Glucose 99 mg/dL (80-110); HEMOLYSIS < 15 (0-50); Potassium 4.1 mmol/L (3.4-5.1); Sodium 140 mmol/L (137-145); Total Protein 5.9 g/dL (6.3-8.2)
--- NOTE | 2022-01-12 10:25 | PT-IP ANOTE ---
Per shingle weaver, hold PT today due to low platelets and low H&H. Pt pending transfer for higher level of care.
[2022-01-12] MEDS: METOPROLOL ER 25 MG TABLET 6.25 MG PO (10:39)
[2022-01-12] MEDS: RIVAROXABAN 10 MG TABLET 15 MG PO (10:39)
[2022-01-12] MEDS: ATORVASTATIN 20 MG TABLET 40 MG PO (10:39)
[2022-01-12] MEDS: predniSONE 20 MG TABLET 70 MG PO (10:40)
--- NOTE | 2022-01-12 11:02 | PC.NURSE ---
Addendum entered by Kisha France R.N. 01/12/22 18:09: Float RN attempted to start another iv as his is outdated, he does not want to be poked again. IV is an 18g, flushing well, no errythema around site. When Dr. espana rounds in the am, will ask for a new order for iv to be started. Blood infusing well. Addendum entered by Kisha France R.N. 01/12/22 18:01: Patients first unit of prbcs is infusing and patient is tolerating well. VSS, patient is eating dinner at this time. Addendum entered by Kisha France R.N. 01/12/22 15:00: Patient denies pain, he cleaned himself up, ivf infusing and patient is comfortable. Original Note: Patient is alert and oriented x3, into see patient. Gave Federico his medications, he is eating well at meals and denies pain.
--- NOTE | 2022-01-12 16:48 | PM.PN.1 ---
Subjective Subjective Date Patient Seen: 01/12/22 Time Patient Seen: 08:30 Interval history: CC: weakness pt still feels fine but profoundly weak. able to sit in chair for 5 hours yesterday but that's about it. ambulation is a no go. appetite is good. mood is ok and improved on hearing that: Bone marrow biopsy reassuring without any signs of active acute leukemia [facility] onc spoken with they are still ambivalent about transfer, recommend some sendout labs for now continue steroids Platelets holding steady hemoglobin down to 7.1 will replete Exam Vital Signs (past 8 hours): - 01/12/22 10:13 01/12/22 14:00 Temperature 97.1 F L Pulse Rate 62 58 L Respiratory Rate 18 17 Blood Pressure 127/61 Pulse Oximetry 95 94 Oxygen Delivery Method Room Air Oxygen Flow Rate 0 Oxygen Delivery Method Room Air Oxygen Flow Rate 0 Narrative Exam Narrative: sitting up in bed eating breakfast Const General: cooperative, comfortable and frail appearing Eyes General: appearance normal, both eyes and all related structures Resp Other: moving air well clear to auscultation bilaterally Cardio Rate: regular rate GI Other: soft nontender nondistended Skin Other: stable ecchymoses at phlebotomy sites Neuro General: patient alert, patient oriented x3, moves all extremities, no focal motor deficits and CN's II-XI intact bilaterally Extrem General: full ROM, no pedal edema and muscle atrophy Psych Appearance: grossly normal Mental Status: mental status grossly normal Objective Labs Result Diagrams: 01/12/22 06:20 01/12/22 06:20 Labs: Laboratory Results - last 24 hr 01/07/22 01/12/22 01/12/22 15:52 06:20 06:20 WBC 15.4 H RBC 2.46 L Hgb 7.1 L Hct 21.5 L MCV 87.4 MCH 28.9 MCHC 33.1 RDW 22.3 H Plt Count 26 L* Neut % (Auto) Not Reportable Lymph % (Auto) Not Reportable [place] % (Auto) Not Reportable Eos % (Auto) Not Reportable Baso % (Auto) Not Reportable Lymph # (Auto) Not Reportable [place] # (Auto) Not Reportable Baso # (Auto) Not Reportable Total Counted 100 Seg Neutrophils % 68.0 Lymphocytes % (Manual) 19.0 L Monocytes % (Manual) 5.0 Eosinophils % (Manual) 1.0 L Metamyelocytes % 7.0 H Neutrophils # (Manual) 55339 H Nucleated RBCs 2 H Platelet Estimate Decreased on smear RBC Morphology See below Polychromasia 2+ H Anisocytosis 3+ H Schistocytes 2+ H Sodium 140 Potassium 4.1 Chloride 113 H Carbon Dioxide 25 BUN 54 H Creatinine 1.22 Estimated GFR 60 BUN/Creatinine Ratio 44.3 H Glucose 99 Calcium 8.3 L Total Bilirubin 1.2 AST 85 H ALT 100 H Alkaline Phosphatase 117 Total Protein 5.9 L Albumin 2.2 L Globulin 3.7 Albumin/Globulin Ratio 0.6 L Ref Test (Refrig) Comment Crossmatch 01/12/22 15:30 WBC RBC Hgb Hct MCV MCH MCHC RDW Plt Count Neut % (Auto) Lymph % (Auto) [place] % (Auto) Eos % (Auto) Baso % (Auto) Lymph # (Auto) [place] # (Auto) Baso # (Auto) Total Counted Seg Neutrophils % Lymphocytes % (Manual) Monocytes % (Manual) Eosinophils % (Manual) Metamyelocytes % Neutrophils # (Manual) Nucleated RBCs Platelet Estimate RBC Morphology Polychromasia Anisocytosis Schistocytes Sodium Potassium Chloride Carbon Dioxide BUN Creatinine Estimated GFR BUN/Creatinine Ratio Glucose Calcium Total Bilirubin AST ALT Alkaline Phosphatase Total Protein Albumin Globulin Albumin/Globulin Ratio Ref Test (Refrig) Crossmatch See Detail [facility] Medical History Atrial fibrillation Atrial flutter Barretts esophagus CHF (congestive heart failure) Chronic cough Degenerative arthritis GERD (gastroesophageal reflux disease) GI bleed History of cardioversion Iron deficiency anemia Spinal stenosis of lumbar region with neurogenic claudication Surgical History History of coronary angioplasty with insertion of stent Hx of cholecystectomy Hx of tonsillectomy Social History household members: spouse Smoking Status: Never smoker alcohol intake: never Assessment & Plan Assessment & Plan narrative: ? #Acute Anemia.? 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 Iron studies/vitamin B12/folate consistent with anemia of chronic disease peripheral smear with definite changes.?Bone marrow biopsy today showed no leukemia with adequate generation of all three cell lines. Still looking for transfer to the [facility] who at this time does not have beds.?Hgb has been trending down since admission today down to 7.1 again so will transfuse 2 units. no source of bleeding identified. Per request from Dr. Becker heme-onc are sending in send out tests for BCR-Abl transcript with p210 and p90, as well as FISH bone marrow biopsy panel for 922. #Thrombotic Thrombocytopenic Purpura #acute thrombocytopenia Acute new problem.? On high-dose steroids 1mg/kg, platelets holding in the 20s, pt neurologically intact with mild kidney bump which is resolving. [id number] highly suggestive for TTP.? Pt will likely require total plasma exchange at this rate which is not available at our facility and is major motivating factor in expediting transfer. #Leukocytosis.? Probably secondary to steroids to some extent although eosinophilia on presentation is not clear.? Does not appear to be 2/2 bone marrow.? Does not appear to be infected although predominance is shifting from eosinophilic to neutrophilic. #Acute renal failure.? mild and seems resolved with some hydration and steroids, monitor #Hypokalemia stable trend and monitor Abnormal chest x-ray consistent with chronic interstitial lung disease possible aspiration pneumonia.? Patient has been on treatment and seems to be doing well.? No further antibiotics at this time.? 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 Persistent atrial fibrillation with rate control.? Continue usual medicine.? Heart failure.? Patient overall appears to be stable will follow.? History of CAD stable.? No evidence of active disease.? Will follow.? History of weakness.? Really the biggest issue.? Combination of multiple issues will continue PT OT and follow GI prophylaxis on PPI Code status DNR DVT prophylaxis on Xarelto.? Patient is in the process of attempt to transferred but [facility]'s are all on divert.? Will discuss with Dr. Aguilar today and see if there is anything more we can add here.? Will follow. Time Spent With Patient Critical Care time: I spent a total of [] minutes of critical care time on this patient's care today; this time is exclusive of procedural time. Quality VTE Deep Vein Thrombosis/Pulmonary Embolism Present on Admission: No
[2022-01-12 21:41] LABS: COVID19 -Nasal RAPID Negative (Negative)
--- NOTE | 2022-01-12 22:15 | PC.NURSE ---
Pt left [facility] to [facility] at [facility] via BLS at 2102 scheduled to arrive at 2234. Alert and oriented, aware and approved of POC, in no apparent cardiovascular or respiratory distress, VSS, belongings sent with patient. Report given to Katelynn in Unit [address] at 2119. Recent covid negative test faxed.
== END 2022-01-12 21:03 | disposition short-term general hospital (02) | DRG 813 ==
LOC: ED 17:31 → AC 12-29 07:42
PROVIDERS: Family Medicine; Student in an Organized Health Care Education/Training Program; Admitting Provider Family Medicine; Emergency Provider Emergency Medicine; PCP Family Medicine; Visit Provider Family Medicine
DX: D69.6 Thrombocytopenia, unspecified (principal); J69.0 Pneumonitis due to inhalation of food and vomit; J84.9 Interstitial pulmonary disease, unspecified; I48.19 Other persistent atrial fibrillation; N17.9 Acute kidney failure, unspecified; I50.30 Unspecified diastolic (congestive) heart failure; E87.6 Hypokalemia; D64.9 Anemia, unspecified; K20.0 Eosinophilic esophagitis; E78.5 Hyperlipidemia, unspecified; K21.9 Gastro-esophageal reflux disease without esophagitis; I25.10 Atherosclerotic heart disease of native coronary artery without angina pectoris; Z95.5 Presence of coronary angioplasty implant and graft; Z79.01 Long term (current) use of anticoagulants; Z20.822 Contact with and (suspected) exposure to COVID-19; Z66 Do not resuscitate
CPT/HCPCS: 36415; 36430; 38222; 71046; 71250; 80048; 80053; 81241; 82550; 82607; 82728; 82746; 83010; 83520; 83540; 83550; 83605; 83615; 83880; 84484; 85007; 85014; 85018; 85025; 85027; 85240; 85379; 85384; 85610; 85670; 85730; 86850; 86900; 86901; 87635; 93005; 93010; 94760; 96365; 96366; 97110; 97162; 97166; 97530; 99000; 99232; 99284; C9803; P9016; J0696; J1940; P9035

== ENCOUNTER 2022-02-18 09:08 | Emergency (ER) | payer OTHER, SELFPAY ==
[2021-10-11 05:10] VITALS: PULSE 52; RESP 16; O2SAT 98
[2021-12-28 19:04] VITALS: BMI 22.4
[2022-02-18] VITALS (49 sets, daily range): BP systolic 132–179; BP diastolic 82–111; PULSE 80–145; RESP 12–23; TEMP 36.8; O2SAT 86–100; BMI 21.6
--- NOTE | 2022-02-18 09:29 | ED.RECABL ---
HPI - Recheck/Abnormal Lab/Rx General Chief Complaint: Recheck/Abnormal Lab/Rx Stated Complaint: Sent by Dr. 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 Patient states he had an outpatient lab draw today was contacted told that he was hypokalemic and to come to the emergency department. He denies any symptoms, no lightheadedness, no weakness, no chest pain or shortness of breath, no tachycardia, bradycardia palpitations, no nausea, vomiting, diarrhea constipation, he states he is had normal urination with no decrease or change in urine output. He states he has been receiving an IV infusion he is had it 2 times the most recently in the last week. He states it is a special medication to keep him from getting infection but does not know exactly what it does. He has been following with Oncology for this. Patient states he has been at his normal activity, he does not believe that he takes a potassium supplement although there is 1 included on his EMR. He is had cholecystectomy denies other surgery. No tobacco, rare alcohol, no illicit. Dr. Pineda is his PCP. Related Data Home Medications Medication Instructions Recorded Confirmed atorvastatin 40 mg tablet 40 mg PO DAILY 12/02/20 01/28/22 metoprolol succinate 25 mg 12.5 mg PO BID 12/28/21 01/28/22 tablet,extended release 24 hr rivaroxaban 10 mg tablet (Xarelto) 20 mg PO DAILY 01/28/22 01/28/22 Previous Rx's Medication Instructions Recorded pantoprazole 40 mg tablet,delayed 40 mg PO 0700,2100 #180 tabs 01/02/22 release torsemide 20 mg tablet 20 mg PO DAILY #30 tabs 01/02/22 potassium chloride 20 mEq oral 20 meq PO DAILY #5 ea 02/18/22 packet Allergies Allergy/AdvReac Type Severity Reaction Status Date / Time No Known Drug Allergies Allergy Verified 02/18/22 09:16 Review of Systems Review of Systems ROS Unobtainable: All systems reviewed & are unremarkable except as noted in HPI and below Patient History Medical History Atrial fibrillation Atrial flutter Barretts esophagus CHF (congestive heart failure) Chronic cough Degenerative arthritis GERD (gastroesophageal reflux disease) GI bleed History of cardioversion Iron deficiency anemia Spinal stenosis of lumbar region with neurogenic claudication Surgical History History of coronary angioplasty with insertion of stent Hx of cholecystectomy Hx of tonsillectomy Social History household members: spouse Smoking Status: Never smoker alcohol intake: never Smoking Status: Never smoker alcohol intake frequency: holidays/special occasions only Substance Use Type: does not use Exam Narrative Exam Narrative: GENERAL: Alert and oriented x three, male in mild distress. HEENT: Head normocephalic, atraumatic, EOMI, pupils reactive, face symmetric, moist mucous membranes NECK: Supple, full range of motion CARDIOVASCULAR: Irregularly irregular rate and rhythm without murmurs, rubs or gallops. No JVD, bilateral lower extremity swelling 1+. RESPIRATORY: Breath sounds equal bilaterally, no wheezes rales or rhonchi. No tachypnea or accessory muscle use. ABDOMEN: Soft, nontender. Normoactive bowel sounds all 4 quadrants. No guarding or rebound, rigidity, no mass : No CVA tenderness EXTREMITIES: Normal range of motion, no clubbing or edema. Neurovascularly intact NEUROLOGICAL: Cranial nerves II through XII grossly intact. Moving all extremities. Normal gait. SKIN: Warm, dry, no petechiae, no rashes or lesions. Initial Vital Signs Initial Vital Signs: Vital Signs Temperature 98.3 F 02/18/22 09:10 Pulse Rate 81 02/18/22 09:10 Respiratory Rate 15 02/18/22 09:10 Blood Pressure 174/95 H 02/18/22 09:10 Pulse Oximetry 100 02/18/22 09:10 Oxygen Delivery Method 02/18/22 09:10 Course Orders Ordered: Discontinued Medications POTASSIUM CHLORIDE IN WATER (Potassium Cl 10 Meq/100 Ml Deja) 10 meq in 100 mls @ 100 mls/hr IV Q1H FE Stop: 02/18/22 14:14 Last Admin: 02/18/22 13:32 Dose: 100 mls/hr Documented By: Infusion: 02/18/22 13:27 Dose: 100 mls/hr Documented By: Admin: 02/18/22 12:27 Dose: 100 mls/hr Documented By: Infusion: 02/18/22 12:25 Dose: 100 mls/hr Documented By: Admin: 02/18/22 11:25 Dose: 100 mls/hr Documented By: Infusion: 02/18/22 11:24 Dose: 0 mls/hr Documented By: Admin: 02/18/22 10:23 Dose: 100 mls/hr Documented By: MIGUEL POTASSIUM CHLORIDE IN WATER (Potassium Cl 10 Meq/100 Ml Djea) 10 meq in 100 mls @ 100 mls/hr IV Q1H FE Stop: 02/18/22 15:14 Last Admin: 02/18/22 20:30 Dose: Not Given Documented By: FLKale Infusion: 02/18/22 18:52 Dose: 0 mls/hr Documented By: Admin: 02/18/22 17:52 Dose: 100 mls/hr Documented By: Infusion: 02/18/22 16:56 Dose: 100 mls/hr Documented By: Admin: 02/18/22 15:56 Dose: 100 mls/hr Documented By: Infusion: 02/18/22 15:29 Dose: 100 mls/hr Documented By: Admin: 02/18/22 14:29 Dose: 100 mls/hr Documented By: MIGUEL Metoprolol Succinate (Metoprolol Er 25 Mg Tablet) 12.5 mg PO NOW ONE Stop: 02/18/22 18:34 Last Admin: 02/18/22 18:45 Dose: 12.5 mg Documented By: ELIDIA Metoprolol Tartrate (Metoprolol Tartrate 5 Mg/5 Ml Inj) 5 mg IV Q5M FE Stop: 02/18/22 16:41 Last Admin: 02/18/22 16:57 Dose: 5 mg Documented By: Admin: 02/18/22 16:39 Dose: 5 mg Documented By: Admin: 02/18/22 16:32 Dose: 5 mg Documented By: MIGUEL Potassium Chloride (Potassium Chloride 20 Meq/15 Ml Udc) 40 meq PO NOW ONE Stop: 02/18/22 09:30 Last Admin: 02/18/22 09:35 Dose: 40 meq Documented By: KF Vital Signs Vital signs: Vital Signs - 8 hr 02/18/22 12:30 02/18/22 12:30 02/18/22 12:45 Pulse Rate 124 H 116 H Respiratory Rate 17 19 Blood Pressure 140/82 Pulse Oximetry 100 100 02/18/22 12:45 02/18/22 13:00 02/18/22 13:00 Pulse Rate 129 H Respiratory Rate 20 Blood Pressure 148/93 H 142/89 H Pulse Oximetry 99 02/18/22 13:15 02/18/22 13:15 02/18/22 13:30 Pulse Rate 125 H Respiratory Rate 16 Blood Pressure 142/98 H 141/108 H Pulse Oximetry 100 02/18/22 13:30 02/18/22 13:45 02/18/22 13:45 Pulse Rate 117 H 102 H Respiratory Rate 14 16 Blood Pressure 146/92 H Pulse Oximetry 99 100 02/18/22 14:00 02/18/22 14:00 02/18/22 14:15 Pulse Rate 111 H 115 H Respiratory Rate 17 15 Blood Pressure 152/90 H Pulse Oximetry 100 99 02/18/22 14:15 02/18/22 14:30 02/18/22 14:30 Pulse Rate 118 H Respiratory Rate 16 Blood Pressure 148/97 H 140/89 Pulse Oximetry 100 02/18/22 14:45 02/18/22 14:45 02/18/22 15:00 Pulse Rate 97 H Respiratory Rate 17 Blood Pressure 149/98 H 148/98 H Pulse Oximetry 98 02/18/22 15:00 02/18/22 15:15 02/18/22 15:15 Pulse Rate 120 H 127 H Respiratory Rate 15 19 Blood Pressure 140/99 H Pulse Oximetry 98 02/18/22 15:30 02/18/22 15:30 02/18/22 15:45 Pulse Rate 123 H 126 H Respiratory Rate 12 14 Blood Pressure 153/111 H Pulse Oximetry 100 100 02/18/22 15:45 02/18/22 16:00 02/18/22 16:01 Pulse Rate 145 H Respiratory Rate 20 Blood Pressure 152/96 H 154/104 H Pulse Oximetry 99 02/18/22 16:01 02/18/22 16:15 02/18/22 16:15 Pulse Rate 131 H 126 H Respiratory Rate 22 19 Blood Pressure 161/91 H Pulse Oximetry 99 100 02/18/22 16:30 02/18/22 16:31 02/18/22 16:31 Pulse Rate 126 H 128 H Respiratory Rate 16 17 Blood Pressure 148/98 H Pulse Oximetry 100 100 02/18/22 16:33 02/18/22 16:33 02/18/22 16:39 Pulse Rate 125 H 124 H Respiratory Rate 23 14 Blood Pressure 148/96 H Pulse Oximetry 100 100 02/18/22 16:39 02/18/22 16:45 02/18/22 16:45 Pulse Rate 111 H Respiratory Rate 17 Blood Pressure 148/106 H 156/93 H Pulse Oximetry 100 02/18/22 17:00 02/18/22 17:00 02/18/22 18:45 Pulse Rate 118 H 122 H Respiratory Rate 22 Blood Pressure 162/107 H 135/98 H Pulse Oximetry 99 MDM - Recheck/Abnormal Lab/Rx Lab Data Result diagrams: 02/18/22 09:24 02/18/22 18:51 Labs: Lab Results 02/18/22 02/18/22 02/18/22 Range/Units 09:24 09:24 18:51 WBC 7.5 (4.5-11.0) X10^3/uL RBC 3.93 L (4.5-5.9) X10^6/uL Hgb 10.9 L (13.5-17.5) g/dL Hct 33.9 L (41-53) % MCV 86.1 (80-100) fL MCH 27.6 (26-34) PG MCHC 32.1 (30-36) % RDW 19.7 H (11.6-14.8) % Plt Count 91 L (150-400) X10^3/uL Neut % (Auto) 90.5 H (50-75) % Lymph % (Auto) 4.0 L (25-40) % [place] % (Auto) 5.3 (3-14) % Eos % (Auto) 0.0 L (2-4) % Baso % (Auto) 0.2 (0-2) % Neut # (Auto) 6800 (3251-1385) /uL Lymph # (Auto) 300 L (7668-1590) /uL [place] # (Auto) 400 (0-900) /uL Eos # (Auto) 0 (0-450) /uL Baso # (Auto) 0 (0-100) /uL Sodium 136 L 137 (137-145) mmol/L Potassium 2.1 L* 3.4 D (3.4-5.1) mmol/L Chloride 97 L 99 (98-107) mmol/L Carbon Dioxide 36 H 32 (22-32) mmol/L BUN 30 H 32 H (9-20) mg/dL Creatinine 1.07 1.10 (0.66-1.25) mg/dL Estimated GFR > 60 > 60 (>60) mL/min BUN/Creatinine Ratio 28.0 H 29.1 H (6-22) Glucose 133 H 131 H (80-110) mg/dL Calcium 7.9 L 7.4 L (8.4-10.2) mg/dL Total Bilirubin 0.6 (0.2-1.3) mg/dL AST 54 (17-59) IU/L ALT 83 H (<50) IU/L Alkaline Phosphatase 117 (38-126) U/L Troponin I 0.066 H (0.01-0.034) ng/mL Total Protein 5.4 L (6.3-8.2) g/dL Albumin 3.1 L (3.5-5.0) g/dL Globulin 2.3 (1.7-4.1) g/dL Albumin/Globulin Ratio 1.3 (1.0-2.8) SARS-CoV-2 (PCR) (Negative) 02/18/22 Range/Units 20:00 WBC (4.5-11.0) X10^3/uL RBC (4.5-5.9) X10^6/uL Hgb (13.5-17.5) g/dL Hct (41-53) % MCV (80-100) fL MCH (26-34) PG MCHC (30-36) % RDW (11.6-14.8) % Plt Count (150-400) X10^3/uL Neut % (Auto) (50-75) % Lymph % (Auto) (25-40) % [place] % (Auto) (3-14) % Eos % (Auto) (2-4) % Baso % (Auto) (0-2) % Neut # (Auto) (5769-5010) /uL Lymph # (Auto) (9908-1194) /uL [place] # (Auto) (0-900) /uL Eos # (Auto) (0-450) /uL Baso # (Auto) (0-100) /uL Sodium (137-145) mmol/L Potassium (3.4-5.1) mmol/L Chloride (98-107) mmol/L Carbon Dioxide (22-32) mmol/L BUN (9-20) mg/dL Creatinine (0.66-1.25) mg/dL Estimated GFR (>60) mL/min BUN/Creatinine Ratio (6-22) Glucose (80-110) mg/dL Calcium (8.4-10.2) mg/dL Total Bilirubin (0.2-1.3) mg/dL AST (17-59) IU/L ALT (<50) IU/L Alkaline Phosphatase (38-126) U/L Troponin I (0.01-0.034) ng/mL Total Protein (6.3-8.2) g/dL Albumin (3.5-5.0) g/dL Globulin (1.7-4.1) g/dL Albumin/Globulin Ratio (1.0-2.8) SARS-CoV-2 (PCR) Negative (Negative) ECG Data Attestation: I personally reviewed and interpreted this ECG as follows: Interpretation: AFib with occasional PVC rate of 96 TX 100 QTC of 464. No acute ST elevation noted. Patient has some mild depression lateral leads V4 5 6. Patient has prior EKG from January 13 which does not show S waves in 3 and AVF but is seen on 10/11/2021. EKG2. AFib with RVR. Rate of 150 QRS 88 QTC 415. No acute ST changes appreciated. Patient's this 70 ST depression noted. MDM Narrative Medical decision making narrative: This is a 81-year-old male sent for hypokalemia, patient is currently on rituximab for acquired TTP and this is a known adverse reaction for this medication. It appears that he is also on torsemide and potassium chloride although patient did not think that he was on any supplementation. He is currently asymptomatic. Labs were repeated and this was confirmed. Potassium was replaced IV and orally. Spoke with patient's primary care physician Dr. Pineda asked if we could try to replace had discharge home today. Patient has required plasmapheresis in the past which we do not have available Patient developed AFib RVR while here in the department, was given metoprolol IV x3. He did have his home metoprolol this morning. He has a history of AFib RVR he is anticoagulated on Xarelto. Cardioversion was not pursued initially as patient has electrolyte abnormalities that need to be fully treated. Spoke with his primary care service who states they feel uncomfortable keeping him here as he has required plasmapheresis in the past which is not something we have available and asks if we can transfer for his hypokalemia and cardiac arrhythmias. Discussed with patient his heart rate has improved but not normalized. He still in AFib. After long discussion and discussed cardioversion as his electrolytes are much closer to normal but patient for prefer to return home. Is otherwise asymptomatic at this time. Patient and I discussed adding back potassium as he has prescriptions and was appears to be on in the past and is still on diuretics. Patient does not wish to stay. He wishes to return home we reviewed all of his findings today. He is not feeling that his heart rate is elevated but he has a monitor at home so asked that he return if he staying persistently elevated over the next 24 hours. He was given additional dose of his home metoprolol, I suspect his rhythm may improve has his potassium is more normalized. Discharge Plan Departure Patient Disposition: Home Clinical Impression: Hypokalemia, Atrial fibrillation with rapid ventricular response Instructions: DI for Hypokalemia Activity Restrictions/Additional Instructions: Follow up with your physician next week. You should have your potassium level rechecked on Tuesday. There is an outpatient lab order included. As discussed you have deferred cardioversion today, monitor your heart rate at home and if you are persistently elevated please return. Please take potassium replacement daily. Your physician may need to adjust this over time depending on your medications. Prescription sent to [facility]. Please return for fevers, increasing chest pain, shortness of breath, lightheadedness or passing out, persistent fast heartbeat, new swelling or other new or concerning symptoms. Prescriptions: Continued potassium chloride 20 mEq packet 20 meq PO DAILY Qty: 5 1RF No Action Xarelto 10 mg Tablet 20 mg PO DAILY Rx Instructions: for 35 days atorvastatin 40 mg Tablet 40 mg PO DAILY Rx Instructions: in evening metoprolol succinate 25 mg tablet extended release 24 hr 12.5 mg PO BID Label Comments: Take 1/2 tablet by mouth twice a day for blood pressure control pantoprazole 40 mg Tablet,Delayed Release (Dr/Ec) 40 mg PO 0700,2100 Qty: 180 1RF torsemide 20 mg tablet 20 mg PO DAILY Qty: 30 1RF Referrals: Willy Pineda MD [Primary Care Provider] - Visit Report Forms: Patient Portal/API
[2022-02-18] MEDS: POTASSIUM CHLORIDE 20 MEQ/15 ML UDC 40 MEQ PO (09:35)
--- NOTE | 2022-02-18 09:39 | PC.NURSE ---
pt in stretcher, awake, alert. denies symptoms. reports i am feeling fine. educated on POC and medication. RT at bedside for EKG. pt on monitor, hx of a-fib. RR even unlabored. skin wnl. denies needs at this time. call light in close reach.
[2022-02-18 10:00] LABS: Add Manual Diff / Slide Review NO; Basophils Absolute Auto 0 /uL (0-100); Basophils Percent Auto 0.2 % (0-2); Eosinophils Absolute Auto 0 /uL (0-450); Hematocrit 33.9 % (41-53); Hemoglobin 10.9 g/dL (13.5-17.5); Lymphocytes Absolute Auto 300 /uL (1100-4500); Mean Corpuscular HGB Conc 32.1 % (30-36); Mean Corpuscular Hemoglobin 27.6 PG (26-34); Mean Corpuscular Volume 86.1 fL (80-100); Monocytes Absolute Auto 400 /uL (0-900); Monocytes Percent Auto 5.3 % (3-14); Neutrophils Absolute Auto 6800 /uL (1500-7000); Neutrophils Percent Auto 90.5 % (50-75); Platelet Count 91 X10^3/uL (150-400); Red Blood Cell Count 3.93 X10^6/uL (4.5-5.9); Red Cell Distribution Width 19.7 % (11.6-14.8); White Blood Cell Count 7.5 X10^3/uL (4.5-11.0)
[2022-02-18 10:13] LABS: Alanine Aminotransferase 83 IU/L (<50); Albumin 3.1 g/dL (3.5-5.0); Albumin Globulin Ratio 1.3 (1.0-2.8); Alkaline Phosphatase 117 U/L (38-126); Aspartate Aminotransferase 54 IU/L (17-59); Bilirubin Total 0.6 mg/dL (0.2-1.3); Blood Urea Nitrogen 30 mg/dL (9-20); Calcium 7.9 mg/dL (8.4-10.2); Carbon Dioxide 36 mmol/L (22-32); Chloride 97 mmol/L (98-107); Estimated Glomerular Filt Rate > 60 mL/min (>60); Globulin 2.3 g/dL (1.7-4.1); Glucose 133 mg/dL (80-110); HEMOLYSIS < 15 (0-50); Sodium 136 mmol/L (137-145); Total Protein 5.4 g/dL (6.3-8.2)
[2022-02-18 10:15] LABS: Potassium 2.1 mmol/L (3.4-5.1)
[2022-02-18] MEDS: POTASSIUM CHLORIDE IN WATER 10 MEQ/100 ML PIGGYBACK 100 MEQ IV ×7 (10:23→17:52)
--- NOTE | 2022-02-18 16:27 | PC.NURSE ---
MD NOTIFIED OF PT'S ELEVATED HR, AFIB RVR ON MONITOR. PT ASYMPTOMATIC, DENIES CP/SOB/DIZZINESS. MD TO PLACE ORDERS
[2022-02-18] MEDS: METOPROLOL TARTRATE 5 MG/5 ML INJ IV ×3 (16:32→16:57)
--- NOTE | 2022-02-18 18:11 | PC.NURSE ---
md notified of persistent elevated hr s/p medicine worker per orders. repeat ekg ordered and to repeat K after 7th bag of potassium.
[2022-02-18] MEDS: METOPROLOL ER 25 MG TABLET 12.5 MG PO (18:45)
[2022-02-18 19:12] LABS: BUN Creatinine Ratio 29.1 (6-22); Blood Urea Nitrogen 32 mg/dL (9-20); Calcium 7.4 mg/dL (8.4-10.2); Carbon Dioxide 32 mmol/L (22-32); Chloride 99 mmol/L (98-107); Estimated Glomerular Filt Rate > 60 mL/min (>60); Glucose 131 mg/dL (80-110); HEMOLYSIS 20 (0-50); Potassium 3.4 mmol/L (3.4-5.1); Sodium 137 mmol/L (137-145)
[2022-02-18 19:24] LABS: Troponin I 0.066 ng/mL (0.01-0.034)
[2022-02-18 20:32] LABS: COVID19 -Nasal RAPID Negative (Negative)
== END 2022-02-18 20:30 | disposition home or self-care (01) ==
PROVIDERS: Emergency Provider Emergency Medicine; PCP Family Medicine
DX: I48.91 Unspecified atrial fibrillation (principal); Z79.01 Long term (current) use of anticoagulants; E87.6 Hypokalemia; Z20.822 Contact with and (suspected) exposure to COVID-19; M31.19 Other thrombotic microangiopathy
CPT/HCPCS: 36415; 80048; 80053; 84484; 85025; 87635; 93005; 96365; 96366; 96375; 99284; C9803

== ENCOUNTER 2022-02-20 12:55 | Observation (INO) | payer OTHER, SELFPAY ==
[2021-10-11 05:10] VITALS: PULSE 52; RESP 16; O2SAT 98
[2021-12-28 19:04] VITALS: BMI 22.4
[2022-02-20] VITALS (16 sets, daily range): BP systolic 118–153; BP diastolic 65–97; PULSE 89–133; RESP 14–21; TEMP 36.3–37.1; O2SAT 95–100; BMI 26.7
--- NOTE | 2022-02-20 13:37 | DI.RAD.S_ITS ---
PROCEDURE: XR CHEST 1V INDICATIONS: chest pain TECHNIQUE: One view of the chest was acquired. COMPARISON: [facility], CR, XR CHEST 2V, 12/28/2021, 14:50. [facility], CR, XR CHEST 1V, 10/11/2021, 1:05. FINDINGS: Surgical changes and devices: None. Lungs and pleura: Mild lower lung opacities bilaterally. Mild to moderate left pleural effusion. Possible trace right pleural effusion. Chronic interstitial lung disease better seen on CT. Mediastinum: Mediastinal contours appear normal. Heart size is normal. Bones and chest wall: No suspicious bony lesions. Overlying soft tissues appear unremarkable. IMPRESSION: Mild lower lung opacities likely atelectasis and fibrosis/scar, possible component of airspace disease such as aspiration. Mild to moderate left pleural effusion. Trace right pleural effusion. Chronic interstitial lung disease better seen on CT. Dictated by: Herminio Bradley M.D. on 02/20/2022 at 14:23 Approved by: Herminio Bradley M.D. on 02/20/2022 at 14:25
[2022-02-20 14:04] LABS: Hematocrit 32.4 % (41-53); Hemoglobin 10.4 g/dL (13.5-17.5); Mean Corpuscular HGB Conc 32.2 % (30-36); Mean Corpuscular Hemoglobin 27.7 PG (26-34); Mean Corpuscular Volume 86.2 fL (80-100); Platelet Count 68 X10^3/uL (150-400); Red Blood Cell Count 3.76 X10^6/uL (4.5-5.9); Red Cell Distribution Width 19.8 % (11.6-14.8); White Blood Cell Count 7.1 X10^3/uL (4.5-11.0)
[2022-02-20 14:12] LABS: Add Manual Diff / Slide Review YES
[2022-02-20 14:14] LABS: Alanine Aminotransferase 148 IU/L (<50); Albumin 2.8 g/dL (3.5-5.0); Albumin Globulin Ratio 1.2 (1.0-2.8); Alkaline Phosphatase 116 U/L (38-126); Aspartate Aminotransferase 73 IU/L (17-59); BUN Creatinine Ratio 34.5 (6-22); Bilirubin Total 0.5 mg/dL (0.2-1.3); Blood Urea Nitrogen 38 mg/dL (9-20); Calcium 7.5 mg/dL (8.4-10.2); Carbon Dioxide 34 mmol/L (22-32); Chloride 103 mmol/L (98-107); Creatine Kinase 30 U/L (55-170); Estimated Glomerular Filt Rate > 60 mL/min (>60); Globulin 2.3 g/dL (1.7-4.1); Glucose 90 mg/dL (80-110); HEMOLYSIS < 15 (0-50); Lipase 89 U/L (23-300); Sodium 141 mmol/L (137-145); Total Protein 5.1 g/dL (6.3-8.2)
[2022-02-20 14:25] LABS: Potassium 2.7 mmol/L (3.4-5.1)
[2022-02-20 14:26] LABS: Troponin I 0.084 ng/mL (0.01-0.034)
[2022-02-20 14:34] LABS: COVID19 -Nasal RAPID Negative (Negative)
[2022-02-20 14:40] LABS: Neutrophils Absolute Manual 5822 /uL (3000-5900); Total Cells Counted 100
[2022-02-20 14:42] LABS: Acanthocytes 2+; Anisocytosis 3+; Hypochromasia 3+; Microcytosis 2+; Poikilocytosis 2+
[2022-02-20] MEDS: POTASSIUM CHLORIDE 20 MEQ TAB 40 MEQ PO ×2 (15:40→20:44)
[2022-02-20] MEDS: POTASSIUM CHLORIDE IN WATER 10 MEQ/100 ML PIGGYBACK 100 MEQ IV ×6 (15:47→22:59)
--- NOTE | 2022-02-20 15:56 | ED_ITS ---
HPI - Recheck/Abnormal Lab/Rx General Chief Complaint: Recheck/Abnormal Lab/Rx Stated Complaint: marium brennan sent him Time Seen by Provider: 02/20/22 13:26 Source: patient Mode of arrival: other Limitations: no limitations History of Present Illness HPI narrative: This is an 81-year-old male with history of acquired TTP, eosinophilia, CHF, AFib on Xarelto, iron deficiency anemia, aortic stenosis and undifferentiated interstitial lung disease who was sent for low potassium. Patient had outpatient labs drawn today to be rechecked as he was low on February 18. Patient once again low at 2.7 although he was 1.9 on 02/18/2022. He did not wish to be admitted he received IV potassium in the department, we suspected that his rituximab in conjunction with his torsemide and not being on oral potassium chloride may have caused his hypokalemia. Patient states he is totally asymptomatic he has no symptoms. He has not had any headaches, weakness, chest pain, shortness of breath, numbness tingling, no nausea or vomiting, no diarrhea constipation, he denies urinary symptoms. He states stopped his torsemide to see if that improves his symptoms. His oncologist ordered repeat potassium. Patient was in AFib RVR or developed into it while in the emergency department his visit on the he was initially rate controlled. He states at home he has been rate controlled without any elevations or hypotension and has been checking his heart rate and blood pressure regularly. Related Data Home Medications Medication Instructions Recorded Confirmed atorvastatin 40 mg tablet 40 mg PO DAILY 12/02/20 02/20/22 metoprolol succinate 25 mg 12.5 mg PO BID 12/28/21 02/20/22 tablet,extended release 24 hr rivaroxaban 10 mg tablet (Xarelto) 20 mg PO DAILY 01/28/22 02/20/22 Previous Rx's Medication Instructions Recorded pantoprazole 40 mg tablet,delayed 40 mg PO 0700,2100 #180 tabs 01/02/22 release torsemide 20 mg tablet 20 mg PO DAILY #30 tabs 01/02/22 potassium chloride 20 mEq oral 20 meq PO DAILY #5 ea 02/18/22 packet Allergies Allergy/AdvReac Type Severity Reaction Status Date / Time No Known Drug Allergies Allergy Verified 02/18/22 09:16 Review of Systems Review of Systems ROS Unobtainable: All systems reviewed & are unremarkable except as noted in HPI and below Patient History Medical History Atrial fibrillation Atrial flutter Barretts esophagus CHF (congestive heart failure) Chronic cough Degenerative arthritis GERD (gastroesophageal reflux disease) GI bleed History of cardioversion Iron deficiency anemia Spinal stenosis of lumbar region with neurogenic claudication Surgical History History of coronary angioplasty with insertion of stent Hx of cholecystectomy Hx of tonsillectomy Social History household members: spouse Smoking Status: Never smoker alcohol intake: current Smoking Status: Never smoker alcohol intake frequency: holidays/special occasions only Substance Use Type: does not use Exam Narrative Exam Narrative: GENERAL: Alert and oriented x three, male in mild distress HEENT: Head normocephalic, atraumatic, EOMI, pupils reactive, face symmetric, moist mucous membranes NECK: Supple, full range of motion CARDIOVASCULAR: Irregularly irregular rate and rhythm without murmurs, rubs or gallops. No JVD. No swelling bilateral lower extremities. RESPIRATORY: Breath sounds equal bilaterally, no wheezes rales or rhonchi. ABDOMEN: Soft, nontender. Normoactive bowel sounds all 4 quadrants. No guarding or rebound, rigidity, no mass : No CVA tenderness EXTREMITIES: Normal range of motion, no clubbing or edema. Neurovascularly intact NEUROLOGICAL: Cranial nerves II through XII grossly intact. Moving all extremities. Normal gait. SKIN: Warm, dry, no petechiae, no rashes or lesions. Initial Vital Signs Initial Vital Signs: Vital Signs Temperature 97.3 F L 02/20/22 13:37 Pulse Rate 111 H 02/20/22 13:37 Respiratory Rate 20 02/20/22 13:37 Blood Pressure 138/65 02/20/22 13:37 Pulse Oximetry 99 02/20/22 13:37 Oxygen Delivery Method 02/20/22 13:37 Course Orders Ordered: ED Orders 02/20/22 13:36 EKG-12 Lead Stat 02/20/22 13:37 XR chest 1V Stat 02/20/22 13:54 Complete Blood Count AUTO DIFF Stat Comprehensive Metabolic Panel Stat Lipase Stat Magnesium Stat Troponin & CK Cardiac Panel Stat 02/20/22 14:11 COVID19 -Nasal RAPID/Pre-Proc Stat 02/20/22 18:04 Education, smoking cessation ONGOING 02/20/22 20:00 Potassium Urgent 02/21/22 05:00 Basic Metabolic Panel Routine Magnesium Routine Acetaminophen (Acetaminophen 325 Mg Tablet) 650 mg PO Q6HR PRN PRN Reason: Pain, Mild (1-3) Atorvastatin Calcium (Atorvastatin 20 Mg Tablet) 40 mg PO DAILY FE POTASSIUM CHLORIDE IN WATER (Potassium Cl 10 Meq/100 Ml Deja) 10 meq in 100 mls @ 100 mls/hr IV Q1H FE Stop: 02/20/22 19:44 Last Admin: 02/20/22 18:48 Dose: 100 mls/hr Documented By: Infusion: 02/20/22 17:59 Dose: 100 mls/hr Documented By: Infusion: 02/20/22 17:39 Dose: 100 mls/hr Documented By: Admin: 02/20/22 16:59 Dose: 100 mls/hr Documented By: Infusion: 02/20/22 16:56 Dose: 100 mls/hr Documented By: Admin: 02/20/22 15:47 Dose: 100 mls/hr Documented By: Metoprolol Succinate (Metoprolol Er 25 Mg Tablet) 12.5 mg PO BID FE Ondansetron HCl (Ondansetron 4 Mg/2 Ml Inj) 4 mg IV Q8HR PRN PRN Reason: Nausea And Vomiting Pantoprazole Sodium (Pantoprazole Dr 40 Mg Tablet) 40 mg PO 0700,2100 [facility] Potassium Chloride (Potassium Chloride 20 Meq Tab) 40 meq PO TIDWM [facility] Last Admin: 02/20/22 18:49 Dose: Not Given Documented By: HCW Rivaroxaban (Rivaroxaban 10 Mg Tablet) 20 mg PO DAILY FE Discontinued Medications Metoprolol Tartrate (Metoprolol Ir 25 Mg Tablet) 12.5 mg PO NOW ONE Stop: 02/20/22 18:05 Last Admin: 02/20/22 18:54 Dose: 12.5 mg Documented By: HCW Potassium Chloride (Potassium Chloride 20 Meq Tab) 40 meq PO NOW ONE Stop: 02/20/22 15:29 Last Admin: 02/20/22 15:40 Dose: 40 meq Documented By: Consultations Consultation #1: Dr. Simons for Dr. Pineda, discussed patient has return 2nd time in 48 hours with low potassium. We attempted to place him for observation on his last stay but patient and primary service were reluctant but he is bounced back with same hi story patient has already stopped the most likely causes of his hypokalemia. They are willing to keep patient for observation overnight while replacing potassium. He has had some AFib RVR he has been mostly rate controlled although after acceptance heart rate increased to 130s. Vital Signs Vital signs: Vital Signs - 8 hr 02/20/22 13:37 02/20/22 14:01 02/20/22 14:30 Temperature 97.3 F L Pulse Rate 111 H 89 90 Respiratory Rate 20 14 Blood Pressure 138/65 Pulse Oximetry 99 98 99 Oxygen Delivery Method Room Air 02/20/22 15:00 02/20/22 15:30 02/20/22 16:00 Temperature Pulse Rate 106 H 95 H 95 H Respiratory Rate 17 14 17 Blood Pressure Pulse Oximetry 99 99 100 Oxygen Delivery Method 02/20/22 16:30 Temperature Pulse Rate 109 H Respiratory Rate 18 Blood Pressure 153/73 H Pulse Oximetry 99 Oxygen Delivery Method MDM - Recheck/Abnormal Lab/Rx Lab Data Result diagrams: 02/20/22 13:54 02/20/22 13:54 Labs: Lab Results 02/20/22 02/20/22 02/20/22 Range/Units 13:54 13:54 14:11 WBC 7.1 (4.5-11.0) X10^3/uL RBC 3.76 L (4.5-5.9) X10^6/uL Hgb 10.4 L (13.5-17.5) g/dL Hct 32.4 L (41-53) % MCV 86.2 (80-100) fL MCH 27.7 (26-34) PG MCHC 32.2 (30-36) % RDW 19.8 H (11.6-14.8) % Plt Count 68 L (150-400) X10^3/uL Neut % (Auto) Not Reportable Lymph % (Auto) Not Reportable [place] % (Auto) Not Reportable Eos % (Auto) Not Reportable Baso % (Auto) Not Reportable Lymph # (Auto) Not Reportable [place] # (Auto) Not Reportable Baso # (Auto) Not Reportable Total Counted 100 Seg Neutrophils % 82.0 H (38-70) % Band Neutrophils % 0.0 L (3-7) % Lymphocytes % (Manual) 14.0 L (25-45) % Monocytes % (Manual) 4.0 (2-11) % Eosinophils % (Manual) 0.0 L (2-4) % Basophils % (Manual) 0.0 (0-1) % Neutrophils # (Manual) 5822 (5629-2643) /uL RBC Morphology Not Reportable Hypochromasia 3+ H Poikilocytosis 2+ H Anisocytosis 3+ H Microcytosis 2+ H Acanthocytes (Spur) 2+ Sodium 141 (137-145) mmol/L Potassium 2.7 L* (3.4-5.1) mmol/L Chloride 103 (98-107) mmol/L Carbon Dioxide 34 H (22-32) mmol/L BUN 38 H (9-20) mg/dL Creatinine 1.10 (0.66-1.25) mg/dL Estimated GFR > 60 (>60) mL/min BUN/Creatinine Ratio 34.5 H (6-22) Glucose 90 (80-110) mg/dL Calcium 7.5 L (8.4-10.2) mg/dL Magnesium 2.0 (1.6-2.3) mg/dL Total Bilirubin 0.5 (0.2-1.3) mg/dL AST 73 H (17-59) IU/L ALT 148 H (<50) IU/L Alkaline Phosphatase 116 (38-126) U/L Total Creatine Kinase 30 L (55-170) U/L CK-MB (CK-2) TNP CK-MB (CK-2) Rel Index TNP Troponin I 0.084 H (0.01-0.034) ng/mL Total Protein 5.1 L (6.3-8.2) g/dL Albumin 2.8 L (3.5-5.0) g/dL Globulin 2.3 (1.7-4.1) g/dL Albumin/Globulin Ratio 1.2 (1.0-2.8) Lipase 89 (23-300) U/L SARS-CoV-2 (PCR) Negative (Negative) Imaging Data Chest x-ray: Radiologist's Impression: [address] [address] XRay Report Signed Patient: Federico Pro MR#: [id number] : 1940 Acct:[id number] Age/Sex: 81 / M Date of Service: 02/20/22 Loc: ED Accession Number: [id number] ?? Procedure: XR chest 1V Ordering Provider: Katina Ocasio D.O. PROCEDURE:? XR CHEST 1V ? INDICATIONS:? chest pain ? TECHNIQUE:? One view of the chest was acquired.? ? COMPARISON:? [facility], CR, XR CHEST 2V, 12/28/2021, 14:50.? [facility], CR, XR CHEST 1V, 10/11/2021, 1:05. ? FINDINGS:? ? Surgical changes and devices:? None.? ? Lungs and pleura:? Mild lower lung opacities bilaterally.? Mild to moderate left pleural effusion.? Possible trace right pleural effusion. Chronic interstitial lung disease better seen on CT. ? Mediastinum:? Mediastinal contours appear normal.? Heart size is normal.? ? Bones and chest wall:? No suspicious bony lesions.? Overlying soft tissues appear unremarkable.? ? IMPRESSION:? Mild lower lung opacities likely atelectasis and fibrosis/scar, possible component of airspace disease such as aspiration.? Mild to moderate left pleural effusion.? Trace right pleural effusion.? Chronic interstitial lung disease better seen on CT.? ? Dictated by: Herminio Bradley M.D. on 02/20/2022 at 14:23 ? ? Approved by: Herminio Bradley M.D. on 02/20/2022 at 14:25?? ECG Data Attestation: I personally reviewed and interpreted this ECG as follows: Prior ECG tracings: available for review Interpretation: AFib with RVR, rate of 103 QRS of 90 QTC 466. Patient has prior EKG from 02/18/2022 which appears similar. MDM Narrative Medical decision making narrative: This is an 81-year-old male with hypokalemia who was seen 2 days ago for the same issue. Attempted to place him for observation replacement at that time, patient was reluctant as well as primary service. He received oral and IV potassium chloride he had improvement at 23.4 was asked to take potassium supplementation with his torsemide. Patient actually stopped his torsemide has not had any potassium supplementation but is also on rituximab which can cause hypokalemia as well. Patient had outpatient lab drawn today was found to be low again at 2.7 range so improved from his 1.9 several days ago. Patient has been asymptomatic on both visits. No acute EKG changes he has been in AFib with RVR bouncing from 90s to 130s. Patient accepted by Dr. Simons Discharge Plan Departure Patient Disposition: Admitted as Observation Clinical Impression: Hypokalemia, Atrial fibrillation with rapid ventricular response Admit Date/Time: 02/20/22 16:40 Admit Provider: Brian Simons
--- NOTE | 2022-02-20 17:40 | PC.NURSE ---
DR Ocasio aware of elevated HR and Floor RN. pt continues w Afib at baseline and is asymptomatic. Per Dr Ocasio pt ok for the floor at this time.
[2022-02-20] MEDS: METOPROLOL IR 25 MG TABLET 12.5 MG PO (18:54)
[2022-02-20 20:14] LABS: HEMOLYSIS < 15 (0-50); Potassium 2.8 mmol/L (3.4-5.1)
--- NOTE | 2022-02-20 20:41 | P.HP_ITS ---
History of Present Illness History of Present Illness Date Patient Seen: 02/20/22 Time Patient Seen: 20:41 Chief complaint: f/u potassium Narrative: 81-year-old male who normally sees Dr. 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 This has produce some significant hypokalemia. Patient received parental on oral supplementation in the ER on the 18 of February and return for recheck again today the and is admitted because of persistent hypokalemia Patient also has chronic atrial fibrillation had issues with rapid ventricular response although is borderline controlled currently. Also recent admission for congestive heart failure and anemia. He continues to be chronically anticoagulated with a direct oral anticoagulant because of the atrial fibrillation. Patient History Medical History (Updated 02/20/22 @ 20:58 by Brian Simons MD) Atrial fibrillation Atrial flutter Barretts esophagus CHF (congestive heart failure) Chronic atrial fibrillation Chronic cough Chronic heart failure with preserved ejection fraction Degenerative arthritis Eosinophilia GERD (gastroesophageal reflux disease) GI bleed History of cardioversion Iron deficiency anemia Mixed hyperlipidemia Pulmonary fibrosis Spinal stenosis of lumbar region with neurogenic claudication Thrombocytopenia Thrombotic thrombocytopenic purpura (TTP) Surgical History History of coronary angioplasty with insertion of stent Hx of cholecystectomy Hx of tonsillectomy Family & Social History Social History: household members spouse Prior Living Arrangements House Safety & Behavioral: Feels Safe in Current Yes Environment Been Physically Hurt or No Threatened By a Person Tobacco & Substance use: Smoking Status Never smoker alcohol intake current alcohol intake frequency holiday/special occasion Substance Use Type does not use Meds Home Medications and Allergies Home Medications Medication Instructions Recorded Confirmed Type atorvastatin 40 mg tablet 40 mg PO DAILY 12/02/20 02/20/22 History metoprolol succinate 25 mg 12.5 mg PO BID 12/28/21 02/20/22 History tablet,extended release 24 hr pantoprazole 40 mg tablet,delayed 40 mg PO 0700,2100 #180 tabs 01/02/22 02/20/22 Rx release torsemide 20 mg tablet 20 mg PO DAILY #30 tabs 01/02/22 02/20/22 Rx rivaroxaban 10 mg tablet (Xarelto) 20 mg PO DAILY 01/28/22 02/20/22 History potassium chloride 20 mEq oral 20 meq PO DAILY #5 ea 02/18/22 02/20/22 Rx packet prednisone 30 mg PO DAILY 02/20/22 02/20/22 History sulfamethoxazole 800 See Rx Instructions .Route .COMPLEX 02/20/22 02/20/22 History mg-trimethoprim 160 mg tablet (Bactrim DS) Allergies Allergy/AdvReac Type Severity Reaction Status Date / Time No Known Drug Allergies Allergy Verified 02/18/22 09:16 Review of Systems Review of Systems ROS: Yes All systems reviewed with the patient and are negative except as otherwise documented Exam Vital Signs (past 8 hours): - 02/20/22 13:37 02/20/22 17:02 02/20/22 14:01 Temperature 97.3 F L Pulse Rate 111 H 127 H 89 Respiratory Rate 20 Blood Pressure 138/65 Pulse Oximetry 99 98 Oxygen Delivery Method Room Air Oxygen Flow Rate 02/20/22 14:30 02/20/22 15:00 02/20/22 15:30 Temperature Pulse Rate 90 106 H 95 H Respiratory Rate 14 17 14 Blood Pressure Pulse Oximetry 99 99 99 Oxygen Delivery Method Oxygen Flow Rate 02/20/22 16:00 02/20/22 16:30 02/20/22 17:00 Temperature 98 F Pulse Rate 95 H 109 H 129 H Respiratory Rate 17 18 20 Blood Pressure 153/73 H 153/73 H Pulse Oximetry 100 99 100 Oxygen Delivery Method Oxygen Flow Rate 02/20/22 17:30 02/20/22 18:00 Temperature 97.6 F Pulse Rate 133 H 96 H Respiratory Rate 21 17 Blood Pressure 119/90 Pulse Oximetry 99 97 Oxygen Delivery Method Oxygen Flow Rate 0 Oxygen Delivery Method Room Air Oxygen Flow Rate 0 Narrative Exam Narrative: Elderly male who looks somewhat younger than stated age lying in hospital bed in no obvious distress HEENT unremarkable Lungs-clear good breath sounds Heart-irregularly regular minimally tachycardic no murmur Abdomen-benign Extremities-no cyanosis clubbing or edema Objective Labs Result Diagrams: 02/20/22 13:54 02/20/22 20:00 Labs: Laboratory Results - last 24 hr 02/20/22 02/20/22 02/20/22 13:54 13:54 14:11 WBC 7.1 RBC 3.76 L Hgb 10.4 L Hct 32.4 L MCV 86.2 MCH 27.7 MCHC 32.2 RDW 19.8 H Plt Count 68 L Neut % (Auto) Not Reportable Lymph % (Auto) Not Reportable [place] % (Auto) Not Reportable Eos % (Auto) Not Reportable Baso % (Auto) Not Reportable Lymph # (Auto) Not Reportable [place] # (Auto) Not Reportable Baso # (Auto) Not Reportable Total Counted 100 Seg Neutrophils % 82.0 H Band Neutrophils % 0.0 L Lymphocytes % (Manual) 14.0 L Monocytes % (Manual) 4.0 Eosinophils % (Manual) 0.0 L Basophils % (Manual) 0.0 Neutrophils # (Manual) 5822 RBC Morphology Not Reportable Hypochromasia 3+ H Poikilocytosis 2+ H Anisocytosis 3+ H Microcytosis 2+ H Acanthocytes (Spur) 2+ Sodium 141 Potassium 2.7 L* Chloride 103 Carbon Dioxide 34 H BUN 38 H Creatinine 1.10 Estimated GFR > 60 BUN/Creatinine Ratio 34.5 H Glucose 90 Calcium 7.5 L Magnesium 2.0 Total Bilirubin 0.5 AST 73 H ALT 148 H Alkaline Phosphatase 116 Total Creatine Kinase 30 L CK-MB (CK-2) TNP CK-MB (CK-2) Rel Index TNP Troponin I 0.084 H Total Protein 5.1 L Albumin 2.8 L Globulin 2.3 Albumin/Globulin Ratio 1.2 Lipase 89 SARS-CoV-2 (PCR) Negative 02/20/22 20:00 WBC RBC Hgb Hct MCV MCH MCHC RDW Plt Count Neut % (Auto) Lymph % (Auto) [place] % (Auto) Eos % (Auto) Baso % (Auto) Lymph # (Auto) [place] # (Auto) Baso # (Auto) Total Counted Seg Neutrophils % Band Neutrophils % Lymphocytes % (Manual) Monocytes % (Manual) Eosinophils % (Manual) Basophils % (Manual) Neutrophils # (Manual) RBC Morphology Hypochromasia Poikilocytosis Anisocytosis Microcytosis Acanthocytes (Spur) Sodium Potassium 2.8 L Chloride Carbon Dioxide BUN Creatinine Estimated GFR BUN/Creatinine Ratio Glucose Calcium Magnesium Total Bilirubin AST ALT Alkaline Phosphatase Total Creatine Kinase CK-MB (CK-2) CK-MB (CK-2) Rel Index Troponin I Total Protein Albumin Globulin Albumin/Globulin Ratio Lipase SARS-CoV-2 (PCR) Assessment & Plan Assessment & Plan narrative: 1. Persistent hypokalemia-patient's hypokalemia likely secondary to ongoing use of torsemide for his chronic congestive heart failure without the santos pplementation of potassium. Somewhere along the way the potassium got dropped. His magnesium has been checked and is okay so that is not a contributing factor. Rituximab I suppose could be a contributing factor although not listed in the usual adverse effects. At this point will continue replaced parenterally and orally and recheck numbers. If he comes back up and stays up to a normal or near normal range he can probably be discharged home 2. Atrial fibrillation-patient with borderline controlled response. I am going to give him additional doses of oral metoprolol for now and monitor his numbers with telemetry 3. TTP-patient's CBC especially his platelet count is about where it has been. Continue with his prednisone as per local Hematology and Hematology at the [facility] where he spent quite some time hospitalized in December. Patient also receives Bactrim 3 times a week if he still here on Tuesday will need to have a dose of that as well 4. History of chronic heart failure with preserved ejection fraction-no active symptoms at this time. Once we get his potassium stabilized he can resume torsemide but I am going to hold off on that for now, given lack of active symptoms although will monitor carefully 5. Pulmonary fibrosis-this is more of a diagnosis based on imaging rather than clinical picture. At some point obtaining PFTs would be entirely appropriate 6. VTE prophylaxis-patient not a candidate for any sort of heparin given his platelet disorder. Continue with SCDs 7. Code status-patient requests do not resuscitate in the event of a sudden cardiac or respiratory arrest which is consistent with his prior requests as well COVID-19 COVID-19 status: Negative Result date/Date tested (Pos, Neg/Pending): 02/20/22 Quality VTE Deep Vein Thrombosis/Pulmonary Embolism Present on Admission: No
[2022-02-20] MEDS: PANTOPRAZOLE DR 40 MG TABLET PO (20:44)
[2022-02-20] MEDS: METOPROLOL ER 25 MG TABLET 12.5 MG PO (20:46)
[2022-02-21] MEDS: POTASSIUM CHLORIDE IN WATER 10 MEQ/100 ML PIGGYBACK 100 MEQ IV ×4 (00:13→05:00)
[2022-02-21 04:26] VITALS: BP 122/86; PULSE 67; RESP 16; TEMP 36.4; O2SAT 99
[2022-02-21 05:49] LABS: BUN Creatinine Ratio 32.8 (6-22); Blood Urea Nitrogen 40 mg/dL (9-20); Calcium 7.8 mg/dL (8.4-10.2); Carbon Dioxide 34 mmol/L (22-32); Chloride 106 mmol/L (98-107); Estimated Glomerular Filt Rate 60 mL/min (>60); Glucose 111 mg/dL (80-110); HEMOLYSIS < 15 (0-50); Potassium 4.4 mmol/L (3.4-5.1); Sodium 141 mmol/L (137-145)
[2022-02-21] MEDS: PANTOPRAZOLE DR 40 MG TABLET PO (06:04)
[2022-02-21 07:43] VITALS: BP 125/91; PULSE 70; RESP 16; TEMP 36.2; O2SAT 100
[2022-02-21 08:00] VITALS: O2SAT 100
[2022-02-21 08:47] VITALS: BP 125/91; PULSE 70
[2022-02-21] MEDS: METOPROLOL ER 25 MG TABLET 12.5 MG PO (08:47)
[2022-02-21] MEDS: POTASSIUM CHLORIDE 20 MEQ TAB 40 MEQ PO (08:47)
[2022-02-21] MEDS: RIVAROXABAN 10 MG TABLET 20 MG PO (08:48)
[2022-02-21] MEDS: predniSONE 20 MG TABLET 30 MG PO (08:48)
[2022-02-21] MEDS: ATORVASTATIN 20 MG TABLET 40 MG PO (08:48)
--- NOTE | 2022-02-21 09:44 | PM.DS.1 ---
History of Present Illness History of Present Illness Date Patient Seen: 02/21/22 Time Patient Seen: 09:45 Chief complaint: f/u potassium Narrative: 81-year-old male who normally sees Dr. 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 This has produce some significant hypokalemia. Patient received parental on oral supplementation in the ER on the 18 of February and return for recheck again today the and is admitted because of persistent hypokalemia Patient also has chronic atrial fibrillation had issues with rapid ventricular response although is borderline controlled currently. Also recent admission for congestive heart failure and anemia. He continues to be chronically anticoagulated with a direct oral anticoagulant because of the atrial fibrillation. Discharge Providers Provider Date of admission: 02/20/22 16:40 Discharge Date: 02/21/22 Primary care physician: Willy Pineda MD Discharge provider: Brian Simons MD Summary Hospital Course Discharge Diagnosis: 1. Acute hypokalemia 2. Atrial fibrillation with rapid ventricular response 3. Acquired thrombotic thrombocytopenic purpura 4. Chronic heart failure with preserved ejection fraction 5. Chronic atrial fibrillation 6. Mixed hyperlipidemia 7. Pulmonary fibrosis 8. Thrombocytopenia Hospital Course: As above patient was admitted to the hospital where he received both oral and parental potassium supplementation. Potassium stabilized and was much improved upon discharge. Patient had some issues with heart rate control during the initial portion of his hospitalization but as his potassium improved it seems like that improved his heart rate control as well Patient had no issues with heart failure and will resume his diuretic therapy upon discharge Exam Vital Signs (past 8 hours): - 02/21/22 04:26 02/21/22 07:43 02/21/22 08:47 Temperature 97.5 F L 97.2 F L Pulse Rate 67 70 70 Respiratory Rate 16 16 Blood Pressure 122/86 125/91 H 125/91 H Pulse Oximetry 99 100 Oxygen Flow Rate 0 0 Oxygen Delivery Method Room Air Oxygen Flow Rate 0 Objective Labs Result Diagrams: 02/20/22 13:54 02/21/22 05:25 Labs: Laboratory Results - last 24 hr 02/20/22 02/20/22 02/20/22 13:54 13:54 14:11 WBC 7.1 RBC 3.76 L Hgb 10.4 L Hct 32.4 L MCV 86.2 MCH 27.7 MCHC 32.2 RDW 19.8 H Plt Count 68 L Neut % (Auto) Not Reportable Lymph % (Auto) Not Reportable [place] % (Auto) Not Reportable Eos % (Auto) Not Reportable Baso % (Auto) Not Reportable Lymph # (Auto) Not Reportable [place] # (Auto) Not Reportable Baso # (Auto) Not Reportable Total Counted 100 Seg Neutrophils % 82.0 H Band Neutrophils % 0.0 L Lymphocytes % (Manual) 14.0 L Monocytes % (Manual) 4.0 Eosinophils % (Manual) 0.0 L Basophils % (Manual) 0.0 Neutrophils # (Manual) 5822 RBC Morphology Not Reportable Hypochromasia 3+ H Poikilocytosis 2+ H Anisocytosis 3+ H Microcytosis 2+ H Acanthocytes (Spur) 2+ Sodium 141 Potassium 2.7 L* Chloride 103 Carbon Dioxide 34 H BUN 38 H Creatinine 1.10 Estimated GFR > 60 BUN/Creatinine Ratio 34.5 H Glucose 90 Calcium 7.5 L Magnesium 2.0 Total Bilirubin 0.5 AST 73 H ALT 148 H Alkaline Phosphatase 116 Total Creatine Kinase 30 L CK-MB (CK-2) TNP CK-MB (CK-2) Rel Index TNP Troponin I 0.084 H Total Protein 5.1 L Albumin 2.8 L Globulin 2.3 Albumin/Globulin Ratio 1.2 Lipase 89 SARS-CoV-2 (PCR) Negative 02/20/22 02/21/22 20:00 05:25 WBC RBC Hgb Hct MCV MCH MCHC RDW Plt Count Neut % (Auto) Lymph % (Auto) [place] % (Auto) Eos % (Auto) Baso % (Auto) Lymph # (Auto) [place] # (Auto) Baso # (Auto) Total Counted Seg Neutrophils % Band Neutrophils % Lymphocytes % (Manual) Monocytes % (Manual) Eosinophils % (Manual) Basophils % (Manual) Neutrophils # (Manual) RBC Morphology Hypochromasia Poikilocytosis Anisocytosis Microcytosis Acanthocytes (Spur) Sodium 141 Potassium 2.8 L 4.4 D Chloride 106 Carbon Dioxide 34 H BUN 40 H Creatinine 1.22 Estimated GFR 60 BUN/Creatinine Ratio 32.8 H Glucose 111 H Calcium 7.8 L Magnesium 2.0 Total Bilirubin AST ALT Alkaline Phosphatase Total Creatine Kinase CK-MB (CK-2) CK-MB (CK-2) Rel Index Troponin I Total Protein Albumin Globulin Albumin/Globulin Ratio Lipase SARS-CoV-2 (PCR) [facility] Medical History Atrial fibrillation Atrial flutter Barretts esophagus CHF (congestive heart failure) Chronic atrial fibrillation Chronic cough Chronic heart failure with preserved ejection fraction Degenerative arthritis Eosinophilia GERD (gastroesophageal reflux disease) GI bleed History of cardioversion Iron deficiency anemia Mixed hyperlipidemia Pulmonary fibrosis Spinal stenosis of lumbar region with neurogenic claudication Thrombocytopenia Thrombotic thrombocytopenic purpura (TTP) Surgical History History of coronary angioplasty with insertion of stent Hx of cholecystectomy Hx of tonsillectomy Social History household members: spouse Smoking Status: Never smoker alcohol intake: current Discharge Assessment & Plan Assessment and Plan Plan of Treatment: Patient to be discharged on all of his usual medications. He will resume his torsemide but will also resume potassium which is somehow inadvertently been left off his list. He will resume at higher dose and need to have his potassium checked within the next 48 hours to ensure stability. Patient will continue with his Tuesday dosing of Bactrim for infection prevention in the setting of his autoimmune disorder as well as continue with prednisone. Whether not he continues on his other meds for his TTP will be as per Hematology Patient will need a early follow-up with his primary care physician Dr. Pineda at [facility] Patient will also need early follow-up with Dr. Aguilar in Oncology regarding ongoing treatment of his TTP, especially concerning his ongoing use of rituximab Discharge Plan Discharge Plan Patient Disposition: Home Discharge orders & Medications Prescriptions: New potassium chloride 20 mEq tablet,ER particles/crystals 40 meq PO BID Qty: 180 3RF Continued Xarelto 10 mg Tablet 20 mg PO DAILY Rx Instructions: for 35 days sulfamethoxazole-trimethoprim [Bactrim DS] 800-160 mg Tablet See Rx Instructions .ROUTE .COMPLEX Rx Instructions: 1 tab orally every Tuesday, Tue, Tuesday prednisone 30 mg PO DAILY atorvastatin 40 mg Tablet 40 mg PO DAILY Rx Instructions: in evening metoprolol succinate 25 mg tablet extended release 24 hr 12.5 mg PO BID Label Comments: Take 1/2 tablet by mouth twice a day for blood pressure control pantoprazole 40 mg Tablet,Delayed Release (Dr/Ec) 40 mg PO 0700,2100 Qty: 180 1RF torsemide 20 mg tablet 20 mg PO DAILY Qty: 30 1RF Discontinued potassium chloride 20 mEq packet 20 meq PO DAILY Qty: 5 1RF Follow up/Referrals: Brian Simons MD [Physician] - (Not necessary) Willy Pineda MD [Primary Care Provider] - 3-5 Days Pillo Aguilar MD [Physician] - 3-5 Days Other Ambulatory Orders: Basic Metabolic Panel (Routine) Timeframe: 2 Days Facility: [facility] - Location: Laboratory Ordered By: Brian Simons Magnesium (Routine) Timeframe: 2 Days Facility: [facility] - Location: Laboratory Ordered By: Brian Simons Discharge Health Status Multidrug resistant organism: No MDRO Diet/Activity/Treatments Diet: Diet as Tolerated Discharge Data Primary Care Provider: Willy Pineda Attending Provider: Brian Simons Quality VTE Deep Vein Thrombosis/Pulmonary Embolism Present on Admission: No
--- NOTE | 2022-02-21 10:50 | PC.NURSE ---
Pt dressed and ready for discharge home to be transported via pov by son. Pt IV removed and tele removed. Pt does not have any prescriptions at the pharmacy and no belongings kept in the safe. Discussed discharge instructions and education with pt and answered questions. Provided pt education about stroke signs and symptoms,CHF, Atrial fibrillation, and hypokalemia. Pt taken out with all belongings by [employer] via wheel chair.
== END 2022-02-21 10:44 | disposition home or self-care (01) ==
LOC: ED 16:38 → AC 16:40
PROVIDERS: Admitting Provider Internal Medicine; Emergency Provider Emergency Medicine; PCP Family Medicine; Referring Provider Emergency Medicine; Visit Provider Internal Medicine
DX: E87.6 Hypokalemia (principal); D50.9 Iron deficiency anemia, unspecified; J84.9 Interstitial pulmonary disease, unspecified; I50.30 Unspecified diastolic (congestive) heart failure; I48.20 Chronic atrial fibrillation, unspecified; D69.3 Immune thrombocytopenic purpura; D69.6 Thrombocytopenia, unspecified; J84.10 Pulmonary fibrosis, unspecified; E78.2 Mixed hyperlipidemia; Z79.01 Long term (current) use of anticoagulants; Z20.822 Contact with and (suspected) exposure to COVID-19; M31.19 Other thrombotic microangiopathy
CPT/HCPCS: 36415; 71045; 80048; 80053; 82550; 83690; 83735; 84132; 84484; 85007; 85025; 87635; 93005; 96365; 96366; 99217; 99219; 99284; C9803; G0378

== ENCOUNTER → 2022-07-12 15:19 | Outpatient (CLI) | payer OTHER, SELFPAY ==
[2021-10-11 05:10] VITALS: PULSE 52; RESP 16; O2SAT 98
[2022-02-20 17:34] VITALS: BMI 26.7
[2022-07-12 15:49] LABS: Add Manual Diff / Slide Review NO; Basophils Absolute Auto 100 /uL (0-100); Basophils Percent Auto 0.7 % (0-2); Eosinophils Absolute Auto 400 /uL (0-450); Eosinophils Percent Auto 4.6 % (2-4); Hemoglobin 11.6 g/dL (13.5-17.5); Lymphocytes Absolute Auto 1100 /uL (1100-4500); Mean Corpuscular HGB Conc 30.6 % (30-36); Mean Corpuscular Hemoglobin 21.8 PG (26-34); Mean Corpuscular Volume 71.4 fL (80-100); Monocytes Absolute Auto 700 /uL (0-900); Monocytes Percent Auto 8.9 % (3-14); Neutrophils Absolute Auto 5600 /uL (1500-7000); Neutrophils Percent Auto 71.8 % (50-75); Platelet Count 252 X10^3/uL (150-400); Red Blood Cell Count 5.33 X10^6/uL (4.5-5.9); Red Cell Distribution Width 20.6 % (11.6-14.8); White Blood Cell Count 7.8 X10^3/uL (4.5-11.0)
[2022-07-12 15:55] LABS: Reticulocyte Count, Percent 1.1 % (0.9-2.6)
[2022-07-12 16:11] LABS: Alanine Aminotransferase 15 IU/L (<50); Albumin 3.6 g/dL (3.5-5.0); Alkaline Phosphatase 111 U/L (38-126); Aspartate Aminotransferase 19 IU/L (17-59); Bilirubin Total 0.5 mg/dL (0.2-1.3); Blood Urea Nitrogen 19 mg/dL (9-20); Calcium 8.6 mg/dL (8.4-10.2); Carbon Dioxide 22 mmol/L (22-32); Chloride 112 mmol/L (98-107); Estimated Glomerular Filt Rate 48 mL/min (>60); Globulin 3.7 g/dL (1.7-4.1); Glucose 91 mg/dL (80-110); HEMOLYSIS < 15 (0-50); Lactate Dehydrogenase 157 U/L (120-246); Potassium 4.7 mmol/L (3.4-5.1); Sodium 143 mmol/L (137-145); Total Protein 7.3 g/dL (6.3-8.2)
[2022-07-12 16:18] LABS: Anisocytosis 2+; Burr Cells 1+; Microcytosis 2+; Poikilocytosis 2+
[2022-07-12 16:19] LABS: Hypochromasia 2+
[2022-07-12 16:35] LABS: HEMOLYSIS < 15 (0-50); Iron 25 ug/dL (49-181)
[2022-07-12 16:46] LABS: Ferritin 22 ng/mL (18-464); Percent Iron Saturation 8 % (20-50); Total Iron Binding Capacity 328 ug/dL (261-462); Transferrin 260 mg/dL (206-381)
[2022-07-14 06:06] LABS: Haptoglobin 155 mg/dL (34-355)
== END ==
PROVIDERS: PCP Family Medicine; Referring Provider Internal Medicine Hematology & Oncology; Visit Provider Internal Medicine Hematology & Oncology
DX: M31.19 Other thrombotic microangiopathy (principal)
CPT/HCPCS: 36415; 80053; 82728; 83010; 83540; 83550; 83615; 85025; 85045

== ENCOUNTER 2022-09-18 08:35 | Emergency (ER) | payer OTHER, SELFPAY ==
[2021-10-11 05:10] VITALS: PULSE 52; RESP 16; O2SAT 98
[2022-02-20 17:34] VITALS: BMI 26.7
[2022-09-18] VITALS (13 sets, daily range): BP systolic 97–141; BP diastolic 60–102; PULSE 79–111; RESP 16; TEMP 36.7; O2SAT 87–100; BMI 22.7
--- NOTE | 2022-09-18 08:51 | DI.US.S_ITS ---
PROCEDURE: US RENAL COMPLETE INDICATIONS: GROSS HEMATURIA TECHNIQUE: Real-time scanning was performed of the kidneys and bladder, with image documentation. COMPARISON: None. FINDINGS: Kidneys: Kidneys are normal in size. Right kidney measures 9.6 cm long; left kidney measures 9.9 cm long. Right renal cortical thickness is 1.4 cm; left renal cortical thickness is 1.5 cm. Renal cortical echotexture is normal. No hydronephrosis or nephrolithiasis. No suspicious solid mass lesions. Simple 1.6 cm left renal cyst Bladder: Distended bladder with dependent debris and possible calcification. Miscellaneous: No free pelvic fluid. IMPRESSION: Distended urinary bladder with dependent debris and possible internal bladder calculi. Consider follow-up CT Approved by: Jonel Pantoja M.D. on 09/18/2022 at 9:19
--- NOTE | 2022-09-18 08:51 | ED.MALEGU ---
HPI - Male Genitourinary General Chief complaint: Urogenital-Male Stated complaint: Hematuria, tired Time Seen by Provider: 09/18/22 08:38 Source: EMS Mode of arrival: EMS History of Present Illness HPI Narrative: This is a 81-year-old male with history of acquired TTP, eosinophilia, AFib, CHF, iron deficiency anemia, aortic stenosis and undifferentiated interstitial lung disease who presents with hematuria. Patient states he is had dark bloody urine for 3 days he is noted little bit decrease in output that is states it is a little bit harder to urinate. He has not had any pain. He denies fevers, no chills, no chest pain or shortness of breath. No nausea or vomiting. Denies any not diarrhea or constipation. No black or bloody stools. No other unexpected bleeding. Patient states he is not had this issue in the past. He denies dysuria, urgency but has had some frequency. He states he feels a little bit more fatigued but otherwise no other changes. He states his prompted him to come today. Patient states he is being worked up for losing blood internally and is supposed to have colonoscopy in September or November. He has had a plasma transferred at [facility] the past year and a half. He states oncology has been following his labs and has not required any other interventions. He states he is on a statin, folic acid, Eliquis and potassium replacement. He states he would a cholecystectomy a year ago. No known drug allergies. Denies tobacco, alcohol or illicit. Dr. Pineda is his primary care. Dr. Trejo as his oncologist locally. He has never seen a urologist. Related Data Home Medications Medication Instructions Recorded Confirmed atorvastatin 40 mg tablet 40 mg PO DAILY 12/02/20 07/22/22 metoprolol succinate 25 mg 12.5 mg PO BID 12/28/21 07/22/22 tablet,extended release 24 hr sulfamethoxazole 800 See Rx Instructions .Route .COMPLEX 02/20/22 07/22/22 mg-trimethoprim 160 mg tablet (Bactrim DS) apixaban 2.5 mg tablet (Eliquis) 2.5 mg PO BID 04/19/22 07/22/22 folic acid 1 mg tablet 1 mg PO DAILY 04/19/22 07/22/22 Previous Rx's Medication Instructions Recorded pantoprazole 40 mg tablet,delayed 40 mg PO 0700,2100 #180 tabs 01/02/22 release potassium chloride 20 mEq 40 meq PO BID #180 tabs 02/21/22 tablet,extended release(part/cryst) peg 3350-electrolytes 236 240 ml PO Q10M #4,000 mL 08/26/22 gram-22.74 gram-6.74 gram-5.86 gram solution (Golytely) sulfamethoxazole 800 1 tab PO BID #14 tabs 09/18/22 mg-trimethoprim 160 mg tablet (Bactrim DS) tamsulosin 0.4 mg capsule (Flomax) 0.4 mg PO DAILY #7 caps 09/18/22 Allergies Allergy/AdvReac Type Severity Reaction Status Date / Time No Known Drug Allergies Allergy Verified 09/18/22 08:45 Review of Systems Review of Systems ROS Unobtainable: All systems reviewed & are unremarkable except as noted in HPI and below Patient History Medical History Atrial fibrillation Atrial flutter Barretts esophagus CHF (congestive heart failure) Chronic atrial fibrillation Chronic cough Chronic heart failure with preserved ejection fraction Degenerative arthritis Eosinophilia GERD (gastroesophageal reflux disease) GI bleed History of cardioversion Iron deficiency anemia Mixed hyperlipidemia Pulmonary fibrosis Spinal stenosis of lumbar region with neurogenic claudication Thrombocytopenia Thrombotic thrombocytopenic purpura (TTP) Surgical History History of coronary angioplasty with insertion of stent Hx of cholecystectomy Hx of tonsillectomy Social History household members: spouse Smoking Status: Never smoker alcohol intake: current Smoking Status: Never smoker alcohol intake frequency: holidays/special occasions only Substance Use Type: does not use Exam Narrative Exam Narrative: GENERAL: Alert and oriented x three, elderly male in mild distress. HEENT: Head normocephalic, atraumatic, EOMI, pupils reactive, face symmetric, moist mucous membranes NECK: Supple, full range of motion CARDIOVASCULAR: Regular rate and rhythm without murmurs, rubs or gallops. RESPIRATORY: Breath sounds equal bilaterally, no wheezes rales or rhonchi. ABDOMEN: Soft, nontender. Normoactive bowel sounds all 4 quadrants. No guarding or rebound, rigidity, no mass : No CVA tenderness. Male: normal external examination, no penile discharge or lesions, testicles non-tender, cremasteric reflex intact, no inguinal hernias noted. Patient has a container of urine in the room that is dark appears bloody but without clot. EXTREMITIES: Normal range of motion, no clubbing or edema. Neurovascularly intact NEUROLOGICAL: Cranial nerves II through XII grossly intact. Moving all extremities SKIN: Warm, dry, no petechiae, no rashes or lesions. Initial Vital Signs Initial Vital Signs: Vital Signs Pulse Rate 94 H 09/18/22 08:40 Blood Pressure 124/82 09/18/22 08:40 Pulse Oximetry 100 09/18/22 08:40 Course Orders Ordered: Discontinued Medications Lidocaine HCl (Lidocaine 2% (Glydo) 6 Ml Gel) 6 ml TOP NOW ONE Stop: 09/18/22 09:57 Last Admin: 09/18/22 10:20 Dose: 6 ml Documented By: ELLIS Tamsulosin HCl (Tamsulosin 0.4 Mg Capsule) 0.4 mg PO NOW ONE Stop: 09/18/22 11:10 Last Admin: 09/18/22 12:32 Dose: 0.4 mg Documented By: ELLIS Trimethoprim/Sulfamethoxazole (Trimeth/Sulfa 160/800 (Ds) Tablet) 1 tab PO NOW ONE Stop: 09/18/22 10:32 Last Admin: 09/18/22 11:09 Dose: 1 tab Documented By: ELLIS Trimethoprim/Sulfamethoxazole (Trimeth/Sulfa 160/800 Prepack) 1 bottle MISC SEEINSTR ONE Stop: 09/18/22 11:10 Last Admin: 09/18/22 13:53 Dose: 1 bottle Documented By: ELLIS Vital Signs Vital signs: Vital Signs - 8 hr 09/18/22 11:00 09/18/22 11:00 09/18/22 11:30 Pulse Rate 106 H 79 Blood Pressure 130/94 H Pulse Oximetry 98 87 L Oxygen Delivery Method 09/18/22 12:00 09/18/22 12:00 09/18/22 13:36 Pulse Rate 111 H 97 H Blood Pressure 141/102 H 121/63 Pulse Oximetry 100 100 Oxygen Delivery Method Room Air MDM - Male Genitourinary Lab Data 09/18/22 08:54 09/18/22 08:54 Labs: Lab Results 09/18/22 09/18/22 09/18/22 Range/Units 08:54 08:54 08:54 WBC 6.4 (4.5-11.0) X10^3/uL RBC 4.97 (4.5-5.9) X10^6/uL Hgb 10.7 L (13.5-17.5) g/dL Hct 34.9 L (41-53) % MCV 70.2 L (80-100) fL MCH 21.6 L (26-34) PG MCHC 30.8 (30-36) % RDW 20.7 H (11.6-14.8) % Plt Count 212 (150-400) X10^3/uL Neut % (Auto) 63.9 (50-75) % Lymph % (Auto) 17.8 L (25-40) % [place] % (Auto) 11.0 (3-14) % Eos % (Auto) 6.9 H (2-4) % Baso % (Auto) 0.4 (0-2) % Neut # (Auto) 4100 (4241-6172) /uL Lymph # (Auto) 1100 (5400-7629) /uL [place] # (Auto) 700 (0-900) /uL Eos # (Auto) 400 (0-450) /uL Baso # (Auto) 0 (0-100) /uL Platelet Estimate Adequate on smear RBC Morphology See below Poikilocytosis 1+ H Anisocytosis 1+ H Microcytosis 1+ H Connor Cells 1+ H PT 21.0 H (10.1-12.7) SECONDS INR 1.8 H (0.9-1.3) APTT 36 (26-36) SECONDS Sodium 137 (137-145) mmol/L Potassium 4.0 (3.4-5.1) mmol/L Chloride 105 (98-107) mmol/L Carbon Dioxide 24 (22-32) mmol/L BUN 17 (9-20) mg/dL Creatinine 1.14 (0.66-1.25) mg/dL Estimated GFR > 60 (>60) mL/min BUN/Creatinine Ratio 14.9 (6-22) Glucose 80 (80-110) mg/dL Calcium 8.0 L (8.4-10.2) mg/dL Total Bilirubin 0.9 (0.2-1.3) mg/dL AST 27 (17-59) IU/L ALT 14 (<50) IU/L Alkaline Phosphatase 109 (38-126) U/L Total Protein 6.6 (6.3-8.2) g/dL Albumin 3.2 L (3.5-5.0) g/dL Globulin 3.4 (1.7-4.1) g/dL Albumin/Globulin Ratio 0.9 L (1.0-2.8) Lipase 50 (23-300) U/L Urine Color Urine Appearance Urine pH Ur Specific Tyler Urine Protein Urine Glucose (UA) Urine Ketones Urine Occult Blood Urine Nitrate Urine Bilirubin Urine Urobilinogen Ur Leukocyte Esterase Urine RBC (0-5/HPF) Urine WBC (0-5/HPF) Ur Squamous Epith Cells (0-5/HPF) Ur Transition Epith Cell (0-5/HPF) Urine Bacteria (None) Ur Culture Indicated? Blood Type Antibody Screen 09/18/22 09/18/22 Range/Units 09:02 09:24 WBC (4.5-11.0) X10^3/uL RBC (4.5-5.9) X10^6/uL Hgb (13.5-17.5) g/dL Hct (41-53) % MCV (80-100) fL MCH (26-34) PG MCHC (30-36) % RDW (11.6-14.8) % Plt Count (150-400) X10^3/uL Neut % (Auto) (50-75) % Lymph % (Auto) (25-40) % [place] % (Auto) (3-14) % Eos % (Auto) (2-4) % Baso % (Auto) (0-2) % Neut # (Auto) (9803-9385) /uL Lymph # (Auto) (6388-7805) /uL [place] # (Auto) (0-900) /uL Eos # (Auto) (0-450) /uL Baso # (Auto) (0-100) /uL Platelet Estimate RBC Morphology Poikilocytosis Anisocytosis Microcytosis Imperial Cells PT (10.1-12.7) SECONDS INR (0.9-1.3) APTT (26-36) SECONDS Sodium (137-145) mmol/L Potassium (3.4-5.1) mmol/L Chloride (98-107) mmol/L Carbon Dioxide (22-32) mmol/L BUN (9-20) mg/dL Creatinine (0.66-1.25) mg/dL Estimated GFR (>60) mL/min BUN/Creatinine Ratio (6-22) Glucose (80-110) mg/dL Calcium (8.4-10.2) mg/dL Total Bilirubin (0.2-1.3) mg/dL AST (17-59) IU/L ALT (<50) IU/L Alkaline Phosphatase (38-126) U/L Total Protein (6.3-8.2) g/dL Albumin (3.5-5.0) g/dL Globulin (1.7-4.1) g/dL Albumin/Globulin Ratio (1.0-2.8) Lipase (23-300) U/L Urine Color Red Urine Appearance Cloudy Urine pH TNP Ur Specific Tyler TNP Urine Protein TNP Urine Glucose (UA) TNP Urine Ketones TNP Urine Occult Blood TNP Urine Nitrate TNP Urine Bilirubin TNP Urine Urobilinogen TNP Ur Leukocyte Esterase TNP Urine RBC >100/hpf H (0-5/HPF) Urine WBC 30-100/hpf H (0-5/HPF) Ur Squamous Epith Cells 1-5 /hpf (0-5/HPF) Ur Transition Epith Cell 1-5/hpf (0-5/HPF) Urine Bacteria Many (>30) H (None) Ur Culture Indicated? Specimen cultured Blood Type B Positive Antibody Screen Negative Imaging Data renal us: Radiologist's Impression: [address] [address] Ultrasound Report Signed Patient: Federico Pro MR#: [id number] : 1940 Acct:[id number] Age/Sex: 81 / M Date of Service: 09/18/22 Loc: ED Accession Number: [id number] ?? Procedure: US renal complete Ordering Provider: Katina Ocasio D.O. PROCEDURE:? US RENAL COMPLETE ? INDICATIONS:? GROSS HEMATURIA ? TECHNIQUE:? Real-time scanning was performed of the kidneys and bladder, with image documentation.? ? COMPARISON:? None. ? FINDINGS:? ? Kidneys:? Kidneys are normal in size.? Right kidney measures 9.6 cm long; left kidney measures 9.9 cm long.? Right renal cortical thickness is 1.4 cm; left renal cortical thickness is 1.5 cm.? Renal cortical echotexture is normal.? No hydronephrosis or nephrolithiasis.? No suspicious solid mass lesions.? ? Simple 1.6 cm left renal cyst ? Bladder:? Distended bladder with dependent debris and possible calcification. ? Miscellaneous:? No free pelvic fluid.? ? IMPRESSION:? ? Distended urinary bladder with dependent debris and possible internal bladder calculi.? Consider follow-up CT ? ? ? Approved by: Jonel Pantoja M.D. on 09/18/2022 at 9:19? MDM Narrative Medical decision making narrative: This is an 81-year-old male who presents with complaint of hematuria. Patient states he is had 3 days of episode with very dark urine. No large clots he states it has been a little bit slower to drain when he tries to urinate but he denies any abdominal pain or discomfort, no flank or back pain. No fevers. He is not had similar issues in the past. He is on apixaban daily as anticoagulation. Patient hemoglobin is stable at 10.7 compared to the knife a August and was 11.5 on July 22. He does have a microcytic anemia. Normal platelets. INR is 1.8 with PTT at 36. Patient's electrolytes, renal function and LFTs are normal. Urine shows RBCs greater than 100, wbc's 32 150, many bacteria with 1-5 squamous epithelials suspect patient has bladder infection on top of being anticoagulated causing some irritation of the bladder and bleeding. Renal ultrasound was obtained to evaluate for obstruction or other changes and shows a distended bladder with some dependent debris and possible calcification, 1.6 cm simple left renal cyst and no free fluid. Patient had catheter placed he had a L out, irrigated until it was tinged pink with no persistent clots. Patient is now draining well based on the fact that he was not having any abdominal discomfort I suspect he is got some acute on chronic urinary retention. Started on antibiotics. Flomax and referred to follow up with Urology. We discussed return precautions. Patient also met with the social service worker as their vehicle has recently broken down, were able to set up can ambulance, patient also given some assistance to help apple picker his antibiotics on the way and he had transportation went [facility] normally that helps him get to his appointments. Is wheelchair-bound but does his own transfers at home. Patient is felt safe and appropriate for discharge he feels comfortable with this plan. Discharge Plan Departure Patient Disposition: Home Clinical Impression: Hematuria, Acute UTI, Acute urinary retention Instructions: How to Care for Your Mccormack Catheter -- Male, DI for Hematuria Activity Restrictions/Additional Instructions: Please follow-up with urology for recheck. You can also follow up with your primary care Dr. Pineda in the short term. Would recommend holding your Eliquis for the short term until bleeding has stopped, hold for the next 5 days. Take Bactrim DS twice daily x 7 days, then return to your usual dosing. Take Flomax once daily, you do have urinary retention today this is likely been there for some time. Prescription sent to [facility]. Please return for fevers, new abdominal back or flank pain, if your catheter is not draining, it appears blocked, or if you are having other new or concerning changes. Prescriptions: New tamsulosin [Flomax] 0.4 mg capsule 0.4 mg PO DAILY Qty: 7 0RF sulfamethoxazole-trimethoprim [Bactrim DS] 800-160 mg tablet 1 tab PO BID Qty: 14 0RF No Action peg 3350-electrolytes [Golytely] 236-22.74-6.74 -5.86 gram recon soln 240 ml PO Q10M Qty: 4000 0RF Rx Instructions: Take as directed by Physician folic acid 1 mg Tablet 1 mg PO DAILY Eliquis 2.5 mg Tablet 2.5 mg PO BID sulfamethoxazole-trimethoprim [Bactrim DS] 800-160 mg Tablet See Rx Instructions .ROUTE .COMPLEX Rx Instructions: 1 tab orally every Tuesday, Tue, Tuesday potassium chloride 20 mEq tablet,ER particles/crystals 40 meq PO BID Qty: 180 3RF atorvastatin 40 mg Tablet 40 mg PO DAILY Rx Instructions: in evening metoprolol succinate 25 mg tablet extended release 24 hr 12.5 mg PO BID Label Comments: Take 1/2 tablet by mouth twice a day for blood pressure control pantoprazole 40 mg Tablet,Delayed Release (Dr/Ec) 40 mg PO 0700,2100 Qty: 180 1RF Referrals: Lewis Perkins MD [Physician] - Willy Pineda MD [Primary Care Provider] - Stand Alone Forms: Patient Portal/API
[2022-09-18 09:06] LABS: Add Manual Diff / Slide Review NO; Basophils Absolute Auto 0 /uL (0-100); Basophils Percent Auto 0.4 % (0-2); Eosinophils Absolute Auto 400 /uL (0-450); Eosinophils Percent Auto 6.9 % (2-4); Hematocrit 34.9 % (41-53); Hemoglobin 10.7 g/dL (13.5-17.5); Lymphocytes Absolute Auto 1100 /uL (1100-4500); Lymphocytes Percent Auto 17.8 % (25-40); Mean Corpuscular HGB Conc 30.8 % (30-36); Mean Corpuscular Hemoglobin 21.6 PG (26-34); Mean Corpuscular Volume 70.2 fL (80-100); Monocytes Absolute Auto 700 /uL (0-900); Neutrophils Absolute Auto 4100 /uL (1500-7000); Neutrophils Percent Auto 63.9 % (50-75); Platelet Count 212 X10^3/uL (150-400); Red Blood Cell Count 4.97 X10^6/uL (4.5-5.9); Red Cell Distribution Width 20.7 % (11.6-14.8); White Blood Cell Count 6.4 X10^3/uL (4.5-11.0)
[2022-09-18 09:36] LABS: INR 1.8 (0.9-1.3)
[2022-09-18 09:39] LABS: PTT Partial Thromboplastin Tim 36 SECONDS (26-36)
[2022-09-18 09:40] LABS: Alanine Aminotransferase 14 IU/L (<50); Albumin 3.2 g/dL (3.5-5.0); Albumin Globulin Ratio 0.9 (1.0-2.8); Alkaline Phosphatase 109 U/L (38-126); Aspartate Aminotransferase 27 IU/L (17-59); BUN Creatinine Ratio 14.9 (6-22); Bilirubin Total 0.9 mg/dL (0.2-1.3); Blood Urea Nitrogen 17 mg/dL (9-20); Carbon Dioxide 24 mmol/L (22-32); Chloride 105 mmol/L (98-107); Estimated Glomerular Filt Rate > 60 mL/min (>60); Globulin 3.4 g/dL (1.7-4.1); Glucose 80 mg/dL (80-110); HEMOLYSIS < 15 (0-50); Lipase 50 U/L (23-300); Sodium 137 mmol/L (137-145); Total Protein 6.6 g/dL (6.3-8.2)
[2022-09-18 10:08] LABS: Appearance Urine UA CLOUDY; Color Urine UA RED; RBC Urine >100/HPF (0-5/HPF); WBC Urine 30-100/HPF (0-5/HPF)
[2022-09-18 10:09] LABS: Bacteria Urine Many (>30); Culture Indicated Urine Specimen Cultured; Squamous Epithelial Cell Urine 1-5 /HPF (0-5/HPF); Transitional Epi Cells Urine 1-5/HPF (0-5/HPF)
[2022-09-18] MEDS: LIDOCAINE 2% (GLYDO) 6 ML GEL TOP (10:20)
[2022-09-18 10:32] LABS: Anisocytosis 1+; Burr Cells 1+; Platelet Estimate Adequate on smear; Poikilocytosis 1+
[2022-09-18 10:33] LABS: Microcytosis 1+
--- NOTE | 2022-09-18 10:55 | PC.NURSE ---
bladder irrigation manually done. flushed bladder with 0.9%NaCl. 1L used. 1,500ml returned. urine return started dark red/brown and turned to clear with a pink tinge. notifed provider when done. pt tolerated procedure well. stat lock applied to patient right thigh. skin protectant used.
[2022-09-18] MEDS: TRIMETH/SULFA 160/800 (DS) TABLET 1 TAB PO (11:09)
--- NOTE | 2022-09-18 12:13 | CM.SWNOTE ---
Addendum entered by ALYSSA Valdes 09/18/22 13:25: ADD: Return call from Lucero at [facility] and quoted $157 for transport today. Updated pt who states he agreeable and requests call to his spouse with update and possible call for their credit card from [facility]. SW called spouse and updated, and she states pt does not have much money, still paying off bills from the hospital but agreeable to cost of transport because no other options. SW inquired if they have applied for Medicaid and she states no as she likely will be trying to figure out going back to work to help with bills. SW confirmed with [facility] and they are headed to hospital now for transport and SW updated RN and MD. BF Original Note: Patient is an 81 year old male who was admitted on 09/18/22 to ED for Abd Pains. Pt has [facility] for insurance and his PCP is Dr. Willy Pineda. EMR was reviewed. Per ED MD, pt with hx of CHF, AFIB and GI Bleeds and now medically stable to d/c home but needs assist with finding transportation and possible resources. SW met bedside with pt and explained role. He confirms he still resides in [place] with his spouse, Breanna. He is independent, but used to use a cane and walker for home use but over the past year he has become more w/c bound for mobility. Pt states his two sons are currently in [place] and [place] and his Dtr is in [place]. Spouse does not drive and the car they had is now getting repairs. Pt states he typically uses [facility] for doctors appointments and transport needs as he has not been transferring himself into [facility]. Pt confirms though that he can transfer himself from [facility] to w/c. Pt has a hx of Birgit Sewaren for SNF and pt was last admitted a year ago and was accepted at [facility] again but ended up getting a bone biopsy with Oncologist Dr. Aguilar and was then had a hospital transfer for higher level of care needs due to dropping platelets. SW discussed possible transport options including BLS and potential for out of pocket expense, [facility] or attempting [facility]. Pt requested call to [facility] and also agreeable with private pay [facility]ulance if needed. SW called [facility] and confirmed they cannot provide same day transport. SW called [facility] and no availability today Tuesday. CRUZ called Nisha confirms they can transport but she will need to go to the office first to figure out private pay cost and then will call with quote and then provide transport. CRUZ updated RN and EUNICE and pt and he will call spouse to have the credit card available. Per MD, can send pt home with a week supply of medications so pt can schedule with [facility] for pharmacy pickup. ALYSSA Valdes
[2022-09-18] MEDS: TAMSULOSIN 0.4 MG CAPSULE PO (12:32)
--- NOTE | 2022-09-18 12:33 | PC.NURSE ---
teaching on catheter care at home. patient returned demonstration of how to empty catheter bag. verbalized understanding of gravity flow for urine elimination. not given leg bag as pt is wheelchair bound.
[2022-09-18] MEDS: TRIMETH/SULFA 160/800 PREPACK 1 BOTTLE MISC (13:53)
== END 2022-09-18 13:54 | disposition home or self-care (01) ==
PROVIDERS: Emergency Provider Emergency Medicine; PCP Family Medicine
DX: N39.0 Urinary tract infection, site not specified (principal); R31.9 Hematuria, unspecified; R33.8 Other retention of urine; Z79.01 Long term (current) use of anticoagulants; Z79.899 Other long term (current) drug therapy
CPT/HCPCS: 36415; 76770; 80053; 81001; 83690; 85025; 85610; 85730; 86850; 86900; 86901; 87077; 87086; 87186; 99284

== ENCOUNTER 2022-09-26 09:20 | Emergency (ER) | payer OTHER, SELFPAY ==
[2021-10-11 05:10] VITALS: PULSE 52; RESP 16; O2SAT 98
[2022-02-20 17:34] VITALS: BMI 26.7
[2022-09-26] VITALS (16 sets, daily range): BP systolic 93–121; BP diastolic 58–79; PULSE 82–96; RESP 14–31; TEMP 36.4; O2SAT 92–100; BMI 23.0
--- NOTE | 2022-09-26 09:36 | DI.RAD.S_ITS ---
PROCEDURE: XR CHEST 1V INDICATIONS: suspected sepsis TECHNIQUE: One view of the chest was acquired. COMPARISON: [facility], CR, XR CHEST 1V, 02/20/2022, 13:59. FINDINGS: Surgical changes and devices: None. Lungs and pleura: Lungs are clear. No pleural effusions or pneumothorax. Mediastinum: Mediastinal contours appear normal. Heart size is normal. Bones and chest wall: No suspicious bony lesions. Overlying soft tissues appear unremarkable. Rightward curvature of the thoracic spine. IMPRESSION: No acute cardiopulmonary abnormality. Dictated by: Anupam White M.D. on 09/26/2022 at 9:53 Approved by: Anupam White M.D. on 09/26/2022 at 9:54
[2022-09-26 09:47] LABS: INR 1.4 (0.9-1.3); Prothrombin Time 16.6 SECONDS (10.1-12.7)
[2022-09-26 09:48] LABS: Add Manual Diff / Slide Review NO; Basophils Absolute Auto 100 /uL (0-100); Basophils Percent Auto 1.5 % (0-2); Eosinophils Absolute Auto 300 /uL (0-450); Eosinophils Percent Auto 3.4 % (2-4); Hematocrit 34.1 % (41-53); Hemoglobin 10.6 g/dL (13.5-17.5); Lymphocytes Absolute Auto 1500 /uL (1100-4500); Mean Corpuscular Hemoglobin 21.8 PG (26-34); Mean Corpuscular Volume 70.2 fL (80-100); Monocytes Absolute Auto 600 /uL (0-900); Monocytes Percent Auto 6.9 % (3-14); Neutrophils Absolute Auto 5700 /uL (1500-7000); Neutrophils Percent Auto 70.2 % (50-75); Platelet Count 291 X10^3/uL (150-400); Red Blood Cell Count 4.87 X10^6/uL (4.5-5.9); White Blood Cell Count 8.1 X10^3/uL (4.5-11.0)
[2022-09-26 09:50] LABS: PTT Partial Thromboplastin Tim 34 SECONDS (26-36)
[2022-09-26] MEDS: SODIUM CHLORIDE 0.9% 1,000 ML 1000 ML IV (09:50)
[2022-09-26 09:58] LABS: Alanine Aminotransferase 14 IU/L (<50); Albumin 3.3 g/dL (3.5-5.0); Alkaline Phosphatase 105 U/L (38-126); Aspartate Aminotransferase 21 IU/L (17-59); Bilirubin Total 0.5 mg/dL (0.2-1.3); Blood Urea Nitrogen 20 mg/dL (9-20); Calcium 8.2 mg/dL (8.4-10.2); Carbon Dioxide 24 mmol/L (22-32); Chloride 105 mmol/L (98-107); Estimated Glomerular Filt Rate 58 mL/min (>60); Globulin 3.2 g/dL (1.7-4.1); Glucose 101 mg/dL (80-110); HEMOLYSIS < 15 (0-50); Lipase 57 U/L (23-300); Potassium 4.8 mmol/L (3.4-5.1); Sodium 134 mmol/L (137-145); Total Protein 6.5 g/dL (6.3-8.2)
[2022-09-26 10:14] LABS: Procalcitonin 0.06 ng/mL (<0.5)
[2022-09-26 10:18] LABS: COVID19 -Nasal RAPID POSITIVE (Negative)
--- NOTE | 2022-09-26 10:22 | ED_ITS ---
HPI - Male Genitourinary General Chief complaint: Urogenital-Male Stated complaint: Blood in catheter bag Time Seen by Provider: 09/26/22 10:21 Source: patient and EMS Mode of arrival: EMS History of Present Illness HPI Narrative: Patient is an 81-year-old male who has a history of atrial fibrillation on Eliquis, CHF iron-deficiency anemia presents today with ongoing hematuria. He was seen and evaluated 09/18/2022 for hematuria. He would a Mccormack catheter placed at that time. He was prescribed Bactrim which it does seem that he took a later his culture came back for Klebsiella resistant to Bactrim, Keflex was called in to him but it does not appear that he is taking that. He presents today with possible hematuria and low blood pressures. He reports his urine becoming more dark last night EMS reports that he was hypotensive. His initial blood pressure here is 95/61. Getting a L of fluid. Patient is not a reliable historian is apparently at [employer]. Nurse already changed out the Mccormack catheter there was gross discharge around it. Concerning for sepsis. Related Data Home Medications Medication Instructions Recorded Confirmed atorvastatin 40 mg tablet 40 mg PO DAILY 12/02/20 07/22/22 metoprolol succinate 25 mg 12.5 mg PO BID 12/28/21 07/22/22 tablet,extended release 24 hr sulfamethoxazole 800 See Rx Instructions .Route .COMPLEX 02/20/22 07/22/22 mg-trimethoprim 160 mg tablet (Bactrim DS) apixaban 2.5 mg tablet (Eliquis) 2.5 mg PO BID 04/19/22 07/22/22 folic acid 1 mg tablet 1 mg PO DAILY 04/19/22 07/22/22 Previous Rx's Medication Instructions Recorded pantoprazole 40 mg tablet,delayed 40 mg PO 0700,2100 #180 tabs 01/02/22 release potassium chloride 20 mEq 40 meq PO BID #180 tabs 02/21/22 tablet,extended release(part/cryst) peg 3350-electrolytes 236 240 ml PO Q10M #4,000 mL 08/26/22 gram-22.74 gram-6.74 gram-5.86 gram solution (Golytely) sulfamethoxazole 800 1 tab PO BID #14 tabs 09/18/22 mg-trimethoprim 160 mg tablet (Bactrim DS) tamsulosin 0.4 mg capsule (Flomax) 0.4 mg PO DAILY #7 caps 09/18/22 cephalexin 500 mg capsule 500 mg PO BID 7 days #14 caps 09/21/22 Allergies Allergy/AdvReac Type Severity Reaction Status Date / Time No Known Drug Allergies Allergy Verified 09/18/22 08:45 Review of Systems Review of Systems ROS Unobtainable: All systems reviewed & are unremarkable except as noted in HPI and below Patient History Medical History Atrial fibrillation Atrial flutter Barretts esophagus CHF (congestive heart failure) Chronic atrial fibrillation Chronic cough Chronic heart failure with preserved ejection fraction Degenerative arthritis Eosinophilia GERD (gastroesophageal reflux disease) GI bleed History of cardioversion Iron deficiency anemia Mixed hyperlipidemia Pulmonary fibrosis Spinal stenosis of lumbar region with neurogenic claudication Thrombocytopenia Thrombotic thrombocytopenic purpura (TTP) Surgical History History of coronary angioplasty with insertion of stent Hx of cholecystectomy Hx of tonsillectomy Social History household members: spouse Smoking Status: Never smoker alcohol intake: current Smoking Status: Never smoker alcohol intake frequency: holidays/special occasions only Substance Use Type: does not use Exam Initial Vital Signs Initial Vital Signs: Vital Signs Pulse Rate 89 09/26/22 09:30 Respiratory Rate 14 09/26/22 09:30 Blood Pressure 95/61 09/26/22 09:30 Pulse Oximetry 92 09/26/22 09:30 GENERAL: Thin alert elderly 81-year-old male and in no acute distress. HEENT: Head atraumatic,EOMI, pupils reactive, face symmetric, moist mucous membranes CARDIOVASCULAR: Regular rate and rhythm without murmurs, rubs or gallops. RESPIRATORY: Breath sounds equal bilaterally, no wheezes rales or rhonchi. ABDOMEN: Soft, nontender. Normoactive bowel sounds all 4 quadrants. No guarding or rebound. : New Mccormack catheter placed darkened urine EXTREMITIES: Normal range of motion, no clubbing or edema. Neurovascularly intact NEUROLOGICAL: Alert and oriented x4. SKIN: Warm, dry, no laceration, no petechiae, no rashes or lesions. Course Orders Ordered: ED Orders 09/26/22 11:25 Ictotest Urine Stat Urinalysis and Microscopic Stat Urine Culture Stat 09/26/22 13:43 Consult to [facility] - Plane Tender Stat Discontinued Medications Sodium Chloride (Normal Saline 0.9%) 1,000 mls @ 1,000 mls/hr IV BOLUS ONE Stop: 09/26/22 10:35 Last Infusion: 09/26/22 11:01 Dose: 0 mls/hr Documented By: Admin: 09/26/22 09:50 Dose: 1,000 mls/hr Documented By: ROCHELLE Sodium Chloride (Normal Saline 0.9%) 1,000 mls @ 125 mls/hr IV CONT FE Last Infusion: 09/26/22 15:21 Dose: 0 mls/hr Documented By: Infusion: 09/26/22 15:20 Dose: 0 mls/hr Documented By: Admin: 09/26/22 11:35 Dose: 125 mls/hr Documented By: ROCHELLE Ceftriaxone Sodium 1,000 mg/ (Sodium Chloride) 100 mls @ 200 mls/hr IV NOW ONE Stop: 09/26/22 11:29 Last Infusion: 09/26/22 12:27 Dose: 0 mls/hr Documented By: Admin: 09/26/22 11:34 Dose: 200 mls/hr Documented By: ROCHELLE Lidocaine HCl (Lidocaine 2% (Glydo) 6 Ml Gel) 6 ml TOP NOW ONE Stop: 09/26/22 10:39 Last Admin: 09/26/22 10:43 Dose: 6 ml Documented By: ROCHELLE Vital Signs Vital signs: Vital Signs - 8 hr 09/26/22 12:00 09/26/22 12:00 09/26/22 12:30 Pulse Rate 83 Respiratory Rate 23 Blood Pressure 115/66 110/72 Pulse Oximetry 98 Oxygen Delivery Method 09/26/22 12:30 09/26/22 13:00 09/26/22 13:00 Pulse Rate 87 90 Respiratory Rate 14 17 Blood Pressure 114/67 Pulse Oximetry 97 98 Oxygen Delivery Method 09/26/22 13:30 09/26/22 13:30 09/26/22 13:41 Pulse Rate 96 H 94 H Respiratory Rate 23 21 Blood Pressure 93/71 Pulse Oximetry 98 99 Oxygen Delivery Method 09/26/22 13:41 09/26/22 14:00 09/26/22 14:00 Pulse Rate 82 Respiratory Rate 14 Blood Pressure 103/58 L 103/68 Pulse Oximetry 98 Oxygen Delivery Method 09/26/22 14:30 09/26/22 14:30 09/26/22 15:00 Pulse Rate 88 Respiratory Rate 18 Blood Pressure 111/75 117/73 Pulse Oximetry 99 Oxygen Delivery Method Room Air 09/26/22 15:00 Pulse Rate 87 Respiratory Rate Blood Pressure Pulse Oximetry Oxygen Delivery Method MDM - Male Genitourinary Lab Data 09/26/22 09:20 09/26/22 09:20 Labs: Lab Results 09/26/22 09/26/22 09/26/22 Range/Units 09:20 09:20 09:20 WBC 8.1 (4.5-11.0) X10^3/uL RBC 4.87 (4.5-5.9) X10^6/uL Hgb 10.6 L (13.5-17.5) g/dL Hct 34.1 L (41-53) % MCV 70.2 L (80-100) fL MCH 21.8 L (26-34) PG MCHC 31.0 (30-36) % RDW 20.0 H (11.6-14.8) % Plt Count 291 (150-400) X10^3/uL Neut % (Auto) 70.2 (50-75) % Lymph % (Auto) 18.0 L (25-40) % [place] % (Auto) 6.9 (3-14) % Eos % (Auto) 3.4 (2-4) % Baso % (Auto) 1.5 (0-2) % Neut # (Auto) 5700 (3108-0136) /uL Lymph # (Auto) 1500 (8567-9122) /uL [place] # (Auto) 600 (0-900) /uL Eos # (Auto) 300 (0-450) /uL Baso # (Auto) 100 (0-100) /uL PT (10.1-12.7) SECONDS INR (0.9-1.3) APTT (26-36) SECONDS Sodium 134 L (137-145) mmol/L Potassium 4.8 (3.4-5.1) mmol/L Chloride 105 (98-107) mmol/L Carbon Dioxide 24 (22-32) mmol/L BUN 20 (9-20) mg/dL Creatinine 1.25 (0.66-1.25) mg/dL Estimated GFR 58 L (>60) mL/min BUN/Creatinine Ratio 16.0 (6-22) Glucose 101 (80-110) mg/dL Lactate 2.0 (0.7-2.1) mmol/L Calcium 8.2 L (8.4-10.2) mg/dL Total Bilirubin 0.5 (0.2-1.3) mg/dL AST 21 (17-59) IU/L ALT 14 (<50) IU/L Alkaline Phosphatase 105 (38-126) U/L Total Protein 6.5 (6.3-8.2) g/dL Albumin 3.3 L (3.5-5.0) g/dL Globulin 3.2 (1.7-4.1) g/dL Albumin/Globulin Ratio 1.0 (1.0-2.8) Lipase 57 (23-300) U/L Procalcitonin 0.06 (<0.5) ng/mL Urine Color Urine Appearance Urine pH (4.5-8.0) Ur Specific [place] (1.000-1.035) Urine Protein (Negative) Urine Glucose (UA) (Negative) g/dL Urine Ketones (NEGATIVE) Urine Occult Blood (Negative) Urine Nitrate (Negative) Urine Bilirubin (NEGATIVE) Ur Bilirubin Confirm (Negative) Urine Urobilinogen (0.2) E.U./dL Ur Leukocyte Esterase (NEGATIVE) Urine RBC (0-5/HPF) Urine WBC (0-5/HPF) Amorphous Sediment Urine Bacteria (None) Ur Culture Indicated? SARS-CoV-2 (PCR) (Negative) 09/26/22 09/26/22 09/26/22 Range/Units 09:20 10:00 11:25 WBC (4.5-11.0) X10^3/uL RBC (4.5-5.9) X10^6/uL Hgb (13.5-17.5) g/dL Hct (41-53) % MCV (80-100) fL MCH (26-34) PG MCHC (30-36) % RDW (11.6-14.8) % Plt Count (150-400) X10^3/uL Neut % (Auto) (50-75) % Lymph % (Auto) (25-40) % [place] % (Auto) (3-14) % Eos % (Auto) (2-4) % Baso % (Auto) (0-2) % Neut # (Auto) (8430-1909) /uL Lymph # (Auto) (6478-6564) /uL [place] # (Auto) (0-900) /uL Eos # (Auto) (0-450) /uL Baso # (Auto) (0-100) /uL PT 16.6 H (10.1-12.7) SECONDS INR 1.4 H (0.9-1.3) APTT 34 (26-36) SECONDS Sodium (137-145) mmol/L Potassium (3.4-5.1) mmol/L Chloride (98-107) mmol/L Carbon Dioxide (22-32) mmol/L BUN (9-20) mg/dL Creatinine (0.66-1.25) mg/dL Estimated GFR (>60) mL/min BUN/Creatinine Ratio (6-22) Glucose (80-110) mg/dL Lactate (0.7-2.1) mmol/L Calcium (8.4-10.2) mg/dL Total Bilirubin (0.2-1.3) mg/dL AST (17-59) IU/L ALT (<50) IU/L Alkaline Phosphatase (38-126) U/L Total Protein (6.3-8.2) g/dL Albumin (3.5-5.0) g/dL Globulin (1.7-4.1) g/dL Albumin/Globulin Ratio (1.0-2.8) Lipase (23-300) U/L Procalcitonin (<0.5) ng/mL Urine Color Yellow Urine Appearance Clear Urine pH 6.0 (4.5-8.0) Ur Specific [place] 1.025 (1.000-1.035) Urine Protein 2+ H (Negative) Urine Glucose (UA) Negative (Negative) g/dL Urine Ketones Negative (NEGATIVE) Urine Occult Blood 3+ H (Negative) Urine Nitrate Negative (Negative) Urine Bilirubin 1+ H (NEGATIVE) Ur Bilirubin Confirm Negative (Negative) Urine Urobilinogen 4.0 H (0.2) E.U./dL Ur Leukocyte Esterase Trace H (NEGATIVE) Urine RBC >100/hpf H (0-5/HPF) Urine WBC 1-5/hpf (0-5/HPF) Amorphous Sediment 1+ Urine Bacteria Few (2-10) H (None) Ur Culture Indicated? Specimen cultured SARS-CoV-2 (PCR) Positive H (Negative) Imaging Data Chest x-ray: Radiologist's Impression: PROCEDURE:? XR CHEST 1V ? INDICATIONS:? suspected sepsis ? TECHNIQUE:? One view of the chest was acquired.? ? COMPARISON:? [facility], CR, XR CHEST 1V, 02/20/2022, 13:59. ? FINDINGS:? ? Surgical changes and devices:? None.? ? Lungs and pleura:? Lungs are clear.? No pleural effusions or pneumothorax.? ? Mediastinum:? Mediastinal contours appear normal.? Heart size is normal.? ? Bones and chest wall:? No suspicious bony lesions.? Overlying soft tissues appear unremarkable.? Rightward curvature of the thoracic spine. ? IMPRESSION:? No acute cardiopulmonary abnormality. ? ? Dictated by: Anupam White M.D. on 09/26/2022 at 9:53 ? ? ECG Data Interpretation: Atrial fibrillation rate [address] changes similar to previous EKGs MDM Narrative Medical decision making narrative: Patient 81-year-old male history of atrial fibrillation on Eliquis had urinary retention on September 13 diagnosed with UTI is currently taking Keflex. Had an episode of hypotension and some mild hematuria. Overall his blood work overall reassuring without significant leukocytosis anemia electrolyte abnormality or ARANZA. Blood pressure improves with IV fluids. He is awake alert oriented. Patient gets around by wheelchair. Initially discussed admission to the hospital however overly does not meet criteria. Patient is wheelchair-bound and his does not drive [facility] was.treatment Discharge Plan Departure Patient Disposition: Home Clinical Impression: Acute UTI Instructions: DI for Urinary Tract Infection (UTI) Activity Restrictions/Additional Instructions: *You have been diagnosed with UTI *What to do: Keep catheter in *Continue to take medications as directed Finish taking antibiotic cephalexin 500 mg twice a day until gone *Follow up with your primary care provider in 2-3 days or call [phone] *Return to ER if you should have Mccormack catheter not working or any new, worsening or concerning symptoms Prescriptions: No Action peg 3350-electrolytes [Golytely] 236-22.74-6.74 -5.86 gram recon soln 240 ml PO Q10M Qty: 4000 0RF Rx Instructions: Take as directed by Physician folic acid 1 mg Tablet 1 mg PO DAILY Eliquis 2.5 mg Tablet 2.5 mg PO BID sulfamethoxazole-trimethoprim [Bactrim DS] 800-160 mg Tablet See Rx Instructions .ROUTE .COMPLEX Rx Instructions: 1 tab orally every Tuesday, Tue, Tuesday potassium chloride 20 mEq tablet,ER particles/crystals 40 meq PO BID Qty: 180 3RF tamsulosin [Flomax] 0.4 mg capsule 0.4 mg PO DAILY Qty: 7 0RF sulfamethoxazole-trimethoprim [Bactrim DS] 800-160 mg tablet 1 tab PO BID Qty: 14 0RF cephalexin 500 mg capsule 500 mg PO BID 7 Days Qty: 14 0RF atorvastatin 40 mg Tablet 40 mg PO DAILY Rx Instructions: in evening metoprolol succinate 25 mg tablet extended release 24 hr 12.5 mg PO BID Patient Comments: Take 1/2 tablet by mouth twice a day for blood pressure control pantoprazole 40 mg Tablet,Delayed Release (Dr/Ec) 40 mg PO 0700,2100 Qty: 180 1RF Referrals: Willy Pineda MD [Primary Care Provider] - Stand Alone Forms: Patient Portal/API
[2022-09-26] MEDS: LIDOCAINE 2% (GLYDO) 6 ML GEL TOP (10:43)
[2022-09-26] MEDS: cefTRIAXone 1,000 MG in SODIUM CHLORIDE 0.9% 100 ML 200 MG IV (11:34)
[2022-09-26] MEDS: SODIUM CHLORIDE 0.9% 1,000 ML 125 ML IV (11:35)
[2022-09-26 11:40] LABS: Appearance Urine UA CLEAR; Bilirubin Urine UA 1+ (NEGATIVE); Color Urine UA YELLOW; Glucose Urine UA NEGATIVE (Negative); Ketones Urine UA NEGATIVE (NEGATIVE); Leukocyte Esterase Urine UA TRACE (NEGATIVE); Nitrite Urine UA NEGATIVE (Negative); Occult Blood Urine UA 3+ (Negative); Protein Urine UA 2+ (Negative); Specific Gravity Urine UA 1.025 (1.000-1.035)
[2022-09-26 11:58] LABS: Amorphous Sediment Urine 1+; Bacteria Urine Few (2-10); Culture Indicated Urine Specimen Cultured; RBC Urine >100/HPF (0-5/HPF); WBC Urine 1-5/HPF (0-5/HPF)
[2022-09-26 12:01] LABS: Ictotest Urine Negative (Negative)
--- NOTE | 2022-09-26 12:39 | PC.NURSE ---
Pt presents to ED with 3 way catheter draining dark red urine. Dr. Harris notified and order to exchange catheter obtained. New 3 way smith cather placed by RN. Pt tolerated well.
== END 2022-09-26 16:02 | disposition home or self-care (01) ==
PROVIDERS: Emergency Provider Emergency Medicine; PCP Family Medicine
DX: N39.0 Urinary tract infection, site not specified (principal); R31.9 Hematuria, unspecified; Z79.01 Long term (current) use of anticoagulants; Z79.899 Other long term (current) drug therapy; Z20.822 Contact with and (suspected) exposure to COVID-19
CPT/HCPCS: 36415; 71045; 80053; 81001; 83605; 83690; 84145; 85025; 85610; 85730; 87040; 87086; 87635; 93005; 96361; 96365; 99284; C9803; J0696

== ENCOUNTER 2022-09-28 13:56 | Emergency (ER) | payer OTHER, SELFPAY ==
[2021-10-11 05:10] VITALS: PULSE 52; RESP 16; O2SAT 98
[2022-02-20 17:34] VITALS: BMI 26.7
[2022-09-28 14:08] VITALS: BP 107/61; PULSE 97; RESP 18; TEMP 37.1; O2SAT 100; BMI 23.0
--- NOTE | 2022-09-28 16:24 | PC.NURSE ---
Bed bath given by RN and THEOLOGY PROFESSOR. Pt had stool all over body, on his ankles and all over hands. Rosio care performed, smith catheter bag changed.
--- NOTE | 2022-09-28 17:01 | ED_ITS ---
HPI - Nausea/Vomiting/Diarrhea <Dewey Driver PA-C - Last Filed: 09/28/22 19:56> General Chief complaint: Nausea/Vomiting/Diarrhea Stated complaint: Urinary catheter problems Time Seen by Provider: 09/28/22 15:13 Source: patient and EMS Mode of arrival: EMS History of Present Illness HPI Narrative: 81-year-old male with past medical history AFib on Eliquis, CHF, iron deficiency anemia presents to the ED for 1 episode of bowel incontinence. Patient was recently seen in the ED on 09/26/2022 to change out a urinary catheter. Patient has also completed his full course of antibiotics Keflex as of yesterday. Zahida ent notes that the hematuria is vastly improved, is still waiting for a urology appointment. Patient states that he was laying in bed today, had the urge to have a bowel movement, states he did not know how to get to the bathroom and experienced bowel incontinence. He called 911 to come to the ED for it. Patient states that he has not had a bowel movement since the catheter was put in, has no idea how to have a bowel movement with the catheter. Patient is wheelchair-bound at baseline. Patient lives at home with his . Patient denies any symptoms today including fevers, chills, chest pain, shortness of breath, nausea, vomiting, abdominal pain, dysuria, lightheadedness, dizziness, syncope, abdominal pain. Related Data Home Medications Medication Instructions Recorded Confirmed atorvastatin 40 mg tablet 40 mg PO DAILY 12/02/20 07/22/22 metoprolol succinate 25 mg 12.5 mg PO BID 12/28/21 07/22/22 tablet,extended release 24 hr sulfamethoxazole 800 See Rx Instructions .Route .COMPLEX 02/20/22 07/22/22 mg-trimethoprim 160 mg tablet (Bactrim DS) apixaban 2.5 mg tablet (Eliquis) 2.5 mg PO BID 04/19/22 07/22/22 folic acid 1 mg tablet 1 mg PO DAILY 04/19/22 07/22/22 Previous Rx's Medication Instructions Recorded pantoprazole 40 mg tablet,delayed 40 mg PO 0700,2100 #180 tabs 01/02/22 release potassium chloride 20 mEq 40 meq PO BID #180 tabs 02/21/22 tablet,extended release(part/cryst) peg 3350-electrolytes 236 240 ml PO Q10M #4,000 mL 08/26/22 gram-22.74 gram-6.74 gram-5.86 gram solution (Golytely) sulfamethoxazole 800 1 tab PO BID #14 tabs 09/18/22 mg-trimethoprim 160 mg tablet (Bactrim DS) tamsulosin 0.4 mg capsule (Flomax) 0.4 mg PO DAILY #7 caps 09/18/22 Allergies Allergy/AdvReac Type Severity Reaction Status Date / Time No Known Drug Allergies Allergy Verified 09/18/22 08:45 Review of Systems <Dewey Driver PA-C - Last Filed: 09/28/22 19:56> Review of Systems ROS Unobtainable: All systems reviewed & are unremarkable except as noted in HPI and below Constitutional Constitutional: Denies chills, Denies fatigue, Denies fever(s), Denies frequent falls, Denies lethargy and Denies weakness Eyes Eyes: Denies change in vision, Denies eye discharge, Denies irritation and Denies loss of vision ENT Ears, Nose, Mouth, and Throat: Denies change in voice, Denies dizziness, Denies neck pain, Denies sore throat and Denies throat swelling Cardiovascular Cardiovascular: Denies chest pain, Denies irregular heart rhythm, Denies lightheadedness, Denies palpitations, Denies dyspnea, Denies dyspnea on exertion and Denies orthopnea Respiratory Respiratory: Denies cough, Denies dyspnea, Denies dyspnea on exertion and Denies wheezing Gastrointestinal Gastrointestinal: Denies abdominal pain, Denies change in bowel habits, Denies diarrhea, Denies nausea and Denies vomiting Genitourinary Genitourinary: Denies hematuria, Denies flank pain, Denies urinary incontinence and Denies urinary urgency Musculoskeletal Musculoskeletal: Denies back pain, Denies muscle weakness, Denies neck pain, Denies numbness and Denies tingling Integumentary/Breasts Skin/Breast: Denies pruritus, Denies erythema, Denies rash and Denies wounds Neurologic Neurologic: Denies behavioral changes, Denies confusion, Denies dizziness, Denies frequent falls, Denies loss of vision, Denies numbness, Denies tingling and Denies weakness Psychiatric Psychiatric: Denies anxiety, Denies behavioral changes, Denies confusion, Denies depression, Denies homicidal ideation and Denies suicidal ideation Endocrine Endocrine: Denies fatigue, Denies flushing and Denies palpitations Hematologic/Lymphatic Hematologic/Lymphatic: Denies easy bruising Allergic/Immunologic Allergic/Immunologic: Denies urticaria, Denies throat swelling and Denies wheezing Patient History <Dewey Driver PA-C - Last Filed: 09/28/22 19:56> Medical History Atrial fibrillation Atrial flutter Barretts esophagus CHF (congestive heart failure) Chronic atrial fibrillation Chronic cough Chronic heart failure with preserved ejection fraction Degenerative arthritis Eosinophilia GERD (gastroesophageal reflux disease) GI bleed History of cardioversion Iron deficiency anemia Mixed hyperlipidemia Pulmonary fibrosis Spinal stenosis of lumbar region with neurogenic claudication Thrombocytopenia Thrombotic thrombocytopenic purpura (TTP) Surgical History History of coronary angioplasty with insertion of stent Hx of cholecystectomy Hx of tonsillectomy Social History household members: spouse Smoking Status: Never smoker alcohol intake: current Smoking Status: Never smoker alcohol intake frequency: holidays/special occasions only Substance Use Type: does not use Exam <Dewey Driver PA-C - Last Filed: 09/28/22 19:56> Narrative Exam Narrative: Const General:?cooperative, healthy appearing and comfortable [facility] Head:?normal to inspection Ears:?hearing grossly normal bilaterally Nose:?external nose normal Face and sinus:?normal facial exam and sinuses nontender Mouth:?oral mucosae normal Throat:?posterior oropharynx normal Eyes General:?appearance normal, both eyes and all related structures Neck Neck:?normal visual inspection and no lymphadenopathy noted Resp Effort & Inspection:?normal respiratory effort Auscultation:?clear to auscultation bilaterally Cardio Rate:?regular rate Rhythm:?regular rhythm GI Abdomen is soft, nondistended, nontender to palpation. There is no CVA tenderness. Catheter is in place, draining well. Neuro General:?patient alert, patient awake and patient oriented x3 Initial Vital Signs Initial Vital Signs: Vital Signs Temperature 98.7 F 09/28/22 14:08 Pulse Rate 97 H 09/28/22 14:08 Respiratory Rate 18 09/28/22 14:08 Blood Pressure 107/61 09/28/22 14:08 Pulse Oximetry 100 09/28/22 14:08 Oxygen Delivery Method Room Air 09/28/22 14:08 <DO Raghav Palacio Last Filed: 09/29/22 01:43> Initial Vital Signs Initial Vital Signs: Vital Signs Temperature 98.7 F 09/28/22 14:08 Pulse Rate 97 H 09/28/22 14:08 Respiratory Rate 18 09/28/22 14:08 Blood Pressure 107/61 09/28/22 14:08 Pulse Oximetry 100 09/28/22 14:08 Oxygen Delivery Method Room Air 09/28/22 14:08 Course <SULLY Pierce Last Filed: 09/28/22 19:56> Orders Ordered: ED Orders 09/28/22 19:11 Consult to Home Health Stat Vital Signs Vital signs: Vital Signs - 8 hr 09/28/22 20:29 Pulse Rate 84 Blood Pressure 114/74 Pulse Oximetry 100 Oxygen Delivery Method Room Air <DO Raghav Palacio Last Filed: 09/29/22 01:43> Orders Ordered: ED Orders 09/28/22 19:11 Consult to Home Health Stat Vital Signs Vital signs: Vital Signs - 8 hr 09/28/22 20:29 Pulse Rate 84 Blood Pressure 114/74 Pulse Oximetry 100 Oxygen Delivery Method Room Air MDM - Nausea/Vomiting/Diarrhea <SULLY Pierce Last Filed: 09/28/22 19:56> MDM Narrative Medical decision making narrative: 81-year-old male with past medical history AFib on Eliquis, CHF, iron deficiency anemia presents to the ED for 1 episode of bowel incontinence. Given that patient's hematuria has significantly improved, and given that he is denying any other symptoms than the bowel incontinence today, will not further workup medically. Patient is also very clear that the incontinence happened because he was not able to get to the toilet on time. Social work has been consulted to evaluate if patient needs some education on ADLs with the catheter in versus some home help. Social work has seen the patient, will be arranging for home health, PT referral, BLS ride home. Discussed with patient, patient verbalized understanding. Medical records reviewed: Yes Discharge Plan Departure Patient Disposition: Home Clinical Impression: Incontinence of bowel Instructions: How to Care for Your Mccormack Catheter -- Male Activity Restrictions/Additional Instructions: You were evaluated in the ED today for an episode of bowel incontinence. It appears that the bowel incontinence was due to your inability to get to the toilet on time. We did not identify any medical issues today in the ED. you were seen by our social insurance specialist who is arranging for home health aide, physical therapy and a a ride home. Please follow-up with your PCP tomorrow. Return to the ED if you experience any chest pain, shortness of breath. Prescriptions: No Action peg 3350-electrolytes [Golytely] 236-22.74-6.74 -5.86 gram recon soln 240 ml PO Q10M Qty: 4000 0RF Rx Instructions: Take as directed by Physician folic acid 1 mg Tablet 1 mg PO DAILY Eliquis 2.5 mg Tablet 2.5 mg PO BID sulfamethoxazole-trimethoprim [Bactrim DS] 800-160 mg Tablet See Rx Instructions .ROUTE .COMPLEX Rx Instructions: 1 tab orally every Tuesday, Tue, Tuesday potassium chloride 20 mEq tablet,ER particles/crystals 40 meq PO BID Qty: 180 3RF tamsulosin [Flomax] 0.4 mg capsule 0.4 mg PO DAILY Qty: 7 0RF sulfamethoxazole-trimethoprim [Bactrim DS] 800-160 mg tablet 1 tab PO BID Qty: 14 0RF atorvastatin 40 mg Tablet 40 mg PO DAILY Rx Instructions: in evening metoprolol succinate 25 mg tablet extended release 24 hr 12.5 mg PO BID Patient Comments: Take 1/2 tablet by mouth twice a day for blood pressure control pantoprazole 40 mg Tablet,Delayed Release (Dr/Ec) 40 mg PO 0700,2100 Qty: 180 1RF Referrals: Willy Pineda MD [Primary Care Provider] - Stand Alone Forms: Patient Portal/API <Que Agrawal DO - Last Filed: 09/29/22 01:43> Cosign ED Attending Cosmaria inesature Attestation: Dr Agrawal Co-Sign Statement: I was available for consultation during this patient's emergency department visit. This chart is signed by myself for administrative purposes only. I did not have direct contact with this patient during this visit. They were seen independently by the APC.
[2022-09-28 17:12] VITALS: BP 102/65; PULSE 88; O2SAT 100
--- NOTE | 2022-09-28 19:23 | CM.SWNOTE ---
ED DCP Note Patient is 81 y/o male who presents to ED via EMS due to concern for BM with catheter issues. Patient's PCP is Dr. Willy Pineda, patient has [employer] [facility] advantage insurance STIFF LEG DERRICK OPERATOR reviews patient with [facility] [employer] St[employer]cher Merritt Chaparro, he reports that [place] [id number] has care officer EMT assigned to patient - Fortunato Kebede (PH. # [phone]). It is reported that Merritt assisted in applying patient for [facility] services but patient and spouse did not return calls to [facility]. Patient resides with spouse in [facility] in [place], they do not drive and call EMS regularly. It is reported that patient and spouse receive support from rastafarian members. STIFF LEG DERRICK OPERATOR enters room to meet with patient. Patient presents as A/Ox4, patient endorses at baseline he is in a wheelchair but can transfer to toilet and bath chair without issue. It was reported that today patient had a BM with his new catheter that he was unable to manage. Patient endorses interest in HH. Patient endorses hx of [facility], patient denies preference of HH. Per HH rotation [facility] is next on list. STIFF LEG DERRICK OPERATOR calls [facility], it is reported that they do not accept patient's insurance. Patient endorses preference for [facility]. STIFF LEG DERRICK OPERATOR calls [facility] and leaves VM regarding referral. STIFF LEG DERRICK OPERATOR scans in [facility] referral for PT, RN and STIFF LEG DERRICK OPERATOR services. Patient endorses he will need transport home and is agreeable to S transport. Patient endorses [facility] and looking into resources. STIFF LEG DERRICK OPERATOR calls [place] [phone] Care officer and leaves regarding the above. Plan: Patient to d/c via S this evening with [facility] referral in place. Lauren Reed, PANEL EDGE SEALER
[2022-09-28 20:29] VITALS: BP 114/74; PULSE 84; O2SAT 100
== END 2022-09-28 21:24 | disposition home or self-care (01) ==
PROVIDERS: Emergency Provider Student in an Organized Health Care Education/Training Program; PCP Family Medicine
DX: R15.9 Full incontinence of feces (principal)
CPT/HCPCS: 99281

== ENCOUNTER 2022-10-25 20:16 | Inpatient (IN) | payer MEDICARE, OTHER, SELFPAY ==
[2021-10-11 05:10] VITALS: PULSE 52; RESP 16; O2SAT 98
[2022-02-20 17:34] VITALS: BMI 26.7
[2022-10-25 20:05] VITALS: BP 149/84; PULSE 76; RESP 18; TEMP 37.1; O2SAT 99; BMI 23.0
--- NOTE | 2022-10-25 20:30 | DI.RAD.S_ITS ---
PROCEDURE: XR CHEST 1V INDICATIONS: chest pain TECHNIQUE: One view of the chest was acquired. COMPARISON: [facility], CR, XR CHEST 1V, 09/26/2022, 9:40. FINDINGS: Surgical changes and devices: None. Lungs and pleura: There is elevation of the left hemidiaphragm. No acute consolidation. No pleural effusions or pneumothorax. Mediastinum: Mediastinal contours appear normal. Heart size is normal. Bones and chest wall: No suspicious bony lesions. Overlying soft tissues appear unremarkable. IMPRESSION: 1. No acute cardiopulmonary disease. Dictated by: Wong Peres M.D. on 10/25/2022 at 21:42 Approved by: Wong Peres M.D. on 10/25/2022 at 21:43
--- NOTE | 2022-10-25 20:52 | DI.RAD.S_ITS ---
PROCEDURE: XR ABDOMEN MIN 2V INDICATIONS: abdominal pain, constipation TECHNIQUE: 2 views of the abdomen were acquired. COMPARISON: None. FINDINGS: Surgical changes and devices: None. Bowel: No pneumoperitoneum. The bowel gas pattern is nonspecific with a paucity of intraluminal gas in the small bowel. There is a small to moderate amount of colonic stool.. Soft tissues: No suspicious abdominal calcifications. Bones: No suspicious bony abnormalities. IMPRESSION: 1. Nonspecific bowel gas pattern with a paucity of small bowel gas. Dictated by: Wong Peres M.D. on 10/25/2022 at 22:07 Approved by: Wong Peres M.D. on 10/25/2022 at 22:09
--- NOTE | 2022-10-25 20:52 | ED.ABDPAIN ---
HPI - Abdominal Pain General Chief Complaint: Abdominal Pain Stated Complaint: constipation Time Seen by Provider: 10/25/22 20:52 Source: patient and EMS Mode of arrival: EMS History of Present Illness HPI narrative: 81-year-old male nonsmoker with history of chronic atrial fibrillation on Eliquis, iron deficiency anemia, TTP, CHF presents by EMS for evaluation of profound fatigue, dizziness, weakness and lightheadedness. Patient states that he has a poor appetite and has been so weak that he can not get out of bed. He complains of constipation and difficulty moving his bowels for what sounds like about a week. He is passing gas. He states that he had been seen and evaluated at some point and had blood in his urine and at that point had a Mccormack catheter placed but is unclear exactly when that was or when the last time it had been changed. Related Data Home Medications Medication Instructions Recorded Confirmed atorvastatin 40 mg tablet 40 mg PO DAILY 12/02/20 10/26/22 metoprolol succinate 25 mg 12.5 mg PO BID 12/28/21 10/26/22 tablet,extended release 24 hr sulfamethoxazole 800 See Rx Instructions .Route .COMPLEX 02/20/22 10/26/22 mg-trimethoprim 160 mg tablet (Bactrim DS) apixaban 2.5 mg tablet (Eliquis) 2.5 mg PO BID 04/19/22 10/26/22 folic acid 1 mg tablet 1 mg PO DAILY 04/19/22 10/26/22 Previous Rx's Medication Instructions Recorded pantoprazole 40 mg tablet,delayed 40 mg PO 0700,2100 #180 tabs 01/02/22 release potassium chloride 20 mEq 40 meq PO BID #180 tabs 02/21/22 tablet,extended release(part/cryst) sulfamethoxazole 800 1 tab PO BID #14 tabs 09/18/22 mg-trimethoprim 160 mg tablet (Bactrim DS) tamsulosin 0.4 mg capsule (Flomax) 0.4 mg PO DAILY #7 caps 09/18/22 Allergies Allergy/AdvReac Type Severity Reaction Status Date / Time No Known Drug Allergies Allergy Verified 09/18/22 08:45 Review of Systems Review of Systems Narrative: GENERAL: See HPI HEENT: Denies sinus pain, ear pain, sore throat, difficulty swallowing, dizziness. RESPIRATORY: Denies dyspnea, cough, wheezing, hemoptysis, sputum. CARDIOVASCULAR: Denies chest pain, palpitations, orthopnea, edema, GASTROINTESTINAL: See HPI : Denies dysuria, frequency, incontinence, hematuria, urinary retention. MUSCULOSKELETAL: denies weakness, joint pain, or bony pain SKIN: Denies rash, skin lesions, or other NEUROLOGIC: Denies weakness, headache, numbness, change in speech, confusion, seizures, incoordination. PSYCHIATRIC: No concerning psychosocial issues. 12 point review of systems is negative except for those stated above Patient History Medical History Atrial fibrillation Atrial flutter Barretts esophagus CHF (congestive heart failure) Chronic atrial fibrillation Chronic cough Chronic heart failure with preserved ejection fraction Degenerative arthritis Eosinophilia GERD (gastroesophageal reflux disease) GI bleed History of cardioversion Iron deficiency anemia Mixed hyperlipidemia Pulmonary fibrosis Spinal stenosis of lumbar region with neurogenic claudication Thrombocytopenia Thrombotic thrombocytopenic purpura (TTP) Surgical History History of coronary angioplasty with insertion of stent Hx of cholecystectomy Hx of tonsillectomy Social History household members: spouse Smoking Status: Never smoker alcohol intake: current Smoking Status: Never smoker alcohol intake frequency: holidays/special occasions only Substance Use Type: does not use Exam Narrative Exam Narrative: GENERAL: [81] year old patient appears stated age. Well-developed patient, in mild distress. Ill-appearing HEAD: Atraumatic. Normocephalic. Temporal wasting EYES: Pupils equal round and reactive. Extraocular motions intact. No scleral icterus. No injection or drainage. ENT: Nose without bleeding, purulent drainage. Throat without erythema, tonsillar hypertrophy or exudate. Airway patent. NECK: Trachea midline. Non tender CARDIOVASCULAR: Regular rate and rhythm without murmurs, gallops, or rubs. RESPIRATORY: Clear to auscultation. Breath sounds equal bilaterally. No wheezes, rales, or rhonchi. GASTROINTESTINAL: Abdomen soft, non-tender, nondistended. Bowel sounds present but decreased EXTREMITIES: No edema or joint tenderness. BACK: Nontender without deformity or crepitance. No flank tenderness. NEURO: AOx3. SKIN: No rash or erythema of visible areas Initial Vital Signs Initial Vital Signs: Vital Signs Temperature 98.7 F 10/25/22 20:05 Pulse Rate 76 10/25/22 20:05 Respiratory Rate 18 10/25/22 20:05 Blood Pressure 149/84 H 10/25/22 20:05 Pulse Oximetry 99 10/25/22 20:05 Oxygen Delivery Method Room Air 10/25/22 20:05 Course Orders Ordered: Acetaminophen (Acetaminophen 325 Mg Tablet) 650 mg PO Q6H [facility] Last Admin: 10/27/22 15:27 Dose: Not Given Documented By: Admin: 10/27/22 09:38 Dose: Not Given Documented By: Admin: 10/27/22 04:38 Dose: Not Given Documented By: Admin: 10/26/22 21:27 Dose: Not Given Documented By: Admin: 10/26/22 17:47 Dose: Not Given Documented By: Admin: 10/26/22 11:01 Dose: 650 mg Documented By: KIARRA Apixaban (Apixaban 5 Mg Tablet) 2.5 mg PO BID [facility] Last Admin: 10/27/22 09:16 Dose: 2.5 mg Documented By: Admin: 10/26/22 21:33 Dose: 2.5 mg Documented By: Admin: 10/26/22 10:47 Dose: 2.5 mg Documented By: KIARRA Atorvastatin Calcium (Atorvastatin 20 Mg Tablet) 40 mg PO DAILY [facility] Last Admin: 10/27/22 09:16 Dose: 40 mg Documented By: Admin: 10/26/22 10:48 Dose: 40 mg Documented By: KIARRA Folic Acid (Folic Acid 1 Mg Tablet) 1 mg PO DAILY [facility] Last Admin: 10/27/22 09:16 Dose: 1 mg Documented By: Admin: 10/26/22 10:48 Dose: 1 mg Documented By: KIARRA Sodium Chloride (Normal Saline 0.9%) 1,000 mls @ 125 mls/hr IV CONT [facility] Last Admin: 10/27/22 08:00 Dose: 125 mls/hr Documented By: Infusion: 10/26/22 18:50 Dose: 125 mls/hr Documented By: Admin: 10/26/22 10:50 Dose: 125 mls/hr Documented By: KIARRA Ampicillin Sodium/Sulbactam (Sodium 3 gm/ Sodium Chloride) 100 mls @ 200 mls/hr IV Q8H [facility] Magnesium Hydroxide (Magnesium Hydroxide 30 Ml Udc) 30 ml PO DAILY [facility] Last Admin: 10/27/22 09:12 Dose: Not Given Documented By: Admin: 10/26/22 10:48 Dose: 30 ml Documented By: KIARRA Metoprolol Succinate (Metoprolol Er 25 Mg Tablet) 12.5 mg PO BID [facility] Last Admin: 10/27/22 09:17 Dose: 12.5 mg Documented By: Admin: 10/26/22 21:34 Dose: 12.5 mg Documented By: Admin: 10/26/22 10:48 Dose: 12.5 mg Documented By: KIARRA Naloxone HCl (Naloxone 0.4 Mg/Ml Vial) 0.2 mg IV Q2MIN PRN PRN Reason: Opiate Reversal Ondansetron HCl (Ondansetron 4 Mg/2 Ml Inj) 4 mg IV Q8HR PRN PRN Reason: Nausea And Vomiting Pantoprazole Sodium (Pantoprazole Dr 40 Mg Tablet) 40 mg PO 0700,2100 [facility] Last Admin: 10/27/22 06:29 Dose: 40 mg Documented By: Admin: 10/26/22 21:38 Dose: 40 mg Documented By: Potassium Chloride (Potassium Chloride 20 Meq Tab) 40 meq PO BID [facility] Last Admin: 10/27/22 09:16 Dose: 40 meq Documented By: Admin: 10/26/22 21:33 Dose: 40 meq Documented By: Admin: 10/26/22 10:47 Dose: 40 meq Documented By: KIARRA Tamsulosin HCl (Tamsulosin 0.4 Mg Capsule) 0.4 mg PO DAILY [facility] Last Admin: 10/27/22 09:16 Dose: 0.4 mg Documented By: Admin: 10/26/22 10:47 Dose: 0.4 mg Documented By: KIARRA Discontinued Medications Sodium Chloride (Normal Saline 0.9%) 1,000 mls @ 1,000 mls/hr IV BOLUS ONE Stop: 10/25/22 22:12 Last Infusion: 10/25/22 22:30 Dose: 0 mls/hr Documented By: Admin: 10/25/22 21:35 Dose: 1,000 mls/hr Documented By: MALACHI Ceftriaxone Sodium 1,000 mg/ (Sodium Chloride) 100 mls @ 200 mls/hr IV NOW ONE Stop: 10/25/22 21:39 Last Infusion: 10/25/22 23:06 Dose: 0 mls/hr Documented By: Admin: 10/25/22 22:25 Dose: 200 mls/hr Documented By: MALACHI Sodium Chloride (Normal Saline 0.9%) 1,000 mls @ 125 mls/hr IV CONT [facility] Last Admin: 10/26/22 02:08 Dose: 125 mls/hr Documented By: LEEANN Ampicillin Sodium/Sulbactam (Sodium 3 gm/ Sodium Chloride) 100 mls @ 200 mls/hr IV Q12H [facility] Last Admin: 10/26/22 12:36 Dose: Not Given Documented By: KIARRA Ampicillin Sodium/Sulbactam (Sodium 3 gm/ Sodium Chloride) 100 mls @ 200 mls/hr IV Q12H [facility] Last Infusion: 10/27/22 13:53 Dose: 0 mls/hr Documented By: Admin: 10/27/22 10:35 Dose: 200 mls/hr Documented By: Infusion: 10/26/22 23:43 Dose: 200 mls/hr Documented By: Admin: 10/26/22 23:13 Dose: 200 mls/hr Documented By: Infusion: 10/26/22 12:00 Dose: 200 mls/hr Documented By: Admin: 10/26/22 11:30 Dose: 200 mls/hr Documented By: KIARRA Ondansetron HCl (Ondansetron 4 Mg Odt) 4 mg SL NOW PRN PRN Reason: Nausea And Vomiting Ondansetron HCl (Ondansetron 4 Mg/2 Ml Inj) 4 mg IV NOW PRN PRN Reason: Nausea And Vomiting Ondansetron HCl (Ondansetron 4 Mg/2 Ml Inj) 4 mg IV Q4HR PRN PRN Reason: Nausea And Vomiting Vital Signs Vital signs: Vital Signs - 8 hr 10/25/22 20:05 10/25/22 22:08 Temperature 98.7 F Pulse Rate 76 111 H Respiratory Rate 18 18 Blood Pressure 149/84 H 125/90 Pulse Oximetry 99 98 Oxygen Delivery Method Room Air Room Air MDM - Abdominal Pain Lab Data 10/27/22 04:10 10/27/22 04:10 Labs: Lab Results 10/25/22 10/25/22 10/25/22 Range/Units 20:40 20:40 20:40 WBC 15.0 H (4.5-11.0) X10^3/uL RBC 4.99 (4.5-5.9) X10^6/uL Hgb 11.2 L (13.5-17.5) g/dL Hct 35.4 L (41-53) % MCV 70.9 L (80-100) fL MCH 22.4 L (26-34) PG MCHC 31.6 (30-36) % RDW 21.7 H (11.6-14.8) % Plt Count 270 (150-400) X10^3/uL Neut % (Auto) 80.5 H (50-75) % Lymph % (Auto) 9.5 L (25-40) % Norman % (Auto) 9.5 (3-14) % Eos % (Auto) 0.0 L (2-4) % Baso % (Auto) 0.5 (0-2) % Neut # (Auto) 22547 H (6626-1488) /uL Lymph # (Auto) 1400 (0083-7458) /uL Norman # (Auto) 1400 H (0-900) /uL Eos # (Auto) 0 (0-450) /uL Baso # (Auto) 100 (0-100) /uL RBC Morphology See below Hypochromasia 1+ H Poikilocytosis 1+ H Microcytosis 1+ H Target Cells 1+ H PT (10.1-12.7) SECONDS INR (0.9-1.3) APTT (26-36) SECONDS Sodium 136 L (137-145) mmol/L Potassium 4.2 (3.4-5.1) mmol/L Chloride 102 (98-107) mmol/L Carbon Dioxide 21 L (22-32) mmol/L BUN 29 H (9-20) mg/dL Creatinine 2.38 H (0.66-1.25) mg/dL Estimated GFR 27 L (>60) mL/min BUN/Creatinine Ratio 12.2 (6-22) Glucose 88 (80-110) mg/dL Lactate 1.7 (0.7-2.1) mmol/L Calcium 8.4 (8.4-10.2) mg/dL Magnesium 1.6 (1.6-2.3) mg/dL Total Bilirubin 1.6 H (0.2-1.3) mg/dL AST 26 (17-59) IU/L ALT 18 (<50) IU/L Alkaline Phosphatase 121 (38-126) U/L Total Creatine Kinase 81 (55-170) U/L CK-MB (CK-2) TNP CK-MB (CK-2) Rel Index TNP Troponin I < 0.012 (0.01-0.034) ng/mL Total Protein 6.9 (6.3-8.2) g/dL Albumin 3.5 (3.5-5.0) g/dL Globulin 3.4 (1.7-4.1) g/dL Albumin/Globulin Ratio 1.0 (1.0-2.8) Lipase 26 (23-300) U/L Procalcitonin (<0.5) ng/mL Urine RBC (0-5/HPF) Urine WBC (0-5/HPF) Ur Squamous Epith Cells (0-5/HPF) Urine Bacteria (None) Urine Yeast (None) Ur Culture Indicated? Ur Random Sodium (30-90) mmol/L Urine Creatinine mg/dL SARS-CoV-2 (PCR) (Negative) 10/25/22 10/25/22 10/25/22 Range/Units 20:40 21:14 21:29 WBC (4.5-11.0) X10^3/uL RBC (4.5-5.9) X10^6/uL Hgb (13.5-17.5) g/dL Hct (41-53) % MCV (80-100) fL MCH (26-34) PG MCHC (30-36) % RDW (11.6-14.8) % Plt Count (150-400) X10^3/uL Neut % (Auto) (50-75) % Lymph % (Auto) (25-40) % Norman % (Auto) (3-14) % Eos % (Auto) (2-4) % Baso % (Auto) (0-2) % Neut # (Auto) (8288-7697) /uL Lymph # (Auto) (7308-1806) /uL Norman # (Auto) (0-900) /uL Eos # (Auto) (0-450) /uL Baso # (Auto) (0-100) /uL RBC Morphology Hypochromasia Poikilocytosis Microcytosis Target Cells PT (10.1-12.7) SECONDS INR (0.9-1.3) APTT (26-36) SECONDS Sodium (137-145) mmol/L Potassium (3.4-5.1) mmol/L Chloride (98-107) mmol/L Carbon Dioxide (22-32) mmol/L BUN (9-20) mg/dL Creatinine (0.66-1.25) mg/dL Estimated GFR (>60) mL/min BUN/Creatinine Ratio (6-22) Glucose (80-110) mg/dL Lactate (0.7-2.1) mmol/L Calcium (8.4-10.2) mg/dL Magnesium (1.6-2.3) mg/dL Total Bilirubin (0.2-1.3) mg/dL AST (17-59) IU/L ALT (<50) IU/L Alkaline Phosphatase (38-126) U/L Total Creatine Kinase (55-170) U/L CK-MB (CK-2) CK-MB (CK-2) Rel Index Troponin I (0.01-0.034) ng/mL Total Protein (6.3-8.2) g/dL Albumin (3.5-5.0) g/dL Globulin (1.7-4.1) g/dL Albumin/Globulin Ratio (1.0-2.8) Lipase (23-300) U/L Procalcitonin 0.13 (<0.5) ng/mL Urine RBC 1-5/hpf D (0-5/HPF) Urine WBC 30-100/hpf H (0-5/HPF) Ur Squamous Epith Cells 1-5 /hpf (0-5/HPF) Urine Bacteria Many (>30) H (None) Urine Yeast 30-100/hpf H (None) Ur Culture Indicated? Specimen cultured Ur Random Sodium (30-90) mmol/L Urine Creatinine mg/dL SARS-CoV-2 (PCR) Negative (Negative) 10/25/22 10/25/22 Range/Units 21:29 22:03 WBC (4.5-11.0) X10^3/uL RBC (4.5-5.9) X10^6/uL Hgb (13.5-17.5) g/dL Hct (41-53) % MCV (80-100) fL MCH (26-34) PG MCHC (30-36) % RDW (11.6-14.8) % Plt Count (150-400) X10^3/uL Neut % (Auto) (50-75) % Lymph % (Auto) (25-40) % Norman % (Auto) (3-14) % Eos % (Auto) (2-4) % Baso % (Auto) (0-2) % Neut # (Auto) (5605-1218) /uL Lymph # (Auto) (9875-9846) /uL Norman # (Auto) (0-900) /uL Eos # (Auto) (0-450) /uL Baso # (Auto) (0-100) /uL RBC Morphology Hypochromasia Poikilocytosis Microcytosis Target Cells PT 24.1 H (10.1-12.7) SECONDS INR 2.1 H (0.9-1.3) APTT 36 (26-36) SECONDS Sodium (137-145) mmol/L Potassium (3.4-5.1) mmol/L Chloride (98-107) mmol/L Carbon Dioxide (22-32) mmol/L BUN (9-20) mg/dL Creatinine (0.66-1.25) mg/dL Estimated GFR (>60) mL/min BUN/Creatinine Ratio (6-22) Glucose (80-110) mg/dL Lactate (0.7-2.1) mmol/L Calcium (8.4-10.2) mg/dL Magnesium (1.6-2.3) mg/dL Total Bilirubin (0.2-1.3) mg/dL AST (17-59) IU/L ALT (<50) IU/L Alkaline Phosphatase (38-126) U/L Total Creatine Kinase (55-170) U/L CK-MB (CK-2) CK-MB (CK-2) Rel Index Troponin I (0.01-0.034) ng/mL Total Protein (6.3-8.2) g/dL Albumin (3.5-5.0) g/dL Globulin (1.7-4.1) g/dL Albumin/Globulin Ratio (1.0-2.8) Lipase (23-300) U/L Procalcitonin (<0.5) ng/mL Urine RBC (0-5/HPF) Urine WBC (0-5/HPF) Ur Squamous Epith Cells (0-5/HPF) Urine Bacteria (None) Urine Yeast (None) Ur Culture Indicated? Ur Random Sodium 92 H (30-90) mmol/L Urine Creatinine 47.8 mg/dL SARS-CoV-2 (PCR) (Negative) Point of care testing: Urine Dip Bedside Urine Glucose Negative Bedside Urine Bilirubin - Negative Bedside Urine Ketone - Negative Urine Specific [place] 1.010 Bedside Urine Occult Blood + Bedside Urine pH 6.0 Bedside Urine Protein - Negative Bedside Urine Urobilinogen - Negative Bedside Urine Nitrite - Negative Bedside Urine Leukocytes ++ 125 Esterase Imaging Data Abdominal x-ray: Attestation: I personally reviewed and interpreted this imaging study as follows: My Impression: Nonobstructive, nonspecific bowel gas pattern Radiologist's Impression: Nonspecific bowel gas pattern with a paucity of small bowel gas MDM Narrative Medical decision making narrative: 81-year-old male with primary complaint of generalized weakness and constipation found to have evidence of dehydration, acute kidney injury in the setting of a UTI along with constipation. Discussed with patient's primary care provider who will admit for further treatment and evaluation Discharge Plan Departure Patient Disposition: Admitted As Inpatient Clinical Impression: Acute kidney failure, Acute dehydration, Acute UTI, Acute constipation Admit Date/Time: 10/26/22 00:43 Admit Provider: Federico Hunt
[2022-10-25 20:59] LABS: Add Manual Diff / Slide Review NO; Basophils Absolute Auto 100 /uL (0-100); Basophils Percent Auto 0.5 % (0-2); Eosinophils Absolute Auto 0 /uL (0-450); Hematocrit 35.4 % (41-53); Hemoglobin 11.2 g/dL (13.5-17.5); Lymphocytes Absolute Auto 1400 /uL (1100-4500); Lymphocytes Percent Auto 9.5 % (25-40); Mean Corpuscular HGB Conc 31.6 % (30-36); Mean Corpuscular Hemoglobin 22.4 PG (26-34); Mean Corpuscular Volume 70.9 fL (80-100); Monocytes Absolute Auto 1400 /uL (0-900); Monocytes Percent Auto 9.5 % (3-14); Neutrophils Absolute Auto 12000 /uL (1500-7000); Neutrophils Percent Auto 80.5 % (50-75); Platelet Count 270 X10^3/uL (150-400); Red Blood Cell Count 4.99 X10^6/uL (4.5-5.9); Red Cell Distribution Width 21.7 % (11.6-14.8)
[2022-10-25 21:10] LABS: Alanine Aminotransferase 18 IU/L (<50); Albumin 3.5 g/dL (3.5-5.0); Alkaline Phosphatase 121 U/L (38-126); Aspartate Aminotransferase 26 IU/L (17-59); BUN Creatinine Ratio 12.2 (6-22); Bilirubin Total 1.6 mg/dL (0.2-1.3); Blood Urea Nitrogen 29 mg/dL (9-20); Calcium 8.4 mg/dL (8.4-10.2); Carbon Dioxide 21 mmol/L (22-32); Chloride 102 mmol/L (98-107); Creatine Kinase 81 U/L (55-170); Estimated Glomerular Filt Rate 27 mL/min (>60); Globulin 3.4 g/dL (1.7-4.1); Glucose 88 mg/dL (80-110); HEMOLYSIS < 15 (0-50); Lipase 26 U/L (23-300); Magnesium 1.6 mg/dL (1.6-2.3); Potassium 4.2 mmol/L (3.4-5.1); Sodium 136 mmol/L (137-145); Total Protein 6.9 g/dL (6.3-8.2)
[2022-10-25 21:21] LABS: Troponin I < 0.012 ng/mL (0.01-0.034)
[2022-10-25] MEDS: SODIUM CHLORIDE 0.9% 1,000 ML 1000 ML IV (21:35)
[2022-10-25 21:37] LABS: Lactate (Lactic Acid) 1.7 mmol/L (0.7-2.1)
--- NOTE | 2022-10-25 21:39 | PC.NURSE ---
While collecting urine from patient smith port, this RN noticed the smith cath sticker for securement to leg was partially coming off and a open, reddened wound with scant amount of serosanguinous fluid draining. Pt also had feces on sticker. This RN made charge and provider aware. This RN to help assist in clean up and check for further wounds.
[2022-10-25 21:46] LABS: Hypochromasia 1+; Microcytosis 1+; Poikilocytosis 1+; Target Cells 1+
[2022-10-25 21:54] LABS: Procalcitonin 0.13 ng/mL (<0.5)
[2022-10-25 21:59] LABS: COVID19 -Nasal RAPID Negative (Negative)
[2022-10-25 22:06] LABS: Bacteria Urine Many (>30); Creatinine Urine Random 47.8 mg/dL; RBC Urine 1-5/HPF (0-5/HPF); Sodium Urine Random 92 mmol/L (30-90); Squamous Epithelial Cell Urine 1-5 /HPF (0-5/HPF); WBC Urine 30-100/HPF (0-5/HPF)
[2022-10-25 22:07] LABS: Culture Indicated Urine Specimen Cultured
[2022-10-25 22:08] VITALS: BP 125/90; PULSE 111; RESP 18; O2SAT 98
[2022-10-25 22:21] LABS: INR 2.1 (0.9-1.3); Prothrombin Time 24.1 SECONDS (10.1-12.7)
[2022-10-25 22:24] LABS: PTT Partial Thromboplastin Tim 36 SECONDS (26-36)
[2022-10-25] MEDS: cefTRIAXone 1,000 MG in SODIUM CHLORIDE 0.9% 100 ML 200 MG IV (22:25)
[2022-10-26] VITALS (8 sets, daily range): BP systolic 102–134; BP diastolic 65–87; PULSE 65–114; RESP 17–20; TEMP 36.9–37.4; O2SAT 96–100; BMI 23.0
--- NOTE | 2022-10-26 00:07 | PC.NURSE ---
Rosio care and brief change done by [employer]. Barrier cream applied by this RN. Zander gentle border dressing applied to patient's inner left thigh where wound was from under smith cath attachment sticker. Pt also has two small scabbed over wounds on his right inner thigh. Encouraged to use call light for needs. Call light within reach.
[2022-10-26] MEDS: SODIUM CHLORIDE 0.9% 1,000 ML 125 ML IV ×2 (02:08→10:50)
--- NOTE | 2022-10-26 03:13 | PC.NURSE ---
Addendum entered by Lisa Ochoa R.N. 10/26/22 05:47: Admit Note-Patient brought to room 222 at 0140, slider board used for transfer to bed. Patient slightly withdrawn with flat affect, but participates in care. Muscle wasting with contracture to all limbs. Abrasion/skin tear to left inner thigh covered with Alevyn, few other scratches and scabs to lower legs. Incontinent small loose stool, scrotum and groin excoriated, cleansed and barrier cream applied. Original Note:
--- NOTE | 2022-10-26 08:37 | P.HP_ITS ---
History of Present Illness History of Present Illness Date Patient Seen: 10/26/22 Time Patient Seen: 08:38 Date of Onset of Symptoms: 10/24/22 Chief complaint: constipation Narrative: Patient is an 81-year-old male well known to us patient of Dr. Pineda who I am cross covering for who presents with abdominal pain. Constipation. Patient apparently had started having constipation when he took some torsemide. He just since that time has become increasingly weak. dizzy. Has not had a bowel movement. Has had no fevers or chills. No nausea or vomiting. Has a catheter. Has had it for a month. Has appointment on Tuesday for urology. For obstruction. No other changes. He is had no burning with urination no fevers chills or other changes. He is had no palpitations no chest pain. No shortness of breath. Otherwise has been feeling well. 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 Over the last 2 days. With no other changes. [facility] Medical History Atrial fibrillation Atrial flutter Barretts esophagus CHF (congestive heart failure) Chronic atrial fibrillation Chronic cough Chronic heart failure with preserved ejection fraction Degenerative arthritis Eosinophilia GERD (gastroesophageal reflux disease) GI bleed History of cardioversion Iron deficiency anemia Mixed hyperlipidemia Pulmonary fibrosis Spinal stenosis of lumbar region with neurogenic claudication Thrombocytopenia Thrombotic thrombocytopenic purpura (TTP) Surgical History History of coronary angioplasty with insertion of stent Hx of cholecystectomy Hx of tonsillectomy Social History household members: spouse Smoking Status: Never smoker alcohol intake: current Meds Home Medications and Allergies Home Medications Medication Instructions Recorded Confirmed Type atorvastatin 40 mg tablet 40 mg PO DAILY 12/02/20 10/26/22 History metoprolol succinate 25 mg 12.5 mg PO BID 12/28/21 10/26/22 History tablet,extended release 24 hr pantoprazole 40 mg tablet,delayed 40 mg PO 0700,2100 #180 tabs 01/02/22 10/26/22 Rx release sulfamethoxazole 800 See Rx Instructions .Route .COMPLEX 02/20/22 10/26/22 History mg-trimethoprim 160 mg tablet (Bactrim DS) potassium chloride 20 mEq 40 meq PO BID #180 tabs 02/21/22 10/26/22 Rx tablet,extended release(part/cryst) apixaban 2.5 mg tablet (Eliquis) 2.5 mg PO BID 04/19/22 10/26/22 History folic acid 1 mg tablet 1 mg PO DAILY 04/19/22 10/26/22 History peg 3350-electrolytes 236 240 ml PO Q10M #4,000 mL 08/26/22 09/02/22 Rx gram-22.74 gram-6.74 gram-5.86 gram solution (Golytely) sulfamethoxazole 800 1 tab PO BID #14 tabs 09/18/22 10/26/22 Rx mg-trimethoprim 160 mg tablet (Bactrim DS) tamsulosin 0.4 mg capsule (Flomax) 0.4 mg PO DAILY #7 caps 09/18/22 10/26/22 Rx Allergies Allergy/AdvReac Type Severity Reaction Status Date / Time No Known Drug Allergies Allergy Verified 09/18/22 08:45 Review of Systems Review of Systems Narrative: All negative except above Exam Vital Signs (past 8 hours): - 10/26/22 00:50 10/26/22 01:40 10/26/22 02:00 Temperature 99.2 F Pulse Rate 114 H 65 Respiratory Rate 20 17 Blood Pressure 134/87 119/78 Pulse Oximetry 98 98 Oxygen Delivery Method Room Air Room Air 10/26/22 04:00 Temperature 99.0 F Pulse Rate 113 H Respiratory Rate 17 Blood Pressure 121/82 Pulse Oximetry 96 Oxygen Delivery Method Oxygen Delivery Method Room Air Narrative Exam Narrative: alert elderly male lying in bed no acute distress mucous membranes dry. Neck supple without adenopathy JVD or bruits. Lungs are clear. Heart is regular rate and rhythm without murmurs clicks rubs or gallops abdomen is soft does have bowel sounds but is diffusely tender no rebound no guarding no masses. Extremities without cyanosis clubbing edema. Neurologic exam is normal. Objective Labs 10/25/22 20:40 10/25/22 20:40 Labs: Laboratory Results - last 24 hr 10/25/22 10/25/22 10/25/22 20:40 20:40 20:40 WBC 15.0 H RBC 4.99 Hgb 11.2 L Hct 35.4 L MCV 70.9 L MCH 22.4 L MCHC 31.6 RDW 21.7 H Plt Count 270 Neut % (Auto) 80.5 H Lymph % (Auto) 9.5 L Moffat % (Auto) 9.5 Eos % (Auto) 0.0 L Baso % (Auto) 0.5 Neut # (Auto) 97928 H Lymph # (Auto) 1400 Moffat # (Auto) 1400 H Eos # (Auto) 0 Baso # (Auto) 100 RBC Morphology See below Hypochromasia 1+ H Poikilocytosis 1+ H Microcytosis 1+ H Target Cells 1+ H PT INR APTT Sodium 136 L Potassium 4.2 Chloride 102 Carbon Dioxide 21 L BUN 29 H Creatinine 2.38 H Estimated GFR 27 L BUN/Creatinine Ratio 12.2 Glucose 88 Lactate 1.7 Calcium 8.4 Magnesium 1.6 Total Bilirubin 1.6 H AST 26 ALT 18 Alkaline Phosphatase 121 Total Creatine Kinase 81 CK-MB (CK-2) TNP CK-MB (CK-2) Rel Index TNP Troponin I < 0.012 Total Protein 6.9 Albumin 3.5 Globulin 3.4 Albumin/Globulin Ratio 1.0 Lipase 26 Procalcitonin Urine RBC Urine WBC Ur Squamous Epith Cells Urine Bacteria Urine Yeast Ur Culture Indicated? Ur Random Sodium Urine Creatinine SARS-CoV-2 (PCR) 10/25/22 10/25/22 10/25/22 20:40 21:14 21:29 WBC RBC Hgb Hct MCV MCH MCHC RDW Plt Count Neut % (Auto) Lymph % (Auto) Moffat % (Auto) Eos % (Auto) Baso % (Auto) Neut # (Auto) Lymph # (Auto) Moffat # (Auto) Eos # (Auto) Baso # (Auto) RBC Morphology Hypochromasia Poikilocytosis Microcytosis Target Cells PT INR APTT Sodium Potassium Chloride Carbon Dioxide BUN Creatinine Estimated GFR BUN/Creatinine Ratio Glucose Lactate Calcium Magnesium Total Bilirubin AST ALT Alkaline Phosphatase Total Creatine Kinase CK-MB (CK-2) CK-MB (CK-2) Rel Index Troponin I Total Protein Albumin Globulin Albumin/Globulin Ratio Lipase Procalcitonin 0.13 Urine RBC 1-5/hpf D Urine WBC 30-100/hpf H Ur Squamous Epith Cells 1-5 /hpf Urine Bacteria Many (>30) H Urine Yeast 30-100/hpf H Ur Culture Indicated? Specimen cultured Ur Random Sodium Urine Creatinine SARS-CoV-2 (PCR) Negative 10/25/22 10/25/22 21:29 22:03 WBC RBC Hgb Hct MCV MCH MCHC RDW Plt Count Neut % (Auto) Lymph % (Auto) Moffat % (Auto) Eos % (Auto) Baso % (Auto) Neut # (Auto) Lymph # (Auto) Moffat # (Auto) Eos # (Auto) Baso # (Auto) RBC Morphology Hypochromasia Poikilocytosis Microcytosis Target Cells PT 24.1 H INR 2.1 H APTT 36 Sodium Potassium Chloride Carbon Dioxide BUN Creatinine Estimated GFR BUN/Creatinine Ratio Glucose Lactate Calcium Magnesium Total Bilirubin AST ALT Alkaline Phosphatase Total Creatine Kinase CK-MB (CK-2) CK-MB (CK-2) Rel Index Troponin I Total Protein Albumin Globulin Albumin/Globulin Ratio Lipase Procalcitonin Urine RBC Urine WBC Ur Squamous Epith Cells Urine Bacteria Urine Yeast Ur Culture Indicated? Ur Random Sodium 92 H Urine Creatinine 47.8 SARS-CoV-2 (PCR) Assessment & Plan Assessment & Plan narrative: Abdominal pain. Possible constipation. X-ray did not show anything definitive. Does not have a surgical abdomen but quite tender. Patient is quite comfortable. At this point may need CT scan to define further but would like to see if we can give him some milk of magnesia and get a bowel movement and see how he feels. With kidney function prefer not to give contrast right now but will see how the day goes. Will broaden antibiotic coverage slightly to include anaerobes and will re-evaluate in a.m.. And this afternoon. Depending on how things are going well readdress. Dehydration. Moderate. Continue IV hydration. Will watch closely. Follow from there. Infectious disease. Patient with clear and infection in his urine but has had almost long history of infection. Will change catheter today. Will place on IV Unasyn. He does have some abdominal pain will cover with some anaerobes coverage which is slightly better than what he was admitted with and then will have to follow. Whether or not he has other infectious issues going on does not appear to be pulmonary primarily probably urine but will have to follow. Will have to see how his pain resolves. Atrial fibrillation. Patient currently stable. Vital signs are stable I do not think this is part of what is going on but will watch closely. Continue on telemetry can discontinue tomorrow stable. TTP. Seems to be stable. Platelets are fine. No change in treatment at this time. reflux continue PPI History of chronic heart failure. Right now seems to be doing well. Will have to watch carefully with IV hydration. Follow in a.m.. VT E prophylaxis. On anticoagulation should be fine. Pulmonary fibrosis. Stable at this time will continue to follow. No evidence of infection and pulmonary. Code status DNR. GI prophylaxis should be stable with current therapy for reflux Disposition. Probably will be here at least 48 hours. Hopefully we can get him out before his urology appointment on Tuesday. 55 minutes spent total time with patient with dictation with nu Quality VTE Deep Vein Thrombosis/Pulmonary Embolism Present on Admission: No
[2022-10-26] MEDS: APIXABAN 5 MG TABLET 2.5 MG PO ×2 (10:47→21:33)
[2022-10-26] MEDS: TAMSULOSIN 0.4 MG CAPSULE PO (10:47)
[2022-10-26] MEDS: POTASSIUM CHLORIDE 20 MEQ TAB 40 MEQ PO ×2 (10:47→21:33)
[2022-10-26] MEDS: MAGNESIUM HYDROXIDE 30 ML UDC PO (10:48)
[2022-10-26] MEDS: ATORVASTATIN 20 MG TABLET 40 MG PO (10:48)
[2022-10-26] MEDS: METOPROLOL ER 25 MG TABLET 12.5 MG PO ×2 (10:48→21:34)
[2022-10-26] MEDS: FOLIC ACID 1 MG TABLET PO (10:48)
[2022-10-26] MEDS: ACETAMINOPHEN 325 MG TABLET 650 MG PO (11:01)
[2022-10-26] MEDS: AMPICILLIN/SULBACTAM 3 GM 3 GM in SODIUM CHLORIDE 0.9% 100 ML IV ×2 (11:30→23:13)
--- NOTE | 2022-10-26 15:59 | CM.DANOTE ---
DCP/Assessment: Reviewed chart. Patient is a 81yr old male admitted to with abdominal pain. Patient met inpateint status due to kidney function. PCP is Dr. Pineda. Primary payor is 1)[employer] ADV. Met with patient explained CM/SW role. Patient appears tired at time of visit. Patient complains of abdominal pain but does not specify location. Patient resides with spouse/Breanna at [facility]. Patient has indwelling smith. Patient reports that he has appointment with Dr. Perkins on 10-28-22. Provider aware and is hopeful that patient might be discharged by then? Patient reports being very weak for the last few months. Patient spends most of his time in a w/c. Patient has HH services through [facility] and would very much like to have those resumed. Anticipate that patient will return home with [facility]. Unclear on how patient can get to urology appointment on ? Patient reports that he will need non-urgent BLS transport to return home. Patient inquiring on whether or not Dr. Perkins could see him while he is here? Will discuss above concerns with proovider tomorrow. P: Home with [facility] resumed. Patient most likely will need non-urgent BLS transport if unable to sit up or walk. Patient made aware that ambulance transport will be billed to him and that it is not usually a covered expense. He may copay which most likely would be cheaper. Patient aware and agreeable. NICOLE Discharge Planning/Care Management CM Discharge Assessment Start: 10/26/22 15:51 Freq: Status: Active Protocol: Document 10/26/22 15:52 NICOLE (Rec: 10/26/22 15:59 NICOLE [id number]) Discharge Planning Assessment Assigned Registered Nurses ALYSSA Alferdo Contact Information Breanna Pro (spouse) ph# [phone] Advance Directives? Yes: Polst Advance Directives on File No History Provided By Patient,Medical Record Prior Living Arrangements House Household Members spouse Type of transporation used prior to Relies on Others admit Comment Patient reports that he has been w/c bound x1-2 months. Independent with ADL's No: w/c bound Is patient alert and oriented? Yes Needs Assistance With Meal Prep,Home Chores / Shopping DME Already Rented / Owned Wheelchair Patient/Family Preference Home with Home Health Barriers to Discharge No Comment Patient most likely will need non-urgent BLS transport home. Patient would like all services with [facility] resumed . Discharge Plan Home with Home Health Transportation Arrangement Non urgent BLS or friend/ family member. Per notes spouse does not drive. Referrals Initiated Home Health If patient plan is home with home health No: Will need to call [facility] : Has signed face to face form been and obtain order to resume. completed? Medicare choice list reviewed on patient electronic tablet with SNF/HH Preference [facility] Contact Name/Phone [employer]# [phone] Whiteboard Updated in Patient Room with Yes name and ext. # of Registered Nurses Review Status In Process Next Review Type Continued Stay Review
--- NOTE | 2022-10-26 16:20 | PC.NURSE ---
Pt is A&OX3, VSS, tachycardic. Placed on telemetry per MD orders afib with HR 110's. He is afebrile this shift. He reports legs are contracted and he is unable to extend them and rates the tightness stiffness discomfort 6/10. He is medicated with scheduled tylenol and is resting afterward. Smith catheter changed out per orders and upon new smith insertion immediately 1475ml dark yellow colored out put obtained. Patient tolerated unasyn IV antibiotic well. He is tolerating full liquid diet well this shift.
[2022-10-26] MEDS: PANTOPRAZOLE DR 40 MG TABLET PO (21:38)
[2022-10-27] VITALS (8 sets, daily range): BP systolic 119–150; BP diastolic 71–85; PULSE 91–121; RESP 17–18; TEMP 37.1–37.3; O2SAT 95–100
[2022-10-27 05:21] LABS: Alanine Aminotransferase 13 IU/L (<50); Albumin 2.4 g/dL (3.5-5.0); Albumin Globulin Ratio 0.9 (1.0-2.8); Alkaline Phosphatase 86 U/L (38-126); Aspartate Aminotransferase 16 IU/L (17-59); BUN Creatinine Ratio 16.3 (6-22); Bilirubin Total 0.8 mg/dL (0.2-1.3); Blood Urea Nitrogen 24 mg/dL (9-20); Calcium 7.3 mg/dL (8.4-10.2); Carbon Dioxide 23 mmol/L (22-32); Chloride 112 mmol/L (98-107); Estimated Glomerular Filt Rate 48 mL/min (>60); Globulin 2.7 g/dL (1.7-4.1); Glucose 87 mg/dL (80-110); HEMOLYSIS < 15 (0-50); Potassium 3.9 mmol/L (3.4-5.1); Sodium 139 mmol/L (137-145); Total Protein 5.1 g/dL (6.3-8.2)
[2022-10-27 05:28] LABS: Add Manual Diff / Slide Review NO; Basophils Absolute Auto 0 /uL (0-100); Basophils Percent Auto 0.3 % (0-2); Eosinophils Absolute Auto 0 /uL (0-450); Eosinophils Percent Auto 0.2 % (2-4); Hematocrit 28.3 % (41-53); Hemoglobin 8.9 g/dL (13.5-17.5); Lymphocytes Absolute Auto 600 /uL (1100-4500); Lymphocytes Percent Auto 7.2 % (25-40); Mean Corpuscular HGB Conc 31.6 % (30-36); Mean Corpuscular Hemoglobin 22.6 PG (26-34); Mean Corpuscular Volume 71.7 fL (80-100); Monocytes Absolute Auto 900 /uL (0-900); Monocytes Percent Auto 11.2 % (3-14); Neutrophils Absolute Auto 6400 /uL (1500-7000); Neutrophils Percent Auto 81.1 % (50-75); Platelet Count 181 X10^3/uL (150-400); Red Blood Cell Count 3.95 X10^6/uL (4.5-5.9); Red Cell Distribution Width 21.6 % (11.6-14.8); White Blood Cell Count 7.9 X10^3/uL (4.5-11.0)
[2022-10-27 06:00] LABS: Anisocytosis 2+; Hypochromasia 1+; Microcytosis 1+; Ovalocytes 1+; Poikilocytosis 1+; RBC Morphology a
[2022-10-27] MEDS: PANTOPRAZOLE DR 40 MG TABLET PO ×2 (06:29→21:29)
[2022-10-27] MEDS: SODIUM CHLORIDE 0.9% 1,000 ML 125 ML IV ×2 (08:00→18:36)
[2022-10-27] MEDS: ATORVASTATIN 20 MG TABLET 40 MG PO (09:16)
[2022-10-27] MEDS: FOLIC ACID 1 MG TABLET PO (09:16)
[2022-10-27] MEDS: POTASSIUM CHLORIDE 20 MEQ TAB 40 MEQ PO ×2 (09:16→21:21)
[2022-10-27] MEDS: APIXABAN 5 MG TABLET 2.5 MG PO ×2 (09:16→21:23)
[2022-10-27] MEDS: TAMSULOSIN 0.4 MG CAPSULE PO (09:16)
[2022-10-27] MEDS: METOPROLOL ER 25 MG TABLET 12.5 MG PO ×2 (09:17→21:22)
--- NOTE | 2022-10-27 09:59 | PT-IP ANOTE ---
Attempted to see pt for initial evaluation. Pt notes he feels he is at baseline, uses w/c almost exclusively at this point, has been working with HH PT to decrease hamstring contractures in effort to work toward ambulation. At this point, does not want to participate in in-patient PT until he speaks with hospitalist and determines what the plan going forward is. Will attempt again later today.
[2022-10-27] MEDS: AMPICILLIN/SULBACTAM 3 GM 3 GM in SODIUM CHLORIDE 0.9% 100 ML IV ×2 (10:35→18:14)
--- NOTE | 2022-10-27 12:11 | OT.IPNOTE ---
Pt states not wanting to participate in OT today as feeling weak, to check on the pt again later.
--- NOTE | 2022-10-27 13:52 | P.PN_ITS ---
Subjective Subjective Interval history: date seen: 10/27/2022 time seen: 11am CC: I feel hungry for some real food - weakness/UTI Feeling better today Catheter was changed out yesterday he has appt with Dr Perkins urology tomorrow early afternoon to address his catheter which was placed in ED for obstruction he is intereted in getting it out plan to work with PT/OT today try to get into the chair etc ARANZA is improving with abx and fluids appetite improving Exam Vital Signs (past 8 hours): - 10/27/22 07:53 10/27/22 08:00 10/27/22 10:11 Temperature 99.2 F Pulse Rate 121 H 91 H Respiratory Rate 18 Blood Pressure 135/85 Pulse Oximetry 97 100 Oxygen Delivery Method Room Air Oxygen Flow Rate 0 Oxygen Delivery Method Room Air Oxygen Flow Rate 0 Narrative Exam Narrative: alert elder laying in bed comfortably - deconditioned Const General: comfortable and well developed Nutritional Appearance: thin HENMT Head: normocephalic and atraumatic Resp Other: clear to auscultation bilaterally Cardio Other: regular rate S1/S2 GI Other: soft nontender nondistended Other: new catheter in place draining straw colored urine Skin General: No petechiae and No purpura Neuro General: patient alert, patient awake, patient oriented x3 and moves all extremities Extrem General: full ROM, no clubbing, cyanosis or edema and muscle atrophy Objective Labs 10/27/22 04:10 10/27/22 04:10 Labs: Laboratory Results - last 24 hr 10/27/22 10/27/22 04:10 04:10 WBC 7.9 RBC 3.95 L Hgb 8.9 L Hct 28.3 L MCV 71.7 L MCH 22.6 L MCHC 31.6 RDW 21.6 H Plt Count 181 Neut % (Auto) 81.1 H Lymph % (Auto) 7.2 L Porter % (Auto) 11.2 Eos % (Auto) 0.2 L Baso % (Auto) 0.3 Neut # (Auto) 6400 Lymph # (Auto) 600 L Porter # (Auto) 900 Eos # (Auto) 0 Baso # (Auto) 0 RBC Morphology a Hypochromasia 1+ H Poikilocytosis 1+ H Anisocytosis 2+ H Microcytosis 1+ H Ovalocytes 1+ H Sodium 139 Potassium 3.9 Chloride 112 H Carbon Dioxide 23 BUN 24 H Creatinine 1.47 H Estimated GFR 48 L BUN/Creatinine Ratio 16.3 Glucose 87 Calcium 7.3 L Total Bilirubin 0.8 AST 16 L ALT 13 Alkaline Phosphatase 86 Total Protein 5.1 L Albumin 2.4 L Globulin 2.7 Albumin/Globulin Ratio 0.9 L PFSH Medical History Atrial fibrillation Atrial flutter Barretts esophagus CHF (congestive heart failure) Chronic atrial fibrillation Chronic cough Chronic heart failure with preserved ejection fraction Degenerative arthritis Eosinophilia GERD (gastroesophageal reflux disease) GI bleed History of cardioversion Iron deficiency anemia Mixed hyperlipidemia Pulmonary fibrosis Spinal stenosis of lumbar region with neurogenic claudication Thrombocytopenia Thrombotic thrombocytopenic purpura (TTP) Surgical History History of coronary angioplasty with insertion of stent Hx of cholecystectomy Hx of tonsillectomy Social History household members: spouse Smoking Status: Never smoker alcohol intake: current Assessment & Plan Assessment & Plan narrative: #Abdominal pain relieved s/p BM normal exam today ok to advance diet #Dehydration improving with IVF #UTI, catheter associated, present on admission #acute kidney injury continue unasyn - clinical improvement noted? catheter initially placed 09/16/2022 in ED for hematuria and what seemed to be acute UTI klebisella on top of chronic urinary retention took bactrim then keflex a month ago - subsequently improved then declined this catheter was swapped out yesterday - continue unasyn and ivf today with flomax - goal is eventual d/c #Atrial fibrillation rate controlled continue home meds ok to stop tele #hx of TTP stable platelets in 200s.? No change in treatment at this time. #GERD continue home PPI #History of chronic heart failure Doing ok, monitor in context of IVF #hx of pulmonary fibrosis stable, not needing O2 DVT PPX: continue home eliquis code status: DNR MDM: Tory Pro dispo: pending PT/OT eval - hopeful for dc to urology waiting room tomorrow perhaps. Complex patient with multiple risk factors requiring close monitoring inpatient. time spent: 55 min including documentation exam and coordination of care Quality VTE Deep Vein Thrombosis/Pulmonary Embolism Present on Admission: No
--- NOTE | 2022-10-27 14:03 | DIET.CONS ---
Addendum entered by Janeen Chung 10/27/22 14:11: EER: [id number] kcal (25-28 kcal/kg per BMI), 80-100 g protein (1.1-1.3 g/kg per mod PCM) Monitoring/Evaluations: RD consult prn Original Note: Dietary Consultation Note Admission Date: 10/26/2022 00:43 Assessment: 81 y/o M admitted with abdominal pain. RD review due to screening for low MNA. MNA 8 (possible malnutrition) and BMI 22.8 (low for age). Met with pt at bedside to discuss current diet and to assess for malnutrition. Pt reports ?eating pretty well? until constipation a two days ago which resulted in poor appetite and reduced PO. Constipation is now resolved per pt and pt notes having an appetite again. Per notes, pt had been so weak that he could not get out of bed. Prior to constipation, pt reports having 2-3 meals/day with no change in appetite. Though diet recall indicates frequent eating occurrences, pt displays physical signs of muscle/fat wasting. Current weight about mid-point for EMR based UBW of 160-170# over the last year. Pt reports occasionally using Meals on Wheels, however, does not like the food so does most of the cooking for himself and spouse. Pt used to consume protein shakes but has discontinued. Diet Recall: B: 1-2 cups black coffee, oatmeal with brown sugar and milk OR egg and toast. L: spaghetti and meatballs OR salad. S: cookies or chips. D: homemade pizza with pepperoni and veggies OR skips d/t not being hungry. S: occasional evening snack. Fluids: ~30 oz water, danielle shameka OR root beer. NFPE: temporal wasting (moderate), boxed shoulders (severe), interosseous wasting (severe) Ht: 180.34 cm Wt: 74.3 kg BMI: 23.0 UBW: 75 kg Last BM: 10/26/22 (10/26/22 20:00) MNA: 8 Erick Score: 19 Diet: 10/27/22 Lunch General (Regular) Diet Diet Modifications: Nutrition Percent Meal Consumed 75% 10/27/22 08:50 Percent Meal Consumed 25% 10/26/22 18:00 Percent Meal Consumed 25% 10/26/22 13:19 Percent Meal Consumed 50% 10/26/22 09:03 Labs: RBC 3.95 X10^6/uL (4.5-5.9) L 10/27/22 04:10 Hgb 8.9 g/dL (13.5-17.5) L 10/27/22 04:10 Hct 28.3 % (41-53) L 10/27/22 04:10 Creatinine 1.47 mg/dL (0.66-1.25) H 10/27/22 04:10 Lactate 1.7 mmol/L (0.7-2.1) 10/25/22 20:40 Nutrition Diagnosis: moderate protein calorie malnutrition r/t predicted inadequate kcal/pro intake aeb BMI 22.8 (low for age), MNA 8, moderate to severe muscle wasting (temporal, interosseous, boxed shoulders), recent decrease in appetite. Interventions: 1. Discussed the importance sustaining healthy weight and muscle mass 2. To support lean muscle, recommended ONS at home, especially if meals are skipped. 3. Will send ONS (Ensure) with dinner meal tray while hospitalized. EER: Monitoring/Evaluations: Electronically Signed by: Janeen Chung 10/27/22 14:03 Clinical Dietitian [address] [id number]
--- NOTE | 2022-10-27 15:26 | PT-IP ANOTE ---
Pt once again refusing PT eval. Notes he feels confident he can perform his wheelchair transfer at his normal level, but does not feel like attempting it now. Therapist attempted to explain that it would be beneficial in order to show if he is or is not at baseline for when he is ready to go home, but pt still refused, noted he might be more up for it tomorrow.
[2022-10-28] VITALS (7 sets, daily range): BP systolic 110–131; BP diastolic 69–77; PULSE 95–107; RESP 17–21; TEMP 36.7–37.2; O2SAT 96–98
[2022-10-28] MEDS: AMPICILLIN/SULBACTAM 3 GM 3 GM in SODIUM CHLORIDE 0.9% 100 ML IV ×3 (03:25→18:09)
[2022-10-28] MEDS: POTASSIUM CHLORIDE 20 MEQ TAB 40 MEQ PO (08:28)
[2022-10-28] MEDS: ATORVASTATIN 20 MG TABLET 40 MG PO (08:28)
[2022-10-28] MEDS: FOLIC ACID 1 MG TABLET PO (08:28)
[2022-10-28] MEDS: TAMSULOSIN 0.4 MG CAPSULE PO (08:28)
[2022-10-28] MEDS: METOPROLOL ER 25 MG TABLET 12.5 MG PO ×2 (08:30→20:20)
[2022-10-28] MEDS: APIXABAN 5 MG TABLET 2.5 MG PO ×2 (08:30→20:20)
--- NOTE | 2022-10-28 11:05 | OT.IP.EVAL ---
Current Diagnoses Unspecified abdominal pain (10/26/22) Past Medical History (Last Reviewed 10/27/22 @ 17:52 by Yo Dominguez DO) Atrial fibrillation Atrial flutter Barretts esophagus CHF (congestive heart failure) Chronic atrial fibrillation Chronic cough Chronic heart failure with preserved ejection fraction Degenerative arthritis Eosinophilia GERD (gastroesophageal reflux disease) GI bleed History of cardioversion Iron deficiency anemia Mixed hyperlipidemia Pulmonary fibrosis Spinal stenosis of lumbar region with neurogenic claudication Thrombocytopenia Thrombotic thrombocytopenic purpura (TTP) Surgical History (Last Reviewed 10/27/22 @ 17:52 by Yo Dominguez DO) History of coronary angioplasty with insertion of stent Hx of cholecystectomy Hx of tonsillectomy Occupational Therapy Inpatient Evaluation/Re-Eval M1 PT/OT-IP Prior Functional Status Start: 10/28/22 11:41 Freq: Status: Active Protocol: Document 10/28/22 11:42 [facility] (Rec: 10/28/22 12:00 [facility] [id number]) Medical Review Prior Functional Status Medical History Reviewed Yes Communication Independent Mobility and Gait W/C bound. Stand pivot to w/c from bed/couch Activities of Daily Living and IADL's Assist of spouse at times. Dressing in bed. Bathing with tub bench seat or sponge bathing. Prior Functional Level (Other details) Pt self propels manual w/c in home for all mobility. Social History Household Members spouse Living Arrangements House Number of Stairs To Enter/Railing? Ramp into living room and into home. Home Environment Tub/Shower,Ramp Home Equipment Front Wheel Walker,Manual Wheelchair,Tub Transfer Bench, Grab Bars In Shower Additional Social History Comment mechanical bed frame. M1 PT/OT-IP Prior Functional Status Start: 10/28/22 12:32 Freq: NEEDED Status: Active Protocol: Document 10/28/22 10:25 [facility] (Rec: 10/28/22 13:43 [facility] [id number]) Medical Review Prior Functional Status Medical History Reviewed Yes Communication Independent Mobility and Gait W/C bound. Stand pivot to w/c from bed/couch Activities of Daily Living and IADL's Assist of spouse at times. Dressing in bed. Bathing with tub bench seat or sponge bathing. Transfers from wc to toilet at home with use of grab bars. Prior Functional Level (Other details) Pt self propels manual w/c in home for all mobility. Social History Household Members spouse Living Arrangements House Number of Stairs To Enter/Railing? Ramp into living room and into home. Home Environment Tub/Shower,Ramp Home Equipment Front Wheel Walker,Manual Wheelchair,Tub Transfer Bench, Grab Bars In Shower Additional Social History Comment mechanical bed frame. M2 OT-IP Current Condition Start: 10/28/22 12:32 Freq: Status: Active Protocol: Document 10/28/22 10:25 [facility] (Rec: 10/28/22 13:43 [facility] [id number]) Occupational Therapy Current Condition Current Condition Evaluation Date 10/28/22 Treatment Diagnosis Dehydration, UTI Diagnosis Onset Date 10/26/22 M3 OT- IP Subjective and Pain Start: 10/28/22 12:32 Freq: Status: Active Protocol: Document 10/28/22 10:25 [facility] (Rec: 10/28/22 13:43 [facility] [id number]) OT- Subjective Occupational Therapy Visit Type Type Initial Evaluation Visit Start Time 10:25 Visit Stop Time 11:05 Total Visit Minutes 40 Occupational Therapy Visit Comments Patient Comments Pt agreed to get up to the wc and get to the sink to brush his teeth. Patient/Caregiver Goals TO go home. OT Pain Assessment Pain When Pain Assessed At Rest Pain Present Pain Present Denied Pain M4 OT- IP ADL's Start: 10/28/22 12:32 Freq: Status: Active Protocol: Document 10/28/22 10:25 [facility] (Rec: 10/28/22 13:43 [facility] [id number]) OT [id number] Comments OT Self-Feeding Comments No issues noted. OT ADL-Grooming Comments OT Grooming Comments Able to do while sitting in the wc. OT ADL-Oral Care General Eval Oral Care Ability Independent OT ADL-Dressing General Eval Lower Body Dressing Ability Minimal Assistance Comments OT Dressing Comments MARYANN to assist with catheter management with the brief, but otherwise able to michell the brief while supine in bed. OT ADL-Toileting General Evaluation Toileting Ability Total Assistance Areas Needing Assistance Empty Catheter or Colostomy Comments OT Toileting Comments Pt has smith in place. OT ADL-Bathing Comments OT Bathing Comments Pt states use of tub bench or sponges off. M5 OT- IP IADL's Start: 10/28/22 12:32 Freq: Status: Active Protocol: Document 10/28/22 10:25 [facility] (Rec: 10/28/22 13:43 [facility] [id number]) OT-Instrumental Activities of Daily Living Home Safety Awareness Home Safety Comments Pt appears a bit forgetful, having some decreased short term memory and not able to recall home past medical history very well when asked. Medication Management Medication Management Comments Would be benefit from at least supervision due to currently a little forgetful. Money Management Money Management Comments Would be benefit from at least supervision due to currently a little forgetful. Meal Preparation Meal Preparation Caregiver Provides Assist Public Health Technician Public Health Technician Caregiver Provides Assist M6 OT- IP Functional Cognition Start: 10/28/22 12:32 Freq: Status: Active Protocol: Document 10/28/22 10:25 [facility] (Rec: 10/28/22 13:43 [facility] [id number]) Cognitive Factors Limiting Selfcare Function Cognitive Ability Level of Alertness Alert Patient Orientation Name,Place,Situation Attention Span Ability Capable of Focused Attention, Capable of Sustained Attention Ability to Follow Commands Able to Follow One Step Commands Memory Description Short Term Impaired Cognitive Comments Cognitive Assessment Comments Pt able to follow commands for ADL and mobility needs and needing vc for safety for placement of wc to be closer to the bed. Pt admits at times that his transfers are not successful. OT- Vision and Hearing OT- Vision Assessment Visual Acuity Glasses All The Time Vision Assessment Comments Pt able to read the clock accurately. M7 OT- IP Mobility and Balance Start: 10/28/22 12:32 Freq: Status: Active Protocol: Document 10/28/22 10:25 [facility] (Rec: 10/28/22 13:43 [facility] [id number]) OT- Bed Mobility Assessment Supine to Sit Supine to Sit Assist Standby Assistance Sit to Supine Sit to Supine Assist Independent Scooting Scooting to Edge of Bed Standby Assistance OT-Transfer Assessment Transfers Transfer Ability Contact Guard Assistance Technique Transfer Destination Bed,Wheelchair Transfer Technique Squat Pivot Devices Transfer Assistive Devices Gait Belt Comments Mobility Comments Mainly assist to hold the wc in place as the brakes not locking properly and a hand on the pt for safety, however pt able to manage on his own, except for cues to get the wc closer to the bed before transferring over. Pt able to independently negotiate self propelling the manual wc on his own. OT- Balance Assessment Sitting Balance and Reactions Static Sitting Balance Ability Normal Dynamic Sitting Balance Ability Normal Standing Balance and Reactions Static Standing Balance Ability Poor M8 OT- IP Objective Assessments Start: 10/28/22 12:32 Freq: Status: Active Protocol: Document 10/28/22 10:25 [facility] (Rec: 10/28/22 13:43 [facility] [id number]) OT Gross Range of Motion Upper Extremity Range of Motion Assessment Within Functional Limits OT Strength Upper Extremity Strength Assessment Within Functional Limits OT- Coordination Assessment Upper Extremity Finger to Nose Test Within Functional Limits M9 OT- IP Assessment and Plan Start: 10/28/22 12:32 Freq: Status: Active Protocol: Document 10/28/22 10:25 [facility] (Rec: 10/28/22 13:43 [facility] [id number]) OT Summary Assessment and Plan Potential Rehabilitation Potential Good Analytic Complexity at Evaluation Moderate Summary OT Impairments Balance,Functional Mobility, Dressing,Toileting,Bathing, Toilet Transfers,Shower Transfers Progress Towards Goals Progressing Toward Goals,Slow Progress due to Cognition Assessment Summary Pt MOD complexity and main barriers are would benefit from more assist from his for at least supervision for transfers and assist for completeness for dressing, toileting, and bathing needs and would also benefit from a bath aid at home. Pt having some short term memory issues but may be due to his medical issues. Pt at this time best to have wc transport for safety. Pt to go home with increased assist from and home health. Goals Dressing Goal Independent Toileting Goal Standby Assistance Bathing Goal Standby Assistance Toilet Transfer Goal Independent Shower Transfer Goal Standby Assistance Days to Meet Goals 5 Frequency of Treatment Frequency Of Treatment Once a Day Treatment Plan OT Treatment Plan ADL Training,Functional Cognition Training,Functional Mobility,Patient/Family Education,Discharge Planning Discharge Recommendations OT Discharge Recommendations Home with Assistance,Home Health Transportation Needs at Discharge Wheelchair/Cabulance
--- NOTE | 2022-10-28 12:00 | PT.IIE ---
Current Diagnoses Unspecified abdominal pain (10/26/22) Surgical History (Last Reviewed 10/27/22 @ 17:52 by Yo Dominguez DO) History of coronary angioplasty with insertion of stent Hx of cholecystectomy Hx of tonsillectomy Medical History (Last Reviewed 10/27/22 @ 17:52 by Yo Dominguez DO) Atrial fibrillation Atrial flutter Barretts esophagus CHF (congestive heart failure) Chronic atrial fibrillation Chronic cough Chronic heart failure with preserved ejection fraction Degenerative arthritis Eosinophilia GERD (gastroesophageal reflux disease) GI bleed History of cardioversion Iron deficiency anemia Mixed hyperlipidemia Pulmonary fibrosis Spinal stenosis of lumbar region with neurogenic claudication Thrombocytopenia Thrombotic thrombocytopenic purpura (TTP) Physical Therapy Inpatient Evaluation/Re-Eval M1 PT/OT-IP Prior Functional Status Start: 10/28/22 11:41 Freq: Status: Active Protocol: Document 10/28/22 11:42 [facility] (Rec: 10/28/22 12:00 [id number]) Medical Review Prior Functional Status Medical History Reviewed Yes Communication Independent Mobility and Gait W/C bound. Stand pivot to w/c from bed/couch Activities of Daily Living and IADL's Assist of spouse at times. Dressing in bed. Bathing with tub bench seat or sponge bathing. Prior Functional Level (Other details) Pt self propels manual w/c in home for all mobility. Social History Household Members spouse Living Arrangements House Number of Stairs To Enter/Railing? Ramp into living room and into home. Home Environment Tub/Shower,Ramp Home Equipment Front Wheel Walker,Manual Wheelchair,Tub Transfer Bench, Grab Bars In Shower Additional Social History Comment mechanical bed frame. M2 PT-IP Current Condition Start: 10/28/22 11:41 Freq: Status: Active Protocol: Document 10/28/22 11:42 [facility] (Rec: 10/28/22 12:00 [id number]) Physical Therapy Current Condition Current Condition Evaluation Date 10/28/22 Treatment Diagnosis constipation, dehydration, UTI Onset Date 10/27/22 M3 PT-IP Subjective Start: 10/28/22 11:41 Freq: Status: Active Protocol: Document 10/28/22 11:42 [facility] (Rec: 10/28/22 12:00 [id number]) Subjective Physical Therapy Visit Type Type Initial Evaluation Visit Start Time 10:25 Visit Stop Time 10:55 Total Visit Minutes 30 Physical Therapy Visit Comments Patient Comments Agreeable to mobility assessment today Patient Goals Make it to his urology appt Therapy Pain Assessment Pain When Pain Assessed At Rest Pain Present Pain Present Denied Pain M4 PT-IP Mobility and Gait Start: 10/28/22 11:41 Freq: Status: Active Protocol: Document 10/28/22 11:42 [facility] (Rec: 10/28/22 12:00 [facility] [id number]) PT-Bed Mobility Assessment Rolling Type of Rolling Roll to Right Level of Assist Standby Assistance Supine to Sit Supine to Sit Standby Assistance Scooting Scooting to Edge of Bed Standby Assistance PT-Transfer Assessment Equipment Transfer Assistive Device Gait Belt Transfers Transfer Destination Wheelchair Transfer Technique Squat Pivot Transfer Ability Level of Assist Contact Guard Assistance Comments Mobility Comments squat pivot 2x w/c to bed. Requires CGA for safety. Cues for proximity of w/c to bed. Pt using good hand placement technique. Able to just clear arm rests but unable to stand fully upright. Gait Assessment Comments Gait Comments Non ambulatory. Pt demonstrated safe and independent propulsion of manual w/c in hospital room and during ADLs with OT. He demo's safe use of brakes. Needed cues/education on w/c proximity to bed for transfers . At home he does not use leg rests. Stair Climbing Assessment Comments Stair Climbing Comments not applicable PT-Balance Assessment Sitting Balance and Reactions Static Sitting Balance Ability Normal Dynamic Sitting Balance Ability Normal Standing Balance and Reactions Static Standing Balance Ability Poor Dynamic Standing Balance Ability Poor Comments Other Balance Tests/Deviations/Treatment standing balance is affected : by squat position/HS length. He is able to stand purely to squat pivot only to w/c. M5 PT-IP Objective Assessments Start: 10/28/22 11:41 Freq: Status: Active Protocol: Document 10/28/22 11:42 [facility] (Rec: 10/28/22 12:00 [facility] [id number]) Orientation Orientation/Cognition Level of Alertness Alert Safety Awareness Understands Safety Issues Memory Description Short Term Impaired Comments Pt often states I am not sure when all this happened or I can't remember in regards to questions about his mobility, when he became w/c bound, etc . Gross Range of Motion Lower Extremity ROM Assessment Bilaterally Impaired Impairments BLE hip/knee flexion contractures. Bilateral knees lacking at least 30 deg to neutral extension. LLE ankle lacking ~5 deg to neutral Strength Lower Extremity Strength Assessment Right Impaired Hip RLE ~4/5 LLE ~3/5 Knee RLE ~4/5 LLE ~3/5 Ankle RLE 5/5 LLE ~2+ to 3/5 Muscle Tone Muscle Tone WNL No Muscle Tone Location Bilateral Type of Tone Rigidity Comments Muscle Tone Comments BLE hamstring and iliopsoas flexion contractures. M6 PT-IP Treatment Start: 10/28/22 11:41 Freq: Status: Active Protocol: Document 10/28/22 11:42 [facility] (Rec: 10/28/22 12:00 [id number]) Physical Therapy Treatment Education Education Provided Safety M7 PT-IP Assessment and Plan Start: 10/28/22 11:41 Freq: Status: Active Protocol: Document 10/28/22 11:42 [facility] (Rec: 10/28/22 12:00 [id number]) PT Summary Assessment and Plan Potential Rehabilitation Potential Fair Status of Condition at Evaluation Stable Summary Impairments ROM,Strength,Balance,Bed Mobility,Transfers,Gait, Activity Tolerance Progress Towards Goals Progressing Toward Goals,Safe For Discharge Assessment Summary Pt admitted from home with constipation. Dx with dehydration and UTI. He has HH services through [facility]. He lives with his spouse who is able to provide some physical assist. His PLOF was modif Ind with squat pivot transfers bed/couch to w/c. Independent with w/c propulsion in home. Pt has home health services but states he was not utilizing bath aide support. Pt states several days for hospitalization his was having to assist him in/out of bed to w/c. CLOF: Pt is demonstrating very similar to what his PLOF is reported as. He was able to transfer 2x squat pivot transfers with hospital w/c and CGA for safety. He is propelling his w /c independently. Recommend d/ c home with HHPT and HHaide. In regards to transfer to vehicle his squat pivot transfer is clearing just enough to transfer from w/c to bed when the set up is very close in proximity. Transfer to a personal vehicle creates a large space without any area for seated support and this could be a fall risk. Recommend d/c home with w/c transportation. Suspect transfers to personal vehicle as a goal for HHPT. No skilled PT needs for inpatient therapy at this time. He is demonstrating at a level he reports is his prior ability. HHPT is crucial in helping him progress to more independent transfers/mobility. Frequency of Treatment Frequency Of Treatment Discharge Discharge Recommendations PT Discharge Recommendations Home with Assistance,Home Health Transportation Needs at Discharge Wheelchair/Cabulance
--- NOTE | 2022-10-28 17:13 | PM.PN.1 ---
Subjective Subjective Interval history: time seen: 8:50am chief complaint: weakness/UTI feeling better today catheter draining clear/yellowish fluids doing well on unasyn even though sensitivities are contradictory complex discharge plan due to transportation issues plan is to discharge tomorrow after voiding trial catheter to be pulled at 9:15am then discharge to [facility] waiting room to see Dr. Perkins then home via cabulance where he already has home health set up. 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 Resp Other: clear to auscultation bilaterally Cardio Other: regular rate irregular rhythm GI Other: soft nontender nondistended Skin Other: no purpura or petechia Neuro General: patient alert, patient awake, patient oriented x3 and moves all extremities Extrem General: full ROM and no pedal edema Psych Appearance: grossly normal Objective Labs 10/27/22 04:10 10/27/22 04:10 [facility] Medical History Atrial fibrillation Atrial flutter Barretts esophagus CHF (congestive heart failure) Chronic atrial fibrillation Chronic cough Chronic heart failure with preserved ejection fraction Degenerative arthritis Eosinophilia GERD (gastroesophageal reflux disease) GI bleed History of cardioversion Iron deficiency anemia Mixed hyperlipidemia Pulmonary fibrosis Spinal stenosis of lumbar region with neurogenic claudication Thrombocytopenia Thrombotic thrombocytopenic purpura (TTP) Surgical History History of coronary angioplasty with insertion of stent Hx of cholecystectomy Hx of tonsillectomy Social History household members: spouse Smoking Status: Never smoker alcohol intake: current Assessment & Plan Assessment & Plan narrative: #Abdominal pain relieved s/p BM normal exam now doing ok on general diet continue sofeteners #Dehydration improving with IVF ok to dc #UTI, catheter associated, present on admission #acute kidney injury continue unasyn - clinical improvement noted?despite C&S catheter initially placed 09/16/2022 in ED for hematuria and what seemed to be acute UTI klebisella on top of chronic urinary retention took bactrim then keflex a month ago - subsequently improved then declined this catheter was swapped out yesterday - continue unasyn with flomax - goal is eventual d/c trial tomorrow morning #Atrial fibrillation rate controlled continue home meds ok to stop tele #hx of TTP stable platelets in 200s.? No change in treatment at this time. #GERD continue home PPI #History of chronic heart failure Doing ok, monitor in context of IVF #hx of pulmonary fibrosis stable, not needing O2 DVT PPX: continue home eliquis code status: DNR MDM: Tory Pro PCP: Miriam dispo:dc to urology waiting room tomorrow after voiding trial. Complex patient with multiple risk factors requiring close monitoring inpatient. time spent: 75 min including documentation exam and coordination of care with specialists Quality VTE Deep Vein Thrombosis/Pulmonary Embolism Present on Admission: No
[2022-10-28] MEDS: PANTOPRAZOLE DR 40 MG TABLET PO (20:20)
[2022-10-29] MEDS: PANTOPRAZOLE DR 40 MG TABLET PO (06:37)
[2022-10-29 07:00] VITALS: BP 139/90; PULSE 96; RESP 18; TEMP 36.9; O2SAT 98
[2022-10-29] MEDS: ATORVASTATIN 20 MG TABLET 40 MG PO (08:54)
[2022-10-29] MEDS: MAGNESIUM HYDROXIDE 30 ML UDC PO (08:54)
[2022-10-29 08:55] VITALS: BP 139/90; PULSE 96
[2022-10-29] MEDS: METOPROLOL ER 25 MG TABLET 12.5 MG PO (08:55)
[2022-10-29] MEDS: APIXABAN 5 MG TABLET 2.5 MG PO (08:55)
[2022-10-29] MEDS: FOLIC ACID 1 MG TABLET PO (08:55)
[2022-10-29] MEDS: TAMSULOSIN 0.4 MG CAPSULE PO (08:55)
--- NOTE | 2022-10-29 09:11 | PM.DS.1 ---
History of Present Illness History of Present Illness Date Patient Seen: 10/29/22 Time Patient Seen: 09:12 Chief complaint: constipation Narrative: chief complaint: catheter / uti / abdominal pain Ate breakfast this morning feeling generally ok still weak but enthusiastic about trial of voiding today plan to d/c to [facility] waiting room then home via cabulance after appointment update: saw urology, Dr. Perkins noted continued residual volume in bladder, replaced catheter and will get him back for cystoscopy later Discharge Providers Provider Date of admission: 10/26/22 00:43 Discharge Date: 10/29/22 Primary care physician: Willy Pineda MD Consults: 10/27/22 09:06 Consult to Occupational Therapy Evaluate & Treat Comment: Physician Instructions: Evaluate and treat Consult to Physical Therapy Evaluate & Treat Comment: Physician Instructions: Evaluate and Treat Discharge provider: Willy Pineda MD Summary Hospital Course Discharge Diagnosis: #Abdominal pain #Dehydration #UTI, catheter associated, present on admission #acute kidney injury #Atrial fibrillation #hx of TTP #GERD #History of chronic heart failure #hx of pulmonary fibrosis Hospital Course: Mr. Pro presented to ED acutely ill with ARANZA and UTI. His catheter was exchanged and he was treated with unasyn and recovered. Urine culture grew klebsiella which looked resistant but seems to be responding to unasyn and IVF and declined to work with PT No issues with ITP this admission. His kidney function improved and he will be discharged on oral levaquin 750 po to complete 5 day course after 3 day IV abx course. Discussed with urology will do voiding trial on morning of DoD then proceed to [facility] outpt clinic. His mobility or lack thereof remains a major complicating factor further exacerbated by his disinclination to address it. Status at Discharge Cognitive/behavioral status at discharge: at baseline, oriented Functional status at discharge: wheelchair bound Overall status at discharge: patient is progressing back to baseline Exam Vital Signs (past 8 hours): - 10/29/22 07:00 10/29/22 07:00 10/29/22 08:55 Temperature 98.4 F Pulse Rate 96 H 96 H Respiratory Rate 18 Blood Pressure 139/90 139/90 Pulse Oximetry 98 98 Oxygen Delivery Method Room Air Oxygen Flow Rate 0 0 Oxygen Delivery Method Room Air Oxygen Flow Rate 0 Narrative Exam Narrative: alert elder watching TV Const Other: thin Resp Other: clear to auscultation bilaterally no crackles Cardio Other: regular rate S1/S2 no pedal edema GI Other: soft nontender nondistended active bowel sounds Skin Other: no petechiae or purpura Neuro General: patient alert, patient awake, patient oriented x3 and moves all extremities Other: grossly deconditioned Objective Labs 10/27/22 04:10 10/27/22 04:10 [facility] Medical History (Updated 10/29/22 @ 16:39 by Lewis Perkins MD) Arthritis Atrial fibrillation Atrial flutter Barretts esophagus CHF (congestive heart failure) Chronic atrial fibrillation Chronic cough Chronic heart failure with preserved ejection fraction Degenerative arthritis Eosinophilia GERD (gastroesophageal reflux disease) GI bleed History of cardioversion Iron deficiency anemia Mixed hyperlipidemia Physical deconditioning Pulmonary fibrosis Spinal stenosis of lumbar region with neurogenic claudication Thrombocytopenia Thrombotic thrombocytopenic purpura (TTP) Urinary retention Surgical History History of coronary angioplasty with insertion of stent Hx of cholecystectomy Hx of tonsillectomy Family History Mother Breast cancer Social History marital status: household members: spouse Smoking Status: Never smoker alcohol intake: current Discharge Assessment & Plan Assessment and Plan Assessment: #Abdominal pain relieved s/p BM normal exam now doing ok on general diet continue sofeteners/magnesium prn #Dehydration #UTI, catheter associated, present on admission #acute kidney injury catheter initially placed 09/16/2022 in ED for hematuria and what seemed to be acute UTI klebisella on top of chronic urinary retention took bactrim then keflex a month ago - subsequently improved then declined this catheter was swapped out on admission - continue flomax with 5 days of levaquin [address] Perkins's office - plan today is to discontinue catheter at 0915 then discharge to [facility] waiting room this afternoon at [address] Perkins. See Dr Perkins note. #Atrial fibrillation rate controlled continue home meds #hx of TTP stable platelets in 200s.? No change in treatment at this time. #GERD continue home PPI #History of chronic heart failure did ok with ivf, no crackles no pedal edema #hx of pulmonary fibrosis stable, not needing O2 DVT PPX: continue home eliquis code status: DNR MDM: Tory Pro PCP: Miriam dispo: dc to urology waiting room today after voiding trial. Complex patient with multiple risk factors requiring close monitoring inpatient. CM: Pt will need cabulance home from urology appointment. time spent: 95 min including documentation exam and coordination of care with specialists Discharge Plan Discharge Plan Patient Disposition: Home Health Service Transfer to: Home Health, Other Provider Discharge Comment: discharge via wheelchair to [facility] waiting room at 215 pm Discharge orders & Medications Prescriptions: New levofloxacin 750 mg tablet 750 mg PO DAILY Qty: 4 0RF Continued folic acid 1 mg Tablet 1 mg PO DAILY potassium chloride 20 mEq tablet,ER particles/crystals 40 meq PO BID Qty: 180 3RF tamsulosin [Flomax] 0.4 mg capsule 0.4 mg PO DAILY 30 Days Qty: 7 0RF atorvastatin 40 mg Tablet 40 mg PO DAILY Rx Instructions: in evening metoprolol succinate 25 mg tablet extended release 24 hr 12.5 mg PO BID Patient Comments: Take 1/2 tablet by mouth twice a day for blood pressure control pantoprazole 40 mg Tablet,Delayed Release (Dr/Ec) 40 mg PO 0700,2100 Qty: 180 1RF Discontinued sulfamethoxazole-trimethoprim [Bactrim DS] 800-160 mg Tablet See Rx Instructions .ROUTE .COMPLEX Rx Instructions: 1 tab orally every Tuesday, Tue, Tuesday sulfamethoxazole-trimethoprim [Bactrim DS] 800-160 mg tablet 1 tab PO BID Qty: 14 0RF No Action apixaban 2.5 mg tablet 2.5 mg PO BID levofloxacin 500 mg tablet 500 mg PO DAILY Qty: 14 1RF Follow up/Referrals: Willy Pineda MD [Primary Care Provider] - Diet/Activity/Treatments Diet: Diet as Tolerated Visit Report/Discharge Packet Instructions: DI for Urinary Tract Infection (UTI), DI for Constipation, How to Prevent Falls, Levofloxacin Stand Alone Forms: Patient Portal/API, Stroke Signs & Symptoms Discharge Data Primary Care Provider: Willy Pineda Discharges patient from system. Discharge Date/Time: 10/29/22 14:00 Quality VTE Deep Vein Thrombosis/Pulmonary Embolism Present on Admission: No
--- NOTE | 2022-10-29 09:29 | CM.DPC ---
Addendum entered by Lauren Reed 10/29/22 17:13: VASCULAR TECHNICIAN was approached by Dr. Pineda, who endorses that [employer] [facility] did not filler picker patient and patient is at Urology dept without transportation. Dr. Pineda states that patient could transport via taxi. VASCULAR TECHNICIAN provides and signs taxi voucher for Urology dept. Dr. Pineda calls patient's and she endorses she can assist with patient's arrival at home. [employer] arrives with concern of patient getting out of car, patient requires two person assist into car but states he can transfer to wheelchair. VASCULAR TECHNICIAN speaks with [facility] regarding lift assist, they state that 911 can be called for lift assist as needed to support patient into home from taxi. Patient d/c'd from urology with [employer] taxi voucher from Urology dept. Patient may require EMS lift assistance upon arrival to home. Lauren Reed, [facility] Addendum entered by Meenakshi Patterson R.N. 10/29/22 16:09: Received a call from [email or web address], stated that they 'could not wait for patient, he still was not ready, and state that they may need to insert a cath. Her charter and tour bus driver had to leave. Called urology office, spoke to clerical receptionist, and let her know that they may need to find transport for patient. Patient Care Secretary indicated, that's not my job description. Spoke to Wei at urologist. Indicated that they need to reinsert cath, patient is a three person transfer, don't know why he was discharged so soon. Asked her if Dr. Perkins had spoken to Dr. Pineda about concerns. Let her know that this DC Supervisor [employer]akers can't find transportation now, may need to discuss medical needs with primary, and may need to contact a family member for home if needed. DC Planners had worked to set up transportation, but the barrier was not knowing how long it would take, and he was retaining urine. Plan at this time is still home, but they may need to contact family members for filler picker. Addendum entered by Meenakshi Patterson R.N. 10/29/22 11:37: DCP Cont: Spoke to Edilia at patient's [employer]. She indicated, they can't transport, but will pay the bill. Gave her [employer] phone number, she will call them with the credit card number. Confirmed with urology that appointment is at 1545, is a 15 minute appointment, should be done by 1500. Updated Gladis at [employer], let her know patient could be a little late. Confirmed that patient's taoism has paid the bill, and patient is updated. Addendum entered by Meenakshi Patterson R.N. 10/29/22 10:49: Called Medhat at [employer], and let him know that patient is discharging today, sent resumption orders, added bath aide. Spoke to Gladis at [facility], let her know that patient will be paying for transport by check. Meenakshi Patterson RN/Phone Triage Specialist Original Note: DCP Cont: Patient is supposed to be picked up by wheel chair van after his urology appointment. Checked in with patient, he is not sure what company he has used. He gave permission to call spouse, left a message on her voice mail. Went ahead and set up [employer] [facility], with filler picker at 1500 from urology. Cost is $142.00. Updated patient, and left spouse a message. They would filler picker patient from urology downstairs at 1500. P: Patient is supposed to discharge to urology appointment at 1400, then, will go home via [employer]. Meenakshi Patterson RN/Phone Triage Specialist
--- NOTE | 2022-10-29 14:15 | PC.NURSE ---
Pt had assistance getting dressed with RAIL DOWELING MACHINE OPERATOR. RAIL DOWELING MACHINE OPERATOR had hospital pants to give pt since pants he had were soiled. Reviewed paperwork regarding new abx, prevention of constipation and UTIs, as well as the need to take the full abx treatment. Med is ready for p/u in [facility]. [place] and RN helped pt into wheelchair with all his belongings to be escorted to [facility] appt @ 1415. Pt left unit @ 1400. Checked pt into Urology and assured pt that a wheelchair taxi will be here @ 1500 to p/u pt to drive him home. Pt is currently awaiting appt.
== END 2022-10-29 14:00 | disposition home health service (06) | DRG 699 ==
LOC: ED 23:21 → AC 10-26 00:44
PROVIDERS: Admitting Provider Family Medicine; Emergency Provider Emergency Medicine; PCP Family Medicine; Referring Provider Emergency Medicine; Visit Provider Family Medicine
DX: T83.598A Infection and inflammatory reaction due to other prosthetic device, implant and graft in urinary system, initial encounter (principal); N17.9 Acute kidney failure, unspecified; N39.0 Urinary tract infection, site not specified; R10.9 Unspecified abdominal pain; E86.0 Dehydration; K21.9 Gastro-esophageal reflux disease without esophagitis; I48.91 Unspecified atrial fibrillation; B96.1 Klebsiella pneumoniae [K. pneumoniae] as the cause of diseases classified elsewhere; E78.2 Mixed hyperlipidemia; Z20.822 Contact with and (suspected) exposure to COVID-19; Z79.01 Long term (current) use of anticoagulants; Z66 Do not resuscitate; R33.9 Retention of urine, unspecified; K59.00 Constipation, unspecified; R53.81 Other malaise
CPT/HCPCS: 36415; 51798; 71045; 74019; 80053; 81003; 81015; 82550; 82570; 83605; 83690; 83735; 84145; 84300; 84484; 85025; 85610; 85730; 87040; 87077; 87086; 87186; 87635; 93005; 96361; 96365; 97161; 97166; 97530; 99215; 99284; C9803; J0295; J0696

== ENCOUNTER 2022-11-13 10:18 | Inpatient (IN) | payer OTHER, SELFPAY ==
[2022-11-01 13:17] VITALS: PULSE 52; RESP 16; O2SAT 98; BMI 23.0
[2022-11-13] VITALS (108 sets, daily range): BP systolic 70–116; BP diastolic 47–86; PULSE 92–140; RESP 8–38; TEMP 36.4–36.9; O2SAT 81–99; BMI 22.3
--- NOTE | 2022-11-13 10:29 | DI.RAD.S_ITS ---
PROCEDURE: XR CHEST 1V INDICATIONS: suspected sepsis TECHNIQUE: One view of the chest was acquired. COMPARISON: [facility], CR, XR CHEST 1V, 10/25/2022, 20:37. FINDINGS: Surgical changes and devices: None. Lungs and pleura: Lungs are clear. No pleural effusions or pneumothorax. Mediastinum: Heart size enlarged. Atherosclerotic vascular coronary artery calcification noted. There is elevation left hemidiaphragm. Bones and chest wall: No suspicious bony lesions. Overlying soft tissues appear unremarkable. Generalized decrease in osseous mineralization noted. IMPRESSION: No acute cardiopulmonary findings Approved by: Jonel Pantoja M.D. on 11/13/2022 at 10:45
[2022-11-13] MEDS: SODIUM CHLORIDE 0.9% 1,000 ML 1000 ML IV ×3 (11:00→18:10)
[2022-11-13 11:26] LABS: Add Manual Diff / Slide Review NO; Basophils Absolute Auto 100 /uL (0-100); Basophils Percent Auto 0.5 % (0-2); Eosinophils Absolute Auto 0 /uL (0-450); Eosinophils Percent Auto 0.2 % (2-4); Hemoglobin 11.6 g/dL (13.5-17.5); Lymphocytes Absolute Auto 600 /uL (1100-4500); Lymphocytes Percent Auto 4.4 % (25-40); Mean Corpuscular HGB Conc 31.2 % (30-36); Mean Corpuscular Hemoglobin 22.3 PG (26-34); Mean Corpuscular Volume 71.5 fL (80-100); Monocytes Absolute Auto 1300 /uL (0-900); Monocytes Percent Auto 8.6 % (3-14); Neutrophils Absolute Auto 12800 /uL (1500-7000); Neutrophils Percent Auto 86.3 % (50-75); Platelet Count 268 X10^3/uL (150-400); Red Blood Cell Count 5.17 X10^6/uL (4.5-5.9); Red Cell Distribution Width 20.8 % (11.6-14.8); White Blood Cell Count 14.8 X10^3/uL (4.5-11.0)
[2022-11-13 11:37] LABS: INR 2.2 (0.9-1.3)
[2022-11-13 11:40] LABS: PTT Partial Thromboplastin Tim 36 SECONDS (26-36)
[2022-11-13 11:41] LABS: Lactate (Lactic Acid) 2.6 mmol/L (0.7-2.1)
[2022-11-13 11:43] LABS: Alanine Aminotransferase 16 IU/L (<50); Albumin 3.2 g/dL (3.5-5.0); Albumin Globulin Ratio 1.1 (1.0-2.8); Alkaline Phosphatase 89 U/L (38-126); Aspartate Aminotransferase 25 IU/L (17-59); BUN Creatinine Ratio 24.6 (6-22); Bilirubin Total 1.3 mg/dL (0.2-1.3); Blood Urea Nitrogen 32 mg/dL (9-20); Calcium 7.9 mg/dL (8.4-10.2); Carbon Dioxide 24 mmol/L (22-32); Chloride 104 mmol/L (98-107); Estimated Glomerular Filt Rate 56 mL/min (>60); Globulin 2.9 g/dL (1.7-4.1); Glucose 100 mg/dL (80-110); HEMOLYSIS < 15 (0-50); Lipase 49 U/L (23-300); Potassium 3.9 mmol/L (3.4-5.1); Sodium 136 mmol/L (137-145); Total Protein 6.1 g/dL (6.3-8.2)
[2022-11-13 11:44] LABS: Creatine Kinase 34 U/L (55-170); Magnesium 1.5 mg/dL (1.6-2.3)
--- NOTE | 2022-11-13 11:45 | ED_ITS ---
HPI - Weakness General Chief complaint: Weakness Stated complaint: Weakness, Hypotensive Time Seen by Provider: 11/13/22 11:33 Source: patient and EMS Mode of arrival: EMS History of Present Illness HPI Narrative: Patient brought in by ambulance from home. Patient states he has been weak and fatigued for the past 1 week. Denies chest pain shortness breath or palpitations. No vomiting diarrhea no black or bloody stools. Patient has h istory of CHF atrial fibrillation is on Eliquis. Primary care is Dr Anderson. Patient seen earlier this month for bowel incontinence. Patient states he is not been eating or drinking very much because no appetite this past week. He gets meals on wheels at home. He states his has not been feeling well this week. Patient states does not have active cardiology services. Patient has urinary retention and has a Mccormack catheter. Patient is cachectic appearing. Denies any cough cold congestion fever chills. Patient seen discharged here October 29, 2022 from the hospital. Was admitted. For dehydration UTI acute kidney injury Related Data Home Medications Medication Instructions Recorded Confirmed atorvastatin 40 mg tablet 40 mg PO DAILY 12/02/20 11/13/22 metoprolol succinate 25 mg 12.5 mg PO BID 12/28/21 11/13/22 tablet,extended release 24 hr folic acid 1 mg tablet 1 mg PO DAILY 04/19/22 11/13/22 apixaban 2.5 mg tablet 2.5 mg PO BID 10/29/22 11/13/22 Previous Rx's Medication Instructions Recorded pantoprazole 40 mg tablet,delayed 40 mg PO 0700,2100 #180 tabs 01/02/22 release tamsulosin 0.4 mg capsule (Flomax) 0.4 mg PO DAILY 30 days #7 caps 10/29/22 acetaminophen 325 mg tablet 650 mg PO Q6H PRN Fever/Mild Pain 11/18/22 (1-3) #20 tabs ondansetron 4 mg disintegrating 4 mg sublingual NOW PRN Nausea And 11/18/22 tablet Vomiting #30 tabs potassium chloride 20 mEq/15 mL 40 meq (30 mL) PO BID 30 days 11/18/22 oral liquid #1,800 mL Allergies Allergy/AdvReac Type Severity Reaction Status Date / Time No Known Drug Allergies Allergy Verified 10/29/22 14:29 Review of Systems Review of Systems Narrative: GENERAL: negative chills, positive fatigue, malaise, negative fever, sweats. HEENT: negative sinus pain, ear pain, sore throat RESPIRATORY: negative dyspnea, cough CARDIOVASCULAR: negative chest pain, palpitations GASTROINTESTINAL: negative nausea, vomiting, abdominal pain : negative dysuria, frequency, hematuria MUSCULOSKELETAL: negative muscle or bony pain SKIN: negative rash, skin lesions NEUROLOGIC: negative weakness, numbness ROS Unobtainable: All systems reviewed & are unremarkable except as noted in HPI and below Patient History Medical History Arthritis Atrial fibrillation Atrial flutter Barretts esophagus CHF (congestive heart failure) Chronic atrial fibrillation Chronic cough Chronic heart failure with preserved ejection fraction Degenerative arthritis Eosinophilia GERD (gastroesophageal reflux disease) GI bleed History of cardioversion Iron deficiency anemia Mixed hyperlipidemia Physical deconditioning Pulmonary fibrosis Spinal stenosis of lumbar region with neurogenic claudication Thrombocytopenia Thrombotic thrombocytopenic purpura (TTP) Urinary retention Surgical History History of coronary angioplasty with insertion of stent Hx of cholecystectomy Hx of tonsillectomy Family History Mother Breast cancer Social History marital status: household members: spouse Smoking Status: Never smoker alcohol intake: current Smoking Status: Never smoker alcohol intake frequency: holidays/special occasions only Substance Use Type: does not use Exam Narrative Exam Narrative: GENERAL: in no distress, not toxic not dyspneic, patient is cachectic appearing HEAD: Normocephalic. EYES: Pupils equal round ENT: Mucous membranes moist. NECK: Trachea midline. CARDIOVASCULAR: Tachycardia with irregularly irregular rate and rhythm RESPIRATORY: Clear to auscultation. Breath sounds equal bilaterally. No wheezes, rales, or rhonchi. GASTROINTESTINAL: Abdomen soft, non-tender abdomen soft flat nontender no peritoneal signs bowel sounds are present EXTREMITIES: No gross deformities. BACK: No flank tenderness. NEURO: AOx4. SKIN: Warm and dry PSYCH: Not anxious, is cooperative Initial Vital Signs Initial Vital Signs: Vital Signs Temperature 98.4 F 11/13/22 10:29 Pulse Rate 120 H 11/13/22 10:29 Respiratory Rate 17 11/13/22 10:29 Blood Pressure 94/57 L 04/22/23 10:29 Pulse Oximetry 94 11/13/22 10:29 Oxygen Delivery Method Room Air 11/13/22 10:29 Course Orders Ordered: Discontinued Medications Acetaminophen (Acetaminophen 325 Mg Tablet) 975 mg PO NOW ONE Stop: 11/13/22 11:42 Last Admin: 11/13/22 11:56 Dose: 975 mg Documented By: IDRIS Acetaminophen (Acetaminophen 325 Mg Tablet) 650 mg PO Q6H PRN PRN Reason: Fever/Mild Pain (1-3) Last Admin: 11/15/22 02:09 Dose: 650 mg Documented By: Admin: 11/14/22 02:33 Dose: 650 mg Documented By: Admin: 11/13/22 20:08 Dose: 650 mg Documented By: ALVINO Hydrocodone Bitart/Acetaminophen (Hydrocodone/Acet 5/325 Tablet) 1 tab PO Q4H PRN PRN Reason: Pain, Moderate (4-6) Last Admin: 11/16/22 10:27 Dose: 1 tab Documented By: ISABELLE Apixaban (Apixaban 5 Mg Tablet) 2.5 mg PO BID [facility] Last Admin: 11/18/22 08:23 Dose: 2.5 mg Documented By: Admin: 11/17/22 21:19 Dose: 2.5 mg Documented By: Admin: 11/17/22 09:21 Dose: 2.5 mg Documented By: Admin: 11/16/22 20:50 Dose: 2.5 mg Documented By: Admin: 11/16/22 09:13 Dose: 2.5 mg Documented By: Admin: 11/15/22 21:09 Dose: 2.5 mg Documented By: Admin: 11/15/22 08:35 Dose: 2.5 mg Documented By: Admin: 11/14/22 20:03 Dose: 2.5 mg Documented By: Admin: 11/14/22 08:13 Dose: 2.5 mg Documented By: Admin: 11/13/22 20:08 Dose: 2.5 mg Documented By: ALVINO Atorvastatin Calcium (Atorvastatin 20 Mg Tablet) 40 mg PO DAILY [facility] Last Admin: 11/18/22 08:24 Dose: 40 mg Documented By: Admin: 11/17/22 09:21 Dose: 40 mg Documented By: Admin: 11/16/22 09:15 Dose: 40 mg Documented By: Admin: 11/15/22 08:36 Dose: 40 mg Documented By: Admin: 11/14/22 08:13 Dose: 40 mg Documented By: EVAN Digoxin (Digoxin 500 Mcg/2 Ml Ampul) 250 mcg IV NOW ONE Stop: 11/15/22 05:35 Last Admin: 11/15/22 06:27 Dose: 250 mcg Documented By: KAIA Diltiazem HCl (Diltiazem 5 Mg/Ml Sdv) 10 mg IV NOW ONE Stop: 11/13/22 13:47 Last Admin: 11/13/22 14:43 Dose: 10 mg Documented By: AT Folic Acid (Folic Acid 1 Mg Tablet) 1 mg PO DAILY [facility] Last Admin: 11/18/22 08:24 Dose: 1 mg Documented By: Admin: 11/17/22 09:20 Dose: 1 mg Documented By: Admin: 11/16/22 09:15 Dose: 1 mg Documented By: Admin: 11/15/22 08:36 Dose: 1 mg Documented By: Admin: 11/14/22 08:13 Dose: 1 mg Documented By: EVAN Sodium Chloride (Normal Saline 0.9%) 1,000 mls @ 1,000 mls/hr IV BOLUS ONE Stop: 11/13/22 11:28 Last Infusion: 11/13/22 11:51 Dose: 0 mls/hr Documented By: Admin: 11/13/22 11:00 Dose: 1,000 mls/hr Documented By: IDRIS Sodium Chloride (Normal Saline 0.9%) 500 mls @ 1,000 mls/hr IV BOLUS ONE Stop: 11/13/22 12:11 Last Infusion: 11/13/22 12:26 Dose: 0 mls/hr Documented By: Admin: 11/13/22 11:52 Dose: 1,000 mls/hr Documented By: IDRIS Sodium Chloride (Normal Saline 0.9%) 1,000 mls @ 1,000 mls/hr IV BOLUS ONE Stop: 11/13/22 14:35 Last Infusion: 11/13/22 14:37 Dose: 0 mls/hr Documented By: Admin: 11/13/22 13:37 Dose: 1,000 mls/hr Documented By: BRUNO Sodium Chloride (Normal Saline 0.9%) 500 mls @ 1,000 mls/hr IV BOLUS ONE Stop: 11/13/22 15:50 Last Infusion: 11/13/22 16:13 Dose: 0 mls/hr Documented By: Admin: 11/13/22 15:24 Dose: 1,000 mls/hr Documented By: AT NOREPINEPHRINE BITARTRATE/D5W (Levophed) 4 mg in 250 mls @ 30 mls/hr IV TITRATE FE; Protocol Last Titration: 11/14/22 07:05 Dose: 0 mcg/min, 0 mls/hr Documented By: Titration: 11/14/22 04:36 Dose: 2 mcg/min, 7.5 mls/hr Documented By: Titration: 11/14/22 01:41 Dose: 3 mcg/min, 11.25 mls/hr Documented By: Titration: 11/13/22 17:22 Dose: 4 mcg/min, 15 mls/hr Documented By: Admin: 11/13/22 16:43 Dose: 8 mcg/min, 30 mls/hr Documented By: AMIRA Ceftriaxone Sodium 2,000 mg/ (Sodium Chloride) 100 mls @ 200 mls/hr IV NOW ONE Stop: 11/13/22 16:32 Last Infusion: 11/13/22 17:06 Dose: 0 mls/hr Documented By: Admin: 11/13/22 16:43 Dose: 200 mls/hr Documented By: IDRIS Sodium Chloride (Normal Saline 0.9%) 1,000 mls @ 1,000 mls/hr IV BOLUS ONE Stop: 11/13/22 18:56 Last Admin: 11/13/22 18:10 Dose: 1,000 mls/hr Documented By: EVAN Lactated Ringer's (Lactated Ringers) 1,000 mls @ 150 mls/hr IV CONT FE Last Infusion: 11/15/22 10:58 Dose: 0 mls/hr Documented By: Admin: 11/15/22 10:39 Dose: 150 mls/hr Documented By: Infusion: 11/15/22 10:15 Dose: 84 mls/hr Documented By: Admin: 11/14/22 22:20 Dose: 84 mls/hr Documented By: Infusion: 11/14/22 18:01 Dose: 84 mls/hr Documented By: Admin: 11/14/22 06:06 Dose: 84 mls/hr Documented By: Infusion: 11/14/22 06:06 Dose: 84 mls/hr Documented By: Admin: 11/13/22 18:13 Dose: 84 mls/hr Documented By: EVAN Piperacillin Sod/Tazobactam (Sod 4.5 gm/ Sodium Chloride) 100 mls @ 25 mls/hr IV Q8H FE Last Infusion: 11/15/22 10:00 Dose: 0 mls/hr Documented By: Admin: 11/15/22 05:14 Dose: 25 mls/hr Documented By: Infusion: 11/15/22 01:30 Dose: 0 mls/hr Documented By: Admin: 11/14/22 21:15 Dose: 25 mls/hr Documented By: Infusion: 11/14/22 19:00 Dose: 0 mls/hr Documented By: Admin: 11/14/22 13:31 Dose: 25 mls/hr Documented By: Infusion: 11/14/22 09:46 Dose: 25 mls/hr Documented By: Admin: 11/14/22 05:46 Dose: 25 mls/hr Documented By: ALVINO Piperacillin Sod/Tazobactam (Sod 4.5 gm/ Sodium Chloride) 100 mls @ 200 mls/hr IV Q8H FE Piperacillin Sod/Tazobactam (Sod 4.5 gm/ Sodium Chloride) 100 mls @ 200 mls/hr IV NOW ONE Stop: 11/14/22 01:29 Last Infusion: 11/14/22 01:35 Dose: 0 mls/hr Documented By: Admin: 11/14/22 01:02 Dose: 200 mls/hr Documented By: ALVINO Sodium Chloride (Normal Saline 0.9%) 500 mls @ 500 mls/hr IV NOW ONE Stop: 11/15/22 06:44 Last Admin: 11/15/22 05:40 Dose: 500 mls/hr Documented By: KAIA Piperacillin Sod/Tazobactam (Sod 3.375 gm/ Sodium Chloride) 100 mls @ 25 mls/hr IV Q8H FE Last Infusion: 11/18/22 09:39 Dose: 25 mls/hr Documented By: Admin: 11/18/22 06:22 Dose: 25 mls/hr Documented By: Infusion: 11/18/22 01:20 Dose: 25 mls/hr Documented By: Admin: 11/17/22 21:20 Dose: 25 mls/hr Documented By: Infusion: 11/17/22 19:11 Dose: 25 mls/hr Documented By: Admin: 11/17/22 15:11 Dose: 25 mls/hr Documented By: Infusion: 11/17/22 09:38 Dose: 25 mls/hr Documented By: Admin: 11/17/22 05:38 Dose: 25 mls/hr Documented By: Infusion: 11/17/22 02:02 Dose: 25 mls/hr Documented By: Admin: 11/16/22 22:02 Dose: 25 mls/hr Documented By: Infusion: 11/16/22 17:26 Dose: 25 mls/hr Documented By: Admin: 11/16/22 13:26 Dose: 25 mls/hr Documented By: Infusion: 11/16/22 10:14 Dose: 0 mls/hr Documented By: Admin: 11/16/22 05:54 Dose: 25 mls/hr Documented By: Infusion: 11/16/22 01:20 Dose: 0 mls/hr Documented By: Admin: 11/15/22 21:11 Dose: 25 mls/hr Documented By: Infusion: 11/15/22 18:00 Dose: 0 mls/hr Documented By: Admin: 11/15/22 13:38 Dose: 25 mls/hr Documented By: ISABELLE Sodium Chloride (Normal Saline 0.9%) 1,000 mls @ 150 mls/hr IV CONT FE Last Admin: 11/16/22 10:10 Dose: 150 mls/hr Documented By: Infusion: 11/16/22 06:42 Dose: 150 mls/hr Documented By: Admin: 11/16/22 00:01 Dose: 150 mls/hr Documented By: Infusion: 11/16/22 00:01 Dose: 150 mls/hr Documented By: Admin: 11/15/22 17:25 Dose: 150 mls/hr Documented By: Infusion: 11/15/22 17:25 Dose: 150 mls/hr Documented By: Admin: 11/15/22 10:57 Dose: 150 mls/hr Documented By: ISABELLE Lactated Ringer's (Lactated Ringers) 1,000 mls @ 1,000 mls/hr IV BOLUS ONE Stop: 11/15/22 11:49 Last Infusion: 11/15/22 12:00 Dose: 0 mls/hr Documented By: Admin: 11/15/22 10:57 Dose: 1,000 mls/hr Documented By: ISABELLE Sodium Chloride (Normal Saline 0.9%) 1,000 mls @ 84 mls/hr IV CONT FE Last Infusion: 11/18/22 09:39 Dose: 84 mls/hr Documented By: Admin: 11/17/22 23:10 Dose: 84 mls/hr Documented By: Infusion: 11/17/22 08:44 Dose: 84 mls/hr Documented By: Admin: 11/16/22 20:49 Dose: 84 mls/hr Documented By: AGGlendy Infusion: 11/16/22 20:49 Dose: 84 mls/hr Documented By: AGGlendy Infusion: 11/16/22 16:19 Dose: 84 mls/hr Documented By: Infusion: 11/16/22 14:11 Dose: 150 mls/hr Documented By: Admin: 11/16/22 12:37 Dose: 84 mls/hr Documented By: ISABELLE Magnesium Sulfate (Magnesium Sulfate) 2 gm in 50 mls @ 25 mls/hr IV NOW ONE Stop: 11/16/22 14:59 Last Infusion: 11/16/22 14:11 Dose: 0 mls/hr Documented By: ISABELLE Co-signed By: JENIFER Admin: 11/16/22 13:25 Dose: 25 mls/hr Documented By: ISABELLE Co-signed By: JJY Magnesium Sulfate (Magnesium Sulfate) 2 gm in 50 mls @ 25 mls/hr IV NOW ONE Stop: 11/17/22 10:47 Last Admin: 11/17/22 09:29 Dose: 25 mls/hr Documented By: SUKHI Co-signed By: KIARRA Magnesium Chloride (Magnesium Chloride 64 Mg Tablet) 128 mg PO NOW ONE Stop: 11/15/22 09:24 Last Admin: 11/15/22 09:59 Dose: 128 mg Documented By: ISABELLE Magnesium Oxide (Magnesium Oxide 400 Mg Tablet) 400 mg PO BID FE Stop: 11/18/22 00:00 Last Admin: 11/17/22 21:19 Dose: 400 mg Documented By: Admin: 11/17/22 09:20 Dose: 400 mg Documented By: Admin: 11/16/22 20:50 Dose: 400 mg Documented By: Admin: 11/16/22 09:15 Dose: 400 mg Documented By: ISABELLE Metoprolol Succinate (Metoprolol Er 25 Mg Tablet) 12.5 mg PO BID [facility] Last Admin: 11/18/22 08:24 Dose: 12.5 mg Documented By: Admin: 11/17/22 21:19 Dose: 12.5 mg Documented By: Admin: 11/17/22 09:20 Dose: 12.5 mg Documented By: Admin: 11/16/22 20:51 Dose: 12.5 mg Documented By: Admin: 11/16/22 09:14 Dose: 12.5 mg Documented By: Admin: 11/15/22 21:10 Dose: 12.5 mg Documented By: Admin: 11/15/22 09:47 Dose: Not Given Documented By: Admin: 11/14/22 21:14 Dose: 12.5 mg Documented By: Admin: 11/14/22 16:31 Dose: 12.5 mg Documented By: EVAN Metoprolol Tartrate (Metoprolol Tartrate 5 Mg/5 Ml Inj) 5 mg IV NOW ONE Stop: 11/14/22 18:19 Last Admin: 11/14/22 18:21 Dose: 5 mg Documented By: EVAN Naloxone HCl (Naloxone 0.4 Mg/Ml Vial) 0.2 mg IV Q2MIN PRN PRN Reason: Opiate Reversal Ondansetron HCl (Ondansetron 4 Mg Odt) 4 mg SL NOW PRN PRN Reason: Nausea And Vomiting Ondansetron HCl (Ondansetron 4 Mg/2 Ml Inj) 4 mg IV NOW PRN PRN Reason: Nausea And Vomiting Pantoprazole Sodium (Pantoprazole Dr 40 Mg Tablet) 40 mg PO 0700,2100 [facility] Last Admin: 11/18/22 06:21 Dose: 40 mg Documented By: Admin: 11/17/22 23:07 Dose: 40 mg Documented By: Admin: 11/17/22 09:20 Dose: 40 mg Documented By: Admin: 11/16/22 20:51 Dose: 40 mg Documented By: Admin: 11/16/22 08:17 Dose: 40 mg Documented By: Admin: 11/15/22 21:09 Dose: 40 mg Documented By: Admin: 11/15/22 07:47 Dose: 40 mg Documented By: Admin: 11/14/22 20:02 Dose: 40 mg Documented By: Admin: 11/14/22 06:06 Dose: 40 mg Documented By: Admin: 11/13/22 20:08 Dose: 40 mg Documented By: ALVINO Potassium Chloride (Potassium Chloride 20 Meq Tab) 40 meq PO BID [facility] Last Admin: 11/14/22 08:13 Dose: 40 meq Documented By: Admin: 11/13/22 20:08 Dose: 40 meq Documented By: ALVINO Potassium Chloride (Potassium Chloride 20 Meq/15 Ml Udc) 40 meq PO BID [facility] Last Admin: 11/18/22 08:23 Dose: 40 meq Documented By: Admin: 11/17/22 21:19 Dose: 40 meq Documented By: Admin: 11/17/22 09:19 Dose: 40 meq Documented By: Admin: 11/16/22 20:50 Dose: 40 meq Documented By: Admin: 11/16/22 09:15 Dose: 40 meq Documented By: Admin: 11/15/22 21:09 Dose: 40 meq Documented By: Admin: 11/15/22 08:36 Dose: 40 meq Documented By: Admin: 11/14/22 20:18 Dose: 40 meq Documented By: KAIA Sodium Chloride (Sodium Chloride 0.9% 500 Ml) 500 ml IV NOW ONE Stop: 11/15/22 05:41 Tamsulosin HCl (Tamsulosin 0.4 Mg Capsule) 0.4 mg PO DAILY [facility] Last Admin: 11/18/22 08:23 Dose: 0.4 mg Documented By: Admin: 11/17/22 09:20 Dose: 0.4 mg Documented By: Admin: 11/16/22 09:15 Dose: 0.4 mg Documented By: Admin: 11/15/22 08:36 Dose: 0.4 mg Documented By: Admin: 11/14/22 08:13 Dose: 0.4 mg Documented By: EVAN Vital Signs Vital signs: Vital Signs - 8 hr 11/13/22 10:29 11/13/22 11:09 11/13/22 11:10 Temperature 98.4 F Pulse Rate 120 H 119 H 116 H Respiratory Rate 17 27 H 25 H Blood Pressure 94/57 L Pulse Oximetry 94 97 97 Oxygen Delivery Method Room Air Room Air 11/13/22 11:10 11/13/22 11:15 11/13/22 11:20 Temperature Pulse Rate 125 H Respiratory Rate 25 H Blood Pressure 94/53 L 99/60 Pulse Oximetry 96 Oxygen Delivery Method 11/13/22 11:20 11/13/22 11:30 11/13/22 11:30 Temperature Pulse Rate 121 H 125 H Respiratory Rate 33 H 29 H Blood Pressure 84/58 L Pulse Oximetry 96 97 Oxygen Delivery Method 11/13/22 11:31 11/13/22 11:32 11/13/22 11:32 Temperature Pulse Rate 121 H 123 H Respiratory Rate 22 27 H Blood Pressure 84/63 L Pulse Oximetry 97 97 Oxygen Delivery Method Room Air 11/13/22 11:40 11/13/22 11:40 11/13/22 11:45 Temperature Pulse Rate 118 H 126 H Respiratory Rate 38 H 24 Blood Pressure 83/64 L Pulse Oximetry 96 97 Oxygen Delivery Method 11/13/22 11:48 11/13/22 11:48 11/13/22 11:50 Temperature Pulse Rate 135 H Respiratory Rate 33 H Blood Pressure 91/72 89/54 L Pulse Oximetry 96 Oxygen Delivery Method 11/13/22 11:50 11/13/22 12:00 11/13/22 12:00 Temperature Pulse Rate 123 H 123 H Respiratory Rate 26 H 24 Blood Pressure 83/55 L Pulse Oximetry 96 96 Oxygen Delivery Method 11/13/22 12:10 11/13/22 12:10 11/13/22 12:15 Temperature Pulse Rate 123 H 128 H Respiratory Rate 17 21 Blood Pressure 91/65 Pulse Oximetry 96 96 Oxygen Delivery Method 11/13/22 12:20 11/13/22 12:20 11/13/22 12:30 Temperature Pulse Rate 126 H Respiratory Rate 19 Blood Pressure 99/74 88/69 L Pulse Oximetry 95 Oxygen Delivery Method 11/13/22 12:30 11/13/22 12:40 11/13/22 12:40 Temperature Pulse Rate 124 H 128 H Respiratory Rate 19 19 Blood Pressure 92/70 Pulse Oximetry 96 97 Oxygen Delivery Method Room Air 11/13/22 12:50 11/13/22 12:50 11/13/22 12:55 Temperature Pulse Rate 133 H 131 H Respiratory Rate 17 19 Blood Pressure 83/62 L Pulse Oximetry 97 97 Oxygen Delivery Method 11/13/22 12:55 11/13/22 13:00 11/13/22 13:00 Temperature Pulse Rate 140 H Respiratory Rate 19 Blood Pressure 94/65 99/71 Pulse Oximetry 98 Oxygen Delivery Method 11/13/22 13:10 11/13/22 13:10 11/13/22 13:20 Temperature Pulse Rate 126 H Respiratory Rate 19 Blood Pressure 84/55 L 83/56 L Pulse Oximetry 98 Oxygen Delivery Method 11/13/22 13:20 11/13/22 13:30 11/13/22 13:30 Temperature Pulse Rate 131 H 138 H Respiratory Rate 16 14 Blood Pressure 72/54 L Pulse Oximetry 98 98 Oxygen Delivery Method Room Air Room Air 11/13/22 13:40 11/13/22 13:40 11/13/22 13:50 Temperature Pulse Rate 123 H Respiratory Rate 12 Blood Pressure 88/60 L 90/57 L Pulse Oximetry 97 Oxygen Delivery Method Room Air 11/13/22 13:50 11/13/22 13:59 11/13/22 14:00 Temperature Pulse Rate 125 H 121 H Respiratory Rate 18 14 Blood Pressure 91/67 Pulse Oximetry 97 97 Oxygen Delivery Method Room Air 11/13/22 14:00 11/13/22 14:10 11/13/22 14:10 Temperature Pulse Rate 119 H 120 H Respiratory Rate 15 19 Blood Pressure 89/62 L Pulse Oximetry 97 98 Oxygen Delivery Method 11/13/22 14:20 11/13/22 14:20 11/13/22 14:30 Temperature Pulse Rate 114 H Respiratory Rate 17 Blood Pressure 87/60 L 91/55 L Pulse Oximetry Oxygen Delivery Method 11/13/22 14:30 11/13/22 14:43 11/13/22 14:40 Temperature Pulse Rate 123 H 118 H Respiratory Rate 20 Blood Pressure 89/52 L 82/54 L Pulse Oximetry 92 Oxygen Delivery Method Room Air 11/13/22 14:40 11/13/22 14:43 11/13/22 14:43 Temperature Pulse Rate 125 H 121 H Respiratory Rate 20 16 Blood Pressure 89/52 L Pulse Oximetry Oxygen Delivery Method 11/13/22 14:50 11/13/22 14:50 11/13/22 14:53 Temperature Pulse Rate 115 H 96 H Respiratory Rate 17 14 Blood Pressure 74/47 L Pulse Oximetry 98 94 Oxygen Delivery Method 11/13/22 14:53 11/13/22 14:55 11/13/22 14:55 Temperature Pulse Rate 97 H Respiratory Rate 13 Blood Pressure 70/49 L 70/47 L Pulse Oximetry 93 Oxygen Delivery Method 11/13/22 14:57 11/13/22 14:58 11/13/22 14:58 Temperature Pulse Rate 96 H 93 H Respiratory Rate 16 16 Blood Pressure 74/50 L Pulse Oximetry 92 94 Oxygen Delivery Method Room Air 11/13/22 15:00 11/13/22 15:00 11/13/22 15:03 Temperature Pulse Rate 96 H 95 H Respiratory Rate 16 23 Blood Pressure 72/52 L Pulse Oximetry 94 92 Oxygen Delivery Method 11/13/22 15:03 11/13/22 15:05 11/13/22 15:05 Temperature Pulse Rate 98 H Respiratory Rate 17 Blood Pressure 74/54 L 80/52 L Pulse Oximetry 97 Oxygen Delivery Method 11/13/22 15:08 11/13/22 15:08 11/13/22 15:10 Temperature Pulse Rate 96 H Respiratory Rate 16 Blood Pressure 81/56 L 82/54 L Pulse Oximetry 96 Oxygen Delivery Method 11/13/22 15:10 11/13/22 15:13 11/13/22 15:13 Temperature Pulse Rate 96 H 96 H Respiratory Rate 21 18 Blood Pressure 76/51 L Pulse Oximetry 96 96 Oxygen Delivery Method 11/13/22 15:15 11/13/22 15:15 11/13/22 15:18 Temperature Pulse Rate 95 H Respiratory Rate 18 Blood Pressure 77/54 L 79/54 L Pulse Oximetry 95 Oxygen Delivery Method 11/13/22 15:18 11/13/22 15:20 11/13/22 15:20 Temperature Pulse Rate 96 H 103 H Respiratory Rate 17 18 Blood Pressure 82/57 L Pulse Oximetry 95 95 Oxygen Delivery Method 11/13/22 15:23 11/13/22 15:23 11/13/22 15:25 Temperature Pulse Rate 102 H Respiratory Rate 18 Blood Pressure 79/62 L 80/53 L Pulse Oximetry 94 Oxygen Delivery Method 11/13/22 15:25 11/13/22 15:28 11/13/22 15:28 Temperature Pulse Rate 102 H 92 H Respiratory Rate 18 17 Blood Pressure 82/58 L Pulse Oximetry 94 94 Oxygen Delivery Method Room Air 11/13/22 15:30 11/13/22 15:30 11/13/22 15:33 Temperature Pulse Rate 105 H Respiratory Rate 21 Blood Pressure 72/56 L 82/56 L Pulse Oximetry 93 Oxygen Delivery Method 11/13/22 15:33 11/13/22 15:35 11/13/22 15:35 Temperature Pulse Rate 107 H 105 H Respiratory Rate 19 18 Blood Pressure 86/63 L Pulse Oximetry 96 95 Oxygen Delivery Method 11/13/22 15:38 11/13/22 15:38 11/13/22 15:40 Temperature Pulse Rate 97 H Respiratory Rate 16 Blood Pressure 86/62 L 82/62 L Pulse Oximetry 95 Oxygen Delivery Method Room Air 11/13/22 15:40 11/13/22 15:43 11/13/22 15:43 Temperature Pulse Rate 96 H 100 H Respiratory Rate 16 16 Blood Pressure 85/60 L Pulse Oximetry 95 95 Oxygen Delivery Method 11/13/22 15:45 11/13/22 15:45 11/13/22 15:48 Temperature Pulse Rate 96 H Respiratory Rate 20 Blood Pressure 82/59 L 83/61 L Pulse Oximetry 95 Oxygen Delivery Method 11/13/22 15:48 11/13/22 15:50 11/13/22 15:50 Temperature Pulse Rate 98 H 105 H Respiratory Rate 15 15 Blood Pressure 80/54 L Pulse Oximetry 95 96 Oxygen Delivery Method 11/13/22 15:53 11/13/22 15:53 11/13/22 15:55 Temperature Pulse Rate 95 H 105 H Respiratory Rate 17 20 Blood Pressure 91/61 Pulse Oximetry 95 95 Oxygen Delivery Method 11/13/22 15:55 11/13/22 15:58 11/13/22 15:58 Temperature Pulse Rate 105 H Respiratory Rate 17 Blood Pressure 85/58 L 83/58 L Pulse Oximetry 96 Oxygen Delivery Method 11/13/22 15:59 11/13/22 16:00 Temperature Pulse Rate 109 H Respiratory Rate 19 Blood Pressure 84/61 L Pulse Oximetry 96 Oxygen Delivery Method Room Air MDM - Weakness Lab Data 11/17/22 05:45 11/17/22 05:45 Labs: Lab Results 11/13/22 11/13/22 11/13/22 Range/Units 09:45 10:56 10:56 WBC 14.8 H (4.5-11.0) X10^3/uL RBC 5.17 (4.5-5.9) X10^6/uL Hgb 11.6 L (13.5-17.5) g/dL Hct 37.0 L (41-53) % MCV 71.5 L (80-100) fL MCH 22.3 L (26-34) PG MCHC 31.2 (30-36) % RDW 20.8 H (11.6-14.8) % Plt Count 268 (150-400) X10^3/uL Neut % (Auto) 86.3 H (50-75) % Lymph % (Auto) 4.4 L (25-40) % [place] % (Auto) 8.6 (3-14) % Eos % (Auto) 0.2 L (2-4) % Baso % (Auto) 0.5 (0-2) % Neut # (Auto) 14835 H (2670-0025) /uL Lymph # (Auto) 600 L (5252-4384) /uL [place] # (Auto) 1300 H (0-900) /uL Eos # (Auto) 0 (0-450) /uL Baso # (Auto) 100 (0-100) /uL RBC Morphology See below Poikilocytosis 2+ H Anisocytosis 2+ H Spherocytes 1+ H Target Cells 1+ H Ovalocytes 1+ H [place] Cells 1+ H Acanthocytes (Spur) 1+ PT 26.0 H (10.1-12.7) SECONDS INR 2.2 H (0.9-1.3) APTT 36 (26-36) SECONDS Sodium (137-145) mmol/L Potassium (3.4-5.1) mmol/L Chloride (98-107) mmol/L Carbon Dioxide (22-32) mmol/L BUN (9-20) mg/dL Creatinine (0.66-1.25) mg/dL Estimated GFR (>60) mL/min BUN/Creatinine Ratio (6-22) Glucose (80-110) mg/dL Lactate (0.7-2.1) mmol/L Calcium (8.4-10.2) mg/dL Magnesium (1.6-2.3) mg/dL Total Bilirubin (0.2-1.3) mg/dL AST (17-59) IU/L ALT (<50) IU/L Alkaline Phosphatase (38-126) U/L Total Creatine Kinase (55-170) U/L CK-MB (CK-2) CK-MB (CK-2) Rel Index Troponin I (0.01-0.034) ng/mL Total Protein (6.3-8.2) g/dL Albumin (3.5-5.0) g/dL Globulin (1.7-4.1) g/dL Albumin/Globulin Ratio (1.0-2.8) Lipase (23-300) U/L Procalcitonin (<0.5) ng/mL Urine Color Urine Appearance Urine pH (4.5-8.0) Ur Specific [place] (1.000-1.035) Urine Protein (Negative) Urine Glucose (UA) (Negative) g/dL Urine Ketones (NEGATIVE) Urine Occult Blood (Negative) Urine Nitrate (Negative) Urine Bilirubin (NEGATIVE) Urine Urobilinogen (0.2) E.U./dL Ur Leukocyte Esterase (NEGATIVE) Urine RBC (0-5/HPF) Urine WBC (0-5/HPF) Amorphous Sediment Urine Bacteria (None) Urine Yeast (None) Urine Sperm Ur Culture Indicated? Chlamy pneumoniae PCR Not detected (Not Detect) Adenovirus (PCR) Not detected (Not Detect) B. pertussis DNA (PCR) Not detected (Not Detecte) B.parapertussis DNA PCR Not detected (Not Detecte) Coronavirus OC43 (PCR) Not detected (Not Detect) Coronavirus HKU1 (PCR) Not detected (Not Detect) Coronavirus 229E (PCR) Not detected (Not Detect) SARS-CoV-2 (PCR) Not detected (Not Detecte) Coronavirus NL63 (PCR) Not detected (Not Detect) Human Metapneumovir PCR Not detected (Not Detect) Influenza Type A (PCR) Not detected (Not Detect) Influenza Type B (PCR) Not detected (Not Detect) M. pneumoniae (PCR) Not detected (Not Detect) Parainfluenza 1 (PCR) Not detected (Not Detect) Parainfluenza 2 (PCR) Not detected (Not Detect) Parainfluenza 3 (PCR) Not detected (Not Detect) Parainfluenza 4 (PCR) Not detected (Not Detect) RSV (PCR) Not detected (Not Detect) Entero/Rhino (PCR) Not detected (Not Detect) 11/13/22 11/13/22 11/13/22 Range/Units 10:56 10:56 10:56 WBC (4.5-11.0) X10^3/uL RBC (4.5-5.9) X10^6/uL Hgb (13.5-17.5) g/dL Hct (41-53) % MCV (80-100) fL MCH (26-34) PG MCHC (30-36) % RDW (11.6-14.8) % Plt Count (150-400) X10^3/uL Neut % (Auto) (50-75) % Lymph % (Auto) (25-40) % [place] % (Auto) (3-14) % Eos % (Auto) (2-4) % Baso % (Auto) (0-2) % Neut # (Auto) (3880-2307) /uL Lymph # (Auto) (4748-0519) /uL [place] # (Auto) (0-900) /uL Eos # (Auto) (0-450) /uL Baso # (Auto) (0-100) /uL RBC Morphology Poikilocytosis Anisocytosis Spherocytes Target Cells Ovalocytes [place] Cells Acanthocytes (Spur) PT (10.1-12.7) SECONDS INR (0.9-1.3) APTT (26-36) SECONDS Sodium 136 L (137-145) mmol/L Potassium 3.9 (3.4-5.1) mmol/L Chloride 104 (98-107) mmol/L Carbon Dioxide 24 (22-32) mmol/L BUN 32 H (9-20) mg/dL Creatinine 1.30 H (0.66-1.25) mg/dL Estimated GFR 56 L (>60) mL/min BUN/Creatinine Ratio 24.6 H (6-22) Glucose 100 (80-110) mg/dL Lactate 2.6 H (0.7-2.1) mmol/L Calcium 7.9 L (8.4-10.2) mg/dL Magnesium 1.5 L (1.6-2.3) mg/dL Total Bilirubin 1.3 (0.2-1.3) mg/dL AST 25 (17-59) IU/L ALT 16 (<50) IU/L Alkaline Phosphatase 89 (38-126) U/L Total Creatine Kinase 34 L (55-170) U/L CK-MB (CK-2) TNP CK-MB (CK-2) Rel Index TNP Troponin I < 0.012 (0.01-0.034) ng/mL Total Protein 6.1 L (6.3-8.2) g/dL Albumin 3.2 L (3.5-5.0) g/dL Globulin 2.9 (1.7-4.1) g/dL Albumin/Globulin Ratio 1.1 (1.0-2.8) Lipase 49 (23-300) U/L Procalcitonin 0.09 (<0.5) ng/mL Urine Color Urine Appearance Urine pH (4.5-8.0) Ur Specific [place] (1.000-1.035) Urine Protein (Negative) Urine Glucose (UA) (Negative) g/dL Urine Ketones (NEGATIVE) Urine Occult Blood (Negative) Urine Nitrate (Negative) Urine Bilirubin (NEGATIVE) Urine Urobilinogen (0.2) E.U./dL Ur Leukocyte Esterase (NEGATIVE) Urine RBC (0-5/HPF) Urine WBC (0-5/HPF) Amorphous Sediment Urine Bacteria (None) Urine Yeast (None) Urine Sperm Ur Culture Indicated? Chlamy pneumoniae PCR (Not Detect) Adenovirus (PCR) (Not Detect) B. pertussis DNA (PCR) (Not Detecte) B.parapertussis DNA PCR (Not Detecte) Coronavirus OC43 (PCR) (Not Detect) Coronavirus HKU1 (PCR) (Not Detect) Coronavirus 229E (PCR) (Not Detect) SARS-CoV-2 (PCR) (Not Detecte) Coronavirus NL63 (PCR) (Not Detect) Human Metapneumovir PCR (Not Detect) Influenza Type A (PCR) (Not Detect) Influenza Type B (PCR) (Not Detect) M. pneumoniae (PCR) (Not Detect) Parainfluenza 1 (PCR) (Not Detect) Parainfluenza 2 (PCR) (Not Detect) Parainfluenza 3 (PCR) (Not Detect) Parainfluenza 4 (PCR) (Not Detect) RSV (PCR) (Not Detect) Entero/Rhino (PCR) (Not Detect) 11/13/22 11/13/22 Range/Units 13:35 14:40 WBC (4.5-11.0) X10^3/uL RBC (4.5-5.9) X10^6/uL Hgb (13.5-17.5) g/dL Hct (41-53) % MCV (80-100) fL MCH (26-34) PG MCHC (30-36) % RDW (11.6-14.8) % Plt Count (150-400) X10^3/uL Neut % (Auto) (50-75) % Lymph % (Auto) (25-40) % [place] % (Auto) (3-14) % Eos % (Auto) (2-4) % Baso % (Auto) (0-2) % Neut # (Auto) (7108-9881) /uL Lymph # (Auto) (2430-9059) /uL [place] # (Auto) (0-900) /uL Eos # (Auto) (0-450) /uL Baso # (Auto) (0-100) /uL RBC Morphology Poikilocytosis Anisocytosis Spherocytes Target Cells Ovalocytes [place] Cells Acanthocytes (Spur) PT (10.1-12.7) SECONDS INR (0.9-1.3) APTT (26-36) SECONDS Sodium (137-145) mmol/L Potassium (3.4-5.1) mmol/L Chloride (98-107) mmol/L Carbon Dioxide (22-32) mmol/L BUN (9-20) mg/dL Creatinine (0.66-1.25) mg/dL Estimated GFR (>60) mL/min BUN/Creatinine Ratio (6-22) Glucose (80-110) mg/dL Lactate 1.5 (0.7-2.1) mmol/L Calcium (8.4-10.2) mg/dL Magnesium (1.6-2.3) mg/dL Total Bilirubin (0.2-1.3) mg/dL AST (17-59) IU/L ALT (<50) IU/L Alkaline Phosphatase (38-126) U/L Total Creatine Kinase (55-170) U/L CK-MB (CK-2) CK-MB (CK-2) Rel Index Troponin I (0.01-0.034) ng/mL Total Protein (6.3-8.2) g/dL Albumin (3.5-5.0) g/dL Globulin (1.7-4.1) g/dL Albumin/Globulin Ratio (1.0-2.8) Lipase (23-300) U/L Procalcitonin (<0.5) ng/mL Urine Color Yellow Urine Appearance Cloudy Urine pH 5.5 (4.5-8.0) Ur Specific [place] >=1.030 H (1.000-1.035) Urine Protein 1+ H (Negative) Urine Glucose (UA) Negative (Negative) g/dL Urine Ketones Negative (NEGATIVE) Urine Occult Blood 3+ H (Negative) Urine Nitrate Negative (Negative) Urine Bilirubin Negative (NEGATIVE) Urine Urobilinogen 0.2 (0.2) E.U./dL Ur Leukocyte Esterase 1+ H (NEGATIVE) Urine RBC 5-10/hpf H (0-5/HPF) Urine WBC 5-10/hpf H (0-5/HPF) Amorphous Sediment 1+ Urine Bacteria Few (2-10) H (None) Urine Yeast 0-1/hpf (None) Urine Sperm 1-2 Ur Culture Indicated? Specimen cultured Chlamy pneumoniae PCR (Not Detect) Adenovirus (PCR) (Not Detect) B. pertussis DNA (PCR) (Not Detecte) B.parapertussis DNA PCR (Not Detecte) Coronavirus OC43 (PCR) (Not Detect) Coronavirus HKU1 (PCR) (Not Detect) Coronavirus 229E (PCR) (Not Detect) SARS-CoV-2 (PCR) (Not Detecte) Coronavirus NL63 (PCR) (Not Detect) Human Metapneumovir PCR (Not Detect) Influenza Type A (PCR) (Not Detect) Influenza Type B (PCR) (Not Detect) M. pneumoniae (PCR) (Not Detect) Parainfluenza 1 (PCR) (Not Detect) Parainfluenza 2 (PCR) (Not Detect) Parainfluenza 3 (PCR) (Not Detect) Parainfluenza 4 (PCR) (Not Detect) RSV (PCR) (Not Detect) Entero/Rhino (PCR) (Not Detect) MDM Narrative Medical decision making narrative: After history and exam CBC CMP PT PTT EKG troponin BNP magnesium viral panel lactic acid procalcitonin chest x-ray normal saline ordered MDM CC: Weakness fatigue Complicating co-morbidities: CHF COPD UTI anemia Data collected from: Patient Medical records reviewed: Discharge summary October 29, 2022 from this hospital Differential considered: Includes but not limited to dehydration UTI anemia viral syndrome failure to thrive Exam documented above, pertinent findings include: Tachycardia dry mucous membrane Lab Test results independently reviewed as above. Pertinent findings: WBC 14.8 hemoglobin 11.6 hematocrit 37 platelets 268 INR 2.2 sodium 136 BUN 32 creatinine 1.3 GFR 56 lactic acid 2.6 calcium 7.9 magnesium 1.5 Independently reviewed EKG as above AFib with RVR. Rate 109 Imaging studies independently reviewed: Chest x-ray no acute process Consultations: 4:30 p.m.. Spoke with cardiology dr singh, we have reviewed patient's past atrial fibrillation history as well as echocardiogram. At this time may start Levophed for vasopressor. If needed and heart rate increases may try to use amiodarone. No cardioversion at this time. Must treat underlying source of his low blood pressure either dehydration or sepsis. Still awaiting for primary care physician to call back. Dr Anderson 4:38 p.m.. Spoke with primary care dr anderson, will admit icu, he will follow up on the central line request by anesthesia. Treatments: Normal saline, levophed, Rocephin Re-evaluations: 4:30 p.m.. Patient remains hypotensive. But he is alert. Protecting his airway. He does agree for admission. Discussion: Appropriate admission for ICU. Will need Levophed and antibiotics and close monitoring. Diagnosis: Hypotension/atrial fibrillation Critical Care Time Critical Care Time Attestation: Critical Care Time 35 minutes: Critical care time is separate from other billable procedures. This critical care time includes consultation with family and other consulting doctors, review of records, and interpretation of data from labs, EKGs, imaging, etc. Discharge Plan Departure Patient Disposition: Admitted As Inpatient Clinical Impression: Hypotension, Acute kidney injury, Atrial fibrillation Admit Date/Time: 11/13/22 16:53 Admit Provider: Willy Anderson
[2022-11-13] MEDS: SODIUM CHLORIDE 0.9% 500 ML 1000 ML IV ×2 (11:52→15:24)
[2022-11-13 11:54] LABS: Troponin I < 0.012 ng/mL (0.01-0.034)
[2022-11-13] MEDS: ACETAMINOPHEN 325 MG TABLET 975 MG PO (11:56)
[2022-11-13 11:59] LABS: Procalcitonin 0.09 ng/mL (<0.5)
[2022-11-13 12:03] LABS: Anisocytosis 2+; Burr Cells 1+
[2022-11-13 12:04] LABS: Poikilocytosis 2+; Target Cells 1+
[2022-11-13 12:05] LABS: Acanthocytes 1+; Ovalocytes 1+
[2022-11-13 12:06] LABS: Spherocytes 1+
[2022-11-13 12:33] LABS: Adenovirus Not Detected (Not Detect); B. parapertussis Not Detected (Not Detecte); Bordetella pertussis Not Detected (Not Detecte); Chlamydophila pneumoniae Not Detected (Not Detect); Coronavirus 229E Not Detected (Not Detect); Coronavirus HKU1 Not Detected (Not Detect); Coronavirus NL 63 Not Detected (Not Detect); Coronavirus OC43 Not Detected (Not Detect); Human Metapneumovirus Not Detected (Not Detect); Human Rhinovirus/Enterovirus Not Detected (Not Detect); Influenza A Not Detected (Not Detect); Influenza B Not Detected (Not Detect); Mycoplasma pneumoniae Not Detected (Not Detect); Parainfluenza Virus 1 Not Detected (Not Detect); Parainfluenza Virus 2 Not Detected (Not Detect); Parainfluenza Virus 3 Not Detected (Not Detect); Parainfluenza Virus 4 Not Detected (Not Detect); Respiratory Syncytial Virus Not Detected (Not Detect); SARS- CoV-2 Not Detected (Not Detecte)
[2022-11-13 13:04] LABS: Reflexed Lactate in 2 Hours Y
[2022-11-13 13:47] LABS: Appearance Urine UA CLOUDY; Bilirubin Urine UA NEGATIVE (NEGATIVE); Color Urine UA YELLOW; Glucose Urine UA NEGATIVE (Negative); Ketones Urine UA NEGATIVE (NEGATIVE); Leukocyte Esterase Urine UA 1+ (NEGATIVE); Nitrite Urine UA NEGATIVE (Negative); Occult Blood Urine UA 3+ (Negative); Protein Urine UA 1+ (Negative); Specific Gravity Urine UA >=1.030 (1.000-1.035); Urobilinogen Urine UA 0.2 E.U./dL (0.2); pH Urine UA 5.5 (4.5-8.0)
[2022-11-13 14:05] LABS: Amorphous Sediment Urine 1+; Bacteria Urine Few (2-10); RBC Urine 5-10/HPF (0-5/HPF); WBC Urine 5-10/HPF (0-5/HPF)
[2022-11-13 14:06] LABS: Culture Indicated Urine Specimen Cultured
[2022-11-13] MEDS: dilTIAZem 5 MG/ML SDV 10 MG IV (14:43)
--- NOTE | 2022-11-13 15:01 | PC.NURSE ---
Patient alert, awake, and oriented x4/4. Breathing even and unlabored. Repositioned to supine. Pt denies symptoms r/t hypotension.
[2022-11-13 15:02] LABS: Lactate 2HR (Lactic Acid Rflx) 1.5 mmol/L (0.7-2.1)
[2022-11-13] MEDS: cefTRIAXone 2,000 MG in SODIUM CHLORIDE 0.9% 100 ML 200 MG IV (16:43)
[2022-11-13] MEDS: NOREPINEPHRINE BITARTRATE/D5W 4 MG/250 ML PLAST..BAG 30 MG IV (16:43)
--- NOTE | 2022-11-13 17:28 | PC.NURSE ---
Norepinephrine Drip continued during transport, passed on to Luis HAIR at 1720.
--- NOTE | 2022-11-13 18:08 | P.HP_ITS ---
History of Present Illness History of Present Illness Date Patient Seen: 11/13/22 Time Patient Seen: 18:09 Chief complaint: Weakness, Hypotensive Narrative: Pt with PMH sig for TTP, well controlled CHF, afib w/RVR, deconditioning, urinary obstruction, presents to ED via EMS with CC of acute fatigue. Well known to me as PCP and from prior admissions. He was found to be acutely hypotensive in ED and levophed was started after 3Ls and consultation with Dr. Blakely who also recommended considering amiodarone if his HR goes up. He is acutely neutrophilic and leukocytotic and his urine does evidence bacteremia. He was last admitted here two weeks ago for catheter associated UTI/ARANZA - this catheter was initially placed in ED 2 months ago for obstruction then replaced last visit. He last saw urology 2 weeks ago on d/c from inpatient at which time he had failed voiding trial and had catheter replaced. It looks grossly ok now but the urine is infected with bacteremia per lab. He is essentially bed bound but I do not have a specific diagnosis to explain this - he has been declining to work with PT for some time now. He responded to levophed at 8 in the ED and was able to come down to 4 in the unit - he is alert and hungry with systolic in the 100s currently. Notes his has been sick and PO intake has been less than usual. Continues to appear cachectic. Reports last BM was 2 days ago but this has not been a regular issue for him. Increasing contractures noted. [facility] Medical History Arthritis Atrial fibrillation Atrial flutter Barretts esophagus CHF (congestive heart failure) Chronic atrial fibrillation Chronic cough Chronic heart failure with preserved ejection fraction Degenerative arthritis Eosinophilia GERD (gastroesophageal reflux disease) GI bleed History of cardioversion Iron deficiency anemia Mixed hyperlipidemia Physical deconditioning Pulmonary fibrosis Spinal stenosis of lumbar region with neurogenic claudication Thrombocytopenia Thrombotic thrombocytopenic purpura (TTP) Urinary retention Surgical History History of coronary angioplasty with insertion of stent Hx of cholecystectomy Hx of tonsillectomy Family History Mother Breast cancer Social History marital status: household members: spouse Smoking Status: Never smoker alcohol intake: current Meds Home Medications and Allergies Home Medications Medication Instructions Recorded Confirmed Type atorvastatin 40 mg tablet 40 mg PO DAILY 12/02/20 11/13/22 History metoprolol succinate 25 mg 12.5 mg PO BID 12/28/21 11/13/22 History tablet,extended release 24 hr pantoprazole 40 mg tablet,delayed 40 mg PO 0700,2100 #180 tabs 01/02/22 11/13/22 Rx release potassium chloride 20 mEq 40 meq PO BID #180 tabs 02/21/22 11/13/22 Rx tablet,extended release(part/cryst) folic acid 1 mg tablet 1 mg PO DAILY 04/19/22 11/13/22 History apixaban 2.5 mg tablet 2.5 mg PO BID 10/29/22 11/13/22 History tamsulosin 0.4 mg capsule (Flomax) 0.4 mg PO DAILY 30 days #7 caps 10/29/22 11/13/22 Rx Allergies Allergy/AdvReac Type Severity Reaction Status Date / Time No Known Drug Allergies Allergy Verified 10/29/22 14:29 Review of Systems Review of Systems Narrative: all systems reviewed and negative except as otherwise documented in HPI Exam Vital Signs (past 8 hours): - 11/13/22 10:29 11/13/22 11:09 11/13/22 11:10 Temperature 98.4 F Pulse Rate 120 H 119 H 116 H Respiratory Rate 17 27 H 25 H Blood Pressure 94/57 L Pulse Oximetry 94 97 97 Oxygen Delivery Method Room Air Room Air 11/13/22 11:10 11/13/22 11:15 11/13/22 11:20 Temperature Pulse Rate 125 H Respiratory Rate 25 H Blood Pressure 94/53 L 99/60 Pulse Oximetry 96 Oxygen Delivery Method 11/13/22 11:20 11/13/22 11:30 11/13/22 11:30 Temperature Pulse Rate 121 H 125 H Respiratory Rate 33 H 29 H Blood Pressure 84/58 L Pulse Oximetry 96 97 Oxygen Delivery Method 11/13/22 11:31 11/13/22 11:32 11/13/22 11:32 Temperature Pulse Rate 121 H 123 H Respiratory Rate 22 27 H Blood Pressure 84/63 L Pulse Oximetry 97 97 Oxygen Delivery Method Room Air 11/13/22 11:40 11/13/22 11:40 11/13/22 11:45 Temperature Pulse Rate 118 H 126 H Respiratory Rate 38 H 24 Blood Pressure 83/64 L Pulse Oximetry 96 97 Oxygen Delivery Method 11/13/22 11:48 11/13/22 11:48 11/13/22 11:50 Temperature Pulse Rate 135 H Respiratory Rate 33 H Blood Pressure 91/72 89/54 L Pulse Oximetry 96 Oxygen Delivery Method 11/13/22 11:50 11/13/22 12:00 11/13/22 12:00 Temperature Pulse Rate 123 H 123 H Respiratory Rate 26 H 24 Blood Pressure 83/55 L Pulse Oximetry 96 96 Oxygen Delivery Method 11/13/22 12:10 11/13/22 12:10 11/13/22 12:15 Temperature Pulse Rate 123 H 128 H Respiratory Rate 17 21 Blood Pressure 91/65 Pulse Oximetry 96 96 Oxygen Delivery Method 11/13/22 12:20 11/13/22 12:20 11/13/22 12:30 Temperature Pulse Rate 126 H Respiratory Rate 19 Blood Pressure 99/74 88/69 L Pulse Oximetry 95 Oxygen Delivery Method 11/13/22 12:30 11/13/22 12:40 11/13/22 12:40 Temperature Pulse Rate 124 H 128 H Respiratory Rate 19 19 Blood Pressure 92/70 Pulse Oximetry 96 97 Oxygen Delivery Method Room Air 11/13/22 12:50 11/13/22 12:50 11/13/22 12:55 Temperature Pulse Rate 133 H 131 H Respiratory Rate 17 19 Blood Pressure 83/62 L Pulse Oximetry 97 97 Oxygen Delivery Method 11/13/22 12:55 11/13/22 13:00 11/13/22 13:00 Temperature Pulse Rate 140 H Respiratory Rate 19 Blood Pressure 94/65 99/71 Pulse Oximetry 98 Oxygen Delivery Method 11/13/22 13:10 11/13/22 13:10 11/13/22 13:20 Temperature Pulse Rate 126 H Respiratory Rate 19 Blood Pressure 84/55 L 83/56 L Pulse Oximetry 98 Oxygen Delivery Method 11/13/22 13:20 11/13/22 13:30 11/13/22 13:30 Temperature Pulse Rate 131 H 138 H Respiratory Rate 16 14 Blood Pressure 72/54 L Pulse Oximetry 98 98 Oxygen Delivery Method Room Air Room Air 11/13/22 13:40 11/13/22 13:40 11/13/22 13:50 Temperature Pulse Rate 123 H Respiratory Rate 12 Blood Pressure 88/60 L 90/57 L Pulse Oximetry 97 Oxygen Delivery Method Room Air 11/13/22 13:50 11/13/22 13:59 11/13/22 14:00 Temperature Pulse Rate 125 H 121 H Respiratory Rate 18 14 Blood Pressure 91/67 Pulse Oximetry 97 97 Oxygen Delivery Method Room Air 11/13/22 14:00 11/13/22 14:10 11/13/22 14:10 Temperature Pulse Rate 119 H 120 H Respiratory Rate 15 19 Blood Pressure 89/62 L Pulse Oximetry 97 98 Oxygen Delivery Method 11/13/22 14:20 11/13/22 14:20 11/13/22 14:30 Temperature Pulse Rate 114 H Respiratory Rate 17 Blood Pressure 87/60 L 91/55 L Pulse Oximetry Oxygen Delivery Method 11/13/22 14:30 11/13/22 14:43 11/13/22 14:40 Temperature Pulse Rate 123 H 118 H Respiratory Rate 20 Blood Pressure 89/52 L 82/54 L Pulse Oximetry 92 Oxygen Delivery Method Room Air 11/13/22 14:40 11/13/22 14:43 11/13/22 14:43 Temperature Pulse Rate 125 H 121 H Respiratory Rate 20 16 Blood Pressure 89/52 L Pulse Oximetry Oxygen Delivery Method 11/13/22 14:50 11/13/22 14:50 11/13/22 14:53 Temperature Pulse Rate 115 H 96 H Respiratory Rate 17 14 Blood Pressure 74/47 L Pulse Oximetry 98 94 Oxygen Delivery Method 11/13/22 14:53 11/13/22 14:55 11/13/22 14:55 Temperature Pulse Rate 97 H Respiratory Rate 13 Blood Pressure 70/49 L 70/47 L Pulse Oximetry 93 Oxygen Delivery Method 11/13/22 14:57 11/13/22 14:58 11/13/22 14:58 Temperature Pulse Rate 96 H 93 H Respiratory Rate 16 16 Blood Pressure 74/50 L Pulse Oximetry 92 94 Oxygen Delivery Method Room Air 11/13/22 15:00 11/13/22 15:00 11/13/22 15:03 Temperature Pulse Rate 96 H 95 H Respiratory Rate 16 23 Blood Pressure 72/52 L Pulse Oximetry 94 92 Oxygen Delivery Method 11/13/22 15:03 11/13/22 15:05 11/13/22 15:05 Temperature Pulse Rate 98 H Respiratory Rate 17 Blood Pressure 74/54 L 80/52 L Pulse Oximetry 97 Oxygen Delivery Method 11/13/22 15:08 11/13/22 15:08 11/13/22 15:10 Temperature Pulse Rate 96 H Respiratory Rate 16 Blood Pressure 81/56 L 82/54 L Pulse Oximetry 96 Oxygen Delivery Method 11/13/22 15:10 11/13/22 15:13 11/13/22 15:13 Temperature Pulse Rate 96 H 96 H Respiratory Rate 21 18 Blood Pressure 76/51 L Pulse Oximetry 96 96 Oxygen Delivery Method 11/13/22 15:15 11/13/22 15:15 11/13/22 15:18 Temperature Pulse Rate 95 H Respiratory Rate 18 Blood Pressure 77/54 L 79/54 L Pulse Oximetry 95 Oxygen Delivery Method 11/13/22 15:18 11/13/22 15:20 11/13/22 15:20 Temperature Pulse Rate 96 H 103 H Respiratory Rate 17 18 Blood Pressure 82/57 L Pulse Oximetry 95 95 Oxygen Delivery Method 11/13/22 15:23 11/13/22 15:23 11/13/22 15:25 Temperature Pulse Rate 102 H Respiratory Rate 18 Blood Pressure 79/62 L 80/53 L Pulse Oximetry 94 Oxygen Delivery Method 11/13/22 15:25 11/13/22 15:28 11/13/22 15:28 Temperature Pulse Rate 102 H 92 H Respiratory Rate 18 17 Blood Pressure 82/58 L Pulse Oximetry 94 94 Oxygen Delivery Method Room Air 11/13/22 15:30 11/13/22 15:30 11/13/22 15:33 Temperature Pulse Rate 105 H Respiratory Rate 21 Blood Pressure 72/56 L 82/56 L Pulse Oximetry 93 Oxygen Delivery Method 11/13/22 15:33 11/13/22 15:35 11/13/22 15:35 Temperature Pulse Rate 107 H 105 H Respiratory Rate 19 18 Blood Pressure 86/63 L Pulse Oximetry 96 95 Oxygen Delivery Method 11/13/22 15:38 11/13/22 15:38 11/13/22 15:40 Temperature Pulse Rate 97 H Respiratory Rate 16 Blood Pressure 86/62 L 82/62 L Pulse Oximetry 95 Oxygen Delivery Method Room Air 11/13/22 15:40 11/13/22 15:43 11/13/22 15:43 Temperature Pulse Rate 96 H 100 H Respiratory Rate 16 16 Blood Pressure 85/60 L Pulse Oximetry 95 95 Oxygen Delivery Method 11/13/22 15:45 11/13/22 15:45 11/13/22 15:48 Temperature Pulse Rate 96 H Respiratory Rate 20 Blood Pressure 82/59 L 83/61 L Pulse Oximetry 95 Oxygen Delivery Method 11/13/22 15:48 11/13/22 15:50 11/13/22 15:50 Temperature Pulse Rate 98 H 105 H Respiratory Rate 15 15 Blood Pressure 80/54 L Pulse Oximetry 95 96 Oxygen Delivery Method 11/13/22 15:53 11/13/22 15:53 11/13/22 15:55 Temperature Pulse Rate 95 H 105 H Respiratory Rate 17 20 Blood Pressure 91/61 Pulse Oximetry 95 95 Oxygen Delivery Method 11/13/22 15:55 11/13/22 15:58 11/13/22 15:58 Temperature Pulse Rate 105 H Respiratory Rate 17 Blood Pressure 85/58 L 83/58 L Pulse Oximetry 96 Oxygen Delivery Method 11/13/22 15:59 11/13/22 16:00 11/13/22 16:00 Temperature Pulse Rate 109 H 108 H Respiratory Rate 19 18 Blood Pressure 84/61 L Pulse Oximetry 96 96 Oxygen Delivery Method Room Air 11/13/22 16:03 11/13/22 16:03 11/13/22 16:07 Temperature Pulse Rate 109 H 104 H Respiratory Rate 17 24 Blood Pressure 83/60 L Pulse Oximetry 96 96 Oxygen Delivery Method 11/13/22 16:07 11/13/22 16:08 11/13/22 16:08 Temperature Pulse Rate 114 H Respiratory Rate 20 Blood Pressure 90/57 L 90/57 L Pulse Oximetry 96 Oxygen Delivery Method 11/13/22 16:10 11/13/22 16:10 11/13/22 16:10 Temperature Pulse Rate 112 H Respiratory Rate 19 Blood Pressure 84/53 L 84/53 L Pulse Oximetry 95 Oxygen Delivery Method 11/13/22 16:12 11/13/22 16:12 11/13/22 16:13 Temperature Pulse Rate 124 H Respiratory Rate 22 Blood Pressure 77/53 L 77/53 L Pulse Oximetry 96 Oxygen Delivery Method 11/13/22 16:13 11/13/22 16:15 11/13/22 16:15 Temperature Pulse Rate 113 H Respiratory Rate 20 Blood Pressure 87/57 L 87/57 L Pulse Oximetry 97 Oxygen Delivery Method 11/13/22 16:15 11/13/22 16:17 11/13/22 16:17 Temperature Pulse Rate 110 H 111 H Respiratory Rate 16 19 Blood Pressure 86/52 L Pulse Oximetry 97 96 Oxygen Delivery Method 11/13/22 16:18 11/13/22 16:18 11/13/22 16:20 Temperature Pulse Rate 111 H 106 H Respiratory Rate 19 Blood Pressure 86/52 L Pulse Oximetry 96 93 Oxygen Delivery Method 11/13/22 16:21 11/13/22 16:21 11/13/22 16:23 Temperature Pulse Rate 112 H 113 H Respiratory Rate 17 18 Blood Pressure 83/59 L Pulse Oximetry 95 96 Oxygen Delivery Method 11/13/22 16:23 11/13/22 16:25 11/13/22 16:30 Temperature Pulse Rate 113 H 120 H Respiratory Rate 20 19 Blood Pressure 111/59 L Pulse Oximetry 96 97 Oxygen Delivery Method Nasal Cannula 11/13/22 16:32 11/13/22 16:32 11/13/22 16:35 Temperature Pulse Rate 119 H 109 H Respiratory Rate 13 14 Blood Pressure 88/57 L Pulse Oximetry 97 95 Oxygen Delivery Method 11/13/22 16:35 11/13/22 16:40 11/13/22 16:40 Temperature Pulse Rate 106 H Respiratory Rate 17 Blood Pressure 88/58 L 86/59 L Pulse Oximetry 93 Oxygen Delivery Method 11/13/22 16:45 11/13/22 16:45 11/13/22 16:50 Temperature Pulse Rate 106 H Respiratory Rate 10 L Blood Pressure 89/60 L 91/57 L Pulse Oximetry 96 Oxygen Delivery Method 11/13/22 16:50 11/13/22 16:55 11/13/22 16:55 Temperature Pulse Rate 103 H 108 H Respiratory Rate 17 18 Blood Pressure 114/86 Pulse Oximetry 94 93 Oxygen Delivery Method Room Air Room Air 11/13/22 17:00 11/13/22 17:00 11/13/22 17:05 Temperature Pulse Rate 104 H Respiratory Rate 16 Blood Pressure 111/77 116/73 Pulse Oximetry 93 Oxygen Delivery Method Room Air 11/13/22 17:05 11/13/22 17:21 11/13/22 17:21 Temperature Pulse Rate 106 H 110 H Respiratory Rate 18 23 Blood Pressure 116/64 Pulse Oximetry 94 Oxygen Delivery Method 11/13/22 16:57 Temperature Pulse Rate Respiratory Rate Blood Pressure Pulse Oximetry Oxygen Delivery Method Room Air Oxygen Delivery Method Room Air Narrative Exam Narrative: alert elder laying in bed eating yogurt Const General: cooperative and comfortable Nutritional Appearance: cachectic HENMT Head: normocephalic and atraumatic Eyes General: appearance normal, both eyes and all related structures Resp Other: moving air well speaing easily on RA, clear to auscultation bilaterally no crackles after 3L Cardio Other: midly elevated rate, irregularly irregular rhythm, S1/S2 no pedal edema GI Other: active bowel sounds 2/2 yogurt Other: smith in place draining dark yellow urine Back/Spine/Pelvis Back: normal to inspection Neuro General: patient alert, patient awake and patient oriented x3 Extrem Other: moderate contractures of both legs, unable to extend knees past 100 degrees Psych Appearance: grossly normal Mental Status: mental status grossly normal Objective Labs 11/13/22 10:56 11/13/22 10:56 Labs: Laboratory Results - last 24 hr 11/13/22 11/13/22 11/13/22 09:45 10:56 10:56 WBC 14.8 H RBC 5.17 Hgb 11.6 L Hct 37.0 L MCV 71.5 L MCH 22.3 L MCHC 31.2 RDW 20.8 H Plt Count 268 Neut % (Auto) 86.3 H Lymph % (Auto) 4.4 L [place] % (Auto) 8.6 Eos % (Auto) 0.2 L Baso % (Auto) 0.5 Neut # (Auto) 72385 H Lymph # (Auto) 600 L [place] # (Auto) 1300 H Eos # (Auto) 0 Baso # (Auto) 100 RBC Morphology See below Poikilocytosis 2+ H Anisocytosis 2+ H Spherocytes 1+ H Target Cells 1+ H Ovalocytes 1+ H Connor Cells 1+ H Acanthocytes (Spur) 1+ PT 26.0 H INR 2.2 H APTT 36 Sodium Potassium Chloride Carbon Dioxide BUN Creatinine Estimated GFR BUN/Creatinine Ratio Glucose Lactate Calcium Magnesium Total Bilirubin AST ALT Alkaline Phosphatase Total Creatine Kinase CK-MB (CK-2) CK-MB (CK-2) Rel Index Troponin I Total Protein Albumin Globulin Albumin/Globulin Ratio Lipase Procalcitonin Urine Color Urine Appearance Urine pH Ur Specific [place]ple[place] Urine Protein Urine Glucose (UA) Urine Ketones Urine Occult Blood Urine Nitrate Urine Bilirubin Urine Urobilinogen Ur Leukocyte Esterase Urine RBC Urine WBC Amorphous Sediment Urine Bacteria Urine Yeast Urine Sperm Ur Culture Indicated? Chlamy pneumoniae PCR Not detected Adenovirus (PCR) Not detected B. pertussis DNA (PCR) Not detected B.parapertussis DNA PCR Not detected Coronavirus OC43 (PCR) Not detected Coronavirus HKU1 (PCR) Not detected Coronavirus 229E (PCR) Not detected SARS-CoV-2 (PCR) Not detected Coronavirus NL63 (PCR) Not detected Human Metapneumovir PCR Not detected Influenza Type A (PCR) Not detected Influenza Type B (PCR) Not detected M. pneumoniae (PCR) Not detected Parainfluenza 1 (PCR) Not detected Parainfluenza 2 (PCR) Not detected Parainfluenza 3 (PCR) Not detected Parainfluenza 4 (PCR) Not detected RSV (PCR) Not detected Entero/Rhino (PCR) Not detected 11/13/22 11/13/22 11/13/22 10:56 10:56 10:56 WBC RBC Hgb Hct MCV MCH MCHC RDW Plt Count Neut % (Auto) Lymph % (Auto) [place] % (Auto) Eos % (Auto) Baso % (Auto) Neut # (Auto) Lymph # (Auto) [place] # (Auto) Eos # (Auto) Baso # (Auto) RBC Morphology Poikilocytosis Anisocytosis Spherocytes Target Cells Ovalocytes Connor Cells Acanthocytes (Spur) PT INR APTT Sodium 136 L Potassium 3.9 Chloride 104 Carbon Dioxide 24 BUN 32 H Creatinine 1.30 H Estimated GFR 56 L BUN/Creatinine Ratio 24.6 H Glucose 100 Lactate 2.6 H Calcium 7.9 L Magnesium 1.5 L Total Bilirubin 1.3 AST 25 ALT 16 Alkaline Phosphatase 89 Total Creatine Kinase 34 L CK-MB (CK-2) TNP CK-MB (CK-2) Rel Index TNP Troponin I < 0.012 Total Protein 6.1 L Albumin 3.2 L Globulin 2.9 Albumin/Globulin Ratio 1.1 Lipase 49 Procalcitonin 0.09 Urine Color Urine Appearance Urine pH Ur Specific [place]ple[place] Urine Protein Urine Glucose (UA) Urine Ketones Urine Occult Blood Urine Nitrate Urine Bilirubin Urine Urobilinogen Ur Leukocyte Esterase Urine RBC Urine WBC Amorphous Sediment Urine Bacteria Urine Yeast Urine Sperm Ur Culture Indicated? Chlamy pneumoniae PCR Adenovirus (PCR) B. pertussis DNA (PCR) B.parapertussis DNA PCR Coronavirus OC43 (PCR) Coronavirus HKU1 (PCR) Coronavirus 229E (PCR) SARS-CoV-2 (PCR) Coronavirus NL63 (PCR) Human Metapneumovir PCR Influenza Type A (PCR) Influenza Type B (PCR) M. pneumoniae (PCR) Parainfluenza 1 (PCR) Parainfluenza 2 (PCR) Parainfluenza 3 (PCR) Parainfluenza 4 (PCR) RSV (PCR) Entero/Rhino (PCR) 11/13/22 11/13/22 13:35 14:40 WBC RBC Hgb Hct MCV MCH MCHC RDW Plt Count Neut % (Auto) Lymph % (Auto) [place] % (Auto) Eos % (Auto) Baso % (Auto) Neut # (Auto) Lymph # (Auto) [place] # (Auto) Eos # (Auto) Baso # (Auto) RBC Morphology Poikilocytosis Anisocytosis Spherocytes Target Cells Ovalocytes [place] Cells Acanthocytes (Spur) PT INR APTT Sodium Potassium Chloride Carbon Dioxide BUN Creatinine Estimated GFR BUN/Creatinine Ratio Glucose Lactate 1.5 Calcium Magnesium Total Bilirubin AST ALT Alkaline Phosphatase Total Creatine Kinase CK-MB (CK-2) CK-MB (CK-2) Rel Index Troponin I Total Protein Albumin Globulin Albumin/Globulin Ratio Lipase Procalcitonin Urine Color Yellow Urine Appearance Cloudy Urine pH 5.5 Ur Specific [place] >=1.030 H Urine Protein 1+ H Urine Glucose (UA) Negative Urine Ketones Negative Urine Occult Blood 3+ H Urine Nitrate Negative Urine Bilirubin Negative Urine Urobilinogen 0.2 Ur Leukocyte Esterase 1+ H Urine RBC 5-10/hpf H Urine WBC 5-10/hpf H Amorphous Sediment 1+ Urine Bacteria Few (2-10) H Urine Yeast 0-1/hpf Urine Sperm 1-2 Ur Culture Indicated? Specimen cultured Chlamy pneumoniae PCR Adenovirus (PCR) B. pertussis DNA (PCR) B.parapertussis DNA PCR Coronavirus OC43 (PCR) Coronavirus HKU1 (PCR) Coronavirus 229E (PCR) SARS-CoV-2 (PCR) Coronavirus NL63 (PCR) Human Metapneumovir PCR Influenza Type A (PCR) Influenza Type B (PCR) M. pneumoniae (PCR) Parainfluenza 1 (PCR) Parainfluenza 2 (PCR) Parainfluenza 3 (PCR) Parainfluenza 4 (PCR) RSV (PCR) Entero/Rhino (PCR) Assessment & Plan Assessment & Plan narrative: #hypotensive shock - sepsis #acute hemorrhagic cystitis in setting of indwelling catheter, acute kidney injury, present on admission Pt is responding well to fluid boluses and levophed. Will continue levo with one more bag of NS then continue on continuous IVF #leukocytosis #neuotrophilic predominance #bacteremia source does appear to be urinary and he has responded well to rocephin previously - cultures pending - continue rocephin iv q24 for now #microcytic anemia present on admission suspect anemia of chronic disease mixed with iron deficiency, continue supplementation and nutrition #severe protein calorie malnutrition #deconditioning encourage constant nutrition with ensure supplements encourage working with PT / mobilizing to chair - emphasize risk of worsening contractions #Atrial fibrillation rate controlled continue home meds hold amiodarone in reserve per Dr. Blakely #hx of TTP stable platelets in 200s.? No change in treatment at this time. #GERD continue home PPI #History of chronic heart failure did ok with ivf, no crackles no pedal edema #hx of pulmonary fibrosis stable, not needing O2 PCP: Miriam diet: general MDM: Tory dvt ppx: home eliquis gi ppx: PPI Dispo: admitted to ICU on iv abx and pressors very fragile I estimate at least three days. As far as dc planning, he has not been seen in my office since his last discharge from this facility 2 weeks ago despite attempts to schedule. It has been difficult to arrange any placement for this gentleman in the past however I have increasing reservations about sending him home without close follow up.
[2022-11-13] MEDS: LACTATED RINGERS 1,000 ML 84 ML IV (18:13)
[2022-11-13 19:34] LABS: MRSA (Nasal) PCR Not Detected (Not Detect)
[2022-11-13] MEDS: ACETAMINOPHEN 325 MG TABLET 650 MG PO (20:08)
[2022-11-13] MEDS: POTASSIUM CHLORIDE 20 MEQ TAB 40 MEQ PO (20:08)
[2022-11-13] MEDS: APIXABAN 5 MG TABLET 2.5 MG PO (20:08)
[2022-11-13] MEDS: PANTOPRAZOLE DR 40 MG TABLET PO (20:08)
[2022-11-14] VITALS (106 sets, daily range): BP systolic 89–128; BP diastolic 60–91; PULSE 98–165; RESP 9–29; TEMP 36.6–37.2; O2SAT 69–100
[2022-11-14] MEDS: PIPERACILLIN/TAZO 4.5 GM in SODIUM CHLORIDE 0.9% 100 ML IV ×4 (01:02→21:15)
[2022-11-14] MEDS: ACETAMINOPHEN 325 MG TABLET 650 MG PO (02:33)
[2022-11-14 05:26] LABS: Add Manual Diff / Slide Review NO; Basophils Absolute Auto 0 /uL (0-100); Basophils Percent Auto 0.3 % (0-2); Eosinophils Absolute Auto 0 /uL (0-450); Eosinophils Percent Auto 0.2 % (2-4); Hematocrit 31.9 % (41-53); Lymphocytes Absolute Auto 1000 /uL (1100-4500); Lymphocytes Percent Auto 7.7 % (25-40); Mean Corpuscular HGB Conc 31.4 % (30-36); Mean Corpuscular Hemoglobin 22.4 PG (26-34); Mean Corpuscular Volume 71.3 fL (80-100); Monocytes Absolute Auto 1600 /uL (0-900); Monocytes Percent Auto 12.6 % (3-14); Neutrophils Absolute Auto 10400 /uL (1500-7000); Neutrophils Percent Auto 79.2 % (50-75); Platelet Count 223 X10^3/uL (150-400); Red Blood Cell Count 4.47 X10^6/uL (4.5-5.9); Red Cell Distribution Width 20.6 % (11.6-14.8); White Blood Cell Count 13.1 X10^3/uL (4.5-11.0)
[2022-11-14 05:30] LABS: Alanine Aminotransferase 69 IU/L (<50); Albumin 2.5 g/dL (3.5-5.0); Alkaline Phosphatase 148 U/L (38-126); Aspartate Aminotransferase 111 IU/L (17-59); BUN Creatinine Ratio 26.5 (6-22); Bilirubin Total 0.9 mg/dL (0.2-1.3); Blood Urea Nitrogen 27 mg/dL (9-20); Calcium 7.1 mg/dL (8.4-10.2); Carbon Dioxide 20 mmol/L (22-32); Chloride 110 mmol/L (98-107); Estimated Glomerular Filt Rate > 60 mL/min (>60); Globulin 2.6 g/dL (1.7-4.1); Glucose 99 mg/dL (80-110); HEMOLYSIS < 15 (0-50); Potassium 3.9 mmol/L (3.4-5.1); Sodium 138 mmol/L (137-145); Total Protein 5.1 g/dL (6.3-8.2)
[2022-11-14] MEDS: LACTATED RINGERS 1,000 ML 84 ML IV ×2 (06:06→22:20)
[2022-11-14] MEDS: PANTOPRAZOLE DR 40 MG TABLET PO ×2 (06:06→20:02)
[2022-11-14 07:23] LABS: Hypochromasia 1+
[2022-11-14 07:24] LABS: Anisocytosis 2+
[2022-11-14 07:25] LABS: Burr Cells 2+; Ovalocytes 1+
[2022-11-14 07:30] LABS: Acanthocytes 1+
[2022-11-14] MEDS: FOLIC ACID 1 MG TABLET PO (08:13)
[2022-11-14] MEDS: ATORVASTATIN 20 MG TABLET 40 MG PO (08:13)
[2022-11-14] MEDS: APIXABAN 5 MG TABLET 2.5 MG PO ×2 (08:13→20:03)
[2022-11-14] MEDS: TAMSULOSIN 0.4 MG CAPSULE PO (08:13)
[2022-11-14] MEDS: POTASSIUM CHLORIDE 20 MEQ TAB 40 MEQ PO (08:13)
--- NOTE | 2022-11-14 09:43 | P.PN_ITS ---
Subjective Subjective Date Patient Seen: 11/14/22 Time Patient Seen: 09:43 Interval history: Patient's case reviewed with Dr. Pineda briefly. (appreciate his coming in to admit patient in my absence last evening) Patient with presumably recurrent urosepsis requiring significant volume resuscitation as well as Levophed for blood pressure support. Somewhat tachy cardic with his chronic atrial fibrillation likely least in part secondary to the Levophed. Lab work this morning shows persistence of his leukocytosis, normalization of his renal function, and probably normalization of his hemoglobin hematocrit (I think he was somewhat hemoconcentrated driving up both hemoglobin and hematocrit on initial labs) He was initially given ceftriaxone in the ER but I have changed that to Zosyn as most recent urinary culture grew a Pseudomonas species that was resistant to ceftriaxone Patient has now been off Levophed since about 07:00 this morning. Blood pressur e stable to actually somewhat improved. Patient is awake alert able to relate a good story to me. Denies any GI symptoms whatsoever. Exam Vital Signs (past 8 hours): - 11/14/22 02:00 11/14/22 02:00 11/14/22 02:03 Temperature Pulse Rate 110 H 110 H Respiratory Rate 17 23 Blood Pressure 106/72 Pulse Oximetry 98 99 11/14/22 02:30 11/14/22 02:30 11/14/22 03:00 Temperature Pulse Rate 109 H 106 H Respiratory Rate 23 18 Blood Pressure 104/71 Pulse Oximetry 100 98 11/14/22 03:00 11/14/22 03:01 11/14/22 03:30 Temperature Pulse Rate 113 H 98 H Respiratory Rate 17 16 Blood Pressure 94/76 Pulse Oximetry 98 99 11/14/22 03:30 11/14/22 04:00 11/14/22 04:00 Temperature 98.3 F Pulse Rate 107 H Respiratory Rate 19 Blood Pressure 99/76 106/78 Pulse Oximetry 99 11/14/22 04:30 11/14/22 04:30 11/14/22 05:00 Temperature Pulse Rate 109 H Respiratory Rate 15 Blood Pressure 109/73 111/73 Pulse Oximetry 98 11/14/22 05:00 11/14/22 05:17 11/14/22 05:30 Temperature Pulse Rate 107 H 109 H 117 H Respiratory Rate 15 15 11 L Blood Pressure Pulse Oximetry 100 99 98 11/14/22 05:30 04/23/23 06:00 11/14/22 06:00 Temperature Pulse Rate 124 H Respiratory Rate 23 Blood Pressure 110/79 104/77 Pulse Oximetry 100 11/14/22 06:06 11/14/22 06:10 11/14/22 06:20 Temperature Pulse Rate 120 H 122 H 118 H Respiratory Rate 19 20 16 Blood Pressure Pulse Oximetry 99 99 99 11/14/22 06:30 11/14/22 06:30 11/14/22 06:40 Temperature Pulse Rate 118 H 117 H Respiratory Rate 16 18 Blood Pressure 112/77 Pulse Oximetry 100 99 11/14/22 06:50 11/14/22 07:00 11/14/22 07:00 Temperature Pulse Rate 115 H 112 H Respiratory Rate 18 20 Blood Pressure 120/84 Pulse Oximetry 100 98 11/14/22 07:10 11/14/22 07:20 11/14/22 07:30 Temperature Pulse Rate 128 H 111 H Respiratory Rate 18 19 Blood Pressure 89/70 L Pulse Oximetry 97 100 11/14/22 07:30 11/14/22 07:40 11/14/22 07:50 Temperature 98 F Pulse Rate 116 H 109 H 116 H Respiratory Rate 17 18 18 Blood Pressure Pulse Oximetry 99 100 100 11/14/22 08:00 11/14/22 08:00 11/14/22 08:10 Temperature Pulse Rate 116 H 110 H Respiratory Rate 17 18 Blood Pressure 104/71 Pulse Oximetry 100 100 11/14/22 08:20 11/14/22 08:30 11/14/22 08:30 Temperature Pulse Rate 126 H 123 H Respiratory Rate 20 20 Blood Pressure 113/68 Pulse Oximetry 86 L 69 L 11/14/22 08:40 11/14/22 08:50 11/14/22 09:00 Temperature Pulse Rate 121 H 128 H Respiratory Rate 21 28 H Blood Pressure 101/65 Pulse Oximetry 85 L 11/14/22 09:00 Temperature Pulse Rate 124 H Respiratory Rate 19 Blood Pressure Pulse Oximetry Oxygen Delivery Method Room Air Narrative Exam Narrative: Elderly male lying in a bed in the ICU in no obvious distress kind of curled up in a semi- position HEENT unremarkable Lungs-good breath sounds no wheezes no crackles Heart-irregularly regular minimally tachycardic Abdomen-positive bowel tones soft nontender nondistended no rebound or guarding whatsoever Extremities-no edema Objective Labs 11/14/22 04:15 11/14/22 04:15 Labs: Laboratory Results - last 24 hr 11/13/22 11/13/22 11/13/22 09:45 10:56 10:56 WBC 14.8 H RBC 5.17 Hgb 11.6 L Hct 37.0 L MCV 71.5 L MCH 22.3 L MCHC 31.2 RDW 20.8 H Plt Count 268 Neut % (Auto) 86.3 H Lymph % (Auto) 4.4 L [place] % (Auto) 8.6 Eos % (Auto) 0.2 L Baso % (Auto) 0.5 Neut # (Auto) 88778 H Lymph # (Auto) 600 L [place] # (Auto) 1300 H Eos # (Auto) 0 Baso # (Auto) 100 RBC Morphology See below Hypochromasia Poikilocytosis 2+ H Anisocytosis 2+ H Spherocytes 1+ H Target Cells 1+ H Ovalocytes 1+ H [place] Cells 1+ H Acanthocytes (Spur) 1+ PT 26.0 H INR 2.2 H APTT 36 Sodium Potassium Chloride Carbon Dioxide BUN Creatinine Estimated GFR BUN/Creatinine Ratio Glucose Lactate Calcium Magnesium Total Bilirubin AST ALT Alkaline Phosphatase Total Creatine Kinase CK-MB (CK-2) CK-MB (CK-2) Rel Index Troponin I Total Protein Albumin Globulin Albumin/Globulin Ratio Lipase Procalcitonin Urine Color Urine Appearance Urine pH Ur Specific [place] Urine Protein Urine Glucose (UA) Urine Ketones Urine Occult Blood Urine Nitrate Urine Bilirubin Urine Urobilinogen Ur Leukocyte Esterase Urine RBC Urine WBC Amorphous Sediment Urine Bacteria Urine Yeast Urine Sperm Ur Culture Indicated? Nasal Screen MRSA (PCR) Chlamy pneumoniae PCR Not detected Adenovirus (PCR) Not detected B. pertussis DNA (PCR) Not detected B.parapertussis DNA PCR Not detected Coronavirus OC43 (PCR) Not detected Coronavirus HKU1 (PCR) Not detected Coronavirus 229E (PCR) Not detected SARS-CoV-2 (PCR) Not detected Coronavirus NL63 (PCR) Not detected Human Metapneumovir PCR Not detected Influenza Type A (PCR) Not detected Influenza Type B (PCR) Not detected M. pneumoniae (PCR) Not detected Parainfluenza 1 (PCR) Not detected Parainfluenza 2 (PCR) Not detected Parainfluenza 3 (PCR) Not detected Parainfluenza 4 (PCR) Not detected RSV (PCR) Not detected Entero/Rhino (PCR) Not detected 11/13/22 11/13/22 11/13/22 10:56 10:56 10:56 WBC RBC Hgb Hct MCV MCH MCHC RDW Plt Count Neut % (Auto) Lymph % (Auto) [place] % (Auto) Eos % (Auto) Baso % (Auto) Neut # (Auto) Lymph # (Auto) [place] # (Auto) Eos # (Auto) Baso # (Auto) RBC Morphology Hypochromasia Poikilocytosis Anisocytosis Spherocytes Target Cells Ovalocytes Troy Cells Acanthocytes (Spur) PT INR APTT Sodium 136 L Potassium 3.9 Chloride 104 Carbon Dioxide 24 BUN 32 H Creatinine 1.30 H Estimated GFR 56 L BUN/Creatinine Ratio 24.6 H Glucose 100 Lactate 2.6 H Calcium 7.9 L Magnesium 1.5 L Total Bilirubin 1.3 AST 25 ALT 16 Alkaline Phosphatase 89 Total Creatine Kinase 34 L CK-MB (CK-2) TNP CK-MB (CK-2) Rel Index TNP Troponin I < 0.012 Total Protein 6.1 L Albumin 3.2 L Globulin 2.9 Albumin/Globulin Ratio 1.1 Lipase 49 Procalcitonin 0.09 Urine Color Urine Appearance Urine pH Ur Specific [place] Urine Protein Urine Glucose (UA) Urine Ketones Urine Occult Blood Urine Nitrate Urine Bilirubin Urine Urobilinogen Ur Leukocyte Esterase Urine RBC Urine WBC Amorphous Sediment Urine Bacteria Urine Yeast Urine Sperm Ur Culture Indicated? Nasal Screen MRSA (PCR) Chlamy pneumoniae PCR Adenovirus (PCR) B. pertussis DNA (PCR) B.parapertussis DNA PCR Coronavirus OC43 (PCR) Coronavirus HKU1 (PCR) Coronavirus 229E (PCR) SARS-CoV-2 (PCR) Coronavirus NL63 (PCR) Human Metapneumovir PCR Influenza Type A (PCR) Influenza Type B (PCR) M. pneumoniae (PCR) Parainfluenza 1 (PCR) Parainfluenza 2 (PCR) Parainfluenza 3 (PCR) Parainfluenza 4 (PCR) RSV (PCR) Entero/Rhino (PCR) 11/13/22 11/13/22 11/13/22 13:35 14:40 18:15 WBC RBC Hgb Hct MCV MCH MCHC RDW Plt Count Neut % (Auto) Lymph % (Auto) [place] % (Auto) Eos % (Auto) Baso % (Auto) Neut # (Auto) Lymph # (Auto) [place] # (Auto) Eos # (Auto) Baso # (Auto) RBC Morphology Hypochromasia Poikilocytosis Anisocytosis Spherocytes Target Cells Ovalocytes Connor Cells Acanthocytes (Spur) PT INR APTT Sodium Potassium Chloride Carbon Dioxide BUN Creatinine Estimated GFR BUN/Creatinine Ratio Glucose Lactate 1.5 Calcium Magnesium Total Bilirubin AST ALT Alkaline Phosphatase Total Creatine Kinase CK-MB (CK-2) CK-MB (CK-2) Rel Index Troponin I Total Protein Albumin Globulin Albumin/Globulin Ratio Lipase Procalcitonin Urine Color Yellow Urine Appearance Cloudy Urine pH 5.5 Ur Specific [place] >=1.030 H Urine Protein 1+ H Urine Glucose (UA) Negative Urine Ketones Negative Urine Occult Blood 3+ H Urine Nitrate Negative Urine Bilirubin Negative Urine Urobilinogen 0.2 Ur Leukocyte Esterase 1+ H Urine RBC 5-10/hpf H Urine WBC 5-10/hpf H Amorphous Sediment 1+ Urine Bacteria Few (2-10) H Urine Yeast 0-1/hpf Urine Sperm 1-2 Ur Culture Indicated? Specimen cultured Nasal Screen MRSA (PCR) Not detected Chlamy pneumoniae PCR Adenovirus (PCR) B. pertussis DNA (PCR) B.parapertussis DNA PCR Coronavirus OC43 (PCR) Coronavirus HKU1 (PCR) Coronavirus 229E (PCR) SARS-CoV-2 (PCR) Coronavirus NL63 (PCR) Human Metapneumovir PCR Influenza Type A (PCR) Influenza Type B (PCR) M. pneumoniae (PCR) Parainfluenza 1 (PCR) Parainfluenza 2 (PCR) Parainfluenza 3 (PCR) Parainfluenza 4 (PCR) RSV (PCR) Entero/Rhino (PCR) 11/14/22 11/14/22 04:15 04:15 WBC 13.1 H RBC 4.47 L Hgb 10.0 L Hct 31.9 L MCV 71.3 L MCH 22.4 L MCHC 31.4 RDW 20.6 H Plt Count 223 Neut % (Auto) 79.2 H Lymph % (Auto) 7.7 L [place] % (Auto) 12.6 Eos % (Auto) 0.2 L Baso % (Auto) 0.3 Neut # (Auto) 19664 H Lymph # (Auto) 1000 L [place] # (Auto) 1600 H Eos # (Auto) 0 Baso # (Auto) 0 RBC Morphology See below Hypochromasia 1+ H Poikilocytosis Anisocytosis 2+ H Spherocytes Target Cells Ovalocytes 1+ H [place] Cells 2+ H Acanthocytes (Spur) 1+ PT INR APTT Sodium 138 Potassium 3.9 Chloride 110 H Carbon Dioxide 20 L BUN 27 H Creatinine 1.02 Estimated GFR > 60 BUN/Creatinine Ratio 26.5 H Glucose 99 Lactate Calcium 7.1 L Magnesium Total Bilirubin 0.9 AST 111 H ALT 69 H Alkaline Phosphatase 148 H D Total Creatine Kinase CK-MB (CK-2) CK-MB (CK-2) Rel Index Troponin I Total Protein 5.1 L Albumin 2.5 L Globulin 2.6 Albumin/Globulin Ratio 1.0 Lipase Procalcitonin Urine Color Urine Appearance Urine pH Ur Specific [place] Urine Protein Urine Glucose (UA) Urine Ketones Urine Occult Blood Urine Nitrate Urine Bilirubin Urine Urobilinogen Ur Leukocyte Esterase Urine RBC Urine WBC Amorphous Sediment Urine Bacteria Urine Yeast Urine Sperm Ur Culture Indicated? Nasal Screen MRSA (PCR) Chlamy pneumoniae PCR Adenovirus (PCR) B. pertussis DNA (PCR) B.parapertussis DNA PCR Coronavirus OC43 (PCR) Coronavirus HKU1 (PCR) Coronavirus 229E (PCR) SARS-CoV-2 (PCR) Coronavirus NL63 (PCR) Human Metapneumovir PCR Influenza Type A (PCR) Influenza Type B (PCR) M. pneumoniae (PCR) Parainfluenza 1 (PCR) Parainfluenza 2 (PCR) Parainfluenza 3 (PCR) Parainfluenza 4 (PCR) RSV (PCR) Entero/Rhino (PCR) [facility] Medical History Arthritis Atrial fibrillation Atrial flutter Barretts esophagus CHF (congestive heart failure) Chronic atrial fibrillation Chronic cough Chronic heart failure with preserved ejection fraction Degenerative arthritis Eosinophilia GERD (gastroesophageal reflux disease) GI bleed History of cardioversion Iron deficiency anemia Mixed hyperlipidemia Physical deconditioning Pulmonary fibrosis Spinal stenosis of lumbar region with neurogenic claudication Thrombocytopenia Thrombotic thrombocytopenic purpura (TTP) Urinary retention Surgical History History of coronary angioplasty with insertion of stent Hx of cholecystectomy Hx of tonsillectomy Family History Mother Breast cancer Social History marital status: household members: spouse Smoking Status: Never smoker alcohol intake: current Assessment & Plan Assessment & Plan narrative: 1. Hypotensive shock/sepsis-patient off of Levophed. Blood pressure relatively stable. Somewhat minimally tachycardic. Continue with IV fluids inappropriate broad-spectrum antibiotic therapy. Previous echo demonstrated significant evidence of right heart failure and in that setting generally fluid resuscitation is what is required. Will continue with that for now while c ontinuing to try and wean off of Levophed Fortunately renal function appears to have improved 2. UTI-patient with urine finding suggestive of infection and with a chronic or least long-term indwelling Mccormack catheter that seems most likely source of infection. Continue with his current antibiotic therapy until cultures can guide more specific therapy. Current therapy based on previous urine culture primarily 3. Atrial fibrillation-patient's heart rate is much improved, well at least improved, off of the Levophed. Continue usual medications no need her additional therapies at this time in my opinion. 4. Heart failure-patient's left ventricular function normal on echocardiography in September of this year. Did show evidence of significant evidence probable right heart failure likely secondary to his pulmonary disease. No evidence of acute congestive heart failure at this time despite several L of fluid resuscitation. Continue monitor carefully. 5. Pulmonary fibrosis-based primarily on CT imaging. Has not required oxygen therapy as an outpatient. Seems stable at this point. 6. GI-patient with abnormal LFTs including elevated alk-phos. I wonder if this could be a source of infection as well. However patient is completely asymptomatic in his exam is completely benign. I am going to hold off on imaging at this time but if there is further increases in his LFTs or he developed some sort of other clinical indication I would have a low threshold for obtaining CT scan of the abdomen and pelvis. The elevated LFTs and alk-phos could be secondary to his significant infection which caused him to present with some degree of hypotension etcetera. Hypotension itself could also be somewhat responsible and if so these numbers should improve rather rapidly. I spent a total of 60 minutes of critical care time on this patient's care today; this time is exclusive of procedural time.
--- NOTE | 2022-11-14 12:07 | CM.DANOTE ---
Initial Discharge Assessment Note: Case reviewed, met with patient. Introduced self and role. Payer: [employer] and self pay PCP: Dr Wm Pineda 81 year old male admitted for urosepsis, ARANZA and dehydration. Chronic smith catheter. Here 2 weeks ago for catheter associated UTI/ARANZA. Weak and fatigued x 1 week. H/o CHF/Afib. Patient states he cannot walk and is wheelchair bound in the last few years, he can self transfer with help and use of a walker. He and use paratransit/[facility] for transport. He will need most likely cabulance on dc as does not drive. Spouse is not feeling well currently, they live in [place] in their own home. MD notes state that patient has no active cardiology services. Patient is A/O and mostly independent with some help needed in ADLs. Notified [facility] of patient's hospital admission. Plan: When medically cleared, discharge home to previous living arrangement and need to order Resumption of Care for [facility]: RN, PT/OT, bath aide. Will need Cabulance for transport (spouse doesn't drive). NEREYDA Discharge Planning/Care Management CM Discharge Assessment Start: 11/14/22 11:55 Freq: Status: Active Protocol: Document 11/14/22 11:56 (Rec: 11/14/22 12:07 [id number]) Discharge Planning Assessment Assigned Tightening Machine Operator Mirela Milan RN/DCP Advance Directives? Yes: Polst Advance Directives on File No History Provided By Patient,Medical Record Prior Living Arrangements House Household Members spouse Type of transporation used prior to Public Transportation admit Comment Uses [facility] paratransit Independent with ADL's Yes Is patient alert and oriented? Yes Needs Assistance With Bathing,Meal Prep,Managing Medications,Home Chores / Shopping Comment Patient is wheelchair bound Caregiver for Another No DME Already Rented / Owned Wheelchair,FWW / Walker Patient/Family Preference Home with Home Health Comment Currently using [facility] RN, PT/OT, bath aide. Will need resume orders. Comment Patient most likely will need non-urgent BLS transport home. Patient would like all services with [facility] resumed . Discharge Plan Home Community Services Physical Therapy,Occupational Therapy,Home Health Aid,Home Health Nurse Transportation Arrangement Spouse does not drive, will need cabulance, pt is w/c bound. [facility] Referrals Initiated Home Health If patient plan is home with home health No: Will need to call [facility] : Has signed face to face form been and obtain order to resume. completed? Review Status In Process Next Review Type Continued Stay Review
[2022-11-14] MEDS: METOPROLOL ER 25 MG TABLET 12.5 MG PO ×2 (16:31→21:14)
[2022-11-14] MEDS: METOPROLOL TARTRATE 5 MG/5 ML INJ IV (18:21)
[2022-11-14] MEDS: POTASSIUM CHLORIDE 20 MEQ/15 ML UDC 40 MEQ PO (20:18)
[2022-11-15] VITALS (114 sets, daily range): BP systolic 67–141; BP diastolic 35–95; PULSE 91–257; RESP 17–29; TEMP 36.6–37.4; O2SAT 87–100
[2022-11-15] MEDS: ACETAMINOPHEN 325 MG TABLET 650 MG PO (02:09)
[2022-11-15 04:40] LABS: Add Manual Diff / Slide Review NO; Basophils Absolute Auto 200 /uL (0-100); Basophils Percent Auto 1.6 % (0-2); Eosinophils Absolute Auto 0 /uL (0-450); Eosinophils Percent Auto 0.2 % (2-4); Hematocrit 30.7 % (41-53); Hemoglobin 9.8 g/dL (13.5-17.5); Lymphocytes Absolute Auto 600 /uL (1100-4500); Lymphocytes Percent Auto 6.1 % (25-40); Mean Corpuscular Hemoglobin 22.9 PG (26-34); Mean Corpuscular Volume 71.5 fL (80-100); Monocytes Absolute Auto 900 /uL (0-900); Monocytes Percent Auto 8.6 % (3-14); Neutrophils Absolute Auto 8500 /uL (1500-7000); Neutrophils Percent Auto 83.5 % (50-75); Platelet Count 158 X10^3/uL (150-400); Red Blood Cell Count 4.29 X10^6/uL (4.5-5.9); Red Cell Distribution Width 20.8 % (11.6-14.8); White Blood Cell Count 10.1 X10^3/uL (4.5-11.0)
[2022-11-15 04:54] LABS: Alanine Aminotransferase 39 IU/L (<50); Albumin 2.3 g/dL (3.5-5.0); Albumin Globulin Ratio 0.9 (1.0-2.8); Alkaline Phosphatase 118 U/L (38-126); Aspartate Aminotransferase 34 IU/L (17-59); BUN Creatinine Ratio 21.7 (6-22); Bilirubin Total 0.7 mg/dL (0.2-1.3); Blood Urea Nitrogen 20 mg/dL (9-20); Calcium 7.3 mg/dL (8.4-10.2); Carbon Dioxide 21 mmol/L (22-32); Chloride 112 mmol/L (98-107); Estimated Glomerular Filt Rate > 60 mL/min (>60); Globulin 2.6 g/dL (1.7-4.1); Glucose 98 mg/dL (80-110); HEMOLYSIS < 15 (0-50); Potassium 4.2 mmol/L (3.4-5.1); Sodium 138 mmol/L (137-145); Total Protein 4.9 g/dL (6.3-8.2)
[2022-11-15] MEDS: PIPERACILLIN/TAZO 4.5 GM in SODIUM CHLORIDE 0.9% 100 ML IV (05:14)
[2022-11-15 05:21] LABS: Magnesium 1.4 mg/dL (1.6-2.3)
[2022-11-15 05:30] LABS: NT-proBNP (BNP-Adult 18+) 7660 pg/mL (<450)
--- NOTE | 2022-11-15 05:32 | PC.NURSE ---
0530 Called and spoke with Dr. Simons and reported BP trending down with MAPs of 61 - 64. And HR mostly 110's, but occasionally elevated into the 140's. Reported Mag level of 1.4 on morning labs. New order for 500mL NS bolus over 1 hour and digoxin 0.25 IV x 1 dose.
[2022-11-15] MEDS: SODIUM CHLORIDE 0.9% 500 ML IV (05:40)
[2022-11-15 05:50] LABS: Anisocytosis 3+; Hypochromasia 1+; Microcytosis 1+
[2022-11-15 05:51] LABS: Acanthocytes 1+; Ovalocytes 1+; Schistocytes 1+
[2022-11-15] MEDS: DIGOXIN 500 MCG/2 ML AMPUL 250 MCG IV (06:27)
[2022-11-15] MEDS: PANTOPRAZOLE DR 40 MG TABLET PO ×2 (07:47→21:09)
[2022-11-15] MEDS: APIXABAN 5 MG TABLET 2.5 MG PO ×2 (08:35→21:09)
[2022-11-15] MEDS: FOLIC ACID 1 MG TABLET PO (08:36)
[2022-11-15] MEDS: POTASSIUM CHLORIDE 20 MEQ/15 ML UDC 40 MEQ PO ×2 (08:36→21:09)
[2022-11-15] MEDS: ATORVASTATIN 20 MG TABLET 40 MG PO (08:36)
[2022-11-15] MEDS: TAMSULOSIN 0.4 MG CAPSULE PO (08:36)
--- NOTE | 2022-11-15 09:00 | OT.IPNOTE ---
Ot eval order received and chart reviewed. Nursing consulted and pt is not medically stable for therapy services this AM. Notified P.T. Will hold and continue to follow.
[2022-11-15] MEDS: MAGNESIUM CHLORIDE 64 MG TABLET 128 MG PO (09:59)
[2022-11-15] MEDS: LACTATED RINGERS 1,000 ML 150 ML IV (10:39)
[2022-11-15] MEDS: SODIUM CHLORIDE 0.9% 1,000 ML 150 ML IV ×2 (10:57→17:25)
[2022-11-15] MEDS: LACTATED RINGERS 1,000 ML 1000 ML IV (10:57)
--- NOTE | 2022-11-15 11:15 | CM.DPC ---
Addendum entered by ALYSSA Valdes 11/15/22 13:51: ADD: [facility] admissions confirms they can accept pt but need PT/OT notes to initiate insurance auth or it will be denied. Awaiting PT/OT eval to then send to [facility] billie. BF Original Note: DCP SNF vs HH planning Per MD, pt not yet medically stable to d/c today and below baseline and feels that pt high readmission risk and needs SNF prior to d/c home. Per PT/OT, pending still as pt's bp and heart rate uncontrolled this morning and will attempt again this afternoon to determine if pt back to baseline with independence with transfers or recommending SNF as pt typically uses w/c at baseline. SW met bedside with pt and explained role and he confirms he would be agreeable to SNF if his insurance approves and accepted at SNF. Pt states his son who travels is in [place] and now planning to come up to [facility] to visit and stay a while but unclear what day son will arrive or how long he may stay. SW discussed [employer] contracted SNFs and pt is agreeable to referral to [facility], [facility] (think they are contracted now) and [facility]. Pt confirms he likes [facility] but thinks he may owe them some money so no referral sent there yet. PASRR completed. Plan: SW to follow for PT/OT eval and recommendations later today when pt more medically appropriate and SNF reviews to confirm if SNF can accept and initiate [employer] MCR auth today. ALYSSA Valdes
[2022-11-15] MEDS: PIPERACILLIN/TAZO 3.375 GM in SODIUM CHLORIDE 0.9% 100 ML IV ×2 (13:38→21:11)
--- NOTE | 2022-11-15 14:02 | P.PN_ITS ---
Subjective Subjective Interval history: seen at 9am CC: weakness hypotension Pt doing ok with zosyn and IVF and nutrition - ate about half breakfast this morning, encouraged him to eat more. Muscles seem to be relaxing a bit as he is able to extendi his legs better today to about 70 percent. still no edema or c rackles noted, urine still rather dark- looks dry. Exam Vital Signs (past 8 hours): - 11/15/22 06:07 11/15/22 06:27 11/15/22 06:10 Temperature Pulse Rate 111 H 118 H 107 H Respiratory Rate 19 18 Blood Pressure 82/58 L Pulse Oximetry 97 95 11/15/22 06:15 11/15/22 06:15 11/15/22 06:17 Temperature Pulse Rate 107 H 107 H Respiratory Rate 19 17 Blood Pressure 67/35 L Pulse Oximetry 96 96 11/15/22 06:17 11/15/22 06:19 11/15/22 06:19 Temperature Pulse Rate 117 H Respiratory Rate 21 Blood Pressure 73/47 L 82/58 L Pulse Oximetry 98 11/15/22 06:20 11/15/22 06:30 11/15/22 06:30 Temperature Pulse Rate 104 H 108 H Respiratory Rate 18 17 Blood Pressure 85/63 L Pulse Oximetry 98 95 11/15/22 06:40 11/15/22 06:45 11/15/22 06:45 Temperature Pulse Rate 109 H 97 H Respiratory Rate 19 18 Blood Pressure 93/60 Pulse Oximetry 97 98 11/15/22 06:50 11/15/22 07:00 11/15/22 07:00 Temperature Pulse Rate 99 H 100 H Respiratory Rate 20 18 Blood Pressure 92/62 Pulse Oximetry 97 97 11/15/22 07:10 11/15/22 07:15 11/15/22 07:15 Temperature 97.8 F Pulse Rate 97 H 99 H Respiratory Rate 18 17 Blood Pressure 94/63 Pulse Oximetry 97 97 11/15/22 07:20 11/15/22 07:30 11/15/22 07:30 Temperature Pulse Rate 100 H 102 H Respiratory Rate 18 18 Blood Pressure 98/66 Pulse Oximetry 98 98 11/15/22 07:40 11/15/22 07:45 11/15/22 07:45 Temperature Pulse Rate 91 H 94 H Respiratory Rate 18 19 Blood Pressure 97/70 Pulse Oximetry 98 98 11/15/22 07:50 11/15/22 08:00 11/15/22 08:00 Temperature Pulse Rate 96 H 106 H Respiratory Rate 21 19 Blood Pressure 110/70 Pulse Oximetry 95 89 L 11/15/22 09:47 11/15/22 08:10 11/15/22 08:15 Temperature Pulse Rate 97 H 93 H Respiratory Rate 17 Blood Pressure 94/77 96/71 Pulse Oximetry 98 11/15/22 08:15 11/15/22 08:20 11/15/22 08:30 Temperature Pulse Rate 95 H 114 H Respiratory Rate 17 25 H Blood Pressure 94/77 Pulse Oximetry 87 L 11/15/22 08:30 11/15/22 08:40 11/15/22 08:50 Temperature Pulse Rate 139 H 103 H 104 H Respiratory Rate 19 19 20 Blood Pressure Pulse Oximetry 11/15/22 09:00 11/15/22 09:00 11/15/22 09:10 Temperature Pulse Rate 113 H 105 H Respiratory Rate 20 24 Blood Pressure 107/54 L Pulse Oximetry 92 11/15/22 09:20 11/15/22 09:30 11/15/22 09:40 Temperature Pulse Rate 118 H 109 H 110 H Respiratory Rate 19 19 19 Blood Pressure Pulse Oximetry 98 98 98 11/15/22 09:50 11/15/22 10:00 11/15/22 10:00 Temperature Pulse Rate 110 H 101 H Respiratory Rate 21 19 Blood Pressure 84/59 L Pulse Oximetry 99 99 11/15/22 10:10 11/15/22 10:17 11/15/22 10:17 Temperature Pulse Rate 105 H 102 H Respiratory Rate 18 19 Blood Pressure 87/60 L Pulse Oximetry 98 99 11/15/22 10:20 11/15/22 10:30 11/15/22 10:40 Temperature Pulse Rate 106 H 98 H 104 H Respiratory Rate 20 19 29 H Blood Pressure Pulse Oximetry 98 99 100 11/15/22 10:50 11/15/22 11:00 11/15/22 11:00 Temperature Pulse Rate 101 H 100 H Respiratory Rate 21 20 Blood Pressure 92/59 L Pulse Oximetry 99 99 11/15/22 11:10 11/15/22 11:20 11/15/22 11:30 Temperature Pulse Rate 112 H 105 H Respiratory Rate 19 19 Blood Pressure 101/58 L Pulse Oximetry 99 99 11/15/22 11:30 11/15/22 11:40 11/15/22 11:50 Temperature Pulse Rate 99 H 95 H 96 H Respiratory Rate 20 19 18 Blood Pressure Pulse Oximetry 96 100 100 11/15/22 12:00 11/15/22 12:00 11/15/22 12:10 Temperature Pulse Rate 100 H 94 H Respiratory Rate 18 19 Blood Pressure 106/64 Pulse Oximetry 100 99 11/15/22 12:20 11/15/22 12:30 11/15/22 12:30 Temperature Pulse Rate 112 H 102 H Respiratory Rate 22 24 Blood Pressure 99/57 L Pulse Oximetry 11/15/22 12:40 11/15/22 12:43 11/15/22 12:43 Temperature Pulse Rate 100 H 104 H Respiratory Rate 21 23 Blood Pressure 104/58 L Pulse Oximetry 97 11/15/22 12:00 11/15/22 12:50 11/15/22 13:00 Temperature 97.8 F Pulse Rate 101 H Respiratory Rate 19 Blood Pressure 99/67 Pulse Oximetry 11/15/22 13:00 Temperature Pulse Rate 92 H Respiratory Rate 18 Blood Pressure Pulse Oximetry Oxygen Delivery Method Room Air Oxygen Flow Rate 0 Narrative Exam Narrative: alert elder laying in bed Const Nutritional Appearance: cachectic [facility] Head: normocephalic and atraumatic Eyes General: appearance normal, both eyes and all related structures Resp Other: clear to auscultation bilaterally Cardio Other: mildly elevated tachycardia, irregularly irregular rhythm, S1/S2 no pedal edema GI Other: soft nontender active bowel sounds Neuro General: patient alert, patient awake and patient oriented x3 Extrem Other: bilateral lower extremity contractures Psych Appearance: grossly normal Objective Labs 11/15/22 04:08 11/15/22 04:08 Labs: Laboratory Results - last 24 hr 11/15/22 11/15/22 11/15/22 04:08 04:08 04:08 WBC 10.1 RBC 4.29 L Hgb 9.8 L Hct 30.7 L MCV 71.5 L MCH 22.9 L MCHC 32.0 RDW 20.8 H Plt Count 158 Neut % (Auto) 83.5 H Lymph % (Auto) 6.1 L Richardson % (Auto) 8.6 Eos % (Auto) 0.2 L Baso % (Auto) 1.6 Neut # (Auto) 8500 H Lymph # (Auto) 600 L Richardson # (Auto) 900 Eos # (Auto) 0 Baso # (Auto) 200 H RBC Morphology See below Hypochromasia 1+ H Anisocytosis 3+ H Microcytosis 1+ H Ovalocytes 1+ H Acanthocytes (Spur) 1+ Schistocytes 1+ H Sodium 138 Potassium 4.2 Chloride 112 H Carbon Dioxide 21 L BUN 20 Creatinine 0.92 Estimated GFR > 60 BUN/Creatinine Ratio 21.7 Glucose 98 Calcium 7.3 L Magnesium 1.4 L Total Bilirubin 0.7 AST 34 ALT 39 Alkaline Phosphatase 118 NT-Pro-B Natriuret Pep 7660 H Total Protein 4.9 L Albumin 2.3 L Globulin 2.6 Albumin/Globulin Ratio 0.9 L PFSH Medical History Arthritis Atrial fibrillation Atrial flutter Barretts esophagus CHF (congestive heart failure) Chronic atrial fibrillation Chronic cough Chronic heart failure with preserved ejection fraction Degenerative arthritis Eosinophilia GERD (gastroesophageal reflux disease) GI bleed History of cardioversion Iron deficiency anemia Mixed hyperlipidemia Physical deconditioning Pulmonary fibrosis Spinal stenosis of lumbar region with neurogenic claudication Thrombocytopenia Thrombotic thrombocytopenic purpura (TTP) Urinary retention Surgical History History of coronary angioplasty with insertion of stent Hx of cholecystectomy Hx of tonsillectomy Family History Mother Breast cancer Social History marital status: household members: spouse Smoking Status: Never smoker alcohol intake: current Assessment & Plan Assessment & Plan narrative: #Hypotensive shock/sepsis-patient on and off of Levophed.? Blood pressure relatively stable.? Somewhat minimally tachycardic.? Continue with IV fluids inappropriate broad-spectrum antibiotic therapy.? Previous echo demonstrated significant evidence of right heart failure and in that setting generally concur fluid resuscitation is what is required.? Will continue with that for now while continuing to try and wean off of Levophed. Another bag of LR and bump NS to 150. Renal function improving. #UTI in setting of indwelling Mccormack #Urinary retention Switched to Zosyn based on culture, continue with IVF #Atrial fibrillation Improvement noted off of the Levophed.? Holding metoprolol whiff he takes at home until his pressures are more stable. continue eliquis. #Hx of chronic diastolic heart failure present on admission Left ventricular function normal on echocardiography in September of this year.? Did show evidence of significant evidence probable right heart failure likely secondary to his pulmonary disease.? No evidence of acute congestive heart failure at this time despite several L of fluid resuscitation.? Continue monitor carefully. Encourage IS use. #Pulmonary fibrosis Based primarily on CT imaging.? Has not required oxygen therapy as an outpatient.? Seems stable at this point. Monitor. #Elevated LFTs Benign exam, monitor, consider CT abd/pelvis is worsening.? The elevated LFTs and alk-phos could be secondary to his significant infection which caused him to present with some degree of hypotension etcetera.? Hypotension itself could also be somewhat responsible and if so these numbers should improve rather rapidly. #protein calorie malnutrition, severe continue supplementation of diet code: DNR MDM: Tory DVT ppx: tala PCP: Miriam diet: regular with supplements dispo: Pt concedes we need a different discharge plan than we have used of late and is open to a rehab or SNF option. CM is pursuing. time spent: 60 minute
--- NOTE | 2022-11-15 16:47 | PT-IP ANOTE ---
Received PT orders and reviewed the chart. Met with pt and explained the role of PT in this setting, including the importance of continued mobility as well as the need for PT assessment to transition pt to next care setting. Pt states he has been unable to complete transfers independently lately which is his apparent baseline. PT offered to assist pt to transfer to the chair or to a wheelchair but pt refused. Will follow up next service date.
[2022-11-15] MEDS: METOPROLOL ER 25 MG TABLET 12.5 MG PO (21:10)
[2022-11-16] VITALS (104 sets, daily range): BP systolic 74–121; BP diastolic 50–88; PULSE 83–132; RESP 14–25; TEMP 36.2–37.1; O2SAT 96–99
[2022-11-16] MEDS: SODIUM CHLORIDE 0.9% 1,000 ML 150 ML IV ×2 (00:01→10:10)
[2022-11-16 04:56] LABS: Add Manual Diff / Slide Review NO; Basophils Absolute Auto 0 /uL (0-100); Basophils Percent Auto 0.4 % (0-2); Eosinophils Absolute Auto 100 /uL (0-450); Eosinophils Percent Auto 1.4 % (2-4); Hematocrit 29.7 % (41-53); Hemoglobin 9.4 g/dL (13.5-17.5); Lymphocytes Absolute Auto 700 /uL (1100-4500); Lymphocytes Percent Auto 9.7 % (25-40); Mean Corpuscular HGB Conc 31.8 % (30-36); Mean Corpuscular Hemoglobin 22.7 PG (26-34); Mean Corpuscular Volume 71.3 fL (80-100); Monocytes Absolute Auto 800 /uL (0-900); Monocytes Percent Auto 10.3 % (3-14); Neutrophils Absolute Auto 5700 /uL (1500-7000); Neutrophils Percent Auto 78.2 % (50-75); Platelet Count 167 X10^3/uL (150-400); Red Blood Cell Count 4.16 X10^6/uL (4.5-5.9); Red Cell Distribution Width 21.2 % (11.6-14.8); White Blood Cell Count 7.3 X10^3/uL (4.5-11.0)
[2022-11-16 05:01] LABS: Magnesium 1.4 mg/dL (1.6-2.3)
[2022-11-16 05:03] LABS: Alanine Aminotransferase 29 IU/L (<50); Albumin 2.1 g/dL (3.5-5.0); Albumin Globulin Ratio 0.8 (1.0-2.8); Alkaline Phosphatase 109 U/L (38-126); Aspartate Aminotransferase 23 IU/L (17-59); Bilirubin Total 0.6 mg/dL (0.2-1.3); Blood Urea Nitrogen 15 mg/dL (9-20); Calcium 7.1 mg/dL (8.4-10.2); Carbon Dioxide 19 mmol/L (22-32); Chloride 114 mmol/L (98-107); Estimated Glomerular Filt Rate > 60 mL/min (>60); Globulin 2.5 g/dL (1.7-4.1); Glucose 82 mg/dL (80-110); HEMOLYSIS < 15 (0-50); Potassium 4.3 mmol/L (3.4-5.1); Sodium 137 mmol/L (137-145); Total Protein 4.6 g/dL (6.3-8.2)
[2022-11-16 05:19] LABS: Anisocytosis 3+; Hypochromasia 1+
[2022-11-16 05:20] LABS: Acanthocytes 1+; Microcytosis 1+; Ovalocytes 1+; Schistocytes 1+
[2022-11-16] MEDS: PIPERACILLIN/TAZO 3.375 GM in SODIUM CHLORIDE 0.9% 100 ML IV ×3 (05:54→22:02)
[2022-11-16] MEDS: PANTOPRAZOLE DR 40 MG TABLET PO ×2 (08:17→20:51)
[2022-11-16] MEDS: APIXABAN 5 MG TABLET 2.5 MG PO ×2 (09:13→20:50)
[2022-11-16] MEDS: METOPROLOL ER 25 MG TABLET 12.5 MG PO ×2 (09:14→20:51)
[2022-11-16] MEDS: MAGNESIUM OXIDE 400 MG TABLET PO ×2 (09:15→20:50)
[2022-11-16] MEDS: ATORVASTATIN 20 MG TABLET 40 MG PO (09:15)
[2022-11-16] MEDS: POTASSIUM CHLORIDE 20 MEQ/15 ML UDC 40 MEQ PO ×2 (09:15→20:50)
[2022-11-16] MEDS: FOLIC ACID 1 MG TABLET PO (09:15)
[2022-11-16] MEDS: TAMSULOSIN 0.4 MG CAPSULE PO (09:15)
[2022-11-16] MEDS: HYDROCODONE/ACET 5/325 TABLET 1 TAB PO (10:27)
--- NOTE | 2022-11-16 12:10 | OT.IP.EVAL ---
Current Diagnoses Sepsis, unspecified organism (11/13/22) Past Medical History (Last Reviewed 11/14/22 @ 10:40 by Brian Simons MD) Arthritis Atrial fibrillation Atrial flutter Barretts esophagus CHF (congestive heart failure) Chronic atrial fibrillation Chronic cough Chronic heart failure with preserved ejection fraction Degenerative arthritis Eosinophilia GERD (gastroesophageal reflux disease) GI bleed History of cardioversion Iron deficiency anemia Mixed hyperlipidemia Physical deconditioning Pulmonary fibrosis Spinal stenosis of lumbar region with neurogenic claudication Thrombocytopenia Thrombotic thrombocytopenic purpura (TTP) Urinary retention Surgical History (Last Reviewed 11/14/22 @ 10:40 by Brian Simons MD) History of coronary angioplasty with insertion of stent Hx of cholecystectomy Hx of tonsillectomy Occupational Therapy Inpatient Evaluation/Re-Eval M1 PT/OT-IP Prior Functional Status Start: 11/16/22 12:25 Freq: NEEDED Status: Active Protocol: Document 11/16/22 11:34 [facility] (Rec: 11/16/22 12:48 [facility] [id number]) Medical Review Prior Functional Status Communication Independent Mobility and Gait Pt states have been mainly WC bound at home. Activities of Daily Living and IADL's Pt states occasionally pt's will assist him with LB dressing needs in bed. Social History Household Members spouse Living Arrangements House Number of Stairs To Enter/Railing? ramp to enter Home Environment Tub/Shower Home Equipment Front Wheel Walker,Manual Wheelchair,Tub Transfer Bench, Hand Held Shower,Long Handled Sponge,Long Handled Shoe Horn, Demo Event Specialist,Sock Aid Additional Social History Comment Pt's assists pt with money management needs and with dressing at times. M2 OT-IP Current Condition Start: 11/16/22 12:25 Freq: Status: Active Protocol: Document 11/16/22 11:34 [facility] (Rec: 11/16/22 12:48 [facility] [id number]) Occupational Therapy Current Condition Current Condition Evaluation Date 11/16/22 Treatment Diagnosis UTI, sepsis M3 OT- IP Subjective and Pain Start: 11/16/22 12:25 Freq: Status: Active Protocol: Document 11/16/22 11:34 [facility] (Rec: 11/16/22 12:48 [facility] [id number]) OT- Subjective Occupational Therapy Visit Type Type Initial Evaluation Visit Start Time 11:34 Visit Stop Time 12:10 Total Visit Minutes 36 Occupational Therapy Visit Comments Patient Comments Pt agreed to get up to the recliner for lunch. Patient/Caregiver Goals To get better and stronger to be able to walk with the walker eventually. OT Pain Assessment Pain When Pain Assessed At Rest Pain Present Pain Present Denied Pain M4 OT- IP ADL's Start: 11/16/22 12:25 Freq: Status: Active Protocol: Document 11/16/22 11:34 [facility] (Rec: 11/16/22 12:48 [facility] [id number]) OT [id number] Comments OT Self-Feeding Comments not at meal time OT ADL-Grooming General Evaluation Grooming Ability Independent Areas Needing Assistance Retrieving/Set-up of Grooming Items Comments OT Grooming Comments Able to do after set-up. OT ADL-Oral Care General Eval Oral Care Ability Independent Areas of Assistance Retrieving/Set-Up of Items Comments Oral Care Comments Able to do after set-up while seated in the recliner. OT ADL-Dressing General Eval Lower Body Dressing Ability Maximum Assistance Comments OT Dressing Comments Assist for socks. OT ADL-Toileting General Evaluation Toileting Ability Total Assistance Areas Needing Assistance Empty Catheter or Colostomy Comments OT Toileting Comments Mccormack in place. OT ADL-Bathing Comments OT Bathing Comments NOt performed, sponge bath more appropriate at this time. M5 OT- IP IADL's Start: 11/16/22 12:25 Freq: Status: Active Protocol: Document 11/16/22 11:34 [facility] (Rec: 11/16/22 12:48 [facility] [id number]) OT-Instrumental Activities of Daily Living Deficits IADL Deficits Identified Deficits Home Safety Awareness Awareness of Need for Assistance at Home Good Awareness Home Safety Comments Increased time to solve home safety situations. Medication Management Medication Management Comments Pt states still does his own medications, would be best to have assist at this time as pt needing increased time for problem solving at this time. Money Management Money Management Caregiver Provides Assistance Meal Preparation Meal Preparation Caregiver Provides Assist Hop Worker Hop Worker Caregiver Provides Assist Driving Driving Concerns Identified Regarding Safety Driving Comments Pt states he was able to drive 2 weeks ago. M6 OT- IP Functional Cognition Start: 11/16/22 12:25 Freq: Status: Active Protocol: Document 11/16/22 11:34 [facility] (Rec: 11/16/22 12:48 [facility] [id number]) Cognitive Factors Limiting Selfcare Function Cognitive Ability Level of Alertness Alert Patient Orientation Name,Place,Situation Attention Span Ability Capable of Focused Attention, Capable of Sustained Attention Ability to Follow Commands Able to Follow One Step Commands Cognitive Comments Cognitive Assessment Comments Pt needing increased time to problem solve for home safety situations. Pt able to follow commands for ADL and mobility needs. OT- Vision and Hearing OT- Hearing Assessment OT- Hearing Assessment WFL OT- Vision Assessment Visual Acuity Glasses All The Time M7 OT- IP Mobility and Balance Start: 11/16/22 12:25 Freq: Status: Active Protocol: Document 11/16/22 11:34 [facility] (Rec: 11/16/22 12:48 [facility] [id number]) OT- Bed Mobility Assessment Supine to Sit Supine to Sit Assist Standby Assistance OT-Transfer Assessment Transfers Transfer Ability Moderate Assistance,1 Person Assistance Technique Transfer Destination Bed,Chair Transfer Technique Squat Pivot Devices Transfer Assistive Devices Gait Belt Comments Mobility Comments Pt with HOB up able to come to the edge of the bed on his own. Pt need able to sit on his own with good balance. BP supine 98/63, sitting 89/53, and after the transfer 107/67. Pt needing MODA to help squat pivot from the bed to recliner. Pt able to push his arms on the armrest to be able to get his hips up so aid able to get the waffle cushion underneath him. OT- Balance Assessment Sitting Balance and Reactions Static Sitting Balance Ability Good Dynamic Sitting Balance Ability Fair Standing Balance and Reactions Static Standing Balance Ability Poor M8 OT- IP Objective Assessments Start: 11/16/22 12:25 Freq: Status: Active Protocol: Document 11/16/22 11:34 [facility] (Rec: 11/16/22 12:48 [facility] [id number]) OT Gross Range of Motion Upper Extremity Range of Motion ROM Impairments Pt decreased at end ROM. OT Strength Comments Strength Comments BUE strength elbow to distal RUE 5/5, LUE 5/5 to 4/5 M9 OT- IP Assessment and Plan Start: 11/16/22 12:25 Freq: Status: Active Protocol: Document 11/16/22 11:34 [facility] (Rec: 11/16/22 12:48 [facility] [id number]) OT Summary Assessment and Plan Potential Rehabilitation Potential Good Analytic Complexity at Evaluation Moderate Summary OT Impairments Range of Motion,Strength, Balance,Functional Cognition, Functional Mobility,Self- Feeding,Grooming,Dressing, Toileting,Bathing,Toilet Transfers,Shower Transfers, Activity Tolerance Progress Towards Goals Slow Progress due to Medical Issues,Slow Progress due to Activity Tolerance,Slow Progress due to Cognition Assessment Summary Pt MOD complexity and main barriers are decreased activity tolerance , strength, and now needing MODA for squat pivot transfers and prior able to do on his own. Pt will benefit from skilled rehab and has a supportive family and wants to be able to resume home health after going to skilled rehab. Goals Dressing Goal Standby Assistance Toileting Goal Standby Assistance Bathing Goal Standby Assistance Toilet Transfer Goal Independent Shower Transfer Goal Standby Assistance Days to Meet Goals 15 Frequency of Treatment Frequency Of Treatment Once a Day Treatment Plan OT Treatment Plan ADL Training,Functional Cognition Training,Functional Mobility,Patient/Family Education,Discharge Planning Other Treatment Recommendations and Next Transfer to [facility] with Treatment Focus MARYANN. Discharge Recommendations OT Discharge Recommendations SNF Rehab Transportation Needs at Discharge Wheelchair/Cabulance
[2022-11-16] MEDS: SODIUM CHLORIDE 0.9% 1,000 ML 84 ML IV ×2 (12:37→20:49)
--- NOTE | 2022-11-16 13:05 | P.PN_ITS ---
Subjective Subjective Date Patient Seen: 11/16/22 Time Patient Seen: 13:05 Interval history: Patient is doing much better today. He was able to get up with physical therapy and is more conducive to rehab. He denies any shortness of breath. He does not have much of an appetite but he is working on eating a little bit more. Otherwise normal stooling. No chest pain or lightheadedness or dizziness. Reviewed his history. He is a new patient to me. Reviewed hospitalization and diagnostics. Twelve point review of systems is negative other than above Exam Vital Signs (past 8 hours): - 11/16/22 06:00 11/16/22 06:00 11/16/22 07:05 Temperature Pulse Rate 99 H 105 H Respiratory Rate 18 18 Blood Pressure 114/80 11/16/22 06:10 11/16/22 06:20 11/16/22 06:30 Temperature Pulse Rate 107 H 104 H 103 H Respiratory Rate 21 20 18 Blood Pressure 11/16/22 06:40 11/16/22 06:50 11/16/22 07:00 Temperature Pulse Rate 109 H 103 H 101 H Respiratory Rate 19 19 20 Blood Pressure 11/16/22 07:10 11/16/22 07:20 11/16/22 07:30 Temperature Pulse Rate 98 H 103 H 104 H Respiratory Rate 19 19 19 Blood Pressure 11/16/22 07:40 11/16/22 07:50 11/16/22 08:00 Temperature Pulse Rate 109 H 91 H Respiratory Rate 20 18 Blood Pressure 121/72 11/16/22 08:00 11/16/22 09:14 11/16/22 10:14 Temperature Pulse Rate 114 H 116 H 103 H Respiratory Rate 19 Blood Pressure 121/72 97/63 11/16/22 08:10 11/16/22 08:20 11/16/22 08:30 Temperature Pulse Rate 101 H 119 H 117 H Respiratory Rate 18 21 20 Blood Pressure 11/16/22 08:40 11/16/22 08:50 11/16/22 09:00 Temperature Pulse Rate 112 H 107 H 103 H Respiratory Rate 19 19 18 Blood Pressure 11/16/22 10:00 11/16/22 09:10 11/16/22 09:20 Temperature 98.7 F Pulse Rate 132 H 112 H Respiratory Rate 21 19 Blood Pressure 11/16/22 09:30 11/16/22 09:40 11/16/22 09:50 Temperature Pulse Rate 115 H 103 H 100 H Respiratory Rate 19 18 17 Blood Pressure 11/16/22 10:00 11/16/22 10:00 11/16/22 10:10 Temperature Pulse Rate 103 H 97 H Respiratory Rate 18 17 Blood Pressure 97/63 11/16/22 10:20 11/16/22 10:30 11/16/22 10:40 Temperature Pulse Rate 97 H 96 H 90 Respiratory Rate 19 18 16 Blood Pressure 11/16/22 10:50 11/16/22 11:00 11/16/22 11:10 Temperature Pulse Rate 87 103 H 88 Respiratory Rate 17 19 17 Blood Pressure 11/16/22 11:18 11/16/22 11:18 11/16/22 11:20 Temperature Pulse Rate 88 85 Respiratory Rate 16 16 Blood Pressure 95/56 L 11/16/22 11:30 11/16/22 11:40 11/16/22 11:41 Temperature Pulse Rate 92 H 97 H 100 H Respiratory Rate 17 17 18 Blood Pressure 11/16/22 11:41 11/16/22 11:49 11/16/22 11:49 Temperature Pulse Rate 127 H Respiratory Rate 25 H Blood Pressure 98/63 89/67 L 11/16/22 11:50 11/16/22 11:53 11/16/22 11:53 Temperature Pulse Rate 122 H 126 H Respiratory Rate 22 22 Blood Pressure 96/68 11/16/22 11:58 11/16/22 11:58 11/16/22 12:00 Temperature Pulse Rate 113 H Respiratory Rate 21 Blood Pressure 103/66 107/67 11/16/22 12:00 11/16/22 12:00 Temperature 98.1 F Pulse Rate 114 H Respiratory Rate 22 Blood Pressure Oxygen Delivery Method Room Air Oxygen Flow Rate 0 Narrative Exam Narrative: Heart rate is in the low 1 100s. Blood pressure systolic is in the upper 90s low 100s. Patient is afebrile and is not requiring any oxygen. HEENT shows mucous membranes are moist and pink and he is no evidence of any thrush. Patient has poor dentition Neck: Supple without adenopathy or thyromegaly or jugular venous distention or bruits Chest: Clear to auscultation without wheezes, rhonchi or crackles. Patient does have prolonged expiratory phase Cor: Irregularly irregular rhythm at a rate of 98 distant S1-S2 Abdomen: Positive bowel sounds, soft, nontender Extremities: No edema, pulses intact Neurologic exam nonfocal Objective Labs 11/16/22 04:13 11/16/22 04:13 Labs: Laboratory Results - last 24 hr 11/16/22 11/16/22 11/16/22 04:13 04:13 04:13 WBC 7.3 RBC 4.16 L Hgb 9.4 L Hct 29.7 L MCV 71.3 L MCH 22.7 L MCHC 31.8 RDW 21.2 H Plt Count 167 Neut % (Auto) 78.2 H Lymph % (Auto) 9.7 L [place] % (Auto) 10.3 Eos % (Auto) 1.4 L Baso % (Auto) 0.4 Neut # (Auto) 5700 Lymph # (Auto) 700 L [place] # (Auto) 800 Eos # (Auto) 100 Baso # (Auto) 0 RBC Morphology See below Hypochromasia 1+ H Anisocytosis 3+ H Microcytosis 1+ H Ovalocytes 1+ H Acanthocytes (Spur) 1+ Schistocytes 1+ H Sodium 137 Potassium 4.3 Chloride 114 H Carbon Dioxide 19 L BUN 15 Creatinine 0.79 Estimated GFR > 60 BUN/Creatinine Ratio 19.0 Glucose 82 Calcium 7.1 L Magnesium 1.4 L Total Bilirubin 0.6 AST 23 ALT 29 Alkaline Phosphatase 109 Total Protein 4.6 L Albumin 2.1 L Globulin 2.5 Albumin/Globulin Ratio 0.8 L PFSH Medical History Arthritis Atrial fibrillation Atrial flutter Barretts esophagus CHF (congestive heart failure) Chronic atrial fibrillation Chronic cough Chronic heart failure with preserved ejection fraction Degenerative arthritis Eosinophilia GERD (gastroesophageal reflux disease) GI bleed History of cardioversion Iron deficiency anemia Mixed hyperlipidemia Physical deconditioning Pulmonary fibrosis Spinal stenosis of lumbar region with neurogenic claudication Thrombocytopenia Thrombotic thrombocytopenic purpura (TTP) Urinary retention Surgical History History of coronary angioplasty with insertion of stent Hx of cholecystectomy Hx of tonsillectomy Family History Mother Breast cancer Social History marital status: household members: spouse Smoking Status: Never smoker alcohol intake: current Assessment & Plan Assessment & Plan narrative: Assessment & Plan narrative: #Hypotensive shock/sepsis. Improved. Patient is off Levophed and we will decrease his IV fluids. Blood pressure is low systolic blood patient is asymptomatic. ? Somewhat minimally tachycardic.? But unable to give higher doses of metoprolol for rate control due to blood pressure Continue with IV fluids and decrease to 84 cc an hour from 150 cc given his previous history of right heart failure. Will continue on Appropriate broad- spectrum antibiotic therapy.? 4th dose of Zosyn is due this evening. Previous echo demonstrated significant evidence of right heart failure and in that setting generally concur fluid resuscitation is what is required.? Blood cultures negative thus far #UTI in setting of indwelling Mccormack #Urinary retention Switched to Zosyn based on culture, continue with IVF but will decrease rate Jayna in urine culture at this point we will not treat. I suspect that this is a contaminant and not a pathogen. #Atrial fibrillation with RVR now with rate well-controlled. Patient did receive IV dig but is not currently on digoxin . continue eliquis for anticoagulation. Will continue on low-dose metoprolol. Will continue on telemetry. He does not any longer me ICU status. We will increase metoprolol as were able. If he continues to have questionable tachycardia then consider reinstituting Lanoxin. #Hx of chronic diastolic heart failure present on admission Left ventricular function normal on echocardiography in September of this year.? Did show evidence of significant evidence probable right heart failure likely secondary to his pulmonary disease.? No evidence of acute congestive heart failure at this time despite several L of fluid resuscitation.? Continue monitor carefully. Encourage IS use. #Pulmonary fibrosis Based primarily on CT imaging.? Has not required oxygen therapy as an outpatient.? Seems stable at this point. Monitor. No current oxygen requirement #Elevated LFTs Benign exam, monitor, consider CT abd/pelvis is worsening.? The elevated LFTs and alk-phos could be secondary to his significant infection which caused him to present with some degree of hypotension etcetera.? Hypotension itself could also be somewhat responsible and if so these numbers should improve rather rapidly. Will recheck in a.m.. #protein calorie malnutrition, severe continue supplementation of diet # normocytic anemia slightly worsened without evidence of acute blood loss Plan: Will continue to monitor # leukocytosis resolved with IV antibiotics and IV fluids Plan: Will monitor code: DNR MDM: Tory DVT ppx: tala PCP: Miriam diet: regular with supplements 60 minutes spent with patient in reviewing his chart and workup and meeting with patient and discussing with nursing and physicians and formulating a plan and documentation
--- NOTE | 2022-11-16 13:24 | CM.DPC ---
DCP SNF Planning Per MD, pt making some progress and still recommending SNF. Per OT, completed eval and note in and feels pt could benefit from SNF. PT eval still pending. SW faxed updated MD and OT note to [facility] to submit for insurance auth as they can accept pending SNF auth. SW to fax PT eval note to [facility] when available. Plan: SW to follow for likely d/c to [facility] tomorrow if insurance auth obtained. PASRR completed. Ness Sheridan MSW
[2022-11-16] MEDS: MAGNESIUM SULFATE 2 GM/50 ML PIGGYBACK IV (13:25)
--- NOTE | 2022-11-16 17:04 | PT.IIE ---
Current Diagnoses Sepsis, unspecified organism (11/13/22) Surgical History (Last Reviewed 11/14/22 @ 10:40 by Brian Simons MD) History of coronary angioplasty with insertion of stent Hx of cholecystectomy Hx of tonsillectomy Medical History (Last Reviewed 11/14/22 @ 10:40 by Brian Simons MD) Arthritis Atrial fibrillation Atrial flutter Barretts esophagus CHF (congestive heart failure) Chronic atrial fibrillation Chronic cough Chronic heart failure with preserved ejection fraction Degenerative arthritis Eosinophilia GERD (gastroesophageal reflux disease) GI bleed History of cardioversion Iron deficiency anemia Mixed hyperlipidemia Physical deconditioning Pulmonary fibrosis Spinal stenosis of lumbar region with neurogenic claudication Thrombocytopenia Thrombotic thrombocytopenic purpura (TTP) Urinary retention Physical Therapy Inpatient Evaluation/Re-Eval M1 PT/OT-IP Prior Functional Status Start: 11/16/22 12:25 Freq: NEEDED Status: Active Protocol: Document 11/16/22 16:51 ES (Rec: 11/16/22 17:04 ES [id number]) Medical Review Prior Functional Status Medical History Reviewed Yes Communication Independent Mobility and Gait Pt states have been mainly WC bound at home. Previously was getting in/out of bed and w/c using squat pivot transfer or stand pivot with FWW with assistance. Activities of Daily Living and IADL's Pt states occasionally pt's will assist him with LB dressing needs in bed. Social History Household Members spouse Living Arrangements House Number of Floors (Floors) Two Floors Number of Stairs To Enter/Railing? ramp to enter and ramp to second level Home Environment High Toilet,Tub/Shower Home Equipment Front Wheel Walker,Manual Wheelchair,Tub Transfer Bench, Hand Held Shower,Long Handled Sponge,Long Handled Shoe Horn, Hybrid Technologist,Sock Aid,Grab Bars Near Toilet,Grab Bars In Shower Additional Social History Comment Pt's assists pt with money management needs and with dressing at times. Patient has been getting HH PT , OT, and bath aide weekly. M2 PT-IP Current Condition Start: 11/15/22 09:05 Freq: NEEDED Status: Active Protocol: Document 11/16/22 16:51 ES (Rec: 11/16/22 17:04 ES [id number]) Physical Therapy Current Condition Current Condition Evaluation Date 11/16/22 Treatment Diagnosis Sepsis, weakness and deconditioning Onset Date 11/13/22 M3 PT-IP Subjective Start: 11/15/22 09:05 Freq: NEEDED Status: Active Protocol: Document 11/16/22 16:51 ES (Rec: 11/16/22 17:04 ES [id number]) Subjective Physical Therapy Visit Type Type Initial Evaluation Visit Start Time 15:23 Visit Stop Time 15:52 Total Visit Minutes 29 Physical Therapy Visit Comments Patient Comments Patient alert, up in chair. Denied dizziness or lightheadedness. Agreeable to work with PT. Therapy Pain Assessment Pain Present Pain Present Denied Pain M4 PT-IP Mobility and Gait Start: 11/15/22 09:05 Freq: NEEDED Status: Active Protocol: Document 11/16/22 16:51 ES (Rec: 11/16/22 17:04 ES [id number]) PT-Transfer Assessment Sit to and From Stand Sit to and from Stand Moderate Assistance,1 Person Assistance,Use of Upper Extremities Equipment Transfer Assistive Device Gait Belt Transfers Transfer Destination Bed,Chair Transfer Technique Squat Pivot Transfer Ability Level of Assist Moderate Assistance,1 Person Assistance,Use of Upper Extremities Gait Assessment Comments Gait Comments Nonambulatory at baseline PT-Balance Assessment Sitting Balance and Reactions Static Sitting Balance Ability Good Dynamic Sitting Balance Ability Good Standing Balance and Reactions Static Standing Balance Ability Fair Dynamic Standing Balance Ability Poor Device Used FWW M5 PT-IP Objective Assessments Start: 11/15/22 09:05 Freq: NEEDED Status: Active Protocol: Document 11/16/22 16:51 ES (Rec: 11/16/22 17:04 ES [id number]) Orientation Orientation/Cognition Level of Alertness Alert Orientation Name,Age,Birthday,Month,Date, Year,Day of Week,Place, Situation Language Function Ability No Deficits Noted Safety Awareness Understands Safety Issues Memory Description No Deficits Noted Gross Range of Motion Upper Extremity ROM Assessment Within Functional Limits Lower Extremity ROM Assessment Bilaterally Impaired Impairments B knee and ankle contractures noted; knee flexion contractures ~40 degrees from extension, ankles lacking ~10 degrees from neutral dorsiflexion Strength Upper Extremity Strength Assessment Within Functional Limits Lower Extremity Strength Assessment Bilaterally Impaired Hip Grossly 4-/5 Knee Grossly 4-/5 Ankle Grossly 3+/5 Coordination Assessment Gross Coordination Gross Coordination WNL M6 PT-IP Treatment Start: 11/15/22 09:05 Freq: NEEDED Status: Active Protocol: Document 04/25/23 16:51 ES (Rec: 11/16/22 17:04 ES [id number]) Physical Therapy Treatment Exercises Exercises Ankle Pumps,Quad Sets Education Education Provided Safety Other Treatments Other Treatment Performed Education on importance of stretching knees into extension throughout the day and performing quad sets to encourage increased ROM. M7 PT-IP Assessment and Plan Start: 11/15/22 09:05 Freq: NEEDED Status: Active Protocol: Document 11/16/22 16:51 ES (Rec: 11/16/22 17:04 ES [id number]) PT Summary Assessment and Plan Potential Rehabilitation Potential Good Status of Condition at Evaluation Stable Summary Impairments ROM,Strength,Balance,Bed Mobility,Transfers,Gait Assessment Summary Patient is a 81 year old male who presents with impaired functional mobility due to the above problems. He demonstrates B ankle and knee flexion contractures making it difficult for him to come to stand. He was able to demonstrate squat pivot transfers bed to/from chair with mod A. He currently requires increased assistance with mobility than his previous abilities and would benefit from SNF for further rehab to return to his prior functional level. Goals Bed Mobility Goal Standby Assistance Transfer Goal Standby Assistance Other Goals Patient will be able to perform squat pivot transfer with LRAD bed to/from w/c and toilet with SBA. Days to Meet Goals 3 Frequency of Treatment Frequency Of Treatment Once a Day Treatment Plan Physical Therapy Treatment Plan Bed Mobility Training,Transfer Training,Therapeutic Exercise ,Balance Retraining,Discharge Planning Recommendations To Nursing Amount of Assist Needed 1 Person Assist Discharge Recommendations PT Discharge Recommendations SNF Rehab Transportation Needs at Discharge Wheelchair/Cabulance
--- NOTE | 2022-11-16 18:06 | PC.NURSE ---
Day shift: Pt up with OT in chair for lunch. VSS. Pt stating that he feels better. Provider rounded, ordered magnesium sulfate IV. At approximately 1400, pt became hypotensive (see monitor capture vital signs). Provider Dr. Montemayor notified, magnesium sulfate IV stopped. Fluids increased per communication order. Pt's BP increased back to his baseline, currently 101/57 MAP 73. Other VSS. Care ongoing.
[2022-11-17] VITALS (10 sets, daily range): BP systolic 92–127; BP diastolic 57–88; PULSE 81–119; RESP 15–20; TEMP 36.3–36.8; O2SAT 94–99
[2022-11-17] MEDS: PIPERACILLIN/TAZO 3.375 GM in SODIUM CHLORIDE 0.9% 100 ML IV ×3 (05:38→21:20)
[2022-11-17 06:13] LABS: Basophils Absolute Auto 100 /uL (0-100); Basophils Percent Auto 0.8 % (0-2); Eosinophils Absolute Auto 300 /uL (0-450); Hematocrit 30.5 % (41-53); Hemoglobin 9.6 g/dL (13.5-17.5); Lymphocytes Absolute Auto 700 /uL (1100-4500); Lymphocytes Percent Auto 10.8 % (25-40); Mean Corpuscular HGB Conc 31.5 % (30-36); Mean Corpuscular Hemoglobin 22.4 PG (26-34); Mean Corpuscular Volume 71.1 fL (80-100); Monocytes Absolute Auto 600 /uL (0-900); Monocytes Percent Auto 9.9 % (3-14); Neutrophils Absolute Auto 4900 /uL (1500-7000); Neutrophils Percent Auto 74.5 % (50-75); Platelet Count 176 X10^3/uL (150-400); Red Blood Cell Count 4.28 X10^6/uL (4.5-5.9); Red Cell Distribution Width 21.2 % (11.6-14.8); White Blood Cell Count 6.5 X10^3/uL (4.5-11.0)
[2022-11-17 06:17] LABS: Alanine Aminotransferase 25 IU/L (<50); Albumin 2.2 g/dL (3.5-5.0); Albumin Globulin Ratio 0.8 (1.0-2.8); Alkaline Phosphatase 109 U/L (38-126); Aspartate Aminotransferase 22 IU/L (17-59); BUN Creatinine Ratio 19.5 (6-22); Bilirubin Total 0.5 mg/dL (0.2-1.3); Blood Urea Nitrogen 15 mg/dL (9-20); Calcium 7.1 mg/dL (8.4-10.2); Carbon Dioxide 20 mmol/L (22-32); Chloride 113 mmol/L (98-107); Estimated Glomerular Filt Rate > 60 mL/min (>60); Globulin 2.6 g/dL (1.7-4.1); Glucose 78 mg/dL (80-110); HEMOLYSIS < 15 (0-50); Magnesium 1.3 mg/dL (1.6-2.3); Potassium 4.1 mmol/L (3.4-5.1); Sodium 139 mmol/L (137-145); Total Protein 4.8 g/dL (6.3-8.2)
[2022-11-17 06:24] LABS: Add Manual Diff / Slide Review SLIDE REVIEW
[2022-11-17 07:12] LABS: Acanthocytes 1+; Anisocytosis 2+; Hypochromasia 1+; Microcytosis 1+; Ovalocytes 1+; Schistocytes 1+
--- NOTE | 2022-11-17 08:51 | PM.PN.1 ---
Subjective Subjective Date Patient Seen: 11/17/22 Time Patient Seen: 08:51 Interval history: cc: weakness Doing very well on IVF/abx, feeling stronger adn able to work more with PT. CM has secured possible discharge planf nyla martins. His BP is stable off pressurs but dropped with mag IV supplementation yesterday. no pain. up to chair a lot of yesterday. Exam Vital Signs (past 8 hours): - 11/17/22 02:23 11/17/22 07:02 Temperature 97.3 F L 97.3 F L Pulse Rate 119 H 103 H Respiratory Rate 19 20 Blood Pressure 99/58 L 122/74 Pulse Oximetry 94 96 Oxygen Flow Rate 0 0 Oxygen Delivery Method Room Air Oxygen Flow Rate 0 Narrative Exam Narrative: alert elder laying in bed Const General: frail appearing Nutritional Appearance: cachectic Resp Other: clear to auscultation no crackles bilaterally Cardio Other: regular rate S1/S2 no pedal edema GI Other: soft nontender normal bowel sounds Neuro General: patient alert, patient awake, patient oriented x3 and moves all extremities Other: bilateral moderate lower extremity contractures Objective Labs 11/17/22 05:45 11/17/22 05:45 Labs: Laboratory Results - last 24 hr 11/17/22 11/17/22 05:45 05:45 WBC 6.5 RBC 4.28 L Hgb 9.6 L Hct 30.5 L MCV 71.1 L MCH 22.4 L MCHC 31.5 RDW 21.2 H Plt Count 176 Neut % (Auto) 74.5 Lymph % (Auto) 10.8 L [place] % (Auto) 9.9 Eos % (Auto) 4.0 Baso % (Auto) 0.8 Neut # (Auto) 4900 Lymph # (Auto) 700 L [place] # (Auto) 600 Eos # (Auto) 300 Baso # (Auto) 100 RBC Morphology See below Hypochromasia 1+ H Anisocytosis 2+ H Microcytosis 1+ H Ovalocytes 1+ H Acanthocytes (Spur) 1+ Schistocytes 1+ H Sodium 139 Potassium 4.1 Chloride 113 H Carbon Dioxide 20 L BUN 15 Creatinine 0.77 Estimated GFR > 60 BUN/Creatinine Ratio 19.5 Glucose 78 L Calcium 7.1 L Magnesium 1.3 L Total Bilirubin 0.5 AST 22 ALT 25 Alkaline Phosphatase 109 Total Protein 4.8 L Albumin 2.2 L Globulin 2.6 Albumin/Globulin Ratio 0.8 L [facility] Medical History Arthritis Atrial fibrillation Atrial flutter Barretts esophagus CHF (congestive heart failure) Chronic atrial fibrillation Chronic cough Chronic heart failure with preserved ejection fraction Degenerative arthritis Eosinophilia GERD (gastroesophageal reflux disease) GI bleed History of cardioversion Iron deficiency anemia Mixed hyperlipidemia Physical deconditioning Pulmonary fibrosis Spinal stenosis of lumbar region with neurogenic claudication Thrombocytopenia Thrombotic thrombocytopenic purpura (TTP) Urinary retention Surgical History History of coronary angioplasty with insertion of stent Hx of cholecystectomy Hx of tonsillectomy Family History Mother Breast cancer Social History marital status: household members: spouse Smoking Status: Never smoker alcohol intake: current Assessment & Plan Assessment & Plan narrative: #Hypotensive shock/sepsis Improved, off Levophed and urine is clearing up.? watch metoprolol for rate control due to blood pressure. Will continue on Appropriate broad-spectrum antibiotic therapy.? 5th dose of Zosyn is due this evening may be done tomrrow.? Previous echo demonstrated significant evidence of right heart failure and in that setting generally concur fluid resuscitation is what is required.? Blood cultures negative thus far. #UTI in setting of indwelling Mccormack #Urinary retention Switched to Zosyn based on culture, continue with IVF but will decrease rate Jayna in urine culture at this point we will not treat.? I suspect that this is a contaminant and not a pathogen. #hypomagnesemia pressures drop with IV supplementation, continue oral pills #hypokalemia stable, pt does better with caps or liquids #Atrial fibrillation with RVR Now with rate well-controlled, continue eliquis for anticoagulation and low-dose metoprolol.? We will resume metoprolol as able.? #Hx of chronic diastolic heart failure present on admission Left ventricular function normal on echocardiography in September of this year.? Did show evidence of significant evidence probable right heart failure likely secondary to his pulmonary disease.? No evidence of acute congestive heart failure at this time despite several L of fluid resuscitation.? Continue monitor carefully. Encourage IS use. #Pulmonary fibrosis Based primarily on CT imaging.? Has not required oxygen therapy as an outpatient.? Seems stable at this point. Monitor.? No current oxygen requirement #Elevated LFTs Benign exam, resolved #protein calorie malnutrition, severe #hypoalbuminemia continue supplementation of diet # normocytic anemia slightly worsened without evidence of acute blood loss #Hx of TTP stable some dilution and schistocytes noted platelets stable # leukocytosis resolved with IV antibiotics and IV fluids will monitor dispo: clinical improvement noted but still critically unable to provide care due to mobility and strength issues. SNF bed secured for tomorrow. code: DNR MDM: Tory DVT ppx: tala PCP: Miriam diet: regular with supplements time spent: 40 min
[2022-11-17] MEDS: POTASSIUM CHLORIDE 20 MEQ/15 ML UDC 40 MEQ PO ×2 (09:19→21:19)
[2022-11-17] MEDS: FOLIC ACID 1 MG TABLET PO (09:20)
[2022-11-17] MEDS: METOPROLOL ER 25 MG TABLET 12.5 MG PO ×2 (09:20→21:19)
[2022-11-17] MEDS: MAGNESIUM OXIDE 400 MG TABLET PO ×2 (09:20→21:19)
[2022-11-17] MEDS: PANTOPRAZOLE DR 40 MG TABLET PO ×2 (09:20→23:07)
[2022-11-17] MEDS: TAMSULOSIN 0.4 MG CAPSULE PO (09:20)
[2022-11-17] MEDS: ATORVASTATIN 20 MG TABLET 40 MG PO (09:21)
[2022-11-17] MEDS: APIXABAN 5 MG TABLET 2.5 MG PO ×2 (09:21→21:19)
[2022-11-17] MEDS: MAGNESIUM SULFATE 2 GM/50 ML PIGGYBACK IV (09:29)
[2022-11-17 13:27] LABS: COVID19 -Nasal RAPID Negative (Negative)
--- NOTE | 2022-11-17 13:27 | PT.IPTN ---
Current Diagnoses Sepsis, unspecified organism (11/13/22) Physical Therapy Treatment Note M2 PT-IP Current Condition Start: 11/15/22 09:05 Freq: NEEDED Status: Active Protocol: Document 11/16/22 16:51 ES (Rec: 11/16/22 17:04 ES [id number]) Physical Therapy Current Condition Current Condition Evaluation Date 11/16/22 Treatment Diagnosis Sepsis, weakness and deconditioning Onset Date 11/13/22 M3 PT-IP Subjective Start: 11/15/22 09:05 Freq: NEEDED Status: Active Protocol: Document 11/17/22 14:08 TS (Rec: 11/17/22 14:34 TS [id number]) Subjective Physical Therapy Visit Type Type Treatment Note Visit Start Time 13:27 Visit Stop Time 14:01 Total Visit Minutes 34 Number of TEXTILE DESIGNER Visits 1 Physical Therapy Visit Comments Patient Comments Pt found resting in chair, denied any pain, agreeable to work with PT. Therapy Pain Assessment Pain Present Pain Present Denied Pain M4 PT-IP Mobility and Gait Start: 11/15/22 09:05 Freq: NEEDED Status: Active Protocol: Document 11/17/22 14:08 TS (Rec: 11/17/22 14:34 TS [id number]) PT-Bed Mobility Assessment Supine to Sit Supine to Sit Minimal Assistance Scooting Scooting to Edge of Bed Contact Guard Assistance PT-Transfer Assessment Sit to and From Stand Sit to and from Stand Moderate Assistance,Maximum Assistance,1 Person Assistance ,Use of Upper Extremities Equipment Transfer Assistive Device Gait Belt,Front Wheeled Walker Transfers Transfer Destination Chair Transfer Technique Squat Pivot Transfer Ability Level of Assist Minimal Assistance,1 Person Assistance,Use of Upper Extremities Comments Mobility Comments Pt found resting in bed, agreeable to PT session. Pt performed quad sets x5 BLE, contractures in LEs, achieved greater ext in LLE vs RLE. Supine to sit HOB elevated 30D Isai for uprighting trunk, required cues for feet flat on floor. Pt sat EOB with BUE support with flexed posture, maintained goodmidline. Attempted sit to stand x2 MaxA , unable to fully extend knees into standing. Pt performed squat pivot transfer Isai into bedside chair with BUE support, provided cues for sequencing. Pt was left in bedside chair with call light nearby, all needs met. Gait Assessment Comments Gait Comments Nonambulatory at baseline PT-Balance Assessment Sitting Balance and Reactions Static Sitting Balance Ability Good Dynamic Sitting Balance Ability Good Standing Balance and Reactions Static Standing Balance Ability Poor Dynamic Standing Balance Ability Poor Device Used FWW M5 PT-IP Objective Assessments Start: 11/15/22 09:05 Freq: NEEDED Status: Active Protocol: Document 11/16/22 16:51 ES (Rec: 11/16/22 17:04 ES [id number]) Orientation Orientation/Cognition Level of Alertness Alert Orientation Name,Age,Birthday,Month,Date, Year,Day of Week,Place, Situation Language Function Ability No Deficits Noted Safety Awareness Understands Safety Issues Memory Description No Deficits Noted Gross Range of Motion Upper Extremity ROM Assessment Within Functional Limits Lower Extremity ROM Assessment Bilaterally Impaired Impairments B knee and ankle contractures noted; knee flexion contractures ~40 degrees from extension, ankles lacking ~10 degrees from neutral dorsiflexion Strength Upper Extremity Strength Assessment Within Functional Limits Lower Extremity Strength Assessment Bilaterally Impaired Hip Grossly 4-/5 Knee Grossly 4-/5 Ankle Grossly 3+/5 Coordination Assessment Gross Coordination Gross Coordination WNL M6 PT-IP Treatment Start: 11/15/22 09:05 Freq: NEEDED Status: Active Protocol: Document 11/17/22 14:08 TS (Rec: 11/17/22 14:34 TS [id number]) Physical Therapy Treatment Exercises Exercises Ankle Pumps,Quad Sets Other Treatments Other Treatment Performed Education on importance of stretching knees into extension throughout the day and performing quad sets to encourage increased ROM. M7 PT-IP Assessment and Plan Start: 11/15/22 09:05 Freq: NEEDED Status: Active Protocol: Document 11/17/22 14:08 TS (Rec: 11/17/22 14:34 TS [id number]) PT Summary Assessment and Plan Potential Rehabilitation Potential Good Status of Condition at Evaluation Stable Summary Impairments ROM,Strength,Balance,Bed Mobility,Transfers,Gait Assessment Summary Pt continues to demonstrate B ankle and knee flexion contractures. Encouraged pt to continue quad sets to increase knee ext, greater extension in LLE than RLE. Pt attempted sit to stand x2 MaxA , could not fully extend to come into standing. Pt progressed squat pivot transfer to Isai from ModA in previous session. PT continues to recommend SNF to progress bed mobility, transfers and gait. Goals Bed Mobility Goal Standby Assistance Transfer Goal Standby Assistance Other Goals Patient will be able to perform squat pivot transfer with LRAD bed to/from w/c and toilet with SBA. Days to Meet Goals 3 Frequency of Treatment Frequency Of Treatment Once a Day Treatment Plan Physical Therapy Treatment Plan Bed Mobility Training,Transfer Training,Therapeutic Exercise ,Balance Retraining,Discharge Planning Other Recommendations and Next Treatment Bed mob, standing tolerance, Focus transfers, gait if tolerated using FWW, chair follow. Recommendations To Nursing Amount of Assist Needed 1 Person Assist Discharge Recommendations PT Discharge Recommendations SNF Rehab Transportation Needs at Discharge Wheelchair/Cabulance
--- NOTE | 2022-11-17 14:33 | CM.DPNOTE ---
DCP Note [facility] accepts for admission tomorrow 11.18.22, COVID PCR updated this afternoon in preparation Updated Dr Pineda. Cabulance transport arranged for 1000 JW
--- NOTE | 2022-11-17 15:20 | OT.IP.TRT ---
Current Diagnoses Sepsis, unspecified organism (11/13/22) Occupational Therapy Treatment Note M2 OT-IP Current Condition Start: 11/16/22 12:25 Freq: Status: Active Protocol: Document 11/16/22 11:34 [facility] (Rec: 11/16/22 12:48 [facility] [id number]) Occupational Therapy Current Condition Current Condition Evaluation Date 11/16/22 Treatment Diagnosis UTI, sepsis M3 OT- IP Subjective and Pain Start: 11/16/22 12:25 Freq: Status: Active Protocol: Document 11/17/22 14:53 [facility] (Rec: 11/17/22 15:37 [facility] [id number]) OT- Subjective Occupational Therapy Visit Type Type Treatment Note Visit Start Time 14:53 Visit Stop Time 15:20 Total Visit Minutes 27 Occupational Therapy Visit Comments Patient Comments Pt agreed to get back to bed. Patient/Caregiver Goals To get better and stronger to be able to walk with the walker eventually. OT Pain Assessment Pain When Pain Assessed At Rest Pain Present Pain Present Denied Pain M4 OT- IP ADL's Start: 11/16/22 12:25 Freq: Status: Active Protocol: Document 11/17/22 14:53 [facility] (Rec: 11/17/22 15:37 [facility] [id number]) OT ADL-Grooming Comments OT Grooming Comments Pt refusing. OT ADL-Oral Care Comments Oral Care Comments Pt refusing at this time. OT ADL-Toileting Comments OT Toileting Comments Mccormack in place. M5 OT- IP IADL's Start: 11/16/22 12:25 Freq: Status: Active Protocol: Document 11/16/22 11:34 [facility] (Rec: 11/16/22 12:48 [facility] [id number]) OT-Instrumental Activities of Daily Living Deficits IADL Deficits Identified Deficits Home Safety Awareness Awareness of Need for Assistance at Home Good Awareness Home Safety Comments Increased time to solve home safety situations. Medication Management Medication Management Comments Pt states still does his own medications, would be best to have assist at this time as pt needing increased time for problem solving at this time. Money Management Money Management Caregiver Provides Assistance Meal Preparation Meal Preparation Caregiver Provides Assist Patient Care Coordinator Patient Care Coordinator Caregiver Provides Assist Driving Driving Concerns Identified Regarding Safety Driving Comments Pt states he was able to drive 2 weeks ago. M6 OT- IP Functional Cognition Start: 11/16/22 12:25 Freq: Status: Active Protocol: Document 11/17/22 14:53 [facility] (Rec: 11/17/22 15:37 [facility] [id number]) Cognitive Factors Limiting Selfcare Function Cognitive Comments Cognitive Assessment Comments Pt realizing that it would be best for him to go to skilled rehab prior to going home. M7 OT- IP Mobility and Balance Start: 11/16/22 12:25 Freq: Status: Active Protocol: Document 11/17/22 14:53 [facility] (Rec: 11/17/22 15:37 [facility] [id number]) OT- Bed Mobility Assessment Sit to Supine Sit to Supine Assist Maximum Assistance,1 Person Assistance OT-Transfer Assessment Transfers Transfer Ability Maximum Assistance,1 Person Assistance Technique Transfer Destination Bed,Chair Transfer Technique Squat Pivot Devices Transfer Assistive Devices Gait Belt Comments Mobility Comments Pt needing use of sheet to assist to help scoot him forwards . MAXA X 1 to squat pivot to the bed and assist to get his legs into bed as well . Pt's nurse also having to assist for positioning needs in the bed. Pt wanting a break from using the waffle cushion underneath him, nursing aware. OT- Balance Assessment Sitting Balance and Reactions Static Sitting Balance Ability Good Dynamic Sitting Balance Ability Fair M8 OT- IP Objective Assessments Start: 11/16/22 12:25 Freq: Status: Active Protocol: Document 11/16/22 11:34 [facility] (Rec: 11/16/22 12:48 [facility] [id number]) OT Gross Range of Motion Upper Extremity Range of Motion ROM Impairments Pt decreased at end ROM. OT Strength Comments Strength Comments BUE strength elbow to distal RUE 5/5, LUE 5/5 to 4/5 M9 OT- IP Assessment and Plan Start: 11/16/22 12:25 Freq: Status: Active Protocol: Document 11/17/22 14:53 [facility] (Rec: 11/17/22 15:37 [facility] [id number]) OT Summary Assessment and Plan Potential Rehabilitation Potential Good Analytic Complexity at Evaluation Moderate Summary OT Impairments Range of Motion,Strength, Balance,Functional Cognition, Functional Mobility,Self- Feeding,Grooming,Dressing, Toileting,Bathing,Toilet Transfers,Shower Transfers, Activity Tolerance Progress Towards Goals Slow Progress due to Medical Issues,Slow Progress due to Activity Tolerance,Slow Progress due to Cognition Assessment Summary Pt needing more assist to get back to bed from the recliner with MAXA. Pt aware would be best for him to to go skilled rehab to get stronger prior to going home. Goals Dressing Goal Standby Assistance Toileting Goal Standby Assistance Bathing Goal Standby Assistance Toilet Transfer Goal Independent Shower Transfer Goal Standby Assistance Days to Meet Goals 15 Frequency of Treatment Frequency Of Treatment Once a Day Treatment Plan OT Treatment Plan ADL Training,Functional Cognition Training,Functional Mobility,Patient/Family Education,Discharge Planning Other Treatment Recommendations and Next Transfer to [facility] with Treatment Focus MODA Discharge Recommendations OT Discharge Recommendations SNF Rehab Transportation Needs at Discharge Wheelchair/Cabulance
[2022-11-17] MEDS: SODIUM CHLORIDE 0.9% 1,000 ML 84 ML IV (23:10)
[2022-11-18 06:20] VITALS: BP 129/69; PULSE 115; RESP 17; TEMP 36.1; O2SAT 98
[2022-11-18] MEDS: PANTOPRAZOLE DR 40 MG TABLET PO (06:21)
[2022-11-18] MEDS: PIPERACILLIN/TAZO 3.375 GM in SODIUM CHLORIDE 0.9% 100 ML IV (06:22)
[2022-11-18 07:54] VITALS: BP 106/69; PULSE 95; RESP 18; TEMP 36.2; O2SAT 96
[2022-11-18] MEDS: APIXABAN 5 MG TABLET 2.5 MG PO (08:23)
[2022-11-18] MEDS: TAMSULOSIN 0.4 MG CAPSULE PO (08:23)
[2022-11-18] MEDS: POTASSIUM CHLORIDE 20 MEQ/15 ML UDC 40 MEQ PO (08:23)
[2022-11-18 08:24] VITALS: BP 106/69; PULSE 95
[2022-11-18] MEDS: FOLIC ACID 1 MG TABLET PO (08:24)
[2022-11-18] MEDS: ATORVASTATIN 20 MG TABLET 40 MG PO (08:24)
[2022-11-18] MEDS: METOPROLOL ER 25 MG TABLET 12.5 MG PO (08:24)
--- NOTE | 2022-11-18 08:42 | P.DS_ITS ---
History of Present Illness History of Present Illness Date Patient Seen: 11/18/22 Time Patient Seen: 08:42 Date of Onset of Symptoms: 11/03/22 Chief complaint: Weakness, Hypotensive Narrative: Pt with PMH sig for TTP, well controlled CHF, afib w/RVR, deconditioning, urinary obstruction, presents to ED via EMS with CC of acute fatigue. Well known to me as PCP and from prior admissions. He was found to be acutely hypotensive in ED and levophed was started after 3Ls IVF and consultation with Dr. Blakely who also recommended considering amiodarone if his HR goes up. He is acutely neutrophilic and leukocytotic and his urine does evidence bacteremia. He was last admitted here two weeks ago for catheter associated UTI/ARANZA - this catheter was initially placed in ED 2 months ago for obstruction then replaced last visit. He last saw urology 2 weeks ago on d/c from inpatient at which time he had failed voiding trial and had catheter replaced. It looks grossly ok now but the urine is infected with bacteremia per lab. He is essentially bed bound but I do not have a specific diagnosis to explain this - he has been declining to work with PT for some time now. He responded to levophed at 8 in the ED and was able to come down to 4 in the unit - he is alert and hungry with systolic in the 100s currently. Notes his has been sick and PO intake has been less than usual. Continues to appear cachectic. Reports last BM was 2 days ago but this has not been a regular issue for him. Increasing contractures noted. Discharge Providers Provider Date of admission: 11/13/22 16:53 Discharge Date: 11/18/22 Primary care physician: Willy Pineda MD Consults: 11/13/22 11:56 Consult to FIELD ASSISTANT - Group Chief Operator Stat Comment: 11/13/22 19:24 Consult to Occupational Therapy Evaluate & Treat Comment: Physician Instructions: Evaluate and treat Consult to Physical Therapy Evaluate & Treat Comment: Physician Instructions: Evaluate and Treat Discharge provider: Willy Pineda MD Summary Hospital Course Discharge Diagnosis: #Hypotensive shock/sepsis #UTI in setting of indwelling Smith #Urinary retention #hypomagnesemia #hypokalemia #Atrial fibrillation with RVR #Hx of chronic diastolic heart failure present on admission #Pulmonary fibrosis #Elevated LFTs #protein calorie malnutrition, severe #hypoalbuminemia # normocytic anemia slightly worsened without evidence of acute blood loss #Hx of TTP #leukocytosis Hospital Course: Mr. Pro improved dramatically with IV fluid resuscitation and antibiotics and after two days he was able to stay off levophed or any pressor support. his ROM and activity levels improved he was able to work with PT who recommended SNF and placement arrangements were made. He is now s/p 5 days of antibiotics including zosyn - he does still have an indwelling catheter he is working with urology on getting it out - placed initially in ED 2 months ago for obstruction. He has his next follow up appointment with urology on November 24 I believe - we will see about moving that up perhaps. Status at Discharge Cognitive/behavioral status at discharge: at baseline, oriented Functional status at discharge: wheelchair bound Overall status at discharge: patient is progressing back to baseline Exam Vital Signs (past 8 hours): - 11/18/22 06:20 11/18/22 07:54 11/18/22 08:24 Temperature 97 F L 97.1 F L Pulse Rate 115 H 95 H 95 H Respiratory Rate 17 18 Blood Pressure 129/69 106/69 106/69 Pulse Oximetry 98 96 Oxygen Flow Rate 0 0 Oxygen Delivery Method Room Air Oxygen Flow Rate 0 Narrative Exam Narrative: alert elder laying in bed nibbling at breakfast Const Nutritional Appearance: cachectic HENMT Head: normocephalic and atraumatic Eyes General: appearance normal, both eyes and all related structures Resp Other: clear to auscultation no crackles - L lower field more borboyrgmus Cardio Other: a little fast, a little irregular, S1/S2 GI Other: active boowel sounds all quadrants Other: smith draining clear urine Neuro General: patient alert, patient awake, moves all extremities, CN's II-XI intact bilaterally and unable to assess gait Extrem Other: moderate contractures of both legs. mild 1+ pedal edema. Objective Labs 11/17/22 05:45 11/17/22 05:45 Labs: Laboratory Results - last 24 hr 11/17/22 12:51 SARS-CoV-2 (PCR) Negative [facility] Medical History Arthritis Atrial fibrillation Atrial flutter Barretts esophagus CHF (congestive heart failure) Chronic atrial fibrillation Chronic cough Chronic heart failure with preserved ejection fraction Degenerative arthritis Eosinophilia GERD (gastroesophageal reflux disease) GI bleed History of cardioversion Iron deficiency anemia Mixed hyperlipidemia Physical deconditioning Pulmonary fibrosis Spinal stenosis of lumbar region with neurogenic claudication Thrombocytopenia Thrombotic thrombocytopenic purpura (TTP) Urinary retention Surgical History History of coronary angioplasty with insertion of stent Hx of cholecystectomy Hx of tonsillectomy Family History Mother Breast cancer Social History marital status: household members: spouse Smoking Status: Never smoker alcohol intake: current Discharge Assessment & Plan Assessment and Plan Assessment: #Hypotensive shock/sepsis Resolved.? ? Blood cultures negative thus far. #UTI in setting of indwelling Smith #Urinary retention s/p 5 days of IV abx - urine looks better pt much better Jayna in urine culture suspect that this is a contaminant and not a pathogen. #hypomagnesemia pressures drop with IV supplementation, got some po supplements instead, f/u as outpatient #hypokalemia stable, pt does better with caps or liquids for supplements/ #Atrial fibrillation with RVR Now with rate well-controlled, continue eliquis for anticoagulation and low-dose metoprolol.? #Hx of chronic diastolic heart failure present on admission Left ventricular function normal on echocardiography in September of this year.? Did show evidence of significant evidence probable right heart failure likely secondary to his pulmonary disease.? No evidence of acute congestive heart failure at this time despite aggressive fluid resuscitation.? Continue monitor carefully for pedal edema/crackles encourage mobilization. Encourage hydration and IS use. #Pulmonary fibrosis Based primarily on CT imaging.? Has not required oxygen therapy. #Elevated LFTs Benign exam, resolved. #protein calorie malnutrition, severe #hypoalbuminemia appetite improving. continue supplementation of diet. # normocytic anemia slightly worsened without evidence of acute blood loss #Hx of TTP stable some dilution and schistocytes noted platelets stable monitor # leukocytosis resolved with IV antibiotics and IV fluids dispo: to SNF this morning code: DNR MDM: Tory DVT ppx: eliquis PCP: Miriam diet: regular with supplements time spent: 45 min Discharge Plan Discharge Plan Patient Disposition: SNF Provider Discharge Comment: provide oral hydration prn - gatorade or equivalent should be within arm's reach at all times Discharge orders & Medications Prescriptions: New acetaminophen 325 mg Tablet 650 mg PO Q6H PRN (Reason: Fever/Mild Pain (1-3)) Qty: 20 0RF potassium chloride 20 mEq/15 mL Liquid 40 meq PO BID 30 Days Qty: 1800 0RF ondansetron 4 mg Tablet,Disintegrating 4 mg sublingual NOW PRN (Reason: Nausea And Vomiting) Qty: 30 10RF Continued folic acid 1 mg Tablet 1 mg PO DAILY tamsulosin [Flomax] 0.4 mg capsule 0.4 mg PO DAILY 30 Days Qty: 7 0RF atorvastatin 40 mg Tablet 40 mg PO DAILY Rx Instructions: in evening metoprolol succinate 25 mg tablet extended release 24 hr 12.5 mg PO BID Patient Comments: Take 1/2 tablet by mouth twice a day for blood pressure control pantoprazole 40 mg Tablet,Delayed Release (Dr/Ec) 40 mg PO 0700,2100 Qty: 180 1RF apixaban 2.5 mg tablet 2.5 mg PO BID Discontinued potassium chloride 20 mEq tablet,ER particles/crystals 40 meq PO BID Qty: 180 3RF Follow up/Referrals: Willy Pineda MD [Primary Care Provider] - Diet/Activity/Treatments Diet: Regular Visit Report/Discharge Packet Stand Alone Forms: Patient Portal/API Discharge Data Primary Care Provider: Willy Pineda
[2022-11-18 09:38] VITALS: PULSE 95
--- NOTE | 2022-11-18 10:01 | PC.NURSE ---
Called [facility] and spoke with Amita about pt transferring. Updated Amita about pt status, treatment, new meds, chronic smith, ADLs and ambulation status. Amita had no further questions/concerns at this time. Pt left via wheelchair with hospital gown on and all belongings packed with him, given to valerie @ 1000.
--- NOTE | 2022-11-18 12:02 | CM.DPNOTE ---
DC Note Discharge order placed this morning by Dr Pineda and patient/spouse remain agreeable to plan for discharge to [facility] Coordinated the discharge as follows: Cabulance transport arranged for 1000 p/u by [facility], signed med list, DC Summary and completed and signed PASRR faxed to [facility] RN Mey gave nurse to nurse report. IMM provided to patient Plan: Discharge to [facility] via cabulance JW
== END 2022-11-18 10:00 | DRG 698 ==
LOC: ED 16:31 → AC 16:54 → ICU 16:56 → AC 11-16 19:34
PROVIDERS: Family Medicine; Internal Medicine; Admitting Provider Family Medicine; Emergency Provider Emergency Medicine; PCP Family Medicine; Referring Provider Emergency Medicine; Visit Provider Family Medicine
DX: T83.511A Infection and inflammatory reaction due to indwelling urethral catheter, initial encounter (principal); A41.9 Sepsis, unspecified organism; E43 Unspecified severe protein-calorie malnutrition; R65.21 Severe sepsis with septic shock; I50.32 Chronic diastolic (congestive) heart failure; I48.91 Unspecified atrial fibrillation; D50.9 Iron deficiency anemia, unspecified; K21.9 Gastro-esophageal reflux disease without esophagitis; E83.42 Hypomagnesemia; R33.9 Retention of urine, unspecified; E78.2 Mixed hyperlipidemia; Z79.01 Long term (current) use of anticoagulants; Z20.822 Contact with and (suspected) exposure to COVID-19; Z66 Do not resuscitate; Z68.22 Body mass index [BMI] 22.0-22.9, adult
CPT/HCPCS: 36415; 71045; 80053; 81001; 82550; 83605; 83690; 83735; 83880; 84145; 84484; 85025; 85610; 85730; 87040; 87077; 87086; 87633; 87635; 87797; 93005; 93010; 96365; 96368; 96375; 97162; 97166; 97530; 99233; 99285; 99291; C9803; J0696; J1160; J2543; J3475